=== PATIENT | male | born 1965 | race African-American/Black ===

== ENCOUNTER 2017-12-29 01:20 | Emergency (ER) | payer MEDICAID, SELFPAY ==
[2017-12-29 01:21] VITALS: BP 176/108; PULSE 72; RESP 20; TEMP 36.6; O2SAT 100; BMI 33.4
--- NOTE | 2017-12-29 01:39 | ED.DCSUM_ITS ---
- ER Visit Summary Date of Service: 12/29/17 Chief Complaint: [] Bilateral toes tingling History of Present Illness: The patient is a 52 M patient stated over the last 3 days he has had bilateral diffuse toe tingling. It is continuous. Current severity is mild. No history of neuropathy or diabetes. He has never had this before. He denies any significant pain. No home treatment. Current severity is mild. Physical Examination: [] Vital signs reviewed General: Well-nourished well-developed Head: Normocephalic atraumatic Eyes: Pupils equal round and reactive to light extraocular movements intact ENT: TMs clear no hemotympanum no trauma Neck: Nontender full range of motion Cardiovascular: Regular rate rhythm no murmurs normal S1-S2 Respiratory: No distress clear to auscultation bilaterally chest nontender Abdomen: Soft nontender nondistended normal bowel sounds no masses Back: Nontender no CVA tenderness Extremities: Nontender active range of motion ?4 extremities no trauma. Patient has normal sensation when I touch his toes. Normal range of motion. Dorsalis pedis and posterior tibialis pulses are normal. Normal capillary refill. Normal temperature and color of the toes. No evidence of ischemia. Skin: Normal color no trauma Neuro alert oriented cranial nerves II through XII intact normal strength sensation reflexes Test Results: [] Emergency Department Course and Treatment: [] Electrolytes show calcium of 8.0. Patient given dose of calcium carbonate. He will continue 1 dose of this daily for the next week and see if his symptoms resolve. This could be from his low calcium levels. He will follow-up as an outpatient with podiatry. This could be a neuropathy. This does not appear to be vascular at all. Treatment Plan: [] Disposition: [] Impression: [] Bilateral toe paresthesias Hypocalcemia mild This note was generated with [employer] dictation software. It may contain incorrect words, spelling, and punctuation that were not noted in review of the chart prior to signing ED Disposition - Plan for ED Patient: Chief Complaint: Lower Extremity Injury Referrals: Kady Aguiar MD [Primary Care Provider] -
[2017-12-29 02:05] LABS: Anion Gap 7 (5-15); BUN 14 mg/dL (7-18); BUN/Creat Ratio 14.7 RATIO (10-20); Chloride 112 mmol/L (98-107); Creatinine, Serum 0.95 mg/dL (0.70-1.30); EST Glomerular Filtration Rate 87 mL/min (>60); Est Glom Filt Rate - Afr Amer 106 mL/min (>60); Estimated Creatinine Clearance 106.24 ml/min; Glucose 93 mg/dL (70-110); Potassium 3.9 mmol/L (3.5-5.1); Sodium Level 144 mmol/L (136-145)
--- NOTE | 2017-12-29 02:11 | ED.DEP ---
ED Disposition - Plan for ED Patient: Disposition: Home or Assisted Living Chief Complaint: Lower Extremity Injury Instructions: ED Paraesthesias, ED Hypocalcemia Referrals: Kady Aguiar MD [Primary Care Provider] - Susanne Wilkins DPM [STAFF PHYSICIAN] -
[2017-12-29] MEDS: Calcium Carbonate 500 MG Tablet 1000 MG PO (02:22)
[2017-12-29 02:27] VITALS: BP 183/105; PULSE 72; RESP 16; O2SAT 99
== END 2017-12-29 02:27 | disposition home or self-care (01) ==
PROVIDERS: Emergency Provider Emergency Medicine; Family Provider Family Medicine; PCP Family Medicine
DX: R20.2 Paresthesia of skin (principal); E83.51 Hypocalcemia; E66.9 Obesity, unspecified
CPT/HCPCS: 80048; 99283

== ENCOUNTER 2018-02-27 20:45 | Emergency (ER) | payer MEDICAID, SELFPAY ==
[2018-02-27 20:46] VITALS: BP 188/108; PULSE 85; RESP 14; TEMP 38.3; O2SAT 97; BMI 34.1
--- NOTE | 2018-02-27 21:04 | RAD_ITS ---
STUDY: X-RAY CHEST REASON FOR EXAM: Male, 52 years old. PT STATED COLD SX X3DAYS TECHNIQUE: Frontal and lateral view of the chest. COMPARISON: None. FINDINGS: The lungs are clear and expanded. There is no demonstrated pleural abnormality. Normal size heart. Normal mediastinum and romero. Normal visualized pulmonary arteries. Normal visualized aortic arch and descending thoracic aorta. There are diffuse degenerative changes of the visualized thoracic spine. Normal visualized ribs, clavicles, and shoulders. There is no demonstrated abnormality of the visualized soft tissue structures of the upper abdomen. RAD/Chest PA and Lateral IMPRESSION: There are no acute findings in the chest. Electronically Signed: Cooper Restrepo MD at 21:40 EDT , Service support ,
--- NOTE | 2018-02-27 21:06 | ED.VISSUMM ---
- ER Visit Summary Date of Service: 02/27/18 Chief Complaint: Productive cough, headache and fever History of Present Illness: The patient is a 52 M who has no similar past medical history presents with headache, fever and productive cough with nasal congestion. Onset of illness 3 days ago. He states 1 week ago he was exposed to a person diagnosed with influenza. He is not a smoker. He has no other complaints. Physical Examination: Blood pressure is elevated 188/108 and temperature is 101.0?F. He is not tachypneic nor is he hypoxic. Head is atraumatic normocephalic. Pupils are equal round reactive. Extraocular muscles are intact. TMs were not visualized secondary to cerumen. Nares patent with minimal clear drainage. Posterior pharynx without erythema or exudate. Uvula is midline. There is no dysphonia or dysphasia. Trachea is midline. There is no stridor with auscultation of the neck. Heart is regular without murmur, gallop or rub. S1 and S2 are normal. Lungs are clear to auscultation with good movement of air bilaterally. There is no asymmetry, swelling, discoloration, leg vein distention, palpable cords or tenderness along the distribution of the deep venous system. Neuro exam is nonfocal Test Results: 2 view chest x-ray interpreted by me as negative Emergency Department Course and Treatment: Since patient has a productive cough of green colored sputum with a fever chest x-ray was obtained. Treatment Plan: Patient may have influenza. However since symptoms started 72 hours ago there is no treatment other than symptomatic Disposition: Discharge to home with appropriate home-going instructions Impression: Acute viral infection, influenza This note was generated with [employer] dictation software. It may contain incorrect words, spelling, and punctuation that were not noted in review of the chart prior to signing ED Disposition - Plan for ED Patient: Disposition: Home or Assisted Living Chief Complaint: Cold Sx Instructions: ED Flu Referrals: Kady Aguiar MD [Primary Care Provider] - 10-14 Days if not better
[2018-02-27 21:37] VITALS: BP 160/109; PULSE 77; RESP 22; O2SAT 100
[2018-02-27 21:47] VITALS: RESP 18
== END 2018-02-27 21:48 | disposition home or self-care (01) ==
PROVIDERS: Emergency Provider Emergency Medicine; Family Provider Family Medicine; PCP Family Medicine
DX: J11.1 Influenza due to unidentified influenza virus with other respiratory manifestations (principal); B34.9 Viral infection, unspecified
CPT/HCPCS: 71046; 99282

== ENCOUNTER 2018-05-13 08:21 | Emergency (ER) | payer MEDICAID, SELFPAY ==
[2018-05-13 08:21] VITALS: BP 175/101; PULSE 77; RESP 16; TEMP 36.4; O2SAT 99; BMI 34.2
--- NOTE | 2018-05-13 08:34 | ED.VISSUMM ---
- ER Visit Summary Date of Service: 05/13/18 Chief Complaint: Atraumatic right knee pain and left wrist pain History of Present Illness: The patient is a 52 M who presents with atraumatic right knee pain. He has history of gout. His knee is swollen painful with limited range of motion. He denies fever, chills night sweats. He denies paresthesia, anesthesia medics. He has difficulty ambulating. There is no history of prior injury. He also complains of left wrist pain. He states he was using a hack saw yesterday. He does not have limited range of motion. There is no redness or warmth. He denies paresthesia, anesthesia motors of his digits. Physical Examination: Vital signs are noted. His right knee is swollen. The patella is not ballotable. There is an effusion. He has limited range of motion with pain with passive range of motion. There is no joint line tenderness. Is no laxity with varus valgus stress testing. Unable to test forearm laxity i.e. Lockman or modified Christian's test because of pain. DP PT pulse palpable. There is no erythema induration, lymphangitis or inguinal lymphadenopathy. There is slight warmth. Examination left wrist reveals mild soft tissue swelling. He has full active range of motion. There is no effusion. There is no erythema, warmth, induration, lymphangitis nor is there any epitrochlear extra lymphadenopathy. Test Results: None Emergency Department Course and Treatment: Since patient does not have a ride home he was treated in the emergency part with prednisone and Naprosyn. He was given a prescription for prednisone, Naprosyn and [place]. Treatment Plan: Treat for acute gouty arthritis right knee and left wrist sprain Disposition: Discharged to home with appropriate home-going instructions Impression: 1. Acute gouty arthritis right knee 2. Left wrist strain initial encounter This note was generated with [employer] dictation software. It may contain incorrect words, spelling, and punctuation that were not noted in review of the chart prior to signing ED Disposition - Plan for ED Patient: Disposition: Home or Assisted Living Chief Complaint: Lower Extremity Injury Instructions: ED Sprain Wrist, ED Arthritis Gout, ED Diet Gout Prescriptions: Hydrocodone Bitart/Apap 5-325 [[place] 5MG-325MG] 1 tab PO Q4H PRN PRN 2 Days #10 tab PRN Reason: Pain Prednisone [Deltasone] 40 mg PO DAILY #10 tab Naproxen [Naprosyn] 500 mg PO BID #14 tab Referrals: Kady Aguiar MD [Primary Care Provider] - 3-5 Days if not improving
--- NOTE | 2018-05-13 08:39 | ED.DCSUM_ITS ---
- ER Visit Summary Date of Service: 05/13/18 Chief Complaint: Atraumatic right knee pain and left wrist pain History of Present Illness: The patient is a 52 M who presents with atraumatic right knee pain. He has history of gout. His knee is swollen painful with limited range of motion. He denies fever, chills night sweats. He denies paresthesia, anesthesia medics. He has difficulty ambulating. There is no history of prior injury. He also complains of left wrist pain. He states he was using a hack saw yesterday. He does not have limited range of motion. There is no redness or warmth. He denies paresthesia, anesthesia motors of his digits. Physical Examination: Vital signs are noted. His right knee is swollen. The patella is not ballotable. There is an effusion. He has limited range of motion with pain with passive range of motion. There is no joint line tenderness. Is no laxity with varus valgus stress testing. Unable to test forearm laxity i.e. Lock[place] or modified Christian's test because of pain. DP PT pulse palpable. There is no erythema induration, lymphangitis or inguinal lymphadenopathy. There is slight warmth. Examination left wrist reveals mild soft tissue swelling. He has full active range of motion. There is no effusion. There is no erythema, warmth, induration, lymphangitis nor is there any epitrochlear extra lymphadenopathy. Test Results: None Emergency Department Course and Treatment: Since patient does not have a ride home he was treated in the emergency part with prednisone and Naprosyn. He was given a prescription for prednisone, Naprosyn and [place]. Treatment Plan: Treat for acute gouty arthritis right knee and left wrist sprain Disposition: Discharged to home with appropriate home-going instructions Impression: 1. Acute gouty arthritis right knee 2. Left wrist strain initial encounter This note was generated with [employer] dictation software. It may contain incorrect words, spelling, and punctuation that were not noted in review of the chart prior to signing ED Disposition - Plan for ED Patient: Disposition: Home or Assisted Living Chief Complaint: Lower Extremity Injury Instructions: ED Sprain Wrist, ED Arthritis Gout, ED Diet Gout Prescriptions: Hydrocodone Bitart/Apap 5-325 [[place] 5MG-325MG] 1 tab PO Q4H PRN PRN 2 Days #10 tab PRN Reason: Pain Prednisone [Deltasone] 40 mg PO DAILY #10 tab Naproxen [Naprosyn] 500 mg PO BID #14 tab Referrals: Kady Aguiar MD [Primary Care Provider] - 3-5 Days if not improving
[2018-05-13] MEDS: Naproxen 250 MG Tablet 500 MG PO (08:54)
[2018-05-13] MEDS: predniSONE 20 MG Tablet 60 MG PO (08:55)
== END 2018-05-13 08:58 | disposition home or self-care (01) ==
PROVIDERS: Emergency Provider Emergency Medicine; Family Provider Family Medicine; PCP Family Medicine
DX: M10.9 Gout, unspecified (principal); S66.912A Strain of unspecified muscle, fascia and tendon at wrist and hand level, left hand, initial encounter; X58.XXXA Exposure to other specified factors, initial encounter; Y93.9 Activity, unspecified; Y92.89 Other specified places as the place of occurrence of the external cause; Y99.9 Unspecified external cause status
CPT/HCPCS: 99282

== ENCOUNTER 2018-07-14 01:33 | Emergency (ER) | payer MEDICAID, SELFPAY ==
[2018-07-14 01:36] VITALS: BP 145/96; PULSE 76; RESP 18; TEMP 36.8; O2SAT 97; BMI 34.2
--- NOTE | 2018-07-14 02:01 | ED.DCSUM_ITS ---
- ER Visit Summary Date of Service: 07/14/18 Chief Complaint: [] Left little finger pain and swelling History of Present Illness: The patient is a 53 M with left little finger pain and swelling since yesterday. Gradual onset continuous aching. Worse and moved. Patient stated that he has diffuse intermittent arthralgias and joint swelling. No history of gout. He saw a specialist with no definitive diagnosis. He is to see a new specialist soon. No injury. He is unsure what happened. Home treatment. Physical Examination: [] Vital signs reviewed General: Well-nourished well-developed Head: Normocephalic atraumatic Eyes: Pupils equal round and reactive to light extraocular movements intact ENT: TMs clear no hemotympanum no trauma Neck: Nontender full range of motion Cardiovascular: Regular rate rhythm no murmurs normal S1-S2 Respiratory: No distress clear to auscultation bilaterally chest nontender Abdomen: Soft nontender nondistended normal bowel sounds no masses Back: Nontender no CVA tenderness Extremities: Mild pain to the proximal first joint of the left little finger. Very mild swelling. No redness or warmth. No joint effusion. Skin: Normal color no trauma Neuro alert oriented cranial nerves II through XII intact normal strength sensation reflexes Test Results: [] Emergency Department Course and Treatment: [] Given oral norco. Better after treatment. X-rays do show some mild soft tissue swelling at the PIP joint. At this time patient is having migratory arthritis arthralgia. He denies any history of gout. This could be rheumatoid related. He has an appointment [place] with a specialist coming up. He will be given a short course of prednisone and [place] for pain. He does not want a splint. He will ice and follow-up Treatment Plan: [] Disposition: [] Impression: [] Left little finger arthralgia This note was generated with [employer] dictation software. It may contain incorrect words, spelling, and punctuation that were not noted in review of the chart prior to signing ED Disposition - Plan for ED Patient: Chief Complaint: Upper Extremity Injury Referrals: Kady Aguiar MD [Primary Care Provider] -
[2018-07-14] MEDS: HYDROcodone Bitartrate/Apap 5/325 Tablet PO (02:30)
--- NOTE | 2018-07-14 02:48 | DCINST.ED_ITS ---
ED Disposition - Plan for ED Patient: Disposition: Home or Assisted Living Chief Complaint: Upper Extremity Injury Instructions: ED Joint Pain Prescriptions: Hydrocodone/Acetaminophen [[place] 5-325 Tablet] 1 - 2 ea PO 4X/DAY PRN PRN 3 Days #12 tab PRN Reason: Pain Prednisone [Deltasone] 60 mg PO DAILY #15 tab Referrals: Kady Aguiar MD [Primary Care Provider] -
[2018-07-14] MEDS: predniSONE 20 MG Tablet 60 MG PO (02:59)
== END 2018-07-14 03:02 | disposition home or self-care (01) ==
PROVIDERS: Emergency Provider Emergency Medicine; Family Provider Family Medicine; PCP Family Medicine
DX: M79.645 Pain in left finger(s) (principal); M25.542 Pain in joints of left hand
CPT/HCPCS: 73140; 99283

== ENCOUNTER → 2018-08-19 08:56 | Outpatient (CLI) | payer MEDICAID, SELFPAY ==
--- NOTE | 2018-08-19 09:04 | RAD_ITS ---
STUDY: X-RAY - RIGHT HAND REASON FOR EXAM: Male, 53 years old. Inflammatory polyarthropathy TECHNIQUE: 3 view(s) of the hand. COMPARISON: None. FINDINGS: Normal radiocarpal articulation. Normal distal radioulnar joint. Normal visualized carpal bones. Normal carpal articulations Normal carpometacarpal articulation of the thumb. Normal second through fifth carpometacarpal joints. Normal metacarpi. Normal metacarpophalangeal joint of the thumb. Normal interphalangeal joint of the thumb. Normal proximal and distal phalanges of the thumb. Normal metacarpophalangeal joints of the second through fifth fingers. Mild osteoarthritic type change at the third PIP joint as well as the fifth DIP joint. Normal phalanges of the second through fifth fingers. The soft tissue structures are unremarkable. RAD/Hand Min 3 Views IMPRESSION: Mild osteoarthritic type changes Electronically Signed: Codey Morel DO at 10:14 EDT Tel , Service support ,
--- NOTE | 2018-08-19 09:04 | RAD_ITS ---
STUDY: X-RAY CHEST REASON FOR EXAM: Male, 53 years old. Shortness of breath. TECHNIQUE: Single AP portable view of the chest. COMPARISON: February 27, 2018. FINDINGS: The lungs are clear and expanded. There is no demonstrated pleural abnormality. Normal size heart. Normal mediastinum and romero. Normal visualized pulmonary arteries. Normal visualized aortic arch and descending thoracic aorta. There are diffuse degenerative changes of the visualized thoracic spine. Normal visualized ribs, clavicles, and shoulders. There is no demonstrated abnormality of the visualized soft tissue structures of the upper abdomen. RAD/Chest PA and Lateral IMPRESSION: No acute cardiopulmonary disease or major interval change. Electronically Signed: Michael Cee DO at 9:05 EDT Tel [phone], Service support ,
--- NOTE | 2018-08-19 09:04 | RAD_ITS ---
STUDY: X-RAY - LEFT HAND REASON FOR EXAM: Male, 53 years old. Inflammatory polyarthropathy TECHNIQUE: 3 view(s) of the hand. COMPARISON: None. FINDINGS: Normal radiocarpal articulation. Normal distal radioulnar joint. Normal visualized carpal bones. Normal carpal articulations Normal carpometacarpal articulation of the thumb. Normal second through fifth carpometacarpal joints. Normal metacarpi. There is degenerative arthrosis of the metacarpophalangeal (MCP) joints. Normal interphalangeal joint of the thumb. Normal proximal and distal phalanges of the thumb. Normal metacarpophalangeal joints of the second through fifth fingers. Osteoarthritic type change noted at the third PIP joint, the third DIP joint as well as the fourth DIP joint. Small amount of subchondral cyst formation noted in the third PIP joint. Normal phalanges of the second through fifth fingers. The soft tissue structures are unremarkable. RAD/Hand Min 3 Views IMPRESSION: Degenerative changes as above Electronically Signed: Codey Morel DO at 10:16 EDT Tel , Service support ,
--- NOTE | 2018-08-19 09:04 | RAD_ITS ---
STUDY: X-RAY - RIGHT FOOT CLINICAL: Male, 53 years old. Inflammatory polyarthropathy TECHNIQUE: 2 view(s) of the foot. COMPARISON: None. FINDINGS: Normal talus, calcaneus, and tarsal bones. Normal visualized subtalar, talonavicular, calcaneocuboid, tarsal and tarsometatarsal articulations. Normal metatarsi. Normal metatarsophalangeal joint of the great toe. Normal tibial and fibular sesamoid bones. Normal interphalangeal joint of the great toe. Normal phalanges of the great toe. Normal second through fifth metatarsophalangeal joints. Normal interphalangeal joints and phalanges of the lesser toes. The soft tissue structures are unremarkable. RAD/Foot 2 Views IMPRESSION: Normal x-ray examination of the foot. Electronically Signed: Codey Morel DO at 10:12 EDT Tel , Service support ,
--- NOTE | 2018-08-19 09:04 | RAD_ITS ---
STUDY: X-RAY - LEFT FOOT CLINICAL: Male, 53 years old. Inflammatory arthritis TECHNIQUE: 2 view(s) of the foot. COMPARISON: None. FINDINGS: Normal talus, calcaneus, and tarsal bones. Normal visualized subtalar, talonavicular, calcaneocuboid, tarsal and tarsometatarsal articulations. Normal metatarsi. There is degenerative arthrosis of the metatarsophalangeal joint of the hallux . Normal tibial and fibular sesamoid bones. There is degenerative arthrosis of the interphalangeal joint of the great toe. Normal phalanges of the great toe. Normal second through fifth metatarsophalangeal joints. Normal interphalangeal joints and phalanges of the lesser toes. The soft tissue structures are unremarkable. RAD/Foot 2 Views IMPRESSION: Mild degenerative change of the first metatarsophalangeal joint. Electronically Signed: Codey Morel DO at 10:13 EDT Tel , Service support ,
== END ==
PROVIDERS: Family Provider Family Medicine; PCP Family Medicine
DX: M19.90 Unspecified osteoarthritis, unspecified site (principal); R06.02 Shortness of breath
CPT/HCPCS: 71046; 73130; 73620

== ENCOUNTER 2018-09-20 09:23 | Emergency (ER) | payer MEDICAID, SELFPAY ==
[2018-09-20 09:24] VITALS: BP 167/110; PULSE 87; RESP 18; TEMP 36.6; O2SAT 99; BMI 37.5
--- NOTE | 2018-09-20 09:53 | ED.VISSUMM ---
- ER Visit Summary Date of Service: 09/20/18 Chief Complaint: Right ankle pain History of Present Illness: The patient is a 53 M presenting for evaluation secondary to right ankle pain. Patient reports over the course last 3 days he has had atraumatic right ankle pain. Patient reports that he has a history of gout with attacks in his elbows and knees bilaterally. Patient reports that he just recently saw a specialist who placed him on allopurinol. Patient denies that he has had any recent fevers injections surgeries or history of IV drug use. Denies any chills or weight loss. Review of systems otherwise negative. Physical Examination: Examination of the patient's lower extremity shows no warmth erythema or swelling of the right ankle but there is tenderness palpation of the medial malleolus with normal pulses normal distal sensation normal range of motion of the foot Test Results: None indicated Emergency Department Course and Treatment: Patient presented for evaluation secondary to ankle pain with a history of gout. I reviewed patient's prescription reporting record, it does not seem abnormal. Patient will be placed on a course of prednisone and [place]. Disposition: Discharge Impression: Gout in the right ankle This note was generated with [employer] dictation software. It may contain incorrect words, spelling, and punctuation that were not noted in review of the chart prior to signing ED Disposition - Plan for ED Patient: Disposition: Home or Assisted Living Chief Complaint: Lower Extremity Injury Diagnosis: Gout Instructions: ED Arthritis Gout Prescriptions: Hydrocodone Bitart/Apap 5-325 [[place] 5MG-325MG] 1 tab PO Q6H PRN PRN 3 Days #12 tab PRN Reason: Pain Prednisone [Deltasone] 60 mg PO DAILY #15 tab Referrals: Kady Aguiar MD [Primary Care Provider] - 1-2 Weeks
--- NOTE | 2018-09-20 09:58 | ED.DCSUM_ITS ---
- ER Visit Summary Date of Service: 09/20/18 Chief Complaint: Right ankle pain History of Present Illness: The patient is a 53 M presenting for evaluation secondary to right ankle pain. Patient reports over the course last 3 days he has had atraumatic right ankle pain. Patient reports that he has a history of gout with attacks in his elbows and knees bilaterally. Patient reports that he just recently saw a specialist who placed him on allopurinol. Patient denies that he has had any recent fevers injections surgeries or history of IV drug use. Denies any chills or weight loss. Review of systems otherwise negative. Physical Examination: Examination of the patient's lower extremity shows no warmth erythema or swelling of the right ankle but there is tenderness palpation of the medial malleolus with normal pulses normal distal sensation normal range of motion of the foot Test Results: None indicated Emergency Department Course and Treatment: Patient presented for evaluation secondary to ankle pain with a history of gout. I reviewed patient's prescription reporting record, it does not seem abnormal. Patient will be placed on a course of prednisone and [place]. Disposition: Discharge Impression: Gout in the right ankle This note was generated with [employer] dictation software. It may contain incorrect words, spelling, and punctuation that were not noted in review of the chart prior to signing ED Disposition - Plan for ED Patient: Disposition: Home or Assisted Living Chief Complaint: Lower Extremity Injury Diagnosis: Gout Instructions: ED Arthritis Gout Prescriptions: Hydrocodone Bitart/Apap 5-325 [[place] 5MG-325MG] 1 tab PO Q6H PRN PRN 3 Days #12 tab PRN Reason: Pain Prednisone [Deltasone] 60 mg PO DAILY #15 tab Referrals: Kady Aguiar MD [Primary Care Provider] - 1-2 Weeks
[2018-09-20] MEDS: HYDROcodone Bitartrate/Apap 5/325 Tablet PO (10:08)
== END 2018-09-20 10:14 | disposition home or self-care (01) ==
PROVIDERS: Emergency Provider Emergency Medicine; Family Provider Family Medicine; PCP Family Medicine
DX: M10.9 Gout, unspecified (principal)
CPT/HCPCS: 99283

== ENCOUNTER → 2018-10-19 10:36 | Outpatient (CLI) | payer MEDICAID, SELFPAY ==
[2018-09-20 09:24] VITALS: BMI 37.5
[2018-10-19 12:18] LABS: Color, Urine Yellow (Yellow); Glucose, Dipstick Normal (Normal); Ketone-Dipstick Negative (Negative); Leukocyte Esterase-Dipstick Negative /ul (Negative); Nitrite-Dipstick Negative (Negative); Occult Blood-Urine 10 /ul (Negative); Protein-Dipstick Negative (Negative); Urine Bilirubin Dipstick Negative (Negative); Urine Clarity Clear (Clear); Urine Urobilinogen Normal (Normal)
[2018-10-19 12:24] LABS: Hematocrit 44.7 % (40-54); Hemoglobin 14.7 g/dl (13.0-16.5); Lymphocyte % 36.5 % (19-41); Mean Corp Hgb Conc 32.9 g/gl (32-36); Mean Corpuscular Hgb 30.2 pg (27.0-32.0); Mean Platelet Vol. 10.8 fl (6.2-12.0); Monocyte% 7.7 % (0-10); Platelet Count 255 K/mm3 (150-450); RBC Distribution Width CV 14.1 % (11.6-14.6); RBC Distribution Width SD 46.6 fl (35.1-43.9); Red Blood Count 4.86 M/mm3 (4.6-6.2); White Blood Count 8.7 K/mm3 (4.4-11.0)
[2018-10-19 12:25] LABS: Absolute Lymphocyte Count 3.18 X10^3/ul (0.83-4.51); Absolute Neutrophil Count 4.6 X10^3/uL (2.0-7.7); Basophil# 0.03 X10^3/uL; Basophil% 0.3 % (0-1); Eosinophil# 0.17 X10^3/uL; Lymphocyte # 3.18 X10^3/ul (4.0); Monocyte# 0.67 X10^3/uL; Neutrophil # 4.62 X10^3/uL (2.7-7.7)
[2018-10-19 12:36] LABS: POSITIVE COUNT NO; POSITIVE DIFFERENTIAL NO; POSITIVE MORPHOLOGY NO
[2018-10-19 12:44] LABS: ALB/GLOB Ratio 0.9 RATIO (0.9-2.4); AST(SGOT) 18 U/L (15-37); Alanine Aminotransfer ALT/SGPT 28 U/L (16-61); Albumin, Serum 3.7 g/dL (3.2-5.0); Alkaline Phosphatase 76 U/L (45-117); Anion Gap 8 (5-15); BUN 21 mg/dL (7-18); BUN/Creat Ratio 16.9 RATIO (10-20); CPK Total, Creatine Kinase 257 U/L (39-308); Calcium,Total 8.5 mg/dL (8.5-10.1); Chloride 107 mmol/L (98-107); Creatinine, Serum 1.24 mg/dL (0.70-1.30); EST Glomerular Filtration Rate 64 mL/min (>60); Est Glom Filt Rate - Afr Amer 78 mL/min (>60); Glucose 76 mg/dL (74-106); Potassium 4.2 mmol/L (3.5-5.1); Protein, Total 7.7 g/dL (6.4-8.2); Sodium Level 140 mmol/L (136-145)
== END ==
PROVIDERS: Family Provider Family Medicine; PCP Family Medicine
DX: M10.9 Gout, unspecified (principal)
CPT/HCPCS: 36415; 80053; 81002; 82550; 85025

== ENCOUNTER 2018-11-20 13:11 | Emergency (ER) | payer MEDICAID, SELFPAY ==
[2018-11-20 13:11] VITALS: BP 193/114; PULSE 122; RESP 16; TEMP 36.4; O2SAT 97; BMI 37.5
--- NOTE | 2018-11-20 13:35 | RAD_ITS ---
STUDY: X-RAY - RIGHT KNEE REASON FOR EXAM: Male, 53 years old. Right knee pain TECHNIQUE: 2 view(s) of the knee. COMPARISON: 11/09/2017 FINDINGS: Normal visualized distal femur. Normal visualized proximal tibia and fibula. Normal proximal tibiofibular articulation. Normal medial femorotibial compartment. Normal lateral femorotibial compartment. Normal patellofemoral articulation. Trace joint effusion Prominent prepatellar soft tissue swelling. RAD/Knee 1 or 2 Views IMPRESSION: No evidence of acute fracture. Soft tissue swelling. Trace joint effusion. Electronically Signed: Codey Morel DO at 13:59 EST Tel , Service support ,
--- NOTE | 2018-11-20 13:50 | ED.VISSUMM ---
- ER Visit Summary Date of Service: 11/20/18 Chief Complaint: Right knee pain History of Present Illness: The patient is a 53 M presenting with right knee pain. He states this has been ongoing for the past 4 days. He is unsure if he may have hit his knee on something. He complains of right knee pain and swelling. He states this has happened in the past. He states that he may have a history of gout but he is unsure. He denies fever. Denies other complaints. Physical Examination: Vitals are stable. Patient is afebrile. Alert no acute distress. HEENT exam is unremarkable. Neck is supple. Lungs are clear and equal bilaterally. Heart is regular rate and rhythm. Abdomen is soft nontender nondistended. Extremities right knee swelling, warmth, painful range of motion. Normal distal pulses Skin is warm and dry. No focal neurologic deficit. Remainder of exam is unremarkable. Emergency Department Course and Treatment: Patient given morphine, Zofran IV. Right knee x-ray shows no evidence of acute fracture. Soft tissue swelling. Trace joint effusion. Arthrocentesis right knee was performed. Gram stain shows no organisms. Cell count shows 97,000 red blood cells, 3,952 white blood cells. Crystals negative. Patient feels improved following arthrocentesis. He is given a prescription for Percocet. He has crutches. Advised to follow-up with orthopedics. Advised return to ED for worsening complaints. Disposition: Discharge home Impression: Hemarthrosis This note was generated with [employer] dictation software. It may contain incorrect words, spelling, and punctuation that were not noted in review of the chart prior to signing ED Disposition - Plan for ED Patient: Chief Complaint: Lower Extremity Injury Instructions: ED Knee Pain [facility] Prescriptions: Oxycodone HCl/Acetaminophen [Percocet 5/325] 1 tablet PO Q6H PRN PRN 3 Days #12 tablet PRN Reason: Pain Referrals: Kady Aguiar MD [Primary Care Provider] - Hector Caldwell MD [STAFF PHYSICIAN] -
[2018-11-20] MEDS: morphine 8 MG/ML Syringe IV (14:04)
[2018-11-20] MEDS: Ondansetron 4 MG/2 ML Vial IV (14:04)
[2018-11-20] MEDS: Morphine 4 MG/ML Syringe IV (14:44)
[2018-11-20 15:23] LABS: Pathologist Comment May follow
[2018-11-20 16:51] LABS: AUTO B FLUID DILUENT BKGD CT WBC <0.1 RBC <0.01 (W<.1,R<.01); Appearance /Synovial Fluid Cloudy (CLEAR); Color / Synovial Fluid Red (Pale Yellow); Source / Synovial Fluid RIGHT KNEE; Source- Body Fluid SYNOVIAL
[2018-11-20 16:52] LABS: Body Fluid QC Type(s) BF1Q,BF2Q; Lymph 2 %; Monocyte /Synovial Fluid 8 %; Neutrophil 90 % (0-25); RBC /Synovial Fluid 0.097 10^6/uL (0); Synovial Fld Mononuclear WBC # 0.583 10^3/ul; Synovial Fld Mononuclear WBC % 14.8 %; Synovial Fld Polynuclear WBC # 3.369 10^3/ul; Synovial Fld Polynuclear WBC % 85.2 %
--- NOTE | 2018-11-20 17:12 | ED.DEP ---
ED Disposition - Plan for ED Patient: Chief Complaint: Lower Extremity Injury Instructions: ED Knee Pain [facility] Prescriptions: Oxycodone HCl/Acetaminophen [Percocet 5/325] 1 tablet PO Q6H PRN PRN 3 Days #12 tablet PRN Reason: Pain Referrals: Kady Aguiar MD [Primary Care Provider] - Hector Caldwell MD [STAFF PHYSICIAN] -
[2018-11-20] MEDS: HYDROcodone Bitartrate/Apap 5/325 Tablet PO (17:34)
[2018-11-20 17:40] VITALS: BP 178/91; PULSE 78; RESP 16; O2SAT 99
[2018-11-21 10:03] LABS: Pathologist Review Reviewed
== END 2018-11-20 17:41 | disposition home or self-care (01) ==
LOC: ED 13:46
PROVIDERS: Emergency Provider Emergency Medicine; Family Provider Family Medicine; PCP Family Medicine
DX: M25.061 Hemarthrosis, right knee (principal)
CPT/HCPCS: 20610; 73560; 73564; 87205; 89050; 89051; 89060; 96374; 96375; 96376; 99284; A4216; J2405

== ENCOUNTER 2018-11-23 11:18 | Emergency (ER) | payer MEDICAID, SELFPAY ==
[2018-11-23 11:18] VITALS: BP 159/95; PULSE 110; RESP 18; TEMP 36.6; O2SAT 100; BMI 37.5
--- NOTE | 2018-11-23 11:40 | VDLE_ITS ---
Reason For Study: LEG PAIN AND SWELLING RIGHT GSV is normal. CFV is compressible, spontaneous, phasic, competent and demonstrates normal augmentation. FV is compressible, spontaneous, phasic, competent and demonstrates normal augmentation. POP V is compressible, spontaneous, phasic, competent and demonstrates normal augmentation. T/P Trunk is compressible. PTV is compressible. RT PerV is compressible. Procedure Exam performed portable in ED. A preliminary report was called and/or faxed to Dr Reed. Interpretation Summary There is no evidence of right lower extremity deep vein thrombosis. Right greater saphenous vein appears patent and compressible segmentally. Ordering Physician: Mc Reed Referring Physician: Kady Aguiar M.D. Performed By: Iman Sterling RVT
--- NOTE | 2018-11-23 12:10 | ED.VISSUMM ---
- ER Visit Summary Date of Service: 11/23/18 Chief Complaint: Severe right knee pain and right calf pain and swelling History of Present Illness: The patient is a 53 M who has history of gout. He had an arthrocentesis performed by Dr. Conway on Wednesday. Arthrocentesis was remarkable for a hematoma. He presents because of severe pain and more importantly and concerning to patient is right calf pain with swelling. He has no history of PE or DVT. He denies shortness of breath, pleuritic chest pain, dyspnea on exertion. He denies fever, chills or night sweats. He denies weight gain or weight loss. He denies history of trauma. Please read written note for complete detail Physical Examination: Vital signs noted and remarkable for an elevated blood pressure of 159/95. HEENT exam is unremarkable. Heart is regular without murmur, gallop or rub. S1 and S2 are normal. Lungs are clear to auscultation with good movement of air bilaterally. Abdomen is soft nontender. There is no palpable cell mass or abdominal bruit. Right calf is swollen painful slightly erythematous. There is pain along the distribution deep venous system. The right knee is larger than the left knee. There is a small effusion. The patella is not ballotable. Passive range of motion causes him discomfort. Test Results: Venous duplex study right lower extremity was negative. Emergency Department Course and Treatment: Because of the leg pain swelling discoloration will obtain venous duplex study to evaluate for DVT. Treatment Plan: Patient was reassessed at 1250. He reports pain improved markedly. He was discharged home with appropriate home-going instructions Disposition: Discharged home in stable improved condition Impression: 1. Right knee pain secondary to hemarthrosis 2. Right calf pain and swelling uncertain etiology This note was generated with [employer] software. It may contain incorrect words, spelling, and punctuation that were not noted in review of the chart prior to signing ED Disposition - Plan for ED Patient: Disposition: Home or Assisted Living Chief Complaint: Lower Extremity Injury Instructions: ED Acute Pain [facility] Referrals: Kady Aguiar MD [Primary Care Provider] - 1-2 Days if not improving
--- NOTE | 2018-11-23 12:13 | ED.DCSUM_ITS ---
- ER Visit Summary Date of Service: 11/23/18 Chief Complaint: Severe right knee pain and right calf pain and swelling History of Present Illness: The patient is a 53 M who has history of gout. He had an arthrocentesis performed by Dr. Conway on Wednesday. Arthrocentesis was remarkable for a hematoma. He presents because of severe pain and more importantly and concerning to patient is right calf pain with swelling. He has no history of PE or DVT. He denies shortness of breath, pleuritic chest pain, d yspnea on exertion. He denies fever, chills or night sweats. He denies weight gain or weight loss. He denies history of trauma. Please read written note for complete detail Physical Examination: Vital signs noted and remarkable for an elevated blood pressure of 159/95. HEENT exam is unremarkable. Heart is regular without murmur, gallop or rub. S1 and S2 are normal. Lungs are clear to auscultation with good movement of air bilaterally. Abdomen is soft nontender. There is no palpable cell mass or abdominal bruit. Right calf is swollen painful slightly erythematous. There is pain along the distribution deep venous system. The right knee is larger than the left knee. There is a small effusion. The patella is not ballotable. Passive range of motion causes him discomfort. Test Results: Venous duplex study right lower extremity was negative. Emergency Department Course and Treatment: Because of the leg pain swelling discoloration will obtain venous duplex study to evaluate for DVT. Treatment Plan: Patient was reassessed at 1250. He reports pain improved markedly. He was discharged home with appropriate home-going instructions Disposition: Discharged home in stable improved condition Impression: 1. Right knee pain secondary to hemarthrosis 2. Right calf pain and swelling uncertain etiology This note was generated with Medium[employer] software. It may contain incorrect words, spelling, and punctuation that were not noted in review of the chart prior to signing ED Disposition - Plan for ED Patient: Disposition: Home or Assisted Living Chief Complaint: Lower Extremity Injury Instructions: ED Acute Pain [facility] Referrals: Kady Aguiar MD [Primary Care Provider] - 1-2 Days if not improving
[2018-11-23] MEDS: Ondansetron 4 MG/2 ML Vial IV (12:32)
[2018-11-23] MEDS: Morphine 4 MG/ML Syringe IV (12:32)
[2018-11-23] MEDS: Ketorolac 15 MG/ML Vial IV (12:32)
[2018-11-23 13:30] VITALS: BP 166/79; PULSE 83; RESP 16; O2SAT 98
== END 2018-11-23 13:30 | disposition home or self-care (01) ==
PROVIDERS: Emergency Provider Emergency Medicine; Family Provider Family Medicine; PCP Family Medicine
DX: M25.061 Hemarthrosis, right knee (principal); M79.661 Pain in right lower leg; M79.89 Other specified soft tissue disorders; R21 Rash and other nonspecific skin eruption; M10.9 Gout, unspecified
CPT/HCPCS: 93971; 96374; 96375; 99283; J2405

== ENCOUNTER 2019-06-08 05:14 | Emergency (ER) | payer SELFPAY ==
[2019-06-08 05:15] VITALS: BP 155/87; PULSE 82; RESP 16; TEMP 36.7; O2SAT 100; BMI 32.1
--- NOTE | 2019-06-08 05:18 | RAD_ITS ---
STUDY: X-RAY - LEFT SHOULDER REASON FOR EXAM: Male, 54 years old. Injured shoulder lifting weights. TECHNIQUE: 4 view(s) of the shoulder. COMPARISON: None. FINDINGS: Normal glenohumeral articulation. There is a calcification along the inferior aspect of the glenohumeral joint which may represent a synovial osteochondroma. There is degenerative arthrosis of the acromioclavicular joint with mild inferior osseous spur formation. Normal acromion. Normal humeral head and visualized proximal humerus. There is periarticular soft tissue calcification consistent with a calcific tendinitis. Normal visualized pulmonary apex. RAD/Shoulder min 2 Views IMPRESSION: Degenerative changes. No demonstrated fracture, dislocation, or destructive osseous lesion. Electronically Signed: Edwardo Hubbard MD at 5:39 EDT , Service support ,
[2019-06-08] MEDS: HYDROcodone Bitartrate/Apap 5/325 Tablet PO (05:28)
--- NOTE | 2019-06-08 05:48 | ED.DCSUM_ITS ---
- ER Visit Summary Date of Service: 06/08/19 Chief Complaint: Left shoulder pain History of Present Illness: The patient is a 54 M who has left shoulder pain. Started 3 days ago when he was lifting weights. He felt a tear in his left shoulder. He was helping a friend with weights tonight when he heard it even further. The pain is worse with movement and better with rest. He took aspirin but no other medications for it. Denies any history of fracture or surgeries to the shoulder. Physical Examination: Vital signs reviewed. Left shoulder exam reveals tenderness over the superior portion of the deltoid into the bicipital groove. He has limited range of motion secondary to pain and cannot lift it above 90 degrees. He has a 2+ radial pulse. There is no bony or clavicular tenderness. Test Results: X-rays of the left shoulder reveal no acute findings Emergency Department Course and Treatment: He was given [place] here for pain. My concern is that he may have a ligamentous injury. I will give him a sling for comfort. 8 [place] for pain at home. He will follow-up with Dr. Medrano Treatment Plan: [] Disposition: Discharge Impression: Left shoulder pain This note was generated with [employer] dictation software. It may contain incorrect words, spelling, and punctuation that were not noted in review of the chart prior to signing ED Disposition - Plan for ED Patient: Referrals: Kady Aguiar MD [Primary Care Provider] -
--- NOTE | 2019-06-08 05:49 | ED.DEP ---
ED Disposition - Plan for ED Patient: Disposition: Home or Assisted Living Instructions: Shoulder Sprain Prescriptions: Hydrocodone Bitart/Apap 5-325 [[place] 5MG-325MG] 1 tab PO Q6H PRN PRN 3 Days #8 tab PRN Reason: Pain Prescription Printed Referrals: Kady Aguiar MD [Primary Care Provider] - Maci Dorsey DO [STAFF PHYSICIAN] -
[2019-06-08 05:55] VITALS: BP 155/87; PULSE 82; RESP 16; O2SAT 100
== END 2019-06-08 05:56 | disposition home or self-care (01) ==
PROVIDERS: Emergency Provider Emergency Medicine; Family Provider Family Medicine; PCP Family Medicine
DX: M25.512 Pain in left shoulder (principal)
CPT/HCPCS: 73030; 99283

== ENCOUNTER 2019-06-10 07:58 | Emergency (ER) | payer SELFPAY ==
[2019-06-10 07:59] VITALS: BP 162/93; PULSE 105; RESP 18; TEMP 36.6; O2SAT 100; BMI 35.6
--- NOTE | 2019-06-10 08:17 | ED.VIS.GEN ---
History of Present Illness Chief Complaint: Upper Extremity Injury Informant: Patient Context: Onset with activity Timing: Continuous Current Severity: Moderate Maximum Severity: Moderate Narrative: Patient presents with left hand pain and left shoulder pain. He was recently seen after a shoulder injury lifting weights, now he also has left hand pain that started a few days ago. Most of the pain is dorsum of the left hand at the third MP joint. No fever chills no redness no lymphangitic streaking. Pain is moderate and achy. Past Medical History - Allergies and Home Meds Allergies/Adverse Reactions: Allergies No Known Allergies Allergy (Verified 06/10/19 08:02) Primary Care Physician: Kady Aguiar MD [Primary Care Provider] - Past Medical History: None Smoking Status: Never smoker Review of Systems General: Denies: Fever Cardiovascular: Denies: Chest pain Respiratory: Denies: Dyspnea Musculoskeletal: Reports: - - Hand and shoulder pain as in HPI Skin: Denies: Rash, Abrasions Neurological: Denies: Weakness, Parasthesia Hematologic: Denies: Easy bruising Physical Exam Vital Signs/Narrative: Vital Signs Temp Pulse Resp BP Pulse Ox 06/10/19 07:59 97.9 F 105 H 18 162/93 H 100 General: Well nourished, Well developed Neck: Supple, Nontender Cardiovascular: Regular rate Respiratory: No distress Back: Nontender Extremities: - - Left shoulder has decreased range of motion, there is no obvious deformity, it is quite painful to movement.Left hand has tenderness and swelling over the third MP joint region. Patient is able to flex and extend the hand. There is no erythema or calor. Skin: Normal color, No rash Neurological: Normal Sensation, Weakness Diagnostic/Tx/Re-eval - Medical Decision Making Patient has a normal x-ray. Apparently he has had multiple episodes of inflammation in his joints in the past apparently he is seeing a life science research assistant but does not have any diagnosis, either way this does not appear infectious in etiology I will treat with analgesia. Discharge stable condition ED Disposition - Plan for ED Patient: Disposition: Home or Assisted Living Diagnosis: Hand pain, left Instructions: CONTUSION, Hand, Sprain Hand Prescriptions: Oxycodone HCl/Acetaminophen [Percocet 5/325] 1 tab PO Q4H PRN PRN 3 Days #12 tab PRN Reason: Pain Prescription Printed Referrals: Kady Aguiar MD [Primary Care Provider] - 3-5 Days
[2019-06-10] MEDS: oxyCODONE 5 MG Tablet PO (08:30)
--- NOTE | 2019-06-10 08:32 | RAD_ITS ---
STUDY: X-RAY - LEFT HAND REASON FOR EXAM: Male, 54 years old. Pain. Swelling. Third finger and metatarsal region of interest. TECHNIQUE: 3 view(s) of the hand. COMPARISON: August 19, 2018. FINDINGS: No acute fracture. No dislocation. Cyst/erosion at the third proximal phalanx head. Third metacarpal head cyst/erosion best seen on the lateral projection. Minimal joint space narrowing at the distal interphalangeal joints. Soft tissue swelling at the dorsal aspect of the hand adjacent to the metacarpophalangeal regions. RAD/Hand Min 3 Views IMPRESSION: Small nonspecific cyst/erosions predominating at the third proximal phalanx head and third metacarpal head (most compatible with inflammatory arthropathy given patient's clinical history) Soft tissue swelling predominates at the MCP regions Electronically Signed: Jorge Collins DO at 9:04 EDT Tel , Service support ,
[2019-06-10 10:00] VITALS: BP 156/100; PULSE 78; RESP 16
== END 2019-06-10 10:01 | disposition home or self-care (01) ==
PROVIDERS: Emergency Provider Emergency Medicine; Family Provider Family Medicine; PCP Family Medicine
DX: M79.642 Pain in left hand (principal); M25.512 Pain in left shoulder
CPT/HCPCS: 73130; 99283

== ENCOUNTER → 2019-10-03 14:57 | Outpatient (CLI) | payer MEDICAID, SELFPAY ==
[2019-10-03 14:53] VITALS: BMI 35.6
--- NOTE | 2019-10-03 14:58 | RAD_ITS ---
STUDY: X-RAY - RIGHT WRIST REASON FOR EXAM: Pain, unsure of injury. TECHNIQUE: 3 view(s) of the wrist were obtained. COMPARISON: Radiographs of the right hand 08/19/2018 FINDINGS: Normal visualized distal radius and ulna. Normal radiocarpal articulation. Normal distal radioulnar articulation. Normal carpal bones. Normal carpal articulations. Normal carpometacarpal articulation of the thumb. Normal second through fifth carpometacarpal articulations. Normal visualized metacarpal bones. The soft tissue structures are unremarkable. RAD/Wrist min 3 Views IMPRESSION: Normal x-ray examination of the right wrist. Electronically Signed: Graham Mercer MD at 15:17 EST Tel , Service support ,
== END ==
PROVIDERS: Family Provider Family Medicine; PCP Family Medicine; Referring Provider Orthopaedic Surgery; Visit Provider Orthopaedic Surgery
DX: R20.0 Anesthesia of skin (principal)
CPT/HCPCS: 73110

== ENCOUNTER 2019-12-27 08:10 | Day surgery (SDC) | payer MEDICAID, SELFPAY ==
[2019-12-12 09:28] VITALS: BMI 33.7
--- NOTE | 2019-12-12 12:02 | HP_ITS ---
I have re-examined the patient. There are no clinical changes since date of exam. Intake Vital Signs 12/12/19 Height 6 ft 3 in 12/12/19 Weight: 270 lb Intake Visit Reasons: Right hand Allergies No Known Allergies Allergy (Verified 06/10/19 08:02) Medications gabapentin 100 mg capsule PO #90 cap 11/07/19 [History Confirmed 12/12/19] PFSH Surgical History (Updated 11/18/17 @ 14:45 by Muna Crook) H/O eye surgery (Inactive) Social History (Updated 12/12/19 @ 13:50 by Maci Dorsey DO) Smoking Status: Never smoker HPI Right hand: Surgical H&P: Yes Details: Parts of this documentation were recorded by a scribe, this documentation accurately reflects the service provided and the decisions made by me, Maci Dorsey DO 12/12/19 4824. AMELIA WEST is a 54 year old M here today for F/U after having right carpal tunnel injection on 11/07/19. He states that the injection was helpful in taking away some of the numbness and tingling but he is still having some pain/and tingling of his 4th and 3rd fingers. Dr. Pimentel has started him on Gabapentin which has been taking some of the pain and tingling away in the hand. ROS Musc Denies joint pain, Denies joint swelling, Reports numbness, Denies radiating pain into limb, Denies stiffness, Reports tingling Skin/Breast Denies redness, Denies lesions, Denies itching, Denies rash Neuro Yes as per HPI, Yes numbness, Yes tingling Ortho Exam Right Wrist/Hand Skin/Wound: Yes CDI Contralateral Normal: Yes Right Wrist: Yes ROM-Extension 0-60, ROM-Flexion 0-80, ROM-Pronation 0-80 and ROM-Supination 0-90; no Durken's Test Motor: EPL: 5, FDP-2: 5, 1st Dorsal Interosseous: 5, APB: 5 Sensation: Ulnar: D WRIST: numbness does not change with Durkens Right Elbow Skin/Wound: Yes CDI ROM: Yes Flexion 0-140, Extension 0, Supination 0-90 and Pronation 0-80 Test: No Ulnar Nerve Subluxation Sensation: Ulnar: D Motor: Elbow Extension: 5, Elbow Flexion: 5, EPL: 5, FDP-2: 5, 1st Dorsal Interosseous: 5 No rales rhonchi wheezing, no abdominal pain, no audible bruits Assessment & Plan Problems 1. 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 Right carpal tunnel syndrome G56.01 3. Cubital tunnel syndrome on right G56.21 Plan Reviewed the continued pain and numbness after steroid injection. His treatment options now are release of the carpal tunnel and cubital tunnel. Reviewed the post op restrictions and splint use. Reviewed the pre-operative plans with the patient. Risks and benefits of the procedure were fully explained, including but not limited to infection, neurovascular injury, continued pain, arthritis, stiffness, need for further surgery, re-injury, DVT, PE, general risks of anesthesia, and loss of limb or life. The patient understands all the risks and does wish to proceed with written consent. Follow up post op or sooner if pain, swelling, numbness or associated symptoms, or concerns develop. All questions answered. Patient in agreement of plan. 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
[2019-12-27] VITALS (7 sets, daily range): BP systolic 140–179; BP diastolic 74–101; PULSE 66–96; RESP 16–18; TEMP 36.2–37.1; O2SAT 96–100; BMI 35.2
[2019-12-27] MEDS: Lactated Ringers 1,000 ML 100 ML IV (08:48)
[2019-12-27] MEDS: Cefazolin 2 GM in 0.9% Normal Saline 100 ML IV (09:36)
[2019-12-27] MEDS: Mupirocin Ointment 22gm Tube 1 APPLIC (10:54)
--- NOTE | 2019-12-27 10:56 | DCINST_ITS ---
Discharge Diet: No Restrictions - LEAVE SPLINT AND DRESSING INTACT, FOLLOW UP IN 2 WEEKS APPT Kami SHAFER, CALL WITH CONCERNS Discharge Activity: May Not Drive May shower in (days): 1 Ice area for (Minutes): 20 - Every hour while awake. Weight Bearing Status: Weight bearing as tolerated Keep extremity elevated above heart level: Operative Extremity Call your doctor if your incision/area has: Continuous Slow Oozing, Sudden Increased Bleeding, Increased Pain/ Swelling, Increased Redness, Foul Smelling Discharge Call your doctor if you observe: Fever of 101 or Higher, Coldness, Increased Pain, Numbness or Tingling, Change in Color, Calf discomfort Allergies/Adverse Reactions: Allergies No Known Allergies Allergy (Verified 12/27/19 08:31) Medications to take at Discharge gabapentin 100 mg capsule 100 mg PO TID #90 cap 11/07/19 Primary Care Physician: Kady Aguiar MD [Primary Care Provider] - Test Results: Test results from this visit will be discussed in further detail at your follow- up appointment, if applicable. Please Follow Up With: Maci Dorsey, - [phone]
--- NOTE | 2019-12-27 10:56 | PCM.OPRPT ---
Report of Operation Date of Procedure: 12/27/19 Pre-Operative Diagnosis: RIGHT CARPAL TUNNEL AND CUBITAL TUNNEL SYNDROME Post-Operative Diagnosis: SAME Surgery/Procedure Performed:: RIGHT CARPAL AND CUBITAL TUNNEL RELEASE party plan sales unit advisor: Preito Rosado Type of Anesthesia:: General Anesthesiologist: Jorge Ayala Replaced: [id number] LR Description of Procedure: Preop preoperative note Patient is a 54 year old patient with nerve conduction study confirming carpal tunnel and cubital syndrome. Patient failed conservative treatment for carpal tunnel and cubital tunnel.. Risks benefits and alternatives surgery discussed with patient. Risks including but not limited to blood loss, blood clot, infection, neurovascular injury, failure procedure, loss of life and loss of limb. Patient is aware like proceed with right carpal tunnel release and cubital tunnel release. Operative note Patient seen and examined preoperative holding area. right hand was marked. History and physical and consent reviewed. Patient was brought to the operating room placed supine on the operating table. Sign in, anesthesia, antibiotics were administered. right upper extremity was prepped and draped after Janina block was initiated. All bony prominences well-padded SCDs placed on bilateral lower extremities. We marked out our incisions for our carpal tunnel release at the intersection of Jose's line in the fourth ray flexed. We extended about a centimeter and a half. Also marked our incision for our cubital tunnel release curvilinear centered between the medial epicondyle and the trochlea extending about 3 cm proximally distally. Timeout was performed. We then used a 15 blade to make a skin incision. We then dissected down tenotomy syllable of the transverse carpal ligament. We then used a new 15 blade cut through the transverse carpal ligament down to the level of the median nerve. We then further released the median nerve the combination of the 15 blade and tenotomies. The nerve was grayish in color and adherent to the transverse carpal ligament volarly. We released the transverse carpal ligament distally to the fat pad and then proximally under standard technique. We then palpated to ensure that we released all of the transverse carpal ligament which we did. We irrigated the incision with copious amounts of sterile saline. All bleeders were coagulated. We made to use a 15 blade cut the skin dissected down times the level of the medial upper tract took layer fascia the fascia was excised over the nerve the nerve was found and is released proximally distally all 7 sites of compression we found the ulnar nerve proximally and decompression proximally and then followed the nerve distally through the cubital tunnel under Alejandro's ligament into the aponeurosis of the 2 heads of the flex flexor carpi ulnaris. all sites were released in standard technique. We used vessel loops in order to ensure that we had complete excision of the scar tissue surrounding the nerve we did protect all branches of the nerve at all time. We then assessed by flexing and extending the elbow to ensure that the nerve did not sublux or dislocate. we then irrigated the incision with copious amounts of sterile saline the skin was closed with 2-0 Vicryl in a running 4 Monocryl The incision was closed with interrupted 4-0 nylon stitches. A posterior splint was applied to the elbow. Tourniquet was deflated. Patient tolerated procedure well there were no complications. Patient transferred to recovery room in stable condition. Postoperative note Hospital pharmacy has prescription Leave dressing clean dry and intact Follow-up in 2 weeks Call with concerns This note was generated with [employer] software. It may contain incorrect words, spelling, and punctuation that were not noted in checking the note before signing .
[2019-12-27] MEDS: HYDROcodone Bitartrate/Apap 5/325 Tablet PO (12:42)
== END 2019-12-27 14:04 | disposition home or self-care (01) ==
LOC: SDC 08:10 → AC 08:13
PROVIDERS: PCP Family Medicine; Referring Provider Orthopaedic Surgery; Visit Provider Orthopaedic Surgery
DX: G56.21 Lesion of ulnar nerve, right upper limb (principal); G56.01 Carpal tunnel syndrome, right upper limb
CPT/HCPCS: 64718; 64721; J7120; A4216; J2405

== ENCOUNTER 2020-01-05 19:58 | Emergency (ER) | payer MEDICAID, SELFPAY ==
[2019-12-27 08:33] VITALS: BMI 35.2
[2020-01-05 19:59] VITALS: BP 161/98; PULSE 77; RESP 15; TEMP 37.2; O2SAT 96; BMI 34.5
--- NOTE | 2020-01-05 20:19 | ED.DCSUM_ITS ---
- ER Visit Summary Date of Service: 01/05/20 Chief Complaint: Right hand and wrist pain History of Present Illness: The patient is a 54 M who presents with right hand and wrist pain that has been constant for the past 9 days. Patient states he had carpal tunnel surgery done by Dr. Dorsey at that time. Patient states he has been taking oxycodone at home with some improvement of his pain. Patient states he is out of this. Patient states that the pain is aching but sharp at times. Patient still admits to some tingling in his ring finger. Patient states the tingling in his middle and small fingers has improved since the surgery. Patient denies any weakness. Physical Examination: Vital signs are stable. Patient is afebrile. Patient is in no acute distress. Oral mucosa is pink and moist. Skin is warm and dry. The incision is healing well. There is no erythema or signs of infection. There is some mild tenderness. There is no discharge or drainage. There is no abscess formation. Capillary refill is less than 2 seconds in all digits. Sensation was diminished to light touch in the third fourth and fifth fingers which is not new. Radial pulses are equal bilaterally. Emergency Department Course and Treatment: Patient was given a dose of oxycodone here. The wrist was rewrapped. Patient was feeling better on reevaluation. Patient was instructed to follow-up with his orthopedic surgeon as scheduled. Patient was instructed to ice and elevate the right wrist. Patient was instructed to return if worse in any way. Patient understood and was agreeable with the plan. All questions were answered. Disposition: Discharge home Impression: Postoperative pain This note was generated with [employer] dictation software. It may contain incorrect words, spelling, and punctuation that were not noted in review of the chart prior to signing ED Disposition - Plan for ED Patient: Disposition: Home or Assisted Living Diagnosis: Postoperative pain of extremity Instructions: Managing Post-Op Pain at Home: Non-Medication Relief, Carpal Tunnel Release Surgery Referrals: Kady Aguiar MD [Primary Care Provider] - Maci Dorsey DO [STAFF PHYSICIAN] - Keep Bruna appointment
[2020-01-05] MEDS: oxyCODONE 5 MG Tablet PO (20:47)
== END 2020-01-05 20:49 | disposition home or self-care (01) ==
LOC: ED 20:28
PROVIDERS: Emergency Provider Emergency Medicine; PCP Family Medicine
DX: G89.18 Other acute postprocedural pain (principal); M79.641 Pain in right hand; R20.2 Paresthesia of skin; M25.531 Pain in right wrist
CPT/HCPCS: 99283

== ENCOUNTER 2020-05-12 07:07 | Emergency (ER) | payer MEDICAID, SELFPAY ==
[2020-01-09 13:07] VITALS: BMI 34.5
[2020-05-12 07:08] VITALS: BP 146/100; PULSE 117; RESP 16; TEMP 36.7; BMI 36.2
--- NOTE | 2020-05-12 07:27 | RAD_ITS ---
STUDY: X-RAY - LEFT KNEE REASON FOR EXAM: Male, 54 years old. left knee posterior pain, after walking for several hours TECHNIQUE: 4 view(s) of the knee. COMPARISON: None. FINDINGS: Normal visualized distal femur. Normal visualized proximal tibia and fibula. Normal proximal tibiofibular articulation. Normal medial femorotibial compartment. Normal lateral femorotibial compartment. Normal patellofemoral articulation. Possible mild effusion. The soft tissue structures are unremarkable. RAD/Knee 4 or More Views IMPRESSION: Possible small effusion of the knee. Electronically Signed: Scott Arevalo DO at 9:11 EDT Tel [phone], Service support ,
--- NOTE | 2020-05-12 07:27 | RAD_ITS ---
STUDY: X-RAY - LEFT ANKLE REASON FOR EXAM: Male, 54 years old. Pain, posterior after walking for several hours TECHNIQUE: 3 view(s) of the ankle. COMPARISON: None. FINDINGS: Normal visualized distal tibia and fibula. Normal medial and lateral malleoli. Normal tibiotalar articulation and ankle mortise. Normal visualized talus and calcaneus. The visualized subtalar, talonavicular, calcaneocuboid and tarsal articulations are normal. The soft tissue structures are unremarkable. RAD/Ankle min 3 Views IMPRESSION: Normal x-ray examination of the ankle. Electronically Signed: Scott Arevalo DO at 9:10 EDT Tel [phone], Service support ,
--- NOTE | 2020-05-12 07:28 | ED.VIS.GEN ---
History of Present Illness Chief Complaint: Lower Extremity Injury Informant: Patient Onset: Days Current Severity: Mild Maximum Severity: Mild Narrative: Patient complains of left knee and ankle pain and swelling for the last for 5 days, he reports this is a recurrent problem that occurs paroxysmally he has been evaluated for his his physicians for, he has no history of DVT arthritis gout vascular disorder infection the exact etiology of why he has joint discomfort is unclear he is scheduled to see his orthopedic surgeon Wednesday. He indicates he is using crutches now because of the pain, He indicates he has diffuse pain around the knee and some pain and swelling around the ankle, again he denies any trauma he does report that over the last few days prior to the above he was walking quite a bit flat services no inclines no stairs no direct trauma he has no other complaints of any kind no other joint issues or swelling just the left knee and ankle, no fever cough shortness of breath, no exposure to coronavirus In the past has been treated with nonspecific medications symptoms resolve and then they recur Past Medical History - Allergies and Home Meds Allergies/Adverse Reactions: Allergies No Known Allergies Allergy (Verified 05/12/20 07:10) Primary Care Physician: Kady Aguiar MD [Primary Care Provider] - Past Medical History: - - Nonspecific joint swelling intermittently Smoking Status: Never smoker Review of Systems General: Denies: Chills, Fever, Sweats Eyes: Denies: Visual changes - bilaterally, Diplopia ENT: Denies: Rhinorrhea, Sore throat Cardiovascular: Denies: Chest pain, Palpitations Respiratory: Denies: Dyspnea, Cough, Dyspnea on exertion Gastrointestinal: Denies: Abdominal pain, Nausea, Vomiting, Diarrhea, Melena, Hematochezia Genitourinary: Denies: Dysuria, Hematuria, Frequency Musculoskeletal: Reports: Extremity Pain. Denies: Back pain Skin: Denies: Rash, Wounds Neurological: Denies: Headache, Weakness, Numbness Physical Exam Vital Signs/Narrative: Vital Signs Temp Pulse Resp BP 05/12/20 07:08 98.0 F 117 H 16 146/100 H General: Well nourished, Well developed, No Acute Distress Head: Normocephalic, Atraumatic Eyes: Perrl, EOMI ENT: Moist mucous membranes, No rhinorrhea Neck: Supple, Nontender Cardiovascular: Regular rate, Regular rhythm, No murmurs Respiratory: No distress, CTA bilaterally, Chest nontender Abdomen: Soft, Nontender, Nondistended, Normal bowel sounds Back: Nontender, Normal Inspection Extremities: No edema, - - Left lower extremity exam shows full range of motion at the hip, flexion extension at the knee is intact but he has some discomfort, he has diffuse nonspecific pain to the knee the patella is in good position there may be a small knee effusion he is able to extend and flex, the calf is unremarkable, he has nonspecific discomfort to the left ankle, he is able dorsi and plantarflex the foot is unremarkable, pulses appear to be intact the foot is well-perfused good capillary refill and sensation the left left lower extremity right lower extremity are generally otherwise similar in exam no signs of obvious lower extremity swelling, no signs of obvious infection neurovascular compromise Skin: Normal color, No rash Neurological: Alert, Oriented x3, Cranial nerves II-XII grossly intact, Normal Strength, Normal Sensation Psychological: Normal affect, Normal Mood Diagnostic/Tx/Re-eval - Medical Decision Making The differential is extensive would certainly include trauma gout DVT Cormier's cyst etc. This has been a recurrent problem with nonspecific intermittent joint swelling he does not have a history of gout or arthritis Duplex scanning is not available at this time at this facility, x-rays were obtained Toradol for pain Patient's x-ray knee ankle generally unremarkable see those reports, I explained the above to him it was started on Naprosyn crutches Aircast he will follow-up with his orthopedic surgeon as scheduled as I explained the exact etiology of this intermittent joint swelling is unclear and he will require more definitive management by his outpatient providers he understands and return for change symptoms, please also note I did give him a prescription for a duplex scan of the left leg to obtain as an outpatient Home stable Final impression left knee and ankle pain etiology unclear ED Disposition - Plan for ED Patient: Diagnosis: Left knee and ankle pain Instructions: ED Knee Pain UKO, ED Sprain Ankle W X Ray Prescriptions: Naproxen [Naprosyn] 500 mg PO BID PRN #20 tab Prescription Printed Referrals: Kady Aguiar MD [Primary Care Provider] -
[2020-05-12] MEDS: Ketorolac 60 MG/2 ML Vial IM (07:35)
[2020-05-12 08:15] VITALS: RESP 18
== END 2020-05-12 10:38 | disposition home or self-care (01) ==
LOC: ED 07:57
PROVIDERS: Emergency Provider Emergency Medicine; PCP Family Medicine
DX: M25.562 Pain in left knee (principal); M25.572 Pain in left ankle and joints of left foot; M79.89 Other specified soft tissue disorders
CPT/HCPCS: 73564; 73610; 96372; 99282

== ENCOUNTER → 2020-05-14 11:10 | Outpatient (CLI) | payer MEDICAID, SELFPAY ==
[2020-05-14 10:17] VITALS: BMI 36.2
--- NOTE | 2020-05-14 11:11 | VDLE_ITS ---
Reason For Study: swelling Procedure LEFT Exam performed in department. GSV is normal. The exam was abbreviated due to the COVID 19 CFV is compressible, spontaneous, phasic, protocol. competent, and demonstrates normal The exam was diagnostic. augmentation. A preliminary report was called and/or faxed FV is compressible, spontaneous, phasic, to Dr. Dorsey's office. competent and demonstrates normal augmentation. POP V is compressible, spontaneous, phasic, competent and demonstrates normal augmentation. T/P Trunk is compressible. PTV is compressible. LT PerV is compressible. Interpretation Summary There is no evidence of left lower extremity deep vein thrombosis. Left great saphenous vein appears patent and compressible segmentally. Abbreviated Covid-19 protocol Ordering Physician: Maci Dorsey Performed By: Eliel Vallecillo RVT
[2020-05-14 13:46] LABS: Body Fluid Mononuclear WBC % 14.5 %; Body Fluid Polynuclear WBC % 85.5 %
[2020-05-14 14:30] LABS: Red Cell Count/Body Fluid 0.135 10^6/ul
[2020-05-14 14:31] LABS: Body Fluid Mononuclear WBC # 4.265 10^3/uL
[2020-05-14 14:44] LABS: Auto B Fluid Analyzer BKGD Ct COUNTS W/IN LIMITS (W/IN LIMITS)
[2020-05-14 14:45] LABS: Appearance/Body Fluid CLOUDY; Color/Body Fluid RED; Lymphocytes 5 %; Monocytes 10 %; Neutrophil (Segs) 85 %; Source- Body Fluid OTHER
[2020-05-14 14:48] LABS: Body Fluid QC Type(s) BF2Q,BF3Q
[2020-05-15 11:37] LABS: CRYSTALS, BODY FLUID MONOSODIUM URATE; Source- Body Fluid SYNOVIAL
[2020-05-15 12:34] LABS: Pathologist Review Reviewed
[2020-05-15 12:35] LABS: Pathologist Comment/Body Fluid Reviewed
== END ==
PROVIDERS: PCP Family Medicine; Referring Provider Orthopaedic Surgery; Visit Provider Orthopaedic Surgery
DX: M79.662 Pain in left lower leg (principal); M25.572 Pain in left ankle and joints of left foot; M25.472 Effusion, left ankle
CPT/HCPCS: 89050; 89060; 93971

== ENCOUNTER → 2020-05-17 | Outpatient (CLI) | payer MEDICAID, SELFPAY ==
[2020-05-14 10:17] VITALS: BMI 36.2
[2020-05-17 10:14] LABS: Lyme Ab Screen Interpretation REF LAB
[2020-05-17 12:24] LABS: Erythrocyte Sedimentation Rate 12 mm/hr (0-20)
[2020-05-17 12:26] LABS: Rheumatoid Factor < 10.0 IU/mL (<15)
[2020-05-17 12:27] LABS: Absolute Lymphocyte Count 3.47 X10^3/uL (0.83-4.51); Absolute Neutrophil Count 4.3 X10^3/uL (2.0-7.7); Basophil# 0.05 X10^3/uL; Basophil% 0.6 % (0-1); Eosinophils% 1.1 % (0-5); Hematocrit 45.1 % (40-54); Hemoglobin 14.7 g/dL (13.0-16.5); Lymphocyte # 3.47 X10^3/ul (4.0); Lymphocyte % 39.8 % (19-41); Mean Corp Hgb Conc 32.6 g/dL (32-36); Mean Corpuscular Hgb 30.2 pg (27.0-32.0); Mean Corpuscular Volume 92.6 fL (80-94); Mean Platelet Vol. 10.7 fl (6.2-12.0); Monocyte# 0.76 X10^3/uL; Monocyte% 8.7 % (0-10); NRBC Flagged by Analyzer 0 % (0-5); Neutrophil % 49.3 % (47-70); Platelet Count 334 K/mm3 (150-450); RBC Distribution Width CV 13.3 % (11.6-14.6); RBC Distribution Width SD 45.8 fl (35.1-43.9); Red Blood Count 4.87 M/mm3 (4.6-6.2); White Blood Count 8.7 K/mm3 (4.4-11.0)
[2020-05-20 14:40] LABS: ANTINUCLEAR ANTIBODIES DIRECT Negative (Negative)
[2020-05-24 00:37] LABS: CCP IgG Antibodies 7 units (0-19); HLA B27 Negative (.); Lyme Scn Total Ab w/Rflx <0.91 ISR (0.00-0.90)
== END | disposition home or self-care (01) ==
LOC: MTLAB 10:12
PROVIDERS: PCP Family Medicine; Referring Provider Orthopaedic Surgery; Visit Provider Orthopaedic Surgery
DX: M25.40 Effusion, unspecified joint (principal); M25.572 Pain in left ankle and joints of left foot
CPT/HCPCS: 36415; 81374; 85025; 85652; 86038; 86140; 86200; 86431; 86618

== ENCOUNTER → 2020-12-13 11:19 | Outpatient (CLI) | payer MEDICAID, SELFPAY ==
[2020-05-14 10:17] VITALS: BMI 36.2
[2020-12-13 13:03] LABS: Anion Gap 8 (5-15); BUN 16 mg/dL (7-18); BUN/Creat Ratio 12.8 RATIO (10-20); Chloride 105 mmol/L (98-107); Cholesterol 168 mg/dL (200); Creatinine, Serum 1.25 mg/dL (0.70-1.30); EST Glomerular Filtration Rate 63 mL/min (>60); Est Glom Filt Rate - Afr Amer 76 mL/min (>60); Glucose 76 mg/dL (74-106); High Density Lipoprotein 31 mg/dL; Potassium 3.4 mmol/L (3.5-5.1); Sodium Level 138 mmol/L (136-145); Triglycerides 124 mg/dL; Very Low Density Lipoprotein 25 mg/dL (5-40)
== END ==
PROVIDERS: PCP Family Medicine; Referring Provider Family Medicine; Visit Provider Family Medicine
DX: I10 Essential (primary) hypertension (principal)
CPT/HCPCS: 36415; 80048; 80061

== ENCOUNTER 2021-01-31 07:48 | Emergency (ER) | payer MEDICAID, SELFPAY ==
[2020-05-14 10:17] VITALS: BMI 36.2
[2021-01-31 07:48] VITALS: BP 153/10; PULSE 97; RESP 16; TEMP 36.1; O2SAT 99; BMI 37.5
--- NOTE | 2021-01-31 07:56 | ED.DCSUM_ITS ---
History of Present Illness Chief Complaint: Upper Extremity Injury Detail of Chief Complaint: Left third finger pain and swelling Informant: Patient Onset: Weeks Context: Gradual Onset Current Severity: Mild Maximum Severity: Moderate Narrative: Patient presents secondary to left third finger pain and swelling. He states symptoms been ongoing for the past 3 weeks. He denies any known injury. He is left-hand dominant. - Past Medical History (1) Gout Status: Chronic Past Medical History - Allergies and Home Meds Allergies/Adverse Reactions: Allergies No Known Allergies Allergy (Verified 01/31/21 07:48) Primary Care Physician: Kady Aguiar MD [Primary Care Provider] - Prior records reviewed: Yes Smoking Status: Never smoker Review of Systems General: Denies: Chills, Fever Eyes: Denies: Visual changes - bilaterally ENT: Denies: Bilateral ear pain Cardiovascular: Denies: Chest pain Respiratory: Denies: Dyspnea, Cough Gastrointestinal: Denies: Abdominal pain, Nausea, Vomiting, Diarrhea Musculoskeletal: Reports: Swelling, Extremity Pain Skin: Denies: Rash, Wounds Neurological: Denies: Headache, Weakness, Parasthesia Hematologic: Denies: Easy bruising, Easy bleeding Allergy: Denies: Uticaria Physical Exam Vital Signs/Narrative: Vital Signs Temp Pulse Resp BP Pulse Ox 01/31/21 07:48 97.0 F L 97 16 153/10 H 99 Inital Vital Signs reviewed: Yes General: Well nourished, Well developed Head: Normocephalic ENT: Moist mucous membranes Neck: Supple Cardiovascular: Regular rate, Regular rhythm Respiratory: No distress, CTA bilaterally Abdomen: Soft, Nontender Extremities: - - Mild tenderness diffusely throughout the left third finger. Very minimal edema. No erythema or warmth. No evidence of paronychia. No focal joint tenderness. Slight decreased range of motion with flexion secondary to pain and swelling. Skin: Normal color Neurological: Alert, Oriented x3 Psychological: Normal affect Diagnostic/Tx/Re-eval Impressions Hand X-Ray 01/31/21 07:56 IMPRESSION: Normal x-ray examination of the hand. Electronically Signed: Americo Lanier MD at 8:51 EST , Service support , 01/31/21 07:56 Hand Min 3 Views [RAD] Stat - Medical Decision Making Left hand x-rays obtained. Per my interpretation there is a lucency along the distal aspect of the proximal phalanx third finger. Radiology interpretation is normal. I spoke with the radiologist that he feels this is just a small bone cyst. This was reviewed with the patient. He will be placed in an AlumaFoam splint and started on anti-inflammatories. Patient has seen Dr. Dorsey in the past and will follow up with her if not improving. ED Disposition - Plan for ED Patient: Disposition: Home or Assisted Living Diagnosis: Finger sprain Instructions: ED Finger Sprain Prescriptions: Naproxen [Naprosyn] 500 mg PO BID PRN PRN #20 tab PRN Reason: Pain Score 4-10 Transmission Status: Pending to [facility] Referrals: Maci Dorsey DO [STAFF PHYSICIAN] - 10-14 Days if not better
--- NOTE | 2021-01-31 07:56 | RAD_ITS ---
STUDY: X-RAY - LEFT HAND REASON FOR EXAM: Male, 55 years old. Pain TECHNIQUE: 3 view(s) of the hand. COMPARISON: None. FINDINGS: Normal radiocarpal articulation. Normal distal radioulnar joint. Normal visualized carpal bones. Normal carpal articulations Normal carpometacarpal articulation of the thumb. Normal second through fifth carpometacarpal joints. Normal metacarpi. Normal metacarpophalangeal joint of the thumb. Normal interphalangeal joint of the thumb. Normal proximal and distal phalanges of the thumb. Normal metacarpophalangeal joints of the second through fifth fingers. Normal proximal and distal interphalangeal joints of the second through fifth fingers. Normal phalanges of the second through fifth fingers. The soft tissue structures are unremarkable. RAD/Hand Min 3 Views IMPRESSION: Normal x-ray examination of the hand. Electronically Signed: Americo Lanier MD at 8:51 EST , Service support ,
[2021-01-31] MEDS: Naproxen 500 MG Tablet PO (09:24)
[2021-01-31 09:25] VITALS: BP 144/92; PULSE 73; RESP 16; O2SAT 98
== END 2021-01-31 09:30 | disposition home or self-care (01) ==
PROVIDERS: Emergency Provider Emergency Medicine; PCP Family Medicine
DX: S63.613A Unspecified sprain of left middle finger, initial encounter (principal); X58.XXXA Exposure to other specified factors, initial encounter; Y93.9 Activity, unspecified; Y92.9 Unspecified place or not applicable; Y99.9 Unspecified external cause status
CPT/HCPCS: 73130; 99283

== ENCOUNTER → 2021-03-13 16:16 | Outpatient (CLI) | payer MEDICAID, SELFPAY ==
--- NOTE | 2021-03-13 16:17 | MRI_ITS ---
STUDY: MRI LEFT HAND WITH AND WITHOUT CONTRAST (ATTENTION THIRD FINGER) REASON FOR EXAM: Left third finger pain and swelling for months, no specific injury. TECHNIQUE: Standardized fat and water weighted pulse sequences were obtained in all 3 orthogonal planes before and after intravenous administration of 27 mL of Dotarem. COMPARISON: Radiographs 01/31/2021. FINDINGS: There is no bone edema of the phalanges of the second through fifth digits or visualized second through fifth metacarpal heads. There is mild flexor tenosynovitis of the third digit (inversion recovery axial images 15-17) with contrast enhancement of the flexor tenosynovitis (postcontrast T1 axial images 1-24). Normal extensor tendon of the third digit. Normal second through fifth metacarpophalangeal joints. There is a small subchondral cyst in the radial aspect of the third proximal phalangeal head (inversion recovery coronal image 12) measuring 0.3 cm in length. Otherwise, normal second through fifth proximal interphalangeal joints. There is arthrosis of the fourth distal interphalangeal joint with chondral thinning (T1 coronal image 11). Unremarkable second, third and fifth distal interphalangeal joints. There is no discrete soft tissue mass or cyst. MRI/Upper Ext No Joint W/WO Cont IMPRESSION: Mild flexor tenosynovitis of the third digit. Small subchondral cyst in the radial aspect of the third proximal phalangeal head. Electronically Signed: Graham Mercer MD at 8:39 EDT Tel , Service support ,
== END ==
PROVIDERS: PCP Family Medicine; Referring Provider Orthopaedic Surgery; Visit Provider Orthopaedic Surgery
DX: M25.449 Effusion, unspecified hand (principal); M85.60 Other cyst of bone, unspecified site
CPT/HCPCS: 73220; A9575

== ENCOUNTER 2021-04-08 19:16 | Emergency (ER) | payer MEDICAID, SELFPAY ==
[2021-04-08 19:26] VITALS: BP 151/93; PULSE 96; RESP 16; TEMP 35.9; O2SAT 98; BMI 33.9
[2021-04-08 19:30] VITALS: BP 151/93; PULSE 96; RESP 16; TEMP 35.9; O2SAT 98
--- NOTE | 2021-04-08 20:04 | EDS_ITS ---
HPI History of Present Illness Chief Complaint: Eye Problem Informant: patient Onset/Context/Timing Location: Right Eye Onset: Today Context: Sudden Onset Timing: Continuous Narrative Narrative: Patient is a 55-year-old male present with right eye pain. Patient was working underneath his old car when he felt something fall into his right eye. He was not sure if it was dust or rust. He immediately had pain. He tried to wash it out with no help so he came to the emergency room for further evaluation. Patient intermittently wears reading glasses but does not wear contacts. His eye doctor is through [facility]. No other complaints at this time. [facility] Medical History (Updated 04/08/21 @ 20:[address] Elvira Matias, DO) Cataract Home Medications naproxen 500 mg PO BID PRN PRN #20 tab 01/31/21 [Rx Last Taken Unknown] Allergy/AdvReac Type Severity Reaction Status Date / Time No Known Allergies Allergy Verified 01/31/21 07:48 Family History (Updated 11/18/17 @ 14:45 by Muna Crook) Mother Cancer Surgical History (Updated 11/18/17 @ 14:45 by Muna Crook) H/O eye surgery Social History (Updated 03/18/21 @ 15:46 by Prieto BECERRA, PA) Smoking Status: Never smoker ROS ROS ED Constitutional Constitutional ED: Denies chills, fever(s) or malaise Eyes Eyes: Reports other Details: Right eye pain ; Denies blurry vision or loss of vision ENT ENT ED: Denies rhinorrhea or sore throat Cardiovascular Cardiovascular: Denies chest pain or dizziness Respiratory/Chest Respiratory/Chest: Denies dyspnea Gastrointestinal Gastrointestinal: Denies nausea or vomiting Musculoskeletal Musculoskeletal: Denies arthralgias or myalgias Integumentary Denies rash or wounds Neurologic Neurologic: Denies focal weakness or headache(s) Psychiatric Psychiatric: Denies anxiety or behavioral changes EXAM Physical Exam Const Vital Signs: 04/08/21 19:26 04/08/21 19:30 Temperature 96.7 F L 96.7 F L Temperature Source Temporal Temporal Pulse Rate 96 96 Respiratory Rate 16 16 Blood Pressure 151/93 H 151/93 H Blood Pressure Mean 112 112 Pulse Ox 98 98 Oxygen Delivery Method Room Air Room Air Positive well nourished and well developed General Appearance ED: well developed HEENT atraumatic Nose: external nose normal Eyes Sclera: sclera normal Cornea: cornea normal Pupil: PERRL EOM: EOM abnormal Slit Lamp: slit lamp exam performed with fluorescein and conjunctiva/sclera foreign body (Spec of a foreign body with fluorescein uptake noted at the 6 o'clock position of the junction of the iris and sclera) Neck supple Resp normal respiratory effort Cardio regular rate and regular rhythm Extremity normal to inspection Neuro moves all extremities Sensorium / Orientation: alert Skin Lesions: no lesions Rashes: no rashes MDM MDM MDM Narrative Medical decision making narrative: Patient evaluated for foreign body sensation in his right eye. Patient does not fact have a foreign body in his right eye. It is removed with a cotton tipped applicator. Patient has complete resolution of symptoms with tetracaine and removal of foreign body. Erythromycin ointment is applied to the eye. Patient is instructed to use erythromycin ointment 3 times a day for the next 3 to 5 days. He is instructed to follow-up with his eye doctor. Negative Jerome sign on exam. Treatment and Re-Evaluation Comments:: Removal of foreign body to the right eye with cotton tipped applicator. Resolution of symptoms after tetracaine application. Discharged home. Discharge Plan Triage Chief Complaint: Eye Problem ED Provider: Elvira Matias Dx/Rx/DC Orders Clinical Impression: Foreign body in cornea, right eye, initial encounter Instructions: ED Corneal Foreign Body, Removed Prescriptions: No Action naproxen 500 MG tablet 500 mg PO BID PRN PRN (Reason: Pain Score 4-10) Qty: 20 RF: 0 Primary Care Provider: Kady Aguiar Referrals: Kady Aguiar MD [Primary Care Provider] - Mauricio Lyon MD [STAFF PHYSICIAN] - Activity Restrictions/Additional Instructions: Use erythromycin ointment that you received here today 3 times a day to your eye. Follow-up with your eye doctor. 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 Disposition Disposition: Home, self care Discharge Date/Time: 04/08/21 20:35
[2021-04-08] MEDS: Tetracaine 0.5% Ophthalmic Bottle OPHTHALMIC (20:27)
[2021-04-08] MEDS: Fluorescein 1 MG STRIP 1 STRIP OPHTHALMIC (20:27)
== END 2021-04-08 20:35 | disposition home or self-care (01) ==
LOC: ED 20:22
PROVIDERS: Emergency Provider Emergency Medicine; PCP Family Medicine
DX: T15.01XA Foreign body in cornea, right eye, initial encounter (principal); X58.XXXA Exposure to other specified factors, initial encounter
CPT/HCPCS: 99283

== ENCOUNTER 2021-05-20 23:27 | Emergency (ER) | payer MEDICAID, SELFPAY ==
[2021-05-20 23:28] VITALS: BP 158/94; PULSE 86; RESP 16; TEMP 36.5; O2SAT 96; BMI 37.5
--- NOTE | 2021-05-20 23:39 | EX.ED.DYSGE1 ---
HPI History of Present Illness Chief Complaint: Wound Check Informant: patient Narrative Narrative: 55-year-old male noticed a tender bump behind his left ear today. He is worried it may be a blood clot. He states he was trying to squeeze it but nothing was coming out. He denies any prior occurrences. No recent illnesses. [facility] Medical History Cataract Home Medications naproxen 500 mg PO BID PRN PRN #20 tab 01/31/21 [Rx Last Taken Unknown] sulfamethoxazole-trimethoprim 1 tab PO BID #14 tablet 05/20/21 [Rx Last Taken Unknown] Allergy/AdvReac Type Severity Reaction Status Date / Time No Known Allergies Allergy Verified 05/20/21 23:30 Family History (Updated 11/18/17 @ 14:45 by Muna Crook) Mother Cancer Surgical History H/O eye surgery Social History (Updated 05/20/21 @ 23:[address] Idris Capellan DO) Smoking Status: Never smoker substance use type: does not use ROS ROS ED Constitutional Constitutional ED: Denies chills or weight loss Eyes Eyes: Denies change in vision or diplopia ENT ENT ED: Reports other Details: See HPI ; Denies ear pain, rhinorrhea or sore throat Cardiovascular Cardiovascular: Denies chest pain, orthopnea, palpitations or racing heartbeat Respiratory/Chest Respiratory/Chest: Denies cough, dyspnea or orthopnea Gastrointestinal Gastrointestinal: Denies abdominal pain, diarrhea, nausea or vomiting Genitourinary Genitourinary ED: Denies dysuria, hematuria or urinary frequency Musculoskeletal Musculoskeletal: Denies arthralgias or myalgias Integumentary Denies abscess or rash Neurologic Neurologic: Denies headache(s) or weakness Psychiatric Psychiatric: Denies anxiety, depression, suicidal ideation or suicidal thoughts Endocrine Endocrinology: Denies polydipsia, polyphagia or polyuria Allergic/Immunologic Allergic/Immunologic ED: Denies mouth swelling, tongue swelling or urticaria EXAM Physical Exam Const Vital Signs: 05/20/21 23:28 Temperature 97.7 F L Temperature Source Temporal Pulse Rate 86 Respiratory Rate 16 Blood Pressure 158/94 H Blood Pressure Mean 115 Pulse Ox 96 Oxygen Delivery Method Room Air Positive well nourished and well developed General Appearance ED: well developed HEENT Reports normocephalic, head/scalp atraumatic and moist mucous membranes HEENT Narrative: Located just behind the left ear inferiorly is an early developing pustule. There is no significant erythema. It is approximately 4 mm round. The surface appears to have some mild excoriation. Is tender. Eyes PERRL and EOMs intact bilaterally Neck no lymphadenopathy, supple and no JVD Resp normal respiratory effort and clear to auscultation bilaterally Cardio regular rate, regular rhythm and no murmurs GI normal to inspection, nondistended, normoactive bowel sounds and non-tender Palpation: soft Back/Spine no CVA tenderness and normal ROM Extremity normal to inspection General Extremety ED: Negative for edema General Extremity: Negative for edema Neuro oriented x3 and CN's II-XII intact bilaterally Sensorium / Orientation: alert Motor Exam: strength 5/5 throughout Psych mental status grossly normal Mood & Affect: Negative for depressed or tearful Skin no rashes or lesions noted and no wounds MDM MDM MDM Narrative Medical decision making narrative: I do not believe there is anything I can drain out of this. I would advise him on warm compresses and place him on Bactrim. He was advised that this may progress where it does need to be drained at which point he should return to emergency. Patient notes understanding the plan. Discharge Plan Triage Chief Complaint: Wound Check ED Provider: Idris Capellan Dx/Rx/DC Orders Clinical Impression: Skin pustule Instructions: ED Abscess Antibiotic Treatment Only Prescriptions: New sulfamethoxazole-trimethoprim [sulfamethoxazole-trimethoprim] 1 TABLET tablet 1 tab PO BID Qty: 14 RF: 0 No Action naproxen 500 MG tablet 500 mg PO BID PRN PRN (Reason: Pain Score 4-10) Qty: 20 RF: 0 Primary Care Provider: Kady Aguiar Referrals: Kady Aguiar MD [Primary Care Provider] - 3-5 Days if not improving Activity Restrictions/Additional Instructions: As discussed use frequent warm compresses to the area. It may progress to where it needs to be drained. If this occurs please return to the emergency department Disposition Disposition: Home, Self Care
[2021-05-20] MEDS: Smz/Tmp Ds Tablet 1 TABLET PO (23:45)
== END 2021-05-21 00:01 | disposition home or self-care (01) ==
LOC: ED 23:56
PROVIDERS: Emergency Provider Emergency Medicine; PCP Family Medicine
DX: L08.9 Local infection of the skin and subcutaneous tissue, unspecified (principal)
CPT/HCPCS: 99283

== ENCOUNTER 2021-09-02 10:24 | Emergency (ER) | payer MEDICAID, SELFPAY ==
[2021-09-02 10:26] VITALS: BP 167/128; PULSE 78; RESP 14; TEMP 36.6; O2SAT 97; BMI 32.9
--- NOTE | 2021-09-02 10:30 | ED.RN ---
Pt. presents with lower lumbar pain x2 days. Worse with standing and attempting to get up and turning. Ambulated to room 02 with no difficulties. Denies any injury. Has not taken anything for pain today.
--- NOTE | 2021-09-02 11:08 | ED.VIS.BACK ---
HPI History of Present Illness Chief Complaint: Back Narrative Narrative: 56-year-old male presenting with lower back pain x2 days. He denies any traumatic injury. He is not sure why started hurting. It aches across the lower aspect of his back with the left being worse than the right. He denies any direct trauma. He denies lower extremity paresthesias. Patient has no loss of bladder or bowel control. No urinary retention. Denies fever or chills. He is ambulatory and was able to drive here. PFSH PFS Medical History Cataract Home Medications naproxen [Naprosyn] 500 mg PO BID #30 tab 09/02/21 [Rx Last Taken Unknown] tizanidine 4 mg PO TID PRN #15 tab 09/02/21 [Rx Last Taken Unknown] Allergy/AdvReac Type Severity Reaction Status Date / Time No Known Allergies Allergy Verified 09/02/21 10:25 Family History Mother Cancer Surgical History H/O eye surgery Social History Smoking Status: Never smoker substance use type: does not use ROS ROS ED Constitutional Constitutional ED: Denies chills or fever(s) Eyes Eyes: Denies blurry vision or diplopia ENT ENT ED: Denies rhinorrhea or sore throat Cardiovascular Cardiovascular: Denies chest pain or palpitations Respiratory/Chest Respiratory/Chest: Denies dyspnea or sputum Gastrointestinal Gastrointestinal: Denies abdominal pain, nausea or vomiting Genitourinary Genitourinary ED: Denies dysuria or hematuria Musculoskeletal Musculoskeletal: Reports back pain; Denies neck pain Integumentary Denies Abrasions or rash Neurologic Neurologic: Denies headache(s) or paresthesias EXAM Physical Exam Const Vital Signs: 09/02/21 10:26 Temperature 98 F Temperature Source Temporal Pulse Rate 78 Respiratory Rate 14 Blood Pressure 167/128 H Blood Pressure Mean 141 Pulse Ox 97 Oxygen Delivery Method Room Air Positive well nourished General Appearance ED: NAD HEENT Reports moist mucous membranes Negative for trauma Eyes PERRL and EOMs intact bilaterally Resp normal respiratory effort and no use of accessory muscles Back/Spine Back/Spine Narrative: Generalized tenderness across the lumbar paraspinal musculature bilaterally. With the right being greater than the left. No midline deformity or step-off. No bony tenderness. Neuro oriented x3 Sensorium / Orientation: alert Psych mental status grossly normal Skin no rashes or lesions noted MDM MDM MDM Narrative Medical decision making narrative: Patient is given Norflex, Toradol, prednisone. Patient will be given anti-inflammatories and muscle relaxers for home. He states on reevaluation he feels improved. He is counseled to ice, rest, stretch. Patient has no red flag signs or symptoms warrant any further lab work or imaging. Patient discharged home in stable condition. Impression: 1. Lumbar strain Discharge Plan Triage Chief Complaint: Back ED Provider: Rei German Dx/Rx/DC Orders Instructions: ED Back Spasm, No Trauma Prescriptions: New naproxen [Naprosyn] 500 mg tablet 500 mg PO BID Qty: 30 RF: 0 tizanidine 4 mg tablet 4 mg PO TID PRN (Reason: muscle spasticity) Qty: 15 RF: 0 Primary Care Provider: Kady Aguiar Referrals: Kady Aguiar MD [Primary Care Provider] - Disposition Disposition: Home, Self Care
[2021-09-02] MEDS: Orphenadrine 60 MG/2 ML Ampul IM (11:18)
[2021-09-02] MEDS: Ketorolac 15 MG/ML Vial IM (11:18)
[2021-09-02] MEDS: predniSONE 20 MG Tablet 60 MG PO (11:19)
[2021-09-02 11:54] VITALS: BP 158/90; PULSE 88; RESP 16; O2SAT 98
== END 2021-09-02 12:00 | disposition home or self-care (01) ==
LOC: ED 11:34
PROVIDERS: Emergency Provider Student in an Organized Health Care Education/Training Program; PCP Family Medicine
DX: S39.012A Strain of muscle, fascia and tendon of lower back, initial encounter (principal); X58.XXXA Exposure to other specified factors, initial encounter; Z79.1 Long term (current) use of non-steroidal anti-inflammatories (NSAID)
CPT/HCPCS: 96372; 99283

== ENCOUNTER 2021-09-08 11:06 | Emergency (ER) | payer MEDICAID, SELFPAY ==
[2021-09-08 11:08] VITALS: BP 157/114; PULSE 89; RESP 16; TEMP 36.6; O2SAT 98; BMI 33.7
--- NOTE | 2021-09-08 11:35 | EDS_ITS ---
HPI History of Present Illness Chief Complaint: Back Informant: patient Onset/Context/Timing Onset: Days Context: Gradual Onset Timing: Continuous Quality: Aching and Throbbing Location: Lumbar (Left lumbar) Current Severity: Moderate Maximum Severity: Moderate Narrative Narrative: Patient presents secondary to left lower back pain. Patient was seen on September 02 for low back pain across his lower back. He was given Norflex, Toradol, and prednisone here. He was discharged with Naprosyn and tizanidine. Patient states that the muscle relaxer was helping but he is now out of it. His left lower back is still very tight with the right side is improved. Pain does not radiate down his leg. There was no trauma or fall. [facility] Medical History Cataract Home Medications naproxen [Naprosyn] 500 mg PO BID #30 tab 09/02/21 [Rx Last Taken Unknown] tizanidine 4 mg PO TID PRN #15 tab 09/02/21 [Rx Last Taken Unknown] prednisone See Taper PO DAILY #63 tab 09/08/21 [Rx Last Taken Unknown] tizanidine 4 mg PO Q8H PRN #14 cap 09/08/21 [Rx Last Taken Unknown] Allergy/AdvReac Type Severity Reaction Status Date / Time No Known Allergies Allergy Verified 09/08/21 11:08 Family History Mother Cancer Surgical History H/O eye surgery Social History Smoking Status: Never smoker substance use type: does not use ROS ROS ED Constitutional Constitutional ED: Denies chills or fever(s) Eyes Eyes: Denies change in vision ENT ENT ED: Denies sore throat Cardiovascular Cardiovascular: Denies chest pain Respiratory/Chest Respiratory/Chest: Denies cough or dyspnea Gastrointestinal Gastrointestinal: Denies abdominal pain, diarrhea, nausea or vomiting Genitourinary Genitourinary ED: Denies dysuria Musculoskeletal Musculoskeletal: Reports back pain Integumentary Denies rash Neurologic Neurologic: Denies headache(s) or weakness Allergic/Immunologic Allergic/Immunologic ED: Denies urticaria EXAM Physical Exam Const Vital Signs: 09/08/21 11:08 Temperature 97.8 F Temperature Source Temporal Pulse Rate 89 Respiratory Rate 16 Blood Pressure 157/114 H Blood Pressure Mean 128 Pulse Ox 98 Oxygen Delivery Method Room Air Positive well nourished and well developed General Appearance ED: well developed HEENT Reports normocephalic and head/scalp atraumatic Eyes PERRL and EOMs intact bilaterally Neck supple Chest Wall inspection of chest normal and palpation of chest normal Resp normal respiratory effort and clear to auscultation bilaterally Cardio regular rate and regular rhythm GI normal to inspection, nondistended, normoactive bowel sounds Palpation: soft Back/Spine no CVA tenderness and normal to inspection Back/Spine Narrative: Reproducible tenderness in the mid left lumbar paraspinal muscles. No midline tenderness. No erythema. Extremity normal to inspection Neuro oriented x3 and no sensory deficits noted Sensorium / Orientation: alert Motor Exam: strength 5/5 throughout Psych mental status grossly normal Skin no rashes or lesions noted [facility] Treatment and Re-Evaluation Comments:: Patient will be treated with tizanidine and prednisone. He is encouraged to continue naproxen. He will follow-up with his orthopedic doctor and is also scheduled to see someone for his back pain at [facility]. Discharge Plan Triage Chief Complaint: Back ED Provider: Miriam Bonds Dx/Rx/DC Orders Clinical Impression: Back pain Instructions: ED Back Spasm, No Trauma Prescriptions: New prednisone 10 mg tablet See Taper mg PO DAILY Qty: 63 RF: 0 tizanidine 4 mg capsule 4 mg PO Q8H PRN (Reason: muscle spasticity) Qty: 14 RF: 0 No Action naproxen [Naprosyn] 500 mg tablet 500 mg PO BID Qty: 30 RF: 0 tizanidine 4 mg tablet 4 mg PO TID PRN (Reason: muscle spasticity) Qty: 15 RF: 0 Primary Care Provider: Kady Aguiar Referrals: Kady Aguiar MD [Primary Care Provider] - As Needed Disposition Disposition: Home, Self Care
[2021-09-08] MEDS: predniSONE 20 MG Tablet 60 MG PO (12:24)
[2021-09-08] MEDS: tiZANidine HCl 2 MG Tablet 4 MG PO (12:25)
== END 2021-09-08 12:29 | disposition home or self-care (01) ==
PROVIDERS: Emergency Provider Emergency Medicine; PCP Family Medicine
DX: M54.50 Low back pain, unspecified (principal); Z79.1 Long term (current) use of non-steroidal anti-inflammatories (NSAID); Z79.52 Long term (current) use of systemic steroids
CPT/HCPCS: 99283

== ENCOUNTER 2021-09-29 11:16 | Emergency (ER) | payer MEDICAID, SELFPAY ==
[2021-09-29 11:16] VITALS: BP 157/141; PULSE 122; RESP 18; TEMP 36.1; O2SAT 99; BMI 32.6
--- NOTE | 2021-09-29 11:20 | RAD_ITS ---
STUDY: X-RAY LEFT FOOT, FIRST TOE REASON FOR EXAM: Male, 56 years old. PAIN -- LEFT GREAT TOE TECHNIQUE: 3 view(s) of the toe were obtained. COMPARISON: None. FINDINGS: No acute fracture, dislocation or osseous destruction. Mild first interphalangeal joint space narrowing with small cyst/erosion. Moderate first metatarsophalangeal joint arthrosis. Nonspecific periarticular calcification at the lateral aspect of the first metatarsal phalangeal joint. Mild soft tissue swelling at the first digit predominating at the first metacarpophalangeal joint. RAD/Toe(s) Min 2 Views IMPRESSION: Left foot/first toe acutely intact Mild/moderate osteoarthritic features Mild soft tissue swelling with first MTP joint periarticular calcification Electronically Signed: Jorge Collins DO at 11:43 EDT Tel , Service support ,
--- NOTE | 2021-09-29 12:57 | EDS_ITS ---
HPI History of Present Illness Chief Complaint: Lower Extremity Injury Informant: patient Narrative Narrative: Patient stubbed his toe about 3 days ago. It still sore. Is really just at the base of the left great toe. No other injury. No swelling. No fevers chills. Walking on it or pressing makes it worse. Rest makes it better. [facility] Medical History Cataract Home Medications naproxen 500 mg PO BID #14 tab 09/29/21 [Rx Last Taken Unknown] Allergy/AdvReac Type Severity Reaction Status Date / Time No Known Allergies Allergy Verified 09/08/21 11:08 Family History Mother Cancer Surgical History H/O eye surgery Social History Smoking Status: Never smoker substance use type: does not use ROS ROS ED Constitutional Constitutional ED: Denies chills or fever(s) Musculoskeletal Musculoskeletal: Reports other Details: See history of present illness. ; Denies back pain, myalgias or neck pain Integumentary Denies abscess, Abrasions or rash Neurologic Neurologic: Denies paresthesias Allergic/Immunologic Allergic/Immunologic ED: Denies mouth swelling or urticaria EXAM Physical Exam Const Vital Signs: 09/29/21 11:16 Temperature 97 F L Temperature Source Temporal Pulse Rate 122 H Respiratory Rate 18 Blood Pressure 157/141 H Blood Pressure Mean 146 Pulse Ox 99 Oxygen Delivery Method Room Air Positive well nourished and well developed General Appearance ED: well developed and NAD HEENT normocephalic and atraumatic Resp normal respiratory effort Extremity Extremity Narrative: Patient has some mild tenderness at the base of the left great toe. There is no erythema or warmth. No lymphangitic streaking. There is no visible swelling. No tenderness more proximally up the foot heel ankle or leg. No deformity. Mild pain with motion but mostly with palpation. Neuro oriented x3 Sensorium / Orientation: alert Psych mental status grossly normal Skin no wounds Lesions: no lesions Rashes: no rashes Trauma: Negative for abrasion, laceration or puncture MDM MDM MDM Narrative Medical decision making narrative: Three-view x-ray of his left great toe looked at by me and read by radiology shows no sign of acute fracture. Patient will use ice rest elevation nonsteroidals for pain. No indication of gout or infection. Radiography Diagnostic Testing: Clinical Impression(s) from Imaging Studies Toe X-Ray 09/29/21 11:20 IMPRESSION: Left foot/first toe acutely intact Mild/moderate osteoarthritic features Mild soft tissue swelling with first MTP joint periarticular calcification Electronically Signed: Jorge Collins DO at 11:43 EDT Tel , Service support , Discharge Plan Triage Chief Complaint: Lower Extremity Injury ED Provider: Antonio Jarvis Dx/Rx/DC Orders Clinical Impression: Great toe pain Instructions: ED Toe Sprain Prescriptions: New naproxen 500 MG tablet 500 mg PO BID Qty: 14 RF: 0 Primary Care Provider: Kady Aguiar Referrals: Kady Aguiar MD [Primary Care Provider] - 1 Week Disposition Disposition: Home, Self Care
== END 2021-09-29 13:15 | disposition home or self-care (01) ==
PROVIDERS: Emergency Provider Emergency Medicine; PCP Family Medicine
DX: M79.675 Pain in left toe(s) (principal); M19.072 Primary osteoarthritis, left ankle and foot; Z79.1 Long term (current) use of non-steroidal anti-inflammatories (NSAID)
CPT/HCPCS: 73660; 99282

== ENCOUNTER 2021-11-18 10:02 | Emergency (ER) | payer MEDICAID, SELFPAY ==
[2021-11-18 10:03] VITALS: BP 174/85; PULSE 92; RESP 16; TEMP 36.4; O2SAT 100; BMI 34.9
--- NOTE | 2021-11-18 10:20 | RAD_ITS ---
STUDY: X-RAY - RIGHT ELBOW REASON FOR EXAM: Male, 56 years old. Injury/Pain TECHNIQUE: 3 view(s) of the elbow. COMPARISON: None. FINDINGS: Degenerative spur along the posterior aspect of the olecranon. Normal radiocapitellar and ulnotrochlear articulations. Soft tissue swelling overlying the dorsal aspect of the distal humerus. RAD/Elbow min 3 Views IMPRESSION: Degenerative spur formation along the posterior olecranon. Soft tissue swelling overlying the dorsal aspect of the distal humerus. Electronically Signed: Americo Lanier MD at 10:48 EST , Service support ,
--- NOTE | 2021-11-18 10:21 | EDS_ITS ---
HPI History of Present Illness HPI Narrative: Patient presents with right elbow pain that began today. Patient states he thinks he hit his elbow on something.. Patient states the pain is localized to the posterior aspect of his right elbow. Patient states it is worse with movement. Patient denies any paresthesias or weakness. Patient describes his pain is sharp. Patient states his pain is better with rest. Patient denies any other injuries. Chief Complaint: Upper Extremity Injury Informant: patient Occured/Mechanism Mechanism/Context: Yes direct blow Onset/Context/Timing Onset: Today Context: Sudden Onset Timing: Continuous Quality of Pain: Sharp Location: Right elbow Worsened by: Movement Relieved by: Nothing Associated Symptoms Associated Symptoms: Negative for Parasthesia, Weakness and Loss of Funtion PFSH PFSH Medical History Cataract Home Medications naproxen 500 mg PO BID PRN #20 tab 11/18/21 [Rx Last Taken Unknown] Allergy/AdvReac Type Severity Reaction Status Date / Time No Known Allergies Allergy Verified 11/18/21 10:05 Family History Mother Cancer Surgical History H/O eye surgery Social History Smoking Status: Never smoker substance use type: does not use ROS ROS ED Constitutional Constitutional ED: Denies chills or fever(s) Eyes Eyes: Denies blurry vision or change in vision ENT ENT ED: Denies rhinorrhea or sore throat Cardiovascular Cardiovascular: Denies chest pain or palpitations Respiratory/Chest Respiratory/Chest: Denies cough or dyspnea Gastrointestinal Gastrointestinal: Denies nausea or vomiting Genitourinary Genitourinary ED: Denies dysuria or hematuria Musculoskeletal Musculoskeletal: Denies back pain or neck pain Integumentary Denies abscess or rash Neurologic Neurologic: Denies headache(s) or weakness Allergic/Immunologic Allergic/Immunologic ED: Denies mouth swelling or urticaria EXAM Physical Exam Const Vital Signs: 11/18/21 10:03 Temperature 97.5 F L Temperature Source Temporal Pulse Rate 92 Respiratory Rate 16 Blood Pressure 174/85 H Blood Pressure Mean 114 Pulse Ox 100 Oxygen Delivery Method Room Air Positive well nourished and well developed General Appearance ED: well developed HEENT Reports moist mucous membranes Neck full ROM and supple Extremity Extremity Narrative: There is tenderness over the posterior aspect of the right elbow. There is no edema or ecchymosis. There is no bony crepitance or step- off. Range of motion was limited in all motions of the right elbow secondary to pain. There is a strong radial pulse noted. Sensation was intact to light touch in the radial, median, and ulnar areas. Strength is 5/5 in the radial, median, and ulnar areas. Neuro oriented x3, CN's II-XII intact bilaterally, moves all extremities, no focal motor deficits and no sensory deficits noted Sensorium / Orientation: alert Psych mental status grossly normal MDM MDM MDM Narrative Medical decision making narrative: X-rays of the right elbow were obtained. There are 3 views. On my interpretation, there is no acute fracture. There is no dislocation. There are some degenerative changes noted. There is some mild soft tissue swelling. Radiologist also interpreted the x-rays and agrees. Patient was advised of his findings. Patient was instructed use ice to the area. Patient was given a prescription for Naprosyn. Patient was instructed to follow-up with his primary care physician in 5 to 7 days. Patient understood and was agreeable with the plan. All questions were answered. Discharge Plan Triage Chief Complaint: Upper Extremity Injury ED Provider: Jorge Peters Dx/Rx/DC Orders Clinical Impression: Contusion of right elbow, initial encounter Instructions: ED Contusion, Elbow Prescriptions: Changed naproxen 500 MG tablet 500 mg PO BID PRN (Reason: pain) Qty: 20 RF: 0 Primary Care Provider: Kady Aguiar Referrals: Kady Aguiar MD [Primary Care Provider] - 5-7 Days Disposition Disposition: Home, Self Care
== END 2021-11-18 11:35 | disposition home or self-care (01) ==
PROVIDERS: Emergency Provider Emergency Medicine; PCP Family Medicine
DX: S50.01XA Contusion of right elbow, initial encounter (principal); W22.8XXA Striking against or struck by other objects, initial encounter; Y92.9 Unspecified place or not applicable; Y99.9 Unspecified external cause status
CPT/HCPCS: 73080; 99282

== ENCOUNTER 2021-12-22 09:00 | Outpatient (RCR) | payer MEDICAID, SELFPAY ==
--- NOTE | 2021-09-19 09:44 | HP.PTEVAL ---
Patient's Visit Information AMELIA WEST is a 56 year old M referred to Physical Therapy by Dr. Kady Aguiar MD with a diagnosis of Dr Aguiar. Date of Evaluation: 09/19/21 Physical Therapist: BENITO Mayer - Visit Plan Frequency: 2x /Week Duration: 6 Weeks Plan: Pt goes by Pablo. 2X/ week for 6 weeks for centralization of symptoms, Neutral spine core stability and postural exercises, LE strength to use his legs more with lifting as opposed to his back with HEP!!!! (pt wants HEP to continue beyond PT). HEP: prone press ups and ext over mat table - Subjective Pt reports that 3 weeks ago his back was really sore and he could not turn or move. He went to the ER and gave him some meds and was better but by the end of the week he could not walk and could not twist and went back to ER and got more meds and then saw his Dr and she said to come here. They gave muscle relaxor and naproxin. He has not taken the meds for awhile as his back has been feeling much better. Currently his symptoms since the meds.... it does not hurt but when he does not take the meds it is his LB (right and left side) and hard to twist and walk and move. He wants to strengthen his lowerback. He also complains of cramping in his hands... last week and half. He has no weakness or Numbness or Tingling in his legs. He is sleeping when his back does not hurt. He feels muscle spasms and other times if feels sharp. When it acts up it is hard to sit or stand. - Pain LBP Pain Intensity (Out of 10): 5 Pain Intensity Range: 10 - Objective Gait: walks with normal gait pattern. LE MMT: B hip flex 4/5, B knee ext 4+/5, B knee flex 4+/5, R hip abd 4-/5, L hip abd 4/5, pt is able to walk on heels and toes. Trunk AROM: flexion 90%, ext 25%, SB B 75%, Rot B 50%. Prone press up X 1... Pt had increase pain and tightness across his LOB. Prone Press up 2 X 15(due to weakness in his triceps).... The more the pt did, the better he felt and he felt looser and more ROM. Pt also did extension over the mat table X 10 which he thought also helped loosen him up because he could extend back father without bothering his triceps. - Balance/Special Test Scores Oswestry Low Back Score: 13 - Goals Goal 1:: I HEP Goal Time Frame: 4-6 Weeks Goal 2:: Increase B hip abd to 4+/5 B Goal Time Frame: 4-6 Weeks Goal 3:: Increase trunk AROM to 100% all planes pain free Goal Time Frame: 4-6 Weeks Goal 4:: Be able to decrease overall back pain to 1/10 with ADL's Goal Time Frame: 4-6 Weeks - Rehabilitation Potential Rehabilitation Potential: Good - Anticipated Interventions Patient/Client Instruction: Educate patient on: Condition, Plan of Care For the Purpose of:: To decrease pain, To increase ROM, To improve nutrient delivery to tissue, To improve muscle performance and motor function, To improve ability to perform ADL's, To increase tolerance to activity/condition/position, To improve performance and independence with ADL's, To improve ability of physical actions for home/community/work/leisure, To improve gait and locomotor functions, To improve health of tissue, To decrease soft tissue restriction, To increase flexibility/ROM Therapeutic Exercise to Include: Strength training, Postural training, Flexibilty training, Neuromotor development, Active ROM, Dynamic Lumbar Stabilization, Priyanka Exercises For the Purpose of:: To decrease pain, To increase ROM, To improve nutrient delivery to tissue, To improve muscle performance and motor function, To improve ability to perform ADL's, To increase tolerance to activity/condition/position, To improve performance and independence with ADL's, To decrease level of supervision to perform tasks, To improve ability of physical actions for home/community/work/leisure, To improve gait and locomotor functions, To improve health of tissue, To decrease soft tissue restriction, To increase flexibility/ROM For the Purpose of:: To decrease pain Thank you for the opportunity to evaluate your patient. For Medicare and Medicare HMO plans, please review the plan of care and approve it. It will need to be FAXED BACK to us at [phone] for Medicare purposes. For Medicare only, by signing this I certify the plan of care. Please let me know if there are questions or concerns regarding this plan of care. Physician Signature: Date:
--- NOTE | 2021-11-10 09:02 | HP.PTREVAL ---
Dr. Kady Aguiar MD, It has been my pleasure to treat AMELIA WEST over the last [address] Aguiar. Please see the progress note below for an update on the physical therapy plan of care! Subjective: Pt late for appt. Pt feels that in general he has been feeling better. Last week her almost went to the ER cause sometimes he feels it flares up for no real reason. On Average his pain is good but it does flare up at least once a week. He is always aware of his back. He is very shy with what he does with his back. Objective/Function: Trunk AROM: flexion 95%, Ext 75%, SB B 75%, Rot B 75%. LE MMT: B hip flex 4/5, B knee ext 4+/6, B knee flex 4/5, B hip abd Plan Plan: Pt goes by Pablo. 2X/ week for 6 weeks for centralization of symptoms, Neutral spine core stability and postural exercises, LE strength to use his legs more with lifting as opposed to his back with HEP!!!! (pt wants HEP to continue beyond PT) Balance/Gait/Functional tests - Balance/Special Test Scores Oswestry Low Back Score: 8 Goals Goal 1:: I HEP Goal Time Frame: 4-6 Weeks Goal Progress: Goal Met Goal 2:: Increase B hip abd to 4+/5 B Goal Time Frame: 4-6 Weeks Goal 3:: Increase trunk AROM to 100% all planes pain free Goal Time Frame: 4-6 Weeks Goal 4:: Be able to decrease overall back pain to 1/10 with ADL's Goal Time Frame: 4-6 Weeks Goal Progress: Progressing Anticipated Interventions Patient/Client Instruction: Educate patient on: Condition, Plan of Care For the Purpose of:: To decrease pain, To increase ROM, To improve nutrient delivery to tissue, To improve muscle performance and motor function, To improve ability to perform ADL's, To increase tolerance to activity/condition/position, To improve performance and independence with ADL's, To improve ability of physical actions for home/community/work/leisure, To improve gait and locomotor functions, To improve health of tissue, To decrease soft tissue restriction, To increase flexibility/ROM Therapeutic Exercise to Include: Strength training, Postural training, Flexibilty training, Neuromotor development, Active ROM, Dynamic Lumbar Stabilization, Priyanka Exercises For the Purpose of:: To decrease pain, To increase ROM, To improve nutrient delivery to tissue, To improve muscle performance and motor function, To improve ability to perform ADL's, To increase tolerance to activity/condition/position, To improve performance and independence with ADL's, To decrease level of supervision to perform tasks, To improve ability of physical actions for home/community/work/leisure, To improve gait and locomotor functions, To improve health of tissue, To decrease soft tissue restriction, To increase flexibility/ROM For the Purpose of:: To decrease pain Please do not hesitate to contact me at [phone] by phone or if you have questions or concerns regarding this new plan of care! Sincerely, Ana King MPT
--- NOTE | 2021-12-22 10:00 | HP.PTDCSUM ---
It has been my pleasure to treat AMELIA WEST referred by Dr. Kady Aguiar MD, with the diagnosis of Dr Aguiar for a total of 13 visit(s). Discharge Date: 12/22/21 Please see the following information for a summary of their discharge status. Subjective: He feels 100% better. The last time he had pain was 2-3 weeks ago. He does not work out anywhere. LBP Pain Intensity (Out of 10): 0 % Improvement: 100 Objective/Function: trunk AROM: flexion 90%, Ext 90%, SB B 100%, ROT B 100%. Pt is able to walk on heels and toes without issue. B hip flex MMT 4+/5 B. Pt moves without hesitation Goal 1:: I HEP Goal Progress: Goal Met Goal 2:: Increase B hip abd to 4+/5 B Goal Progress: Goal Met Goal 3:: Increase trunk AROM to 100% all planes pain free Goal Progress: Progressing Goal 4:: Be able to decrease overall back pain to 1/10 with ADL's Goal Progress: Goal Met Plan: DC PT to HEP Discharge Comments: DC PT to HEP If there are questions or concerns regarding this patient's physical therapy, please feel free to call me at [phone]. Thank you for the referral of this patient. Sincerely, Ana King, MPT Balance/Gait/Functional tests - Balance/Special Test Scores Oswestry Low Back Score: 0
== END 2021-12-22 19:00 | disposition home or self-care (01) ==
LOC: PT 09:00
PROVIDERS: PCP Family Medicine; Referring Provider Family Medicine; Visit Provider Family Medicine
DX: S39.012D Strain of muscle, fascia and tendon of lower back, subsequent encounter (principal); X58.XXXD Exposure to other specified factors, subsequent encounter
CPT/HCPCS: 97110; 97161; 97530

== ENCOUNTER 2022-02-09 13:41 | Emergency (ER) | payer MEDICAID, SELFPAY ==
[2022-02-09 13:42] VITALS: BP 141/99; PULSE 94; RESP 18; TEMP 36.6; O2SAT 97; BMI 37.5
--- NOTE | 2022-02-09 13:50 | NURSING ---
NO OLD EKGS
--- NOTE | 2022-02-09 14:00 | RAD_ITS ---
STUDY: X-RAY CHEST REASON FOR EXAM: Male, 56 years old. chest pain TECHNIQUE: AP COMPARISON: 08/19/2018 FINDINGS: Along the anterior right sixth rib margin projecting over the right lung base, there is a 1.1 x 1.3 cm nodule not evident on prior x-ray. There is no demonstrated pleural abnormality. Normal size heart. Normal mediastinum and romero. Normal visualized pulmonary arteries. Normal visualized aortic arch and descending thoracic aorta. Normal visualized thoracic spine. Normal visualized ribs, clavicles, and shoulders. There is no demonstrated abnormality of the visualized soft tissue structures of the upper abdomen. RAD/Chest 1 View (Portable) IMPRESSION: Possible new nodule in the right lung base versus overlying confluence of shadows/rib artifact (although not seen on prior study). Chest CT recommended. Electronically Signed: Vic Balderas MD ([place]) at 14:37 EDT ,
--- NOTE | 2022-02-09 14:00 | EKG12_ITS ---
Test Reason : CP Blood Pressure : / mmHG Vent. Rate : 086 BPM Atrial Rate : 086 BPM P-R Int : 138 ms QRS Dur : 092 ms QT Int : 338 ms P-R-T Axes : 070 059 052 degrees QTc Int : 404 ms Normal sinus rhythm Normal ECG Confirmed by KARLA CINTRON, JOSE JUAN ([id number]), news editor MELVIN WATERMAN ([id number]) on 02/12/2022 9:47:52 AM Referred By: WING/BAR Confirmed By:JOSE JUAN ACOSTA MD
[2022-02-09 14:11] LABS: Absolute Lymphocyte Count 2.88 X10^3/uL (0.83-4.51); Absolute Neutrophil Count 5.5 X10^3/uL (2.0-7.7); Basophil# 0.04 X10^3/uL; Basophil% 0.4 % (0-1); Eosinophils% 1.1 % (0-5); Hemoglobin 16.1 g/dL (13.0-16.5); Lymphocyte # 2.88 X10^3/ul (0.83-4.51); Lymphocyte % 31.4 % (19-41); Mean Corp Hgb Conc 33.5 g/dL (32-36); Mean Corpuscular Hgb 30.1 pg (27.0-32.0); Mean Corpuscular Volume 89.9 fL (80-94); Monocyte# 0.62 X10^3/uL; Monocyte% 6.8 % (0-10); NRBC Flagged by Analyzer 0 % (0-5); Platelet Count 296 K/mm3 (150-450); RBC Distribution Width CV 13.6 % (11.6-14.6); RBC Distribution Width SD 44.7 fl (35.1-43.9); Red Blood Count 5.34 M/mm3 (4.6-6.2); White Blood Count 9.2 K/mm3 (4.4-11.0)
[2022-02-09 14:20] LABS: International Normalized Ratio 0.9; Prothrombin Time (Protime)PT. 11.9 SECONDS (11.7-14.9)
[2022-02-09 14:32] LABS: Anion Gap 5 (5-15); BUN 17 mg/dL (7-18); BUN/Creat Ratio 15.5 RATIO (10-20); Chloride 111 mmol/L (98-107); EST Glomerular Filtration Rate 73 mL/min (>60); Est Glom Filt Rate - Afr Amer 88 mL/min (>60); Estimated Creatinine Clearance 87.49 ml/min; Glucose 107 mg/dL (74-106); Potassium 3.9 mmol/L (3.5-5.1); Sodium Level 140 mmol/L (136-145); Troponin-I HS 4 pg/mL (3.0-78.0)
--- NOTE | 2022-02-09 14:32 | EDS_ITS ---
HPI History of Present Illness Chief Complaint: Chest Pain Informant: patient Onset/Context/Timing Onset: Days (2 days) Context: Sudden Onset Timing: Waxes and wanes Current Severity: Mild Maximum Severity: Moderate Narrative Narrative: Patient presents with left lower chest pain has been ongoing for the last 2 days. It waxes and wanes but never resolves. It does seem to be worse with movement. He states he was lifting some metal a few days ago. He does report slight shortness of breath. No known history of cardiac disease. No history of DVT or PE. [facility] Medical History Cataract Home Medications NK 02/09/22 [History Last Taken Unknown] Allergy/AdvReac Type Severity Reaction Status Date / Time No Known Allergies Allergy Verified 02/09/22 13:45 Family History Mother Cancer Surgical History H/O eye surgery Social History Smoking Status: Never smoker substance use type: does not use ROS ROS ED Constitutional Constitutional ED: Denies chills or fever(s) Eyes Eyes: Denies change in vision ENT ENT ED: Denies sore throat Cardiovascular Cardiovascular: Reports chest pain Respiratory/Chest Respiratory/Chest: Reports dyspnea; Denies cough Gastrointestinal Gastrointestinal: Denies abdominal pain, nausea or vomiting Genitourinary Genitourinary ED: Denies dysuria Musculoskeletal Musculoskeletal: Denies back pain or neck pain Integumentary Denies rash Neurologic Neurologic: Denies headache(s), paresthesias or weakness Psychiatric Psychiatric: Denies anxiety or depression Allergic/Immunologic Allergic/Immunologic ED: Denies urticaria EXAM Physical Exam Const Vital Signs: 02/09/22 13:42 02/09/22 14:29 02/09/22 14:39 Temperature 97.9 F Temperature Source Temporal Pulse Rate 94 Respiratory Rate 18 Respiratory Effort Normal Non-Labored Blood Pressure 141/99 H Blood Pressure Mean 113 Pulse Ox 97 Oxygen Delivery Method Room Air Room Air 02/09/22 15:00 Temperature Temperature Source Pulse Rate 87 Respiratory Rate 12 Respiratory Effort Blood Pressure 174/103 H Blood Pressure Mean 126 Pulse Ox 99 Oxygen Delivery Method Room Air Positive well nourished and well developed General Appearance ED: well developed HEENT Reports moist mucous membranes Eyes PERRL and EOMs intact bilaterally Neck no lymphadenopathy and supple Chest Wall inspection of chest normal and palpation of chest normal Resp normal respiratory effort and clear to auscultation bilaterally Cardio regular rate and regular rhythm GI non-tender Palpation: soft Extremity normal to inspection General Extremety ED: Negative for edema or tenderness General Extremity: Negative for edema Neuro oriented x3 Sensorium / Orientation: alert Psych mental status grossly normal Skin no rashes or lesions noted MDM MDM MDM Narrative Medical decision making narrative: EKG, chest x-ray, lab work obtained. Lab Data Attestation: I reviewed the patient's lab results. Labs: Laboratory Results - last 24 hr 02/09/22 02/09/22 02/09/22 13:55 13:55 13:55 WBC 9.2 RBC 5.34 Hgb 16.1 Hct 48.0 MCV 89.9 MCH 30.1 MCHC 33.5 RDW Std Deviation 44.7 H RDW Coeff of May 13.6 Plt Count 296 MPV 10.0 Immature Gran % (Auto) 0.300 Neut % (Auto) 60.0 Lymph % (Auto) 31.4 [place] % (Auto) 6.8 Eos % (Auto) 1.1 Baso % (Auto) 0.4 Absolute Neuts (auto) 5.5 Absolute Lymphs (auto) 2.88 Nucleated RBC % 0 PT 11.9 INR 0.9 Sodium 140 Potassium 3.9 Chloride 111 H Carbon Dioxide 24.0 Anion Gap 5 BUN 17 Creatinine 1.10 Estim Creat Clear Calc 87.49 Est GFR (MDRD) Af Amer 88 Est GFR (MDRD) Non-Af 73 BUN/Creatinine Ratio 15.5 Glucose 107 H Calcium 9.0 Troponin I High Sens 4 Radiography Chest X-Ray - ED: 1 View, Read by ED Physician, Normal, Heart, Lungs and Mediast inum Diagnostic Testing: Clinical Impression(s) from Imaging Studies Chest X-Ray 02/09/22 14:00 IMPRESSION: Possible new nodule in the right lung base versus overlying confluence of shadows/rib artifact (although not seen on prior study). Chest CT recommended. Electronically Signed: Vic Balderas MD ([place]) at 14:37 EDT Reading Location ID and State: [address] [place] [address] , Service support , EKG Initial EKG: Attestation: I personally reviewed and interpreted this EKG as follows: Interpretation: Sinus Rhythm (Sinus 86 with no acute ischemia.) Treatment and Re-Evaluation Narrative: Patient's lab work reviewed. Lab work is unremarkable including a normal troponin at 4. This is with 2 days of ongoing symptoms. Chest x-ray reveals possible nodule in the right lung base versus overlying shadow. EKG unremarkable. On repeat evaluation patient resting comfortably. I do note that his blood pressure is elevated at this time to 174/103. Patient states he has been on blood pressure medication in the past but weaned himself off. I encouraged him to keep a record of this at home and follow-up with his PCP at next visit. Discharge Plan Triage Chief Complaint: Chest Pain ED Provider: Miriam Bonds Dx/Rx/DC Orders Clinical Impression: Atypical chest pain Instructions: ED Chest Pain, Noncardiac, ED Hypertension, To Be Confirmed Prescriptions: No Action NK RF: 0 Primary Care Provider: Kady Agiuar Referrals: Kady Aguiar MD [Primary Care Provider] - 1-2 Weeks Disposition Disposition: Home, Self Care
[2022-02-09 15:00] VITALS: BP 174/103; PULSE 87; RESP 12; O2SAT 99
[2022-02-09 16:15] VITALS: BP 176/105
== END 2022-02-09 16:16 | disposition home or self-care (01) ==
PROVIDERS: Emergency Provider Emergency Medicine; PCP Family Medicine; Visit Provider Emergency Medicine
DX: R07.89 Other chest pain (principal); R06.02 Shortness of breath
CPT/HCPCS: 71045; 80048; 84484; 85025; 85610; 93005; 99283; A4216

== ENCOUNTER 2022-02-23 13:24 | Emergency (ER) | payer MEDICAID, SELFPAY ==
[2022-02-23 13:25] VITALS: BP 164/103; PULSE 94; RESP 14; TEMP 36.2; O2SAT 95; BMI 36.2
--- NOTE | 2022-02-23 14:01 | EX.ED.VIS.UR ---
HPI HPI - URI History of Present Illness Chief Complaint: Sore Throat Detail of Chief Complaint: Anterior neck pain with voice change Informant: patient Onset/Context/Timing Onset: Yesterday Context: Sudden Onset Timing: Continuous Quality: Hoarse voice and anterior neck pain Location: Larynx Current Severity: Mild Maximum Severity: Moderate Worsened by: Swallowing, Eating Solids and Drinking Liquids Associated Symptoms Associated Symptoms: Positive for Nasal Congestion and Nonproductive cough; Negative for Headache, Sinus Pressure, Myalgias, Nausea, Vomiting, Diarrhea, Shortness of Breath, Chest Pain, Hemoptysis and Productive Cough Narrative Narrative: Patient is a 56-year-old male who presents with hoarse voice and throat pain. He localizes to the larynx. He denies fever. He does report rhinorrhea and congestion. He does endorse nonproductive cough. He denies fever or chills. He denies history rheumatic fever, heart murmur or mitral valve prolapse. He denies rash. He denies myalgias arthralgias. He denies any ill contacts. Prior similar symptoms: No Recent Illness/Hospitalization: No ROS ROS ED Constitutional Constitutional ED: Denies chills, fever(s), subjective, sweats or weight loss Eyes Eyes: Denies blurry vision, change in vision or diplopia ENT ENT ED: Reports rhinorrhea and sore throat; Denies ear pain Cardiovascular Cardiovascular: Denies chest pain, orthopnea, palpitations, paroxysmal nocturnal dyspnea or racing heartbeat Respiratory/Chest Respiratory/Chest: Reports cough; Denies dyspnea, dyspnea on exertion, orthopnea, paroxysmal nocturnal dyspnea or sputum Gastrointestinal Gastrointestinal: Denies abdominal pain, diarrhea, nausea or vomiting Musculoskeletal Musculoskeletal: Reports neck pain; Denies arthralgias, back pain or myalgias Integumentary Denies rash Neurologic Neurologic: Denies headache(s) PFSH PFSH Medical History Cataract Home Medications NK 02/09/22 [History Last Taken Unknown] Allergy/AdvReac Type Severity Reaction Status Date / Time No Known Allergies Allergy Verified 02/23/22 13:25 Family History Mother Cancer Surgical History H/O eye surgery Social History (Updated 02/23/22 @ 14:[address] Mc Reed MD) household members: other Smoking Status: Never smoker substance use type: does not use EXAM Physical Exam Const Vital Signs: 02/23/22 13:25 Temperature 97.2 F L Temperature Source Temporal Pulse Rate 94 Respiratory Rate 14 Blood Pressure 164/103 H Blood Pressure Mean 123 Pulse Ox 95 Oxygen Delivery Method Room Air Positive well nourished, well developed and obese General Appearance ED: well developed and NAD; Negative for cyanotic, diaphoretic or pallor Nutritional Appearance: obese HEENT Reports TM's clear and moist mucous membranes normocephalic and atraumatic; Negative for scalp tenderness Face and Sinus: Negative for sinus tenderness, maxillary instability or facial tenderness External Ear: external ears normal External Auditory Canal: EAC's normal Tympanic Membrane ED: Yes TM's clear Teeth and Gingiva: Negative for caries Throat: posterior oropharynx abnormal Positive for erythema; Negative for posterior oropharynx normal Eyes PERRL and EOMs intact bilaterally General Eye ED: Negative for pale conjunctiva or scleral icterus Neck no lymphadenopathy, supple, no meningeal signs and no JVD Neck Narrative: There is pain to palpation of the larynx and pain with movement. There is no inspiratory stridor. Is no carotid bruit. There is no anterior cervical lymphadenopathy. General: Negative for anterior neck swelling Resp normal respiratory effort and clear to auscultation bilaterally Cardio S1 normal heart sound, S2 normal heart sound and no murmurs Rate: regular rate Rhythm: regular rhythm Bruits: Negative for carotid bruit Neuro oriented x3 and CN's II-XII intact bilaterally Sensorium / Orientation: alert Psych mental status grossly normal Skin General Skin Exam: jaundice; Negative for pallor Lesions: no lesions Rashes: no rashes MDM MDM MDM Narrative Medical decision making narrative: Differential diagnosis is viral pharyngitis, laryngitis, epiglottitis, per pharyngeal abscess and retropharyngeal abscess. Soft tissue x-ray of the neck was obtained. Radiography Diagnostic Testin view x-ray of the neck, soft tissue, was independently interpreted by me as negative for epiglottitis, retropharyngeal abscess or parapharyngeal abscess. There is evidence of steeple sign consistent with laryngitis. Patient will receive a dose of Decadron. He will be discharged to home. The x-ray was independently interpreted by me at 1423 Discharge Plan Triage Chief Complaint: Sore Throat ED Provider: Mc Reed Dx/Rx/DC Orders Clinical Impression: Laryngitis, acute Instructions: ED Laryngitis Prescriptions: No Action NK RF: 0 Primary Care Provider: Kady Aguiar Referrals: Kady Aguiar MD [Primary Care Provider] - 3-5 Days if not improving Disposition Disposition: Home, Self Care
--- NOTE | 2022-02-23 14:15 | RAD_ITS ---
STUDY: X-RAY - SOFT TISSUE NECK REASON FOR EXAM: Male, 56 years old. Change in voice, pain with movement of larynx, kathleen TECHNIQUE: 2 view(s) of the neck were obtained. COMPARISON: Comparison is made with prior study of 08/10/2016. FINDINGS: There is soft tissue prominence of the posterior nasopharynx consistent with adenoidal hypertrophy. Normal epiglottis. Normal visualized subglottic tracheal air column. Normal prevertebral soft tissue structures. There are degenerative changes of the cervical spine with cervical spondylosis. Straightening of the normal cervical lordosis. The soft tissue structures are unremarkable. RAD/Neck for Soft Tissue IMPRESSION: Prominence of the adenoidal tissue. This is unchanged. Electronically Signed: Americo Lanier MD at 14:32 EDT ,
[2022-02-23 14:33] VITALS: O2SAT 98
[2022-02-23] MEDS: dexAMETHasone 2 MG TABLET 10 MG PO (14:53)
== END 2022-02-23 14:58 | disposition home or self-care (01) ==
LOC: ED 14:34
PROVIDERS: Emergency Provider Emergency Medicine; PCP Family Medicine; Visit Provider Emergency Medicine
DX: J04.0 Acute laryngitis (principal); R05.9 Cough, unspecified; E66.9 Obesity, unspecified
CPT/HCPCS: 70360; 99283

== ENCOUNTER 2022-03-14 03:54 | Emergency (ER) | payer MEDICAID, SELFPAY ==
[2022-03-14 03:55] VITALS: TEMP 36.9; BMI 37.5
--- NOTE | 2022-03-14 04:02 | ED.RN ---
PT STATES HE HASNT APPLIED ICE OR TAKEN IBUPROFEN. PATIENT EDUCATED ON APPLYING ICE TO INJURY WELL MEDICATION. PT STATES UNDERSTANDING
--- NOTE | 2022-03-14 04:08 | EDS_ITS ---
HPI History of Present Illness Chief Complaint: Lower Extremity Injury Detail of Chief Complaint: tender swollen area Informant: patient Onset/Context/Timing Onset: Days (2-3) Context: Gradual Onset Timing: Continuous Quality of Pain: - (sore) Location: right lower leg above lateral ankle Current Severity: Moderate Maximum Severity: Moderate Worsened by: palpation Relieved by: leaving alone Associated Symptoms Associated Symptoms: Negative for Parasthesia, Weakness and Loss of Funtion Narrative Narrative: Spontaneous and development of a tender swollen area right lower leg laterally just above the ankle. Does not remember injuring anything, no systemic symptoms or fevers. No discharge. No foreign bodies in this area. [facility] Medical History (Updated 03/14/22 @ 04:[address] Ranulfo Montoya MD) Cataract Gout Home Medications sulfamethoxazole-trimethoprim 1 tab PO BID #14 tablet 03/14/22 [Rx Last Taken Unknown] Allergy/AdvReac Type Severity Reaction Status Date / Time No Known Allergies Allergy Verified 02/23/22 13:25 Family History Mother Cancer Surgical History H/O eye surgery Social History household members: other Smoking Status: Never smoker substance use type: does not use ROS ROS ED Constitutional Constitutional ED: Denies chills or fever(s) Musculoskeletal Musculoskeletal: Reports extremity pain; Denies neck pain Integumentary Reports as per HPI and lesions; Denies Abrasions, rash or wounds Neurologic Neurologic: Denies paresthesias or weakness EXAM Physical Exam Const Vital Signs: 03/14/22 03:55 Temperature 98.5 F Temperature Source Temporal Positive well nourished and well developed General Appearance ED: well developed and NAD Neck full ROM and supple Back/Spine normal ROM and normal to inspection Extremity full ROM Extremity Narrative: Tender palpation subcutaneous nodule lateral right lower leg Neuro oriented x3, no focal motor deficits, no sensory deficits noted and gait normal Sensorium / Orientation: alert Psych mental status grossly normal and thought process normal Skin Skin Narrative: 1.5 cm in diameter tender subcutaneous swollen nodule lateral right lower leg, about 4 cm proximal to the lateral malleolus. Possibly slightly erythematous, limited evaluation due to dark skin color. No fluctuance. Possibly mild induration difficult to tell. No bullae petechiae or other lesions. Rashes: no rashes MDM MDM MDM Narrative Medical decision making narrative: Patient is spontaneous onset of a small tender subcutaneous nodule of the does not feel like it has anything to do with the nearby fibula. He wants to know what it is. I advised aspirating any possible contents with a needle as small localized infection makes the most sense. He was agreeable and we did this and nothing came out and as I attempted to discuss with him that there really are no diagnostics that I have here in the ER that I am able to obtain including blood work, radiography that will help us determine what this is. The differential may include a lipoma, sebaceous cyst, or other cancerous or noncancerous mass. I think the most likely etiology is an abscess, hence recommending the needle aspiration. He would not except the fact that I cannot give him an answer, and wondered why I would not do blood work, stating that he has insurance. I then discussed with him federal laws that prevent me from treating anyone differently than anyone else, including based on their insurance or whether they have it or not. He then started talking about the fact that he is black and that we are not treated right. I again discussed with the patient I am not treating him any different and I would anyone else who walked into my ER and asked for treatment. He then became very irritated and left prior to discharge, muttering something about race. Procedures Other Procedures Procedure(s): Aspiration abscess: After verbal consent from the patient, local prep with isopropanol, I locally anesthetized with 0.5 cc with plain 1% lidocaine over top of the apparent abscess, followed by aspirating with a 21- gauge needle in multiple directions, no discharge was able to be aspirated. There is minimal bleeding, tolerated well, no complications. Covered with bacitracin and a bandage. Discharge Plan Triage Chief Complaint: Lower Extremity Injury ED Provider: Ranulfo Montoya Dx/Rx/DC Orders Clinical Impression: Abscess of leg, right Instructions: ED Abscess Incision And Drainage Prescriptions: New sulfamethoxazole-trimethoprim [sulfamethoxazole-trimethoprim] 1 TABLET tablet 1 tab PO BID Qty: 14 RF: 0 Primary Care Provider: Kady Aguiar Referrals: Kady Aguiar MD [Primary Care Provider] - Disposition Disposition: Home, Self Care
--- NOTE | 2022-03-14 04:53 | ED.RN ---
PATIENT CALLED IN, AFTER HE LEFT, STATING HE WANTS TO FILE A COMPLIANT. LET PT KNOW I WOULD PLACE HIM ON HOLD AND GET THE NUMBER FOR HIM TO [facility] AT [phone],, BUT PATIENT ALREADY HUNG UP O THE PHONE
--- NOTE | 2022-03-14 05:00 | ED.RN ---
PATIENT THEN JUST CAME BACK INTO ER FOR THE NUMBER. GAVE IT TO THE PATIENT AND LET HIM KNOW HE CAN TALK TO ELIANA ABOUT THE COMPLAINT AND HE WILL KNOW WHICH DOCTOR IT WAS. ALSO, PATIENT RETURNED A FEW MINUTES LATER, ASKING FOR PAPERWORK GIVEN TO PATIENT.
== END 2022-03-14 04:44 | disposition home or self-care (01) ==
PROVIDERS: Emergency Provider Emergency Medicine; PCP Family Medicine; Visit Provider Emergency Medicine
DX: L02.415 Cutaneous abscess of right lower limb (principal)
CPT/HCPCS: 10060; 99282

== ENCOUNTER 2022-03-14 15:00 | Emergency (ER) | payer MEDICAID, SELFPAY ==
[2022-03-14 15:00] VITALS: BP 200/96; PULSE 76; RESP 20; TEMP 37; O2SAT 99; BMI 32.1
[2022-03-14 15:12] VITALS: BP 175/91; PULSE 73; RESP 18; TEMP 37.2; O2SAT 99
--- NOTE | 2022-03-14 15:38 | EX.ED.DYSGE1 ---
HPI History of Present Illness Chief Complaint: Abscess Informant: patient Onset/Context/Timing Onset: Days (3-4) Context: Gradual Onset Timing: Continuous Quality: Sharp Location: Right ankle area Worsened by: Palpation Relieved by: Nothing Narrative Narrative: Patient presents with pain and mild swelling to the lateral aspect of his right ankle that has been getting worse over the past 3 to 4 days. Patient describes the pain as sharp. Patient states pain is worse whenever he touches the area. Patient states nothing seems to help with the pain. Patient denies any paresthesias or weakness. Patient denies any trauma or injury. Patient denies any discharge or drainage. Patient denies any fevers or chills. [facility] Medical History Cataract Gout Home Medications sulfamethoxazole-trimethoprim 1 tab PO BID #14 tablet 03/14/22 [Rx Last Taken Unknown] Allergy/AdvReac Type Severity Reaction Status Date / Time No Known Allergies Allergy Verified 03/14/22 15:00 Family History Mother Cancer Surgical History H/O eye surgery Social History household members: other Smoking Status: Never smoker substance use type: does not use ROS ROS ED Constitutional Constitutional ED: Denies chills or fever(s) Eyes Eyes: Denies blurry vision or change in vision ENT ENT ED: Denies rhinorrhea or sore throat Cardiovascular Cardiovascular: Denies chest pain or palpitations Respiratory/Chest Respiratory/Chest: Denies cough or dyspnea Gastrointestinal Gastrointestinal: Denies nausea or vomiting Genitourinary Genitourinary ED: Denies dysuria or hematuria Musculoskeletal Musculoskeletal: Denies back pain or neck pain Integumentary Denies abscess or rash Neurologic Neurologic: Denies headache(s) or weakness Allergic/Immunologic Allergic/Immunologic ED: Denies mouth swelling or urticaria EXAM Physical Exam Const Vital Signs: 03/14/22 15:00 03/14/22 15:12 Temperature 98.6 F 98.9 F Temperature Source Temporal Oral Pulse Rate 76 73 Respiratory Rate 20 H 18 Blood Pressure 200/96 H 175/91 H Blood Pressure Mean 130 119 Pulse Ox 99 99 Oxygen Delivery Method Room Air Room Air Positive well nourished and well developed General Appearance ED: well developed and NAD Neck supple Neuro oriented x3, CN's II-XII intact bilaterally and no sensory deficits noted Sensorium / Orientation: alert Motor Exam: strength 5/5 throughout Psych mental status grossly normal Skin Skin Narrative: There is tenderness and edema over the lateral aspect of the right ankle approximately 4 cm above the lateral malleolus. There is no fluctuance. There is no discharge or drainage. It is mobile. It does not appear to be attached to the fibula bone. There is no real erythema. There is full range of motion of the right ankle and lower leg. MDM MDM MDM Narrative Medical decision making narrative: Since the swelling was soft and does not appear to be attached to the fibula bone, I advised the patient x-rays are not necessary at this time. It would not provide any diagnostic information. Patient then asked about lab work. Patient was advised that that would not help diagnose this either. Patient was advised that this could be a small developing abscess or a small lipoma. Patient was given a prescription for Bactrim. Patient was instructed to follow-up with his primary care physician in 5 to 7 days. Patient was advised that if it does not resolve with the course of Bactrim, it is unlikely to be an infectious etiology and is most likely a small lipoma that has developed. Patient understood and was agreeable with the plan. All questions were answered. Discharge Plan Triage Chief Complaint: Abscess ED Provider: Jorge Peters Dx/Rx/DC Orders Clinical Impression: Abscess of leg, right Instructions: ED Abscess Antibiotic Treatment Only Prescriptions: Continued sulfamethoxazole-trimethoprim 1 TABLET tablet 1 tab PO BID Qty: 14 RF: 0 Primary Care Provider: Kady Aguiar Referrals: Kady Aguiar MD [Primary Care Provider] - 5-7 Days Disposition Disposition: Home, Self Care
[2022-03-14 15:58] VITALS: BP 175/91; PULSE 73; RESP 18; TEMP 37.2; O2SAT 99
== END 2022-03-14 16:01 | disposition home or self-care (01) ==
PROVIDERS: Emergency Provider Emergency Medicine; PCP Family Medicine; Visit Provider Emergency Medicine
DX: L02.415 Cutaneous abscess of right lower limb (principal)
CPT/HCPCS: 99282

== ENCOUNTER → 2022-03-31 | Outpatient (CLI) | payer MEDICAID, SELFPAY ==
--- NOTE | 2022-03-31 14:04 | RAD_ITS ---
STUDY: X-RAY - RIGHT ANKLE REASON FOR EXAM: Male, 56 years old. PAIN RIGHT LOWER LEG TECHNIQUE: 3 view(s) of the ankle. COMPARISON: None. FINDINGS: Normal visualized distal tibia and fibula. Normal medial and lateral malleoli. Normal tibiotalar articulation and ankle mortise. Normal visualized talus and calcaneus. The visualized subtalar, talonavicular, calcaneocuboid and tarsal articulations are normal. The soft tissue structures are unremarkable. RAD/Ankle min 3 Views IMPRESSION: Normal x-ray examination of the ankle. Electronically Signed: Americo Lanier MD at 15:17 EDT ,
== END | disposition home or self-care (01) ==
PROVIDERS: PCP Family Medicine; Referring Provider Dermatology; Visit Provider Dermatology
DX: M79.661 Pain in right lower leg (principal)
CPT/HCPCS: 73610

== ENCOUNTER 2022-04-01 20:10 | Emergency (ER) | payer MEDICAID, SELFPAY ==
[2022-04-01 20:10] VITALS: BP 180/99; PULSE 69; RESP 17; TEMP 37.1; O2SAT 99; BMI 37.5
--- NOTE | 2022-04-01 20:21 | ED.VIS.BACK ---
HPI History of Present Illness Chief Complaint: Back Detail of Chief Complaint: Right lower back pain that started hours prior to presentation Informant: patient Onset/Context/Timing Onset: Hours Context: Sudden Onset Injury: - (Nothing specific) Timing: Continuous Quality: Aching Location: Lumbar Current Severity: Mild Maximum Severity: Moderate Worsened by: improves with Movement, Ambulation, Bending and Lifting Relieved by: Nothing Associated Symptoms Associated Symptoms: - (No saddle paresthesia or anesthesia. No foot drop. No buckling of the knee going up or down steps.); Negative for Numbness, Tingling, Radiation to Right Leg, Radiation to Left Leg, Fever, Abdominal Pain, Dysuria, Unable to Ambulate, Unable to Transfer, Urinary Retention, Urinary Incontinence, Constipation and Fecal Incontinence Narrative Narrative: Patient is a 56-year-old male who presents with right lower back pain. He has no other symptoms. He denies fever, chills night sweats. Denies any recent dental or surgical procedure. There is no history of trauma. He has not taken anything for the pain. Prior similar symptoms: Yes (Seen last week and several times prior for back pain) Recent Illness/Hospitalization: No PFSH PFSH Medical History Cataract Gout Home Medications naproxen 500 mg PO BID #14 tab 04/01/22 [Rx Last Taken Unknown] Allergy/AdvReac Type Severity Reaction Status Date / Time No Known Allergies Allergy Verified 04/01/22 20:12 Family History Mother Cancer Surgical History H/O eye surgery Social History household members: other Smoking Status: Never smoker substance use type: does not use ROS ROS ED Constitutional Constitutional ED: Denies chills, fever(s), subjective or sweats Eyes Eyes: Denies blurry vision, change in vision or diplopia Cardiovascular Cardiovascular: Denies chest pain or palpitations Respiratory/Chest Respiratory/Chest: Denies dyspnea, dyspnea on exertion or sputum Gastrointestinal Gastrointestinal: Denies abdominal pain, constipation, nausea or vomiting Genitourinary Genitourinary ED: Denies dysuria, hematuria or urinary frequency Musculoskeletal Musculoskeletal: Reports back pain; Denies arthralgias, myalgias or neck pain Integumentary Denies rash Neurologic Neurologic: Denies paresthesias or weakness Hematologic/Lymphatic Hematologic/Lymphatic: Denies easy bleeding or easy bruising EXAM Physical Exam Const Vital Signs: 04/01/22 20:10 Temperature 98.7 F Temperature Source Temporal Pulse Rate 69 Respiratory Rate 17 Blood Pressure 180/99 H Blood Pressure Mean 126 Pulse Ox 99 Oxygen Delivery Method Room Air Positive well nourished, well developed and obese General Appearance ED: well developed; Negative for NAD or pallor Nutritional Appearance: obese HEENT Reports moist mucous membranes HEENT Narrative: Ears normal. Nares patent. Negative for trauma or tenderness Eyes PERRL and EOMs intact bilaterally General Eye ED: Negative for pale conjunctiva or scleral icterus Neck no lymphadenopathy, supple and no JVD Resp normal respiratory effort Cardio regular rate, regular rhythm, S1 normal heart sound, S2 normal heart sound and no murmurs GI normal to inspection, nondistended, normoactive bowel sounds, soft to palpation, non-tender and non-distended Back/Spine normal to inspection; Negative for no thoracic nor lumbar tenderness Back/Spine Narrative: EHL is intact bilaterally. Gait was observed and normal. Able to walk on heels and toes. Able to perform a 1 legged squat. Normal sensation over L3, L4, L5 and S1 dermatome. General Back: Negative for CVA tenderness or scar(s) Cervical Spine: Negative for cervical spine tenderness and Negative for paracervical muscle tenderness Thoracic Spine / Upper Back: paraspinal muscle tenderness Lumbar Spine / Lower Back: straight leg raise negative bilaterally Extremity normal to inspection; Negative for no clubbing, cyanosis or edema General Extremety ED: Negative for edema or tenderness General Extremity: Negative for edema Neuro oriented x3 and no sensory deficits noted Sensorium / Orientation: alert Motor Exam: strength 5/5 throughout Deep Tendon Reflexes: Rt Patellar (L4): 2+, Lt Patellar (L4): 2+, Rt Ankle (S1): 2+ and Lt Ankle (S1): 2+ Deep Tendon Reflexes Back: Rt Patellar (L4): 2+, Lt Patellar (L4): 2+, Rt Ankle (S1): 2+ and Lt Ankle (S1): 2+ Plantar Reflex: Downgoing: bilateral (Negative clonus) Psych mental status grossly normal Skin no rashes or lesions noted and no wounds General Skin Exam: Negative for jaundice or pallor MDM MDM MDM Narrative Medical decision making narrative: Patient is informed he has muscular low back pain. He was treated with Lidoderm and Naprosyn since he has no contraindication. He was discharged home with prescription for Naprosyn. Discharge Plan Triage Chief Complaint: Back ED Provider: Mc Reed Dx/Rx/DC Orders Clinical Impression: Acute right-sided low back pain Prescriptions: New naproxen 500 MG tablet 500 mg PO BID Qty: 14 RF: 0 Primary Care Provider: Kady Aguiar Referrals: Kady Aguiar MD [Primary Care Provider] - 3-5 Days if not improving Disposition Disposition: Home, Self Care
[2022-04-01] MEDS: HYDROcodone Bitartrate/Apap 5/325 Tablet PO (20:29)
[2022-04-01] MEDS: Naproxen 250 MG Tablet 500 MG PO (20:29)
[2022-04-01] MEDS: Lidocaine 5% Patch 1 PATCH TOPICAL (20:30)
== END 2022-04-01 20:37 | disposition home or self-care (01) ==
PROVIDERS: Emergency Provider Emergency Medicine; PCP Family Medicine; Visit Provider Emergency Medicine
DX: M54.50 Low back pain, unspecified (principal); E66.9 Obesity, unspecified; M10.9 Gout, unspecified
CPT/HCPCS: 99283

== ENCOUNTER 2022-04-04 17:10 | Emergency (ER) | payer MEDICAID, SELFPAY ==
[2022-04-04 17:10] VITALS: BP 177/105; PULSE 88; RESP 16; TEMP 36.8; O2SAT 97; BMI 37.5
--- NOTE | 2022-04-04 17:49 | ED.VIS.BACK ---
HPI History of Present Illness Chief Complaint: Back Narrative Narrative: 56-year-old male presenting again for right-sided lower back pain. This is nontraumatic in nature. Patient reports that he was seen in the ER about a week ago for similar pain and this is actually improving. Is able to ambulate more. He states the pain is still just present and nagging. He states that he is taking the Naprosyn he was prescribed but is not doing any icing, heating, stretching. No loss of bladder or bowel control. No urinary retention or saddle anesthesia. PFSH PFSH Medical History Cataract Gout Home Medications naproxen 500 mg PO BID #14 tab 04/01/22 [Rx Last Taken Unknown] cyclobenzaprine 10 mg PO BID PRN #14 tab 04/04/22 [Rx Last Taken Unknown] Allergy/AdvReac Type Severity Reaction Status Date / Time No Known Allergies Allergy Verified 04/04/22 17:12 Family History Mother Cancer Surgical History H/O eye surgery Social History household members: other Smoking Status: Never smoker substance use type: does not use ROS ROS ED Constitutional Constitutional ED: Denies chills or fever(s) Eyes Eyes: Denies blurry vision or diplopia ENT ENT ED: Denies rhinorrhea Cardiovascular Cardiovascular: Denies chest pain or palpitations Respiratory/Chest Respiratory/Chest: Denies dyspnea or sputum Gastrointestinal Gastrointestinal: Denies abdominal pain, nausea or vomiting Genitourinary Genitourinary ED: Denies dysuria or hematuria Musculoskeletal Musculoskeletal: Reports back pain; Denies myalgias Integumentary Denies rash Neurologic Neurologic: Denies headache(s) or paresthesias Psychiatric Psychiatric: Denies anxiety or depression Endocrine Endocrinology: Denies polydipsia or polyuria EXAM Physical Exam Const Vital Signs: 04/04/22 17:10 Temperature 98.3 F Temperature Source Temporal Pulse Rate 88 Respiratory Rate 16 Blood Pressure 177/105 H Blood Pressure Mean 129 Pulse Ox 97 Oxygen Delivery Method Room Air Positive well nourished General Appearance ED: NAD; Negative for pallor HEENT Reports moist mucous membranes Negative for trauma Eyes PERRL and EOMs intact bilaterally Resp normal respiratory effort and clear to auscultation bilaterally Cardio regular rate and regular rhythm GI normal to inspection, nondistended, normoactive bowel sounds Back/Spine Back/Spine Narrative: Mild right-sided lumbar paraspinal muscular tenderness. No midline spinal deformity or step-off the lumbar spine. No gluteal tenderness. Lumbar Spine / Lower Back: Negative for straight leg raise positive right Extremity normal to inspection General Extremety ED: Negative for edema or tenderness General Extremity: Negative for edema Psych mental status grossly normal Skin no rashes or lesions noted General Skin Exam: Negative for jaundice or pallor MDM MDM MDM Narrative Medical decision making narrative: Patient with continuing back pain although this is improving. Is in the right lumbar paraspinal musculature. He reports that he is taking the Naprosyn but he is not icing the area, stretching the area, using any heat. Patient counseled he will need to do so in order to have some improvement. I do not believe he needs any imaging. He has no red flag signs or symptoms. He states he still has more Naprosyn at home. I offered him muscle relaxers which he states he will take. He is counseled at length on stretching exercises he can utilize. He is given return precautions. Impression: 1. Lumbar strain Discharge Plan Triage Chief Complaint: Back ED Provider: Rei German Dx/Rx/DC Orders Instructions: ED Back Sprain/Strain Prescriptions: New cyclobenzaprine 10 mg tablet 10 mg PO BID PRN (Reason: muscle spasm) Qty: 14 RF: 0 No Action naproxen 500 MG tablet 500 mg PO BID Qty: 14 RF: 0 Stand Alone Forms: ED Work / School Excuse Primary Care Provider: Kady Aguiar Referrals: Kady Aguiar MD [Primary Care Provider] - Disposition Disposition: Home, Self Care
== END 2022-04-04 18:04 | disposition home or self-care (01) ==
PROVIDERS: Emergency Provider Student in an Organized Health Care Education/Training Program; PCP Family Medicine; Visit Provider Student in an Organized Health Care Education/Training Program
DX: S39.012A Strain of muscle, fascia and tendon of lower back, initial encounter (principal); X58.XXXA Exposure to other specified factors, initial encounter; M10.9 Gout, unspecified
CPT/HCPCS: 99282

== ENCOUNTER → 2022-04-21 | Outpatient (CLI) | payer MEDICAID, SELFPAY ==
--- NOTE | 2022-04-21 15:15 | CT_ITS ---
STUDY: CT RIGHT ANKLE/FOOT REASON FOR EXAM: Male, 56 years old. Bone deformity of right lower leg RADIATION DOSAGE (If Supplied By Facility): CTDIvol = ( 15.35 ) mGy, DLP = ( 564.84 ) mGycm TECHNIQUE: Thin section transaxial imaging of the foot was obtained, with sagittal and coronal reconstructed images. The left lower extremity is included in [id number] on several sequences Individualized dose optimization techniques were used for this CT. 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 No additional benign lesions of either lower extremity seen. No aggressive process is present. No evidence of osteomyelitis. 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 Multiple corticated ossicles at the undersurface of the left medial malleolus and medial side of the talus are consistent with sequela of previous avulsive injuries. Mild dependent subcutaneous edema is present in both feet. The muscles of the lower extremities are normal. No fluid collections are present. Normal talus, calcaneus, and tarsal bones. Normal visualized tibiotalar, subtalar, talonavicular, calcaneocuboid, tarsal and tarsometatarsal articulations. Normal metatarsi. Normal metatarsophalangeal joint of the great toe. Normal tibial and fibular sesamoid bones. Normal interphalangeal joint of the great toe. Normal phalanges of the great toe. Normal second through fifth metatarsophalangeal joints. Normal interphalangeal joints and phalanges of the lesser toes. The soft tissue structures are unremarkable. CT/Extremity Lower WITH Contrast IMPRESSION: 1. 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 No additional benign lesions of either lower extremity seen. No aggressive process is present. Electronically Signed: Jorge Garcia MD at 15:55 EDT ,
== END | disposition home or self-care (01) ==
PROVIDERS: PCP Family Medicine; Referring Provider Family Medicine; Visit Provider Family Medicine
DX: M95.9 Acquired deformity of musculoskeletal system, unspecified (principal)
CPT/HCPCS: 73701; Q9967

== ENCOUNTER 2022-08-29 10:43 | Emergency (ER) | payer MEDICAID, SELFPAY ==
[2022-08-29 10:44] VITALS: BP 175/96; PULSE 70; RESP 18; TEMP 36.8; O2SAT 100; BMI 30.9
--- NOTE | 2022-08-29 11:25 | EDS_ITS ---
HPI History of Present Illness HPI Narrative: Patient presents with right elbow pain that began today. Patient states he woke up with it. Patient states it came on suddenly. Patient describes his pain as sharp and throbbing. Patient states it is worse with complete flexion and complete extension of the elbow. Patient states nothing seems to help with it. Patient denies any paresthesias or weakness. Patient denies any trauma or injury. Patient denies any fevers or chills. Chief Complaint: Upper Extremity Injury Informant: patient Onset/Context/Timing Onset: Today Context: Sudden Onset Timing: Continuous Quality of Pain: Sharp and Throbbing Location: Right elbow Worsened by: Extension and flexion Relieved by: Nothing Associated Symptoms Associated Symptoms: Negative for Parasthesia, Weakness or Loss of Funtion PFSH PFSH Medical History Cataract Gout Home Medications naproxen 500 mg tablet 500 mg PO BID #14 tabs 04/01/22 [Rx Last Taken Unknown] cyclobenzaprine 10 mg tablet 10 mg PO BID PRN muscle spasm #14 tabs 04/04/22 [Rx Last Taken Unknown] Allergy/AdvReac Type Severity Reaction Status Date / Time No Known Allergies Allergy Verified 08/29/22 10:44 Family History Mother Cancer Surgical History H/O eye surgery Social History household members: other Smoking Status: Never smoker substance use type: does not use ROS ROS ED Constitutional Constitutional ED: Denies chills or fever(s) Eyes Eyes: Denies blurry vision or change in vision ENT ENT ED: Denies rhinorrhea or sore throat Cardiovascular Cardiovascular: Denies chest pain or palpitations Respiratory/Chest Respiratory/Chest: Denies cough or dyspnea Gastrointestinal Gastrointestinal: Denies nausea or vomiting Genitourinary Genitourinary ED: Denies dysuria or hematuria Musculoskeletal Musculoskeletal: Denies back pain or neck pain Integumentary Denies abscess or rash Neurologic Neurologic: Denies headache(s) or weakness Allergic/Immunologic Allergic/Immunologic ED: Denies mouth swelling or urticaria EXAM Physical Exam Const Vital Signs: 08/29/22 10:44 Temperature 98.2 F Temperature Source Temporal Pulse Rate 70 Respiratory Rate 18 Blood Pressure 175/96 H Blood Pressure Mean 122 Pulse Ox 100 Oxygen Delivery Method Room Air Positive well nourished and well developed General Appearance ED: well developed and NAD HEENT Reports moist mucous membranes Neck full ROM and supple Extremity Extremity Narrative: There is tenderness over the posterior aspect of the right elbow. There is also mild tenderness over the lateral epicondyle. There is no edema or ecchymosis. There is no deformity noted. Range of motion was slightly limited in complete flexion and complete extension secondary to pain. Strength is 5/5 in the radial, median, and ulnar areas. Sensation was intact to light touch in the radial, median, and ulnar areas. Radial pulses are equal bilaterally. Neuro oriented x3, CN's II-XII intact bilaterally, moves all extremities, no focal motor deficits and no sensory deficits noted Sensorium / Orientation: alert Motor Exam: strength 5/5 throughout Psych mental status grossly normal MDM MDM MDM Narrative Medical decision making narrative: X-rays of the right elbow were obtained. There are 3 views. On my interpretation, there is no acute fracture. There is no dislocation. There is no soft tissue swelling. Radiologist also interpreted the x-rays and agrees. Patient was advised of his findings. Patient was advised that this is most likely a muscular strain or tendinitis. Patient was instructed to ice and gary vate the right elbow. Patient was instructed to take Tylenol or ibuprofen as needed for pain. Patient was instructed to follow-up with his primary care physician in 5 to 7 days. Patient understood and was agreeable with the plan. All questions were answered. Discharge Plan Triage Chief Complaint: Upper Extremity Injury ED Provider: Jorge Peters Dx/Rx/DC Orders Clinical Impression: Strain of right elbow, Right elbow tendinitis Instructions: ED Sprain, Elbow, ED Tendonitis Prescriptions: No Action naproxen 500 MG tablet 500 mg PO BID Qty: 14 0RF cyclobenzaprine 10 mg tablet 10 mg PO BID PRN (Reason: muscle spasm) Qty: 14 0RF Primary Care Provider: Kady Aguiar Referrals: Kady Aguiar MD [Primary Care Provider] - 5-7 Days Disposition Disposition: Home, Self Care
--- NOTE | 2022-08-29 11:28 | RAD_ITS ---
STUDY: X-RAY - RIGHT ELBOW REASON FOR EXAM: Male, 57 years old. NO INJURY. ELBOW PAIN THIS AM TECHNIQUE: 3 view(s) of the elbow. COMPARISON: Right elbow x-ray dated November 18, 2021 FINDINGS: Normal visualized humerus, radius and ulna. Normal radiocapitellar and ulnotrochlear articulations. The soft tissue structures are unremarkable. There is no demonstrated fracture. RAD/Elbow min 3 Views IMPRESSION: Normal x-ray examination of the elbow. Electronically Signed: Jorge Garcia MD at 11:59 EDT ,
[2022-08-29 12:52] VITALS: BP 129/88; PULSE 71; RESP 16; O2SAT 99
== END 2022-08-29 12:52 | disposition home or self-care (01) ==
PROVIDERS: Emergency Provider Emergency Medicine; PCP Family Medicine; Visit Provider Emergency Medicine
DX: M77.8 Other enthesopathies, not elsewhere classified (principal)
CPT/HCPCS: 73080; 99282

== ENCOUNTER 2022-09-15 09:12 | Emergency (ER) | payer MEDICAID, SELFPAY ==
[2022-09-15 09:14] VITALS: BP 210/115; PULSE 78; RESP 14; TEMP 36.1; O2SAT 98; BMI 31.7
--- NOTE | 2022-09-15 09:20 | RAD_ITS ---
STUDY: X-RAY - LEFT HAND REASON FOR EXAM: Male, 57 years old. Pain TECHNIQUE: 3 view(s) of the hand. COMPARISON: Comparison is made with prior study 01/31/2021. FINDINGS: Normal radiocarpal articulation. Normal distal radioulnar joint. Normal visualized carpal bones. Normal carpal articulations Normal carpometacarpal articulation of the thumb. Normal second through fifth carpometacarpal joints. Normal metacarpi. Normal metacarpophalangeal joint of the thumb. Normal interphalangeal joint of the thumb. Normal proximal and distal phalanges of the thumb. Normal metacarpophalangeal joints of the second through fifth fingers. Normal proximal and distal interphalangeal joints of the second through fifth fingers. Normal phalanges of the second through fifth fingers. The soft tissue structures are unremarkable. RAD/Hand Min 3 Views IMPRESSION: Normal x-ray examination of the hand. Electronically Signed: Americo Lanier MD at 9:44 EDT ,
--- NOTE | 2022-09-15 09:24 | EDS_ITS ---
HPI History of Present Illness Chief Complaint: Upper Extremity Injury Detail of Chief Complaint: Left hand pain Informant: patient Onset/Context/Timing Onset: Yesterday Narrative Narrative: Patient presents with left hand pain that started yesterday. He states it started in his middle finger yesterday and this morning his whole hand is painful. He denies any obvious injury. He is left-hand dominant. [facility] Medical History Cataract Gout Home Medications hydrocodone-acetaminophen 5-325mg 5mg-325mg 1 tab PO Q6H PRN pain 3 days #10 tabs 09/15/22 [Rx Last Taken Unknown] naproxen 500 mg tablet (Naprosyn) 500 mg PO BID PRN pain #20 tabs 09/15/22 [Rx Last Taken Unknown] prednisone 10 mg tablet See Taper PO DAILY #63 tabs 09/15/22 [Rx Last Taken Unknown] Allergy/AdvReac Type Severity Reaction Status Date / Time No Known Allergies Allergy Verified 09/15/22 09:14 Family History Mother Cancer Surgical History H/O eye surgery Social History household members: other Smoking Status: Never smoker substance use type: does not use ROS ROS ED Constitutional Constitutional ED: Denies chills or fever(s) Eyes Eyes: Denies change in vision or discharge from eye(s) ENT ENT ED: Denies discharge from eye(s), rhinorrhea or sore throat Cardiovascular Cardiovascular: Denies chest pain or palpitations Respiratory/Chest Respiratory/Chest: Denies cough or dyspnea Gastrointestinal Gastrointestinal: Denies abdominal pain, nausea or vomiting Genitourinary Genitourinary ED: Denies dysuria Musculoskeletal Musculoskeletal: Reports extremity pain; Denies back pain Integumentary Denies Abrasions or rash Neurologic Neurologic: Denies headache(s) or weakness Allergic/Immunologic Allergic/Immunologic ED: Denies lip swelling or urticaria EXAM Physical Exam Const Vital Signs: 09/15/22 09:14 Temperature 97 F L Temperature Source Temporal Pulse Rate 78 Respiratory Rate 14 Blood Pressure 210/115 H Blood Pressure Mean 146 Pulse Ox 98 Oxygen Delivery Method Room Air Positive well nourished and well developed General Appearance ED: well developed HEENT Reports normocephalic and head/scalp atraumatic Eyes PERRL and EOMs intact bilaterally Neck supple Chest Wall inspection of chest normal and palpation of chest normal Resp normal respiratory effort and clear to auscultation bilaterally Cardio regular rate and regular rhythm GI Palpation: soft Extremity Extremity Narrative: Diffuse tenderness palpation throughout the left hand, worse over the third MCP joint. Mild edema noted. Good cap refill and sensation distally. No tenderness at the wrist. Neuro oriented x3 and no sensory deficits noted Sensorium / Orientation: alert Psych mental status grossly normal Skin no rashes or lesions noted MDM MDM MDM Narrative Medical decision making narrative: Left hand x-rays obtained. Radiography Diagnostic Testing: Radiology Impression Hand X-Ray 09/15/22 09:20 IMPRESSION: Normal x-ray examination of the hand. Electronically Signed: Americo Lanier MD at 9:44 EDT , Treatment and Re-Evaluation Narrative: Left hand x-ray per my interpretation reveals no obvious bony abnormality. Radiology interpretation is reviewed. I am suspicious patient is having a gout flare as he has a history of gout and has focal tenderness at his single joint that is warm, swollen, tender. He will be treated with Naprosyn, prednisone, [place]. Return instructions provided. Of note we did discuss the patient's blood pressure. He states it is typically elevated here but is normal when he has it rechecked elsewhere. I encouraged him to closely follow this. Discharge Plan Triage Chief Complaint: Upper Extremity Injury ED Provider: Miriam Bonds Dx/Rx/DC Orders Clinical Impression: Gout, Hypertension Instructions: ED Gout, ED Hypertension, To Be Confirmed Prescriptions: New naproxen [Naprosyn] 500 mg tablet 500 mg PO BID PRN (Reason: pain) Qty: 20 0RF hydrocodone-acetaminophen 5-325 mg tablet 1 tab PO Q6H PRN (Reason: pain) 3 Days Qty: 10 0RF prednisone 10 mg tablet See Taper PO DAILY Qty: 63 0RF Taper: Prednisone Taper 60 mg WITH BREAKFAST for 3 Days and 0 Hour 50 mg WITH BREAKFAST for 3 Days and 0 Hour 40 mg WITH BREAKFAST for 3 Days and 0 Hour 30 mg WITH BREAKFAST for 3 Days and 0 Hour 20 mg WITH BREAKFAST for 3 Days and 0 Hour 10 mg WITH BREAKFAST for 3 Days and 0 Hour Primary Care Provider: Kady Aguiar Referrals: Kady Aguiar MD [Primary Care Provider] - 1 Week Disposition Disposition: Home, Self Care
[2022-09-15] MEDS: HYDROcodone Bitartrate/Apap 5/325 Tablet PO (10:24)
[2022-09-15] MEDS: Naproxen 500 MG Tablet PO (10:24)
[2022-09-15] MEDS: predniSONE 20 MG Tablet 60 MG PO (10:25)
[2022-09-15 10:26] VITALS: BP 174/132
== END 2022-09-15 10:27 | disposition home or self-care (01) ==
PROVIDERS: Emergency Provider Emergency Medicine; PCP Family Medicine; Visit Provider Emergency Medicine
DX: M10.9 Gout, unspecified (principal); I10 Essential (primary) hypertension
CPT/HCPCS: 73130; 99283

== ENCOUNTER 2022-10-13 11:19 | Emergency (ER) | payer MEDICAID, SELFPAY ==
[2022-10-13 11:20] VITALS: BP 179/110; PULSE 69; RESP 16; TEMP 36.6; O2SAT 100; BMI 33.7
--- NOTE | 2022-10-13 11:31 | EX.ED.GENINJ ---
HPI History of Present Illness Chief Complaint: Laceration Informant: patient Narrative Narrative: 57-year-old male presenting to the emergency room with left hand laceration. Patient was working on his expedition when the screwdriver broke and lacerated his left hand. He is left-hand dominant. Unknown last tetanus. No known allergies. [facility] Medical History Cataract Gout Home Medications hydrocodone-acetaminophen 5-325mg 5mg-325mg 1 tab PO Q6H PRN pain 3 days #10 tabs 09/15/22 [Rx Last Taken Unknown] naproxen 500 mg tablet (Naprosyn) 500 mg PO BID PRN pain #20 tabs 09/15/22 [Rx Last Taken Unknown] prednisone 10 mg tablet See Taper PO DAILY #63 tabs 09/15/22 [Rx Last Taken Unknown] Allergy/AdvReac Type Severity Reaction Status Date / Time No Known Allergies Allergy Verified 10/13/22 11:19 Family History Mother Cancer Surgical History H/O eye surgery Social History household members: other Smoking Status: Never smoker substance use type: does not use ROS ROS ED Constitutional Constitutional ED: Denies chills or weight loss Eyes Eyes: Denies change in vision or diplopia ENT ENT ED: Denies ear pain, rhinorrhea or sore throat Cardiovascular Cardiovascular: Denies chest pain, orthopnea, palpitations or racing heartbeat Respiratory/Chest Respiratory/Chest: Denies cough, dyspnea or orthopnea Gastrointestinal Gastrointestinal: Denies abdominal pain, diarrhea, nausea or vomiting Genitourinary Genitourinary ED: Denies dysuria, hematuria or urinary frequency Musculoskeletal Musculoskeletal: Denies arthralgias or myalgias Integumentary Reports other Details: See history of present illness ; Denies abscess or rash Neurologic Neurologic: Denies headache(s) or weakness Psychiatric Psychiatric: Denies anxiety, depression, suicidal ideation or suicidal thoughts Endocrine Endocrinology: Denies polydipsia, polyphagia or polyuria Allergic/Immunologic Allergic/Immunologic ED: Denies mouth swelling, tongue swelling or urticaria EXAM Physical Exam Const Vital Signs: 10/13/22 11:20 Temperature 97.8 F Temperature Source Temporal Pulse Rate 69 Respiratory Rate 16 Blood Pressure 179/110 H Blood Pressure Mean 133 Pulse Ox 100 Oxygen Delivery Method Room Air Positive well nourished and well developed General Appearance ED: well developed HEENT Reports normocephalic, head/scalp atraumatic and moist mucous membranes Eyes PERRL and EOMs intact bilaterally Neck no lymphadenopathy, supple and no JVD Resp normal respiratory effort and clear to auscultation bilaterally Cardio regular rate, regular rhythm and no murmurs GI normal to inspection, nondistended, normoactive bowel sounds and non-tender Palpation: soft Back/Spine no CVA tenderness and normal ROM Extremity Extremity Narrative: Laceration noted in the webspace between the left thumb and index finger. General Extremety ED: Negative for edema General Extremity: Negative for edema Neuro oriented x3 and CN's II-XII intact bilaterally Sensorium / Orientation: alert Motor Exam: strength 5/5 throughout Psych mental status grossly normal Mood & Affect: Negative for depressed or tearful Skin no rashes or lesions noted and no wounds MDM MDM MDM Narrative Medical decision making narrative: Wound was locally anesthetized using 1% lidocaine washed with Shur-Clens and explored. It was closed using 3-0 Ethilon simple interrupted sutures. Wound was dressed by this physician. Wound care discussed with patient who notes understanding. We will follow-up in 10 days for suture removal return if worsening or concerns Discharge Plan Triage Chief Complaint: Laceration ED Provider: Idris Capellan Dx/Rx/DC Orders Clinical Impression: Laceration of hand, left Instructions: ED Laceration Hand with ... Prescriptions: No Action naproxen [Naprosyn] 500 mg tablet 500 mg PO BID PRN (Reason: pain) Qty: 20 0RF hydrocodone-acetaminophen 5-325 mg tablet 1 tab PO Q6H PRN (Reason: pain) 3 Days Qty: 10 0RF prednisone 10 mg tablet See Taper PO DAILY Qty: 63 0RF Taper: Prednisone Taper 60 mg WITH BREAKFAST for 3 Days and 0 Hour 50 mg WITH BREAKFAST for 3 Days and 0 Hour 40 mg WITH BREAKFAST for 3 Days and 0 Hour 30 mg WITH BREAKFAST for 3 Days and 0 Hour 20 mg WITH BREAKFAST for 3 Days and 0 Hour 10 mg WITH BREAKFAST for 3 Days and 0 Hour Primary Care Provider: Kady Aguiar Referrals: Kady Aguiar MD [Primary Care Provider] - 10 Day for suture removal Disposition Disposition: Home, Self Care
[2022-10-13] MEDS: BACITRACIN 15 GM Tube 1 APPLIC TOPICAL (11:44)
[2022-10-13] MEDS: Diphth,Pertuss(Acell),Tet Vac 0.5 ML Vial IM (11:45)
[2022-10-13] MEDS: Lidocaine 1% (20 ml mdv) 20 ML Vial INFILT (11:45)
== END 2022-10-13 12:37 | disposition home or self-care (01) ==
PROVIDERS: Emergency Provider Emergency Medicine; PCP Family Medicine; Visit Provider Emergency Medicine
DX: S61.412A Laceration without foreign body of left hand, initial encounter (principal); Z23 Encounter for immunization; W27.0XXA Contact with workbench tool, initial encounter; M10.9 Gout, unspecified; Z79.52 Long term (current) use of systemic steroids
CPT/HCPCS: 12001; 90471; 90715; 99283

== ENCOUNTER 2022-10-14 01:18 | Emergency (ER) | payer MEDICAID, SELFPAY ==
[2022-10-14 01:19] VITALS: BP 172/97; PULSE 69; RESP 18; TEMP 36.5; O2SAT 100; BMI 32.0
--- NOTE | 2022-10-14 02:37 | EDS_ITS ---
HPI History of Present Illness Chief Complaint: Wound Check Narrative Narrative: Patient is a 57-year-old male who was seen earlier today secondary to a laceration to his left hand. He had sutures placed and states he was doing well but that later this evening he stretched his hand and thought the sutures gave loose. He states he noticed some bleeding from the site and with concern he may need to repeat sutures placed he comes in for evaluation. [facility] Medical History Cataract Gout Home Medications NK 10/14/22 [History Last Taken Unknown] Allergy/AdvReac Type Severity Reaction Status Date / Time No Known Allergies Allergy Verified 10/14/22 01:21 Family History Mother Cancer Surgical History H/O eye surgery Social History household members: other Smoking Status: Never smoker substance use type: does not use ROS ROS ED Constitutional Constitutional ED: Denies chills or fever(s) ENT ENT ED: Denies sore throat Cardiovascular Cardiovascular: Denies chest pain Respiratory/Chest Respiratory/Chest: Denies cough or dyspnea Gastrointestinal Gastrointestinal: Denies abdominal pain, diarrhea, nausea or vomiting Genitourinary Genitourinary ED: Denies dysuria Musculoskeletal Musculoskeletal: Reports other Details: Positive left hand pain Integumentary Reports other Details: Positive left hand laceration Neurologic Neurologic: Denies headache(s) or paresthesias Hematologic/Lymphatic Hematologic/Lymphatic: Denies easy bleeding or easy bruising EXAM Physical Exam Const Vital Signs: 10/14/22 01:19 Temperature 97.7 F L Temperature Source Temporal Pulse Rate 69 Respiratory Rate 18 Blood Pressure 172/97 H Blood Pressure Mean 122 Pulse Ox 100 Oxygen Delivery Method Room Air Positive well nourished and well developed General Appearance ED: well developed Eyes PERRL and EOMs intact bilaterally Neck supple Resp normal respiratory effort and clear to auscultation bilaterally Cardio regular rate and regular rhythm Extremity Extremity Narrative: Left upper extremity is neurovascularly intact; AIN/PIN are intact and normal. Patient has a linear laceration in the webspace between his first and second digit. The wound has been closed with 5 sutures but there is mild dehiscence of the wound with minimal ooze of blood. No secondary changes to suggest infection Neuro oriented x3 and CN's II-XII intact bilaterally Sensorium / Orientation: alert Motor Exam: strength 5/5 throughout Psych mental status grossly normal Skin no rashes or lesions noted Skin Narrative: Laceration to the left hand as documented above MDM MDM MDM Narrative Medical decision making narrative: Patient presented to the ER with mild dehiscence of his left hand laceration. As he is only approximately 24 hours out from the initial laceration closure I did feel it appropriate to add more sutures to the laceration. This was done as documented below. Following this as there is no signs of infection or neurovascular compromise he is otherwise safe for discharge Patient had the left hand laceration cleaned with chlorhexidine. It was anesthetized with 5 mL of 2% lidocaine with epinephrine local fashion. Then five 4 Ethilon sutures were placed into the wound in simple interrupted fashion. Following placement patient was able to extend and flex his hand without any dehiscence indicating the wound was held together good approximation. Patient tolerated procedure well without complication Discharge Plan Triage Chief Complaint: Wound Check ED Provider: Bry Baer Dx/Rx/DC Orders Clinical Impression: Laceration of hand, left Instructions: ED Laceration, Hand: All Closures Prescriptions: No Action NK Primary Care Provider: Kady Aguiar Referrals: Kady Aguiar MD [Primary Care Provider] - Activity Restrictions/Additional Instructions: Please follow-up with your family doctor or return to the ER in 7 to 10 days for suture removal Disposition Disposition: Home, Self Care Discharge Date/Time: 10/14/22 02:50
== END 2022-10-14 02:50 | disposition home or self-care (01) ==
PROVIDERS: Emergency Provider Emergency Medicine; PCP Family Medicine; Visit Provider Emergency Medicine
DX: S61.412D Laceration without foreign body of left hand, subsequent encounter (principal); X58.XXXD Exposure to other specified factors, subsequent encounter; T81.30XD Disruption of wound, unspecified, subsequent encounter
CPT/HCPCS: 12001; 99282

== ENCOUNTER 2022-10-23 13:30 | Emergency (ER) | payer MEDICAID, SELFPAY ==
[2022-10-23 13:32] VITALS: BP 133/76; PULSE 78; RESP 16; TEMP 36.6; O2SAT 100; BMI 33.7
== END 2022-10-23 13:50 | disposition left against medical advice (07) ==
LOC: ED 13:51
PROVIDERS: PCP Family Medicine
DX: Z48.02 Encounter for removal of sutures (principal); Z53.21 Procedure and treatment not carried out due to patient leaving prior to being seen by health care provider

== ENCOUNTER 2022-10-27 03:00 | Emergency (ER) | payer MEDICAID, SELFPAY ==
[2022-10-27 03:01] VITALS: BP 165/83; PULSE 77; RESP 18; TEMP 36.9; O2SAT 97; BMI 31.8
--- NOTE | 2022-10-27 03:16 | EDS_ITS ---
HPI History of Present Illness Chief Complaint: Suture Remv Informant: patient Onset/Context/Timing Onset: Weeks (2) Narrative Narrative: Gentleman presenting for wound reevaluation and suture removal, sutures were placed in his left hand 2 weeks ago. He returned the day after because he had minor dehiscence of the wound when the sutures loosened. He had more sutures placed. He states he has not had any issues. PFSH PFS Medical History Cataract Gout Home Medications NK 10/14/22 [History Last Taken Unknown] Allergy/AdvReac Type Severity Reaction Status Date / Time No Known Allergies Allergy Verified 10/27/22 03:04 Family History Mother Cancer Surgical History H/O eye surgery Social History household members: other Smoking Status: Never smoker substance use type: does not use ROS ROS ED Constitutional Constitutional ED: Denies chills or fever(s) Musculoskeletal Musculoskeletal: Denies extremity pain or neck pain Integumentary Reports wounds; Denies Abrasions or rash Neurologic Neurologic: Denies paresthesias or weakness EXAM Physical Exam Const Vital Signs: 10/27/22 03:01 Temperature 98.4 F Temperature Source Temporal Pulse Rate 77 Respiratory Rate 18 Blood Pressure 165/83 H Blood Pressure Mean 110 Pulse Ox 97 Positive well nourished and well developed General Appearance ED: well developed and NAD Neck full ROM and supple Back/Spine normal ROM and normal to inspection Neuro oriented x3, no focal motor deficits and no sensory deficits noted Sensorium / Orientation: alert Psych mental status grossly normal and thought process normal Skin Skin Narrative: Well-healing laceration left hand webspace between the thumb and the index finger, sutures intact, no discharge, no major tenderness, no significant erythema around the wound. Wound is still healing, there is opening in the superficial areas where there is scab and some early scar tissue formation. Rashes: no rashes MDM MDM MDM Narrative Medical decision making narrative: Patient had no complaints of infection, there appears to be possible minor superficial infection where one of the sutures was removed from. I do not think he needs systemic antibiotics, this can be managed topically. We did so here and give him advice on how to do this in the near future. He was advised to use caution and avoid putting lots of tension on this wound as it could open. Procedures Other Procedures Procedure(s): Suture removal by ED MD: Left hand laceration prepped with isopropanol, followed by removing #11 simple interrupted nylon sutures using scissors. No complications. Subsequently, there was a droplet or 2 of expressed purulent material from the center of the laceration. There is no dehiscence of the wound. Area was cleansed and dressed with bacitracin by nurs ing. Discharge Plan Triage Chief Complaint: Suture Remv ED Provider: Ranulfo Montoya Dx/Rx/DC Orders Clinical Impression: Encounter for removal of sutures Instructions: Sutr or Stap Removal Prescriptions: No Action NK Primary Care Provider: Kady Aguiar Referrals: Kady Aguiar MD [Primary Care Provider] - As Needed Activity Restrictions/Additional Instructions: Gauze dressing on the affected area with antibiotic ointment like Neosporin with each dressing change. Use caution, wound is still healing and could split open if enough stresses placed on it. Disposition Disposition: Home, Self Care
[2022-10-27 03:23] VITALS: BP 165/90; PULSE 74; RESP 16
== END 2022-10-27 03:24 | disposition home or self-care (01) ==
PROVIDERS: Emergency Provider Emergency Medicine; PCP Family Medicine; Visit Provider Emergency Medicine
DX: Z48.02 Encounter for removal of sutures (principal)
CPT/HCPCS: 99282

== ENCOUNTER 2022-11-22 16:02 | Emergency (ER) | payer MEDICAID, SELFPAY ==
[2022-11-22 16:04] VITALS: BP 175/106; PULSE 88; RESP 15; TEMP 37.1; O2SAT 99; BMI 34.3
--- NOTE | 2022-11-22 16:11 | ED.VIS.LOWEX ---
HPI History of Present Illness HPI Narrative: Atraumatic left great toe pain. History of gout. Chief Complaint: Lower Extremity Injury Informant: patient Occured/Mechanism Mechanism/Context: No injury and No blunt trauma Onset/Context/Timing Onset: Today Context: Gradual Onset Timing: Continuous Quality of Pain: Dull and Aching Current Severity: Moderate Maximum Severity: Moderate Associated Symptoms Associated Symptoms: Negative for Parasthesia, Weakness or Loss of Funtion Narrative Narrative: 57-year-old male history of gout. He has intermittent flareups to his knees ankles and great toes. Today started having pain in his left great toe. No fever or chills. No fall or trauma. He believes it is a gout flare. Prior similar symptoms: Yes Recent Illness/Hospitalization: No PFSH PFSH Medical History Cataract Gout Home Medications hydrocodone-acetaminophen 5-325mg 5mg-325mg 1 tab PO Q4H PRN pain 5 days #14 tabs 11/22/22 [Rx Last Taken Unknown] prednisone 20 mg tablet 40 mg PO DAILY 7 days #14 tabs 11/22/22 [Rx Last Taken Unknown] Allergy/AdvReac Type Severity Reaction Status Date / Time No Known Allergies Allergy Verified 11/22/22 16:04 Family History Mother Cancer Surgical History H/O eye surgery Social History household members: other Smoking Status: Never smoker substance use type: does not use ROS ROS ED ROS Narrative Denies recent illness. Review of Systems ROS Unobtainable: Denies due to encephalopathy Constitutional Constitutional ED: Denies chills or fever(s) Eyes Eyes: Denies blurry vision ENT ENT ED: Denies ear pain Cardiovascular Cardiovascular: Denies chest pain or palpitations Respiratory/Chest Respiratory/Chest: Denies cough Gastrointestinal Gastrointestinal: Denies abdominal pain Genitourinary Genitourinary ED: Denies dysuria or hematuria Musculoskeletal Musculoskeletal: Denies arthralgias or back pain Integumentary Denies abscess or Abrasions Neurologic Neurologic: Denies headache(s) Psychiatric Psychiatric: Denies anxiety Endocrine Endocrinology: Denies polydipsia Hematologic/Lymphatic Hematologic/Lymphatic: Denies easy bleeding Allergic/Immunologic Allergic/Immunologic ED: Denies mouth swelling or tongue swelling EXAM Physical Exam Narrative Exam Narrative: 7-year-old male no acute distress vital signs stable afebrile. H EENT exam unremarkable. Lungs are clear. Heart regular rhythm. No murmur. Abdomen soft nontender. Moving all 4 extremities. Left great toe tenderness at the MTP and interphalangeal joints. Minimal swelling. No warmth. Neurovascularly intact. Normal DP pulse. The rest of his foot is nontender. There is no streaks. Calf is nontender nonswollen. No inguinal lymphadenopathy. Left foot is neurovascular intact. Exam is consistent with gout. Const Vital Signs: 11/22/22 16:04 Temperature 98.8 F Temperature Source Temporal Pulse Rate 88 Respiratory Rate 15 Blood Pressure 175/106 H Blood Pressure Mean 129 Pulse Ox 99 Oxygen Delivery Method Room Air Positive well nourished and well developed; Negative for cachectic, contractures or unkempt General Appearance ED: well developed and NAD; Negative for unkempt, cachectic or contractures Nutritional Appearance: Negative for cachectic HEENT Reports moist mucous membranes normocephalic and atraumatic; Negative for trauma or tenderness Eyes PERRL General Eye ED: Negative for other Neck full ROM and supple Thyroid: Negative for tender Lymph Lymphatic: Negative for other Chest Wall inspection of chest normal and palpation of chest normal Chest: Negative for other Resp normal respiratory effort, no retractions and clear to auscultation bilaterally Effort and Inspection: Negative for pain with movement Auscultation: Negative for rales, rhonchi or wheezes Cardio regular rate, regular rhythm, S1 normal heart sound, S2 normal heart sound and no murmurs Rate: Negative for bradycardia or tachycardic Rhythm: Negative for abnormal rhythm Bruits: Negative for other GI non-tender, non-distended and no masses Inspection: Negative for abdominal distention Auscultation: normoactive bowel sounds Palpation: soft; Negative for tender or guarding Bladder / Kidney Exam: No other Back/Spine no CVA tenderness Extremity full ROM; Negative for normal to inspection Extremity Narrative: Tenderness left great toe at the MTP and interphalangeal joint. Minimal swelling. No lymphangitic streaking. General Extremety ED: Negative for cyanosis General Extremity: Negative for cyanosis Neuro oriented x3, CN's II-XII intact bilaterally and moves all extremities Sensorium / Orientation: alert, oriented to person, oriented to place and oriented to time; Negative for orientation impaired, confused, lethargic or stuporous Motor Exam: strength 5/5 throughout Psych mental status grossly normal Appearance: Negative for unkempt Speech: No other Mood & Affect: Negative for anxious Skin no wounds Lesions: no lesions Rashes: no rashes Trauma: Negative for abrasion or laceration MDM MDM MDM Narrative Medical decision making narrative: 57-year-old male history of gout with a gout flare of his left great toe. [place] x2 for pain and prednisone here. Based on prednisone 40 mg a day for 1 week. [place] for pain 14 no refill. Follow-up with his primary care physician Dr. Kady Aguiar. Discharge Plan Triage Chief Complaint: Lower Extremity Injury ED Provider: Dean Mendez Dx/Rx/DC Orders Clinical Impression: Gout attack Instructions: ED Gout Prescriptions: New hydrocodone-acetaminophen 5-325 mg tablet 1 tab PO Q4H PRN (Reason: pain) 5 Days Qty: 14 0RF prednisone 20 mg tablet 40 mg PO DAILY 7 Days Qty: 14 0RF Primary Care Provider: Kady Aguiar Referrals: Kady Aguiar MD [Primary Care Provider] - 1 Week if not improving Activity Restrictions/Additional Instructions: Motrin and [place] and for pain. Prednisone 40 mg a day for the next 7 days starting tomorrow. Follow-up with your doctor if not improving. Disposition Disposition: Home, Self Care
[2022-11-22] MEDS: HYDROcodone Bitartrate/Apap 5/325 Tablet PO (16:19)
[2022-11-22] MEDS: predniSONE 20 MG Tablet 60 MG PO (16:19)
== END 2022-11-22 16:31 | disposition home or self-care (01) ==
LOC: ED 16:29
PROVIDERS: Emergency Provider Emergency Medicine; PCP Family Medicine; Visit Provider Emergency Medicine
DX: M10.9 Gout, unspecified (principal)
CPT/HCPCS: 99283

== ENCOUNTER 2022-12-25 08:44 | Emergency (ER) | payer MEDICAID, SELFPAY ==
[2022-12-25 08:45] VITALS: BP 138/78; PULSE 78; RESP 16; TEMP 36.6; O2SAT 99; BMI 34.9
--- NOTE | 2022-12-25 09:01 | EDS_ITS ---
HPI History of Present Illness Chief Complaint: Lower Extremity Injury Detail of Chief Complaint: Left great toe pain Informant: patient Narrative Narrative: Patient presents to the emergency department complaint of left great toe pain and swelling that started yesterday. Patient denies any injury. He denies fever or recent illness. Patient has had this happen multiple times in the past and its very sporadic sometimes can go 6 months without an episode. He has been diagnosed with gout before. Patient does not take anything for gout currently. He denies alcohol use. Patient states sometimes he will have pain in different joints but more commonly in the left great toe. [facility] Medical History Cataract Gout Home Medications prednisone 20 mg tablet 40 mg PO DAILY 7 days #14 tabs 11/22/22 [Rx Last Taken Unknown] hydrocodone-acetaminophen 5-325mg 5mg-325mg 1 tab PO Q4H PRN PRN Pain 3 days #14 TABLETS 11/23/22 [Rx Last Taken Unknown] hydrocodone-acetaminophen 5-325mg 5mg-325mg 1 tab PO Q4H PRN PRN Pain 2 days #10 TABLETS 12/25/22 [Rx Last Taken Unknown] prednisone 20 mg tablet 20 mg PO BID #10 tabs 12/25/22 [Rx Last Taken Unknown] Allergy/AdvReac Type Severity Reaction Status Date / Time No Known Allergies Allergy Verified 12/25/22 08:45 Family History Mother Cancer Surgical History H/O eye surgery Social History household members: other Smoking Status: Never smoker substance use type: does not use ROS ROS ED Review of Systems ROS Unobtainable: other Constitutional Constitutional ED: Reports lethargy; Denies chills, fever(s), sweats or weight loss Eyes Eyes: Denies blurry vision, change in vision or diplopia ENT ENT ED: Denies rhinorrhea or sore throat Cardiovascular Cardiovascular: Denies chest pain, orthopnea or racing heartbeat Respiratory/Chest Respiratory/Chest: Denies cough, dyspnea, dyspnea on exertion, orthopnea or sputum Gastrointestinal Gastrointestinal: Denies abdominal pain, diarrhea, nausea or vomiting Genitourinary Genitourinary ED: Denies dysuria, hematuria or urinary frequency Musculoskeletal Musculoskeletal: Reports other Details: Left great toe pain and swelling ; Denies arthralgias, back pain, myalgias or neck pain Integumentary Denies abscess, Abrasions or rash Neurologic Neurologic: Denies headache(s) or weakness Psychiatric Psychiatric: Denies anxiety, depression or suicidal thoughts Endocrine Endocrinology: Denies polydipsia, polyphagia or polyuria Hematologic/Lymphatic Hematologic/Lymphatic: Denies easy bleeding, easy bruising or lymphadenopathy Allergic/Immunologic Allergic/Immunologic ED: Denies mouth swelling, tongue swelling or urticaria EXAM Physical Exam Const Vital Signs: 12/25/22 08:45 Temperature 97.8 F Temperature Source Temporal Pulse Rate 78 Respiratory Rate 16 Blood Pressure 138/78 H Blood Pressure Mean 98 Pulse Ox 99 Oxygen Delivery Method Room Air Positive well nourished and well developed General Appearance ED: well developed and NAD HEENT Reports TM's clear and moist mucous membranes normocephalic and atraumatic; Negative for trauma or tenderness Tympanic Membrane ED: Yes TM's clear Eyes PERRL and EOMs intact bilaterally General Eye ED: Negative for pale conjunctiva or scleral icterus Neck no lymphadenopathy, supple and no JVD General: Negative for tenderness Chest Wall inspection of chest normal and palpation of chest normal Chest: Negative for tenderness Resp normal respiratory effort and clear to auscultation bilaterally Effort and Inspection: Negative for respiratory distress or pain with movement Auscultation: Negative for rhonchi, wheezes or diminished lung sounds Cardio regular rate, regular rhythm, S1 normal heart sound, S2 normal heart sound and no murmurs Peripheral Pulses: pulses 2+ throughout GI normal to inspection, nondistended, normoactive bowel sounds, soft to palpation, non-tender, non-distended and no masses Back/Spine no CVA tenderness and no thoracic nor lumbar tenderness Extremity Extremity Narrative: Left foot-patient does have some mild soft tissue swelling and faint erythema over the first MTP joint of the great toe. Slightly tender to palpation. There is no ecchymosis or bruising or obvious deformity. Neurovascularly intact. General Extremety ED: Negative for edema General Extremity: Negative for edema Neuro oriented x3, CN's II-XII intact bilaterally, no sensory deficits noted and gait normal Sensorium / Orientation: awake, alert, oriented to person, oriented to place and oriented to time Motor Exam: strength 5/5 throughout and strength abnormal Psych mental status grossly normal Skin no rashes or lesions noted and no wounds MDM MDM MDM Narrative Medical decision making narrative: Patient with recurrent left great toe pain with prior diagnosis of gout. Patient has had no trauma therefore I do not feel any imaging is indicated. Patient will be started on prednisone and given [place] for pain. History and exam not consistent with cellulitis or infection. Patient advised to follow-up with his primary care physician within next 3 to 5 days. Patient to discuss with his PCP possible preventative medications for gout. Discharge Plan Triage Chief Complaint: Lower Extremity Injury ED Provider: Karel Crocker Dx/Rx/DC Orders Clinical Impression: Pain of left great toe, Acute gouty arthropathy Instructions: ED Gout Prescriptions: New prednisone 20 mg tablet 20 mg PO BID Qty: 10 0RF hydrocodone-acetaminophen [hydrocodone-acetaminophen] 5-325 mg tablet 1 tab PO Q4H PRN PRN (Reason: Pain) 2 Days Qty: 10 0RF No Action prednisone 20 mg tablet 40 mg PO DAILY 7 Days Qty: 14 0RF hydrocodone-acetaminophen [hydrocodone-acetaminophen] 1 TABLET tablet 1 tab PO Q4H PRN PRN (Reason: Pain) 3 Days Qty: 14 0RF Primary Care Provider: Kady Aguiar Referrals: Kady Aguiar MD [Primary Care Provider] - Disposition Disposition: Home, Self Care
[2022-12-25] MEDS: predniSONE 20 MG Tablet 40 MG PO (09:11)
== END 2022-12-25 09:30 | disposition home or self-care (01) ==
PROVIDERS: Emergency Provider Emergency Medicine; PCP Family Medicine; Visit Provider Emergency Medicine
DX: M79.675 Pain in left toe(s) (principal); M10.9 Gout, unspecified
CPT/HCPCS: 99283

== ENCOUNTER 2022-12-27 12:45 | Emergency (ER) | payer MEDICAID, SELFPAY ==
[2022-12-27 12:46] VITALS: BP 164/91; PULSE 90; RESP 16; TEMP 36.7; O2SAT 99; BMI 34.9
--- NOTE | 2022-12-27 14:13 | EX.ED.VIS.EY ---
HPI History of Present Illness Chief Complaint: Eye Problem Informant: patient Onset/Context/Timing Location: Left Eye Onset: Today Context: Sudden Onset Timing: Continuous Worsened by: Blinking Relieved by: Nothing Associated Symptoms Associated Symptoms - Eyes: Foreign body sensation and Redness; Negative for Burning, Crusting, Drainage, Eyelid swelling, Matting or Photophobia History of injury: Yes and Foreign body (Piece of metal fell into his eye while he was working on his car. Patient was not grinding at the time of the injury.) Narrative Narrative: Patient presents with foreign body sensation to his left eye that began approxi-1 to 2 hours prior to arrival. Patient states he was working on his car and a piece of metal fell into his eye. Patient was not grinding at the time of the injury. Patient states that it just fell into his eye. Patient states the pain has been getting progressively worse. Patient denies any visual changes. Patient does not wear glasses or contacts. PFS PFS Medical History Cataract Gout Home Medications prednisone 20 mg tablet 40 mg PO DAILY 7 days #14 tabs 11/22/22 [Rx Last Taken Unknown] hydrocodone-acetaminophen 5-325mg 5mg-325mg 1 tab PO Q4H PRN PRN Pain 3 days #14 TABLETS 11/23/22 [Rx Last Taken Unknown] hydrocodone-acetaminophen 5-325mg 5mg-325mg 1 tab PO Q4H PRN PRN Pain 2 days #10 TABLETS 12/25/22 [Rx Last Taken Unknown] prednisone 20 mg tablet 20 mg PO BID #10 tabs 12/25/22 [Rx Last Taken Unknown] Allergy/AdvReac Type Severity Reaction Status Date / Time No Known Allergies Allergy Verified 12/27/22 12:46 Family History Mother Cancer Surgical History H/O eye surgery Social History household members: other Smoking Status: Never smoker substance use type: does not use ROS ROS ED Constitutional Constitutional ED: Denies chills or fever(s) Eyes Eyes: Denies blurry vision or change in vision ENT ENT ED: Denies rhinorrhea or sore throat Cardiovascular Cardiovascular: Denies chest pain or palpitations Respiratory/Chest Respiratory/Chest: Denies cough or dyspnea Gastrointestinal Gastrointestinal: Denies nausea or vomiting Genitourinary Genitourinary ED: Denies dysuria or hematuria Musculoskeletal Musculoskeletal: Denies back pain or neck pain Integumentary Denies abscess or rash Neurologic Neurologic: Denies headache(s) or weakness Allergic/Immunologic Allergic/Immunologic ED: Denies mouth swelling or urticaria EXAM Physical Exam Const Vital Signs: 12/27/22 12:46 Temperature 98.0 F Temperature Source Temporal Pulse Rate 90 Respiratory Rate 16 Blood Pressure 164/91 H Blood Pressure Mean 115 Pulse Ox 99 Oxygen Delivery Method Room Air Positive well nourished and well developed General Appearance ED: well developed and NAD Eyes Eyes Narrative: Pupils are equal, round, and reactive to light bilaterally. Extraocular muscles are intact. Conjunctiva was injected on the left. There is no discharge or drainage. There is a small foreign body noted over the inferior lateral margin of the cornea on the left at about the 5 o'clock position. There are no corneal abrasions noted. There is no hyphema noted. Anterior chamber is clear. Patient was unable to tolerate funduscopic examination. Neck supple and no JVD Neuro oriented x3, CN's II-XII intact bilaterally, moves all extremities and no sensory deficits noted Sensorium / Orientation: alert Motor Exam: strength 5/5 throughout MDM MDM MDM Narrative Medical decision making narrative: Tetracaine and fluorescein dye was applied to the left eye. There are no corneal abrasions noted. The foreign body is noted. Under slit-lamp examination, the foreign body was removed with moistened Q-tip. Patient tolerated the procedure well. Patient was given erythromycin ophthalmic ointment. Patient was instructed to follow-up with his primary care physician this week as scheduled. Patient understood and was agreeable with the plan. All questions were answered. Discharge Plan Triage Chief Complaint: Eye Problem ED Provider: Jorge Peters Dx/Rx/DC Orders Clinical Impression: Foreign body of left eye Instructions: ED Corneal Foreign Body, Removed Prescriptions: No Action prednisone 20 mg tablet 40 mg PO DAILY 7 Days Qty: 14 0RF hydrocodone-acetaminophen [hydrocodone-acetaminophen] 1 TABLET tablet 1 tab PO Q4H PRN PRN (Reason: Pain) 3 Days Qty: 14 0RF prednisone 20 mg tablet 20 mg PO BID Qty: 10 0RF hydrocodone-acetaminophen [hydrocodone-acetaminophen] 5-325 mg tablet 1 tab PO Q4H PRN PRN (Reason: Pain) 2 Days Qty: 10 0RF Primary Care Provider: Kady Aguiar Referrals: Kady Aguiar MD [Primary Care Provider] - [facility] appointment Disposition Disposition: Home, Self Care Discharge Date/Time: 12/27/22 14:46
[2022-12-27] MEDS: Fluorescein 1 MG STRIP 1 STRIP OPHTHALMIC (14:14)
[2022-12-27] MEDS: Tetracaine 0.5% Ophthalmic Bottle 1 DRP OPHTHALMIC (14:14)
--- NOTE | 2022-12-27 14:46 | ED.RN ---
Pt. left without discharge paperwork or antibiotic ointment.
== END 2022-12-27 14:46 | disposition home or self-care (01) ==
PROVIDERS: Emergency Provider Emergency Medicine; PCP Family Medicine; Visit Provider Emergency Medicine
DX: T15.92XA Foreign body on external eye, part unspecified, left eye, initial encounter (principal); Y99.0 Civilian activity done for income or pay; M10.9 Gout, unspecified
CPT/HCPCS: 99282

== ENCOUNTER 2023-01-26 09:19 | Emergency (ER) | payer MEDICAID, SELFPAY ==
[2023-01-26 09:19] VITALS: BP 164/97; PULSE 70; RESP 18; TEMP 36.7; O2SAT 100; BMI 33.3
--- NOTE | 2023-01-26 11:04 | ED.VIS.LOWEX ---
HPI History of Present Illness Chief Complaint: Other, Pain/Inj Informant: patient Narrative Narrative: 1-2 days pain in the medial right ankle without injury. States this feels like gout and he wants to stay ahead of it before it gets worse like it has in the past. He has had gout in this joint before. No other joints affected. No fevers or chills. PFSH PFSH Medical History Cataract Gout Home Medications hydrocodone-acetaminophen 5-325mg 5mg-325mg 1 tab PO Q4H PRN PRN Pain 3 days #14 TABLETS 11/23/22 [Rx Last Taken Unknown] prednisone 20 mg tablet 20 mg PO BID #10 tabs 12/25/22 [Rx Last Taken Unknown] hydrocodone-acetaminophen 5-325mg 5mg-325mg 1 tab PO Q6H PRN pain 2 days #6 TABLETS 01/26/23 [Rx Last Taken Unknown] prednisone 20 mg tablet 40 mg PO DAILY 7 days #14 tabs 01/26/23 [Rx Last Taken Unknown] Allergy/AdvReac Type Severity Reaction Status Date / Time No Known Allergies Allergy Verified 12/27/22 12:46 Family History Mother Cancer Surgical History H/O eye surgery Social History household members: other Smoking Status: Never smoker substance use type: does not use ROS ROS ED Constitutional Constitutional ED: Denies chills or fever(s) Musculoskeletal Musculoskeletal: Reports extremity pain; Denies neck pain Integumentary Denies Abrasions, rash or wounds Neurologic Neurologic: Denies paresthesias or weakness EXAM Physical Exam Const Vital Signs: 01/26/23 09:19 Temperature 98.0 F Temperature Source Temporal Pulse Rate 70 Respiratory Rate 18 Blood Pressure 164/97 H Blood Pressure Mean 119 Pulse Ox 100 Oxygen Delivery Method Room Air Positive well nourished and well developed General Appearance ED: well developed and NAD Neck full ROM and supple Back/Spine normal ROM and normal to inspection Extremity full ROM Extremity Narrative: Mild tenderness around the right medial malleolus, warm compared with surrounding areas. No overt/gross erythema, patient is -Citizen Of [place] and difficult to tell major and/or subtle differences. Good range of motion, he does have pain at the extremes of plantarflexion and dorsiflexion of the foot. No signs of lymphangitis or abscess or other skin lesion. Neuro oriented x3, no focal motor deficits and no sensory deficits noted Sensorium / Orientation: alert Psych mental status grossly normal and thought process normal Skin no wounds Rashes: no rashes MDM MDM MDM Narrative Medical decision making narrative: I am happy to prescribe this patient a short course of prednisone and pain medication which she is requesting for this. We did discuss the possibility that this is some other type of monoarticular arthritis, and if the prednisone starts to make this worse she should discontinue and return to the ER immediately. He is comfortable with that plan. He is not on allopurinol right now, he has multiple episodes per year, I recommend close a patient follow-up for evaluation for prophylactic when this flareup is complete. Discharge Plan Triage Chief Complaint: Other, Pain/Inj ED Provider: Ranulfo Montoya Dx/Rx/DC Orders Clinical Impression: Acute right ankle pain Instructions: ED Gout Prescriptions: Continued prednisone 20 mg tablet 40 mg PO DAILY 7 Days Qty: 14 0RF Changed hydrocodone-acetaminophen 5-325 mg tablet 1 tab PO Q6H PRN (Reason: pain) 2 Days Qty: 6 0RF No Action hydrocodone-acetaminophen [hydrocodone-acetaminophen] 1 TABLET tablet 1 tab PO Q4H PRN PRN (Reason: Pain) 3 Days Qty: 14 0RF prednisone 20 mg tablet 20 mg PO BID Qty: 10 0RF Primary Care Provider: Kady Aguiar Referrals: Kady Aguiar MD [Primary Care Provider] - 3-5 Days if not improving Disposition Disposition: Home, Self Care
== END 2023-01-26 11:22 | disposition home or self-care (01) ==
PROVIDERS: Emergency Provider Emergency Medicine; PCP Family Medicine; Visit Provider Emergency Medicine
DX: M25.571 Pain in right ankle and joints of right foot (principal); M10.9 Gout, unspecified; Z79.52 Long term (current) use of systemic steroids
CPT/HCPCS: 99282

== ENCOUNTER 2023-03-01 13:54 | Emergency (ER) | payer MEDICAID, SELFPAY ==
[2023-03-01 13:55] VITALS: BP 162/105; PULSE 86; RESP 14; TEMP 36.1; O2SAT 96
--- NOTE | 2023-03-01 14:14 | RAD_ITS ---
STUDY: X-RAY - RIGHT KNEE REASON FOR EXAM: Male, 57 years old. Knee pain TECHNIQUE: 4 view(s) of the knee. COMPARISON: Comparison is made with prior examination dated November 20, 2018. FINDINGS: Normal visualized distal femur. Normal visualized proximal tibia and fibula. Normal proximal tibiofibular articulation. Normal medial femorotibial compartment. Normal lateral femorotibial compartment. Normal patellofemoral articulation. Moderate-sized joint effusion. RAD/Knee 4 or More Views IMPRESSION: Moderate size joint effusion. Electronically Signed: Americo Lanier MD at 14:57 EDT ,
--- NOTE | 2023-03-01 14:15 | EDS_ITS ---
HPI History of Present Illness Chief Complaint: Lower Extremity Injury Narrative Narrative: 57-year-old male presented with right knee pain and swelling. He states that he wore his [employer] M[employer] shoes yesterday and today he has swelling in the right knee. He specifically states that he does not wear the shoes anymore because it caused knee swelling in the past. Patient denies any direct trauma. He states he does have a history of gout but has never had gout in his knee so is unsure if this is a gout flareup. He can ambulate but he does have antalgic gait. [facility] Medical History (Updated 03/01/23 @ 15:[address] Rei German DO) Cataract Gout Home Medications hydrocodone-acetaminophen 5-325mg 5mg-325mg 1 tab PO Q4H PRN PRN Pain 3 days #14 TABLETS 11/23/22 [Rx Last Taken Unknown] prednisone 20 mg tablet 20 mg PO BID #10 tabs 12/25/22 [Rx Last Taken Unknown] hydrocodone-acetaminophen 5-325mg 5mg-325mg 1 tab PO Q6H PRN pain 2 days #6 TABL ETS 01/26/23 [Rx Last Taken Unknown] prednisone 20 mg tablet 40 mg PO DAILY 7 days #14 tabs 01/26/23 [Rx Last Taken Unknown] hydrocodone-acetaminophen 5-325mg 5mg-325mg 1 tab PO Q6H PRN PRN Pain 1 day #4 tabs 03/01/23 [Rx Last Taken Unknown] prednisone 20 mg tablet 40 mg PO DAILY #8 tabs 03/01/23 [Rx Last Taken Unknown] Allergy/AdvReac Type Severity Reaction Status Date / Time No Known Allergies Allergy Verified 03/01/23 13:55 Family History Mother Cancer Surgical History H/O eye surgery Social History household members: other Smoking Status: Never smoker substance use type: does not use ROS ROS ED Constitutional Constitutional ED: Denies chills, fever(s) or sweats Eyes Eyes: Denies blurry vision or change in vision ENT ENT ED: Denies ear pain or sore throat Cardiovascular Cardiovascular: Denies chest pain, palpitations or racing heartbeat Respiratory/Chest Respiratory/Chest: Denies cough, dyspnea or sputum Gastrointestinal Gastrointestinal: Denies abdominal pain, constipation, diarrhea, nausea or vomiting Genitourinary Genitourinary ED: Denies dysuria, hematuria or urinary frequency Musculoskeletal Musculoskeletal: Reports other Details: Right knee pain and ; Denies myalgias or neck pain Integumentary Denies abscess, Abrasions or rash Neurologic Neurologic: Denies headache(s), paresthesias or weakness Psychiatric Psychiatric: Denies anxiety, depression, suicidal ideation or suicidal thoughts Endocrine Endocrinology: Denies polydipsia or polyuria EXAM Physical Exam Const Vital Signs: 03/01/23 13:55 Temperature 97 F L Temperature Source Temporal Pulse Rate 86 Respiratory Rate 14 Blood Pressure 162/105 H Blood Pressure Mean 124 Pulse Ox 96 Oxygen Delivery Method Room Air Positive well nourished HEENT Reports moist mucous membranes Resp normal respiratory effort Extremity Extremity Narrative: Right knee tender to palpation of the patella. Some slight swelling. No ligamentous laxity. No short arc range of motion pain to suggest septic joint. No erythema or increased warmth. Psych mental status grossly normal MDM MDM MDM Narrative Medical decision making narrative: Obtained x-ray of the right knee which on my interpretation shows no acute fracture or subluxation. It does show a moderate-sized joint effusion. I do not believe he has a septic knee. He says he had gout before but he does not recall having gout in his knee. He prefers to treat this like gout however. He will be given prednisone for home. Patient request pain medicine. I told him I could give him a short supply but that he could use NSAIDs after his steroids were finished. He can still use Tylenol. He will follow-up with his PCP to ensure resolution. Impression: 1. Right knee effusion 2. History of gout Radiography Diagnostic Testing: Clinical Impression(s) from Imaging Studies Knee X-Ray 03/01/23 14:14 IMPRESSION: Moderate size joint effusion. Electronically Signed: Americo Lanier MD at 14:57 EDT , Discharge Plan Triage Chief Complaint: Lower Extremity Injury ED Provider: Rei German Dx/Rx/DC Orders Instructions: ED Knee Effusion Prescriptions: New prednisone 20 mg tablet 40 mg PO DAILY Qty: 8 0RF hydrocodone-acetaminophen 5-325 mg tablet 1 tab PO Q6H PRN PRN (Reason: Pain) 1 Days Qty: 4 0RF No Action hydrocodone-acetaminophen [hydrocodone-acetaminophen] 1 TABLET tablet 1 tab PO Q4H PRN PRN (Reason: Pain) 3 Days Qty: 14 0RF prednisone 20 mg tablet 20 mg PO BID Qty: 10 0RF hydrocodone-acetaminophen 5-325 mg tablet 1 tab PO Q6H PRN (Reason: pain) 2 Days Qty: 6 0RF prednisone 20 mg tablet 40 mg PO DAILY 7 Days Qty: 14 0RF Stand Alone Forms: ED Work / School Excuse Primary Care Provider: Kady Aguiar Referrals: Kady Aguiar MD [Primary Care Provider] - Disposition Disposition: Home, Self Care
[2023-03-01] MEDS: predniSONE 20 MG Tablet 60 MG PO (14:22)
== END 2023-03-01 15:34 | disposition home or self-care (01) ==
PROVIDERS: Emergency Provider Student in an Organized Health Care Education/Training Program; PCP Family Medicine; Visit Provider Student in an Organized Health Care Education/Training Program
DX: M25.461 Effusion, right knee (principal); M10.9 Gout, unspecified; X58.XXXA Exposure to other specified factors, initial encounter
CPT/HCPCS: 73564; 99282

== ENCOUNTER → 2023-03-03 | Outpatient (CLI) | payer MEDICAID, SELFPAY ==
[2023-03-03 15:58] LABS: Anion Gap 7 (5-15); BUN 22 mg/dL (7-18); BUN/Creat Ratio 18.8 RATIO (10-20); Calcium,Total 8.6 mg/dL (8.5-10.1); Chloride 110 mmol/L (98-107); Cholesterol 169 mg/dL (200); Creatinine, Serum 1.17 mg/dL (0.70-1.30); EST Glomerular Filtration Rate 68 mL/min (>60); Est Glom Filt Rate - Afr Amer 82 mL/min (>60); Glucose 91 mg/dL (74-106); High Density Lipoprotein 48 mg/dL; PSA,Total- Diagnostic 0.96 ng/mL (0.0-4.0); Potassium 3.7 mmol/L (3.5-5.1); Sodium Level 139 mmol/L (136-145); Triglycerides 333 mg/dL; Very Low Density Lipoprotein 67 mg/dL (5-40)
[2023-03-03 16:19] LABS: Microalbumin,Random Urine 30.7 mg/L (NO RANGE EST.); Microalbumin:Creatinine Ratio 15.4 mg/g CRE (<30 mg/g CRE)
== END | disposition home or self-care (01) ==
PROVIDERS: PCP Family Medicine; Visit Provider Family Medicine
DX: Z00.00 Encounter for general adult medical examination without abnormal findings (principal); I10 Essential (primary) hypertension
CPT/HCPCS: 36415; 80048; 80061; 82043; 82570; 84153

== ENCOUNTER 2023-03-18 09:32 | Emergency (ER) | payer MEDICAID, SELFPAY ==
[2023-03-18 09:33] VITALS: BP 152/87; PULSE 88; RESP 14; TEMP 36.4; O2SAT 100; BMI 35.2
--- NOTE | 2023-03-18 10:00 | ED.VIS.LOWEX ---
HPI History of Present Illness Chief Complaint: Lower Extremity Injury Narrative Narrative: 57-year-old male past medical history of gout, presents with right foot pain/pain in his toes for the last 2 weeks. He denies other injuries. He thinks he might be fractured however and is requesting an x-ray. He denies any fevers or chills or injury to his foot. States has been hurting him over the last few weeks and getting worse. It is mainly his fourth and fifth digits. PFSH PFSH Medical History Cataract Gout Home Medications NK 03/18/23 [History Last Taken Unknown] Allergy/AdvReac Type Severity Reaction Status Date / Time No Known Allergies Allergy Verified 03/18/23 09:35 Family History Mother Cancer Surgical History H/O eye surgery Social History household members: other Smoking Status: Never smoker substance use type: does not use ROS ROS ED ROS Narrative Constitutional: No fever, no chills. HEENT: No sore throat. No neck pain. No loss of vision. No rhinorrhea. Cardiovascular: No chest pain. No palpitations. No pedal edema. Respiratory: No cough, no shortness of breath. Abdominal: No abdominal pain. No nausea. No vomiting. Genitourinary: No dysuria. No hematuria. Musculoskeletal: No myalgias. Right foot pain, right toe pain, mainly is #4 and 5. Neurologic: No headaches. No dizziness. No lightheadedness. Skin: No rash. No change in color. Psychiatric: No depression. No anxiety. EXAM Physical Exam Narrative Exam Narrative: Afebrile. Vital signs noted. HEENT: Normocephalic. Atraumatic. PERRL, EOMI. Neck soft and supple. No point tenderness or step off. Cardiovascular: Regular rate and rhythm. No murmurs, rubs, or gallops appreciated. Respiratory: No tachypnea. Lungs clear to auscultation bilaterally. Gastrointestinal: Abdomen soft, nontender, with normoactive bowel sounds. No rebound or guarding. Neurological: Awake. Alert. Nonfocal, nonlateralizing. Skin: No rash. Normal color. No pallor. Musculoskeletal: No pedal edema. Full range of motion extremities. Mild tenderness at base of fourth and fifth digits. No overt swelling. Palpable dorsalis pedis pulse. Const Vital Signs: 03/18/23 09:33 Temperature 97.6 F L Temperature Source Temporal Pulse Rate 88 Respiratory Rate 14 Blood Pressure 152/87 H Blood Pressure Mean 108 Pulse Ox 100 Oxygen Delivery Method Room Air MDM MDM MDM Narrative Medical decision making narrative: I reviewed the patient's prior records, mainly his ED visits. He has been seen for knee pain and effusion previously at the beginning of the month. I do not feel that this is a gouty exacerbation as it is mainly in the toes. X-rays will be obtained of the foot and 3 views. Upon my independent interpretation, there is an oblique fracture of the fifth metatarsal bone. In review of the radiology report, this confirms that there is a nondisplaced fracture of the mid and distal portion of the fifth metatarsal. At this point in time, he was placed in a postoperative shoe, and will follow-up with podiatry. He will continue ice and elevation at home and [id number] analgesics. He has been walking on this for 2 weeks but once again denies any known injury. Initially, he stated that he just wanted to take home the postoperative shoe and not have it applied here in the emergency department. Disposition is discharged home in stable condition. Radiography Diagnostic Testing: Clinical Impression(s) from Imaging Studies Foot X-Ray 03/18/23 10:11 IMPRESSION: Nondisplaced oblique fracture of the mid and distal portion of the fifth metatarsal. Electronically Signed: Americo Lanier MD at 10:50 EDT , Discharge Plan Triage Chief Complaint: Lower Extremity Injury ED Provider: Sunday Rodriguez Dx/Rx/DC Orders Clinical Impression: Metatarsal fracture, Toe pain Instructions: ED Fracture, Foot Prescriptions: No Action NK Primary Care Provider: Kady Aguiar Referrals: Kady Aguiar MD [Primary Care Provider] - Mauricio Stevens DPM [Med Staff - Active Staff] - As soon as possible Disposition Disposition: Home, Self Care
--- NOTE | 2023-03-18 10:11 | RAD_ITS ---
STUDY: X-RAY - RIGHT FOOT CLINICAL: Male, 57 years old. Pain. No known injury. TECHNIQUE: 3 view(s) of the foot. COMPARISON: Comparison is made with prior study dated August 19, 2018. FINDINGS: Normal talus, calcaneus, and tarsal bones. Normal visualized subtalar, talonavicular, calcaneocuboid, tarsal and tarsometatarsal articulations. There is a nondisplaced oblique fracture of the distal and middle portion of the fifth metatarsal. Normal metatarsophalangeal joint of the great toe. Normal tibial and fibular sesamoid bones. Normal interphalangeal joint of the great toe. Normal phalanges of the great toe. Normal second through fifth metatarsophalangeal joints. Normal interphalangeal joints and phalanges of the lesser toes. Soft tissue swelling. RAD/Foot min 3 Views IMPRESSION: Nondisplaced oblique fracture of the mid and distal portion of the fifth metatarsal. Electronically Signed: Americo Lanier MD at 10:50 EDT ,
[2023-03-18 11:23] VITALS: RESP 18
== END 2023-03-18 11:28 | disposition home or self-care (01) ==
PROVIDERS: Emergency Provider Emergency Medicine; PCP Family Medicine; Referring Provider Emergency Medicine; Visit Provider Emergency Medicine
DX: S92.354A Nondisplaced fracture of fifth metatarsal bone, right foot, initial encounter for closed fracture (principal); M79.674 Pain in right toe(s)
CPT/HCPCS: 73630; 99283

== ENCOUNTER 2023-04-14 18:48 | Emergency (ER) | payer MEDICAID, SELFPAY ==
[2023-04-14 18:49] VITALS: BP 152/97; PULSE 78; RESP 16; TEMP 36.6; O2SAT 98; BMI 35.6
--- NOTE | 2023-04-14 20:12 | EX.ED.UPPERE ---
HPI History of Present Illness Chief Complaint: Upper Extremity Injury Narrative Narrative: 57-year-old male with history of gout with nontraumatic left hand swelling. He believes you have a gout flare. This started yesterday. No numbness or tingling. [facility] Medical History Cataract Gout Home Medications prednisone 10 mg tablet 10 mg PO UD #33 tabs 04/14/23 [Rx Last Taken Unknown] Allergy/AdvReac Type Severity Reaction Status Date / Time No Known Allergies Allergy Verified 04/14/23 18:48 Family History Mother Cancer Surgical History H/O eye surgery Social History household members: other Smoking Status: Never smoker substance use type: does not use ROS ROS ED Constitutional Constitutional ED: Denies chills, fever(s) or sweats Eyes Eyes: Denies blurry vision or change in vision ENT ENT ED: Denies ear pain or sore throat Cardiovascular Cardiovascular: Denies chest pain, palpitations or racing heartbeat Respiratory/Chest Respiratory/Chest: Denies cough, dyspnea or sputum Gastrointestinal Gastrointestinal: Denies abdominal pain, constipation, diarrhea, nausea or vomiting Genitourinary Genitourinary ED: Denies dysuria, hematuria or urinary frequency Musculoskeletal Musculoskeletal: Reports other Details: Left hand edema ; Denies arthralgias, myalgias or neck pain Integumentary Reports other; Denies abscess, Abrasions or rash Neurologic Neurologic: Denies headache(s), paresthesias or weakness Psychiatric Psychiatric: Denies anxiety, depression, suicidal ideation or suicidal thoughts Endocrine Endocrinology: Denies polydipsia or polyuria EXAM Physical Exam Const Vital Signs: 04/14/23 18:49 Temperature 97.8 F Temperature Source Temporal Pulse Rate 78 Respiratory Rate 16 Blood Pressure 152/97 H Blood Pressure Mean 115 Pulse Ox 98 Oxygen Delivery Method Room Air Positive well nourished HEENT normocephalic and atraumatic Eyes PERRL and EOMs intact bilaterally Resp normal respiratory effort Cardio regular rate and regular rhythm Extremity Extremity Narrative: Left hand edema diffusely. Left hand neurovascular intact brisk cap refill all 5 fingers. No bony tenderness. Neuro oriented x3 and CN's II-XII intact bilaterally Sensorium / Orientation: alert Motor Exam: strength 5/5 throughout Psych mental status grossly normal MDM MDM MDM Narrative Medical decision making narrative: 57-year-old male likely with gout flare to the left hand. He was put on prednisone taper. First dose given in the ER. He is counseled to follow-up with his PCP to ensure resolution. Discharged stable condition. Impression: 1. Gout flare Discharge Plan Triage Chief Complaint: Upper Extremity Injury ED Provider: Rei German Dx/Rx/DC Orders Instructions: ED Gout, ED Gout Diet Prescriptions: New prednisone 10 mg tablet 10 mg PO UD Qty: 33 0RF Rx Instructions: Take 4 tablets daily for 3 days, then 3 daily for 3 days, then 2 daily for 3 days, then 1 a day for 3 days then 1 QOD for 3 doses. Primary Care Provider: Kady Aguiar Referrals: Kady Aguiar MD [Primary Care Provider] - Disposition Disposition: Home, Self Care Discharge Date/Time: 04/14/23 20:24
[2023-04-14] MEDS: predniSONE 20 MG Tablet 60 MG PO (20:21)
== END 2023-04-14 20:24 | disposition home or self-care (01) ==
PROVIDERS: Emergency Provider Student in an Organized Health Care Education/Training Program; PCP Family Medicine; Visit Provider Student in an Organized Health Care Education/Training Program
DX: M10.9 Gout, unspecified (principal)
CPT/HCPCS: 99283

== ENCOUNTER 2023-04-21 03:02 | Emergency (ER) | payer MEDICAID, SELFPAY ==
[2023-04-21 03:03] VITALS: BP 159/86; PULSE 64; RESP 15; TEMP 36.7; O2SAT 100; BMI 32.8
--- NOTE | 2023-04-21 03:48 | EDS_ITS ---
HPI History of Present Illness HPI Narrative: 57-year-old male history of gout as atraumatic left hand swelling primarily of the small and ring finger. Denies any fall injury or trauma. Prior history. Was seen in the emergency department started on a prednisone taper which he says not significantly improved his symptoms. He has had this before and his prednisone normally help. He denies any fever or redness. He said his only some mild discomfort. He has never had surgery to his left hand. He is left- hand dominant. Chief Complaint: Edema Informant: patient Occured/Mechanism Mechanism/Context: No injury and No blunt trauma Onset/Context/Timing Onset: Weeks Context: Gradual Onset Timing: Continuous Quality of Pain: Dull and Aching Current Severity: Mild Maximum Severity: Mild Associated Symptoms Associated Symptoms: Negative for Parasthesia, Weakness or Loss of Funtion Narrative Narrative: The 57-year-old gentleman with history of gout and atraumatic swelling to his left ring and small finger. Was on a short course of prednisone taper that did not improve his symptoms. He has had this before. Denies any surgery to his left hand. He denies any fever or chills. Prior similar symptoms: Yes Recent Illness/Hospitalization: No PFSH PFSH Medical History Cataract Gout Home Medications prednisone 20 mg tablet 40 mg PO DAILY 10 days #20 tabs 04/21/23 [Rx Last Taken Unknown] Allergy/AdvReac Type Severity Reaction Status Date / Time No Known Allergies Allergy Verified 04/21/23 03:07 Family History Mother Cancer Surgical History H/O eye surgery Social History household members: other Smoking Status: Never smoker substance use type: does not use ROS ROS ED ROS Narrative Denies recent illness. Review of Systems ROS Unobtainable: Denies due to encephalopathy Constitutional Constitutional ED: Denies chills or fever(s) Eyes Eyes: Denies blurry vision ENT ENT ED: Denies ear pain Cardiovascular Cardiovascular: Denies chest pain Respiratory/Chest Respiratory/Chest: Denies cough Gastrointestinal Gastrointestinal: Denies abdominal pain Genitourinary Genitourinary ED: Denies dysuria Musculoskeletal Musculoskeletal: Denies back pain Integumentary Denies abscess Neurologic Neurologic: Denies headache(s) Psychiatric Psychiatric: Denies anxiety Endocrine Endocrinology: Denies cold intolerance Hematologic/Lymphatic Hematologic/Lymphatic: Denies easy bleeding Allergic/Immunologic Allergic/Immunologic ED: Denies mouth swelling or tongue swelling EXAM Physical Exam Narrative Exam Narrative: 57-year-old male vital signs stable afebrile. No acute distress. HEENT exam unremarkable. Lungs clear. Heart regular rhythm no murmur. Abdomen soft nontender. Moving all 4 extremities. Neurovascular intact. Specifically the left wrist is nontender nonswollen. The left hand he has mild swelling to his left small finger ring finger. There is no jewelry on the hand. There is no signs of cellulitis. No lymphangitic streaking. No axillary lymphadenopathy. The forearm, left elbow and left shoulder are unremarkable. He has full flexion to the left hand. There is no signs of trauma. No bony deformity. Normal touch sensation. Const Vital Signs: 04/21/23 03:03 Temperature 98.1 F Temperature Source Temporal Pulse Rate 64 Respiratory Rate 15 Blood Pressure 159/86 H Blood Pressure Mean 110 Pulse Ox 100 Oxygen Delivery Method Room Air Positive well nourished and well developed; Negative for cachectic, contractures or unkempt General Appearance ED: well developed and NAD; Negative for unkempt, cachectic, contractures, cyanotic or diaphoretic Nutritional Appearance: Negative for cachectic HEENT Reports moist mucous membranes normocephalic and atraumatic; Negative for trauma or tenderness Neck full ROM and supple General: Negative for tenderness Lymph Lymphatic: Negative for other Chest Wall inspection of chest normal and palpation of chest normal Resp Effort and Inspection: Negative for pain with movement Auscultation: Negative for rales, rhonchi or wheezes Cardio regular rate, regular rhythm, S1 normal heart sound, S2 normal heart sound and no murmurs Rate: Negative for bradycardia or tachycardic Rhythm: Negative for abnormal rhythm GI non-tender, non-distended and no masses Inspection: Negative for abdominal distention Auscultation: normoactive bowel sounds Palpation: soft; Negative for tender or guarding Back/Spine no CVA tenderness General Back: Negative for CVA tenderness Cervical Spine: Negative for cervical spine tenderness Thoracic Spine / Upper Back: Negative for thoracic spinal tenderness Lumbar Spine / Lower Back: Negative for lumbar spinal tenderness Extremity full ROM; Negative for normal to inspection Extremity Narrative: Mild swelling left ring and small finger. No cellulitis. No signs of infection. No bony deformity. Neurovascular intact. Only mildly tender. General Extremety ED: Yes edema General Extremity: edema Neuro oriented x3 and CN's II-XII intact bilaterally Sensorium / Orientation: alert, oriented to person, oriented to place and oriented to time; Negative for orientation impaired, lethargic or stuporous Motor Exam: strength 5/5 throughout Psych mental status grossly normal Appearance: Negative for unkempt Attitude: No agitated Mood & Affect: Negative for depressed, anxious or tearful Skin General Skin Exam: Negative for petechiae Lesions: no lesions Rashes: no rashes Trauma: no lacerations or abrasions; Negative for abrasion or laceration MDM MDM MDM Narrative Medical decision making narrative: 57-year-old male has atraumatic swelling of his left ring and small finger. No history of trauma no bony deformity at all think he needs x-rays. There is no signs of infection or foreign body. He does not need any labs. I believe he still needs prednisone he just has not been on long enough course. To be placed on a 40 mg a day for 10 days. Elevate the hand. Limited Motrin and Tylenol for pain. Follow-up with his doctor if not improving. Return if worse or any signs of infection. History & Record Review Discussion w/independent historian: Patient Discharge Plan Triage Chief Complaint: Edema ED Provider: Dean Mendez Dx/Rx/DC Orders Clinical Impression: Gout Instructions: ED Gout Prescriptions: New prednisone 20 mg tablet 40 mg PO DAILY 10 Days Qty: 20 0RF Primary Care Provider: Kady Aguiar Referrals: Kady Aguiar MD [Primary Care Provider] - 3-5 Days if not improving Activity Restrictions/Additional Instructions: Swelling in her hand there may not be secondary to gout. Prednisone 40 mg a day for the next 10 days. Follow-up with your doctor if not improving. Return if fever, red streaks or feeling worse. Disposition Disposition: Home, Self Care
[2023-04-21] MEDS: predniSONE 20 MG Tablet 40 MG PO (03:57)
== END 2023-04-21 04:11 | disposition home or self-care (01) ==
PROVIDERS: Emergency Provider Emergency Medicine; PCP Family Medicine; Visit Provider Emergency Medicine
DX: M10.9 Gout, unspecified (principal)
CPT/HCPCS: 99282

== ENCOUNTER 2023-04-28 14:13 | Emergency (ER) | payer MEDICAID, SELFPAY ==
[2023-04-28 14:13] VITALS: BP 159/114; PULSE 84; RESP 16; TEMP 36.6; O2SAT 99; BMI 32.6
--- NOTE | 2023-04-28 14:48 | EX.ED.UPPERE ---
HPI History of Present Illness Chief Complaint: Upper Extremity Injury Narrative Narrative: Patient is a left dominant 57-year-old male who is presenting to the ER today with chief complaint of left hand pain, left finger pain to the left pinky and ring finger. Patient has been here several times to the ER in the past several weeks. Patient states that he has been on prednisone, that has helped. But when the prednisone wears off, the pain and swelling will come back. The left fourth and fifth finger is having pain with flexion, extension, and do have mild swelling. Patient has been treated for gout several times. Patient has not followed up with orthopedic surgeon or cinnamon grinder. Patient does have a PCP. Patient is also aware of his blood pressure being elevated, patient states that he has a history of elevated blood pressure when he is in the ER, [place] hypertension. 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 Patient has no burn. Patient has no acute injury, fall, or trauma. This is acute on chronic pain for the past several months. Patient has no left elbow pain, left shoulder pain, neck pain, no headache, no other acute complaints. [facility] Medical History Cataract Gout Home Medications prednisone 20 mg tablet 40 mg PO DAILY 10 days #20 tabs 04/21/23 [Rx Last Taken Unknown] hydrocodone-acetaminophen 5-325mg 5mg-325mg 1 tab PO Q4H PRN PRN Pain 2 days #4 TABLETS 04/28/23 [Rx Last Taken Unknown] meloxicam 7.5 mg tablet 7.5 mg PO DAILY #20 tabs 04/28/23 [Rx Last Taken Unknown] Allergy/AdvReac Type Severity Reaction Status Date / Time No Known Allergies Allergy Verified 04/28/23 14:15 Family History Mother Cancer Surgical History H/O eye surgery Social History household members: other Smoking Status: Never smoker substance use type: does not use ROS ROS ED ROS Narrative REVIEW OF SYSTEMS: Unless otherwise stated in this report the patient's positive and negative responses for review of systems for constitutional, eyes, ENT, cardiovascular, respiratory, gastrointestinal, neurological, , musculoskeletal, and integument systems and related systems to the presenting problem are either stated in the history of present illness or were not pertinent or were negative for the symptoms and/or complaints related to the presenting medical problem. EXAM Physical Exam Narrative Exam Narrative: Vital signs reviewed and patient is not hypoxic. General: The patient appears well and in no apparent distress. Patient is resting comfortably on cart. Not toxic, lethargic, or listless. Skin: Warm, dry, no pallor noted. There is no rash noted. Head: Normocephalic, atraumatic Eye: Normal conjunctiva, no drainage, EOMI. PERRL. Ears, Nose, Mouth, and Throat: oral mucosa is moist. Nares patent. Mouth without vesicles. Cardiovascular: Regular Rate and Rhythm, no murmurs, gallops, or rubs Respiratory: Patient is in no distress, no accessory muscle use, lungs are clear to auscultation, no wheezing, rales or rhonchi Musculoskeletal: The patient has full range of motion of all extremities and joints with no difficulty except to his left ring and pinky finger. Patient has moderate pain with flexion and extension of left pinky finger. There is no redness. Patient has no [place] signs. Patient has no obvious injury, deformity. Patient has normal cap refill to all 5 fingers of the left hand. Patient has full range of motion of his left wrist, elbow and left shoulder no difficulty. Patient has no pain to ulnar groove the left elbow. No sensation deficits to all 5 fingers of the left hand. No signs of cellulitis, no signs of septic joint to his left ring or pinky finger. . Patient has no motor, no sensory deficits. Neurological: A&O x4, normal speech, no focal neurological deficits. Psychiatric: Cooperative Const Vital Signs: 04/28/23 14:13 Temperature 98 F Temperature Source Temporal Pulse Rate 84 Respiratory Rate 16 Blood Pressure 159/114 H Blood Pressure Mean 129 Pulse Ox 99 Oxygen Delivery Method Room Air MDM MDM MDM Narrative Medical decision making narrative: Patient was educated that we cannot treat chronic pain from the ER. Patient was given names and numbers of orthopedic surgeons and cinnamon grinder to follow-up with. Patient told me that no one else in the ER has told him this, I told the patient I find it hard to believe. Typically we have you follow-up with your PCP, or joint specialist especially when you have had multiple visits to the ER. Patient was educated that following up with a cinnamon grinder would probably be a priority along with orthopedic surgery if needed. Patient agrees and is thankful for information. Patient was told we cannot treat chronic pain from the ER, he was given 4 tablets of [place] to use for severe pain at home, otherwise was told to use ice, and was also prescribed Mobic. No indication for steroids again. Patient was educated steroids not something that use long-term typically. Patient agrees. Patient will use ice, Tylenol every 4 hours as needed. Mobic as well. Patient will make appointment with specialist and understands the importance of this. Patient understands that by coming to the ER over and over again for the same type of complaint in pain is not helping him at this point, he needs to see joint specialist. Patient agrees and understands, patient was very thankful for help with time in the ER today. Discharge Plan Triage Chief Complaint: Upper Extremity Injury ED Provider: Mauricio Ceja Dx/Rx/DC Orders Clinical Impression: Pain in left hand, Finger pain, left, Joint pain in fingers of left hand Instructions: Understanding the Pain Response, ED Pain, Acute, Uncertain Cause, ED RICE Prescriptions: New meloxicam 7.5 mg tablet 7.5 mg PO DAILY Qty: 20 0RF hydrocodone-acetaminophen [hydrocodone-acetaminophen] 5-325 mg tablet 1 tab PO Q4H PRN PRN (Reason: Pain) 2 Days Qty: 4 0RF No Action prednisone 20 mg tablet 40 mg PO DAILY 10 Days Qty: 20 0RF Primary Care Provider: Kady Aguiar Referrals: Kady Aguiar MD [Primary Care Provider] - Wayne Andrade DO [Med Staff - Active Staff] - Activity Restrictions/Additional Instructions: You need to call orthopedic surgeon or cinnamon grinder. Local cinnamon grinder is Dr. Tim Pearl MD. orthopedic surgeon on-call is Dr. Andrade. He may also use the [facility] which has orthopedic surgeons, cinnamon grinder, multiple specialist for joint and hand pain, based out of the [facility]. Repeat visits to the ER for orthopedics, joint pain, joint discomfort, and rheumatology complaints needs to be seeing a specialist, we cannot treat chronic pain from the ER. Start recording your blood pressure at home, record your blood pressure only once or twice a day. Record this for 1 to 2 weeks, follow-up with your PCP, to see if your blood pressure is consistently over 140/90 and you may need to start taking blood pressure medication as well. This is creating a blood pressure log Disposition Disposition: Home, Self Care Discharge Date/Time: 04/28/23 15:21
[2023-04-28 15:18] VITALS: BP 167/97
== END 2023-04-28 15:21 | disposition home or self-care (01) ==
PROVIDERS: Emergency Provider Emergency Medicine; PCP Family Medicine; Visit Provider Emergency Medicine
DX: M79.642 Pain in left hand (principal); M79.645 Pain in left finger(s); M25.542 Pain in joints of left hand
CPT/HCPCS: 99283

== ENCOUNTER → 2023-05-03 | Outpatient (CLI) | payer MEDICAID, SELFPAY ==
--- NOTE | 2023-05-03 09:50 | RAD_ITS ---
EXAM: XR LEFT HAND COMPLETE, 3 OR MORE VIEWS CLINICAL INDICATION: pain TECHNIQUE: Frontal, lateral and oblique views of the left hand. COMPARISON: No relevant prior studies available. FINDINGS: BONES/JOINTS: There are mild degenerative changes with narrowing of the distal interphalangeal joint predominantly in the fourth phalanx. No acute fracture. No subluxation. Normal alignment. No sclerotic or destructive changes observed. SOFT TISSUES: Unremarkable. No soft tissue swelling or gas. No radiopaque foreign body. RAD/Hand Min 3 Views IMPRESSION: Degenerative changes with narrowing of the distal interphalangeal joints. There are no acute osseous abnormalities. Electronically Signed: Jere Bae MD at 20:31 EDT ,
[2023-05-03 12:04] LABS: Absolute Lymphocyte Count 1.72 X10^3/uL (0.83-4.51); Absolute Neutrophil Count 8.5 X10^3/uL (2.0-7.7); Basophil# 0.03 X10^3/uL; Basophil% 0.3 % (0-1); Eosinophil# 0.01 X10^3/uL; Eosinophils% 0.1 % (0-5); Erythrocyte Sedimentation Rate 24 mm/hr (0-20); Hematocrit 43.5 % (40-54); Hemoglobin 14.3 g/dL (13.0-16.5); Lymphocyte # 1.72 X10^3/ul (0.83-4.51); Mean Corp Hgb Conc 32.9 g/dL (32-36); Mean Corpuscular Hgb 30.6 pg (27.0-32.0); Mean Corpuscular Volume 92.9 fL (80-94); Mean Platelet Vol. 10.4 fl (6.2-12.0); Monocyte# 0.35 X10^3/uL; Monocyte% 3.3 % (0-10); NRBC Flagged by Analyzer 0 % (0-5); Neutrophil # 8.46 X10^3/uL (2.7-7.7); Neutrophil % 78.9 % (47-70); Platelet Count 283 K/mm3 (150-450); RBC Distribution Width CV 14.5 % (11.6-14.6); RBC Distribution Width SD 49.1 fl (35.1-43.9); Red Blood Count 4.68 M/mm3 (4.6-6.2); White Blood Count 10.7 K/mm3 (4.4-11.0)
[2023-05-03 12:22] LABS: Rheumatoid Factor < 10.0 IU/mL (<15); Uric Acid 8.3 mg/dL (3.5-7.2)
[2023-05-04 16:10] LABS: ANTINUCLEAR ANTIBODIES DIRECT Negative (Negative)
== END | disposition home or self-care (01) ==
LOC: MTLAB 09:46
PROVIDERS: PCP Family Medicine; Referring Provider Family Medicine; Visit Provider Family Medicine
DX: M79.643 Pain in unspecified hand (principal); M10.9 Gout, unspecified
CPT/HCPCS: 36415; 73130; 84550; 85025; 85652; 86038; 86431

== ENCOUNTER 2023-05-06 20:30 | Emergency (ER) | payer MEDICAID, SELFPAY ==
[2023-05-06 20:31] VITALS: BP 144/96; PULSE 80; RESP 16; TEMP 37.1; O2SAT 96; BMI 32.8
--- NOTE | 2023-05-06 21:23 | EX.ED.UPPERE ---
HPI History of Present Illness HPI Narrative: [id number] male history of gout has atraumatic left hand swelling. He is on meloxicam without any relief. He has also been recently placed on allopurinol by an urgent care without relief. Presents today stating that normally prednisone makes this better. He just needs a prescription. He denies any fall or trauma. No fever. Chief Complaint: Edema Occured/Mechanism Mechanism/Context: No injury and No blunt trauma Onset/Context/Timing Onset: Days Context: Gradual Onset Timing: Continuous Quality of Pain: Dull and Aching Current Severity: Mild Maximum Severity: Mild Associated Symptoms Associated Symptoms: Negative for Parasthesia, Weakness or Loss of Funtion Narrative Narrative: 57-year-old male history of gout. Atraumatic left hand discomfort and swelling. Prior history of same with gout. Prior similar symptoms: Yes Recent Illness/Hospitalization: No PFSH PFSH Medical History Cataract Gout Home Medications prednisone 20 mg tablet 40 mg PO DAILY 10 days #20 tabs 04/21/23 [Rx Last Taken Unknown] hydrocodone-acetaminophen 5-325mg 5mg-325mg 1 tab PO Q4H PRN PRN Pain 2 days #4 TABLETS 04/28/23 [Rx Last Taken Unknown] meloxicam 7.5 mg tablet 7.5 mg PO DAILY #20 tabs 04/28/23 [Rx Last Taken Unknown] prednisone 20 mg tablet 40 mg PO DAILY 7 days #14 tabs 05/06/23 [Rx Last Taken Unknown] Allergy/AdvReac Type Severity Reaction Status Date / Time No Known Allergies Allergy Verified 05/06/23 20:31 Family History Mother Cancer Surgical History H/O eye surgery Social History household members: other Smoking Status: Never smoker substance use type: does not use ROS ROS ED ROS Narrative Denies recent illness. Review of Systems ROS Unobtainable: Denies due to encephalopathy Constitutional Constitutional ED: Denies fever(s) Eyes Eyes: Denies blurry vision ENT ENT ED: Denies ear pain Cardiovascular Cardiovascular: Denies chest pain Respiratory/Chest Respiratory/Chest: Denies cough or dyspnea Gastrointestinal Gastrointestinal: Denies abdominal pain Genitourinary Genitourinary ED: Denies dysuria or hematuria Musculoskeletal Musculoskeletal: Denies back pain Integumentary Denies abscess Neurologic Neurologic: Denies headache(s) Psychiatric Psychiatric: Denies anxiety Endocrine Endocrinology: Denies cold intolerance Hematologic/Lymphatic Hematologic/Lymphatic: Denies easy bleeding or easy bruising Allergic/Immunologic Allergic/Immunologic ED: Denies mouth swelling or tongue swelling EXAM Physical Exam Narrative Exam Narrative: 57-year-old male no acute distress. Vital signs stable afebrile. HEENT exam normal. Lungs clear. Heart regular rhythm. Abdomen soft nontender. Moving all 4 extremities. Left hand mildly swollen. Tender. No cellulitis. No lymphangitic streaking. No axillary lymphadenopathy. Left hand neurovascular intact. Decreased flexion extension due to discomfort and swelling. Exam consistent with gout. Const Vital Signs: 05/06/23 20:31 05/06/23 20:59 Temperature 98.8 F Temperature Source Temporal Pulse Rate 80 Respiratory Rate 16 Respiratory Effort Normal Respiratory Pattern Normal Blood Pressure 144/96 H Blood Pressure Mean 112 Pulse Ox 96 Positive well nourished and well developed; Negative for cachectic or unkempt General Appearance ED: well developed and NAD; Negative for unkempt, cachectic, cyanotic or diaphoretic Nutritional Appearance: Negative for cachectic HEENT Reports moist mucous membranes Negative for normocephalic, atraumatic, trauma or tenderness Eyes PERRL and EOMs intact bilaterally General Eye ED: Negative for other Neck full ROM and supple General: Negative for tenderness Lymph Lymphatic: Negative for other Chest Wall inspection of chest normal and palpation of chest normal Chest: Negative for other Resp normal respiratory effort and clear to auscultation bilaterally Effort and Inspection: Negative for pain with movement Auscultation: Negative for rales, rhonchi or wheezes Cardio regular rate, regular rhythm, S1 normal heart sound, S2 normal heart sound and no murmurs GI non-tender, non-distended and no masses Inspection: Negative for abdominal distention Auscultation: normoactive bowel sounds Palpation: soft; Negative for tender or guarding Bladder / Kidney Exam: No other Back/Spine no CVA tenderness General Back: Negative for CVA tenderness Cervical Spine: Negative for cervical spine tenderness Thoracic Spine / Upper Back: Negative for thoracic spinal tenderness Lumbar Spine / Lower Back: Negative for lumbar spinal tenderness Extremity normal to inspection and full ROM Extremity Narrative: Except mild swelling left hand. Decreased range of motion. No cellulitis. Neurovascular intact. General Extremety ED: Yes edema General Extremity: edema Neuro oriented x3, CN's II-XII intact bilaterally, moves all extremities and no focal motor deficits Sensorium / Orientation: alert, oriented to person, oriented to place and oriented to time; Negative for orientation impaired, lethargic or stuporous Motor Exam: strength 5/5 throughout Psych mental status grossly normal Appearance: Negative for unkempt Attitude: No agitated Mood & Affect: Negative for depressed, anxious or tearful Skin General Skin Exam: Negative for petechiae Lesions: no lesions Rashes: no rashes Trauma: no lacerations or abrasions MDM MDM MDM Narrative Medical decision making narrative: 57-year-old male history of gout atraumatic swelling left hand consistent with gout. Given dose of prednisone here 40 mg. Placed on a prescription 40 mg a day for 1 week. Follow-up with his doctor. Return if worse. History & Record Review Discussion w/independent historian: Patient Discharge Plan Triage Chief Complaint: Edema ED Provider: Dean Mendez Dx/Rx/DC Orders Clinical Impression: Gout Instructions: ED Gout Prescriptions: New prednisone 20 mg tablet 40 mg PO DAILY 7 Days Qty: 14 0RF No Action prednisone 20 mg tablet 40 mg PO DAILY 10 Days Qty: 20 0RF meloxicam 7.5 mg tablet 7.5 mg PO DAILY Qty: 20 0RF hydrocodone-acetaminophen [hydrocodone-acetaminophen] 5-325 mg tablet 1 tab PO Q4H PRN PRN (Reason: Pain) 2 Days Qty: 4 0RF Primary Care Provider: Kady Aguiar Referrals: Kady Aguiar MD [Primary Care Provider] - 1 Week if not improving Activity Restrictions/Additional Instructions: Elevate hand to decrease pain and swelling Follow-up with your doctor if not improving. Prednisone 40 mg once a day for the next 7 days starting tomorrow. Stop the meloxicam. Disposition Disposition: Home, Self Care
[2023-05-06] MEDS: predniSONE 20 MG Tablet 40 MG PO (21:28)
== END 2023-05-06 21:33 | disposition home or self-care (01) ==
PROVIDERS: Emergency Provider Emergency Medicine; PCP Family Medicine; Visit Provider Emergency Medicine
DX: M10.9 Gout, unspecified (principal)
CPT/HCPCS: 99283

== ENCOUNTER 2023-05-15 06:30 | Emergency (ER) | payer MEDICAID, SELFPAY ==
[2023-05-15 06:33] VITALS: BP 160/103; PULSE 109; RESP 16; TEMP 36.1; O2SAT 99; BMI 32.2
--- NOTE | 2023-05-15 07:10 | EDS_ITS ---
HPI History of Present Illness Chief Complaint: Upper Extremity Injury [facility] Medical History Cataract Gout Home Medications prednisone 20 mg tablet 40 mg PO DAILY 10 days #20 tabs 04/21/23 [Rx Last Taken Unknown] hydrocodone-acetaminophen 5-325mg 5mg-325mg 1 tab PO Q4H PRN PRN Pain 2 days #4 TABLETS 04/28/23 [Rx Last Taken Unknown] meloxicam 7.5 mg tablet 7.5 mg PO DAILY #20 tabs 04/28/23 [Rx Last Taken Unknown] prednisone 20 mg tablet 40 mg PO DAILY 7 days #14 tabs 05/06/23 [Rx Last Taken Unknown] prednisone 20 mg tablet 40 mg PO DAILY #10 tabs 05/15/23 [Rx Last Taken Unknown] Allergy/AdvReac Type Severity Reaction Status Date / Time No Known Allergies Allergy Verified 05/15/23 06:32 Family History Mother Cancer Surgical History H/O eye surgery Social History household members: other Smoking Status: Never smoker substance use type: does not use EXAM Physical Exam Const Vital Signs: 05/15/23 06:33 Temperature 97 F L Temperature Source Temporal Pulse Rate 109 H Respiratory Rate 16 Blood Pressure 160/103 H Blood Pressure Mean 122 Pulse Ox 99 MDM [facility] MDM Narrative Medical decision making narrative: HISTORY OF PRESENT ILLNESS: 57-year-old male here for left hand swelling. Patient states he has had 3 weeks of left fifth digit pain and swelling. States is responded to prednisone. States recently started allopurinol but has not had any effect. States he has a history of gouty arthritis diagnosed by arthrocentesis. Denies any trauma. Den ies any fever. Denies a history of diabetes. Denies any numbness tingling loss sensation REVIEW OF SYSTEMS: Pertinent positives: Hand pain Pertinent negatives: Numbness tingling loss sensation PHYSICAL EXAM: Nursing triage notes reviewed, Vital signs reviewed Constitutional: please see mdm Extremities: No edema, no obvious deformity, slight swelling over the middle IP joint of the fifth digit of the left hand, no obvious fusiform swelling, no pain over flexor tendons, the finger is held neutral and not in flexion Neuro: Intact 5/5 strength with ok sign (median), intact finger abduction (ulnar) intact wrist extension (radial n). Intact sensation in the radial, ulnar, and median nerve distributions. Skin: No rash or lesions noted, no crepitus, no bullae, pain is on reports exam. MEDICAL DECISION MAKING: Chief Complaint: Hand pain External records reviewed: Multiple recent ED visits for similar Factors affecting care: History of gout Social determinants of health: Denies drug use History obtained from others: None Consults: None ALL IMAGES (IF OBTAINED) HAVE BEEN PERSONALLY REVIEWED AND INTERPRETED BY MYSELF. MDM Narrative: I considered the following differential diagnosis: Septic arthritis, fracture- dislocation, gouty arthritis, tenosynovitis The patient's presentation is clinically most consistent with gouty arthritis. There is no trauma to suggest fracture dislocation. The patient's presentation is not consistent with septic arthritis or flexor tenosynovitis. In addition to this there is no obvious area to perform arthrocentesis. I discussed risk and benefits of arthrocentesis. The patient I agreed the risk were higher than benefit at this time given lack of swelling or lack of an appropriate target and risk of damaging surrounding structures, bleeding and introducing infection. I gave the patient prednisone here in for 5 days. I gave him rheumatology follow- up. The patient and/or family, caregivers express understanding. The patient and/or family, caregivers agrees with the plan. Total critical care time today provided was at least 0 minutes. This excludes separately billable procedures. Critical care time (if documented) is secondary to the patient having high probability of clinically significant/life threatening deterioration in the patient's condition which required my urgent intervention. Shared decision making: I will have a discussion with the patient and or visitors regarding risk/benefits of further testing or admission. They will be made aware of of the risk/benefits inherent in this decision they will be given the opportunity to voice understanding. Discharge Plan Triage Chief Complaint: Upper Extremity Injury ED Provider: Kota Isaac Dx/Rx/DC Orders Clinical Impression: Gout Instructions: ED Gout Prescriptions: New prednisone 20 mg tablet 40 mg PO DAILY Qty: 10 0RF No Action prednisone 20 mg tablet 40 mg PO DAILY 10 Days Qty: 20 0RF meloxicam 7.5 mg tablet 7.5 mg PO DAILY Qty: 20 0RF hydrocodone-acetaminophen [hydrocodone-acetaminophen] 5-325 mg tablet 1 tab PO Q4H PRN PRN (Reason: Pain) 2 Days Qty: 4 0RF prednisone 20 mg tablet 40 mg PO DAILY 7 Days Qty: 14 0RF Primary Care Provider: Kady Aguiar Referrals: Kady Aguiar MD [Primary Care Provider] - Ryanne Dumont MD [Med Staff - Force Dispatcher] - Activity Restrictions/Additional Instructions: Thank you for trusting us with your care today! Please take Tylenol (2 pills, 650 mg), ibuprofen (2 pills, 400 mg) every 6 hours as needed for pain and fever control. Please take prednisone as prescribed. Please return to the emergency department if your symptoms change or worsen. Please follow with your primary care physician for further outpatient evaluation and management. Disposition Disposition: Home, Self Care
[2023-05-15] MEDS: predniSONE 20 MG Tablet 40 MG PO (07:43)
== END 2023-05-15 07:45 | disposition home or self-care (01) ==
PROVIDERS: Emergency Provider Emergency Medicine; PCP Family Medicine; Visit Provider Emergency Medicine
DX: M10.9 Gout, unspecified (principal)
CPT/HCPCS: 99283

== ENCOUNTER 2023-06-08 09:10 | Emergency (ER) | payer MEDICAID, SELFPAY ==
[2023-06-08 09:12] VITALS: BP 173/93; PULSE 107; RESP 18; TEMP 36.1; O2SAT 97; BMI 32.8
--- NOTE | 2023-06-08 09:26 | EX.ED.DYSGE1 ---
HPI History of Present Illness Chief Complaint: Other, Pain/Inj Informant: patient Narrative Narrative: Increased swelling pain left digits 3 through 5 the last 2 days. History of similar states multiple times in the last 6 weeks last time 2 weeks ago seen in ED. Symptoms improved with prednisone. Denies fevers or chills. Previously had had pain in his lower extremities ankles and knees he states he seen rheumatology once however did not like the experience. Did not follow back up. He is trying to get in with [facility] rheumatology call last week and he will try again. No family history of rheumatoid arthritis. He does work both hands, denies any specific injuries. Prior similar symptoms: Yes PFSH [facility] Medical History Cataract Gout Home Medications prednisone 20 mg tablet 40 mg (2 x 20 mg) PO DAILY 10 days #20 tabs 04/21/23 [Rx Last Taken Unknown] hydrocodone-acetaminophen 5-325mg 5mg-325mg 1 tab PO Q4H PRN PRN Pain 2 days #4 TABLETS 04/28/23 [Rx Last Taken Unknown] meloxicam 7.5 mg tablet 7.5 mg PO DAILY #20 tabs 04/28/23 [Rx Last Taken Unknown] prednisone 20 mg tablet 40 mg (2 x 20 mg) PO DAILY 7 days #14 tabs 05/06/23 [Rx Last Taken Unknown] prednisone 20 mg tablet 40 mg (2 x 20 mg) PO DAILY #10 tabs 05/15/23 [Rx Last Taken Unknown] prednisone 20 mg tablet 60 mg (3 x 20 mg) PO DAILY #18 TABLETS 06/08/23 [Rx Last Taken Unknown] Allergy/AdvReac Type Severity Reaction Status Date / Time No Known Allergies Allergy Verified 06/08/23 09:11 Family History Mother Cancer Surgical History H/O eye surgery Social History household members: other Smoking Status: Never smoker substance use type: does not use ROS ROS ED Constitutional Constitutional ED: Denies chills, fever(s) or sweats Eyes Eyes: Denies change in vision ENT ENT ED: Denies dysphagia or sore throat Cardiovascular Cardiovascular: Denies chest pain, leg edema, palpitations or racing heartbeat Respiratory/Chest Respiratory/Chest: Denies cough, dyspnea or dyspnea on exertion Gastrointestinal Gastrointestinal: Denies abdominal pain, diarrhea, nausea or vomiting Genitourinary Genitourinary ED: Denies dysuria, hematuria or urinary frequency Musculoskeletal Musculoskeletal: Reports arthralgias and extremity pain; Denies back pain or neck pain Integumentary Denies rash or wounds Neurologic Neurologic: Denies headache(s), paresthesias or weakness EXAM Physical Exam Const Vital Signs: 06/08/23 09:12 Temperature 97 F L Temperature Source Temporal Pulse Rate 107 H Respiratory Rate 18 Blood Pressure 173/93 H Blood Pressure Mean 119 Pulse Ox 97 Oxygen Delivery Method Room Air Positive well nourished and well developed General Appearance ED: well developed and NAD HEENT Reports moist mucous membranes normocephalic and atraumatic Eyes PERRL, EOMs intact bilaterally and conjunctivae normal General Eye ED: Yes normal appearance of both eyes Neck no lymphadenopathy and supple General: Negative for tenderness Chest Wall Chest: Negative for tenderness Resp normal respiratory effort and normal air movement Effort and Inspection: symmetric chest movement; Negative for respiratory distress Cardio regular rate, regular rhythm and no murmurs Peripheral Pulses: pulses 2+ throughout GI normal to inspection, nondistended, normoactive bowel sounds and non-tender Palpation: Negative for guarding or rebound tenderness present Back/Spine no CVA tenderness and no thoracic nor lumbar tenderness Extremity Extremity Narrative: Left upper extremity no elbow or wrist tenderness. There is swelling to digits 3-5 no erythema pain with movement. Skin intact. No drainage. Cap refill less than 3 seconds. General Extremety ED: Negative for edema or tenderness General Extremity: Negative for edema Neuro oriented x3 and no sensory deficits noted Sensorium / Orientation: awake and alert Skin no rashes or lesions noted and no wounds MDM MDM MDM Narrative Medical decision making narrative: Interventions / MDM: Differential diagnosis: Arthralgia Diagnosis considered but do not suspect: Septic joint, no erythema or warmth. My EKG interpretation: N/A Imaging independently reviewed and interpreted by myself: N/A External documents reviewed: N/A Test considered but not ordered:N/A ED course: Patient nontoxic similar episodes in the past relieved with prednisone. Nontoxic. There is no warmth erythema concerns for septic joint. At previous lower extremity joint pains from history. Nonspecific arthralgia at this point. He is restarted on prednisone. He states the call [facility] again to try to get appointment for outpatient evaluation and further work-up. All questions were answered. Re-evaluation: stable Disposition discussed with patient/family/significant other: Patient Case discussed with consulting clinician: N/A This note was generated with [employer] dictation software. It may contain incorrect words, spelling, and punctuation that were not noted in checking the note before signing. Discharge Plan Triage Chief Complaint: Other, Pain/Inj ED Provider: Mayank Kent Dx/Rx/DC Orders Clinical Impression: Left hand pain, Arthralgia Instructions: ED Arthralgia Prescriptions: New prednisone 20 mg tablet 60 mg PO DAILY Qty: 18 0RF No Action prednisone 20 mg tablet 40 mg PO DAILY 10 Days Qty: 20 0RF meloxicam 7.5 mg tablet 7.5 mg PO DAILY Qty: 20 0RF hydrocodone-acetaminophen [hydrocodone-acetaminophen] 5-325 mg tablet 1 tab PO Q4H PRN PRN (Reason: Pain) 2 Days Qty: 4 0RF prednisone 20 mg tablet 40 mg PO DAILY 7 Days Qty: 14 0RF prednisone 20 mg tablet 40 mg PO DAILY Qty: 10 0RF Primary Care Provider: Kady Aguiar Referrals: Kady Aguiar MD [Primary Care Provider] - 3-5 Days Activity Restrictions/Additional Instructions: Follow-up with your doctor and work on your appointment with rheumatology at [facility]. Take the steroid as prescribed. Next dose tomorrow. Disposition Disposition: Home, Self Care
[2023-06-08] MEDS: predniSONE 20 MG Tablet 60 MG PO (09:36)
== END 2023-06-08 09:38 | disposition home or self-care (01) ==
LOC: ED 09:33
PROVIDERS: Emergency Provider Emergency Medicine; PCP Family Medicine; Visit Provider Emergency Medicine
DX: M79.604 Pain in right leg (principal); M79.642 Pain in left hand; M79.605 Pain in left leg; M10.9 Gout, unspecified
CPT/HCPCS: 99283

== ENCOUNTER 2023-07-29 13:17 | Emergency (ER) | payer SELFPAY ==
[2023-07-29 13:18] VITALS: BP 163/93; PULSE 107; RESP 18; TEMP 36.2; O2SAT 97; BMI 33.7
--- NOTE | 2023-07-29 13:28 | EDS_ITS ---
<Statement entered by Miriam Bonds MD - 07/29/23 15:16> I have personally performed a face to face assessment of the patient and have reviewed the PATRICIA Note. Patient seen and evaluated for left hand pain and swelling. This is a recurring problem for the patient. He notes increased swelling to the joints of his left hand, and specifically points out the PIP joint of his left fifth finger. No recent injury. Patient states that he is scheduled to see a geographic information system surveyor for possible autoimmune testing. Typically his symptoms improved with prednisone. Patient sitting upright in bed no acute distress. Left upper extremity examination feels mild tenderness to the left PIP joint. Mild edema is noted. Good cap refill and sensation. Slight decreased range of motion of the joint secondary to pain and swelling, but good range of motion is noted. Patient is had no injury I do not believe imaging studies are needed at this time. He will be given a burst of steroids and will follow-up with rheumatology as scheduled. HPI History of Present Illness Chief Complaint: Upper Extremity Injury Narrative Narrative: Patient is a 58-year-old male who presents to the ER often for gout, inflammation of his hands. Patient states of the last 2 days has been having some inflammation to his left fifth and fourth digit. Patient states that he has not been on prednisone for 2 months and has been doing better. Patient states that he thinks he needs prednisone, as well as a couple days off work. Patient denies any fever or chills. Patient states that overall he thinks this is moderate case of inflammation, he states its been worse in the past. He rates his pain at a 6 out of 10. [facility] Medical History Cataract Gout Home Medications prednisone 20 mg tablet 40 mg (2 x 20 mg) PO DAILY 10 days #20 tabs 04/21/23 [Rx Last Taken Unknown] hydrocodone-acetaminophen 5-325mg 5mg-325mg 1 tab PO Q4H PRN PRN Pain 2 days #4 TABLETS 04/28/23 [Rx Last Taken Unknown] meloxicam 7.5 mg tablet 7.5 mg PO DAILY #20 tabs 04/28/23 [Rx Last Taken Unknown] prednisone 20 mg tablet 40 mg (2 x 20 mg) PO DAILY 7 days #14 tabs 05/06/23 [Rx Last Taken Unknown] prednisone 20 mg tablet 40 mg (2 x 20 mg) PO DAILY #10 tabs 05/15/23 [Rx Last Taken Unknown] prednisone 20 mg tablet 60 mg (3 x 20 mg) PO DAILY #18 TABLETS 06/08/23 [Rx Last Taken Unknown] prednisone 50 mg tablet 50 mg PO DAILY #5 tabs 07/29/23 [Rx Last Taken Unknown] Allergy/AdvReac Type Severity Reaction Status Date / Time No Known Allergies Allergy Verified 07/29/23 13:29 Family History Mother Cancer Surgical History H/O eye surgery Social History household members: other Smoking Status: Never smoker substance use type: does not use ROS ROS ED ROS Narrative Constitutional: Negative for fever, chills, weight loss, weakness Eyes: Negative for vision loss, vision change, double vision ENT: Negative for any sore throat, ear pain, congestion Cardiovascular: Negative for any chest pain, tightness, palpitations Respiratory: Negative for any cough, sputum production, hemoptysis, dyspnea, dyspnea on exertion, orthopnea Gastrointestinal: Negative for any abdominal pain, nausea, vomiting, diarrhea, constipation, blood in stool, blood in vomit : Negative for any urinary frequency, dysuria, retention, blood in urine Muscle skeletal: Negative for any muscle joint pain, stiffness, myalgias, arthralgias, neck pain, back pain. Positive for left fifth and fourth finger edema, pain Neurological: Negative for any headache, syncope, numbness or tingling, dizziness Skin: Negative for any rashes, lumps, itching, abrasions, lacerations Psychiatric: Negative for any depression, anxiety, stress, suicidal ideation, homicidal ideation Hematologic: Negative for any easy bruising, excessive bruising, easy bleeding Allergies: Negative for any eczema, hives, rash EXAM Physical Exam Narrative Exam Narrative: Vital signs reviewed. Patient appears well patient looks nontoxic. Extremities: Patient's left hand does show some edema, slight erythema around the PIP joints of the fifth and fourth digit. Patient has minimal pain on palpation. Patient is difficult to move the fingers secondary to the swelling. He denies any fever or chills. Patient's remainder of his hand shows no cellulitis, no evidence of deep tissue infection. Patient has +2 radial pulse. Neuro: Cranial nerves II through XII intact, no focal neurological deficits. Skin: Clean dry and intact with no rash, purpura, petechiae, vesicles or pustules. Backs/flank: No CVA tenderness, no midline spinal tenderness, no deformity. Psych: Normal mood and affect. No SI, HI or acute psychosis. Const Vital Signs: 07/29/23 13:18 Temperature 97.1 F L Temperature Source Temporal Pulse Rate 107 H Respiratory Rate 18 Blood Pressure 163/93 H Blood Pressure Mean 116 Pulse Ox 97 Oxygen Delivery Method Room Air [facility] Treatment and Re-Evaluation Narrative: Patient appears generally well, patient appears nontoxic, vital signs are stable. Patient presents to the emergency department with swelling to the left hand. Patient states that this does happen often several times a year. Differential diagnosis include septic joint, tenosynovitis, arthritis, gout. Secondary to the patient's minimal pain, no fever or chills, there is no evidence of any infection. Patient is likely suffering from arthralgia, gout. Patient will be placed on prednisone. We will continue for total of 5 days. Patient will receive 3 days off of work to rest his hand. Patient will need to follow-up outpatient. Patient does have an appointment the [facility] however he has had an appointment before and continues to miss the appointments. Patient was educated regarding the importance of following up with a specialist. Patient was given return precautions. All questions answered. Discharge Plan Triage Chief Complaint: Upper Extremity Injury ED Midlevel Provider: Messi Garcia ED Provider: Miriam Bonds Dx/Rx/DC Orders Clinical Impression: Arthralgia, Gout Instructions: ED Arthralgia, ED Gout, ED Gout Diet Prescriptions: New prednisone 50 mg tablet 50 mg PO DAILY Qty: 5 0RF No Action prednisone 20 mg tablet 40 mg PO DAILY 10 Days Qty: 20 0RF meloxicam 7.5 mg tablet 7.5 mg PO DAILY Qty: 20 0RF hydrocodone-acetaminophen [hydrocodone-acetaminophen] 5-325 mg tablet 1 tab PO Q4H PRN PRN (Reason: Pain) 2 Days Qty: 4 0RF prednisone 20 mg tablet 40 mg PO DAILY 7 Days Qty: 14 0RF prednisone 20 mg tablet 40 mg PO DAILY Qty: 10 0RF prednisone 20 mg tablet 60 mg PO DAILY Qty: 18 0RF Stand Alone Forms: ED Work / School Excuse Primary Care Provider: Kady Aguiar Referrals: Kady Aguiar MD [Primary Care Provider] - Activity Restrictions/Additional Instructions: Take prednisone until finished. You need to follow-up with specialist. Disposition Disposition: Home, Self Care
[2023-07-29] MEDS: predniSONE 20 MG Tablet 60 MG PO (13:39)
== END 2023-07-29 13:56 | disposition home or self-care (01) ==
LOC: ED 13:54
PROVIDERS: Emergency Provider Emergency Medicine; PCP Family Medicine; Visit Provider Emergency Medicine
DX: M10.9 Gout, unspecified (principal)
CPT/HCPCS: 99283

== ENCOUNTER 2023-08-03 07:53 | Emergency (ER) | payer SELFPAY ==
[2023-08-03 07:54] VITALS: BP 142/96; PULSE 122; RESP 18; TEMP 36.3; O2SAT 100; BMI 35.2
[2023-08-03] MEDS: predniSONE 20 MG Tablet 60 MG PO (08:15)
--- NOTE | 2023-08-03 08:47 | EX.ED.UPPERE ---
HPI History of Present Illness Chief Complaint: Upper Extremity Injury Informant: patient Narrative Narrative: Presents with current nontraumatic swelling right middle finger. Last time few months ago. Has issues with left hand and knees in the past. He states he had a referral to [facility] however his car broke down and missed appointment. He is making another appointment. No fevers. No he has a ring on his right middle finger, he states has been there for 10 years. Denies paresthesias. Pain worse with movement improved with steroids in the past. Prior similar symptoms: Yes PFSH PFS Medical History Cataract Gout Home Medications prednisone 20 mg tablet 40 mg (2 x 20 mg) PO DAILY 10 days #20 tabs 04/21/23 [Rx Last Taken Unknown] hydrocodone-acetaminophen 5-325mg 5mg-325mg 1 tab PO Q4H PRN PRN Pain 2 days #4 TABLETS 04/28/23 [Rx Last Taken Unknown] meloxicam 7.5 mg tablet 7.5 mg PO DAILY #20 tabs 04/28/23 [Rx Last Taken Unknown] prednisone 20 mg tablet 40 mg (2 x 20 mg) PO DAILY 7 days #14 tabs 05/06/23 [Rx Last Taken Unknown] prednisone 20 mg tablet 40 mg (2 x 20 mg) PO DAILY #10 tabs 05/15/23 [Rx Last Taken Unknown] prednisone 20 mg tablet 60 mg (3 x 20 mg) PO DAILY #18 TABLETS 06/08/23 [Rx Last Taken Unknown] prednisone 50 mg tablet 50 mg PO DAILY #5 tabs 07/29/23 [Rx Last Taken Unknown] prednisone 20 mg tablet 60 mg (3 x 20 mg) PO DAILY #18 TABLETS 08/03/23 [Rx Last Taken Unknown] Allergy/AdvReac Type Severity Reaction Status Date / Time No Known Allergies Allergy Verified 08/03/23 07:57 Family History Mother Cancer Surgical History H/O eye surgery Social History household members: other Smoking Status: Never smoker substance use type: does not use ROS ROS ED Constitutional Constitutional ED: Denies chills, fever(s) or sweats Eyes Eyes: Denies change in vision ENT ENT ED: Denies dysphagia or sore throat Cardiovascular Cardiovascular: Denies chest pain, leg edema, palpitations or racing heartbeat Respiratory/Chest Respiratory/Chest: Denies cough, dyspnea or dyspnea on exertion Gastrointestinal Gastrointestinal: Denies abdominal pain, diarrhea, nausea or vomiting Genitourinary Genitourinary ED: Denies dysuria, hematuria or urinary frequency Musculoskeletal Musculoskeletal: Reports extremity pain; Denies back pain or neck pain Integumentary Denies rash or wounds Neurologic Neurologic: Denies headache(s), paresthesias or weakness EXAM Physical Exam Const Vital Signs: 08/03/23 07:54 Temperature 97.3 F L Temperature Source Temporal Pulse Rate 122 H Respiratory Rate 18 Blood Pressure 142/96 H Blood Pressure Mean 111 Pulse Ox 100 Oxygen Delivery Method Room Air Positive well nourished and well developed General Appearance ED: well developed and NAD HEENT Reports moist mucous membranes normocephalic and atraumatic Eyes PERRL, EOMs intact bilaterally and conjunctivae normal General Eye ED: Yes normal appearance of both eyes Neck no lymphadenopathy and supple General: Negative for tenderness Chest Wall Chest: Negative for tenderness Resp normal respiratory effort and normal air movement Effort and Inspection: symmetric chest movement; Negative for respiratory distress Cardio regular rhythm and no murmurs Rate: tachycardic Peripheral Pulses: pulses 2+ throughout GI normal to inspection, nondistended, normoactive bowel sounds and non-tender Palpation: Negative for guarding or rebound tenderness present Back/Spine no CVA tenderness and no thoracic nor lumbar tenderness Extremity Extremity Narrative: Right upper extremity: Hand with swelling on the middle finger there is a ring on the proximal phalanx. Cap refills intact. Pain with movement the PIP joint. No fluctuance no drainage. General Extremety ED: Negative for edema or tenderness General Extremity: Negative for edema Neuro oriented x3 and no sensory deficits noted Sensorium / Orientation: awake and alert Skin no rashes or lesions noted and no wounds MDM MDM MDM Narrative Medical decision making narrative: Interventions / MDM: Differential diagnosis: Arthralgia Diagnosis considered but do not suspect: Septic joint, however chronic recurring symptoms. My EKG interpretation: N/A Imaging independently reviewed and interpreted by myself: N/A External documents reviewed: N/A Test considered but not ordered:N/A ED course: Patient recurrent swelling improved with steroids in the past he started on prednisone. Discussed with patient with his ring proximal swollen joint he has good cap refills recommended removal of this ring to prevent tourniquet if swelling worsens. This was prepped, however upon presentation to remove he states he did not want this done as it got better in the past. He understands the risks for leaving on and finger worsening later. Prescription for additional 6 days of steroids sent to his pharmacy. He will call for follow-up as an outpatient as planned. Re-evaluation: stable Disposition discussed with patient/family/significant other: Patient Case discussed with consulting clinician: N/A This note was generated with [employer] dictation software. It may contain incorrect words, spelling, and punctuation that were not noted in checking the note before signing. Discharge Plan Triage Chief Complaint: Upper Extremity Injury Other Complaint: Lower Extremity Injury ED Provider: Mayank Kent Dx/Rx/DC Orders Clinical Impression: Arthralgia, Finger joint swelling Instructions: ED Arthralgia Prescriptions: New prednisone 20 mg tablet 60 mg PO DAILY Qty: 18 0RF No Action prednisone 20 mg tablet 40 mg PO DAILY 10 Days Qty: 20 0RF meloxicam 7.5 mg tablet 7.5 mg PO DAILY Qty: 20 0RF hydrocodone-acetaminophen [hydrocodone-acetaminophen] 5-325 mg tablet 1 tab PO Q4H PRN PRN (Reason: Pain) 2 Days Qty: 4 0RF prednisone 20 mg tablet 40 mg PO DAILY 7 Days Qty: 14 0RF prednisone 20 mg tablet 40 mg PO DAILY Qty: 10 0RF prednisone 20 mg tablet 60 mg PO DAILY Qty: 18 0RF prednisone 50 mg tablet 50 mg PO DAILY Qty: 5 0RF Stand Alone Forms: ED Work / School Excuse Primary Care Provider: Kady Aguiar Referrals: Kady Aguiar MD [Primary Care Provider] - Activity Restrictions/Additional Instructions: Recurrent swelling right middle finger. Take steroids as prescribed. You declined attempt to remove your ring from your finger. You understand the risks. Return if worsening symptoms. Disposition Disposition: Home, Self Care
[2023-08-03 08:49] VITALS: BP 124/69; PULSE 72; RESP 15; O2SAT 98
== END 2023-08-03 08:50 | disposition home or self-care (01) ==
PROVIDERS: Emergency Provider Emergency Medicine; PCP Family Medicine; Visit Provider Emergency Medicine
DX: M25.48 Effusion, other site (principal); M25.541 Pain in joints of right hand
CPT/HCPCS: 99283

== ENCOUNTER 2023-11-26 05:44 | Observation (INO) | payer MEDICAID, SELFPAY ==
[2023-11-26] VITALS (10 sets, daily range): BP systolic 134–194; BP diastolic 74–140; PULSE 74–123; RESP 16–18; TEMP 36.7–37.6; O2SAT 95–99; BMI 31.4; BMI 30.1
--- OUTSIDE RECORDS SUMMARY | 2023-11-26 06:29 | XMS RPT_ITS | CCD ---
Author Name Unknown Address [address] [place] [address] Organization [facility] Care Team Providers Care Teacher Aide Clerical Name Role Phone Keyana Abebe Unavailable Unavaila ble Abebe, Keyana Reddy Unavailable Unavaila ble Jolliff, Kady Ashok Unavailable Unavailable Abebe, Keyana Reddy Unavailable Unavaila ble Abebe, Keyana Reddy Unavailable Unavaila ble Jolliff, Kady Ashok Unavailable Unavailable Jolliff, Kady Ashok Unavailable Unavailable Abebe, Keyana Brown Unavailable Unavaila ble Abebe, Keyana Brown Unavailable Unavaila ble PCP, Pt states no Unavailable Unavailable Jolliff, Kady Ashok Unavailable Unavailable Tatiana Kady Ashok Primary Care Provider TATIANA KADY ASHOK Primary Care Unavailable JOLLJENNIFER KADY ASHOK Primary Care Unavailable Medications Completed/Discontinued Medications Medication Drug Class(es) Dates Sig (Normalized) Sig (Original) amLODIPine (1 source) Dihydropyridine Calcium [employer] [place] AMLODIPINE BESYLATE (AMLODIPINE ORAL) Take by mouth. 0 Active Problems Problem Classification Problem Date Documented Da te Episodic/Chronic Residual codes; unclassified (1 source) Pain; Translations: [Pain, unspecified] Episodic Unclassified (1 source) Gout, unspecified / M10.9(ICD-10) Onset: 08-10-2017 Unclassified (1 source) Pain in unspecified joint / M25.50(ICD-10) Onset: 07-20-2017 Results Test Name Value Interpretation Reference Range Facil ity Vital Signs Date Time Vital Sign Value Performing Clinician Faci litzahra 04-28-2023 14:04-0400 Body temperature 98.2 [degF] Niyah Bui APRN.[employer]OR [employer] Work Phone: [facility] 04-28-2023 14:04-0400 Body weight 118.03 kg Niyah Bui APRN.INSPECTOR [employer] Work Phone: [facility] 04-28-2023 14:04-0400 Diastolic blood pressure 88 mm[Hg] Niyah Bui APRN.INS[employer]OR [employer] Work Phone: [facility] 04-28-2023 14:04-0400 Heart rate 98 /min Niyah Bui APRN.INS[employer]OR [employer] Work Phone: [facility] 04-28-2023 14:04-0400 Respiratory rate 18 /min Niyah Bui APRN.[employer]OR [employer] Work Phone: [facility] 04-28-2023 14:04-0400 SaO2% (BldA) [Mass fraction] 97 % Niyah Bui APRN.[employer]OR [employer] Work Phone: [facility] 04-28-2023 14:04-0400 Systolic blood pressure 146 mm[Hg] Niyah Bui APRN.INSPECTOR [employer] Work Phone: [facility] Encounters Encounter Date Encounter Type Care Provider Facility Start: 04-28-2023 End: 04-28-2023 [facility] Facility:[facility] Start: 04-28-2023 End: 04-28-2023 Patient encounter procedure Niyah Bui APRN.[employer]OR [employer] Work Phone: [facility] Procedures Date Procedure Procedure Detail Performing Clinician Start: 02-04-2015 Colonoscopy Niyah Bui APRN.INS[employer]OR [employer] Work Phone: Plan of Treatment Date Care Activity Detail Author Start: 02-04-2025 Colonoscopy COLONOSCOPY [facility] Start: 02-04-2025 COLORECTAL CANCER SCREENING COLORECTAL CANCER SCREENING [facility] Start: 07-30-2023 Influenza vaccination INFLUENZA (Sea son Ended) [facility] Start: 11-29-2022 DEPRESSION ASSESSMENT DEPRESSION ASS ESSMENT [facility] Start: 2018 PROSTATE CANCER SCRE ENING DISCUSSION PROSTATE CANCER SCREENING DISCUSSION [facility] Start: 2013 SHINGRIX VACCINE (1 of 2) SHINGRIX V ACCINE (1 of 2) [facility] Start: 2008 COLOGUARD (FIT-DNA) COLOGUARD (FIT-D NA) [facility] Start: [address] COLONOGRAPHY [facility] Start: 2008 DIABETES SCREEN DIABETES SCREEN [facility] Start: 2008 FECAL OCCULT BLOOD FECAL OCCULT BLOO D [facility] Start: 2008 SIGMOIDOSCOPY SIGMOIDOSCOPY [facility] Start: 1998 LIPID SCREEN LIPID SCREEN [facility] Start: 1982 Urine microalbumin profile DTAP,TDAP ,TD (1 - Tdap) [facility] Start: 1981 HEPATITIS C SCREENING HEPATITIS C SC REENING [facility] Start: 1981 HIV SCREENING HIV SCREENING [facility] Start: 1963 COVID-19 VACCINE (#1) COVID-19 VACCI NE (#1) [facility] Payers Date Payer Category Payer Medicaid [employer] [facility] MEDICAID [id number] 2022-Present [phone] [address] [place] [address] Medicaid [id number] 2022 Medicaid [id number] Unknown [id number] Social History Date Type Detail Facility Start: [facility]-20[facility]23 [facility] Work Phone: History of tobacco use Current smoker [facility] Work Phone: Start: 04-20-2023 Tobacco use and exposure Smokeless tobacco non-user [facility] Work Phone: Start: 04-28-2023 Alcohol intake Current drinke r of alcohol (finding) [facility] Start: 02-04-2015 Alcohol Comment occasional use [facility] Start: 1965 Sex Assigned At Not on file C [facility] Progress note 04-28-2023 Note Date & Type Note Facility 04-28-2023 Note HNO ID: [id number] Author: Niyah Bui APRN.INS[employer]OR [employer] Service: ? Author Type: Nurse Practitioner Type: Progress Notes Filed: 04/28/2023 2:17 PM Note Text: Patient came in with complaints of severe left hand pain. Patient says has been going on for 2 weeks. Patient says is getting worse and worse. Patient cannot bend fingers or make a fist. Patient says he is a 10 out of 10. Upon barely touching patient's hand he screamed at the top of his lungs. Patient is being sent to the emergency room for full evaluation due to the amount of pain and lack of range of motion in his hand. Patient was okay with this care plan. [facility] History of Present illness Narrative 04-28-2023 Niyah Bui APRN.ANTHONY - 04/28/2023 2:03 PM EDT Note Date & Type Note Facility 04-28-2023 History of Presen t illness Narrative Patient came in with complaints of severe left hand pain. Patient says has been going on for 2 weeks. Patient says is getting worse and worse. Patient cannot bend fingers or make a fist. Patient says he is a 10 out of 10. Upon barely touching patient's hand he screamed at the top of his lungs. Patient is being sent to the emergency room for full evaluation due to the amount of pain and lack of range of motion in his hand. Patient was okay with this care plan. documented in this encounter [facility] Progress note 04-20-2023 Note Date & Type Note Facility 04-20-2023 Note HNO ID: [id number] Author: Coco Stanley APRN.ANTHONY Service: ? Author Type: Nurse Practitioner Type: Progress Notes Filed: 04/20/2023 6:46 PM Note Text: 57 year old male presents with complaints of left hand pain. States that it has been a week. He went to the ED. Was given Prednisone and told it was gout. States he took the Prednisone and it DID NOT help, citing similar in past has helped. He has generalized swelling of 3 and 4th finger. Unable to make a fist. Left hand dominant. Discussed with patient concerns for flexor tenosynovitis, hand cellulitis, gout. However, given limited resources referred to ED. [facility] Evaluation note Note Date & Type Note Facility documented in this encounter [facility] Summary Purpose Family History No Family History Records FoundNo Family History Records Found Advance Directives No Advanced Directives Records FoundNo Advanced Directives Records Found Additional Source Comments (unrecognized sect ion and content) No Status Records FoundNo Status Records Found INFORMATION SOURCE (unrecogn ized section and content) DATE CREATED AUTHOR AUTHOR'S ORGANIZ ATION 05/09/2023 [facility] Source Comments (unrecognize d section and content) In the event this informatio n is protected by the Federal Confidentiality of Alcohol and Drug Abuse Patient Records regulations: The Federal rules restrict any use of the information to criminally investigate or prosecute any alcohol or drug abuse patient.[facility] Reason for Visit (unrecogniz ed section and content) Care Teams (unrecognized sec tion and content) FOR RECORDS PERTAINING TO PATIENTS WHO ARE OR HAVE BEEN ENROLLED IN A CHEMICAL DEPENDENCY/SUBSTANCEABUSE PROGRAM, SOME INFORMATION MAY BE OMITTED. This clinical summary was aggregated from multiple sources. Caution should be exercised in using it in the provision of clinical care. This summary normalizes information from multiple sources, and as a consequence, information in this document may materially change the coding, format and clinical context of patient data. In addition, data may be omitted in some cases. CLINICAL DECISIONS SHOULD BE BASED ON THE PRIMARY CLINICAL RECORDS. [facility] [employer] [facility]. provides no warranty or guarantee of the accuracy or completeness of information in this document.
--- NOTE | 2023-11-26 06:47 | EX.ED.DYSGE1 ---
HPI History of Present Illness Chief Complaint: Weakness Narrative Narrative: 58-year-old male presenting with weakness. He states it is all secondary to bilateral knee pain. He denies any trauma. He states he has a history of gout but does not believe he is having a gout flare in his either of his legs. He states that his knees. He states is been ongoing for 4 days and his pain is so severe he is been unable to walk. He states that he is only urinated twice in 4 days and is only had 1 bowel movement. He states he has been surviving off of canned peaches at the bedside. He states that when he had to get up and use the restroom he crawled on his painful knees to the bathroom. Patient is annoyed at both nursing and myself asking him questions about how he ate and drank while he laid in bed for 4 days. I explained to them that I have to ask questions in order to get the right workup. He states he does not understand why everybody is asking him so many questions. I explained to him that he says he has been in bed for 4-day does not had not had a drink but has been living off canned peaches. It is also concerning if he only made and voided twice in the last couple of days so we are trying to get his input and output. He then asked for a glass of water. Patient states at that point that he was able to ambulate to the EMS cot and get over the pain for short time. Patient states he has no other medical problems other than gout. [facility] Medical History Cataract Gout Home Medications prednisone 20 mg tablet 40 mg (2 x 20 mg) PO DAILY 10 days #20 tabs 04/21/23 [Rx Last Taken Unknown] hydrocodone-acetaminophen 5-325mg 5mg-325mg 1 tab PO Q4H PRN PRN Pain 2 days #4 TABLETS 04/28/23 [Rx Last Taken Unknown] meloxicam 7.5 mg tablet 7.5 mg PO DAILY #20 tabs 04/28/23 [Rx Last Taken Unknown] prednisone 20 mg tablet 40 mg (2 x 20 mg) PO DAILY 7 days #14 tabs 05/06/23 [Rx Last Taken Unknown] prednisone 20 mg tablet 40 mg (2 x 20 mg) PO DAILY #10 tabs 05/15/23 [Rx Last Taken Unknown] prednisone 20 mg tablet 60 mg (3 x 20 mg) PO DAILY #18 TABLETS 06/08/23 [Rx Last Taken Unknown] prednisone 50 mg tablet 50 mg PO DAILY #5 tabs 07/29/23 [Rx Last Taken Unknown] prednisone 20 mg tablet 60 mg (3 x 20 mg) PO DAILY #18 TABLETS 08/03/23 [Rx Last Taken Unknown] Allergy/AdvReac Type Severity Reaction Status Date / Time No Known Allergies Allergy Verified 11/26/23 05:45 Family History Mother Cancer Surgical History H/O eye surgery Social History household members: other Smoking Status: Never smoker substance use type: does not use ROS ROS ED Constitutional Constitutional ED: Denies chills, fever(s) or sweats Eyes Eyes: Denies change in vision ENT ENT ED: Denies dysphagia or sore throat Cardiovascular Cardiovascular: Denies chest pain, leg edema, palpitations or racing heartbeat Respiratory/Chest Respiratory/Chest: Denies cough, dyspnea or dyspnea on exertion Gastrointestinal Gastrointestinal: Denies abdominal pain, diarrhea, nausea or vomiting Genitourinary Genitourinary ED: Denies dysuria, hematuria or urinary frequency Musculoskeletal Musculoskeletal: Reports other Details: Bilateral knee pain ; Denies back pain or neck pain Integumentary Reports other Details: Superficial abrasion to the proximal right calf ; Denies rash or wounds Neurologic Neurologic: Denies headache(s), paresthesias or weakness Psychiatric Psychiatric: Denies anxiety or depression EXAM Physical Exam Const Vital Signs: 11/26/23 05:45 11/26/23 05:48 11/26/23 05:48 Temperature 99.7 F H Temperature Source Temporal Pulse Rate 123 H Respiratory Rate 16 Respiratory Effort Normal Respiratory Pattern Normal Blood Pressure 187/140 H 179/113 H Blood Pressure Mean 155 135 Pulse Ox 98 Positive well nourished and well developed General Appearance ED: well developed and NAD HEENT Reports moist mucous membranes Negative for trauma Eyes PERRL and EOMs intact bilaterally Chest Wall inspection of chest normal Resp normal respiratory effort Cardio regular rate and regular rhythm Extremity Extremity Narrative: There is tenderness to palpation of the right knee. I found no evidence of ligamentous laxity, edema, erythema, warmth. Patient unable to extend the knee under his own strength. The left knee is not tender to palpation and I was able to palpate this while evaluating the right knee and with distraction there is no pain. Individually he states is painful all over when I evaluated. Again there is no evidence of ligamentous laxity, edema, erythema, warmth. On the right leg there appears to be a superficial abrasion on the proximal calf medially Neuro oriented x3 and CN's II-XII intact bilaterally Sensorium / Orientation: alert Motor Exam: general weakness Psych mental status grossly normal Skin Skin Narrative: As noted above MDM MDM MDM Narrative Medical decision making narrative: Patient presenting for evaluation of general weakness. He states his bilateral knees hurt so bad he has been unable to walk. He did however state that he was able to crawl on his painful knees to the bathroom and he is only urinated twice and defecated once in the last 4 days. Patient does however states he was able to get up and walk to the EMS cot when EMS arrived. It is unclear why he cannot even lift his leg on examination since he was able to ambulate just a few minutes ago. Externally there is no visible signs of infection, septic knee joint, edema, erythema, trauma. There is no pain with distraction. Patient is a little tachycardic and a little hypertensive. He denies any other symptoms other than painful knees and weakness. Patient also states that he has been living on canned peaches which she has been at the bedside. I did ask him when he had a occasion to go to the restroom that he drink some water while he was in there and the patient will not answer me about this question. Patient is very agitated that he has to answer questions about why he has not been out of bed. I did genetic counselor him again that we are just trying to get inputs and outputs to try to determine if he is dehydrated or if he is malnourished. Nursing also tells me that prior to my going into the room to try to ask similar basic questions and the patient told him to get out of the room he will wait for the doctor. Differential includes dehydration, electrolyte abnormalities, rhabdomyolysis, renal failure, gout. CBC was obtained to assess white blood cell count, hemoglobin, platelets. CMP to assess liver function, renal function, electrolytes. CPK to assess for rhabdomyolysis. Urinalysis to assess for UTI. Bilateral knee x-rays were obtained. Patient was given a liter of normal saline and I did give him a dose of Toradol for his knee pain. Patient states he currently cannot get up and walk. I reviewed bilateral knee x-rays and I do not see an evidence of acute findings. I am still waiting for radiology to interpret these. CBC is unremarkable. CPK is normal. Creatinine is elevated today at 2.00 and this does technically meet criteria for MARLEY. Patient was given another second liter of normal saline. Patient still stating that he cannot get up and walk and he wants to be admitted secondary to this. I discussed this with the hospitalist at 8:35 AM. He states he does not believe the patient needs to be admitted and recommended that I get the manager culture involved. There is no manager culture here as it is 8:35 in the morning and nobody will be around till 10 PM. I will sign this out to the incoming ED physician for monitoring until manager culture can be consulted. Impression: 1. Acute kidney injury 2. Debility 3. Bilateral knee pain Lab Data Attestation: I reviewed the patient's lab results. Labs: Laboratory Results - last 24 hr 11/26/23 06:40 WBC 10.1 RBC 5.13 Hgb 16.0 Hct 47.9 MCV 93.4 MCH 31.2 MCHC 33.4 RDW Std Deviation 44.3 H RDW Coeff of May 12.9 Plt Count 432 MPV 10.2 Immature Gran % (Auto) 1.200 H Neut % (Auto) 67.6 Lymph % (Auto) 19.9 [place] % (Auto) 10.4 H Eos % (Auto) 0.5 Baso % (Auto) 0.4 Absolute Neuts (auto) 6.8 Absolute Lymphs (auto) 2.00 Nucleated RBC % 0 Sodium 136 Potassium 3.8 Chloride 104 Carbon Dioxide 20.0 L Anion Gap 12 BUN 35 H Creatinine 2.00 H Estim Creat Clear Calc 46.94 Est GFR (MDRD) Af Amer 44 L Est GFR (MDRD) Non-Af 36 L BUN/Creatinine Ratio 17.5 Glucose 116 H Calcium 9.7 Total Bilirubin 0.70 AST 22 ALT 24 Alkaline Phosphatase 103 Total Creatine Kinase 126 Total Protein 9.2 H Albumin 3.1 L Globulin 6.1 H Albumin/Globulin Ratio 0.5 L Discharge Plan Triage Chief Complaint: Weakness ED Provider: Rei German Dx/Rx/DC Orders Prescriptions: No Action prednisone 20 mg tablet 40 mg PO DAILY 10 Days Qty: 20 0RF meloxicam 7.5 mg tablet 7.5 mg PO DAILY Qty: 20 0RF hydrocodone-acetaminophen [hydrocodone-acetaminophen] 5-325 mg tablet 1 tab PO Q4H PRN PRN (Reason: Pain) 2 Days Qty: 4 0RF prednisone 20 mg tablet 40 mg PO DAILY 7 Days Qty: 14 0RF prednisone 20 mg tablet 40 mg PO DAILY Qty: 10 0RF prednisone 20 mg tablet 60 mg PO DAILY Qty: 18 0RF prednisone 20 mg tablet 60 mg PO DAILY Qty: 18 0RF prednisone 50 mg tablet 50 mg PO DAILY Qty: 5 0RF Primary Care Provider: Kady Aguiar Referrals: Kady Aguiar MD [Primary Care Provider] -
[2023-11-26] MEDS: Ketorolac 15 MG/ML Vial IV (06:59)
[2023-11-26] MEDS: 0.9% Normal Saline (1000mL) 1,000 ML 999 ML IV ×2 (06:59→07:45)
[2023-11-26 07:09] LABS: ALB/GLOB Ratio 0.5 RATIO (0.9-2.4); AST(SGOT) 22 U/L (15-37); Alanine Aminotransfer ALT/SGPT 24 U/L (16-61); Albumin, Serum 3.1 g/dL (3.2-5.0); Alkaline Phosphatase 103 U/L (45-117); Anion Gap 12 (5-15); BUN 35 mg/dL (7-18); BUN/Creat Ratio 17.5 RATIO (10-20); CPK Total, Creatine Kinase 126 U/L (39-308); Calcium,Total 9.7 mg/dL (8.5-10.1); Chloride 104 mmol/L (98-107); EST Glomerular Filtration Rate 36 mL/min (>60); Est Glom Filt Rate - Afr Amer 44 mL/min (>60); Estimated Creatinine Clearance 46.94 ml/min; Globulin 6.1 g/dL (2.2-4.2); Glucose 116 mg/dL (74-106); Potassium 3.8 mmol/L (3.5-5.1); Protein, Total 9.2 g/dL (6.4-8.2); Sodium Level 136 mmol/L (136-145)
--- NOTE | 2023-11-26 07:25 | RAD_ITS ---
INDICATION: pain EXAMINATION/TECHNIQUE: X-RAY - RIGHT XR Knee 1 or 2 Views 2 VIEWS COMPARISON: Prior study dated: 11/20/2018. FINDINGS: SOFT TISSUES: No soft tissue swelling or gas. No radiopaque foreign body. BONES/JOINTS: No acute fracture or subluxation.. Normal alignment. Mild narrowing of the lateral joint compartment. Trace of joint effusion. No sclerotic or destructive changes observed. RAD/Knee 1 or 2 Views IMPRESSION: No evidence of acute fracture. Electronically Signed: Ezio Pickard MD at 8:38 EST ,
--- NOTE | 2023-11-26 07:25 | RAD_ITS ---
INDICATION: pain EXAMINATION/TECHNIQUE: X-RAY - LEFT XR Knee 1 or 2 Views 2 VIEWS COMPARISON: No relevant prior comparison study available FINDINGS: SOFT TISSUES: No soft tissue swelling or gas. No radiopaque foreign body. BONES/JOINTS: No acute fracture or subluxation.. Normal alignment. Mild narrowing of the lateral joint compartment. Small effusion in the suprapatellar joint space. No sclerotic or destructive changes observed. RAD/Knee 1 or 2 Views IMPRESSION: No evidence of acute osseous changes. Small joint effusion. Electronically Signed: Ezio Pickard MD at 8:51 EST ,
[2023-11-26 07:28] LABS: Absolute Neutrophil Count 6.8 X10^3/uL (2.0-7.7); Basophil# 0.04 X10^3/uL; Basophil% 0.4 % (0-1); Eosinophil# 0.05 X10^3/uL; Eosinophils% 0.5 % (0-5); Hematocrit 47.9 % (40-54); Lymphocyte % 19.9 % (19-41); Mean Corp Hgb Conc 33.4 g/dL (32-36); Mean Corpuscular Hgb 31.2 pg (27.0-32.0); Mean Corpuscular Volume 93.4 fL (80-94); Mean Platelet Vol. 10.2 fl (6.2-12.0); Monocyte# 1.05 X10^3/uL; Monocyte% 10.4 % (0-10); NRBC Flagged by Analyzer 0 % (0-5); Neutrophil # 6.81 X10^3/uL (2.7-7.7); Neutrophil % 67.6 % (47-70); Platelet Count 432 K/mm3 (150-450); RBC Distribution Width CV 12.9 % (11.6-14.6); RBC Distribution Width SD 44.3 fl (35.1-43.9); Red Blood Count 5.13 M/mm3 (4.6-6.2); White Blood Count 10.1 K/mm3 (4.4-11.0)
[2023-11-26 08:20] LABS: Bacteria 0 SEEN /hpf (None Seen); Mucous, Urine 0 SEEN /hpf (<or=2+)
[2023-11-26 08:37] LABS: Color, Urine Yellow (Yellow); Glucose, Dipstick Normal (Normal); Ketone-Dipstick 15 mg/dl (Negative); Leukocyte Esterase-Dipstick 25 /ul (Negative); Nitrite-Dipstick Negative (Negative); Occult Blood-Urine 10 /ul (Negative); Protein-Dipstick 30 mg/dl (Negative); Specific Gravity, Urine 1.025 (1.002-1.030); Urine Bilirubin Dipstick Negative (Negative); Urine Clarity Clear (Clear); Urine Urobilinogen 4 mg/dl (Normal)
[2023-11-26] MEDS: Ondansetron 4 MG/2 ML Vial IV (08:42)
[2023-11-26] MEDS: Morphine 4 MG/ML Syringe IV (08:42)
[2023-11-26 08:53] LABS: Red Blood Cells-Urine 0-5 SEEN /hpf (0-5); Squamous Epithelial Cells - UA 0-5 SEEN /hpf (0-5); White Blood Cells 0-5 SEEN /hpf (0-5)
--- NOTE | 2023-11-26 11:00 | CM.ED ---
Social Work Notified by ER staff that the hospitalist requested social work to see patient while in the emergency room. Spoke with Dr. German and ER nursing, as well as completed a brief chart review. Noted that patient has had complaints of not being able to walk for the last 5 days, has had little to drink, and has only been eating canned peaches. Met with patient in emergency department room, introducing to self and social work role. Patient pleasant and agreeable to speak with social media marketing specialist. Patient reports he came to the hospital because has been unable to walk, concerned about dehydration, and general ability to care for self due to inability to get around or properly take care of his fluid and nutrition. Patient reports last Wednesday was taking a walk to go get something to drink, and it was raining and cold outside, wearing jeans with holes in the knee. Patient reports after this outside excursion is when he became unable to walk due to the pain in his knees. Patient reports has never experienced anything like this before. Patient is adamant that does not feel he can return home in the current state and feels to need just a day or 2 in the hospital to recover, and get properly hydrated again. Through conversation, patient reported to live by himself. Reports housing is stable and denies any concerns with the environment itself or the ability to pay his bills. Patient reports that he does not currently drive and uses taxis, or walks for transportation. Reports awareness of transportation through [facility] to medical appointments. Reports to have a PCP. Patient reports to get about $300 a month and food stamps and denies any concerns with running out of food or being able to purchase food. Patient denies any personal safety concerns regarding physical safety, verbal or emotional safety. Patient reported, repeatedly, that would never happen regarding anybody abusing or threatening the patient. Patient reports to have friends but none to the point where they could come and stay at the house and assist. Patient does have a brother who lives in [place], and really no other family around that would be able to assist the patient. This inspector automatic typewriter explored whether patient feels would need to go to a longterm, and patient was adamant that would not want any type of placement and hopes to be able to go home in the next 1 to 2 days. Patient states that does not like the hospital, would prefer not to be here. Patient was agreeable to try to walk with nursing staff. Updated nursing. Checked back in with nursing after her attempt to walk, and this inspector automatic typewriter was informed that the patient did not do well. This inspector automatic typewriter updated Dr. Tafoya of patient's limited support system, as well as presentation in the emergency department with limited ability to walk or get around. Updated physician that patient is not interested in longterm, and expresses hope for this to be a very short stay. -JAYLA Fulton, [employer] *This note was generated with [employer] dictation software. It may contain incorrect words, spelling, and punctuation that were not noted in review of the chart prior to signing*
--- NOTE | 2023-11-26 11:13 | ED.RN ---
Tried to walk with assistance. Did not make it out of the room. I had to hold most of his weight. He said balance was his issue. Also mentioned pain in the right ankle.
--- NOTE | 2023-11-26 11:26 | HP.PCM_ITS ---
HPI - General General Date of Admission: 11/26/23 Date of Service: 11/26/23 Chief Complaint: weakness and debility HPI Narrative AMELIA WEST, is a 58 M with a past medical history as outlined who presents via the ED on 11/26/2023 with a complaint of weakness and debility as well as bilateral knee pain. Patient said he had been having pain in his knees for about 4 days now and could not ambulate. He had pretty much been lying in bed all 4 days. He said he thought it would get better but his symptoms did not improve so he called the EMS today. He denied any trauma to his knees, any frequent falls, any dizziness or lightheadedness, any fever or chills or any other symptoms. He does admit to a history of gout as far as he knows he does not have arthritis. Review of systems otherwise negative. At time of review, vitals were blood pressure 159/96, respiratory rate of 16 and pulse rate of 74. Temperature was initially 99.7 when he came into the ED but went down to 98.3 Fahrenheit. He was saturating at 99% on room air. CBC was unremarkable. BMP shows sodium of 136 with creatinine of 2. Urinalysis showed no evidence of UTI. X-ray of the left knee showed a small joint effusion but no evidence of acute osseous changes and x-ray of the right knee showed no acute pathology. He is evaluated to evaluate for debility due to bilateral knee pain. [facility] Medical History Cataract Gout Home Medications prednisone 20 mg tablet 40 mg (2 x 20 mg) PO DAILY 10 days #20 tabs 04/21/23 [Rx Last Taken Unknown] hydrocodone-acetaminophen 5-325mg 5mg-325mg 1 tab PO Q4H PRN PRN Pain 2 days #4 TABLETS 04/28/23 [Rx Last Taken Unknown] meloxicam 7.5 mg tablet 7.5 mg PO DAILY #20 tabs 04/28/23 [Rx Last Taken Unknown] prednisone 20 mg tablet 40 mg (2 x 20 mg) PO DAILY 7 days #14 tabs 05/06/23 [Rx Last Taken Unknown] prednisone 20 mg tablet 40 mg (2 x 20 mg) PO DAILY #10 tabs 05/15/23 [Rx Last Taken Unknown] prednisone 20 mg tablet 60 mg (3 x 20 mg) PO DAILY #18 TABLETS 06/08/23 [Rx Last Taken Unknown] prednisone 50 mg tablet 50 mg PO DAILY #5 tabs 07/29/23 [Rx Last Taken Unknown] prednisone 20 mg tablet 60 mg (3 x 20 mg) PO DAILY #18 TABLETS 08/03/23 [Rx Last Taken Unknown] allopurinol 100 mg tablet 100 mg PO DAILY gout 11/26/23 [History Last Taken Unknown] Allergy/AdvReac Type Severity Reaction Status Date / Time No Known Allergies Allergy Verified 11/26/23 05:45 Family History Mother Cancer Surgical History H/O eye surgery Social History household members: other Smoking Status: Never smoker substance use type: does not use ROS Constitutional Constitutional: Reports malaise and weakness; Denies anorexia, chills, fatigue or fever(s) Eyes Eyes: Denies change in vision ENT HEENT: Denies dysphagia, headache(s), hearing loss, loss taste/smell or sore throat Cardiovascular Cardiovascular: Denies chest pain, edema, orthopnea or paroxysmal nocturnal dyspnea Gastrointestinal Gastrointestinal: Denies abdominal pain, diarrhea or hematochezia Genitourinary Genitourinary: Denies urinary frequency Musculoskeletal Musculoskeletal: Reports joint pain and limited range of motion; Denies back pain, extremity pain, joint swelling, muscle weakness, neck pain or stiffness Integumentary Integumentary: Denies jaundice Neurologic Neurologic: Denies confusion, dizziness, focal weakness, headache(s) or numbness Vital Signs Vital Signs Vital Signs: 11/26/23 05:45 11/26/23 05:48 11/26/23 05:48 Temperature 99.7 F H Temperature Source Temporal Pulse Rate 123 H Respiratory Rate 16 Respiratory Effort Normal Respiratory Pattern Normal Blood Pressure 187/140 H 179/113 H Blood Pressure Mean 155 135 Pulse Ox 98 Oxygen Delivery Method 11/26/23 08:52 11/26/23 10:00 Temperature Temperature Source Pulse Rate 74 Respiratory Rate 16 16 Respiratory Effort Respiratory Pattern Blood Pressure 159/96 H Blood Pressure Mean 117 Pulse Ox 95 Oxygen Delivery Method Room Air Weight Weight: 251 lb 1.704 oz Body Mass Index (BMI) 31.4 Physical Exam Const alert, oriented x3 and no apparent distress General Appearance: cooperative and well developed HEENT normocephalic, head/scalp atraumatic and oropharynx normal Eyes PERRL and EOMs intact bilaterally Neck no lymphadenopathy and supple Lymph Lymphatic: no lymphadenopathy noted Resp normal respiratory effort, normal air movement and clear to auscultation bilaterally Cardio regular rate, regular rhythm, S1 normal heart sound, S2 normal heart sound, no murmurs, no rub and peripheral pulses 2+ throughout GI normal to inspection, nondistended, normoactive bowel sounds, soft to palpation, non-tender and non-distended Extremity normal capillary refill and no clubbing, cyanosis or edema Extremity Narrative: has tenderness with flexion of leg at knee. Has mild swelling and minimal d ifferential warmth of right knee, no evidence of injury or fracture General Extremity: no tenderness to palpation of joints or extremities Neuro CN's II-XII intact bilaterally, no focal motor deficits and no sensory deficits noted Motor Exam: general weakness Psych thought process normal and cooperative Appearance: appropriate Results Lab / Micro Data 11/26/23 06:40 11/26/23 06:40 Labs: Laboratory Results - last 24 hr 11/26/23 06:40: WBC 10.1, RBC 5.13, Hgb 16.0, Hct 47.9, MCV 93.4, MCH 31.2, MCHC 33.4, RDW Std Deviation 44.3 H, RDW Coeff of May 12.9, Plt Count 432, MPV 10.2, Immature Gran % (Auto) 1.200 H, Neut % (Auto) 67.6, Lymph % (Auto) 19.9, [place] % (Auto) 10.4 H, Eos % (Auto) 0.5, Baso % (Auto) 0.4, Absolute Neuts (auto) 6.8, Absolute Lymphs (auto) 2.00, Nucleated RBC % 0, Sodium 136, Potassium 3.8, Chloride 104, Carbon Dioxide 20.0 L, Anion Gap 12, BUN 35 H, Creatinine 2.00 H, Estim Creat Clear Calc 46.94, Est GFR (MDRD) Af Amer 44 L, Est GFR (MDRD) Non-Af 36 L, BUN/Creatinine Ratio 17.5, Glucose 116 H, Calcium 9.7, Total Bilirubin 0.70, AST 22, ALT 24, Alkaline Phosphatase 103, Total Creatine Kinase 126, Total Protein 9.2 H, Albumin 3.1 L, Globulin 6.1 H, Albumin/Globulin Ratio 0.5 L 11/26/23 08:15: Urine Color Yellow, Urine Clarity Clear, Urine pH 5.0, Ur Specific Finley 1.025, Urine Protein 30 H, Urine Glucose (UA) Normal, Urine Ketones 15 H, Urine Occult Blood 10 H, Urine Nitrite Negative, Urine Bilirubin Negative, Urine Urobilinogen 4 H, Ur Leukocyte Esterase 25 H, Urine RBC 0-5 SEEN, Urine WBC 0-5 SEEN, Ur Squamous Epith Cells 0-5 SEEN, Urine Bacteria 0 SEEN, Urine Mucus 0 SEEN Imagaing Radiology Impression Knee X-Ray 11/26/23 07:25 IMPRESSION: No evidence of acute osseous changes. Small joint effusion. Electronically Signed: Ezio Pickard MD at 8:51 EST Reading Location ID and State: [facility] / [place] Tel , Service support , Knee X-Ray 11/26/23 07:25 IMPRESSION: No evidence of acute fracture. Electronically Signed: Ezio Pickard MD at 8:38 EST , Assessment & Plan Assessment/Plan (1) Weakness: (2) Debility: PLAN: Plan #Debility and weakness due to bilateral knee pain * Etiology of knee pain is unclear. He does have a history of gout. Right knee is only minimally swollen and tender he has a mild effusion there. This may be contributing to the pain. * Admit to MedSurg. Consult PT OT. Fall precautions. * P.o. Tylenol and p.o. oxycodone as needed for pain. * If pain persists and worsens, will consult orthopedic surgery. * #MARLEY: CR is 2. Likely due to decreased intake as patient says he has iona lying in bed for the past 4 days. CPK was only 126. Hydrate with fluids and monitor. #History of gout: was on prednisone. Will hold this for now as I dont see any clear evidence of gout flare up. DVT prophylaxis: SCDs COde status: full code * Patient counseled extensively about different types of CODE STATUS including full code, DNR CCA and DNR CCA. Patient elects to be full code. Total fa ce-to-face time 16 minutes. * Total time spent on evaluation and management of patient, reviewing chart, discussing plan with patient, discussion with nursing and ancillary staff as well as documentation:55 mins Charges/Coding Visit Charges Inpatient E&M: 79054 Init Hosp L2 Procedures Hospitalists Procedures: 63564 Advncd Care Plan 30 Min
--- NOTE | 2023-11-26 11:44 | NURSING ---
MED SURG OBS [facility] GENERALIZED WEAKNESS, INABLILITY TO AMBULATE, ACUTE KIDNEY INJURY
--- OUTSIDE RECORDS SUMMARY | 2023-11-26 12:05 | XMS RPT_ITS | CCD ---
Author Name Unknown Address [address] [place] [address] Organization [facility] Care [facility] Insurance Representative Name Role Phone Keyana Abebe Unavailable Unavaila [...] Unavailable Tatiana Kady Ashok Primary Care Provider [phone] TATIANA KADY ASHOK Primary Care Unavailable JOLLJENNIFER [...] 14:04-0400 Body temperature 98.2 [degF] Niyah Bui APRN.ADMISSIONS NURSE Work Phone: [facility] 04-28-2023 14:04-0400 Body weight 118.03 kg Niyah Bui APRN.ADMISSIONS NURSE Work Phone: [facility] 04-28-2023 14:04-0400 Diastolic blood pressure 88 mm[Hg] Niyah Bui APRN.ADMISSIONS NURSE Work Phone: [facility] 04-28-2023 14:04-0400 Heart rate 98 /min Niyah Bui APRN.ADMISSIONS NURSE Work Phone: [facility] 04-28-2023 14:04-0400 Respiratory rate 18 /min Niyah Bui APRN.ADMISSIONS NURSE Work Phone: [facility] 04-28-2023 14:04-0400 SaO2% (BldA) [Mass fraction] 97 % Niyah Bui APRN.ADMISSIONS NURSE Work Phone: [facility] 04-28-2023 14:04-0400 Systolic blood pressure 146 mm[Hg] Niyah Bui APRN.ADMISSIONS NURSE Work Phone: [facility] Encounters Encounter Date Encounter Type Care Provider Facility Start: 04-28-2023 End: 04-28-2023 [facility] Facility:[facility] Start: 04-28-2023 End: 04-28-2023 Patient encounter procedure Niyah Bui APRN.ADMISSIONS NURSE Work Phone: [facility] Procedures Date Procedure Procedure Detail Performing Clinician Start: 02-04-2015 Colonoscopy Niyah Bui APRN.ADMISSIONS NURSE Work Phone: Plan of Treatment Date Care Activity Detail Author Start: 02-04-2025 Colonoscopy COLONOSCOPY [facility] Start: 02-04-2025 COLORECTAL CANCER SCREENING COLORECTAL CANCER SCREENING [facility] Start: 07-30-2023 Influenza vaccination INFLUENZA (Sea son Ended) [facility] Start: 11-29-2022 DEPRESSION ASSESSMENT DEPRESSION ASS ESSMENT [facility] Start: 2018 PROSTATE CANCER SCRE ENING DISCUSSION PROSTATE CANCER SCREENING DISCUSSION [facility] Start: 2013 SHINGRIX VACCINE (1 of 2) SHINGRIX V ACCINE (1 of 2) [facility] Start: 2008 COLOGUARD (FIT-DNA) COLOGUARD (FIT-D NA) [facility] Start: [address] COLONOGRAPHY [facility] Start: 2008 DIABETES SCREEN DIABETES SCREEN [facility] Start: 2008 FECAL OCCULT BLOOD FECAL OCCULT BLOO D [facility] Start: 2008 SIGMOIDOSCOPY SIGMOIDOSCOPY [facility] Start: 1998 LIPID SCREEN LIPID SCREEN [facility] Start: 1982 Urine microalbumin profile DTAP,TDAP ,TD (1 - Tdap) [facility] Start: 1981 HEPATITIS C SCREENING HEPATITIS C SC REENING [facility] Start: 1981 HIV SCREENING HIV SCREENING [facility] Start: 1963 COVID-19 VACCINE (#1) COVID-19 VACCI NE (#1) [facility] Payers Date Payer Category Payer Medicaid [employer] [facility] MEDICAID [id number] 2022-Present [phone] [address] [place] [address] Medicaid [id number] 2022 Medicaid [id number] Unknown [id number] Social History Date Type Detail Facility Start: [facility]23 [facility] Work Phone: History of tobacco use Current smoker [facility] Work Phone: Start: 04-20-2023 Tobacco use and exposure Smokeless tobacco non-user [facility] Work Phone: Start: 04-28-2023 Alcohol intake Current drinke r of alcohol (finding) [facility] Start: 02-04-2015 Alcohol Comment occasional use [facility] Start: 1965 Sex Assigned At Not on file C [facility] Progress note 04-28-2023 Note Date & Type Note Facility 04-28-2023 Note HNO ID: [id number] Author: Niyah Bui APRN.ADMISSIONS NURSE Service: ? Author Type: Nurse Practitioner Type: [...] Patient was okay with this care plan. [facility] History of Present illness Narrative 04-28-2023 Niyah [...] this care plan. documented in this encounter [facility] Progress note 04-20-2023 Note Date & Type Note Facility 04-20-2023 Note HNO ID: [id number] Author: Coco Stanley APRN.ANTHONY Service: ? Author [...] However, given limited resources referred to ED. [facility] Evaluation note Note Date & Type Note Facility documented in this encounter [facility] Summary Purpose Family History No Family History Records FoundNo Family History Records Found Advance Directives No Advanced Directives Records FoundNo Advanced Directives Records Found Additional Source Comments (unrecognized sect ion and content) No Status Records FoundNo Status Records Found INFORMATION SOURCE (unrecogn ized section and content) DATE CREATED AUTHOR AUTHOR'S ORGANIZ ATION 05/09/2023 [facility] Source Comments (unrecognize d section and content) In the event this informatio n is protected by the Federal Confidentiality of Alcohol and Drug Abuse Patient Records regulations: The Federal rules restrict any use of the information to criminally investigate or prosecute any alcohol or drug abuse patient.[facility] Reason for Visit (unrecogniz ed section and [...] BE BASED ON THE PRIMARY CLINICAL RECORDS. [facility]. provides no warranty or guarantee of the accuracy or completeness of information in this document.
--- NOTE | 2023-11-26 13:03 | ED.RN ---
PT REFUSES TO PUT GOWN ON
[2023-11-26] MEDS: 0.9% Normal Saline (1000mL) 1,000 ML 125 ML IV ×2 (13:49→21:11)
[2023-11-26] MEDS: Acetaminophen 325 MG Tablet 650 MG PO ×2 (15:49→23:26)
[2023-11-26] MEDS: oxyCODONE 5 MG Tablet PO ×2 (15:49→21:10)
[2023-11-27 05:36] VITALS: BP 170/97; PULSE 82; RESP 18; TEMP 36.7; O2SAT 100
[2023-11-27] MEDS: Acetaminophen 325 MG Tablet 650 MG PO ×3 (05:44→18:13)
[2023-11-27 06:56] LABS: Absolute Lymphocyte Count 1.67 X10^3/uL (0.83-4.51); Absolute Neutrophil Count 5.4 X10^3/uL (2.0-7.7); Basophil# 0.04 X10^3/uL; Basophil% 0.5 % (0-1); Eosinophil# 0.16 X10^3/uL; Hematocrit 38.6 % (40-54); Hemoglobin 12.1 g/dL (13.0-16.5); Lymphocyte # 1.67 X10^3/ul (0.83-4.51); Lymphocyte % 20.5 % (19-41); Mean Corp Hgb Conc 31.3 g/dL (32-36); Mean Corpuscular Hgb 29.9 pg (27.0-32.0); Mean Corpuscular Volume 95.3 fL (80-94); Mean Platelet Vol. 9.8 fl (6.2-12.0); Monocyte# 0.86 X10^3/uL; Monocyte% 10.6 % (0-10); NRBC Flagged by Analyzer 0 % (0-5); Neutrophil # 5.37 X10^3/uL (2.7-7.7); Neutrophil % 65.9 % (47-70); Platelet Count 339 K/mm3 (150-450); RBC Distribution Width CV 12.9 % (11.6-14.6); RBC Distribution Width SD 45.3 fl (35.1-43.9); Red Blood Count 4.05 M/mm3 (4.6-6.2); White Blood Count 8.1 K/mm3 (4.4-11.0)
[2023-11-27 07:08] LABS: Anion Gap 0 (5-15); BUN 26 mg/dL (7-18); BUN/Creat Ratio 23.2 RATIO (10-20); Calcium,Total 8.4 mg/dL (8.5-10.1); Chloride 108 mmol/L (98-107); Creatinine, Serum 1.12 mg/dL (0.70-1.30); EST Glomerular Filtration Rate 71 mL/min (>60); Est Glom Filt Rate - Afr Amer 86 mL/min (>60); Estimated Creatinine Clearance 83.83 ml/min; Glucose 87 mg/dL (74-106); Potassium 4.5 mmol/L (3.5-5.1); Sodium Level 137 mmol/L (136-145)
[2023-11-27] MEDS: Allopurinol 100 MG Tablet PO (08:13)
[2023-11-27] MEDS: oxyCODONE 5 MG Tablet PO ×4 (08:13→20:47)
[2023-11-27] MEDS: amLODIPine 10 MG Tablet PO (08:13)
[2023-11-27 08:55] VITALS: BP 177/99; PULSE 81; RESP 16; TEMP 36.8; O2SAT 100
--- NOTE | 2023-11-27 10:41 | PN_ITS ---
Subjective Subjective Patient seen and examined. He states his knee pain was better but he now feels like he has some pain in his ankles. Overall pain has improved but he would want 1 more day before he is discharged. Blood pressure is elevated. Patient states his blood pressure usually runs in the 120s and 130s when he goes to his doctor. Review of systems otherwise negative. Objective Data Objective Data Vital Signs: Vital Signs Temp Pulse Resp BP Pulse Ox O2 Del Method 98.3 F 81 16 177/99 H 100 Room Air 11/27/23 08:55 11/27/23 08:55 11/27/23 08:55 11/27/23 08:55 11/27/23 08:55 11/27/23 08:55 Oxygen Delivery Method Room Air Weight: 241 lb Body Mass Index (BMI) 30.1 Intake & Output: Intake and Output for Last 24 Hours 11/25/23 11/26/23 11/27/23 23:59 23:59 23:59 Intake Total 3870.83 / 3870.83 985.42 / 985.42 Output Total 500 / 500 Balance 3870.83 / 3870.83 485.42 / 485.42 Medical Nutrition Assessment Dietitian: Malnutrition Criteria Met Start: 11/26/23 15:18 Freq: Status: Active Protocol: Document 11/26/23 15:18 SLA (Rec: 11/26/23 15:18 SLA Desktop) Nutrition Malnutrition Evidence of Malnutrition Exists Yes Malnutrition (severe): Acute Illness/Injury Evidenced By Suboptimal Energy Intake ( Severe),Weight Loss (Severe) Clinical Problem Acute Disease or Injury Related Malnutrition Etiology related to inability to access food/water d/t unable to get out of bed x 4 days d/t alicia knee pain Signs/Symptoms as evidenced by 11% unintended wt loss and <75% of est nutritional needs x 4 days bell captain Status Active Problem Recommendation Dietitian Recommendations/Changes Continue Regular diet Allow snacks tid between meals as desired by pt Lab / Micro Data 11/27/23 06:16 11/27/23 06:16 Labs: Laboratory Results - last 24 hr 11/27/23 06:16: WBC 8.1, RBC 4.05 L, Hgb 12.1 L, Hct 38.6 L, MCV 95.3 H, MCH 29.9, MCHC 31.3 L D, RDW Std Deviation 45.3 H, RDW Coeff of May 12.9, Plt Count 339, MPV 9.8, Immature Gran % (Auto) 0.500, Neut % (Auto) 65.9, Lymph % (Auto) 20.5, [place] % (Auto) 10.6 H, Eos % (Auto) 2.0, Baso % (Auto) 0.5, Absolute Neuts (auto) 5.4, Absolute Lymphs (auto) 1.67, Nucleated RBC % 0, Sodium 137, Potassium 4.5, Chloride 108 H, Carbon Dioxide 29.0, Anion Gap 0 L, BUN 26 H, Creatinine 1.12, Estim Creat Clear Calc 83.83, Est GFR (MDRD) Af Amer 86, Est GFR (MDRD) Non-Af 71, BUN/Creatinine Ratio 23.2 H, Glucose 87, Calcium 8.4 L Physical Exam Const alert, oriented x3 and no apparent distress General Appearance: cooperative and well developed HEENT normocephalic, head/scalp atraumatic and oropharynx normal Eyes PERRL and EOMs intact bilaterally Neck no lymphadenopathy and supple Lymph Lymphatic: no lymphadenopathy noted Resp normal respiratory effort, normal air movement and clear to auscultation bilaterally Cardio regular rate, regular rhythm, S1 normal heart sound, S2 normal heart sound, no murmurs, no rub and peripheral pulses 2+ throughout GI normal to inspection, nondistended, normoactive bowel sounds, soft to palpation, non-tender and non-distended Extremity normal capillary refill and no clubbing, cyanosis or edema Extremity Narrative: has tenderness with flexion of leg at knee. Has mild swelling and minimal differential warmth of right knee, no evidence of injury or fracture General Extremity: no tenderness to palpation of joints or extremities Neuro CN's II-XII intact bilaterally, no focal motor deficits and no sensory deficits noted Motor Exam: general weakness Psych thought process normal and cooperative Appearance: appropriate Assessment & Plan Assessment/Plan (1) Weakness: (2) Debility: PLAN: Plan #Debility and weakness due to bilateral knee pain * Etiology of knee pain is unclear. He does have a history of gout. Right knee is only minimally swollen and tender he has a mild effusion there. This may be contributing to the pain. * Admit to MedSurg. Consult PT OT. Fall precautions. * P.o. Tylenol and p.o. oxycodone as needed for pain. * If pain persists and worsens, will consult orthopedic surgery. * #MARLEY: CR is 2. Likely due to decreased intake as patient says he has iona lying in bed for the past 4 days. CPK was only 126. Hydrate with fluids and monitor. #History of gout: was on prednisone. Will hold this for now as I dont see any clear evidence of gout flare up. DVT prophylaxis: SCDs COde status: full code * Patient counseled extensively about different types of CODE STATUS including full code, DNR CCA and DNR CCA. Patient elects to be full code. Total [id number] time 16 minutes. * Total time spent on evaluation and management of patient, reviewing chart, discussing plan with patient, discussion with nursing and ancillary staff as well as documentation:55 mins
[2023-11-27 11:29] VITALS: BP 175/95; PULSE 91; RESP 16; TEMP 36.9; O2SAT 100
[2023-11-27 14:47] VITALS: BP 168/96; PULSE 102; RESP 16; TEMP 37.4; O2SAT 100
[2023-11-27 20:45] VITALS: BP 146/92; PULSE 92; RESP 16; TEMP 36.8; O2SAT 99
[2023-11-28] MEDS: oxyCODONE 5 MG Tablet PO ×5 (04:37→20:31)
[2023-11-28 06:24] LABS: Absolute Lymphocyte Count 1.98 X10^3/uL (0.83-4.51); Absolute Neutrophil Count 6.2 X10^3/uL (2.0-7.7); Basophil# 0.06 X10^3/uL; Basophil% 0.6 % (0-1); Eosinophil# 0.16 X10^3/uL; Eosinophils% 1.7 % (0-5); Hematocrit 39.7 % (40-54); Hemoglobin 12.7 g/dL (13.0-16.5); Lymphocyte # 1.98 X10^3/ul (0.83-4.51); Lymphocyte % 21.3 % (19-41); Mean Corpuscular Hgb 30.3 pg (27.0-32.0); Mean Corpuscular Volume 94.7 fL (80-94); Mean Platelet Vol. 9.4 fl (6.2-12.0); Monocyte# 0.87 X10^3/uL; Monocyte% 9.4 % (0-10); NRBC Flagged by Analyzer 0 % (0-5); Neutrophil # 6.18 X10^3/uL (2.7-7.7); Neutrophil % 66.5 % (47-70); Platelet Count 382 K/mm3 (150-450); RBC Distribution Width CV 12.7 % (11.6-14.6); RBC Distribution Width SD 44.1 fl (35.1-43.9); Red Blood Count 4.19 M/mm3 (4.6-6.2); White Blood Count 9.3 K/mm3 (4.4-11.0)
[2023-11-28 06:53] LABS: Anion Gap 4 (5-15); BUN 20 mg/dL (7-18); BUN/Creat Ratio 19.4 RATIO (10-20); Calcium,Total 8.8 mg/dL (8.5-10.1); Chloride 109 mmol/L (98-107); Creatinine, Serum 1.03 mg/dL (0.70-1.30); EST Glomerular Filtration Rate 78 mL/min (>60); Est Glom Filt Rate - Afr Amer 95 mL/min (>60); Estimated Creatinine Clearance 91.15 ml/min; Glucose 83 mg/dL (74-106); Potassium 4.2 mmol/L (3.5-5.1); Sodium Level 137 mmol/L (136-145)
[2023-11-28] MEDS: Acetaminophen 325 MG Tablet 650 MG PO ×2 (08:09→15:28)
[2023-11-28] MEDS: Allopurinol 100 MG Tablet PO (08:09)
[2023-11-28] MEDS: amLODIPine 10 MG Tablet PO (08:11)
[2023-11-28 08:35] VITALS: BP 155/98; PULSE 89; RESP 16; TEMP 36.6; O2SAT 100
--- NOTE | 2023-11-28 10:07 | PN_ITS ---
Subjective Subjective Patient seen and examined. He tells me today he does not feel well enough to go home because the pain is now migrated to his ankles. It was initially in his right ankle and now on his left ankle after initially being in his knees. He denies any rash and he states he is unable to fully weight-bear. Review of sys tems otherwise negative. Objective Data Objective Data Vital Signs: Vital Signs Temp Pulse Resp BP Pulse Ox O2 Del Method 97.9 F 89 16 155/98 H 100 Room Air 11/28/23 08:35 11/28/23 08:35 11/28/23 08:35 11/28/23 08:35 11/28/23 08:35 11/28/23 08:35 Oxygen Delivery Method Room Air Weight: 241 lb Body Mass Index (BMI) 30.1 Intake & Output: Intake and Output for Last 24 Hours 11/26/23 11/27/23 11/28/23 23:59 23:59 23:59 Intake Total 3870.83 / 3870.83 2635.42 / 2635.42 Output Total 500 / 500 Balance 3870.83 / 3870.83 2135.42 / 2135.42 Medical Nutrition Assessment Dietitian: Malnutrition Criteria Met Start: 11/26/23 15:18 Freq: Status: Active Protocol: Document 11/26/23 15:18 SLA (Rec: 11/26/23 15:18 ESTUARDO Desktop) Nutrition Malnutrition Evidence of Malnutrition Exists Yes Malnutrition (severe): Acute Illness/Injury Evidenced By Suboptimal Energy Intake ( Severe),Weight Loss (Severe) Clinical Problem Acute Disease or Injury Related Malnutrition Etiology related to inability to access food/water d/t unable to get out of bed x 4 days d/t alicia knee pain Signs/Symptoms as evidenced by 11% unintended wt loss and <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 Recommendation Dietitian Recommendations/Changes Continue Regular diet Allow snacks tid between meals as desired by pt Lab / Micro Data 11/28/23 06:04 11/28/23 06:04 Labs: Laboratory Results - last 24 hr 11/28/23 06:04: WBC 9.3, RBC 4.19 L, Hgb 12.7 L, Hct 39.7 L, MCV 94.7 H, MCH 30.3, MCHC 32.0, RDW Std Deviation 44.1 H, RDW Coeff of May 12.7, Plt Count 382, MPV 9.4, Immature Gran % (Auto) 0.500, Neut % (Auto) 66.5, Lymph % (Auto) 21.3, [place] % (Auto) 9.4, Eos % (Auto) 1.7, Baso % (Auto) 0.6, Absolute Neuts (auto) 6.2, Absolute Lymphs (auto) 1.98, Nucleated RBC % 0, Sodium 137, Potassium 4.2, Chloride 109 H, Carbon Dioxide 24.0, Anion Gap 4 L, BUN 20 H, Creatinine 1.03, Estim Creat Clear Calc 91.15, Est GFR (MDRD) Af Amer 95, Est GFR (MDRD) Non-Af 78, BUN/Creatinine Ratio 19.4, Glucose 83, Calcium 8.8 Physical Exam Const alert, oriented x3 and no apparent distress General Appearance: cooperative and well developed HEENT normocephalic, head/scalp atraumatic and oropharynx normal Eyes PERRL and EOMs intact bilaterally Neck no lymphadenopathy and supple Lymph Lymphatic: no lymphadenopathy noted Resp normal respiratory effort, normal air movement and clear to auscultation bilaterally Cardio regular rate, regular rhythm, S1 normal heart sound, S2 normal heart sound, no murmurs, no rub and peripheral pulses 2+ throughout GI normal to inspection, nondistended, normoactive bowel sounds, soft to palpation, non-tender and non-distended Extremity normal capillary refill and no clubbing, cyanosis or edema Extremity Narrative: Has mild tenderness with palpation of the left ankle. Mild differential warmth of both knees. 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 * He denies any rash and has no obvious evidence of a rash. * Concerned that he may have an underlying rheumatologic condition. * Will do ESR and CRP. Ordered VIRY with rheumatology reflexive is positive. * Started on p.o. prednisone and continue p.o. oxycodone negative Tylenol * PT OT on board. For precautions. * * #MARLEY:resolved #History of gout: was on prednisone. I am not convinced that gout. Because of his migratory polyarthritis. Will however resume prednisone in light of the migratory joint pain DVT prophylaxis: SCDs COde status: full code * * Total time spent on evaluation and management of patient, reviewing chart, discussing plan with patient, discussion with nursing and ancillary staff as well as documentation:30 mins Charges/Coding Visit Charges Inpatient E&M: 75708 Subs Hosp L2
[2023-11-28 11:10] VITALS: BP 149/92; PULSE 99; RESP 16; TEMP 37; O2SAT 98
[2023-11-28 11:15] LABS: Erythrocyte Sedimentation Rate 113 mm/hr (0-20)
[2023-11-28] MEDS: predniSONE 20 MG Tablet 60 MG PO (12:23)
[2023-11-28 15:31] VITALS: BP 140/99; PULSE 91; RESP 16; TEMP 37; O2SAT 95
[2023-11-28 20:30] VITALS: BP 152/98; PULSE 87; RESP 16; TEMP 36.4; O2SAT 98
[2023-11-29 00:30] VITALS: BMI 30.1
[2023-11-29 02:30] VITALS: BP 155/96; PULSE 82; RESP 16; TEMP 37; O2SAT 95
[2023-11-29 06:23] LABS: Absolute Lymphocyte Count 1.83 X10^3/uL (0.83-4.51); Absolute Neutrophil Count 11.3 X10^3/uL (2.0-7.7); Basophil# 0.04 X10^3/uL; Basophil% 0.3 % (0-1); Eosinophil# 0.05 X10^3/uL; Eosinophils% 0.3 % (0-5); Hematocrit 38.5 % (40-54); Hemoglobin 12.9 g/dL (13.0-16.5); Lymphocyte # 1.83 X10^3/ul (0.83-4.51); Lymphocyte % 12.7 % (19-41); Mean Corp Hgb Conc 33.5 g/dL (32-36); Mean Corpuscular Hgb 30.9 pg (27.0-32.0); Mean Corpuscular Volume 92.1 fL (80-94); Mean Platelet Vol. 9.3 fl (6.2-12.0); Monocyte# 1.11 X10^3/uL; Monocyte% 7.7 % (0-10); NRBC Flagged by Analyzer 0 % (0-5); Neutrophil # 11.31 X10^3/uL (2.7-7.7); Neutrophil % 78.4 % (47-70); Platelet Count 428 K/mm3 (150-450); RBC Distribution Width CV 12.8 % (11.6-14.6); RBC Distribution Width SD 43.6 fl (35.1-43.9); Red Blood Count 4.18 M/mm3 (4.6-6.2); White Blood Count 14.4 K/mm3 (4.4-11.0)
[2023-11-29 06:47] LABS: Anion Gap 3 (5-15); BUN 23 mg/dL (7-18); BUN/Creat Ratio 23.8 RATIO (10-20); Calcium,Total 9.1 mg/dL (8.5-10.1); Chloride 110 mmol/L (98-107); Creatinine, Serum 0.97 mg/dL (0.70-1.30); EST Glomerular Filtration Rate 84 mL/min (>60); Est Glom Filt Rate - Afr Amer 102 mL/min (>60); Estimated Creatinine Clearance 96.79 ml/min; Glucose 98 mg/dL (74-106); Potassium 4.3 mmol/L (3.5-5.1); Sodium Level 137 mmol/L (136-145)
[2023-11-29] MEDS: oxyCODONE 5 MG Tablet PO (07:30)
[2023-11-29] MEDS: predniSONE 20 MG Tablet 60 MG PO (07:30)
[2023-11-29] MEDS: Allopurinol 100 MG Tablet PO (07:31)
[2023-11-29] MEDS: amLODIPine 10 MG Tablet PO (07:32)
[2023-11-29 08:58] VITALS: BP 154/104; PULSE 87; RESP 16; TEMP 36.8; O2SAT 100
--- NOTE | 2023-11-29 10:05 | DCINST_ITS ---
Discharge Instructions Diet Discharge Diet: Low fat / Low cholesterol Activity Discharge Activity: Return to Normal Activity Dressing / Incision Call your doctor if you observe: Fever of 101 or Higher, Shortness of breath, Dizziness, Fainting spells, Swelling in the ankles, Chest pain and Increased palpitations (irregular heartbeat) Follow Up Care Test Results: Test results from this visit will be discussed in further detail at your follow- up appointment, if applicable. Discharge Plan Admission Admit Date/Time: 11/26/23 11:31 Attending Provider: Wayne Friend Primary Care Provider: Kady Aguiar Consulting Providers: Christiane Martin Instructions Additional Instructions / Restrictions: Follow-up with your primary care doctor as an outpatient to obtain a referral to rheumatology on the off chance that this is not gout. In the meantime try to stick with the diet we talked about at length today for gout, your uric acid which can be elevated in gout was elevated back in April when you presented to the ER and you are on allopurinol which should help treat the gout if that is what the joint pain is. You also have high blood pressure so you were started on a medication called [facility] the main side effect of this can be lower extremity swelling but you do need to follow-up with your primary care doctor as you may need further blood pressure medication adjustments. This can resolve with exercise like we talked about this morning. Discharge Orders/Prescriptions Prescriptions: New amlodipine 10 mg Tablet 10 mg PO DAILY 30 Days Qty: 30 0RF prednisone 10 mg tablet 40 mg PO BREAKFAST Qty: 53 0RF Rx Instructions: Take 4 tablets daily for 5 days then 3 tablets daily for 5 days then 2 tablets daily for 5 days then 1 tablet daily for 5 days then half tablet daily for 6 days Continued allopurinol 100 mg tablet 100 mg PO DAILY 30 Days Qty: 30 2RF Discontinued prednisone 20 mg tablet 40 mg PO DAILY 10 Days Qty: 20 0RF meloxicam 7.5 mg tablet 7.5 mg PO DAILY Qty: 20 0RF hydrocodone-acetaminophen [hydrocodone-acetaminophen] 5-325 mg tablet 1 tab PO Q4H PRN PRN (Reason: Pain) 2 Days Qty: 4 0RF prednisone 20 mg tablet 40 mg PO DAILY 7 Days Qty: 14 0RF prednisone 20 mg tablet 40 mg PO DAILY Qty: 10 0RF prednisone 20 mg tablet 60 mg PO DAILY Qty: 18 0RF prednisone 20 mg tablet 60 mg PO DAILY Qty: 18 0RF prednisone 50 mg tablet 50 mg PO DAILY Qty: 5 0RF Referrals / Follow Up: Kady Aguiar MD [Primary Care Provider] - Within 1 Week Disposition Disposition (needs filled in before D/C Order can be placed): Home, Self Care
--- NOTE | 2023-11-29 12:37 | PCM.DC.SUM ---
Providers Date of Admission: 11/26/23 Primary Care Physician: Dr. Kady Aguiar MD Reason For Visit: WEAKNESS AND DEBILITY Diagnosis Discharge Diagnosis (1) Weakness: Status: Acute Code(s): R53.1 - Weakness (2) Debility: Status: Acute Code(s): R53.81 - Other malaise Medications at Discharge Home Medications allopurinol 100 mg tablet 100 mg PO DAILY gout 30 days #30 tabs 11/29/23 amlodipine 10 mg tablet 10 mg PO DAILY 30 days #30 tabs 11/29/23 prednisone 10 mg tablet 40 mg (4 x 10 mg) PO BREAKFAST #53 tabs 11/29/23 Hospital Course Operations None Procedures None Summary of Care Provided Minutes Spent on Discharge: 42 Hospital Course: Per HPI:AMELIA WEST, is a 58 M with a past medical history as outlined who presents via the ED on 11/26/2023 with a complaint of weakness and debility as well as bilateral knee pain. Patient said he had been having pain in his knees for about 4 days now and could not ambulate. He had pretty much been lying in bed all 4 days. He said he thought it would get better but his symptoms did not improve so he called the EMS today. He denied any trauma to his knees, any frequent falls, any dizziness or lightheadedness, any fever or chills or any other symptoms. He does admit to a history of gout as far as he knows he does not have arthritis. Review of systems otherwise negative. At time of review, vitals were blood pressure 159/96, respiratory rate of 16 and pulse rate of 74. Temperature was initially 99.7 when he came into the ED but went down to 98.3 Fahrenheit. He was saturating at 99% on room air. CBC was unremarkable. BMP shows sodium of 136 with creatinine of 2. Urinalysis showed no evidence of UTI. X-ray of the left knee showed a small joint effusion but no evidence of acute osseous changes and x-ray of the right knee showed no acute pathology. He is evaluated to evaluate for debility due to bilateral knee pain. 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 He states that he saw a volunteer assistant 1 time in the past with no significant diagnosis. He did have an elevated uric acid in April so it is possible that this is just a gout flare, his inflammatory markers were elevated so an rheumatological panel was obtained but these take about a week to come back. Today he says that he feels much better and so I discussed with him the plan for discharge on a steroid taper. We did discuss at length the diet for gout which is essentially everything that he eats, today for breakfast he had [place] toast as well as an Egg McMuffin sandwich scrambled eggs, ward, and hashbrowns. So encouraged him to have significant dietary modifications and to continue his home allopurinol and see if this made any changes in his symptoms. In the meantime I recommend that he follow-up with his PCP in 3 to 5 days to obtain outpatient rheumatology referral. 2. Hypertension?it does not appear that he has a history of this however in the hospital his systolics were in the 150 to 170s with a diastolic in the 90s to 100s, he was started on Norvasc and I recommended he follow-up with his PCP for outpatient monitoring, and treatment adjustment. Physical Exam Narrative General: Alert, Oriented x3, Cooperative, No apparent distress HEENT: Atraumatic, PERRLA, EOMI, Normocephalic Oral: Moist Mucosa Neck: Supple, No JVD Lungs: Clear to auscultation, Normal air movement, No rhonchi, No wheeze, No rales Cardiovascular: Regular rate, Regular Rhythm, Normal S1, Normal S2, No murmurs Abdomen: Soft, Non Tender, Non-Distended, No Hepato-splenomegaly Extremities: No edema, Capillary Refill Less than 3 Seconds Skin: No rashes, No breakdown Musculoskeletal: No Tenderness to Palpation of Joints or Extremities Neurological: Cranial nerves II-XII grossly intact, Motor Exam 5/5 strength throughout, Sensory exam intact to light touch and pain Psych/Mental Status: Normal Affect, Appropriate Medical Records Data Medical Nutrition Assessment Dietitian: Malnutrition Criteria Met Start: 11/26/23 15:18 Freq: Status: Active Protocol: Document 11/26/23 15:18 SLA (Rec: 11/26/23 15:18 ESTUARDO Desktop) Nutrition Malnutrition Evidence of Malnutrition Exists Yes Malnutrition (severe): Acute Illness/Injury Evidenced By Suboptimal Energy Intake ( Severe),Weight Loss (Severe) Clinical Problem Acute Disease or Injury Related Malnutrition Etiology related to inability to access food/water d/t unable to get out of bed x 4 days d/t alicia knee pain Signs/Symptoms as evidenced by 11% unintended wt loss and <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 Dietitian Recommendations/Changes Continue Regular diet Allow snacks tid between meals as desired by pt Weight / BMI Weight Weight: 241 lb Body Mass Index (BMI) 30.1 ABG / Lab / Microbiology Data 11/29/23 06:09 11/29/23 06:09 Laboratory: Laboratory Results - last 24 hr 11/29/23 06:09: WBC 14.4 H, RBC 4.18 L, Hgb 12.9 L, Hct 38.5 L, MCV 92.1, MCH 30.9, MCHC 33.5, RDW Std Deviation 43.6, RDW Coeff of May 12.8, Plt Count 428, MPV 9.3, Immature Gran % (Auto) 0.600, Neut % (Auto) 78.4 H, Lymph % (Auto) 12.7 L, Wolfe % (Auto) 7.7, Eos % (Auto) 0.3, Baso % (Auto) 0.3, Absolute Neuts (auto) 11.3 H, Absolute Lymphs (auto) 1.83, Nucleated RBC % 0, Sodium 137, Potassium 4.3, Chloride 110 H, Carbon Dioxide 24.0, Anion Gap 3 L, BUN 23 H, Creatinine 0.97, Estim Creat Clear Calc 96.79, Est GFR (MDRD) Af Amer 102, Est GFR (MDRD) Non-Af 84, BUN/Creatinine Ratio 23.8 H, Glucose 98, Calcium 9.1 D/C Instructions Discharge Diet: Low fat / Low cholesterol Call your doctor if you observe: Fever of 101 or Higher, Shortness of breath, Dizziness, Fainting spells, Swelling in the ankles, Chest pain and Increased palpitations (irregular heartbeat) Meaningful Use Info Meaningful Use Diagnoses (Choose all that apply): None applicable Discharge Plan Admission Admit Date/Time: 11/26/23 11:31 Attending Provider: Wayne Friend Primary Care Provider: Kady Aguiar Consulting Providers: Christiane Martin Instructions Additional Instructions / Restrictions: Follow-up with your primary care doctor as an outpatient to obtain a referral to rheumatology on the off chance that this is not gout. In the meantime try to stick with the diet we talked about at length today for gout, your uric acid which can be elevated in gout was elevated back in April when you presented to the ER and you are on allopurinol which should help treat the gout if that is what the joint pain is. You also have high blood pressure so you were started on a medication called [facility] the main side effect of this can be lower extremity swelling but you do need to follow-up with your primary care doctor as you may need further blood pressure medication adjustments. This can resolve with exercise like we talked about this morning. Discharge Orders/Prescriptions Prescriptions: New amlodipine 10 mg Tablet 10 mg PO DAILY 30 Days Qty: 30 0RF prednisone 10 mg tablet 40 mg PO BREAKFAST Qty: 53 0RF Rx Instructions: Take 4 tablets daily for 5 days then 3 tablets daily for 5 days then 2 tablets daily for 5 days then 1 tablet daily for 5 days then half tablet daily for 6 days Continued allopurinol 100 mg tablet 100 mg PO DAILY 30 Days Qty: 30 2RF Discontinued prednisone 20 mg tablet 40 mg PO DAILY 10 Days Qty: 20 0RF meloxicam 7.5 mg tablet 7.5 mg PO DAILY Qty: 20 0RF hydrocodone-acetaminophen [hydrocodone-acetaminophen] 5-325 mg tablet 1 tab PO Q4H PRN PRN (Reason: Pain) 2 Days Qty: 4 0RF prednisone 20 mg tablet 40 mg PO DAILY 7 Days Qty: 14 0RF prednisone 20 mg tablet 40 mg PO DAILY Qty: 10 0RF prednisone 20 mg tablet 60 mg PO DAILY Qty: 18 0RF prednisone 20 mg tablet 60 mg PO DAILY Qty: 18 0RF prednisone 50 mg tablet 50 mg PO DAILY Qty: 5 0RF Referrals / Follow Up: Kady Aguiar MD [Primary Care Provider] - Within 1 Week Disposition Disposition (needs filled in before D/C Order can be placed): Home, Self Care Charges/Coding Visit Charges Inpatient E&M: 62826 Disch Hosp >30min
[2023-12-01 11:08] LABS: ANTINUCLEAR ANTIBODIES DIRECT Negative (Negative)
== END 2023-11-29 13:53 | disposition home or self-care (01) ==
LOC: ED 06:17 → MS3 11:51
PROVIDERS: Admitting Provider Student in an Organized Health Care Education/Training Program; Emergency Provider Student in an Organized Health Care Education/Training Program; PCP Family Medicine; Visit Provider Family Medicine
DX: R53.81 Other malaise (principal); N17.9 Acute kidney failure, unspecified; M25.571 Pain in right ankle and joints of right foot; M25.562 Pain in left knee; M25.512 Pain in left shoulder; M25.561 Pain in right knee; M25.572 Pain in left ankle and joints of left foot; M25.462 Effusion, left knee; Z79.52 Long term (current) use of systemic steroids; M25.511 Pain in right shoulder; R53.1 Weakness; R10.9 Unspecified abdominal pain; Z79.899 Other long term (current) drug therapy; M13.80 Other specified arthritis, unspecified site
CPT/HCPCS: 36415; 73560; 80048; 80053; 81001; 82550; 85025; 85652; 86038; 86140; 86225; 86235; 96361; 96374; 96375; 97110; 97162; 97166; 97530; 97535; 97802; 99221; 99284; J7030; G0378; J2405

== ENCOUNTER 2023-12-20 02:00 | Emergency (ER) | payer MEDICAID, SELFPAY ==
[2023-12-20 02:02] VITALS: BP 158/105; PULSE 112; RESP 16; TEMP 36.8; O2SAT 96; BMI 32.3
[2023-12-20 02:05] VITALS: BP 158/105; PULSE 112; RESP 18; TEMP 36.8; O2SAT 96
--- OUTSIDE RECORDS SUMMARY | 2023-12-20 02:32 | XMS RPT_ITS | CCD ---
Author Name Unknown Address [address] [place] [address] Organization [facility] Care Team Providers Care Inside Sales Consultant Name Role Phone Keyana Abebe Unavailable Unavaila [...] 14:04-0400 Body temperature 98.2 [degF] Niyah Bui APRN.SECURITY SYSTEMS INSTALLER Work Phone: [facility] 04-28-2023 14:04-0400 Body weight 118.03 kg Niyah Bui APRN.SECURITY SYSTEMS INSTALLER Work Phone: [facility] 04-28-2023 14:04-0400 Diastolic blood pressure 88 mm[Hg] Niyah Bui APRN.SECURITY SYSTEMS INSTALLER Work Phone: [facility] 04-28-2023 14:04-0400 Heart rate 98 /min Niyah Bui APRN.SECURITY SYSTEMS INSTALLER Work Phone: [facility] 04-28-2023 14:04-0400 Respiratory rate 18 /min Niyah Bui APRN.SECURITY SYSTEMS INSTALLER Work Phone: [facility] 04-28-2023 14:04-0400 SaO2% (BldA) [Mass fraction] 97 % Niyah Bui APRN.SECURITY SYSTEMS INSTALLER Work Phone: [facility] 04-28-2023 14:04-0400 Systolic blood pressure 146 mm[Hg] Niyah Bui APRN.SECURITY SYSTEMS INSTALLER Work Phone: [facility] Encounters Encounter Date Encounter Type Care Provider Facility Start: 04-28-2023 End: 04-28-2023 [facility] Facility:[facility] Start: 04-28-2023 End: 04-28-2023 Patient encounter procedure Niyah Bui APRN.SECURITY SYSTEMS INSTALLER Work Phone: [facility] Procedures Date Procedure Procedure Detail Performing Clinician Start: 02-04-2015 Colonoscopy Niyah Bui APRN.SECURITY SYSTEMS INSTALLER Work Phone: Plan of Treatment Date Care Activity Detail Author Start: 02-04-2025 Colonoscopy COLONOSCOPY [facility] Start: 02-04-2025 COLORECTAL CANCER SCREENING COLORECTAL CANCER SCREENING [facility] Start: 07-30-2023 Influenza vaccination INFLUENZA (Sea son Ended) [facility] Start: 11-29-2022 DEPRESSION ASSESSMENT DEPRESSION ASS ESSMENT [facility] Start: 2018 PROSTATE CANCER SCRE ENING DISCUSSION PROSTATE CANCER SCREENING DISCUSSION [facility] Start: 2013 SHINGRIX VACCINE (1 of 2) SHINGRIX V ACCINE (1 of 2) [facility] Start: 2008 COLOGUARD (FIT-DNA) COLOGUARD (FIT-D NA) [facility] Start: [address] COLONOGRAPHY [facility] Start: 2008 DIABETES SCREEN DIABETES SCREEN [facility] Start: 2008 FECAL OCCULT BLOOD FECAL OCCULT BLOO D [facility] Start: 2008 SIGMOIDOSCOPY SIGMOIDOSCOPY [facility] Start: 1998 LIPID SCREEN LIPID SCREEN [facility] Start: 1982 Urine microalbumin profile DTAP,TDAP ,TD (1 - Tdap) [facility] Start: 1981 HEPATITIS C SCREENING HEPATITIS C SC REENING [facility] Start: 1981 HIV SCREENING HIV SCREENING [facility] Start: 1963 COVID-19 VACCINE (#1) COVID-19 VACCI NE (#1) [facility] Payers Date Payer Category Payer Medicaid [employer] [facility] MEDICAID [id number] 2022-Present [phone] [address] [place] [address] Medicaid [id number] 2022 Medicaid [id number] Unknown [id number] Social History Date Type Detail Facility Start: [facility]-20-[facility]23 [facility] Work Phone: History of tobacco use Current smoker [facility] Work Phone: Start: 04-20-2023 Tobacco use and exposure Smokeless tobacco non-user [facility] Work Phone: Start: 04-28-2023 Alcohol intake Current drinke r of alcohol (finding) [facility] Start: 02-04-2015 Alcohol Comment occasional use [facility] Start: 1965 Sex Assigned At Not on file [facility] Progress note 04-28-2023 Note Date & Type Note Facility 04-28-2023 Note HNO ID: [id number] Author: Niyah Bui APRN.SECURITY SYSTEMS INSTALLER Service: ? Author Type: Nurse Practitioner Type: [...] Patient was okay with this care plan. [facility] History of Present illness Narrative 04-28-2023 [...] this care plan. documented in this encounter [facility] Progress note 04-20-2023 Note Date & Type Note Facility 04-20-2023 Note HNO ID: [id number] Author: Coco Stanley APRN.ANTHONY Service: ? Author [...] However, given limited resources referred to ED. [facility] Evaluation note Note Date & Type Note Facility documented in this encounter [facility] Summary Purpose Family History No Family History Records FoundNo Family History Records Found Advance Directives No Advanced Directives Records FoundNo Advanced Directives Records Found Additional Source Comments (unrecognized sect ion and content) No Status Records FoundNo Status Records Found INFORMATION SOURCE (unrecogn ized section and content) DATE CREATED AUTHOR AUTHOR'S ORGANIZ ATION 05/09/2023 [facility] Source Comments (unrecognize d section and content) In the event this informatio n is protected by the Federal Confidentiality of Alcohol and Drug Abuse Patient Records regulations: The Federal rules restrict any use of the information to criminally investigate or prosecute any alcohol or drug abuse patient.[facility] Reason for Visit (unrecogniz ed section [...] BE BASED ON THE PRIMARY CLINICAL RECORDS. [facility] [employer] [facility]. provides no warranty or guarantee of the accuracy or completeness of information in this document.
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
[2023-12-20] MEDS: Triamcinolone Acetonide 40 MG/ML Vial IM (02:52)
[2023-12-20] MEDS: morphine 10 MG/ML Syringe IM (02:52)
[2023-12-20 03:08] VITALS: BP 141/84; PULSE 91; RESP 16; O2SAT 99
== END 2023-12-20 03:09 | disposition home or self-care (01) ==
PROVIDERS: Emergency Provider Emergency Medicine; PCP Family Medicine; Visit Provider Emergency Medicine
DX: M25.561 Pain in right knee (principal); M10.9 Gout, unspecified; M25.562 Pain in left knee; Z79.899 Other long term (current) drug therapy
CPT/HCPCS: 96372; 99283

== ENCOUNTER 2024-03-21 12:04 | Emergency (ER) | payer MEDICAID, SELFPAY ==
[2024-03-21 12:05] VITALS: BP 174/104; PULSE 66; RESP 16; TEMP 36.8; O2SAT 100; BMI 33.2
--- NOTE | 2024-03-21 12:50 | RAD_ITS ---
STUDY: X-RAY - RIGHT HAND REASON FOR EXAM: Male, 58 years old. Pain, swelling, middle finger TECHNIQUE: 3 view(s) of the hand. COMPARISON: None. FINDINGS: Normal radiocarpal articulation. Normal distal radioulnar joint. Normal visualized carpal bones. Normal carpal articulations Normal carpometacarpal articulation of the thumb. Normal second through fifth carpometacarpal joints. Normal metacarpi. Normal metacarpophalangeal joint of the thumb. Normal interphalangeal joint of the thumb. Normal proximal and distal phalanges of the thumb. Normal metacarpophalangeal joints of the second through fifth fingers. Normal proximal and distal interphalangeal joints of the second through fifth fingers. Normal phalanges of the second through fifth fingers. The soft tissue structures are unremarkable. RAD/Hand Min 3 Views IMPRESSION: Normal x-ray examination of the hand. Electronically Signed: Americo Lanier MD at 13:02 EDT ,
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
[2024-03-21 13:32] VITALS: BP 171/92; PULSE 79; RESP 17; TEMP 36.8; O2SAT 100
== END 2024-03-21 13:34 | disposition home or self-care (01) ==
PROVIDERS: Emergency Provider Emergency Medicine; PCP Family Medicine; Visit Provider Emergency Medicine
DX: S67.192A Crushing injury of right middle finger, initial encounter (principal); W23.2XXA Caught, crushed, jammed or pinched between a moving and stationary object, initial encounter; Y92.810 Car as the place of occurrence of the external cause
CPT/HCPCS: 73130; 99282

== ENCOUNTER 2025-09-25 02:26 | Emergency (ER) | payer MEDICAID, SELFPAY ==
[2025-09-25 02:26] VITALS: BP 170/91; PULSE 60; RESP 18; TEMP 36.4; O2SAT 98; BMI 34.0
[2025-09-25] MEDS: Ketorolac 30 MG/ML Syringe IM (02:46)
[2025-09-25] MEDS: Orphenadrine 60 MG/2 ML Ampul IM (02:46)
--- OUTSIDE RECORDS SUMMARY | 2025-09-25 02:57 | XMS RPT_ITS | CCD ---
Author Organization [facility] Care Team Providers Care Doctor Of Dental Surgery Name Role Phone Keyana Abebe Unavailable Unavaila ble Abebe, Keyana Brown Unavailable Unavaila ble Jolliff, Rere Ashok Unavailable Unavailable Abebe, Keyana Brown Unavailable Unavaila ble Abebe, Keyana Brown Unavailable Unavaila ble Jolliff, Rere Ashok Unavailable Unavailable Jolliff, Rere Ashok Unavailable Unavailable Abebe, Keyana Brown Unavailable Unavaila ble Abebe, Keyana Brown Unavailable Unavaila ble PCP, Pt states no Unavailable Unavailable Jolliff, Rere Ashok Unavailable Unavailable Cosme Rere Ashok Primary Care Provider Dr. Rere Aguiar Primary Care Provider Dr. Rei German Emergency Provider Mario, Dr. Christiane Wade Admit Provider Dr. Christiane Martin Attending Provider [phone] Mario, Dr. Christiane Wade Other Provider Dr. Wayne Friend Attending Provider Dr. Wayne Friend Other Provider RERE AGUIAR Primary Care Unavailable RERE VALENTINO Referring Unavailable Dr. Rere Aguiar Primary Care Provider Dr. Rei German Emergency Provider Mario, Dr. Christiane Wade Admit Provider Dr. Christiane Martin Attending Provider Dr. Christiane Martin Other Provider Dr. Wayne Friend Attending Provider Dr. Wayne Friend Other Provider [phone] Jolliff, Rere Ashok Primary Care Provider [phone] Rafy Butler Referring Unavailable Rafy Butler Attending Unavailable Jolliff, Rere S Primary Care Unavailable Koram, Christiane Sheri Admitting Unavailable Koram, Christiane Sheri Attending Unavailable Koram, Christiane Sheri Consulting Unavailable Jolliff, Rere S Primary Care Unavailable Wayne Friend Attending Unavailable Wayne Friend Consulting Unavailable Jolliff, Rere S Primary Care Unavailable Mayank Kent Attending Unavailable Mauricio Ceja Attending Unavailable Jolliff, Rere S Primary Care Unavailable Antonio Jarvis Attending Unavailable Jolliff, Rere S Primary Care Unavailable Jolliff, Rere S Primary Care Unavailable Rei German Attending Unavailable Wayne Friend Attending Unavailable Koram, Christiane Sheri Admitting Unavailable Koram, Christiane Sheri Consulting Unavailable Jolliff, Rere S Primary Care Unavailable Jolliff, Rere S Primary Care Unavailable Dean Mendez Attending Unavailable Assessment, Health Risk Attending Unavaila ble Jolliff, Rere S Primary Care Unavailable Assessment, Health Risk Referring Unavaila Idris Elmore Attending Unavailable Jolliff, Rere S Primary Care Unavailable Jolliff, Rere S Primary Care Unavailable Dean Mendez Attending Unavailable Kota Isaac Attending Unavailable Jolliff, Rere S Primary Care Unavailable Miriam Bonds Attending Unavailable Jolliff, Rere S Primary Care Unavailable Mayank Kent Attending Unavailable Jolliff, Rere S Primary Care Unavailable JOLLIFF, RERE ASHOK Primary Care Unavailable PEGGY HUNTER Referring Unavailable JOLLIFF, RERE ASHOK Primary Care Unavailable CHICHO, RERE M Referring Unavailable JOLLIFF, RERE ASHOK Primary Care Unavailable CHICHO, RERE M Referring Unavailable JOLLIFF, RERE ASHOK Primary Care Unavailable CHICHO, RERE M Referring Unavailable JOLLIFF, RERE ASHOK Primary Care Unavailable PEGGY HUNTER Attending Unavailable JOLLIFF, RERE ASHOK Primary Care Unavailable CHICHO, RERE M Attending Unavailable MACI DORSEY Referring Unavailab le JOLLIFF, RERE ASHOK Primary Care Unavailable MACI DORSEY Attending Unavailab le JOLLIFF, RERE ASHOK Primary Care Unavailable LUIS MIGUEL RHODES Attending Unavailable COSME, RERE ASHOK Primary Care Unavailable PEGGY HUNTER Referring Unavailable MALIK MERA Attending Unavailable COSME, RERE ASHOK Primary Care Unavailable JOLLIFF, RERE ASHOK Primary Care Unavailable RERE VALENTINO Attending Unavailable CHAIFF, RERE ASHOK Primary Care Unavailable RERE VALENTINO Referring Unavailable MALIK MERA Referring Unavailable CHAIFF, RERE ASHOK Primary Care Unavailable JOTATUMIFF, RERE ASHOK Primary Care Unavailable RERE VALENTINO Attending Unavailable JOLLIFF, RERE ASHOK Primary Care Unavailable RERE VALENTINO Referring Unavailable JOTATUMIFF, RERE ASHOK Primary Care Unavailable RERE VALENTINO Attending Unavailable COSME, RERE ASHOK Primary Care Unavailable RERE VALENTINO Referring Unavailable Medications Current Medications Medication Drug Class(es) Dates Sig (Normalized) Sig (Original) allopurinol 100 mg oral tablet (20 sources) Xanthine Oxidase Inhibitor Start: 04-24-2025 take 2 tablets by mouth once daily allopurinol (ZYLOPRIM) 100 mg tablet TAKE 2 TABLETS BY MOUTH EVERY DAY 180 tablet 2 04/24/2025 Active Start: 03-23-2024 End: 05-03-2024 take 2 tablets by mouth once allopurinol (ZYLOPRIM) 10 0 mg tablet Take 2 tablets by mouth every afternoon. 0 03/23/2024 05/03/2024 Discontinued Start: 02-08-2024 End: 05-03-2024 take 1 tablet by mouth once daily allopurinol (ZYLOPRIM) 200 mg tablet Take 1 tablet (200 mg) by mouth once daily. 30 tablet 11 05/03/2024 Active Start: 11-26-2023 End: 02-08-2024 take 100 mg by mouth once daily Allopurinol Active 100 MG PO DAILY 30 November 29, 2023 11:09am Comment on above: Take one(1) tablet d aily. Take 1 tablet (200 m g) by mouth once daily. amLODIPine 10 mg oral tablet (20 sources) Dihydropyridine Calcium Channel Bella Start: 11-29-2023 amLODIPine (NORVASC) 10 mg tablet Take one(1) tablet daily. 11/29/2023 Active AMLODIPINE BESYL ATE (AMLODIPINE ORAL) Take by mouth. 0 Active Comment on above: Take by mouth. Take one(1) tablet d aily. benzoyl peroxide 25 mg/ml medicated liquid soap (18 sources) Start: 02-24-2024 BP WASH 2.5 % 02/24/2024 Active benzoyl peroxide 0.05 mg/mg / clindamycin 0.01 mg/mg topical gel (13 sources) Lincosamide Antibacterial Start: 03-30-2024 Clindamycin-Benzoyl Peroxide 1-5 % gel as directed 03/30/2024 Active CERAVE (18 sources) Start: 02-21-2024 CERAVE 02/21/2024 Active Start: 02-21-2024 CERAVE cholecalciferol 0.025 mg oral capsule (17 sources) Vitamin D Start: 03-15-2024 take 2 capsules by mouth once daily Cholecalciferol, Vitamin D3, (VITAMIN D) 25 mcg (1,000 unit) cap Indications: Vitamin D deficiency Take 2 capsules by mouth once daily. 60 capsule 3 03/15/2024 Active Comment on above: Take 2 capsules by out once daily. clindamycin 10 mg/ml topical lotion (18 sources) Lincosamide Antibacterial Start: 02-24-2024 Clindamycin Phosphate (CLEOCIN T) 1 % lotion 02/24/2024 Active clobetasol propionate 0.5 mg/ml topical cream (18 sources) Corticosteroid Start: 02-08-2024 clobetasol (TEMOVATE) 0.05 % cream 02/08/2024 Active colchicine 0.6 mg oral tablet (17 sources) Start: 03-15-2024 colchicine 0.6 mg tablet Indications: Chronic pain of both knees , Gout with manifestations May take twice daily for first day then once daily there after 30 tablet 3 03/15/2024 Active Comment on above: May take twice daily for first day then once daily there after cyclobenzaprine hydrochloride 10 mg oral tablet (3 sources) Muscle Relaxant Start: 04-04-2022 take 10 mg by mouth twice daily Cyclobenzaprine Active 10 MG PO TWICE A DAY April 04, 2022 5:47pm diclofenac sodium 0.01 mg/mg topical gel (20 sources) Nonsteroidal Anti-inflammatory Drug Start: 12-27-2023 apply 2 g topically four times daily as needed diclofenac (VOLTAREN) 1 % topical gel Indications: Chronic pain of both ankles , Chronic pain of both knees Apply 2 g to affected area four times a day as needed. TO PAINFUL JOINTS , AVOID CONTACT WITH EYES, DO NOT EXCEED 32GM/DAY 50 g 12/27/2023 Active Comment on above: Apply 2 g to affecte d area four times a day as needed. TO PAINFUL JOINTS , AVOID CONTACT WITH EYES, DO NOT EXCEED 32GM/DAY doxycycline monohydrate 100 mg oral tablet (18 sources) Tetracycline-class Drug Start: 02-24-2024 take 1 tablet by mouth once daily doxycycline monohydrate 100 mg tablet Take 100 mg by mouth once daily. 02/24/2024 Active dupilumab (DUPIXENT SYRINGE) 100 mg/0.67 mL injection (20 sources) dupilumab (DUPIX ENT SYRINGE) 100 mg/0.67 mL injection Inject 100 mg subcutaneously every 2 weeks. Active dupilumab (DUPIX ENT SYRINGE) 100 mg/0.67 mL injection Inject 100 mg subcutaneously every 2 weeks. 0 Active Comment on above: Inject 100 mg subcut aneously every 2 weeks. lidocaine 0.05 mg/mg medicated patch (20 sources) Antiarrhythmic, Amide Local Anesthetic Start: End: apply 1 dose transdermal route once daily lidocaine (LIDODERM) 5 % Indications: Chronic pain of both ankles , Chronic pain of both knees , Gout with manifestations Apply 1 Patch as directed once daily. TO AFFECTED AREA. REMOVE AFTER 12 HOURS. 30 Patch 03/15/2024 Active Comment on above: Apply 1 Patch as dir ected once daily. TO AFFECTED AREA. REMOVE AFTER 12 HOURS. losartan potassium 50 mg oral tablet (14 sources) Angiotensin 2 Receptor Bella Start: 024 take 1 tablet by mouth once losartan (COZAAR) 50 mg tablet Take 1 tablet by mouth every afternoon. 03/20/2024 Active meloxicam 15 mg oral tablet (20 sources) Nonsteroidal Anti-inflammatory Drug Start: take 1 tablet by mouth once daily meloxicam (MOBIC) 15 mg tablet TAKE 1 TABLET BY MOUTH EVERY DAY 30 tablet 1 02/07/2025 Active Start: 03-04-2024 take 1 tablet by mouth once me loxicam (MOBIC) 7.5 mg tablet Take 1 tablet by mouth every afternoon. 0 03/04/2024 Active Start: 04-28-2023 End: 02-02-2024 take 7.5 mg by mouth once daily Meloxicam Discontinued 7.5 MG PO DAILY April 28, 2023 12:00am November 29, 2023 11:08am Comment on above: Take 1 tablet by krystal th every afternoon. methylPREDNISolone 4 mg oral tablet (3 sources) Corticosteroid Start: 2023 methylPREDNISolone (MEDROL, BARTOLO,) 4 mg Dose-Pack Take 1 tablet by mouth as directed. As directed on package 21 tablet 05/29/2024 Active naproxen 500 mg oral tablet (20 sources) Nonsteroidal Anti-inflammatory Drug Start: 2021 take 1 tablet by mouth twice daily Naproxen (Naprosyn) 500 mg tablet Active 500 MG PO TWICE A DAY September 15, 2022 12:00am Start: 04-01-2022 take 500 mg by mouth twice daily Naproxen Active 500 MG PO TWICE A DAY April 01, 2022 8:25pm Start: 09-29-2021 End: 11-18-2021 take 500 mg by mouth twice daily Naproxen Discontinued 500 MG PO TWICE A DAY September 29, 2021 12:00am November 18, 2021 12:30pm Start: 05-12-2020 End: 12-03-2020 take 500 mg by mouth twice daily as needed Naproxen Discontinued 500 MG PO TWICE DAILY NEEDED May 12, 2020 12:00am December 03, 2020 12:46pm Start: 11-18-2017 End: 02-24-2018 take 500 mg by mouth at mealtime, then take 250 mg by mouth every eight hours Naproxen Discontinued 250 MG PO every 6 to 12 hours 60 November 18, 2017 1:00am February 24, 2018 3:30pm administer with food or milk. 500mg first dose and then 250mg q8h until pain resolves [place] (Nk) (3 sources) Start: 03-18-2023 [place] (Nk) A ctive March 18, 2023 12:00am Start: 10-14-2022 [place] (Nk) A ctive October 14, 2022 12:00am predniSONE 20 mg oral tablet (20 sources) Start: 03-21-2024 take 1 tablet by mouth once predniSONE (DELTASONE) 20 mg tablet Take 1 tablet by mouth every afternoon. 0 03/21/2024 Active Start: 02-02-2024 End: 03-22-2024 predniSONE (DELTASONE) 5 mg tablet Take 1 tablet by mouth once daily. Then stop. No other nsaids . With food. 30 tablet 0 02/02/2024 03/22/2024 Discontinued Start: 01-20-2024 End: 02-17-2024 take 2 tablets by mouth once daily, then take 1 tablet by mouth once daily at mealtime predniSONE (DELTASONE) 5 mg tablet Take 2 tablets by mouth once daily for 14 days, THEN 1 tablet once daily for 14 days. With food . No other nsaids. 42 tablet 0 01/20/2024 02/02/2024 Discontinued Start: 12-20-2023 End: 01-20-2024 predniSONE (DELTASONE) 20 mg tablet as directed 0 12/20/2023 01/20/2024 Discontinued Start: 12-20-2023 take 60 mg by mouth once daily Prednisone Active 60 MG PO DAILY December 20, 2023 1:00am Start: 11-29-2023 End: 01-20-2024 predniSONE (DELTASONE) 10 mg tablet as directed 0 11/29/2023 01/20/2024 Discontinued Start: 11-29-2023 End: 12-20-2023 take 4 tablets by mouth once daily at breakfast, then take 3 tablets by mouth once daily, then take 2 tablets by mouth once daily, then take 1 tablet by mouth once daily, then take 0.5 tablet by mouth once daily Prednisone Discontinued 40 MG PO WITH BREAKFAST November 29, 2023 1:00am December 20, 2023 3:10am Take 4 tablets daily for 5 days then 3 tablets daily for 5 days then 2 tablets daily for 5 days then 1 tablet daily for 5 days then half tablet daily for 6 days Start: 07-29-2023 End: 11-29-2023 take 50 mg by mouth once daily Prednisone Discontinued 50 MG PO DAILY July 29, 2023 12:00am November 29, 2023 11:07am Start: 06-08-2023 End: 11-29-2023 take 60 mg by mouth once daily Prednisone Discontinued 60 MG PO DAILY August 03, 2023 12:00am November 29, 2023 11:07am Start: 04-21-2023 End: 11-29-2023 take 40 mg by mouth once daily Prednisone Discontinued 40 MG PO DAILY May 15, 2023 12:00am November 29, 2023 11:07am Start: 03-01-2023 take 40 mg by mouth once daily Prednisone Active 40 MG PO DAILY March 01, 2023 12:00am Start: 12-25-2022 take 20 mg by mouth twice [place] Prednisone Active 20 MG PO TWICE A DAY December 25, 2022 1:00am Start: 11-22-2022 End: 01-26-2023 take 40 mg by mouth once daily Prednisone Discontinued 40 MG PO DAILY 14 November 22, 2022 1:00am January 26, 2023 12:08pm Start: 09-15-2022 Prednisone Act sada 0 MG PO DAILY September 15, 2022 12:00am End: 01-20-2024 PREDNISONE ORAL Take by mout h as needed. 0 01/20/2024 Discontinued PREDNISONE ORAL Take by mouth as needed. 0 Active Comment on above: Take by mouth as nee ded. as directed Take 2 tablets by mo uth once daily for 14 days, THEN 1 tablet once daily for 14 days. With food . No other nsaids. Take 1 tablet by krystal th once daily. Then stop. No other nsaids . With food. Completed/Discontinued Medications Medication Drug Class(es) Dates Sig (Normalized) Sig (Original) acetaminophen 325 mg / HYDROcodone bitartrate 5 mg oral tablet (20 sources) Opioid Agonist Start: 04-28-2023 End: 11-29-2023 take 1 tablet by mouth every four hours as needed Hydrocodone-Acetami nophen Discontinued 1 TABLET PO EVERY 4 HOURS NEEDED 4 April 28, 2023 November 29, 2023 11:07am Start: 01-26-2023 take 1 tablet by krystal th every six hours as needed Hydrocodone-Acetaminophen Active 1 TABLE T PO EVERY 6 HOURS NEEDED 4 March 01, 2023 Start: 11-22-2022 End: 01-26-2023 take 1 tablet by mouth every four hours as needed Hydrocodone-Acetaminophen Discontinued 1 TABLET PO EVERY 4 HOURS NEEDED 10 December 25, 2022 January 26, 2023 12:08pm Start: 09-15-2022 take 1 tablet by krystal th every six hours Hydrocodone-Acetaminophen Active 1 TABLE T PO EVERY 6 HOURS 10 September 15, 2022 Start: 09-20-2018 End: 09-23-2018 take 1 tablet by mouth every six hours as needed Hydrocodone-Acetaminophen Discontinued 1 TABLET PO EVERY 6 HOURS NEEDED 10 31September 20, 2018 12:00am September 23, 2018 12:20am Start: 11-14-2017 End: 11-18-2017 take 1 tablet by mouth every six hours as needed Hydrocodone-Acetaminophen Discontinued 1 TABLET PO EVERY 6 HOURS NEEDED November 14, 2017 1:00am November 18, 2017 3:44pm Start: 11-09-2017 End: 11-18-2017 take 1 tablet by mouth every four hours as needed Hydrocodone-Acetaminophen Discontinued 1 - 2 TABLET PO EVERY 4 HOURS NEEDED November 09, 2017 1:00am November 18, 2017 3:43pm acetaminophen 325 mg / oxyCODONE hydrochloride 5 mg oral tablet (20 sources) Opioid Agonist Start: 12-20-2023 End: 05-16-2024 oxyCODONE-acetaminophen (PERCOCET) 5-325 mg tablet Take one(1) tablet every six(6) hours as needed. 0 12/20/2023 05/16/2024 Discontinued (Other) Start: 12-20-2023 take 1 tablet by krystal th every six hours as needed Oxycodone-Acetaminophen Active 1 TABLET PO EVERY 6 HOURS NEEDED 10 31December 20, 2023 Start: 12-27-2019 End: 01-01-2020 take 1 tablet by mouth every six hours as needed Oxycodone-Acetaminophen Discontinued 1 - 2 TABLET PO EVERY 6 HOURS NEEDED 25 04December 27, 2019 January 01, 2020 1:08am Start: 06-10-2019 End: 06-17-2019 take 1 tablet by mouth every four hours as needed Oxycodone-Acetaminophen Discontinued 1 TABLET PO EVERY 4 HOURS NEEDED 10 31June 10, 2019 June 17, 2019 12:08am Start: 11-20-2018 End: 11-23-2018 take 1 tablet by mouth every six hours as needed Oxycodone-Acetaminophen Discontinued 1 TABLET PO EVERY 6 HOURS NEEDED 10 31November 20, 2018 1:00am November 23, 2018 1:07am Comment on above: Take one(1) tablet e very six(6) hours as needed. ergocalciferol 1.25 mg oral capsule (14 sources) Provitamin D2 Compound Start : 01-04 End: 03-15 ergocalciferol 50,000 unit capsule (VITAMIN D2, DRISDOL) Indications: Vitamin D deficiency Take 1 capsule by mouth two times a week. (FOR EXAMPLE ONE CAPSULE ON WEDNESDAY AND ONE ON WEDNESDAY) FOR A TOTAL OF 8 WEEKS, WITH A MEAL 8 capsule 1 01/07/2024 03/15/2024 Discontinued (Other) Comment on above: Take 1 capsule by mo [facility] two times a week. (FOR EXAMPLE ONE CAPSULE ON WEDNESDAY AND ONE ON WEDNESDAY) FOR A TOTAL OF 8 WEEKS, WITH A MEAL hydroCHLOROthiazide (1 source) Thiazide Diuretic HYDROCHLOROTHI AZIDE ORAL Take by mouth. 0 Active Comment on above: Take by mouth. iv contrast (will be provided with radiology test) (2 sources) Start : 03-14 End: 03-15 iv contrast (will be provided with radiology test) MRI Neck Inject, intravenously, once for 1 dose. No IV access, insert saline lock prior to the beginning of sedation, infusion, injection of imaging exam. Discontinue saline lock post exam. If Pt. has a central line or IVAD, may access for administration according to line specific nursing protocol. Once exam is complete flush line and de-access according to line specific nursing protocol in the MR contrast administration guidelines link. 1 Each 0 03/14/2024 03/15/2024 Comment on above: MRI Neck Inject, int ravenously, once for 1 dose. No IV access, insert saline lock prior to the beginning of sedation, infusion, injection of imaging exam. Discontinue saline lock post exam. If Pt. has a central line or IVAD, may access for administration according to line specific nursing protocol. Once exam is complete flush line and de-access according to line specific nursing protocol in the MR contrast administration guidelines link. Clio-3 Fatty Acids-Vitamin E (FISH OIL) 1,000 mg cap (1 source) Clio-3 Fatty Acids-Vitamin E (FISH OIL) 1,000 mg cap Take 1 capsule by mouth. 0 Active Comment on above: Take 1 capsule by mo ut. sulfamethoxazole 800 mg / trimethoprim 160 mg oral tablet (20 sources) Dihydrofolate Reductase Inhibitor Antibacterial, Sulfonamide Antimicrobial Start : 03-14 End: 03-14 take 1 tablet by mouth twice daily Sulfamethoxazole-Trimeth oprim Discontinued 1 TABLET PO TWICE A DAY March 14, 2022 12:00am March 14, 2022 3:47pm traMADol hydrochloride 50 mg oral tablet (20 sources) Opioid Agonist Start : 01-26 End: 02-01 take 50 mg by mouth twice daily Tramadol Discontinued 50 MG PO TWICE A DAY 11 06January 26, 2020 1:00am February 02, 2020 1:09am triamcinolone acetonide 40 mg/ml injectable suspension (18 sources) Corticosteroid Start : 03-18 End: 03-18 Kenalog (triamcinolone acetonide) 40 mg/mL suspension for injection Discontinued 20 MG INTRAARTIC ONCE 0.5 March 18, 2021 1:51pm March 18, 2021 2:53pm Start: 05-14-2020 End: 05-14-2020 Kenalog (triamcinolone aceto nide) 40 mg/mL suspension for injection Discontinued 40 MG INTRAARTIC ONCE 1 May 14, 2020 10:04am May 14, 2020 11:26am Start: 11-18-2017 End: 11-18-2017 Kenalog (triamcinolone aceto nide) 10 mg/mL suspension for injection Discontinued 10 MG INTRAARTIC ONCE 1 November 18, 2017 4:49pm November 18, 2017 4:53pm Problems Active Problems Problem Classification Problem Date Documented Date Episodic/Chronic Crushing injury or internal injury (2 sources) Crushing injury of finger; Translations: [Crushing injury of unspecified finger(s), initial encounter] Onset: 03-27-2024 03-21-2024 Episodic Essential hypertension (19 sources) Hypertensive disorder; Translations: [Essential (primary) hypertension] 09-23-2022 Chronic Fracture of lower limb (10 sources) Metatarsal bone fracture; Translations: [Fracture of unspecified metatarsal bone(s), unspecified foot, initial encounter for closed fracture] 03-18-2023 Episodic 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) Gout; Translations: [Gout, unspecified] Onset: 08-25-2023 09-21-2018 Chronic Nonspecific chest pain (20 sources) Atypical chest pain; Translations: [Other chest pain] 02-17-2022 Episodic Nutritional deficiencies (5 sources) Vitamin D deficiency; Translations: [Vitamin D deficiency, unspecified] Onset: 04-03-2024 01-04-2024 Chronic Open wounds of extremities (18 sources) Laceration of hand; Translations: [Laceration without foreign body of left hand, initial encounter] 10-21-2022 Episodic Other aftercare (17 sources) Surgical follow-up; Translations: [Encounter for removal of sutures] 11-04-2022 Episodic Other and unspecified benign neoplasm (2 sources) Lipoma of right upper limb; Translations: [Benign lipomatous neoplasm of skin and subcutaneous tissue of right arm] 04-25-2024 Episodic Other and unspecified benign neoplasm (2 sources) Lipoma (clinical); Translations: [Benign lipomatous neoplasm, unspecified] 05-11-2024 Episodic Other connective tissue disease (20 sources) Hand pain; Translations: [Pain in left hand] 06-11-2019 Episodic Other connective tissue disease (20 sources) Pain in hallux; Translations: [Pain in unspecified toe(s)] 10-07-2021 Episodic Other connective tissue disease (20 sources) Tendinitis of right elbow; Translations: [Other enthesopathies, not elsewhere classified] 09-06-2022 Episodic Other connective tissue disease (10 sources) Pain in toe; Translations: [Pain in unspecified toe(s)] 03-18-2023 Episodic Other connective tissue disease (9 sources) Pain in finger; Translations: [Pain in left finger(s)] 05-06-2023 Episodic Other connective tissue disease (1 source) Pain of bilateral hands; Translations: [Pain in right hand] 01-31-2024 Episodic Other connective tissue disease (1 source) H/O: gout; Translations: [Personal history of other diseases of the musculoskeletal system and connective tissue] 12-28-2023 Episodic Other injuries and conditions due to external causes (20 sources) Foreign body in right cornea; Translations: [Foreign body in cornea, right eye, initial encounter] 04-08-2021 Episodic Other injuries and conditions due to external causes (14 sources) Foreign body of eye region; Translations: [Foreign body on external eye, part unspecified, left eye, initial encounter] 12-27-2022 Episodic Other nervous system disorders (3 sources) Other chronic pain; Translations: [Chronic pain of both knees] Onset: 12-27-2023 Chronic Other nervous system disorders (20 sources) Pain in limb; Translations: [Other acute postprocedural pain] 01-06-2020 Episodic Other non-traumatic joint disorders (13 sources) Acute ankle pain; Translations: [Pain in right ankle and joints of right foot] 01-26-2023 Episodic Other non-traumatic joint disorders (9 sources) Joint pain in left hand; Translations: [Pain in joints of left hand] 05-06-2023 Episodic Other non-traumatic joint disorders (11 sources) Joint pain; Translations: [Pain in unspecified joint] 06-08-2023 Episodic Other non-traumatic joint disorders (4 sources) Swelling of finger joint; Translations: [Effusion, unspecified hand] 08-03-2023 Episodic Other non-traumatic joint disorders (3 sources) Joint swelling; Translations: [Effusion, unspecified joint] 01-04-2024 Episodic Other non-traumatic joint disorders (2 sources) Multiple joint pain; Translations: [Pain in unspecified joint] 01-31-2024 Episodic Other non-traumatic joint disorders (2 sources) Ankle pain; Translations: [Pain in right ankle and joints of right foot] 01-31-2024 Episodic Other non-traumatic joint disorders (2 sources) Pain in right shoulder; Translations: [Pain in joint, shoulder region] 05-02-2024 Episodic Other nutritional; endocrine; and metabolic disorders (6 sources) Hyperuricemia; Translations: [Hyperuricemia without signs of inflammatory arthritis and tophaceous disease] 01-18-2024 Episodic Other skin disorders (2 sources) Mass of neck; Translations: [Localized swelling, mass and lump, neck] 03-14-2024 Episodic Other skin disorders (1 source) Localized swelling, mass and lump, neck; Translations: [Neck mass] Onset: 04-21-2024 Episodic Other skin disorders (1 source) Finding of trunk structure; Translations: [Localized swelling, mass and lump, trunk] 05-16-2024 Episodic Other upper respiratory infections (20 sources) Acute laryngitis; Translations: [Acute laryngitis] 03-03-2022 Episodic Residual codes; unclassified (1 source) Pain; Translations: [Pain, unspecified] Episodic Skin and subcutaneous tissue infections (20 sources) Paronychia; Translations: [Paronychia] 01-17-2016 Episodic Spondylosis; intervertebral disc disorders; other back problems (20 sources) Backache; Translations: [Dorsalgia, unspecified] 09-16-2021 Episodic Sprains and strains (20 sources) Sprain of ligament of finger; Translations: [Unspecified sprain of unspecified finger, initial encounter] 02-01-2021 Episodic Superficial injury; contusion (20 sources) Contusion of elbow; Translations: [Contusion of right elbow, initial encounter] 11-26-2021 Episodic Unclassified (1 source) Gout, unspecified / M10.9(ICD-10) Onset: 08-10-2017 Unclassified (1 source) Pain in unspecified joint / M25.50(ICD-10) Onset: 07-20-2017 Past or Other Problems Problem Classification Problem Date Documented Date Episodic/Chronic Malaise and fatigue (11 sources) Asthenia; Translations: [Weakness] Onset: 11-30-2023 11-26-2023 Episodic Other and unspecified benign neoplasm (1 source) Benign lipomatous neoplasm, unspecified; Translations: [Intramuscular lipoma] Onset: 05-16-2024 Episodic Other and unspecified benign neoplasm (1 source) Benign lipomatous neoplasm of skin and subcutaneous tissue of right arm; Translations: [Lipoma of right upper extremity] Onset: 05-16-2024 Episodic Other connective tissue disease (1 source) Pain in right leg; Translations: [Pain in right leg] Onset: 06-11-2023 Episodic Other connective tissue disease (1 source) Pain in unspecified hand; Translations: [Pain in unspecified hand] Onset: 05-07-2023 Episodic Other connective tissue disease (2 sources) Pain in left hand; Translations: [Pain in left hand] Onset: 05-03-2023 Episodic Other connective tissue disease (1 source) Pain in right hand; Translations: [Bilateral hand pain] Onset: 12-27-2023 Episodic Other non-traumatic joint disorders (8 sources) Pain in right knee; Translations: [Pain in joint, lower leg] Onset: 12-23-2023 01-18-2024 Episodic Other non-traumatic joint disorders (2 sources) Pain in left knee; Translations: [Chronic pain of both knees] Onset: 12-27-2023 Episodic Other non-traumatic joint disorders (1 source) Effusion, other site; Translations: [Effusion, other site] Onset: 08-11-2023 Episodic Other non-traumatic joint disorders (1 source) Pain in unspecified joint; Translations: [Pain in joint, multiple sites] Onset: 12-27-2023 Episodic Other non-traumatic joint disorders (1 source) Effusion, unspecified joint; Translations: [Joint swelling] Onset: 12-27-2023 Episodic Other non-traumatic joint disorders (1 source) Pain in right ankle and joints of right foot; Translations: [Chronic pain of both ankles] Onset: 12-27-2023 Episodic Other non-traumatic joint disorders (1 source) Pain in left ankle and joints of left foot; Translations: [Chronic pain of both ankles] Onset: 12-27-2023 Episodic Other nutritional; endocrine; and metabolic disorders (2 sources) Hyperuricemia without signs of inflammatory arthritis and tophaceous disease; Translations: [Hyperuricemia] Onset: 02-09-2024 Episodic Results Test Name Value Interpretation Reference Range Facility [facility] 09-20-2024 [facility] Telephone (DURGA) XIANG WEST ([id number]) 1965 M Date Time Provider Department 09/20/24 MACI DORSEY During your visit today, we recorded the following information about you: Rere De La Torre MA 09/20/2024 10:44 AM Signed Patient called in stating he was seen by Dr. Rhodes for a lipoma. Patient prefers not to travel to [facility]. Do you have someone else that you can recommend he see? He is willing to travel to [place]. María Aguilar 09/20/2024 11:[address] Mendoza office, [facility] is the only place that performs this type of surgery. Spoke with Pablo AND he agreed with a follow up appointment with Dr. Rhodes on 10/03. Allergies As of Date: 09/20/2024 (No Known Allergies) Date Reviewed: 05/29/2024 Reviewed by: Palak Benavidez MA - Fully Assessed Reason for Visit: Patient Update [1234] Prescriptions as of 09/20/2024 - methylPREDNISolone (MEDROL, BARTOLO,) 4 mg Dose-Pack Take 1 tablet by mouth as directed. As directed on package - allopurinol (ZYLOPRIM) 200 mg tablet Take 1 tablet (200 mg) by mouth once daily. - Clindamycin-Benzoyl Peroxide 1-5 % gel as directed - losartan (COZAAR) 50 mg tablet Take 1 tablet by mouth every afternoon. - Cholecalciferol, Vitamin D3, (VITAMIN D) 25 mcg (1,000 unit) cap Take 2 capsules by mouth once daily. - colchicine 0.6 mg tablet May take twice daily for first day then once daily there after - lidocaine (LIDODERM) 5 % Apply 1 Patch as directed once daily. TO AFFECTED AREA. REMOVE AFTER 12 HOURS. - doxycycline monohydrate 100 mg tablet Take 100 mg by mouth once daily. - clobetasol (TEMOVATE) 0.05 % cream - Clindamycin Phosphate (CLEOCIN T) 1 % lotion - CERAVE - BP WASH 2.5 % - amLODIPine (NORVASC) 10 mg tablet Take one(1) tablet daily. - dupilumab (DUPIXENT SYRINGE) 100 mg/0.67 mL injection Inject 100 mg subcutaneously every 2 weeks. - diclofenac (VOLTAREN) 1 % topical gel Apply 2 g to affected area four times a day as needed. TO PAINFUL JOINTS , AVOID CONTACT WITH EYES, DO NOT EXCEED 32GM/DAY Problem List As Of Date: 09/20/2024 (None) Encounter Status:Closed by RERE DE LA TORRE on 09/20/24 Normal [facility] CBC panel Auto (Bld)on 05-29 Erythrocyte distribution width (RBC) [Ratio] 14.0 % Normal 11.5-15.0 [facility] Comment on above: Order Comment: Speci men Type: BLOOD SPECIMENOrdering Facility: [facility] Address: [address] [place] [address] Performed By: #### 5 8410-2 ####[facility] LABIA [id number] [place] [address] [place] Hematocrit (Bld) [Volume fraction] 45.9 % Normal 39.0-51.0 [facility] Comment on above: Order Comment: Speci men Type: BLOOD SPECIMENOrdering Facility: [facility] Address: [address] [place] [address] Performed By: #### 5 8410-2 ####[facility] LABIA [id number] [place] [id number] [place] Hemoglobin (Bld) [Mass/Vol] 15.4 g/dL Normal 13.0-17.0 [facility] Comment on above: Order Comment: Speci men Type: BLOOD SPECIMENOrdering Facility: [facility] Address: [address] [place] [address] Performed By: #### 5 8410-2 ####[facility] LABIA [id number] [place] [address] [place] MCH (RBC) [Entitic mass] 30.7 pg Normal 26.0-34.0 [facility] Comment on above: Order Comment: Speci men Type: BLOOD SPECIMENOrdering Facility: [facility] Address: [address] [place] [address] Performed By: #### 5 8410-2 ####[facility] LABIA [id number] [place] [id number] [place] MCHC (RBC) [Mass/Vol] 33.6 g/dL Normal 30.5-36.0 [facility] Comment on above: Order Comment: Speci men Type: BLOOD SPECIMENOrdering Facility: [facility] Address: [address] [place] [address] Performed By: #### 5 8410-2 ####[facility] LABIA [id number] [place] [id number] [place] MCV (RBC) [Entitic vol] 91.4 fL Normal 80.0-100.[address] [facility] Comment on above: Order Comment: Speci men Type: BLOOD SPECIMENOrdering Facility: [facility] Address: [address] [place] [address] Performed By: #### 5 8410-2 ####[facility] LABIA [id number] [place] [address] [place] Nucleated RBC (Bld) [#/Vol] 10*3/uL Normal <0.01 [facility] Comment on above: Order Comment: Speci men Type: BLOOD SPECIMENOrdering Facility: [facility] Address: [address] [place] [address] Performed By: #### 5 8410-2 ####[facility] DORALIA [id number] [place] [address] [place] Platelet mean volume (Bld) [Entitic vol] 10.6 fL Normal 9.0-12.7 [facility] Comment on above: Order Comment: Speci men Type: BLOOD SPECIMENOrdering Facility: [facility] Address: [address] [place] [address] Performed By: #### 5 8410-2 ####[facility] LABIA [id number] [place] [address] [place] Platelets (Bld) [#/Vol] 283 10*3/uL Normal 150-400 [facility] Comment on above: Order Comment: Speci men Type: BLOOD SPECIMENOrdering Facility: [facility] Address: [address] [place] [address] Performed By: #### 5 8410-2 ####[facility] LABIA [id number] [place] [address] [place] RBC (Bld) [#/Vol] 5.02 10*6/uL Normal 4.20-6.00 [facility] Comment on above: Order Comment: Speci men Type: BLOOD SPECIMENOrdering Facility: [facility] Address: [address] [place] [address] Performed By: #### 5 8410-2 ####[facility] LABCLIA [id number] [place] [address] [facility] [place] WBC (Bld) [#/Vol] 8.08 10*3/uL Normal 3.70-11.00 [facility] Comment on above: Order Comment: Speci men Type: BLOOD SPECIMENOrdering Facility: [facility] Address: [address] [place] [address] Performed By: #### 5 8410-2 ####[facility] LABCLIA [id number] [place] [address] [facility] CNOVon 05-29-2024 CNOV Office Visit (NALDO ) XIANG WEST ([id number]) 1965 M Date Time Provider Department 05/29/24 3:00 PM MALIK MERA During your visit today, we recorded the following information about you: Pulse Blood pressure Weight 77/minute 137/88 117.3 kg Malik Mera, ASSISTANT EDITOR.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 06/20/2024 8:44 AM Signed Rheumatology FOLLOW UP VISIT Referring Provider: Self Date of Service: 05/29/2024 Gender: male Ethnicity: Black Age: [age] year old Chief Complaint: New Last Rheumatology visit: 05/29/2024 (with Malik Mera) Xiang West is a 59 year old Black male who presents on 05/29/2024 for in person visit for follow-up of New. He is currently taking diclofenac sodium, meloxicam, methylprednisolone. INTERVAL HISTORY Under care Rheum PATRICIA Rere Valentino. Working diagnosis is gout Reviewed detailed notes from March 2024. Currently on allopurinol 200 mg per day and uric acid is at target. Having more knee pain and swelling, gets stiff can't bend knee well with that happens. Intermittent medrol used. PAIN EVALUATION No data found in the last 1 encounters. Impression Diagnoses: (M10.9) Gout with manifestations (primary encounter diagnosis) Stable gout Plan (M10.9) Gout with manifestations (primary encounter diagnosis) Comment: Gout, stable Will continue on current allopurinol if labs are ok Intermittent knee pain, will give short medrol dose pack now Ok for mobic to resume after that. 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 I spent a total of 20 minutes on the date of the service which included preparing to see the patient, [id number] patient care, completing clinical documentation, obtaining and/or reviewing separately obtained history, performing a medically appropriate examination, and counseling and educating the patient/family/caregiv er. Malik Mera APRN.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 cc: PCP: Rere Aguiar MD ([facility]) [address] [place] [address] Subjective HISTORY OF PRESENT ILLNESS Gout- Treatment: Allopurinol 200mg daily Uric acid 8.3 in early 2023. Age at start of MSK symptoms: 48 years Joint pain: right knee, left knee, right ankle, left ankle, right MCP, right PIP, left MCP, left PIP, right toes, left toes, right MTP, left MTP No gelling xr knees-> Mild bilateral knee osteoarthritis xr hands-> Mild osteoarthritis + family hx of gout. INTERVAL HISTORY Under care Rheum PATRICIA Rere Valentino. Working diagnosis is gout Reviewed detailed notes from March 2024. Currently on allopurinol 200 mg per day and uric acid is at target. Having more knee pain and swelling, gets stiff can't bend knee well with that happens. Intermittent medrol used. Disease History Gout History Frequency of attacks at initial presentation: patient is unsure sometimes called gout attacks and other times not . he is not sure. more frequently RISK FACTORS No diuretic use No use of low dose aspirin No use of cyclosporine Family history: uncle Diet: cutting back recently on red meat, trying to increase water intake No chronic kidney disease Hypertension No congestive heart failure No coronary artery disease No obstructive sleep apnea No history of kidney stones No metabolic disease No solid organ transplant Alcohol Use: Yes (occasional use) Autoimmune Disease History No dry eyes no dry mouth Musculoskeletal History Age at start of MSK symptoms: 48 years Joint pain: right knee, left knee, right ankle, left ankle, right MCP, right PIP, left MCP, left PIP, right toes, left toes, right MTP, left MTP No gelling Joint swelling (Comment: Kees, ankles, hands - pips) Anything make it better?: Yes (Comment: prednisone, pains meds,) Knee popping, locking, or clicking?: Yes (Comment: feels straight locked because swelling) Knee gives way or falls?: No No joint replacements Other Arthritis-related Surgery Location Date Comment right elbow sx Patient-Entered Data PROMIS Assessments No data to display No data to display No data to display No data to display PHQ-9 0 - 4: Minimal Depression 5 - 9: Mild Depression 10 - 14: Moderate Depression 15 - 19: Moderately Severe Depression 20 - 27: Severe Depression Objective Treatment History Musculoskeletal Pain - Treatments Tried Ice: Yes more painful Heat: No Brace: No NSAIDs/Tylenol: Yes Treatment Start Date Stop Date Stop Reason Comment asa does not help motrin, ibuprofen does not help mobic helps Gout Treatments Treatment Start Date Stop Date Stop Reason Comment allopuri (more content not included)... Normal [facility] CRP SerPl-ncon 05-29-2024 CRP [Mass/Vol] mg/L Normal <0.9 [facility] Comment on above: Order Comment: Speci men Type: BLOOD SPECIMENOrdering Facility: [facility] Address: [address] [place] [address] Performed By: #### 2 4323-8, 1987-, 308- ####[facility] LABCLIA [id number] [place] [address] [place] Comprehensive metabolic 2000 panelon 05-29-2024 Albumin [Mass/Vol] 4.4 g/dL Normal 3.9-4.9 [facility] Comment on above: Order Comment: Speci men Type: BLOOD SPECIMENOrdering Facility: [facility] Address: [address] [place], [place] [address] Performed By: #### 2 4323-8, 1988-03, 3083-11 ####[facility] LABCLIA [id number] [place] [address] [place] ALP [Catalytic activity/Vol] 92 U/L Normal 38-113 [facility] Comment on above: Order Comment: Speci men Type: BLOOD SPECIMENOrdering Facility: [facility] Address: [address] [place] [address] Performed By: #### 2 4328, 1988-03, 3083-11 ####[facility] LABCLIA [id number] [place] [address] [place] ALT [Catalytic activity/Vol] 19 U/L Normal 10-54 [facility] Comment on above: Order Comment: Speci men Type: BLOOD SPECIMENOrdering Facility: [facility] Address: [address] [place] [address] Performed By: #### 2 4323-8, 1988-03, 3083-11 ####[facility] LABCLIA [id number] [place] [address] [place] Anion gap [Moles/Vol] 9 mmol/L Normal 8-15 [facility] Comment on above: Order Comment: Speci men Type: BLOOD SPECIMENOrdering Facility: [facility] Address: [address] [place] [address] Performed By: #### 2 4323-8, 1988-03, 3083-11 ####[facility] LABCLIA [id number] [place] [address] [place] AST [Catalytic activity/Vol] 22 U/L Normal 14-40 [facility] Comment on above: Order Comment: Speci men Type: BLOOD SPECIMENOrdering Facility: [facility] Address: [address] [place] [address] Performed By: #### 2 432-8, 1988-03, 3083-11 ####[facility] LABCLIA [id number] [place] [address] [place] Bilirubin [Mass/Vol] 0.3 mg/dL Normal 0.2-1.3 [facility] Comment on above: Order Comment: Speci men Type: BLOOD SPECIMENOrdering Facility: [facility] Address: [address] [place] [address] Performed By: #### 2 4323-8, 1988-03, 3083-11 ####[facility] LABCLIA [id number] [place] [address] [place] Calcium [Mass/Vol] 9.3 mg/dL Normal 8.5-10.2 [facility] Comment on above: Order Comment: Speci men Type: BLOOD SPECIMENOrdering Facility: [facility] Address: [address] [place] [address] Performed By: #### 2 4323-8, 1988-03, 3083-11 ####[facility] LABCLIA [id number] [place] [address] [place] Chloride [Moles/Vol] 104 mmol/L Normal 98-107 [facility] Comment on above: Order Comment: Speci men Type: BLOOD SPECIMENOrdering Facility: [facility] Address: [address] [place] [address] Performed By: #### 2 4323-8, 1988-03, 3083-11 ####[facility] LABCLIA [id number] [place] [address] [place] CO2 [Moles/Vol] 25 mmol/L Normal 22-30 [facility] Comment on above: Order Comment: Speci men Type: BLOOD SPECIMENOrdering Facility: [facility] Address: [address] [place] [address] Performed By: #### 2 4323-8, 1988-03, 3083-11 ####[facility] LABIA [id number] [place] [address] [place] Creatinine [Mass/Vol] 1.10 mg/dL Normal 0.73-1.22 [facility] Comment on above: Order Comment: Trang crystal Type: BLOOD SPECIMENOrdering Facility: [facility] Address: [address] [place], [place] [address] Performed By: #### 2 4323-8, 1988-03, 3083-11 ####[facility] DORALIA [id number] [place] [address] [facility] Creatinine and Glomerular filtration rate.predicted panel (S/P/Bld) 76 mL/min/1.73m??? Normal >=60 [facility] Comment on above: Order Comment: Trang crystal Type: BLOOD SPECIMENOrdering Facility: [facility] Address: [address] [place] [address] Result Comment: Laxmi mated Glomerular Filtration Rate (eGFR) is calculated using the 2020 CKD-EPI creatinine equation. This equation utilizes serum creatinine, sex, and age as parameters. The creatinine assay has traceable calibration to isotope dilution-mass spectrometry. Refer to KDIGO guidelines for clinical interpretation. In patients with unstable renal function, e.g. those with acute kidney injury, the eGFR may not accurately reflect actual GFR. Performed By: #### 2 4323-8, 1988-03, 3083-11 ####[facility] LABIA [id number] [place] [address] [place] Glucose [Mass/Vol] 85 mg/dL Normal 74-99 [facility] Comment on above: Order Comment: Trang crystal Type: BLOOD SPECIMENOrdering Facility: [facility] Address: [address] [place] [address] Result Comment: The [place] Diabetes Association (ADA) provides guidance for cutoff values for fasting glucose and random glucose. The ADA defines fasting as no caloric intake for at least 8 hours. Fasting plasma glucose results between 100 to 125 mg/dL indicate increased risk for diabetes (prediabetes). Fasting plasma glucose results greater than or equal to 126 mg/dL meet the criteria for diagnosis of diabetes. In the absence of unequivocal hyperglycemia, results should be confirmed by repeat testing. In a patient with classic symptoms of hyperglycemia or hyperglycemic crisis, random plasma glucose results greater than or equal to 200 mg/dL meet the criteria for diagnosis of diabetes. Reference: Standards of Medical Care in Diabetes 2016, [place] Diabetes Association. Diabetes Care. 2016.39(Suppl 1). Performed By: #### 2 4323-06, 3083-11 ####[facility] LABCLIA [id number] [place] [address] [place] Potassium [Moles/Vol] 4.3 mmol/L Normal 3.7-5.1 [facility] Comment on above: Order Comment: Speci men Type: BLOOD SPECIMENOrdering Facility: [facility] Address: [address] [place], [place] [address] Performed By: #### 2 4323-06, 3083-11 ####[facility] LABIA [id number] [place] [address] [place] Protein [Mass/Vol] 7.6 g/dL Normal 6.3-8.0 [facility] Comment on above: Order Comment: Speci men Type: BLOOD SPECIMENOrdering Facility: [facility] Address: [address] [place] [address] Performed By: #### 2 4323-06, 3083-11 ####[facility] LABIA [id number] [place] [address] [place] Sodium [Moles/Vol] 138 mmol/L Normal 136-144 [facility] Comment on above: Order Comment: Speci men Type: BLOOD SPECIMENOrdering Facility: [facility] Address: [address] [place] [address] Performed By: #### 2 43202-03, 3083-11 ####[facility] LABCLIA [id number] [place] [address] [place] Urea nitrogen [Mass/Vol] 17 mg/dL Normal 9-24 [facility] Comment on above: Order Comment: Speci men Type: BLOOD SPECIMENOrdering Facility: [facility] Address: [address] [place] [address] Performed By: #### 2 4323-8, 1988-03, 3083-11 ####[facility] LABIA [id number] [place] [id number] [place] ESR Westergren method (Bld) [Velocity]on 05-29-2024 ESR (Bld) [Velocity] 5 mm/h Normal 0-15 [facility] Comment on above: Order Comment: Speci men Type: BLOOD SPECIMENOrdering Facility: [facility] Address: [address] [place] [address] Performed By: #### 4 537-7 ####[facility] LABCLIA [id number] [address] [place] Urate SerPl-mCncon 4 Urate [Mass/Vol] 3.3 mg/dL Low 4.0-8.1 [facility] Comment on above: Order Comment: Speci men Type: BLOOD SPECIMENOrdering Facility: [facility] Address: [address] [place] [address] Performed By: #### 2 4323-8, 1988-03, 3083-11 ####[facility] LABCLIA [id number] [place] [id number] [place] CNOVon 05-16-2024 CNOV Office Visit (ORTHMN ) XIANG WEST ([id number]) 1965 M Date Time Provider Department 05/16/24 1:00 PM LUIS MIGUEL RHODES ORTHMN During your visit today, we recorded the following information about you: Luis Miguel Rhodes MD 05/16/2024 2:30 PM Signed Orthopaedic Oncology New Patient Evaluation Chief Complaint: Lipomatous mass, right side back/shoulder area Referring Physician: Peggy Hunter History of Present Illness: Xiang West is a LHD 58 year old year old male who presents for evaluation of the above chief complaint. States that he has had a mass on his upper back for the last 10 years. Notes that he thinks been growing over the last 6. He has no pain at rest. He does have some minor pain when reaching overhead and out in front of himself. He denies notes tingling to his right upper extremity. He denies personal cancer history. He denies other masses. Review of Systems: Review of systems is positive for chest wall mass. Other complete ROS is questioned and negative. PAST MEDICAL HISTORY Diagnosis Date Hypertension PAST SURGICAL HISTORY Procedure Laterality Date COLONOSCOPY FLX DX W/COLLJ SPEC WHEN PFRMD 02/04/2015 Colonoscopy PAST SURGICAL HISTORY OF Right Right elbow surgery ALLERGIES No Known Allergies Current Outpatient Medications on File Prior to Visit Medication Sig allopurinol (ZYLOPRIM) 200 mg tablet Take 1 tablet (200 mg) by mouth once daily. Clindamycin-Benzoyl Peroxide 1-5 % gel as directed losartan (COZAAR) 50 mg tablet Take 1 tablet by mouth every afternoon. predniSONE (DELTASONE) 20 mg tablet Take 1 tablet by mouth every afternoon. Cholecalciferol, Vitamin D3, (VITAMIN D) 25 mcg (1,000 unit) cap Take 2 capsules by mouth once daily. colchicine 0.6 mg tablet May take twice daily for first day then once daily there after lidocaine (LIDODERM) 5 % Apply 1 Patch as directed once daily. TO AFFECTED AREA. REMOVE AFTER 12 HOURS. doxycycline monohydrate 100 mg tablet Take 100 mg by mouth once daily. meloxicam (MOBIC) 7.5 mg tablet Take 1 tablet by mouth every afternoon. clobetasol (TEMOVATE) 0.05 % cream Clindamycin Phosphate (CLEOCIN T) 1 % lotion CERAVE BP WASH 2.5 % oxyCODONE-acetaminophe n (PERCOCET) 5-325 mg tablet Take one(1) tablet every six(6) hours as needed. (Patient not taking: Reported on 04/03/2024) amLODIPine (NORVASC) 10 mg tablet Take one(1) tablet daily. dupilumab (DUPIXENT SYRINGE) 100 mg/0.67 mL injection Inject 100 mg subcutaneously every 2 weeks. diclofenac (VOLTAREN) 1 % topical gel Apply 2 g to affected area four times a day as needed. TO PAINFUL JOINTS , AVOID CONTACT WITH EYES, DO NOT EXCEED 32GM/DAY No current facility-administered medications on file prior to visit. FAMILY HISTORY Problem Relation Age of Onset Cancer Mother thyroid Asthma Father Social History Tobacco Use Smoking status: Never Passive exposure: Never Smokeless tobacco: Never Vaping Use Vaping Use: Never used Substance Use Topics Alcohol use: Yes Comment: occasional use Drug use: No Physical Examination: There were no vitals taken for this visit. General: alert, oriented, no acute distress Skin: No visible skin lesions HEENT: normocephalic, extraocular movements intact, mucous membranes moist/intact Cardiovascular: pulse regular, no lower extremity edema Pulmonary: normal respiratory effort and chest wall excursion Right shoulder: Normal overlying skin. No erythema or induration. No axillary or cervical lymphadenopathy. There is a large approximately 15 cm lipomatous mass on his right upper back in the rhomboid/trapezius area. Symmetric muscle bulk and tone. Shoulder range of motion is 100% of total active elevation. 170 forward flexion, 170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 FACTORS No diuretic use No use of low dose aspirin No use of cyclosporine Family history: uncle Diet: cutting back recently on red meat, trying to increase water intake No chronic kidney disease Hypertension No congestive heart failure No coronary artery disease No obstructive sleep apnea No history of kidney stones No metabolic disease No solid organ transplant Pain Evaluation 04/20/2023 04/28/2023 12/27/2023 03/15/2024 04/03/2024 Pain Evaluation Pain Score 8 7 4 8 Location Hand-Left Hand-Left Knee-Right Knee-Right Knee-Right Description Aching;Throbbing;Sore; Shooting Sharp;Stabbing;Throbbi ng;Aching;Sore;Numbnes s;Tingling Aching Aching Aching;Sore Duration (#) 1 2 2 5 Duration (Timeframe) Weeks Weeks Days Unknown Days Frequency Continuous Intermittent Continuous Intermittent Continuous Intervention Medication Medication Patient-Entered Data PROMIS Assessments No data to display No data to display No data to display No data to display RAPID 3 Maher Activities of Daily Living No Data Dress self? - Get in and out of bed? - Walk outdoors? - Wash and dry body? - Get in and out of car? - RAPID 3 Disease Activity Weighed Score Levels: 0 - 1: Near Remission 1.3 - 2.0: Low Severity 2.3 - 4.0: Moderate Severity 4.3 - 10.0: High Severity No data to display Review of Systems Review of Systems CONSTITUTION: Negative for: Weight loss or gain, Fever. Chills, Night sweats HEENT: Negative for: Nosebleeds, Mouth sores, Trouble swallowing, Dry mouth RESPIRATORY: Negative for: Cough, Shortness of breath, Pain with breathing, Coughing up blood G (more content not included)... Normal [facility] 04-03-2024 ANTHONYN Telephone (AGUSTÍN) XIANG WEST ([id number]) 1965 M Date Time Provider Department 04/03/24 RERE VALENTINO During your visit today, we recorded the following information about you: Rere Valentino APRN.[facility] 04/06/2024 11:49 PM Signed Please call patient Normal labs Please continue plan Latest Ref Rng 04/03/2024 Creatinine 0.73 - 1.22 mg/dL 1.07 eGFR >=60 mL/min/1.73m? 79 Vitamin D 25 Hydroxy 31.0 - 80.0 ng/mL 40.4 PTH, Intact 15 - 65 pg/mL 42 Uric Acid 4.0 - 8.1 mg/dL 4.3 Tc Ruiz MA 04/07/2024 11:15 AM Signed Lm regarding results and recommendations. Blanche Garcia 04/07/2024 11:53 AM Signed Patient returning call in regards to missed call. Please contact patient. Senia Thurston MA 04/07/2024 12:02 PM Signed Left message for patient to call office regarding below. Tc Ruiz MA 04/20/2024 11:09 AM Signed Lm regarding results and recommendations. Allergies As of Date: 04/03/2024 (No Known Allergies) Date Reviewed: 04/03/2024 Reviewed by: Senia Thurston MA - Fully Assessed Prescriptions as of 04/20/2024 - allopurinol (ZYLOPRIM) 100 mg tablet Take 2 tablets by mouth every afternoon. - Clindamycin-Benzoyl Peroxide 1-5 % gel as directed - allopurinol (ZYLOPRIM) 200 mg tablet Take 1 tablet (200 mg) by mouth once daily. - losartan (COZAAR) 50 mg tablet Take 1 tablet by mouth every afternoon. - predniSONE (DELTASONE) 20 mg tablet Take 1 tablet by mouth every afternoon. - Cholecalciferol, Vitamin D3, (VITAMIN D) 25 mcg (1,000 unit) cap Take 2 capsules by mouth once daily. - colchicine 0.6 mg tablet May take twice daily for first day then once daily there after - lidocaine (LIDODERM) 5 % Apply 1 Patch as directed once daily. TO AFFECTED AREA. REMOVE AFTER 12 HOURS. - doxycycline monohydrate 100 mg tablet Take 100 mg by mouth once daily. - meloxicam (MOBIC) 7.5 mg tablet Take 1 tablet by mouth every afternoon. - clobetasol (TEMOVATE) 0.05 % cream - Clindamycin Phosphate (CLEOCIN T) 1 % lotion - CERAVE - BP WASH 2.5 % - oxyCODONE-acetaminophe n (PERCOCET) 5-325 mg tablet Take one(1) tablet every six(6) hours as needed. - amLODIPine (NORVASC) 10 mg tablet Take one(1) tablet daily. - dupilumab (DUPIXENT SYRINGE) 100 mg/0.67 mL injection Inject 100 mg subcutaneously every 2 weeks. - diclofenac (VOLTAREN) 1 % topical gel Apply 2 g to affected area four times a day as needed. TO PAINFUL JOINTS , AVOID CONTACT WITH EYES, DO NOT EXCEED 32GM/DAY Problem List As Of Date: 04/03/2024 (None) Encounter Status:Closed by TC RUIZ on 04/07/24 Normal [facility] CREATININE BLDon 04-03-2024 Creatinine [Mass/Vol] 1.07 mg/dL Normal 0.73-1.22 [facility] Comment on above: Order Comment: Speci men Type: BLOOD SPECIMENOrdering Facility: [facility] Address: [address] [place] [address] Performed By: #### 3 084-1, CRET1 ####[facility] [id number] [place] [address] [place] Creatinine and Glomerular filtration rate.predicted panel (S/P/Bld) 79 mL/min/1.73m??? Normal >=60 [facility] Comment on above: Order Comment: Speci men Type: BLOOD SPECIMENOrdering Facility: [facility] Address: [address] [place] [address] Result Comment: Laxmi mated Glomerular Filtration Rate (eGFR) is calculated using the 2020 CKD-EPI creatinine equation. This equation utilizes serum creatinine, sex, and age as parameters. The creatinine assay has traceable calibration to isotope dilution-mass spectrometry. Refer to KDIGO guidelines for clinical interpretation. In patients with unstable renal function, e.g. those with acute kidney injury, the eGFR may not accurately reflect actual GFR. Performed By: #### 3 084-1, CRET1 ####[facility] [id number] [place] [address] [place] PTH-Intact SerPl-mCncon 05-0 Parathyrin.intact [Mass/Vol] 42 pg/mL Normal 15-65 [facility] Comment on above: Order Comment: Speci men Type: BLOOD SPECIMENOrdering Facility: [facility] Address: [address] [place] [address] Performed By: #### 2 731-8 ####[facility] [id number] [place] [address] [place] Urate SerPl-mCncon 4 Urate [Mass/Vol] 4.3 mg/dL Normal 4.0-8.1 [facility] Comment on above: Order Comment: Speci men Type: BLOOD SPECIMENOrdering Facility: [facility] Address: [address] [place] [id number] Performed By: #### 3 084-1, CREPriscila ####[facility] KEILY GARY [id number] [place] [id number] [place] [address] OF [facility] CNPNon 03-22-2024 CNPN Telephone (JOSEULAnita) XIANG WEST ([id number]) 1965 M Date Time Provider Department 03/22/24 RERE VALENTINO During your visit today, we recorded the following information about you: Kristyn Cornejo 03/22/2024 8:56 AM Signed Pt called with concerns regarding meds. May be some confusion. Pt ran out of allopurinol as he started taking this twice daily. Pt is asking if losartan is replacing the allopurinol as he just picked this up from the pharmacy but I do not see this on the current med list. Please call pt to discuss and clarify. Patient has been identified by name and birthdate. Duration of symptoms: N/A Person calling: self Call patient at: on cell [phone] (home) [phone] (cell) Was an appointment scheduled: No Closing statement: Results or non-symptom based questions: Thank you for calling [facility], your call will be returned within the next business day. Senia Lindquist MA 03/22/2024 10:15 AM Signed Left message for patient to call office regarding below. Please inform pt : Pt was prescribed Losartan for his BP ordered by outside provider At last ov with Rere (03/15/24) -- pt reported that he as taking Allopurinol more than prescribed -- pt was instructed to take 200mg - 1 tablet once daily - pt reported that he was take 2 tabs daily for the past 3 wks . -Pt was instructed at that time to go back to taking 1 tab daily.(200mg tablet) Colchicine was sent in at his last OV (03/15/24) for Gout which is a new medication COLCHICINE 0.6 MG TABLET Sig: take 1 tablet by mouth twice a day for 1 day then 1 once daily THEREAFTER Dispensed: 03/15/2024 12:00 AM Unit strength: 0.6 mg Unit form: tablet Days supply: 30 Quantity: 30 Each Refills remainin Pharmacy: [id number] [place] [address] [address] [facility] - [phone] [address] [facility] [id number] Authorizing provider: Rere Valentino APRN.[facility] [address] [facility] [address] Pt should only be taking Allopurinol 200mg - 1 tab daily pt should continue on Losartan for his blood pressure prescribed by outside physician LOSARTAN POTASSIUM 50 MG TAB Sig: take 1 tablet by mouth once daily Dispensed: 03/20/2024 12:00 AM Unit strength: 50 mg Unit form: tablet Days supply: 90 Quantity: 90 Each Refills remainin Pharmacy: [id number] [place] [address] [address] [facility] [phone] [address] [facility] [address] Authorizing provider: Rere Aguiar E [address] [address] It also looks like pt was prescribed Prednisone for outside physician on 03/21/24 PREDNISONE 20 MG TABLET Sig: take 1 tablet by mouth once daily if needed Dispensed: 03/21/2024 12:00 AM Unit strength: 20 mg Unit form: tablet Days supply: 15 Quantity: 15 Each Refills remainin Pharmacy: [id number] [place] [address] [address] [facility] [phone] [id number] [address] [facility] [address] Authorizing provider: Rere Aguiar [address] [facility] [address] After review : It doesn't look like pt picked up the 200mg tablet - only 100mg tablet -- Please verify pt's bottle with you to see what he actually has on hand . If he does not have the 200mg tablet on hand - we can send him a new prescription Rere Valentino, NAVEEN.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 03/22/2024 11:19 PM Signed I sent more allopurinol Please clarify meds as below mentions Also why is he taking more pred and what was this prescribed for Senia Thurston MA 03/23/2024 11:12 AM Signed Spoke with patient -- requesting that I call him back after 2pm --I route to Derm appt and did not have his med bottles to review Bethany Tee RN 03/23/2024 2:56 PM Signed -Pt returning call to office. Pt identified by name and date. Pt given message as detailed below and verbalized understanding. -Pt updated medications as detailed below. Prednisone--Pt takes this PRN for knee pain/states has not taken this recently Meloxicam--Pt knows he should not take this with the steroid/is not taking this medication at this time Losartan--Pt is taking one 50 mg tablet daily Allopurinol--Pt had 100 mg tablets on hand which is why he was taking 2 tablets daily/will only take one 200 mg tablet daily once he receives his new supply -Pt states there is an issue with his hospital pharmacy in [place], so all prescriptions do need to go to his [facility] pharmacy. States the hospital pharmacy team was supposed to switch pharmacies for him for his allopurinol prescript (more content not included)... Normal [facility] Emergency Department Summary on 03-21-2024 Emergency Department Summary [facility] Medical Records Department [address] [place] [address] Emergency Department Summary 03/21/24 MR#: [id number] Acct: [id number] Name: XIANG WEST Rep #: [id number] : 1965 58 From: Idris Capellan DO PCP: Dr. Rere Aguiar MD Status:DEP ER Location: ED HPI History of Present Illness Chief Complaint: Upper Extremity Injury Informant: patient Narrative Narrative: 58-year-old male states he was getting out of a car today with his hand car door in between the frame and the window and the armor reconnaissance vehicle driver put the window up. This trapped his right middle finger. He notes the pain is significantly gotten better. He was able to complete his dentist appointment that he was going to. He states that he still has some paresthesias to the middle finger. He points to the area from the PIP to the DIP as the injured area. He denies any nailbed injury [facility] Medical History Cataract Gout Home Medications allopurinol 100 mg tablet 100 mg PO DAILY gout 30 days #30 tabs 11/29/23 [Rx Last Taken Unknown] amlodipine 10 mg tablet 10 mg PO DAILY 30 days #30 tabs 11/29/23 [Rx Last Taken Unknown] oxycodone-acetaminophe n 5 mg-325 mg tablet 1 tab PO Q6H PRN PRN Pain 3 days #12 TABLETS 12/20/23 [Rx Last Taken Unknown] prednisone 20 mg tablet 60 mg (3 x 20 mg) PO DAILY #15 TABLETS 12/20/23 [Rx Last Taken Unknown] Allergy/AdvReac Type Severity Reaction Status Date / Time No Known Allergies Allergy Verified 03/21/24 12:04 Family History Mother Cancer Surgical History H/O eye surgery Social History household members: other Smoking Status: Never smoker substance use type: does not use ROS ROS ED Constitutional Constitutional ED: Denies chills or weight loss Eyes Eyes: Denies change in vision or diplopia ENT ENT ED: Denies ear pain, rhinorrhea or sore throat Cardiovascular Cardiovascular: Denies chest pain, orthopnea, palpitations or racing heartbeat Respiratory/Chest Respiratory/Chest: Denies cough, dyspnea or orthopnea Gastrointestinal Gastrointestinal: Denies abdominal pain, diarrhea, nausea or vomiting Genitourinary Genitourinary ED: Denies dysuria, hematuria or urinary frequency Musculoskeletal Musculoskeletal: Reports other Details: see HPI ; Denies arthralgias or myalgias Integumentary Denies abscess or rash Neurologic Neurologic: Reports paresthesias; Denies headache(s) or weakness Psychiatric Psychiatric: Denies anxiety, depression, suicidal ideation or suicidal thoughts Endocrine Endocrinology: Denies polydipsia, polyphagia or polyuria Allergic/Immunologic Allergic/Immunologic ED: Denies mouth swelling, tongue swelling or urticaria EXAM Physical Exam Const Vital Signs: 03/21/24 12:05 Temperature 98.3 F Temperature Source Temporal Pulse Rate 66 Respiratory Rate 16 Blood Pressure 174/104 H Blood Pressure Mean 127 Pulse Ox 100 Oxygen Delivery Method Room Air Positive well nourished and well developed General Appearance ED: well developed HEENT Reports normocephalic, head/scalp atraumatic and moist mucous membranes Eyes PERRL and EOMs intact bilaterally Neck full ROM, no lymphadenopathy, supple and no JVD Resp normal respiratory effort and clear to auscultation bilaterally Cardio regular rate, regular rhythm and no murmurs GI normal to inspection, nondistended, normoactive bowel sounds and non-tender Palpation: soft Back/Spine no CVA tenderness and normal ROM Extremity Extremity Narrative: Right middle finger shows no overt signs of trauma. No significant swelling. No breaks in the skin. The nail and nailbed appear normal. Neurovascularly appears intact there are reports of decreased sensation of the volar middle phalanx region. Direct testing of the extensor as well as flexor tendons appears intact. General Extremety ED: Negative for edema General Extremity: Negative for edema Neuro oriented x3 and CN's II-XII intact bilaterally Sensorium / Orientation: alert Motor Exam: strength 5/5 throughout Psych mental status grossly normal Mood Affect: Negative for depressed or tearful Skin no rashes or lesions noted and no wounds MDM MDM MDM Narrative Medical decision making narrative: My independent interpretation of the plain films of the right hand is no acute fracture. Patient be discharged home with supportive care Tylenol and/or Motrin for pain. Ice as needed follow-up 10 to 14 days if not improved History Record Review Discussion w/independent historian: Patient Radiography Diagnostic Testing: Clinical Impression(s) from Imaging Studie (more content not included)... Normal [facility] Hand Min 3 Viewson 4 Hand Min 3 Views [facility] Imaging Services [address] [place] [address] Hand Min 3 Views MR#: [id number] Acct: [id number] Name: XIANG WETS Rep #: [id number] : 1965 M 58 From: Americo hale MD PCP: Dr. Rere Aguiar MD Status: PRE ER Study: Hand Min 3 Views Date of Exam: 03/21/24 Exam# [id number] Ordering Dr: Idris Capellan DO [id number] STUDY: X-RAY - RIGHT HAND REASON FOR EXAM: Male, 58 years old. Pain, swelling, middle finger TECHNIQUE: 3 view(s) of the hand. COMPARISON: None. FINDINGS: Normal radiocarpal articulation. Normal distal radioulnar joint. Normal visualized carpal bones. Normal carpal articulations Normal carpometacarpal articulation of the thumb. Normal second through fifth carpometacarpal joints. Normal metacarpi. Normal metacarpophalangeal joint of the thumb. Normal interphalangeal joint of the thumb. Normal proximal and distal phalanges of the thumb. Normal metacarpophalangeal joints of the second through fifth fingers. Normal proximal and distal interphalangeal joints of the second through fifth fingers. Normal phalanges of the second through fifth fingers. The soft tissue structures are unremarkable. RAD/Hand Min 3 Views IMPRESSION: Normal x-ray examination of the hand. Electronically Signed: Americo Lanier MD at 13:02 EDT , CC: Dr. Rere Aguiar MD; Dr. Idris Capellan DO Weekend Anchor: Signed Normal [facility] CNOVon 03-15-2024 CNOV Office Visit (AGUSTÍN ) XIANG WEST ([id number]) 1965 Alfredo Date Time Provider Department 03/15/24 8:00 AM RERE VALENTINO During your visit today, we recorded the following information about you: Temperature Pulse Blood pressure Weight 98.3 degrees 67/minute 156/90 116.3 kg Rere Valentino, NAVEEN.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 03/15/2024 10:52 PM Signed Rheumatology FOLLOW UP VISIT Date of Service: 03/15/2024 Patient: Xiang West Medical Record: [id number] Primary Care Physician: Rere Aguiar MD Last Rheumatology visit: 02/02/2024 (with Rere Valentino) History of Present Illness Xiang West is a 58 year old Black male who presents on 03/15/2024 for an in-person visit for evaluation of Right Knee Pain (continues to have R knee pain, stiffness and swelling -- last dose of Prednisone 4 days ago -- requesting refill of Prednisone, Vit D and lidocaine patch ). He is currently taking diclofenac sodium, prednisone. Xiang reports a current pain level of 4 (Knee-Right). He describes the pain as Aching. The pain is Intermittent . Onset of symptoms began at age 48. Xiang is both RF - 10 (12/27/2023) and CCP - 13.5 (12/27/2023) negative. His most recent VIRY was negative (12/27/2023). There are no rheumatoid nodules present. Xiang has joint swelling (Kees, ankles, hands - pips). Xiang reports he does not have any morning stiffness. HISTORY OF PRESENT ILLNESS Only see rheumatology 1 visit in the past Multiple ER visits for joint pain History gout? Allopurinol 100mg daily Went to ER twice in last few weeks Several years joint Intermittent can go months without anything or multiple times month Pains - Knees, ankles, pips, mcps, toes Swelling - ankles , toes, knees, pips, mcps Am stiffness - no If joints stiff and swollen only gets worse not better Feels locked in position Unless having flare no am stiffness Last time could not get out of bed for 4 days Could not bend either knees Painful stiff swelling Used to be able to work it out but not does not stop pain gets worse Pain stiffness swelling relieved with prednisone No redness Does have tenderness when happens No known history RA or lupus Family history gout Not increased stress No infection proceeding INTERVAL HISTORY Walking more Right knee started with pain Feels tight Started 3-4 days ago He thinks it was alittle swollen ? Swelling now Took pred 10mg for 2 days Was taking mobic Did not have any recent sudden Attacks of knee locking / and severe swelling Feeling much better than he as prior [facility] is where he goes Prescribed allopurinol 200mg daily Was confused and taking 400mg daily maybe for 3 weeks Drinking plenty water Musculoskeletal History Age at start of MSK symptoms: 48 years Joint pain: right knee, left knee, right ankle, left ankle, right MCP, right PIP, left MCP, left PIP, right toes, left toes, right MTP, left MTP No gelling Joint swelling (Comment: Kees, ankles, hands - pips) Anything make it better?: Yes (Comment: prednisone, pains meds,) Knee popping, locking, or clicking?: Yes (Comment: feels straight locked because swelling) Knee gives way or falls?: No No joint replacements Other Arthritis-related Surgery Location Date Comment right elbow sx Gout History Frequency of attacks at initial presentation: patient is unsure sometimes called gout attacks and other times not . he is not sure. more frequently RISK FACTORS No diuretic use No use of low dose aspirin No use of cyclosporine Family history: uncle Diet: cutting back recently on red meat, trying to increase water intake No chronic kidney disease Hypertension No congestive heart failure No coronary artery disease No obstructive sleep apnea No history of kidney stones No metabolic disease No solid organ transplant Pain Evaluation 09/03/2017 04/20/2023 04/28/2023 12/27/2023 03/15/2024 Pain Evaluation Pain Score 9 8 7 4 Location Hand-Right Hand-Left Hand-Left Knee-Right Knee-Right Location Comment Right middle finger Description Pressure;Tingling Aching;Throbbing;Sore; Shooting Sharp;Stabbing;Throbbi ng;Aching;Sore;Numbnes s;Tingling Aching Aching Duration (#) 2 1 2 2 Duration (Timeframe) Months Weeks Weeks Days Unknown Frequency Continuous Continuous Intermittent Continuous Intermittent Intervention Medication Medication Medication Patient-Entered Data PROMIS Assessments No data to display No data to display No data to display No data to display RAPID 3 Maher Activities of Daily Living No Data Dress self? - Get in and out of bed? - Walk outdoors? - Wash and dry body? - Get in and out of car? - RAPID 3 Disease Activity Weighed Score Levels: 0 - 1: Near Remission 1.3 - 2.0: Low Severity 2.3 - 4.0: Moderate Severity 4.3 - 10.0: High Severity No data to display Review of Systems (more content not included)... [facility] G[facility]AN Telephone (AGUSTÍN) XIANG WEST ([id number]) 1965 Alfredo Date Time Provider Department 03/15/24 RERE VALENTINO During your visit today, we recorded the following information about you: Rere Valentino, NAVEEN.[facility] 03/15/2024 10:32 PM Signed Please call [facility] and try to obtain knee aspiration records Maybe around 2017 Senia Thurston MA 03/17/2024 8:49 AM Signed called [facility] they are in process of faxing records to our office [phone] Senia Thurston MA 03/17/2024 9:01 AM Signed records received placed on Rere's desk for review Allergies As of Date: 03/15/2024 (No Known Allergies) Date Reviewed: 03/15/2024 Reviewed by: Rere Valentino, ASSISTANT EDITOR.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 - Fully Assessed Reason for Visit: Patient Update [1234] Prescriptions as of 03/23/2024 - losartan (COZAAR) 50 mg tablet Take 1 tablet by mouth every afternoon. - predniSONE (DELTASONE) 20 mg tablet Take 1 tablet by mouth every afternoon. - allopurinol (ZYLOPRIM) 200 mg tablet Take 1 tablet (200 mg) by mouth once daily. - Cholecalciferol, Vitamin D3, (VITAMIN D) 25 mcg (1,000 unit) cap Take 2 capsules by mouth once daily. - colchicine 0.6 mg tablet May take twice daily for first day then once daily there after - lidocaine (LIDODERM) 5 % Apply 1 Patch as directed once daily. TO AFFECTED AREA. REMOVE AFTER 12 HOURS. - doxycycline monohydrate 100 mg tablet - meloxicam (MOBIC) 7.5 mg tablet Take 1 tablet by mouth every afternoon. - clobetasol (TEMOVATE) 0.05 % cream - Clindamycin Phosphate (CLEOCIN T) 1 % lotion - CERAVE - BP WASH 2.5 % - oxyCODONE-acetaminophe n (PERCOCET) 5-325 mg tablet Take one(1) tablet every six(6) hours as needed. - amLODIPine (NORVASC) 10 mg tablet Take one(1) tablet daily. - dupilumab (DUPIXENT SYRINGE) 100 mg/0.67 mL injection Inject 100 mg subcutaneously every 2 weeks. - diclofenac (VOLTAREN) 1 % topical gel Apply 2 g to affected area four times a day as needed. TO PAINFUL JOINTS , AVOID CONTACT WITH EYES, DO NOT EXCEED 32GM/DAY Problem List As Of Date: 03/15/2024 (None) Encounter Status:Closed by RERE VALENTINO on 03/23/24 [facility] ([id number]) 1965 M Date Time Provider Department 03/15/24 RERE VALENTINO During your visit today, we recorded the following information about you: Miriam Robles 03/15/2024 2:39 PM Signed Pablo is calling Rere Valentino APRN.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 today to let her know that his pharmacy told him a prior authorization would be needed for colchicine 0.6 mg tablet. Please advise. Patient has been identified by name and birthdate. Duration of symptoms: N/A Person calling: self Call patient at: on cell [phone] (home) [phone] (cell) Was an appointment scheduled: No Closing statement: Results or non-symptom based questions: Thank you for calling [facility], your call will be returned within the next business day. Senia Lockett MA 03/15/2024 3:43 PM Signed PA was completed through Covermymeds awaiting determination Xiang West (Maher: [id number]) PA Rx #: [id number] Senia Thurston MA 03/16/2024 11:53 AM Signed Xiang West (Maher: [id number]) PA Rx #: [id number] Need Help? Call us at Outcome Approved on March 15 Your PA request for [id number] was approved for 365 days. The PA#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 hours. Fasting plasma glucose results between 100 to 125 mg/dL indicate increased risk for diabetes (prediabetes). Fasting plasma glucose results greater than or equal to 126 mg/dL meet the criteria for diagnosis of diabetes. In the absence of unequivocal hyperglycemia, results should be confirmed by repeat testing. In a patient with classic symptoms of hyperglycemia or hyperglycemic crisis, random plasma glucose results greater than or equal to 200 mg/dL meet the criteria for diagnosis of diabetes. Reference: Standards of Medical Care in Diabetes 2016, [place] [employer]. Diabetes Care. 2016.39(Suppl 1). Performed By: #### 3 084-1, 10765-3 ####[facility] [id number] [place] [address] [place] Potassium [Moles/Vol] 4.1 mmol/L Normal 3.7-5.1 [facility] Comment on above: Order Comment: Trang crystal Type: BLOOD SPECIMENOrdering Facility: [facility] Address: [address] [place] [address] Performed By: #### 3 084-1, 89555-9 ####[facility] LABCLIA [id number] [address] [address] [place] Protein [Mass/Vol] 7.2 g/dL Normal 6.3-8.0 [facility] Comment on above: Order Comment: Speci men Type: BLOOD SPECIMENOrdering Facility: [facility] Address: [address] [place] [address] Performed By: #### 3 084-1, ####[facility] LABIA [id number] [place] [address] [place] Sodium [Moles/Vol] 142 mmol/L Normal 136-144 [facility] Comment on above: Order Comment: Speci men Type: BLOOD SPECIMENOrdering Facility: [facility] Address: [address] [place] [address] Performed By: #### 3 084-, 08130-0 ####[facility] LABIA [id number] [place] [address] [place] Urea nitrogen [Mass/Vol] 17 mg/dL Normal 9-24 [facility] Comment on above: Order Comment: Speci men Type: BLOOD SPECIMENOrdering Facility: [facility] Address: [address] [place] [address] Performed By: #### 3 084-1, 16122-2 ####[facility] LABIA [id number] [place] [id number] [place] Urate SerPl-mCncon 4 Urate [Mass/Vol] 2.7 mg/dL Low 4.0-8.1 [facility] Comment on above: Order Comment: Speci men Type: BLOOD SPECIMENOrdering Facility: [facility] Address: [address] [place] [address] Performed By: #### 3 084-1, 47790-7 ####[facility] ROSELIA [id number] [place] [id number] [facility] Sarmad 02-26-2024 GORAN Telephone (AGUSTÍN) BRETTXIANG ([id number]) 1965 Alfredo Date Time Provider Department 02/26/24 RERE VALENTINO During your visit today, we recorded the following information about you: Rere Valentino APRN.ANTHONY 02/26/2024 12:[address] knee normal Baylee Soler RN 02/26/2024 12:28 PM Signed -Called and left message on pt's VM for pt to call back to the office to receive the message below. Miriam Robles 02/28/2024 8:10 AM Signed Patient returned call and was given message below. Patient had no further questions at this time. Allergies As of Date: 02/26/2024 (No Known Allergies) Date Reviewed: 02/02/2024 Reviewed by: Rere Valentino, NAVEEN.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 - Fully Assessed Reason for Visit: Results [95] Prescriptions as of 02/28/2024 - allopurinol (ZYLOPRIM) 200 mg tablet Take 1 tablet (200 mg) by mouth once daily. - predniSONE (DELTASONE) 5 mg tablet Take 1 tablet by mouth once daily. Then stop. No other nsaids . With food. - ergocalciferol 50,000 unit capsule (VITAMIN D2, DRISDOL) Take 1 capsule by mouth two times a week. (FOR EXAMPLE ONE CAPSULE ON WEDNESDAY AND ONE ON WEDNESDAY) FOR A TOTAL OF 8 WEEKS, WITH A MEAL - oxyCODONE-acetaminophe n (PERCOCET) 5-325 mg tablet Take one(1) tablet every six(6) hours as needed. - amLODIPine (NORVASC) 10 mg tablet Take one(1) tablet daily. - dupilumab (DUPIXENT SYRINGE) 100 mg/0.67 mL injection Inject 100 mg subcutaneously every 2 weeks. - lidocaine (LIDODERM) 5 % Apply 1 Patch as directed once daily. TO AFFECTED AREA. REMOVE AFTER 12 HOURS. - diclofenac (VOLTAREN) 1 % topical gel Apply 2 g to affected area four times a day as needed. TO PAINFUL JOINTS , AVOID CONTACT WITH EYES, DO NOT EXCEED 32GM/DAY Problem List As Of Date: 02/26/2024 (None) Encounter Status:Closed by MIRIAM ROBLES on 02/28/24 [facility] GORAN Telephone (AGUSTÍN) XIANG WEST ([id number]) 1965 Alfredo Date Time Provider Department 02/25/24 RERE VALENTINO During your visit today, we recorded the following information about you: Liat Serrano, MARIANA 02/25/2024 8:49 AM Signed Pt calls Pt calling asking if can decrease or stop below med? predniSONE (DELTASONE) 5 mg tablet 30 tablet 0 02/02/2024 -- Sig: Take 1 tablet by mouth once daily. Then stop. No other nsaids . With food. Pt saw derm provider and pt is breaking out on face / scalp and derm provider feels is d/t Above med Rere Valentino APRN.[facility] 02/25/2024 10:56 AM Signed Yes he can stop due for recheck labs 03/04 Tc Ruiz MA 02/25/2024 11:14 AM Signed Spoke to pt aware of recommendations. Allergies As of Date: 02/25/2024 (No Known Allergies) Date Reviewed: 02/02/2024 Reviewed by: Rere Valentino APRN.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 - Fully Assessed Reason for Visit: Medication Problem [65] Prescriptions as of 02/25/2024 - allopurinol (ZYLOPRIM) 200 mg tablet Take 1 tablet (200 mg) by mouth once daily. - predniSONE (DELTASONE) 5 mg tablet Take 1 tablet by mouth once daily. Then stop. No other nsaids . With food. - ergocalciferol 50,000 unit capsule (VITAMIN D2, DRISDOL) Take 1 capsule by mouth two times a week. (FOR EXAMPLE ONE CAPSULE ON WEDNESDAY AND ONE ON WEDNESDAY) FOR A TOTAL OF 8 WEEKS, WITH A MEAL - oxyCODONE-acetaminophe n (PERCOCET) 5-325 mg tablet Take one(1) tablet every six(6) hours as needed. - amLODIPine (NORVASC) 10 mg tablet Take one(1) tablet daily. - dupilumab (DUPIXENT SYRINGE) 100 mg/0.67 mL injection Inject 100 mg subcutaneously every 2 weeks. - lidocaine (LIDODERM) 5 % Apply 1 Patch as directed once daily. TO AFFECTED AREA. REMOVE AFTER 12 HOURS. - diclofenac (VOLTAREN) 1 % topical gel Apply 2 g to affected area four times a day as needed. TO PAINFUL JOINTS , AVOID CONTACT WITH EYES, DO NOT EXCEED 32GM/DAY Problem List As Of Date: 02/25/2024 (None) Encounter Status:Closed by TC RUIZ on 02/25/24 [facility] CT KNEE WO IVCON RTon 2023 CT KNEE WO IVCON RT * * *Final Report* * * DATE OF EXAM: Feb 09 2024 12:39PM [facility]VC 0084 - CT KNEE WO IVCON RT / PROCEDURE REASON: multiple diagnoses * * * * Physician Interpretation * * * * CT KNEE WO IVCON RT 02/09/2024 12:39 PM HISTORY: Chronic pain of both knees Chronic pain of both knees Chronic pain of both knees Hyperuricemia TECHNIQUE: Non-contrast axial CT imaging of the right knee is performed utilizing dual energy CT for detection of gout. Coronal and sagittal reconstructions were performed. Color maps were generated and reviewed. Contrast: None. CT Radiation dose: Integrated Dose-length product (DLP) for this visit = 207 mGy*cm. CT Dose Reduction Employed: Automated exposure control (AEC) COMPARISON: Knee radiographs dated 12/27/2023. RESULT: No fracture or malalignment. Joint spaces are maintained. No significant joint effusion or Cormier's cyst. No muscle fatty atrophy. No osseous erosion or suspicious soft tissue calcifications. Color maps demonstrate no evidence of urate deposition. IMPRESSION: No findings to suggest gout. Weekend Anchor: BETTY Transcribe Date/Time: Feb 09 2024 12:46P Dictated by : JENN BOGGS MD This examination was interpreted and the report reviewed and electronically signed by: JENN BOGGS MD on Feb 09 2024 12:50PM EST [id number] Normal [facility] CT Knee - right WO contrasto n 02-09-2024 [facility] CNPNon 02-04-2024 ANTHONYN Telephone (AGUSTÍN) XIANG WEST ([id number]) 1965 M Date Time Provider Department 02/04/24 RERE VALENTINO During your visit today, we recorded the following information about you: Senia Thurston MA 02/04/2024 10:23 AM Signed Called pt - left to return call Pt is on Rere's schedule for today @ 230pm , however we had just seen him in the office on 02/01 pt is to follow up in [facility] for repeat labs - Unsure reason for visit -- please cancel if this is in error CT scheduled for 02/08 Senia Thurston MA 02/04/2024 11:49 AM Signed Spoke with patient states appt was scheduled due to insufficient chart notes to support the need for Ct scan Please advise chart note still open -- please review Appt today will be canceled - pt aware Rere Valentino APRN.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 02/08/2024 3:[address] right knee Auth # [id number] Dates approved 01/27/2024 -03/27/2024 Please schedule within these date Marilynn Adkins 02/08/2024 4:06 PM Signed Reviewed patients chart. Patient is scheduled CT knee for 02/09/24 at 12:45pm Allergies As of Date: 02/04/2024 (No Known Allergies) Date Reviewed: 02/02/2024 Reviewed by: Rere Valentino, NAVEEN.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 - Fully Assessed Reason for Visit: Appointment [186] Cmt: ? error with scheduling -- pt seen on 02/01 - return 1 mth for repeat labs -- CT is scheduled for 02/08 Prescriptions as of 02/08/2024 - allopurinol (ZYLOPRIM) 200 mg tablet Take 1 tablet (200 mg) by mouth once daily. - predniSONE (DELTASONE) 5 mg tablet Take 1 tablet by mouth once daily. Then stop. No other nsaids . With food. - ergocalciferol 50,000 unit capsule (VITAMIN D2, DRISDOL) Take 1 capsule by mouth two times a week. (FOR EXAMPLE ONE CAPSULE ON WEDNESDAY AND ONE ON WEDNESDAY) FOR A TOTAL OF 8 WEEKS, WITH A MEAL - oxyCODONE-acetaminophe n (PERCOCET) 5-325 mg tablet Take one(1) tablet every six(6) hours as needed. - amLODIPine (NORVASC) 10 mg tablet Take one(1) tablet daily. - dupilumab (DUPIXENT SYRINGE) 100 mg/0.67 mL injection Inject 100 mg subcutaneously every 2 weeks. - lidocaine (LIDODERM) 5 % Apply 1 Patch as directed once daily. TO AFFECTED AREA. REMOVE AFTER 12 HOURS. - diclofenac (VOLTAREN) 1 % topical gel Apply 2 g to affected area four times a day as needed. TO PAINFUL JOINTS , AVOID CONTACT WITH EYES, DO NOT EXCEED 32GM/DAY Problem List As Of Date: 02/04/2024 (None) Encounter Status:Closed by RERE VALENTINO on 02/08/24 Normal [facility] C-REACTIVE PROTEIN (CRP)on 0 02-02-2024 CRP [Mass/Vol] 1.0 mg/dL High <0.9 mg/dL [facility] CNOVon 02-02-2024 CNOV Office Visit (AGUSTÍN ) XIANG WEST ([id number]) 1965 M Date Time Provider Department 02/02/24 10:30 AM RERE VALENTINO During your visit today, we recorded the following information about you: Temperature Pulse Blood pressure Weight 97.4 degrees 79/minute 146/89 109.5 kg Rere Valentino APRN.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 02/02/2024 11:19 AM Addendum Continue prednisone mg for 1 month then stop No other nsaids With food If labs are normal We will increase allopurinol 200mg daily Recheck labs today and in 1 month Rere Valentino APRN.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 02/28/2024 5:08 PM Signed Rheumatology FOLLOW UP VISIT Referring Provider: Date of Service: 02/02/2024 Gender: male Ethnicity: Black Age: [age] year old Chief Complaint: F/U 1 month (Joint pain -- US yesterday -- Rt foot pain x 3 days ago --) Last Rheumatology visit: 02/02/2024 (with Rere Valentino) Xiang West is a 58 year old Black male who presents on 02/02/2024 for in person visit for follow-up of F/U 1 month (Joint pain -- US yesterday -- Rt foot pain x 3 days ago --). He is currently taking diclofenac sodium, prednisone. INTERVAL HISTORY Lidocaine patches help Had pain in right ankle lidocaine Stopped mobic On prd 5mg daily taper Allopurinol 100mg daily No pain 'no swelling No swelling toes FROM PAIN EVALUATION No data found in the last 1 encounters. Impression Diagnoses: (E79.0) Hyperuricemia (primary encounter diagnosis) (M25.40) Joint swelling (E55.9) Vitamin D deficiency (M25.50) Pain in joint, multiple sites Reports history gout on allopurinol ? Inflammatory arthritis Family hisotry gout No family history inflammatory arthritis. In past -Rf-ccp He has went to the ER about once a month starting in 2021 for joint pain. Pain in hands pips,mcps, knees, and ankles. Prior joint effusions on xrays Intermittent swelling in ankles, knees and hands pips and mcps. Today only the right knee has trace synovitis. Recently on prednisone for flare. Will order labs, Us hands / ankles, xrays knees, ankles, hands History vit d def - not taking will recheck Recent bx of skin on legs black discoloration- patient will continue to follow for results -RF-CCP-VIRY Hyperuricemia 8.3 Vit d def - started on vit d rx Hands-Mild osteoarthritis Ankle- Bilateral talocalcaneal tarsal coalition.- referred to podiatry Knees-Mild bilateral knee osteoarthritis US- Nonspecific active synovitis in the left second MTP joint. No active synovitis or tenosynovitis in the hands or wrists. Will check CT low dose to check for gout Patient scheduled Started on pred Increased allopurinol 200mg daily Plan May use heat/ otc , lidocaine patches, volatren gel for pain Pred taper Derm for any skin changes allopurinol from 200mg daily Recheck labs in [address] Return labs today and in 1 month, for 2 months . I spent a total of 35 minutes on the date of the service which included preparing to see the patient, miot-ze-vita patient care, completing clinical documentation, obtaining and/or reviewing separately obtained history, performing a medically appropriate examination, counseling and educating the patient/family/caregiv er, and ordering medications, tests, or proceduresPortions of this note have been copied from my previous note and have been updated to reflect today's visit note February 02, 2024 all reflect current medical decision making from date of this visit. Rere Valentino APRN.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 cc: PCP: Rere Aguiar MD ([facility]) [address] [place] [address] Subjective HISTORY OF PRESENT ILLNESS Only see rheumatology 1 visit in the past Multiple ER visits for joint pain History gout? Allopurinol 100mg daily Went to ER twice in last few weeks Several years joint Intermittent can go months without anything or multiple times month Pains - Knees, ankles, pips, mcps, toes Swelling - ankles , toes, knees, pips, mcps Am stiffness - no If joints stiff and swollen only gets worse not better Feels locked in position Unless having flare no am stiffness Last time could not get out of bed for 4 days Could not bend either knees Painful stiff swelling Used to be able to work it out but not does not stop pain gets worse Pain stiffness swelling relieved with prednisone No redness Does have tenderness when happens No known history RA or lupus Family history gout Not increased stress No infection proceeding INTERVAL HISTORY Lidocaine patches help Had pain in right ankle lidocaine Stopped mobic On prd 5mg daily taper Allopurinol 100mg daily No pain 'no swelling No swelling toes FROM Disease History Gout History Frequency of attacks at initial presentation: patient is unsure sometimes called gout attacks and other (more content not included)... Normal [facility] ANTHONYNon 02-02-2024 ANTHONYN Telephone (AGUSTÍN) XIANG WEST ([id number]) 1965 M Date Time Provider Department 02/02/24 RERE VALENTINO During your visit today, we recorded the following information about you: Rere Valentino, NAVEEN.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 02/02/2024 11:26 PM Signed Please call patient Some inflammation on labs 'normal kidney function Please increase allopurinol 200mg once daily Same time every day Recheck labs in 1 month Component Latest Ref Rng AND Units 02/02/2024 Creatinine 0.73 - 1.22 mg/dL 1.03 eGFR >=60 mL/min/1.73mA? 83 CRP <0.9 mg/dL 1.0 (H) WSR 0 - 15 mm/hr 34 (H) Senia Thurston MA 02/03/2024 8:29 AM Signed Left message for patient to call office regarding below. Sapphire Ocampo, MARIANA 02/03/2024 12:09 PM Signed Patient returning call, given message noted below. Verbalized understanding, no further questions at this time. Patient is asking for a new Rx for the 200 mg tabs be sent to pharmacy on file. Rere Valentino APRN.CNP 02/08/2024 3:03 PM Signed Rx sent Allergies As of Date: 02/02/2024 (No Known Allergies) Date Reviewed: 02/02/2024 Reviewed by: Rere Valentino APRN.ANTHONY - Fully Assessed Reason for Visit: Results [95] Primary Visit Diagnosis:Hyperuricemi a [E79.0] Order(s):allopurinol (ZYLOPRIM) 200 mg tabletTake 1 tablet (200 mg) by mouth once daily.Disp: 30 tabletRfl: 2 Prescriptions as of 02/08/2024 - allopurinol (ZYLOPRIM) 200 mg tablet Take 1 tablet (200 mg) by mouth once daily. - predniSONE (DELTASONE) 5 mg tablet Take 1 tablet by mouth once daily. Then stop. No other nsaids . With food. - ergocalciferol 50,000 unit capsule (VITAMIN D2, DRISDOL) Take 1 capsule by mouth two times a week. (FOR EXAMPLE ONE CAPSULE ON WEDNESDAY AND ONE ON WEDNESDAY) FOR A TOTAL OF 8 WEEKS, WITH A MEAL - oxyCODONE-acetaminophe n (PERCOCET) 5-325 mg tablet Take one(1) tablet every six(6) hours as needed. - amLODIPine (NORVASC) 10 mg tablet Take one(1) tablet daily. - dupilumab (DUPIXENT SYRINGE) 100 mg/0.67 mL injection Inject 100 mg subcutaneously every 2 weeks. - lidocaine (LIDODERM) 5 % Apply 1 Patch as directed once daily. TO AFFECTED AREA. REMOVE AFTER 12 HOURS. - diclofenac (VOLTAREN) 1 % topical gel Apply 2 g to affected area four times a day as needed. TO PAINFUL JOINTS , AVOID CONTACT WITH EYES, DO NOT EXCEED 32GM/DAY Problem List As Of Date: 02/02/2024 (None) Prescriptions ordered this encounter Disp Refills Start End ALLOPURINOL 200 MG TABLET 30 t* 2 02/08/2024 Route: ORAL Sig: Take 1 tablet (200 mg) by mouth once daily. Medications Discontinued During This Encounter Prescriptions - allopurinol (ZYLOPRIM) 100 mg tablet (Discontinued) Take one(1) tablet daily. Encounter Status:Closed by RERE VALENTINO on 02/08/24 Normal [facility] CREATININE BLDon 02-02-2024 Creatinine [Mass/Vol] 1.03 mg/dL 0.73 - 1.22 mg/dL [facility] Estimated Glomerular Filtration Rate 83 mL/min/1.73m >=60 mL/min/1.73m [facility] Creatinine [Mass/Vol] 1.03 mg/dL Normal 0.73-1.22 [facility] Comment on above: Order Comment: Trang crystal Type: BLOOD SPECIMENOrdering Facility: [facility] Address: [address] [place] [address] Performed By: #### 1 988-5, CRET1 ####[facility] LABCLIA [id number] [place] [address] [place] [facility] Creatinine and Glomerular filtration rate.predicted panel (S/P/Bld) 83 mL/min/1.73m??? Normal >=60 [facility] Comment on above: Order Comment: Trang crystal Type: BLOOD SPECIMENOrdering Facility: [facility] Address: [address] [place] [address] Result Comment: Laxmi mated Glomerular Filtration Rate (eGFR) is calculated using the 2020 CKD-EPI creatinine equation. This equation utilizes serum creatinine, sex, and age as parameters. The creatinine assay has traceable calibration to isotope dilution-mass spectrometry. Refer to KDIGO guidelines for clinical interpretation. In patients with unstable renal function, e.g. those with acute kidney injury, the eGFR may not accurately reflect actual GFR. Performed By: #### 1 988-5, CRET1 ####[facility] LABIA [id number] [place] [address] [place] CRP SerPl-mCncon 02-02-2024 CRP [Mass/Vol] 1.0 mg/dL High <0.9 [facility] Comment on above: Order Comment: Trang crystal Type: BLOOD SPECIMENOrdering Facility: [facility] Address: [address] [place] [address] Performed By: #### 1 988-5, CRET1 ####[facility] LABIA [id number] [place] [address] [place] ESR Westergren method (Bld) [Velocity]on 02-02-2024 ESR (Bld) [Velocity] 34 mm/h High 0 - 15 mm/hr [facility] ESR (Bld) [Velocity] 34 mm/h [facility]-[address] [facility] Comment on above: Order Comment: Speci men Type: BLOOD SPECIMENOrdering Facility: [facility] Address: [address] [place], [place] [address] [address] Performed By: #### 4 537-7 ####[facility] LABIA [id number] [place] [address] [place] No Panel Informationon 01-30 [facility] US FOOT/ANKLE SYNOVIAL SCREE N LTon 01-31-2024 US FOOT/ANKLE SYNOVIAL SCREEN LT * * *Final Report* * * DATE OF EXAM: Jan 31 2024 1:45PM AFU 1200 - US FOOT/ANKLE SYNOVIAL SCREEN LT / PROCEDURE REASON: multiple diagnoses * * * * Physician Interpretation * * * * MSK_US SYNOVITIS SCREENING ULTRASOUND OF THE FEET AND ANKLES: CLINICAL INFORMATION: Pain in joint, multiple sites Joint swelling Chronic pain of both ankles Chronic pain of both ankles TECHNIQUE: Umaña-scale, real-time ultrasound of both the right and left foot and ankle synovium and tenosynovium was performed with power Doppler examination. Images were saved to the permanent image archive. v1-2019 COMPARISON: None. FINDINGS: RIGHT SIDE: RIGHT MTP AND PIP JOINT SYNOVIUM: 2ND MTP: Hypertrophy: Minimal. Power Doppler: None. 2ND PIP: Hypertrophy: None. Power Doppler: None. 3RD MTP: Hypertrophy: Minimal. Power Doppler: None. 3RD PIP: Hypertrophy: None. Power Doppler: None. 4TH MTP: Hypertrophy: Minimal. Power Doppler: None. 4TH PIP: Hypertrophy: None. Power Doppler: None. 5TH MTP: Hypertrophy: None. Power Doppler: None. 5TH PIP: Hypertrophy: None. Power Doppler: None. RIGHT EXTENSOR AND FLEXOR TENOSYNOVIUM: 2ND Digit Flexor: Hypertrophy: None. Power Doppler: None. 2ND Digit Extensor: Hypertrophy: None. Power Doppler: None. 3RD Digit Flexor: Hypertrophy: None. Power Doppler: None. 3RD Digit Extensor: Hypertrophy: None. Power Doppler: None. 4TH Digit Flexor: Hypertrophy: None. Power Doppler: None. 4TH Digit Extensor: Hypertrophy: None. Power Doppler: None. 5TH Digit Flexor: Hypertrophy: None. Power Doppler: None. 5TH Digit Extensor: Hypertrophy: None. Power Doppler: None. TARSUS Synovitis: Hypertrophy: None. Power Doppler: None. OTHER: None. LEFT SIDE: LEFT MTP AND PIP JOINT SYNOVIUM: 2ND MTP: Hypertrophy: Minimal. Power Doppler: Moderate. 2ND PIP: Hypertrophy: None. Power Doppler: None. 3RD MTP: Hypertrophy: Minimal. Power Doppler: None. 3RD PIP: Hypertrophy: None. Power Doppler: None. 4TH MTP: Hypertrophy: Minimal. Power Doppler: None. 4TH PIP: Hypertrophy: None. Power Doppler: None. 5TH MTP: Hypertrophy: None. Power Doppler: None. 5TH PIP: Hypertrophy: None. Power Doppler: None. LEFT EXTENSOR AND FLEXOR TENOSYNOVIUM: 2ND Digit Flexor: Hypertrophy: None. Power Doppler: None. 2ND Digit Extensor: Hypertrophy: None. Power Doppler: None. 3RD Digit Flexor: Hypertrophy: None. Power Doppler: None. 3RD Digit Extensor: Hypertrophy: None. Power Doppler: None. 4TH Digit Flexor: Hypertrophy: None. Power Doppler: None. 4TH Digit Extensor: Hypertrophy: None. Power Doppler: None. 5TH Digit Flexor: Hypertrophy: None. Power Doppler: None. 5TH Digit Extensor: Hypertrophy: None. Power Doppler: None. TARSUS Synovitis: Hypertrophy: None. Power Doppler: None. OTHER: None. IMPRESSION: Nonspecific active synovitis in the left second MTP joint. No other active synovitis tenosynovitis in the feet or ankles. Weekend Anchor: PSCB Transcribe Date/Time: Jan 31 2024 2:06P Dictated by : GRISEL BRANTLEY MD This examination was interpreted and the report reviewed and electronically signed by: GRISEL BRANTLEY MD on Jan 31 2024 4:16PM EST [id number] Normal [facility] FOOT/ANKLE SYNOVIAL SCREE N RTon 01-31-2024 US FOOT/ANKLE SYNOVIAL SCREEN RT * * *Final Report* * * DATE OF EXAM: Jan 31 2024 1:29PM AFU 1178 - US FOOT/ANKLE SYNOVIAL SCREEN RT / PROCEDURE REASON: multiple diagnoses * * * * Physician Interpretation * * * * MSK_US SYNOVITIS SCREENING ULTRASOUND OF THE FEET AND ANKLES: CLINICAL INFORMATION: Pain in joint, multiple sites Joint swelling Chronic pain of both ankles Chronic pain of both ankles TECHNIQUE: Umaña-scale, real-time ultrasound of both the right and left foot and ankle synovium and tenosynovium was performed with power Doppler examination. Images were saved to the permanent image archive. v1-2020 COMPARISON: None. FINDINGS: RIGHT SIDE: RIGHT MTP AND PIP JOINT SYNOVIUM: 2ND MTP: Hypertrophy: Minimal. Power Doppler: None. 2ND PIP: Hypertrophy: None. Power Doppler: None. 3RD MTP: Hypertrophy: Minimal. Power Doppler: None. 3RD PIP: Hypertrophy: None. Power Doppler: None. 4TH MTP: Hypertrophy: Minimal. Power Doppler: None. 4TH PIP: Hypertrophy: None. Power Doppler: None. 5TH MTP: Hypertrophy: None. Power Doppler: None. 5TH PIP: Hypertrophy: None. Power Doppler: None. RIGHT EXTENSOR AND FLEXOR TENOSYNOVIUM: 2ND Digit Flexor: Hypertrophy: None. Power Doppler: None. 2ND Digit Extensor: Hypertrophy: None. Power Doppler: None. 3RD Digit Flexor: Hypertrophy: None. Power Doppler: None. 3RD Digit Extensor: Hypertrophy: None. Power Doppler: None. 4TH Digit Flexor: Hypertrophy: None. Power Doppler: None. 4TH Digit Extensor: Hypertrophy: None. Power Doppler: None. 5TH Digit Flexor: Hypertrophy: None. Power Doppler: None. 5TH Digit Extensor: Hypertrophy: None. Power Doppler: None. TARSUS Synovitis: Hypertrophy: None. Power Doppler: None. OTHER: None. LEFT SIDE: LEFT MTP AND PIP JOINT SYNOVIUM: 2ND MTP: Hypertrophy: Minimal. Power Doppler: Moderate. 2ND PIP: Hypertrophy: None. Power Doppler: None. 3RD MTP: Hypertrophy: Minimal. Power Doppler: None. 3RD PIP: Hypertrophy: None. Power Doppler: None. 4TH MTP: Hypertrophy: Minimal. Power Doppler: None. 4TH PIP: Hypertrophy: None. Power Doppler: None. 5TH MTP: Hypertrophy: None. Power Doppler: None. 5TH PIP: Hypertrophy: None. Power Doppler: None. LEFT EXTENSOR AND FLEXOR TENOSYNOVIUM: 2ND Digit Flexor: Hypertrophy: None. Power Doppler: None. 2ND Digit Extensor: Hypertrophy: None. Power Doppler: None. 3RD Digit Flexor: Hypertrophy: None. Power Doppler: None. 3RD Digit Extensor: Hypertrophy: None. Power Doppler: None. 4TH Digit Flexor: Hypertrophy: None. Power Doppler: None. 4TH Digit Extensor: Hypertrophy: None. Power Doppler: None. 5TH Digit Flexor: Hypertrophy: None. Power Doppler: None. 5TH Digit Extensor: Hypertrophy: None. Power Doppler: None. TARSUS Synovitis: Hypertrophy: None. Power Doppler: None. OTHER: None. IMPRESSION: Nonspecific active synovitis in the left second MTP joint. No other active synovitis tenosynovitis in the feet or ankles. Weekend Anchor: [employer] Transcribe Date/Time: Jan 31 2024 2:06P Dictated by : GRISEL BRANTLEY MD This examination was interpreted and the report reviewed and electronically signed by: GRISEL BRANTLEY MD on Jan 31 2024 4:16PM EST [id number] Normal [facility] US HAND/WRIST SYNOVIAL SCREE N LTon 01-31-2024 US HAND/WRIST SYNOVIAL SCREEN LT * * *Final Report* * * DATE OF EXAM: Jan 31 2024 1:15PM AFU 1198 - US HAND/WRIST SYNOVIAL SCREEN LT / PROCEDURE REASON: multiple diagnoses * * * * Physician Interpretation * * * * MSK_US SYNOVITIS SCREENING ULTRASOUND OF THE HANDS AND WRISTS: CLINICAL INFORMATION: Pain in joint, multiple sites Joint swelling Bilateral hand pain Bilateral hand pain TECHNIQUE: Umaña-scale, real-time ultrasound of both the right and left hand and wrist synovium and tenosynovium was performed with power Doppler examination. Images were saved to the permanent image archive. COMPARISON: X-ray: 12/27/2023 FINDINGS: RIGHT SIDE: RIGHT MCP AND PIP JOINT SYNOVIUM: 2ND MCP: Hypertrophy: Minimal. Power Doppler: None. 2ND PIP: Hypertrophy: None. Power Doppler: None. 3RD MCP: Hypertrophy: Minimal. Power Doppler: None. 3RD PIP: Hypertrophy: None. Power Doppler: None. 4TH MCP: Hypertrophy: None. Power Doppler: None. 4TH PIP: Hypertrophy: None. Power Doppler: None. 5TH MCP: Hypertrophy: None. Power Doppler: None. 5TH PIP: Hypertrophy: None. Power Doppler: None. RIGHT EXTENSOR AND FLEXOR TENOSYNOVIUM: 2ND Digit Flexor: Hypertrophy: None. Power Doppler: None. 2ND Digit Extensor: Hypertrophy: None. Power Doppler: None. 3RD Digit Flexor: Hypertrophy: None. Power Doppler: None. 3RD Digit Extensor: Hypertrophy: None. Power Doppler: None. 4TH Digit Flexor: Hypertrophy: None. Power Doppler: None. 4TH Digit Extensor: Hypertrophy: None. Power Doppler: None. 5TH Digit Flexor: Hypertrophy: None. Power Doppler: None. 5TH Digit Extensor: Hypertrophy: None. Power Doppler: None. CARPUS Synovitis: Hypertrophy: Minimal. Power Doppler: None. OTHER: None. LEFT SIDE: LEFT MCP AND PIP JOINT SYNOVIUM: 2ND MCP: Hypertrophy: Minimal. Power Doppler: None. 2ND PIP: Hypertrophy: None. Power Doppler: None. 3RD MCP: Hypertrophy: Minimal. Power Doppler: None. 3RD PIP: Hypertrophy: None. Power Doppler: None. 4TH MCP: Hypertrophy: None. Power Doppler: None. 4TH PIP: Hypertrophy: None. Power Doppler: None. 5TH MCP: Hypertrophy: None. Power Doppler: None. 5TH PIP: Hypertrophy: None. Power Doppler: None. LEFT EXTENSOR AND FLEXOR TENOSYNOVIUM: 2ND Digit Flexor: Hypertrophy: None. Power Doppler: None. 2ND Digit Extensor: Hypertrophy: None. Power Doppler: None. 3RD Digit Flexor: Hypertrophy: None. Power Doppler: None. 3RD Digit Extensor: Hypertrophy: None. Power Doppler: None. 4TH Digit Flexor: Hypertrophy: None. Power Doppler: None. 4TH Digit Extensor: Hypertrophy: None. Power Doppler: None. 5TH Digit Flexor: Hypertrophy: None. Power Doppler: None. 5TH Digit Extensor: Hypertrophy: None. Power Doppler: None. CARPUS Synovitis: Hypertrophy: Minimal. Power Doppler: None. OTHER: None. IMPRESSION: No active synovitis or tenosynovitis in the hands or wrists. Weekend Anchor: PSCB Transcribe Date/Time: Jan 31 2024 1:58P Dictated by : GRISEL BRANTLEY MD This examination was interpreted and the report reviewed and electronically signed by: GRISEL BRANTLEY MD on Jan 31 2024 4:13PM EST [id number] Normal [facility] HAND/WRIST SYNOVIAL SCREE N RTon 01-31-2024 US HAND/WRIST SYNOVIAL SCREEN RT * * *Final Report* * * DATE OF EXAM: Jan 31 2024 1:00PM AFU 1197 - US HAND/WRIST SYNOVIAL SCREEN RT / PROCEDURE REASON: multiple diagnoses * * * * Physician Interpretation * * * * MSK_US SYNOVITIS SCREENING ULTRASOUND OF THE HANDS AND WRISTS: CLINICAL INFORMATION: Pain in joint, multiple sites Joint swelling Bilateral hand pain Bilateral hand pain TECHNIQUE: Umaña-scale, real-time ultrasound of both the right and left hand and wrist synovium and tenosynovium was performed with power Doppler examination. Images were saved to the permanent image archive. v1-2019 COMPARISON: X-ray: 12/27/2023 FINDINGS: RIGHT SIDE: RIGHT MCP AND PIP JOINT SYNOVIUM: 2ND MCP: Hypertrophy: Minimal. Power Doppler: None. 2ND PIP: Hypertrophy: None. Power Doppler: None. 3RD MCP: Hypertrophy: Minimal. Power Doppler: None. 3RD PIP: Hypertrophy: None. Power Doppler: None. 4TH MCP: Hypertrophy: None. Power Doppler: None. 4TH PIP: Hypertrophy: None. Power Doppler: None. 5TH MCP: Hypertrophy: None. Power Doppler: None. 5TH PIP: Hypertrophy: None. Power Doppler: None. RIGHT EXTENSOR AND FLEXOR TENOSYNOVIUM: 2ND Digit Flexor: Hypertrophy: None. Power Doppler: None. 2ND Digit Extensor: Hypertrophy: None. Power Doppler: None. 3RD Digit Flexor: Hypertrophy: None. Power Doppler: None. 3RD Digit Extensor: Hypertrophy: None. Power Doppler: None. 4TH Digit Flexor: Hypertrophy: None. Power Doppler: None. 4TH Digit Extensor: Hypertrophy: None. Power Doppler: None. 5TH Digit Flexor: Hypertrophy: None. Power Doppler: None. 5TH Digit Extensor: Hypertrophy: None. Power Doppler: None. CARPUS Synovitis: Hypertrophy: Minimal. Power Doppler: None. OTHER: None. LEFT SIDE: LEFT MCP AND PIP JOINT SYNOVIUM: 2ND MCP: Hypertrophy: Minimal. Power Doppler: None. 2ND PIP: Hypertrophy: None. Power Doppler: None. 3RD MCP: Hypertrophy: Minimal. Power Doppler: None. 3RD PIP: Hypertrophy: None. Power Doppler: None. 4TH MCP: Hypertrophy: None. Power Doppler: None. 4TH PIP: Hypertrophy: None. Power Doppler: None. 5TH MCP: Hypertrophy: None. Power Doppler: None. 5TH PIP: Hypertrophy: None. Power Doppler: None. LEFT EXTENSOR AND FLEXOR TENOSYNOVIUM: 2ND Digit Flexor: Hypertrophy: None. Power Doppler: None. 2ND Digit Extensor: Hypertrophy: None. Power Doppler: None. 3RD Digit Flexor: Hypertrophy: None. Power Doppler: None. 3RD Digit Extensor: Hypertrophy: None. Power Doppler: None. 4TH Digit Flexor: Hypertrophy: None. Power Doppler: None. 4TH Digit Extensor: Hypertrophy: None. Power Doppler: None. 5TH Digit Flexor: Hypertrophy: None. Power Doppler: None. 5TH Digit Extensor: Hypertrophy: None. Power Doppler: None. CARPUS Synovitis: Hypertrophy: Minimal. Power Doppler: None. OTHER: None. IMPRESSION: No active synovitis or tenosynovitis in the hands or wrists. Weekend Anchor: PSCB Transcribe Date/Time: Jan 31 2024 1:58P Dictated by : GRISEL BRANTLEY MD This examination was interpreted and the report reviewed and electronically signed by: GRISEL BRANTLEY MD on Jan 31 2024 4:13PM EST [id number] Normal [facility] 01-20-2024 GORAN Telephone (AGUSTÍN) XIANG WEST ([id number]) 1965 M Date Time Provider Department 01/20/24 RERE VALENTINO During your visit today, we recorded the following information about you: Rere Valentino APRN.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 01/20/2024 9:13 PM Signed I tried to call patient Phone would not accept my call Please try again Please verify no current infection Pred taper sent ---- I saw patient in office today confirmed swelling pip right hand Image will attached No redness tender Estelita Caldwell, RN 01/21/2024 9:39 AM Signed Pt identified by name and Pt notified of below message and verbalizes understanding. Patient recalls in OV Discussion that he was NOT supposed to take Prednisone until AFTER Labs/CT Labs 01/30 CT 02/08 Please advise Rere Valentino APRN.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 01/21/2024 10:29 AM Signed No march start prednisone now Labs in March CT as schedule d Senia Thurston MA 01/21/2024 1:23 PM Signed Notified patient of below, verbal understanding. Allergies As of Date: 01/20/2024 (No Known Allergies) Date Reviewed: 12/27/2023 Reviewed by: Rere Valentino APRN.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 - Fully Assessed Order(s):predniSONE (DELTASONE) 5 mg tabletTake 2 tablets by mouth once daily for 14 days, THEN 1 tablet once daily for 14 days. With food . No other nsaids.Disp: 42 tabletRfl: 0 Prescriptions as of 01/21/2024 - predniSONE (DELTASONE) 5 mg tablet Take 2 tablets by mouth once daily for 14 days, THEN 1 tablet once daily for 14 days. With food . No other nsaids. - ergocalciferol 50,000 unit capsule (VITAMIN D2, DRISDOL) Take 1 capsule by mouth two times a week. (FOR EXAMPLE ONE CAPSULE ON WEDNESDAY AND ONE ON WEDNESDAY) FOR A TOTAL OF 8 WEEKS, WITH A MEAL - allopurinol (ZYLOPRIM) 100 mg tablet Take one(1) tablet daily. - meloxicam (MOBIC) 7.5 mg tablet Take 1 tablet by mouth every afternoon. - oxyCODONE-acetaminophe n (PERCOCET) 5-325 mg tablet Take one(1) tablet every six(6) hours as needed. - amLODIPine (NORVASC) 10 mg tablet Take one(1) tablet daily. - dupilumab (DUPIXENT SYRINGE) 100 mg/0.67 mL injection Inject 100 mg subcutaneously every 2 weeks. - lidocaine (LIDODERM) 5 % Apply 1 Patch as directed once daily. TO AFFECTED AREA. REMOVE AFTER 12 HOURS. - diclofenac (VOLTAREN) 1 % topical gel Apply 2 g to affected area four times a day as needed. TO PAINFUL JOINTS , AVOID CONTACT WITH EYES, DO NOT EXCEED 32GM/DAY Problem List As Of Date: 01/20/2024 (None) Prescriptions ordered this encounter Disp Refills Start End PREDNISONE 5 MG TABLET 42 t* 0 01/20/2024 02/17/2024 Route: ORAL Sig: Take 2 tablets by mouth once daily for 14 days, THEN 1 tablet once daily for 14 days. With food . No other nsaids. Medications Discontinued During This Encounter Prescriptions - predniSONE (DELTASONE) 10 mg tablet (Discontinued) Reported on 12/27/2023 - predniSONE (DELTASONE) 20 mg tablet (Discontinued) Reported on 12/27/2023 - PREDNISONE ORAL (Discontinued) Reported on 04/20/2023 Encounter Status:Closed by SENIA THURSTON [facility]/24 [facility] ANTHONYN [facility]) XIANG WEST ([id number]) 1965 M Date Time Provider Department 01/17/24 RERE VALENTINO During your visit today, we recorded the following information about you: Miriam Robles 01/17/2024 8:09 AM Signed Pablo is calling Rere Valentino APRN.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 today saying he is having joint pain and swelling in his middle right finger for the past 3 days. He has used a lidocaine patch which has helped a little, but is still sore and swollen. Please advise patient after 10:00 an today. Patient has been identified by name and birthdate. Duration of symptoms: 3 days Person calling: self Call patient at: on cell [phone] (home) [phone] (cell) Was an appointment scheduled: No Closing statement: Symptom Call: Thank you for calling [facility], your call is very important. A nurse will call in approximately 2-4 hours during business hours. If this is an emergency, please contact 911. Bethany Longoria, RN 01/17/2024 4:01 PM Signed -Pt calling in to see if there has been any input regarding below. Pt identified by name and date. -States is using a lidocaine patch on his finger which is helping relieve pain (up to 04/07 now), but states his finger is swollen almost double in size. -States talked to [facility] provider about this before and discussed how steroids typically help decrease his joint swelling quickly. Would like a prescription sent if at all possible. -States in the past when he had this he ended up going to the ER and sitting for hours before being prescribed a steroid. Would like to avoid this if he can. -Please call Pt to advise. Rere Valentino APRN.ANTHONY 01/17/2024 4:29 PM Addendum Patient returned call, reviewed below message. Please advise any further recommendations after review of triage questions/answers Tried to call patient on cell phone To get more information We were trying to avoid steroids if possible prior to the US as this can alter results Please triage joint symptoms Any redness , tenderness , swelling which joints ,onset symptoms - no discoloration of skin - swelling of the middle finger on right hand for approx 3 days - twice the size of other finger - joint is painful, but has been using a Lidocaine 5 % patch which is helping. - no other symptoms to report He does have history gout and last uric acid is above the goal He states his symptoms do feel like when he had gout flare in the past So far negative for rheumatoid arthritis on labs and neg VIRY The US will be a good indicator for disease activity. When was his last prednisone use ? Last Prednisone use was about 3 weeks ago after last OV. Rere Valentino, NAVEEN.ANTHONY 01/18/2024 5:04 PM Addendum Pss - please schedule [facility] [facility] Nursing - patient will stop in office 2:30pm to confirm joint swelling finger Does not have appointment We will take pictures of finger swelling Patient is unable to do this at home and send through [employer] [facility] Once swelling confirmed will start pred taper Sometimes significant swelling Swelling improving some since yesterday Cut down red meat Drinking regina teas Has not drank 2 weeks Couple beers twice week Discussed gout diet Uric acid not at goal Patient will stop in office to verify swelling finger No fever, no redness Swelling finger Discussed dual energy CT to confirm In past 2018 rheum visit Record review shows knee arthrocentesis inflammatory fluid and rare monosodium urate crystals. XR showing soft tissue swelling. Consistent with gout. Rheum workup Marilynn Adkins 01/19/2024 8:58 AM Signed Called and spoke with patient; patient stated working out and will call back to schedule [employer] CT Rere Valentino APRN.ANTHONY 01/20/2024 8:[address] Allergies As of Date: 01/17/2024 (No Known Allergies) Date Reviewed: 12/27/2023 Reviewed by: Rere Valentino APRN.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 - Fully Assessed Reason for Visit: Patient Question [9847] Primary Visit Diagnosis:Chronic pain of both knees [M25.561, M25.562, G89.29] Other Visit Diagnosis:Hyperuricemi a [E79.0] Order(s):CT KNEE WO GINO RIGHT [[id number]] Order #: [id number] FUTURE Prescriptions as of 01/20/2024 - ergocalciferol 50,000 unit capsule (VITAMIN D2, DRISDOL) Take 1 capsule by mouth two times a week. (FOR EXAMPLE ONE CAPSULE ON WEDNESDAY AND ONE ON WEDNESDAY) FOR A TOTAL OF 8 WEEKS, WITH A MEAL - allopurinol (ZYLOPRIM) 100 mg tablet Take one(1) tablet daily. - meloxicam (MOBIC) 7.5 mg tablet Take 1 tablet by mouth every afternoon. - oxyCODONE-acetaminophe n (PERCOCET) 5-325 mg tablet Take one(1) tablet every six(6) hours as needed. - amLODIPine (NORVASC) 10 mg tablet Take one(1) tablet daily. - predniSONE (DELTASONE) 10 mg tablet as directed - predniSONE (DELTASONE) 20 mg (more content not included)... Normal [facility] 01-07-2024 ANTHONYN Telephone (RULTTB) XIANG WE[facility] ([id number]) 1965 M Date Time Provider Department 01/07/24 MITCH REDDY (ABAD) RULTTB During your visit today, we recorded the following information about you: Mitch Reddy PCNA 01/07/2024 2:07 PM Signed Visit Type: MSK SYNx2 Visit Length: 90, 100 OR 120 MINUTES Order Name/Protocol:US HAND/WRIST SYNOVIAL SCREEN RT+LT AND US FOOT/ANKLE SYNOVIAL SCREEN RT+LT Preferred Provider: N/A Comment: N/A Location: ANY FACILITY Slot held: N/A Torri Landin 01/07/2024 2:18 PM Signed Called patient on January 07, 2024 at 2:17 PM to schedule their MSK US exam. No answer, left VM, 1st attempt. Torri Landin 01/10/2024 11:38 AM Signed Patient has been scheduled for their MSK US exam on 01/31/24 : 12:45 PM at [place]. Allergies As of Date: 01/07/2024 (No Known Allergies) Date Reviewed: 12/27/2023 Reviewed by: Rere Valentino APRN.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 - Fully Assessed Reason for Visit: Appointment [186] Prescriptions as of 01/10/2024 - ergocalciferol 50,000 unit capsule (VITAMIN D2, DRISDOL) Take 1 capsule by mouth two times a week. (FOR EXAMPLE ONE CAPSULE ON WEDNESDAY AND ONE ON WEDNESDAY) FOR A TOTAL OF 8 WEEKS, WITH A MEAL - allopurinol (ZYLOPRIM) 100 mg tablet Take one(1) tablet daily. - meloxicam (MOBIC) 7.5 mg tablet Take 1 tablet by mouth every afternoon. - oxyCODONE-acetaminophe n (PERCOCET) 5-325 mg tablet Take one(1) tablet every six(6) hours as needed. - amLODIPine (NORVASC) 10 mg tablet Take one(1) tablet daily. - predniSONE (DELTASONE) 10 mg tablet as directed - predniSONE (DELTASONE) 20 mg tablet as directed - dupilumab (DUPIXENT SYRINGE) 100 mg/0.67 mL injection Inject 100 mg subcutaneously every 2 weeks. - lidocaine (LIDODERM) 5 % Apply 1 Patch as directed once daily. TO AFFECTED AREA. REMOVE AFTER 12 HOURS. - diclofenac (VOLTAREN) 1 % topical gel Apply 2 g to affected area four times a day as needed. TO PAINFUL JOINTS , AVOID CONTACT WITH EYES, DO NOT EXCEED 32GM/DAY - PREDNISONE ORAL Take by mouth as needed. Problem List As Of Date: 01/07/2024 (None) Encounter Status:Closed by TORRI LANDIN on 01/10/24 Normal [facility] 01-04-2024 CNPN Telephone (JOSEULN) XIANG WEST ([id number]) 1965 M Date Time Provider Department 01/04/24 RERE VALENTINO During your visit today, we recorded the following information about you: Rere Valentino, ASSISTANT EDITOR.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 01/04/2024 11:22 PM Signed Please call patient Low vitamin D maybe associated with fatigue/joint/muscle pain. Start vitamin D script with food, then take over the counter vitamin D 4000 International Units daily with food after script completed. New script sent to pharmacy. Notify office if medication change is not tolerated. Recheck nonfasting labs in 3months, orders have been placed. High pth may correct with correction vit d High crp and sed rate Negative hep and tb High creatinine Please hydrate well and please avoid nsaids High uric acid Have you ever had a gout attack? Xr knee Mild bilateral knee osteoarthritis May see ortho for persistent/ worsening pains Xr ankles Bilateral talocalcaneal tarsal coalition. May see podiatry for persistent/ worsening pains Xr hands Mild osteoarthritis May see hand ortho for persistent/ worsening pains Vascular calcification seen on the xrays Please send xrays to pcp for follow up We will discuss all results further at upcoming visit Component Latest Ref Rng AND Units 12/27/2023 WBC 3.70 - 11.00 k/uL 10.95 RBC 4.20 - 6.00 m/uL 4.97 Hemoglobin 13.0 - 17.0 g/dL 14.9 Hematocrit 39.0 - 51.0 % 45.7 MCV 80.0 - 100.0 fL 92.0 MCH 26.0 - 34.0 pg 30.0 MCHC 30.5 - 36.0 g/dL 32.6 RDW-CV 11.5 - 15.0 % 13.2 Platelet Count 150 - 400 k/uL 262 MPV 9.0 - 12.7 fL 10.0 NRBC /100 WBC 0.0 Absolute nRBC <0.01 k/uL <0.01 Neut% % 57.0 Abs Neut (ANC) 1.45 - 7.50 k/uL 6.24 Lymph% % 35.1 Abs Lymph 1.00 - 4.00 k/uL 3.84 [place]% % 7.0 Abs [place] <0.87 k/uL 0.77 Eosin% % 0.0 Abs Eosin <0.46 k/uL 0.00 Baso% % 0.0 Abs Baso <0.11 k/uL 0.00 Myelo% % 0.9 Left Shift Present Platelet Estimate Adequate Red Cell Morph Reviewed: see results of individual morphologies Polychromasia Slight Ovalocytes Few DTYPE Manual Color Yellow Yellow Clarity Clear Clear Glucose, Urine Negative Negative Bilirubin, Urine Negative Negative Ketones, Urine Negative Trace (A) Specific [place], Ur 1.005 - 1.030 1.025 Hemoglobin/Blood,Ur Negative Negative pH, Urine <8.5 5.0 Protein, Urine Negative Negative Urobilinogen 0.2-1.0 EU/dL 0.2 EU/dL Nitrites Negative Negative Leukest Negative Negative WBC, Urine 0-5 /HPF 0-5 /HPF RBC, Urine 0-2 /HPF 0-2 /HPF Bacteria Negative /HPF Negative Epithelial Cells /HPF None Seen Hyaline Cast 0 /LPF 0 /LPF Protein, Total 6.3 - 8.0 g/dL 6.8 Albumin 3.9 - 4.9 g/dL 4.2 Calcium 8.5 - 10.2 mg/dL 8.9 Bilirubin, Total 0.2 - 1.3 mg/dL 0.2 Alkaline Phosphatase 38 - 113 U/L 99 AST 14 - 40 U/L 15 ALT 10 - 54 U/L 17 Glucose 74 - 99 mg/dL 91 BUN 9 - 24 mg/dL 15 Creatinine 0.73 - 1.22 mg/dL 1.32 (H) Sodium 136 - 144 mmol/L 140 Potassium 3.7 - 5.1 mmol/L 4.3 Chloride 97 - 105 mmol/L 101 CO2 22 - 30 mmol/L 27 Anion Gap 9 - 18 mmol/L 12 eGFR >=60 mL/min/1.73mA? 62 TB Nil <=8.00 IU/mL 0.03 TB1 Ag minus Nil <0.35 IU/mL 0.00 TB2 Ag minus Nil <0.35 IU/mL 0.00 TB Result Negative Mitogen minus Nil >=0.50 IU/mL >9.97 TB Interpretation Infection with M. tuberculosis complex is unlikely. If latent tuberculosis infection is highly suspected, a negative result does not rule out the infection. Specimens from immunocompromised patients and those <5 years of age may show false negative results. In case of a contact investigation, please repeat 8-12 weeks after a known exposure. CCP Antibody IgG Qualitative Negative Negative CCP Antibody, IgG <20 Units <15 Hep B Surface Ab, Qual Negative Hep B Surf Ab Quant mIU/mL <8.00 Rheumatoid Factor <16 IU/mL 10 VIRY Negative Negative C3 86 - 166 mg/dL 145 C4 13 - 46 mg/dL 42 Vitamin D 25 Hydroxy 31.0 - 80.0 ng/mL 7.1 (L) Uric Acid 4.0 - 8.1 mg/dL 8.3 (H) CRP <0.9 mg/dL 1.5 (H) WSR 0 - 15 mm/hr 34 (H) G-6-PD Quantitative 9.8 - 15.5 U/g Hb 11.9 PTH, Intact 15 - 65 pg/mL 81 (H) Hep C Antibody IA Negative Negative Hep B Surface Ag Negative Negative Hep B Core Ab, Total Negative Negative Senia Thurston MA 01/05/2024 8:08 AM Signed Left message for patient to call office regarding below. Baylee Soler RN 01/05/2024 9:40 AM Signed -Pt verified by Name and . -Pt Called back and message given as stated below. -pt states may have been told had gout before - pt recalls having sore great toes, knees. -Pt asking for explanation of below results: Xr ankles Bilateral talocalcaneal tarsal coalition Vascular calcification seen on the xrays ----- Please send xrays to pcp for follow up Karina Ramires 01/07/2024 9:44 AM Signed Patient calling. Vitamin D Rx was sent to the wrong pharmacy. Please re-send to W (more content not included)... Normal [facility] ANTHONYNon 12-29-2023 CNPN Telephone (ORQ) XIANG WEST ([id number]) 1965 M Date Time Provider Department 12/29/23 RERE VALENTINO ORQ During your visit today, we recorded the following information about you: Cookie Mcclure 12/29/2023 2:06 PM Signed Pablo is calling Rere Valentino APRN.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 today to let provider know the patches that she prescribed for pt have been helping. Pt states that since using them his knee pain has improved significantly. Pt just wanting to update provider and say thank you. Nothing further is needed at this time. Patient has been identified by name and birthdate. Duration of symptoms: N/A Person calling: self Call patient at: at home [phone] (home) [phone] (cell) Was an appointment scheduled: No Closing statement: Results or non-symptom based questions: Thank you for calling [facility], your call will be returned within the next business day. Cookie Mcclure Allergies As of Date: 12/29/2023 (No Known Allergies) Date Reviewed: 12/27/2023 Reviewed by: Rere Valentino APRN.CNP - Fully Assessed Reason for Visit: Patient Update [1234] Prescriptions as of 01/02/2024 - allopurinol (ZYLOPRIM) 100 mg tablet Take one(1) tablet daily. - meloxicam (MOBIC) 7.5 mg tablet Take 1 tablet by mouth every afternoon. - oxyCODONE-acetaminophe n (PERCOCET) 5-325 mg tablet Take one(1) tablet every six(6) hours as needed. - amLODIPine (NORVASC) 10 mg tablet Take one(1) tablet daily. - predniSONE (DELTASONE) 10 mg tablet as directed - predniSONE (DELTASONE) 20 mg tablet as directed - dupilumab (DUPIXENT SYRINGE) 100 mg/0.67 mL injection Inject 100 mg subcutaneously every 2 weeks. - lidocaine (LIDODERM) 5 % Apply 1 Patch as directed once daily. TO AFFECTED AREA. REMOVE AFTER 12 HOURS. - diclofenac (VOLTAREN) 1 % topical gel Apply 2 g to affected area four times a day as needed. TO PAINFUL JOINTS , AVOID CONTACT WITH EYES, DO NOT EXCEED 32GM/DAY - PREDNISONE ORAL Take by mouth as needed. Problem List As Of Date: 12/29/2023 (None) Encounter Status:Closed by RERE VALENTINO on 01/02/24 Normal [facility] 25(OH)D3 SerPl-ncon 2023 25-hydroxyvitamin D3 [Mass/Vol] 7.1 ng/mL Low 31.0-80.0 [facility] Comment on above: Order Comment: Trang crystal Type: BLOOD SPECIMENOrdering Facility: [facility] Address: [address] [place] [address] Result Comment: Clas sification of 25 OH Vitamin D status: Deficiency/Insufficiency: < or = 30 ng/ml. Sufficiency/Optimal Levels: 31-80 ng/mL Toxicity: > 100 ng/mL. Test performed by chemiluminescent immunoassay. Performed By: #### 1 989-3 ####[facility]CL[facility] [id number] [place] [address] [place] VIRY BY IFA WITH REFLEXon Nuclear Ab Ql (S) Negative Normal Negative [facility] Comment on above: Order Comment: Trang crystal Type: BLOOD SPECIMENOrdering Facility: [facility] Address: [address] [place] [address] Result Comment: Anti -nuclear antibody test is used as an aid in diagnosis of systemic autoimmune diseases. Where positive and clinically warranted, follow-up using disease-specific testing is recommended. Low positive titers are not uncommon with advanced age, certain chronic infections, and malignancies among others. Test methodology: Indirect fluorescence immunoassay (IFA) using HEp-2 cells. Performed By: #### A NAIFR ####[facility] [id number] [address] BLOOD TB SCREENon 12-27-2023 M. tuberculosis tuberculin stim IFN-g Ql (Bld) Negative Normal [facility] Comment on above: Order Comment: Speci men Type: BLOOD SPECIMENOrdering Facility: [facility] Address: [address] [place] [address] Performed By: #### I NFTBP ####[facility] [id number] [address] [place] MITOGEN MINUS NIL >9.97 Normal >=0.50 [facility] Comment on above: Order Comment: Speci men Type: BLOOD SPECIMENOrdering Facility: [facility] Address: [address] [place] [address] Performed By: #### I NFTBP ####[facility] [id number] [address] TB GAMMA INTERPRETATION Infection with M . tuberculosis complex is unlikely. If latent tuberculosis infection is highly suspected, a negative result does not rule out the infection. Specimens from immunocompromised patients and those <5 years of age may show false negative results. In case of a contact investigation, please repeat 8-12 weeks after a known exposure. Normal [facility] Comment on above: Order Comment: Speci men Type: BLOOD SPECIMENOrdering Facility: [facility] Address: [address] [place] [address] Performed By: #### I NFTBP ####[facility] [id number] [address] TB NIL 0.03 IU/mL Normal <=8.00 [facility] Comment on above: Order Comment: Speci men Type: BLOOD SPECIMENOrdering Facility: [facility] Address: [address] [place] [address] Performed By: #### I NFTBP ####[facility] [id number] [place] [address] [place] TB1 AG MINUS NIL 0.00 IU/mL Normal <0.35 [facility] Comment on above: Order Comment: Speci men Type: BLOOD SPECIMENOrdering Facility: [facility] Address: [address] [place] [address] Performed By: #### I NFTBP ####[facility] [id number] [place] [address] [place] TB2 AG MINUS NIL 0.00 IU/mL Normal <0.35 [facility] Comment on above: Order Comment: Speci men Type: BLOOD SPECIMENOrdering Facility: [facility] Address: [address] [place] [address] Performed By: #### I NFTBP ####[facility] [id number] [place] [address] [place] C3 SerPl-mCncon 12-27-2023 Complement C3 [Mass/Vol] 145 mg/dL Normal 86-166 [facility] Comment on above: Order Comment: Speci men Type: BLOOD SPECIMENOrdering Facility: [facility] Address: [address] [place] [address] Performed By: #### 4 485-9, 04033-7, 1987-5, 2731-8 ####[facility] [id number] [place] [id number] [place] C4 SerPl-mCncon 12-27-2023 Complement C4 [Mass/Vol] 42 mg/dL Normal 13-46 [facility] Comment on above: Order Comment: Speci men Type: BLOOD SPECIMENOrdering Facility: [facility] Address: [address] [place] [address] Performed By: #### 1 1572-5, 3084-1, 4498-2 ####[facility] [id number] [place] [address] [place] CBC W Auto Differential pane l (Bld)on 12-27-2023 Basophils (Bld) [#/Vol] 0.00 10*3/uL Normal <0.11 [facility] Comment on above: Order Comment: Speci men Type: BLOOD SPECIMENOrdering Facility: [facility] Address: [address] [place] [address] Performed By: #### 4 537-7, 02739-8 ####[facility] [id number] [place] [address] [place] Basophils/100 WBC (Bld) 0.0 % Normal [facility] Comment on above: Order Comment: Speci men Type: BLOOD SPECIMENOrdering Facility: [facility] Address: [address] [place] [address] Performed By: #### 4 537-7, 06855-9 ####[facility] [id number] [place] [address] [place] Differential cell count method Nom (Bld) Manual Normal [facility] Comment on above: Order Comment: Speci men Type: BLOOD SPECIMENOrdering Facility: [facility] Address: [address] [place] [address] Performed By: #### 4 537-7, 03852-9 ####[facility] [id number] [place] [address] [place] Eosinophils (Bld) [#/Vol] 0.00 10*3/uL Normal <0.46 [facility] Comment on above: Order Comment: Speci men Type: BLOOD SPECIMENOrdering Facility: [facility] Address: [address] [place] [address] Performed By: #### 4 537-7, 63461-3 ####[facility] [id number] [place] [address] [place] Eosinophils/100 WBC (Bld) 0.0 % Normal [facility] Comment on above: Order Comment: Speci men Type: BLOOD SPECIMENOrdering Facility: [facility] Address: [address] [place] [address] Performed By: #### 4 537-7, 36519-8 ####[facility] [id number] [place] [address] [place] Erythrocyte distribution width (RBC) [Ratio] 13.2 % Normal 11.5-15.0 [facility] Comment on above: Order Comment: Speci men Type: BLOOD SPECIMENOrdering Facility: [facility] Address: [address] [place] [address] Performed By: #### 4 537-7, 28854-4 ####[facility] [id number] [place] [address] [place] Hematocrit (Bld) [Volume fraction] 45.7 % Normal 39.0-51.0 [facility] Comment on above: Order Comment: Speci men Type: BLOOD SPECIMENOrdering Facility: [facility] Address: [address] [place] [address] Performed By: #### 4 537-7, 30913-5 ####[facility] [id number] [place] [address] [place] Hemoglobin (Bld) [Mass/Vol] 14.9 g/dL Normal 13.0-17.0 [facility] Comment on above: Order Comment: Speci men Type: BLOOD SPECIMENOrdering Facility: [facility] Address: [address] [place] [address] Performed By: #### 4 537-7, 26451-6 ####[facility] [id number] [place] [address] [place] Lymphocytes (Bld) [#/Vol] 3.84 10*3/uL Normal 1.00-4.00 [facility] Comment on above: Order Comment: Speci men Type: BLOOD SPECIMENOrdering Facility: [facility] Address: [address] [place] [address] Performed By: #### 4 537-7, 46713-4 ####[facility] [id number] [place] [address] [place] Lymphocytes/100 WBC (Bld) 35.1 % Normal [facility] Comment on above: Order Comment: Speci men Type: BLOOD SPECIMENOrdering Facility: [facility] Address: [address] [place] [address] Performed By: #### 4 537-7, 98904-4 ####[facility] [id number] [place] [address] [place] MCH (RBC) [Entitic mass] 30.0 pg Normal 26.0-34.0 [facility] Comment on above: Order Comment: Speci men Type: BLOOD SPECIMENOrdering Facility: [facility] Address: [address] [place] [address] Performed By: #### 4 537-7, 32030-6 ####[facility] [id number] [place] [address] [place] MCHC (RBC) [Mass/Vol] 32.6 g/dL Normal 30.5-36.0 [facility] Comment on above: Order Comment: Speci men Type: BLOOD SPECIMENOrdering Facility: [facility] Address: [address] [place] [address] Performed By: #### 4 537-7, 38146-2 ####[facility] [id number] [address] [place] MCV (RBC) [Entitic vol] 92.0 fL Normal 80.0-100.0 [facility] Comment on above: Order Comment: Speci men Type: BLOOD SPECIMENOrdering Facility: [facility] Address: [address] [place] [address] Performed By: #### 4 537-7, 42759-0 ####[facility] [id number] [place] [address] [place] Monocytes (Bld) [#/Vol] 0.77 10*3/uL Normal <0.87 [facility] Comment on above: Order Comment: Speci men Type: BLOOD SPECIMENOrdering Facility: [facility] Address: [address] [place] [address] Performed By: #### 4 537-7, 21934-9 ####[facility] [id number] [place] [address] [place] Monocytes/100 WBC (Bld) 7.0 % Normal [facility] Comment on above: Order Comment: Speci men Type: BLOOD SPECIMENOrdering Facility: [facility] Address: [address] [place] [address] Performed By: #### 4 537-7, 67099-6 ####[facility] [id number] [place] [address] [place] MYELO% 0.9 % Normal [facility] Comment on above: Order Comment: Speci men Type: BLOOD SPECIMENOrdering Facility: [facility] Address: [address] [place] [address] Performed By: #### 4 537-7, 44325-0 ####[facility] [id number] [place] [address] [place] Neutrophils (Bld) [#/Vol] 6.24 10*3/uL Normal 1.45-7.50 [facility] Comment on above: Order Comment: Speci men Type: BLOOD SPECIMENOrdering Facility: [facility] Address: [address] [place] [address] Performed By: #### 4 537-7, 26134-4 ####[facility] [id number] [place] [address] [place] Neutrophils/100 WBC (Bld) 57.0 % Normal [facility] Comment on above: Order Comment: Speci men Type: BLOOD SPECIMENOrdering Facility: [facility] Address: [address] [place] [address] Performed By: #### 4 537-7, 94138-1 ####[facility] [id number] [place] [address] [place] Nucleated RBC (Bld) [#/Vol] 10*3/uL Normal <0.01 [facility] Comment on above: Order Comment: Speci men Type: BLOOD SPECIMENOrdering Facility: [facility] Address: [address] [place] [address] Performed By: #### 4 537-7, 60152-7 ####[facility] [id number] [place] [address] [place] Nucleated RBC/100 WBC (Bld) [Ratio] 0.0 /100 WBC Normal [facility] Comment on above: Order Comment: Speci men Type: BLOOD SPECIMENOrdering Facility: [facility] Address: [address] [place] [address] Performed By: #### 4 537-7, 62938-5 ####[facility] [id number] [place] [address] [place] Ovalocytes LM Ql (Bld) Few Normal [facility] Comment on above: Order Comment: Speci men Type: BLOOD SPECIMENOrdering Facility: [facility] Address: [address] [place] [address] Performed By: #### 4 537-7, 10345-1 ####[facility] [id number] [place] [address] [place] Platelet mean volume (Bld) [Entitic vol] 10.0 fL Normal 9.0-12.7 [facility] Comment on above: Order Comment: Speci men Type: BLOOD SPECIMENOrdering Facility: [facility] Address: [address] [place] [address] Performed By: #### 4 537-7, 80716-5 ####[facility] [id number] [place] [address] [place] Platelets (Bld) [#/Vol] 262 10*3/uL Normal 150-400 [facility] Comment on above: Order Comment: Speci men Type: BLOOD SPECIMENOrdering Facility: [facility] Address: [address] [place] [address] Performed By: #### 4 537-7, 35727-5 ####[facility] [id number] [place] [address] [place] Platelets Estimate (Bld) [#/Vol] Adequate Normal [facility] Comment on above: Order Comment: Speci men Type: BLOOD SPECIMENOrdering Facility: [facility] Address: [address] [place] [address] Performed By: #### 4 537-7, 95846-8 ####[facility] [id number] [place] [address] [place] Polychromasia LM Ql (Bld) Slight Normal [facility] Comment on above: Order Comment: Speci men Type: BLOOD SPECIMENOrdering Facility: [facility] Address: [address] [place] [address] Performed By: #### 4 537-7, 64822-7 ####[facility] [id number] [place] [address] [place] RBC (Bld) [#/Vol] 4.97 10*6/uL Normal 4.20-6.00 [facility] Comment on above: Order Comment: Speci men Type: BLOOD SPECIMENOrdering Facility: [facility] Address: [address] [place] [address] Performed By: #### 4 537-7, 77224-3 ####[facility] [id number] [place] [address] [place] RED CELL MORPH Reviewed: see result s of individual morphologies Normal [facility] Comment on above: Order Comment: Speci men Type: BLOOD SPECIMENOrdering Facility: [facility] Address: [address] [place] [address] Performed By: #### 4 537-7, 01741-5 ####[facility] [id number] [place] [address] [place] WBC (Bld) [#/Vol] 10.95 10*3/uL Normal 3.70-11.00 [facility] Comment on above: Order Comment: Speci men Type: BLOOD SPECIMENOrdering Facility: [facility] Address: [address] [place] [address] Performed By: #### 4 537-7, 88413-8 ####[facility] [id number] [place] [address] [place] WBC Left Shift Ql (Bld) Present Normal C [facility] Comment on above: Order Comment: Speci men Type: BLOOD SPECIMENOrdering Facility: [facility] Address: [address] [place] [address] Performed By: #### 4 537-7, 27314-5 ####[facility] [id number] [place] [id number] [place] CNOVon 12-27-2023 CNOV Office Visit (AGUSTÍN ) XIANG WEST ([id number]) 1965 M Date Time Provider Department 12/27/23 11:00 AM RERE VALENTINO During your visit today, we recorded the following information about you: Temperature Pulse Blood pressure Weight 99.4 degrees 89/minute 140/86 111.6 kg Rere Valentino, 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 Xiang West is here today at request of Dr. Aguiar specifically for consultation of my opinion in regards to the chief complaint listed below. Correspondence will be shared today via the [employer] electronic health record or through regular mail, where applicable. History of Present Illness Xiang West is a 58 year old Black male who presents on 12/27/2023 for an in-person visit for evaluation of New Patient Evaluation (alicia knee pain -- c/o Rt knee pain -- finished course of steroid for last flare 2 wks ago -- > 5 days since last dose of Prednisone . can feel the pain coming back in Rt knee - - seen in hospital -- ? gout vs arthritis ). Xiang reports a current pain level of 7 (Knee-Right). He describes the pain as Aching. The pain is Continuous, and has lasted for 2 Days. He is currently taking diclofenac sodium. Onset of symptoms began at age 48. Xiang is both RF and CCP negative. There are no rheumatoid nodules present. Xiang has joint swelling (Kees, ankles, hands - pips). Xiang reports he does not have any morning stiffness. HISTORY OF PRESENT ILLNESS Only see rheumatology 1 visit in the past Multiple ER visits for joint pain History gout? Allopurinol 100mg daily Went to ER twice in last few weeks Several years joint Intermittent can go months without anything or multiple times month Pains - Knees, ankles, pips, mcps, toes Swelling - ankles , toes, knees, pips, mcps Am stiffness - no If joints stiff and swollen only gets worse not better Feels locked in position Unless having flare no am stiffness Last time could not get out of bed for 4 days Could not bend either knees Painful stiff swelling Used to be able to work it out but not does not stop pain gets worse Pain stiffness swelling relieved with prednisone No redness Does have tenderness when happens No known history RA or lupus Family history gout Not increased stress No infection proceeding INTERVAL HISTORY Right knee pain Worse with weather changes Not drinking much water Was dehydrated when went to er in dec Eating better Cutting back on red med meats Eating more veggies Rarely 3 alcohol drinks week Musculoskeletal History Age at start of MSK symptoms: 48 years Joint pain: right knee, left knee, right ankle, left ankle, right MCP, right PIP, left MCP, left PIP, right toes, left toes, right MTP, left MTP No gelling Joint swelling (Comment: Kees, ankles, hands - pips) Anything make it better?: Yes (Comment: prednisone, pains meds,) Knee popping, locking, or clicking?: Yes (Comment: feels straight locked because swelling) Knee gives way or falls?: No No joint replacements Other Arthritis-related Surgery Location Date Comment right elbow sx Rheumatoid Arthritis History Age at start of arthritis symptoms: 48 years Rheumatoid Factor negative Anti CCP negative No rheumatoid nodules No morning stiffness Joint Swelling Joint Swelling: Kees, ankles, hands - pips No joint replacement Other RA-related surgery Location Date Comment right elbow sx Extra-Articular Features / Comorbidities No Sjogren's No history of malignancy No vasculitis No episcleritis No scleritis No dry eyes No dry mouth No pleural effusions No lung nodules No congestive heart failure No pericarditis No myocardial infarction No peripheral neuropathy No anemia No neutropenia No thrombocytopenia Systemic Lupus Erythematosus (SLE) History Relevant to SLICC Classification Criteria - no thrombocytopenia (<100,000/mm3) Relevant to New ACR and EULAR Classification Criteria - no thrombocytopenia Autoimmune Disease History No dry eyes no dry mouth Gout History Frequency of attacks at initial presentation: patient is unsure sometimes called gout attacks and other times not . he is not sure. more frequently RISK FACTORS No diuretic use No use of low dose aspirin No use of cyclosporine Family history: uncle Diet: cutting back recently on red meat, trying to increase water intake No chronic kidney disease Hypertension No congestive heart failure No coronary artery disease No obstructive sleep apnea No history of kidney stones No metabolic disease No solid (more content not included)... Normal [facility] CRP SerPl-mCncon 12-27-2023 CRP [Mass/Vol] 1.5 mg/dL High <0.9 [facility] Comment on above: Order Comment: Speci men Type: BLOOD SPECIMENOrdering Facility: [facility] Address: [address] [place] [address] Performed By: #### 4 485-9, 99557-5, 1988-03, 2731-06 ####[facility] [id number] [place] [address] [place] Comprehensive metabolic 2000 panelon 12-27-2023 Albumin [Mass/Vol] 4.2 g/dL Normal 3.9-4.9 [facility] Comment on above: Order Comment: Speci men Type: BLOOD SPECIMENOrdering Facility: [facility] Address: [address] [place] [address] Performed By: #### 4 485-9, 29904-9, 2731-06 ####[facility] [id number] [place] [address] [place] ALP [Catalytic activity/Vol] 99 U/L Normal 38-113 [facility] Comment on above: Order Comment: Speci men Type: BLOOD SPECIMENOrdering Facility: [facility] Address: [address] [place] [address] Performed By: #### 4 485-9, 09940-9, 2731-06 ####[facility] [id number] [place] [id number] [place] ALT [Catalytic activity/Vol] 17 U/L Normal 10-54 [facility] Comment on above: Order Comment: Speci men Type: BLOOD SPECIMENOrdering Facility: [facility] Address: [address] [place] [address] Performed By: #### 4 485-9, 06412-7, 2731-06 ####[facility] [id number] [place] [address] [place] Anion gap [Moles/Vol] 12 mmol/L Normal 9-18 [facility] Comment on above: Order Comment: Speci men Type: BLOOD SPECIMENOrdering Facility: [facility] Address: [address] [place] [address] Performed By: #### 4 485-9, 32039-3, 2731-06 ####[facility] [id number] [place] [address] [place] AST [Catalytic activity/Vol] 15 U/L Normal 14-40 [facility] Comment on above: Order Comment: Speci men Type: BLOOD SPECIMENOrdering Facility: [facility] Address: [address] [place] [address] Performed By: #### 4 485-9, 65982-9, 2731-06 ####[facility] [id number] [place] [address] [place] Bilirubin [Mass/Vol] 0.2 mg/dL Normal 0.2-1.3 [facility] Comment on above: Order Comment: Speci men Type: BLOOD SPECIMENOrdering Facility: [facility] Address: [address] [place] [address] Performed By: #### 4 485-9, 69329-6, 2731-06 ####[facility] [id number] [place] [address] [place] Calcium [Mass/Vol] 8.9 mg/dL Normal 8.5-10.2 [facility] Comment on above: Order Comment: Speci men Type: BLOOD SPECIMENOrdering Facility: [facility] Address: [address] [place] [address] Performed By: #### 4 485-9, 12778-4, 2731-06 ####[facility] [id number] [place] [id number] [place] Chloride [Moles/Vol] 101 mmol/L Normal 97-105 [facility] Comment on above: Order Comment: Speci men Type: BLOOD SPECIMENOrdering Facility: [facility] Address: [address] [place] [address] Performed By: #### 4 485-9, 70345-9, 1988-03, 2731-06 ####[facility] [id number] [place] [address] [place] CO2 [Moles/Vol] 27 mmol/L Normal 22-30 [facility] Comment on above: Order Comment: Speci men Type: BLOOD SPECIMENOrdering Facility: [facility] Address: [address] [place] [address] Performed By: #### 4 485-9, 03503-5, 1988-03, 2731-06 ####[facility] [id number] [place] [address] [place] Creatinine [Mass/Vol] 1.32 mg/dL High 0.73-1.22 [facility] Comment on above: Order Comment: Speci men Type: BLOOD SPECIMENOrdering Facility: [facility] Address: [address] [place] [address] Performed By: #### 4 485-9, 78505-3, 1988-03, 2731-06 ####[facility] [id number] [place] [address] [place] Creatinine and Glomerular filtration rate.predicted panel (S/P/Bld) 62 mL/min/1.73m??? Normal >=60 [facility] Comment on above: Order Comment: Speci men Type: BLOOD SPECIMENOrdering Facility: [facility] Address: [address] [place] [address] Result Comment: Laxmi mated Glomerular Filtration Rate (eGFR) is calculated using the 2020 CKD-EPI creatinine equation. This equation utilizes serum creatinine, sex, and age as parameters. The creatinine assay has traceable calibration to isotope dilution-mass spectrometry. Refer to KDIGO guidelines for clinical interpretation. In patients with unstable renal function, e.g. those with acute kidney injury, the eGFR may not accurately reflect actual GFR. Performed By: #### 4 485-9, , 2731-06 ####[facility] [id number] [address] [address] [place] Glucose [Mass/Vol] 91 mg/dL Normal 74-99 [facility] Comment on above: Order Comment: Trang crystal Type: BLOOD SPECIMENOrdering Facility: [facility] Address: [address] [place] [address] Result Comment: The [place] Diabetes Association (ADA) provides guidance for cutoff values for fasting glucose and random glucose. The ADA defines fasting as no caloric intake for at least 8 hours. Fasting plasma glucose results between 100 to 125 mg/dL indicate increased risk for diabetes (prediabetes). Fasting plasma glucose results greater than or equal to 126 mg/dL meet the criteria for diagnosis of diabetes. In the absence of unequivocal hyperglycemia, results should be confirmed by repeat testing. In a patient with classic symptoms of hyperglycemia or hyperglycemic crisis, random plasma glucose results greater than or equal to 200 mg/dL meet the criteria for diagnosis of diabetes. Reference: Standards of Medical Care in Diabetes 2016, [place] [employer]. Diabetes Care. 2016.39(Suppl 1). Performed By: #### 4 485-9, , 2731-06 ####[facility] [id number] [address] [address] [place] Potassium [Moles/Vol] 4.3 mmol/L Normal 3.7-5.1 [facility] Comment on above: Order Comment: Trang crystal Type: BLOOD SPECIMENOrdering Facility: [facility] Address: [address] [place] [address] Performed By: #### 4 485-9, 21259-3, 2731-06 ####[facility] [id number] [address] [address] [place] Protein [Mass/Vol] 6.8 g/dL Normal 6.3-8.0 [facility] Comment on above: Order Comment: Speci men Type: BLOOD SPECIMENOrdering Facility: [facility] Address: [address] [place] [address] Performed By: #### 4 485-9, 88707-0, 1988-03, 2731-06 ####[facility] [id number] [place] [address] [place] Sodium [Moles/Vol] 140 mmol/L Normal 136-144 [facility] Comment on above: Order Comment: Speci men Type: BLOOD SPECIMENOrdering Facility: [facility] Address: [address] [place] [address] Performed By: #### 4 485-9, 08055-4, 1988-03, 2731-06 ####[facility] [id number] [place] [address] [place] Urea nitrogen [Mass/Vol] 15 mg/dL Normal 9-24 [facility] Comment on above: Order Comment: Speci men Type: BLOOD SPECIMENOrdering Facility: [facility] Address: [address] [place] [address] Performed By: #### 4 485-9, 73531-8, 1988-03, 2731-06 ####[facility] [id number] [place] [address] [place] Cyclic citrullinated peptide IgG Qnon 12-27-2023 CCP ANTIBODY IGG QUALITATIVE Negative Normal Negative [facility] Comment on above: Order Comment: Speci men Type: BLOOD SPECIMENOrdering Facility: [facility] Address: [address] [place] [address] Performed By: #### 3 3935-8 ####[facility] [id number] [place] [id number] [place] ESR Westergren method (Bld) [Velocity]on 01-29-2024 ESR (Bld) [Velocity] 34 mm/h High 0-[address] [facility] Comment on above: Order Comment: Trang crystal Type: BLOOD SPECIMENOrdering Facility: [facility] Address: [address] [place] [address] Performed By: #### 4 537-7, 12880-0 ####[facility] [id number] [place] [address]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 [place], [address] Urea nitrogen [Mass/Vol] 23 mg/dL High 7-18 [facility] Comment on above: Performed By: #### L 500.2500, L100.0100 #### [facility] [address] [place], [address] Basophil percentageOrdered B y: Christiane Koram on 11-29-2023 Basophil percentage Not Reportable [facility] Basophils/100 WBC (Bld) 0.3 % 0-1 [facility] Chloride [Moles/Vol] 110 mmol/L 98-107 [facility] Eosin[facility]/100 WBC (Bld) 0.3 % 0-5 [facility] Glucose [Mass/Vol] 98 mg/dL 74-106 [facility] Neutrophils (Bld) [#/Vol] 11.3 10*3/uL 2.0-7.7 [facility] Neutrophils/100 WBC (Bld) 78.4 % 47-70 [facility] Potassium [Moles/Vol] 4.3 mmol/L 3.5-5.1 [facility] Sodium [Moles/Vol] 137 mmol/L 136-145 [facility] WBC (Bld) [#/Vol] 14.4 10*3/uL 4.4-11.[address] [facility] Blood erythrocytes count (nu mber/volume)Ordered By: Christiane Martin on 11-29-2023 RBC (Bld) [#/Vol] 4.18 10*6/uL 4.6-6.[address] [facility] Blood hemoglobin measurement (mass/volume)Ordered By: Christiane Martin on 11-29-2023 Hemoglobin (Bld) [Mass/Vol] 12.9 g/dL 13.0-16.5 [facility] Blood lymphocytes/100 leukoc ytesOrdered By: Christiane Martin on 11-29-2023 Lymphocytes/100 WBC (Bld) 12.7 % 19-41 [facility] Blood monocytes/100 leukocyt esOrdered By: Christiane Martin on 11-29-2023 Monocytes/100 WBC (Bld) 7.7 % 0-10 [facility] Blood platelet mean volumeOr dered By: Christiane Martin on 11-29-2023 Platelet mean volume (Bld) [Entitic vol] 9.3 fL 6.2-12.0 [facility] CBC W/Diff, Automatedon Absolute Lymph 1.83 X10 3/uL Normal 0.83-4.51 [facility] Comment on above: Performed By: #### L 500.2500, L100.0100 #### [facility] [address] [place], [address] Absolute Neut 11.3 X10 3/uL High 2.0-7.7 [facility] Comment on above: Performed By: #### L 500.2500, L100.0100 #### [facility] [address] [place], [address] Basophils/100 WBC (Bld) 0.3 % Normal 0-1 [facility] Comment on above: Performed By: #### L 500.2500, L100.0100 #### [facility] [address] [place], [address] Eosinophils/100 WBC (Bld) 0.3 % Normal 0-5 [facility] Comment on above: Performed By: #### L 500.2500, L100.0100 #### [facility] [address] [place], [address] Erythrocyte distribution width (RBC) [Ratio] 12.8 % Normal 11.6-14.6 [facility] Comment on above: Performed By: #### L 500.2500, L100.0100 #### [facility] [address] [place], [address] Hematocrit (Bld) [Volume fraction] 38.5 % Low 40-54 [facility] Comment on above: Performed By: #### L 500.2500, L100.0100 #### [facility] [address] [place], [address] Hemoglobin (Bld) [Mass/Vol] 12.9 g/dL Low 13.0-16.5 [facility] Comment on above: Performed By: #### L 500.2500, L100.0100 #### [facility] [address] [place], [address] IG% 0.600 Normal 0.0-0.9 [facility] Comment on above: Result Comment: IG% - Immature Granulocytes (promyelocytes, myelocytes and metamyelocytes) > 1% indicates that a LEFT SHIFT is Present. Performed By: #### L 500.2500, L100.0100 #### [facility] [address] [place], [address] Lymphocytes/100 WBC (Bld) 12.7 % Low 19-41 [facility] Comment on above: Performed By: #### L 500.2500, L100.0100 #### [facility] [address] [place], [address] MCH (RBC) [Entitic mass] 30.9 pg Normal 27.0-32.0 [facility] Comment on above: Performed By: #### L 500.2500, L100.0100 #### [facility] [address] [place], [address] MCHC (RBC) [Mass/Vol] 33.5 g/dL Normal 32-36 [facility] Comment on above: Performed By: #### L 500.2500, L100.0100 #### [facility] [address] [place], [address] MCV (RBC) [Entitic vol] 92.1 fL Normal 80-94 [facility] Comment on above: Performed By: #### L 500.2500, L100.0100 #### [facility] [address] [place], [address] Monocytes/100 WBC (Bld) 7.7 % Normal 0-10 [facility] Comment on above: Performed By: #### L 500.2500, L100.0100 #### [facility] [address] [place], [address] Neutrophils/100 WBC (Bld) 78.4 % High 47-70 [facility] Comment on above: Performed By: #### L 500.2500, L100.0100 #### [facility] [address] [place], [address] Nucleated RBC (Bld) [#/Vol] 0 10*3/uL Normal 0-5 [facility] Comment on above: Performed By: #### L 500.2500, L100.0100 #### [facility] [address] [place], [address] Platelet mean volume (Bld) [Entitic vol] 9.3 fL Normal 6.2-12.0 [facility] Comment on above: Performed By: #### L 500.2500, L100.0100 #### [facility] [address] [place], [address] Platelets (Bld) [#/Vol] 428 10*3/uL Normal 150-450 [facility] Comment on above: Performed By: #### L 500.2500, L100.0100 #### [facility] [address] [place], [address] RBC (Bld) [#/Vol] 4.18 10*6/uL Low 4.6-6.[address] [facility] Comment on above: Performed By: #### L 500.2500, L100.0100 #### [facility] [address] [place], [address] RDW SD 43.6 fl Normal 35.1-43.9 [facility] Comment on above: Performed By: #### L 500.2500, L100.0100 #### [facility] [address] [place], [address] WBC (Bld) [#/Vol] 14.4 10*3/uL High 4.4-11.[address] [facility] Comment on above: Performed By: #### L 500.2500, L100.0100 #### [facility] [address] [place], [address] Determination of erythrocyte mean corpuscular volume (MCV)Ordered By: Christiane Martin on 11-29-2023 MCV (RBC) [Entitic vol] 92.1 fL 80-94 [facility] Discharge Instructionon Discharge Instruction [facility] Medical Records Department [address] [place] [address] Instructions for Home/Discharge Instructions 11/29/23 1005 MR#: [id number] Acct: [id number] Name: XIANG WEST Rep #: [id number] : 1965 58 From: Wayne Friend MD PCP: Dr. Rere Aguiar MD Status:ADM ANITA Discharge Instructions Diet Discharge Diet: Low fat / Low cholesterol Activity Discharge Activity: Return to Normal Activity Dressing / Incision Call your doctor if you observe: Fever of 101 or Higher, Shortness of breath, Dizziness, Fainting spells, Swelling in the ankles, Chest pain and Increased palpitations (irregular heartbeat) Follow Up Care Test Results: Test results from this visit will be discussed in further detail at your follow-up appointment, if applicable. Discharge Plan Admission Admit Date/Time: 11/26/23 11:31 Attending Provider: Wayne Friend Primary Care Provider: Rere Aguiar Consulting Providers: Christiane Martin Instructions Additional Instructions / Restrictions: Follow-up with your primary care doctor as an outpatient to obtain a referral to rheumatology on the off chance that this is not gout. In the meantime try to stick with the diet we talked about at length today for gout, your uric acid which can be elevated in gout was elevated back in April when you presented to the ER and you are on allopurinol which should help treat the gout if that is what the joint pain is. You also have high blood pressure so you were started on a medication called [facility] the main side effect of this can be lower extremity swelling but you do need to follow-up with your primary care doctor as you may need further blood pressure medication adjustments. This can resolve with exercise like we talked about this morning. Discharge Orders/Prescriptions Prescriptions: New amlodipine 10 mg Tablet 10 mg PO DAILY 30 Days Qty: 30 0RF prednisone 10 mg tablet 40 mg PO BREAKFAST Qty: 53 0RF Rx Instructions: Take 4 tablets daily for 5 days then 3 tablets daily for 5 days then 2 tablets daily for 5 days then 1 tablet daily for 5 days then half tablet daily for 6 days Continued allopurinol 100 mg tablet 100 mg PO DAILY 30 Days Qty: 30 2RF Discontinued prednisone 20 mg tablet 40 mg PO DAILY 10 Days Qty: 20 0RF meloxicam 7.5 mg tablet 7.5 mg PO DAILY Qty: 20 0RF hydrocodone-acetaminop hen [hydrocodone-acetamino phen] 5-325 mg tablet 1 tab PO Q4H PRN PRN (Reason: Pain) 2 Days Qty: 4 0RF prednisone 20 mg tablet 40 mg PO DAILY 7 Days Qty: 14 0RF prednisone 20 mg tablet 40 mg PO DAILY Qty: 10 0RF prednisone 20 mg tablet 60 mg PO DAILY Qty: 18 0RF prednisone 20 mg tablet 60 mg PO DAILY Qty: 18 0RF prednisone 50 mg tablet 50 mg PO DAILY Qty: 5 0RF Referrals / Follow Up: Rere Aguiar MD [Primary Care Provider] - Within 1 Week Disposition Disposition (needs filled in before D/C Order can be placed): Home, Self Care 11/29/23 1014 Wayne Friend MD CC: Dr. Rere Aguiar MD; Dr. Christiane Martin MD Signed Normal [facility] Hematocrit Auto (Bld) [Volum e fraction]Ordered By: Christiane Martin on 11-29-2023 Hematocrit (Bld) [Volume fraction] 38.5 % 40-54 [facility] Laboratory - Chemistry and C hemistry - challengeOrdered By: Christiane Martin on 11-29-2023 CO2 [Moles/Vol] 24.0 mmol/L 21.0-32.0 [facility] Urea nitrogen/Creatinine [Mass ratio] 23.8 mg/mg 10-20 [facility] Laboratory - Hematology and Cell countsOrdered By: Christiane Martin on 11-29-2023 Erythrocyte distribution width (RBC) [Entitic vol] 43.6 fL 35.1-43.9 [facility] Erythrocyte distribution width (RBC) [Ratio] 12.8 % 11.6-14.6 [facility] Immature granulocytes/100 WBC (Bld) 0.600 % 0.0-0.9 [facility] Comment on above: IG% - Immature Granu locytes (promyelocytes, myelocytes and metamyelocytes) > 1% indicates that a LEFT SHIFT is Present. MCH (RBC) [Entitic mass] 30.9 pg 27.0-32.0 [facility] Nucleated RBC/100 WBC (Bld) [Ratio] 0 % 0-5 [facility] MCHC Auto (RBC) [Mass/Vol]Or dered By: Christiane Martin on 11-29-2023 MCHC (RBC) [Mass/Vol] 33.5 g/dL 32-36 [facility] No Panel InformationOrdered By: Christiane Martin on 11-29-2023 Anti-Nuclear Antibody Screen Negative Negative [facility] Comment on above: Performed at: [facility] [address] [id number] Director: Brian Du PhD, Phone: [phone] [employer] B Antibody Not Reportable [facility] Estimated Creatinine Clearance Calc 96.79 ml/min [facility] Estimated GFR (MDRD) Amer 102 mL/min >60 [facility] Comment on above: GFR Calc Estimated GFR (MDRD) Non-Af Amer 84 mL/min >60 [facility] Comment on above: Non- GFR Calc POST ACUTE CARE REGISTERED NURSE Antibody Not Reportable [facility] Platelets bldOrdered By: Yamilex Martin on 11-29-2023 Platelets (Bld) [#/Vol] 428 10*3/uL 150-450 [facility] Serum DNA double strand anti body assay (units/volume)Ordered By: Christiane Martin on 11-29-2023 DNA double strand Ab Qn (S) Not Reportable [facility] Serum Denia-1 antibody assay (u nits/volume)Ordered By: Christiane Martin on 11-29-2023 Denia-1 extractable nuclear Ab Qn (S) Not Reportable [facility] Serum Scl-70 antibody assay (units/volume)Ordered By: Christiane Martin on 11-29-2023 SCL-70 extractable nuclear Ab Qn (S) Not Reportable [facility] Serum Baum antibody detecti onOrdered By: Christiane Martin on 11-29-2023 Baum extractable nuclear Ab Ql (S) Not Reportable [facility] Serum or plasma calcium neno urement (mass/volume)Ordered By: Christiane Martin on 11-29-2023 Calcium [Mass/Vol] 9.1 mg/dL 8.5-10.1 [facility] Serum or plasma creatinine m easurement (mass/volume)Ordered By: Christiane Martin on 11-29-2023 Creatinine [Mass/Vol] 0.97 mg/dL 0.70-1.30 [facility] Comment on above: The validity of the calculated GFR & GFRAA in patients over 70 years has not been determined. Clinical correlation is essential. Serum or plasma urea nitroge n measurement (mass/volume)Ordered By: Christiane Martin on 11-29-2023 Urea nitrogen [Mass/Vol] 23 mg/dL 7-18 [facility] Thin prep Papanicolaou smear with manual screeningOrdered By: Christiane Martin on 11-29-2023 Thin prep Papanicolaou smear with manual screening 3 5-15 [facility] Basic Metabolic Profile (BMP )on 11-28-2023 BUN/CRE 19.4 RATIO Normal 10-20 [facility] Comment on above: Performed By: #### L 500.2500, L100.0100 ####[facility] [address] [place], [address] CA,Total 8.8 mg/dL Normal 8.5-10.1 [facility] Comment on above: Performed By: #### L 500.2500, L100.0100 ####[facility] [address] [place], [address] Chloride [Moles/Vol] 109 mmol/L High 98-107 [facility] Comment on above: Performed By: #### L 500.2500, L100.0100 ####[facility] [address] [place], [address] CO2 [Moles/Vol] 24.0 mmol/L Normal 21.0-32.0 [facility] Comment on above: Performed By: #### L 500.2500, L100.0100 ####[facility] [address] [place], [address] Creatinine [Mass/Vol] 1.03 mg/dL Normal 0.70-1.30 [facility] Comment on above: Result Comment: The validity of the calculated GFR GFRAA in patients over 70 years has not been determined. Clinical correlation is essential. Performed By: #### L 500.2500, L100.0100 ####[facility] [address] [place], [address] ECRCL 91.15 ml/min Normal [facility] Comment on above: Performed By: #### L 500.2500, L100.0100 ####[facility] [address] [place], [address] EST GFR - AA 95 mL/min Normal >60 [facility] Comment on above: Result Comment: Afri can Surinamese GFR Calc Performed By: #### L 500.2500, L100.0100 ####[facility] [address] [place], [address] GAP 4 Low 5-15 [facility] Comment on above: Performed By: #### L 500.2500, L100.0100 ####[facility] [address] [place], [address] GFR/1.73 sq M.predicted among non-blacks MDRD (S/P/Bld) [Vol rate/Area] 78 mL/min/{1.73_m2} Normal >60 [facility] Comment on above: Result Comment: Non- GFR Calc Performed By: #### L 500.2500, L100.0100 ####[facility] [address] [place], [address] Glucose [Mass/Vol] 83 mg/dL Normal 74-106 [facility] Comment on above: Performed By: #### L 500.2500, L100.0100 ####[facility] [address] [place], [address] Potassium [Moles/Vol] 4.2 mmol/L Normal 3.5-5.1 [facility] Comment on above: Performed By: #### L 500.2500, L100.0100 ####[facility] [address] [place], [address] Sodium [Moles/Vol] 137 mmol/L Normal 136-145 [facility] Comment on above: Performed By: #### L 500.2500, L100.0100 ####[facility] [address] [place], [address] Urea nitrogen [Mass/Vol] 20 mg/dL High 7-18 [facility] Comment on above: Performed By: #### L 500.2500, L100.0100 ####[facility] [address] [place], [address] CBC W/Diff, Automatedon 12-3 -2022 Absolute Lymph 1.98 X10 3/uL Normal 0.83-4.51 [facility] Comment on above: Performed By: #### L 500.2500, L100.0100 ####[facility] [address] [place], [address] Absolute Neut 6.2 X10 3/uL Normal 2.0-7.7 [facility] Comment on above: Performed By: #### L 500.2500, L100.0100 ####[facility] [address] [place], [address] Basophils/100 WBC (Bld) 0.6 % Normal 0-1 [facility] Comment on above: Performed By: #### L 500.2500, L100.0100 ####[facility] [address] [place], [address] Eosinophils/100 WBC (Bld) 1.7 % Normal 0-5 [facility] Comment on above: Performed By: #### L 500.2500, L100.0100 ####[facility] [address] [place], [address] Erythrocyte distribution width (RBC) [Ratio] 12.7 % Normal 11.6-14.6 [facility] Comment on above: Performed By: #### L 500.2500, L100.0100 ####[facility] [address] [place], [address] Hematocrit (Bld) [Volume fraction] 39.7 % Low 40-54 [facility] Comment on above: Performed By: #### L 500.2500, L100.0100 ####[facility] [address] [place], [address] Hemoglobin (Bld) [Mass/Vol] 12.7 g/dL Low 13.0-16.5 [facility] Comment on above: Performed By: #### L 500.2500, L100.0100 ####[facility] [address] [place], [address] IG% 0.500 Normal 0.0-0.9 [facility] Comment on above: Result Comment: IG% - Immature Granulocytes (promyelocytes, myelocytes and metamyelocytes) > 1% indicates that a LEFT SHIFT is Present. Performed By: #### L 500.2500, L100.0100 ####[facility] [address] [place], [address] Lymphocytes/100 WBC (Bld) 21.3 % Normal 19-41 [facility] Comment on above: Performed By: #### L 500.2500, L100.0100 ####[facility] [address] [place], [address] MCH (RBC) [Entitic mass] 30.3 pg Normal 27.0-32.0 [facility] Comment on above: Performed By: #### L 500.2500, L100.0100 ####[facility] [address] [place], [address] MCHC (RBC) [Mass/Vol] 32.0 g/dL Normal 32-36 [facility] Comment on above: Performed By: #### L 500.2500, L100.0100 ####[facility] [address] [place], [address] MCV (RBC) [Entitic vol] 94.7 fL High 80-94 [facility] Comment on above: Performed By: #### L 500.2500, L100.0100 ####[facility] [address] [place], [address] Monocytes/100 WBC (Bld) 9.4 % Normal 0-10 [facility] Comment on above: Performed By: #### L 500.2500, L100.0100 ####[facility] [address] [place], [address] Neutrophils/100 WBC (Bld) 66.5 % Normal 47-70 [facility] Comment on above: Performed By: #### L 500.2500, L100.0100 ####[facility] [address] [place], [address] Nucleated RBC (Bld) [#/Vol] 0 10*3/uL Normal 0-5 [facility] Comment on above: Performed By: #### L 500.2500, L100.0100 ####[facility] [address] [place], [address] Platelet mean volume (Bld) [Entitic vol] 9.4 fL Normal 6.2-12.0 [facility] Comment on above: Performed By: #### L 500.2500, L100.0100 ####[facility] [address] [place], [address] Platelets (Bld) [#/Vol] 382 10*3/uL Normal 150-450 [facility] Comment on above: Performed By: #### L 500.2500, L100.0100 ####[facility] [address] [place], [address] RBC (Bld) [#/Vol] 4.19 10*6/uL Low 4.6-6.[address] [facility] Comment on above: Performed By: #### L 500.2500, L100.0100 ####[facility] [address] [place], [address] RDW SD 44.1 fl High 35.1-43.9 [facility] Comment on above: Performed By: #### L 500.2500, L100.0100 ####[facility] [address] [place], [address] WBC (Bld) [#/Vol] 9.3 10*3/uL Normal 4.4-11.0 [facility] Comment on above: Performed By: #### L 500.2500, L100.0100 ####[facility] [address] [place], [address] CRPon 11-28-2023 C-REACTIVE PROT 76.90 mg/L High 0.0-3.0 [facility] Comment on above: Result Comment: C-Re active Protein (CRP) provides useful information for the diagnosis, therapy and monitoring of inflammatory processes and associated diseases. For the evaluation of Relative Risk for Cardiovascular Disease, a High Sensitivity CRP (HSCRP) should be ordered. Performed By: #### L 101.9900, L3100.5450, L501.6710 ####[facility] [address] [place], [address] Erythrocyte Sed Rateon 11-28 SED RATE 113 mm/hr High 0-20 [facility] Comment on above: Performed By: #### L 101.9900, L3100.5450, L501.6710 ####[facility] [address] [place], [address] Erythrocyte sedimentation ra teOrdered By: Christiane Martin on 11-28-2023 ESR (Bld) [Velocity] 113 mm/h 0-20 [facility] Serum or plasma C reactive p rotein measurement (mass/volume)Ordered By: Christiane Martin on 11-28-2023 CRP [Mass/Vol] 76.90 mg/L 0.0-3.0 [facility] Comment on above: C-Reactive Protein ( CRP) provides useful information for thediagnosis, therapy and monitoring of inflammatory processesand associated diseases. For the evaluation of Relative Riskfor Cardiovascular Disease, a High Sensitivity CRP (HSCRP)should be ordered. Basic Metabolic Profile (BMP )on 11-27-2023 BUN/CRE 23.2 RATIO High 10- [facility] Comment on above: Performed By: #### L 100.0100, L500.2500 ####[facility] [address] [place], [address] CA,Total 8.4 mg/dL Low 8.5-10.1 [facility] Comment on above: Performed By: #### L 100.0100, L500.2500 ####[facility] [address] [place], [address] Chloride [Moles/Vol] 108 mmol/L High 98-107 [facility] Comment on above: Performed By: #### L 100.0100, L500.2500 ####[facility] [address] [place], [address] CO2 [Moles/Vol] 29.0 mmol/L Normal 21.0-32.0 [facility] Comment on above: Performed By: #### L 100.0100, L500.2500 ####[facility] [address] [place], [address] Creatinine [Mass/Vol] 1.12 mg/dL Normal 0.70-1.30 [facility] Comment on above: Result Comment: The validity of the calculated GFR GFRAA in patients over 70 years has not been determined. Clinical correlation is essential. Performed By: #### L 100.0100, L500.2500 ####[facility] [address] [place], [address] ECRCL 83.83 ml/min Normal [facility] Comment on above: Performed By: #### L 100.0100, L500.2500 ####[facility] [address] [place], [address] EST GFR - AA 86 mL/min Normal >60 [facility] Comment on above: Result Comment: Afri can [place] GFR Calc Performed By: #### L 100.0100, L500.2500 ####[facility] [address] [place], [address] GAP 0 Low 5-15 [facility] Comment on above: Performed By: #### L 100.0100, L500.2500 ####[facility] [address] [place], [address] GFR/1.73 sq M.predicted among non-blacks MDRD (S/P/Bld) [Vol rate/Area] 71 mL/min/{1.73_m2} Normal >60 [facility] Comment on above: Result Comment: Non- GFR Calc Performed By: #### L 100.0100, L500.2500 ####[facility] [address] [place], [address] Glucose [Mass/Vol] 87 mg/dL Normal 74-106 [facility] Comment on above: Performed By: #### L 100.0100, L500.2500 ####[facility] [address] [place], [address] Potassium [Moles/Vol] 4.5 mmol/L Normal 3.5-5.1 [facility] Comment on above: Performed By: #### L 100.0100, L500.2500 ####[facility] [address] [place], [address] Sodium [Moles/Vol] 137 mmol/L Normal 136-145 [facility] Comment on above: Performed By: #### L 100.0100, L500.2500 ####[facility] [address] [place], [address] Urea nitrogen [Mass/Vol] 26 mg/dL High 7-18 [facility] Comment on above: Performed By: #### L 100.0100, L500.2500 ####[facility] [address] [place], [address] CBC W/Diff, Automatedon 12-3 0-2022 Absolute Lymph 1.67 X10 3/uL Normal 0.83-4.51 [facility] Comment on above: Performed By: #### L 100.0100, L500.2500 ####[facility] [address] [place], [address] Absolute Neut 5.4 X10 3/uL Normal 2.0-7.7 [facility] Comment on above: Performed By: #### L 100.0100, L500.2500 ####[facility] [address] [place], [address] Basophils/100 WBC (Bld) 0.5 % Normal 0-1 [facility] Comment on above: Performed By: #### L 100.0100, L500.2500 ####[facility] [address] [place], [address] Eosinophils/100 WBC (Bld) 2.0 % Normal 0-5 [facility] Comment on above: Performed By: #### L 100.0100, L500.2500 ####[facility] [address] [place], [address] Erythrocyte distribution width (RBC) [Ratio] 12.9 % Normal 11.6-14.6 [facility] Comment on above: Performed By: #### L 100.0100, L500.2500 ####[facility] [address] [place], [address] Hematocrit (Bld) [Volume fraction] 38.6 % Low 40-54 [facility] Comment on above: Performed By: #### L 100.0100, L500.2500 ####[facility] [address] [place], [address] Hemoglobin (Bld) [Mass/Vol] 12.1 g/dL Low 13.0-16.5 [facility] Comment on above: Performed By: #### L 100.0100, L500.2500 ####[facility] [address] [place], [address] IG% 0.500 Normal 0.0-0.9 [facility] Comment on above: Result Comment: IG% - Immature Granulocytes (promyelocytes, myelocytes and metamyelocytes) > 1% indicates that a LEFT SHIFT is Present. Performed By: #### L 100.0100, L500.2500 ####[facility] [address] [place], [address] Lymphocytes/100 WBC (Bld) 20.5 % Normal 19-41 [facility] Comment on above: Performed By: #### L 100.0100, L500.2500 ####[facility] [address] [place], [address] MCH (RBC) [Entitic mass] 29.9 pg Normal 27.0-32.0 [facility] Comment on above: Performed By: #### L 100.0100, L500.2500 ####[facility] [address] [place], [address] MCHC (RBC) [Mass/Vol] 31.3 g/dL Low 32-36 [facility] Comment on above: Performed By: #### L 100.0100, L500.2500 ####[facility] [address] [place], [address] MCV (RBC) [Entitic vol] 95.3 fL High 80-94 [facility] Comment on above: Performed By: #### L 100.0100, L500.2500 ####[facility] [address] [place], [address] Monocytes/100 WBC (Bld) 10.6 % High 0-10 [facility] Comment on above: Performed By: #### L 100.0100, L500.2500 ####[facility] [address] [place], [address] Neutrophils/100 WBC (Bld) 65.9 % Normal 47-70 [facility] Comment on above: Performed By: #### L 100.0100, L500.2500 ####[facility] [address] [place], [address] Nucleated RBC (Bld) [#/Vol] 0 10*3/uL Normal 0-5 [facility] Comment on above: Performed By: #### L 100.0100, L500.2500 ####[facility] [address] [place], [address] Platelet mean volume (Bld) [Entitic vol] 9.8 fL Normal 6.2-12.0 [facility] Comment on above: Performed By: #### L 100.0100, L500.2500 ####[facility] [address] [place], [address] Platelets (Bld) [#/Vol] 339 10*3/uL Normal 150-450 [facility] Comment on above: Performed By: #### L 100.0100, L500.2500 ####[facility] [address] [place], [address] RBC (Bld) [#/Vol] 4.05 10*6/uL Low 4.6-6.[address] [facility] Comment on above: Performed By: #### L 100.0100, L500.2500 ####[facility] [address] [place], [address] RDW SD 45.3 fl High 35.1-43.9 [facility] Comment on above: Performed By: #### L 100.0100, L500.2500 ####[facility] [address] [place], [address] WBC (Bld) [#/Vol] 8.1 10*3/uL Normal 4.4-11.0 [facility] Comment on above: Performed By: #### L 100.0100, L500.2500 ####[facility] [address] [place], [address] Absolute lymphocyte countOrd ered By: Rei German on 11-26-2023 Lymphocytes Auto (Unsp spec) [#/Vol] 2.00 10*3/uL 0.83-4.51 [facility] Basophil percentageOrdered B y: Rei German on 11-26-2023 Basophil percentage 0-5 SEEN /hpf 0-5 [facility] Basophils/100 WBC (Bld) 0.4 % 0-1 [facility] Bilirubin [Mass/Vol] 0.70 mg/dL 0.20-1.00 [facility] Comment on above: For patients on eltr ombopag therapy, use of Dimension [place] TBIL is not recommended. Chloride [Moles/Vol] 104 mmol/L 98-107 [facility] Eosinophils/100 WBC (Bld) 0.5 % 0-5 [facility] Glucose [Mass/Vol] 116 mg/dL 74-106 [facility] Comment on above: Fasting Glucose resu lt from 100 to 125 mg/dL suggests IMPAIRED HOMEOSTASIS per A.D.A. criteria. Neutrophils (Bld) [#/Vol] 6.8 10*3/uL 2.0-7.7 [facility] Neutrophils/100 WBC (Bld) 67.6 % 47-70 [facility] Potassium [Moles/Vol] 3.8 mmol/L 3.5-5.1 [facility] Protein [Mass/Vol] 9.2 g/dL 6.4-8.2 [facility] Sodium [Moles/Vol] 136 mmol/L 136-145 [facility] WBC (Bld) [#/Vol] 10.1 10*3/uL 4.4-11.[address] [facility] Bilirubin Test strip Ql (U)O rdered By: Rei German on 11-26-2023 Bilirubin Ql (U) Negative Negative [facility] Blood erythrocytes count (nu mber/volume)Ordered By: Rei German on 11-26-2023 RBC (Bld) [#/Vol] 5.13 10*6/uL 4.6-6.[address] [facility] Blood hemoglobin measurement (mass/volume)Ordered By: Rei German on 11-26-2023 Hemoglobin (Bld) [Mass/Vol] 16.0 g/dL 13.0-16.5 [facility] Blood lymphocytes/100 leukoc ytesOrdered By: Rei German on 11-26-2023 Lymphocytes/100 WBC (Bld) 19.9 % 19-41 [facility] Blood monocytes/100 leukocyt esOrdered By: Rei German on 11-26-2023 Monocytes/100 WBC (Bld) 10.4 % 0-10 [facility] Blood platelet mean volumeOr dered By: Rei German on 11-26-2023 Platelet mean volume (Bld) [Entitic vol] 10.2 fL 6.2-12.0 [facility] CBC W/Diff, Automatedon 10-30 Absolute Lymph 2.00 X10 3/uL Normal 0.83-4.51 [facility] Comment on above: Performed By: #### L 100.0100 ####[facility] [address] [place], [place], [id number] Absolute Neut 6.8 X10 3/uL Normal 2.0-7.7 [facility] Comment on above: Performed By: #### L 100.0100 ####[facility] [address] [place], [address] Basophils/100 WBC (Bld) 0.4 % Normal 0-1 [facility] Comment on above: Performed By: #### L 100.0100 ####[facility] [address] [place], [address] Eosinophils/100 WBC (Bld) 0.5 % Normal 0-5 [facility] Comment on above: Performed By: #### L 100.0100 ####[facility] [address] [place], [address] Erythrocyte distribution width (RBC) [Ratio] 12.9 % Normal 11.6-14.6 [facility] Comment on above: Performed By: #### L 100.0100 ####[facility] [address] [place], [address] Hematocrit (Bld) [Volume fraction] 47.9 % Normal 40-54 [facility] Comment on above: Performed By: #### L 100.0100 ####[facility] [address] [place], [address] Hemoglobin (Bld) [Mass/Vol] 16.0 g/dL Normal 13.0-16.5 [facility] Comment on above: Performed By: #### L 100.0100 ####[facility] [address] [place], [address] IG% 1.200 High 0.0-0.9 [facility] Comment on above: Result Comment: IG% - Immature Granulocytes (promyelocytes, myelocytes and metamyelocytes) > 1% indicates that a LEFT SHIFT is Present. Performed By: #### L 100.0100 ####[facility] [address] [place], [address] Lymphocytes/100 WBC (Bld) 19.9 % Normal 19-41 [facility] Comment on above: Performed By: #### L 100.0100 ####[facility] [address] [place], [address] MCH (RBC) [Entitic mass] 31.2 pg Normal 27.0-32.0 [facility] Comment on above: Performed By: #### L 100.0100 ####[facility] [address] [place], [address] MCHC (RBC) [Mass/Vol] 33.4 g/dL Normal 32-36 [facility] Comment on above: Performed By: #### L 100.0100 ####[facility] [address] [place], [address] MCV (RBC) [Entitic vol] 93.4 fL Normal 80-94 [facility] Comment on above: Performed By: #### L 100.0100 ####[facility] [address] [place], [address] Monocytes/100 WBC (Bld) 10.4 % High 0-10 [facility] Comment on above: Performed By: #### L 100.0100 ####[facility] [address] [place], [address] Neutrophils/100 WBC (Bld) 67.6 % Normal 47-70 [facility] Comment on above: Performed By: #### L 100.0100 ####[facility] [address] [place], [address] Nucleated RBC (Bld) [#/Vol] 0 10*3/uL Normal 0-5 [facility] Comment on above: Performed By: #### L 100.0100 ####[facility] [address] [place], [address] Platelet mean volume (Bld) [Entitic vol] 10.2 fL Normal 6.2-12.0 [facility] Comment on above: Performed By: #### L 100.0100 ####[facility] [address] [place], [address] Platelets (Bld) [#/Vol] 432 10*3/uL Normal 150-450 [facility] Comment on above: Performed By: #### L 100.0100 ####[facility] [address] [place], [address] RBC (Bld) [#/Vol] 5.13 10*6/uL Normal 4.6-6.[address] [facility] Comment on above: Performed By: #### L 100.0100 ####[facility] [address] [place], [address] RDW SD 44.3 fl High 35.1-43.9 [facility] Comment on above: Performed By: #### L 100.0100 ####[facility] [address] [place], [address] WBC (Bld) [#/Vol] 10.1 10*3/uL Normal 4.4-11.[address] [facility] Comment on above: Performed By: #### L 100.0100 ####[facility] [address] [place], [address] CPK Total, Creatine Kinaseon 11-26-2023 CPK TOTAL 126 U/L Normal 39-308 [facility] Comment on above: Performed By: #### L 500.4050, L501.3620 #### [facility] [address] [place], [address] Comprehensive Metabolic Prof ilon 11-26-2023 Albumin [Mass/Vol] 3.1 g/dL Low 3.2-5.0 [facility] Comment on above: Performed By: #### L 500.4050, L501.3620 #### [facility] [address] [place], [address] Albumin/Globulin [Mass ratio] 0.5 {ratio} Low 0.9-2.4 [facility] Comment on above: Performed By: #### L 500.4050, L501.3620 #### [facility] [address] [place], [address] ALK P 103 U/L Normal 45-117 [facility] Comment on above: Performed By: #### L 500.4050, L501.3620 #### [facility] [address] [place], [address] ALT [Catalytic activity/Vol] 24 U/L Normal 16-61 [facility] Comment on above: Performed By: #### L 500.4050, L501.3620 #### [facility] [address] [place], [address] AST [Catalytic activity/Vol] 22 U/L Normal 15-37 [facility] Comment on above: Performed By: #### L 500.4050, L501.3620 #### [facility] [address] [place], [address] Bilirubin [Mass/Vol] 0.70 mg/dL Normal 0.20-1.00 [facility] Comment on above: Result Comment: For patients on eltrombopag therapy, use of Dimension [place] TBIL is not recommended. Performed By: #### L 500.4050, L501.3620 #### [facility] [address] [place], [address] BUN/CRE 17.5 RATIO Normal 10-20 [facility] Comment on above: Performed By: #### L 500.4050, L501.3620 #### [facility] [address] [place], [address] CA,Total 9.7 mg/dL Normal 8.5-10.1 [facility] Comment on above: Performed By: #### L 500.4050, L501.3620 #### [facility] [address] [place], [address] Chloride [Moles/Vol] 104 mmol/L Normal 98-107 [facility] Comment on above: Performed By: #### L 500.4050, L501.3620 #### [facility] [address] [place], [address] CO2 [Moles/Vol] 20.0 mmol/L Low 21.0-32.0 [facility] Comment on above: Performed By: #### L 500.4050, L501.3620 #### [facility] [address] [place], [address] Creatinine [Mass/Vol] 2.00 mg/dL High 0.70-1.30 [facility] Comment on above: Result Comment: The validity of the calculated GFR GFRAA in patients over 70 years has not been determined. Clinical correlation is essential. Performed By: #### L 500.4050, L501.3620 #### [facility] [address] [place], [address] ECRCL 46.94 ml/min Normal [facility] Comment on above: Performed By: #### L 500.4050, L501.3620 #### [facility] [address] [place], [address] EST GFR - AA 44 mL/min Low >60 [facility] Comment on above: Result Comment: Afri can [place]e GFR Calc Performed By: #### L 500.4050, L501.3620 #### [facility] [address] [place], [address] GAP 12 Normal 5-15 [facility] Comment on above: Performed By: #### L 500.4050, L501.3620 #### [facility] [address] [place], [address] GFR/1.73 sq M.predicted among non-blacks MDRD (S/P/Bld) [Vol rate/Area] 36 mL/min/{1.73_m2} Low >60 [facility] Comment on above: Result Comment: Non- GFR Calc Performed By: #### L 500.4050, L501.3620 #### [facility] [address] [place], [address] Globulin (S) [Mass/Vol] 6.1 g/dL High 2.2-4.2 [facility] Comment on above: Performed By: #### L 500.4050, L501.3620 #### [facility] [address] [place], [address] Glucose [Mass/Vol] 116 mg/dL High 74-106 [facility] Comment on above: Result Comment: Fast ing Glucose result from 100 to 125 mg/dL suggests IMPAIRED HOMEOSTASIS per A.D.A. criteria. Performed By: #### L 500.4050, L501.3620 #### [facility] [address] [place], [address] Potassium [Moles/Vol] 3.8 mmol/L Normal 3.5-5.1 [facility] Comment on above: Performed By: #### L 500.4050, L501.3620 #### [facility] [address] [place], [address] Sodium [Moles/Vol] 136 mmol/L Normal 136-145 [facility] Comment on above: Performed By: #### L 500.4050, L501.3620 #### [facility] [address] [place], [address] T PROT 9.2 g/dL High 6.4-8.2 [facility] Comment on above: Performed By: #### L 500.4050, L501.3620 #### [facility] [address] [place], [address] Urea nitrogen [Mass/Vol] 35 mg/dL High 7-18 [facility] Comment on above: Performed By: #### L 500.4050, L501.3620 #### [facility] [address] [place], [address] Determination of erythrocyte mean corpuscular volume (MCV)Ordered By: Rei German on 11-26-2023 MCV (RBC) [Entitic vol] 93.4 fL 80-94 [facility] Emergency Department Summary on 11-26-2023 Emergency Department Summary [facility] Medical Records Department [address] [place] [address] Emergency Department Summary 11/26/23 MR#: [id number] Acct: [id number] Name: XIANG WEST Rep #: [id number] : 1965 58 From: Rei German DO PCP: Dr. Rere Aguiar MD Status:REG ER Location: ED ADDENDUM by Dr. Antonio Jarvis MD on 11/26/23 at 1143 Patient was seen by shelter case manager. They contacted hospitalist. I then discussed case with the hospitalist. Patient will be brought in due to his generalized weakness, acute kidney injury, and inability to ambulate. 11/26/23 1143 Cosigner Signature (if applicable): cc: Dr. Rere Aguiar MD * Signed HPI History of Present Illness Chief Complaint: Weakness Narrative Narrative: 58-year-old male presenting with weakness. He states it is all secondary to bilateral knee pain. He denies any trauma. He states he has a history of gout but does not believe he is having a gout flare in his either of his legs. He states that his knees. He states is been ongoing for 4 days and his pain is so severe he is been unable to walk. He states that he is only urinated twice in 4 days and is only had 1 bowel movement. He states he has been surviving off of canned peaches at the bedside. He states that when he had to get up and use the restroom he crawled on his painful knees to the bathroom. Patient is annoyed at both nursing and myself asking him questions about how he ate and drank while he laid in bed for 4 days. I explained to them that I have to ask questions in order to get the right workup. He states he does not understand why everybody is asking him so many questions. I explained to him that he says he has been in bed for 4-day does not had not had a drink but has been living off canned peaches. It is also concerning if he only made and voided twice in the last couple of days so we are trying to get his input and output. He then asked for a glass of water. Patient states at that point that he was able to ambulate to the EMS cot and get over the pain for short time. Patient states he has no other medical problems other than gout. [facility] Medical History Cataract Gout Home Medications prednisone 20 mg tablet 40 mg (2 x 20 mg) PO DAILY 10 days #20 tabs 04/21/23 [Rx Last Taken Unknown] hydrocodone-acetaminop hen 5-325mg 5mg-325mg 1 tab PO Q4H PRN PRN Pain 2 days #4 TABLETS 04/28/23 [Rx Last Taken Unknown] meloxicam 7.5 mg tablet 7.5 mg PO DAILY #20 tabs 04/28/23 [Rx Last Taken Unknown] prednisone 20 mg tablet 40 mg (2 x 20 mg) PO DAILY 7 days #14 tabs 05/06/23 [Rx Last Taken Unknown] prednisone 20 mg tablet 40 mg (2 x 20 mg) PO DAILY #10 tabs 05/15/23 [Rx Last Taken Unknown] prednisone 20 mg tablet 60 mg (3 x 20 mg) PO DAILY #18 TABLETS 06/08/23 [Rx Last Taken Unknown] prednisone 50 mg tablet 50 mg PO DAILY #5 tabs 07/29/23 [Rx Last Taken Unknown] prednisone 20 mg tablet 60 mg (3 x 20 mg) PO DAILY #18 TABLETS 08/03/23 [Rx Last Taken Unknown] Allergy/AdvReac Type Severity Reaction Status Date / Time No Known Allergies Allergy Verified 11/26/23 05:45 Family History Mother Cancer Surgical History H/O eye surgery Social History household members: other Smoking Status: Never smoker substance use type: does not use ROS ROS ED Constitutional Constitutional ED: Denies chills, fever(s) or sweats Eyes Eyes: Denies change in vision ENT ENT ED: Denies dysphagia or sore throat Cardiovascular Cardiovascular: Denies chest pain, leg edema, palpitations or racing heartbeat Respiratory/Chest Respiratory/Chest: Denies cough, dyspnea or dyspnea on exertion Gastrointestinal Gastrointestinal: Denies abdominal pain, diarrhea, nausea or vomiting Genitourinary Genitourinary ED: Denies dysuria, hematuria or urinary frequency Musculoskeletal Musculoskeletal: Reports other Details: Bilateral knee pain ; Denies back pain or neck pain Integumentary Reports other Details: Superficial abrasion to the proximal right calf ; Denies rash or wounds Neurologic Neurologic: Denies headache(s), paresthesias or weakness Psychiatric Psychiatric: Denies anxiety or depression EXAM Physical Exam Const Vital Signs: 11/26/23 05:45 11/26/23 05:48 11/26/23 05:48 Temperature 99.7 F H Temperature Source Temporal Pulse Rate 123 H Respiratory Rate 16 Respiratory Effort Normal Respiratory Pattern Normal Blood Pressure 187/140 H 179/113 H Blood Pressure Mean 155 135 Pulse Ox 98 Positive well nourished and well developed General Appearance ED: well developed and NAD HEENT Reports (more content not included)... Normal [facility] Hematocrit Auto (Bld) [Volum e fraction]Ordered By: Rei German on 11-26-2023 Hematocrit (Bld) [Volume fraction] 47.9 % 40-54 [facility] Ketones Test strip Ql (U)Ord ered By: Rei German on 11-26-2023 Ketones Ql (U) 15 mg/dl Negative [facility] Knee 1 or 2 Viewson 11-26-20 23 Knee 1 or 2 Views [facility] Imaging Services [address] [place] [address] Knee 1 or 2 Views MR#: [id number] Acct: [id number] Name: XIANG WEST Rep #: [id number] : 1965 M 58 From: Ezio High PCP: Dr. Rere Aguiar MD Status: REG ER Study: Knee 1 or 2 Views Date of Exam: 11/26/23 Exam# [id number] Ordering Dr: Rei German DO [id number] INDICATION: pain EXAMINATION/TECHNIQUE: X-RAY - LEFT XR Knee 1 or 2 Views 2 VIEWS COMPARISON: No relevant prior comparison study available FINDINGS: SOFT TISSUES: No soft tissue swelling or gas. No radiopaque foreign body. BONES/JOINTS: No acute fracture or subluxation.. Normal alignment. Mild narrowing of the lateral joint compartment. Small effusion in the suprapatellar joint space. No sclerotic or destructive changes observed. RAD/Knee 1 or 2 Views IMPRESSION: No evidence of acute osseous changes. Small joint effusion. Electronically Signed: Ezio Pickard MD at 8:51 EST , CC: Dr. Rere Aguiar MD; Dr. Rei German DO Weekend Anchor: Signed Normal [facility] Knee 1 or 2 Views [facility] Imaging Services [address] [place] [address] Knee 1 or 2 Views MR#: [id number] Acct: [id number] Name: XIANG WEST Rep #: [id number] : 1965 M 58 From: Ezio High PCP: Dr. Rere Aguiar MD Status: [facility] ER Study: Knee 1 or 2 Views Date of Exam: 11/26/23 Exam# [id number] Ordering Dr: Rei German DO [id number] INDICATION: pain EXAMINATION/TECHNIQUE: X-RAY - RIGHT XR Knee 1 or 2 Views 2 VIEWS COMPARISON: Prior study dated: 11/20/2018. FINDINGS: SOFT TISSUES: No soft tissue swelling or gas. No radiopaque foreign body. BONES/JOINTS: No acute fracture or subluxation.. Normal alignment. Mild narrowing of the lateral joint compartment. Trace of joint effusion. No sclerotic or destructive changes observed. RAD/Knee 1 or 2 Views IMPRESSION: No evidence of acute fracture. Electronically Signed: Ezio Pickard MD at 8:38 EST , CC: Dr. Rere Aguiar MD; Dr. Rei German DO Weekend Anchor: Signed Normal [facility] Laboratory - Chemistry and C hemistry - challengeOrdered By: Rei German on 11-26-2023 ALP [Catalytic activity/Vol] 103 U/L 45-117 [facility] ALT [Catalytic activity/Vol] 24 U/L 16-61 [facility] CK [Catalytic activity/Vol] 126 U/L 39-308 [facility] CO2 [Moles/Vol] 20.0 mmol/L 21.0-32.0 [facility] Globulin (S) [Mass/Vol] 6.1 g/dL 2.2-4.2 [facility] Urea nitrogen/Creatinine [Mass ratio] 17.5 mg/mg 10-20 [facility] - Hematology and Cell countsOrdered By: Rei German on 11-26-2023 Erythrocyte distribution width (RBC) [Entitic vol] 44.3 fL 35.1-43.9 [facility] Erythrocyte distribution width (RBC) [Ratio] 12.9 % 11.6-14.6 [facility] Immature granulocytes/100 WBC (Bld) 1.200 % 0.0-0.9 [facility] Comment on above: IG% - Immature Granu locytes (promyelocytes, myelocytes and metamyelocytes) > 1% indicates that a LEFT SHIFT is Present. MCH (RBC) [Entitic mass] 31.2 pg 27.0-32.0 [facility] Nucleated RBC/100 WBC (Bld) [Ratio] 0 % 0-5 [facility] MCHC Auto (RBC) [Mass/Vol]Or dered By: Rei German on 11-26-2023 MCHC (RBC) [Mass/Vol] 33.4 g/dL 32-36 [facility] Mucus LM Ql (Urine sed)Order ed By: Rei German on 11-26-2023 Mucus Ql (Urine sed) 0 SEEN /hpf [facility] Nitrite Test strip Ql (U)Ord ered By: Rei German on 11-26-2023 Nitrite Ql (U) Negative Negative [facility] No Panel InformationOrdered By: Rei German on 11-26-2023 Estimated Creatinine Clearance Calc 46.94 ml/min [facility] Estimated GFR (MDRD) Amer 44 mL/min >60 [facility] Comment on above: GFR Calc Estimated GFR (MDRD) Non-Af Amer 36 mL/min >60 [facility] Comment on above: Non- GFR Calc Platelets bldOrdered By: Miek German on 11-26-2023 Platelets (Bld) [#/Vol] 432 10*3/uL 150-450 [facility] Protein Test strip Ql (U)Ord ered By: Rei German on 11-26-2023 Protein Ql (U) 30 mg/dl Negative [facility] Serum or plasma albumin neno urement (mass/volume)Ordered By: Rei German on 11-26-2023 Albumin [Mass/Vol] 3.1 g/dL 3.2-5.0 [facility] Serum or plasma albumin/glob ulin mass ratioOrdered By: Rei German on 11-26-2023 Albumin/Globulin [Mass ratio] 0.5 {ratio} 0.9-2.4 [facility] Serum or plasma calcium neno urement (mass/volume)Ordered By: Rei German on 11-26-2023 Calcium [Mass/Vol] 9.7 mg/dL 8.5-10.1 [facility] Serum or plasma creatinine m easurement (mass/volume)Ordered By: Rei German on 11-26-2023 Creatinine [Mass/Vol] 2.00 mg/dL 0.70-1.30 [facility] Comment on above: The validity of the calculated GFR & GFRAA in patients over 70 years has not been determined. Clinical correlation is essential. Serum or plasma urea nitroge n measurement (mass/volume)Ordered By: Rei German on 11-26-2023 Urea nitrogen [Mass/Vol] 35 mg/dL 7-18 [facility] Squamous epithelial cells de tection in urine sediment by light microscopyOrdered By: Rei German on 11-26-2023 Epithelial cells.squamous LM Ql (Urine sed) 0-5 SEEN /hpf 0-5 [facility] Thin prep Papanicolaou smear with manual screeningOrdered By: Rei German on 11-26-2023 Thin prep Papanicolaou smear with manual screening 22 U/L 15- [facility] Thin prep Papanicolaou smear with manual screening 12 - [facility] Urinalysis, Completeon 11-26 EPI,SQUAMOUS 0-5 SEEN Normal 0-5 [facility] Comment on above: Order Comment: JIMY CTOR TO SPECIFY Performed By: #### L 500.4050, L501.3620 #### [facility] [address] [place], [address] RBC 0-5 SEEN Normal 0-5 [facility] Comment on above: Order Comment: JIMY CTOR TO SPECIFY Performed By: #### L 500.4050, L501.3620 #### [facility] [address] [place], [address] WBC 0-5 SEEN Normal 0-5 [facility] Comment on above: Order Comment: JIMY CTOR TO SPECIFY Performed By: #### L 500.4050, L501.3620 #### [facility] [address] [place], [address] BACTERIA 0 SEEN Normal None Seen [facility] Comment on above: Order Comment: JIMY CTOR TO SPECIFY Performed By: #### L 500.4050, L501.3620 #### [facility] [address] [place], [address] Mucus Ql (Urine sed) 0 SEEN Normal [facility] Comment on above: Order Comment: COLLE CTOR TO SPECIFY Performed By: #### L 500.4050, L501.3620 #### [facility] [address] [place], [address] Urine blood detectionOrdered By: Rei German on 11-26-2023 RBC Ql (U) 10 /ul Negative [facility] RBC Ql (U) 0-5 SEEN /hpf 0-5 [facility] Urine clarityOrdered By: Mike German on 11-26-2023 Clarity (U) Clear Clear [facility] Urine color determinationOrd ered By: Rei German on 11-26-2023 Color (U) Yellow Yellow [facility] Urine glucose detectionOrder ed By: Rei German on 11-26-2023 Glucose Ql (U) Normal mg/dl Normal [facility] Urine leukocyte esterase det ection by dipstickOrdered By: Rei German on 11-26-2023 Leukocyte esterase Test strip Ql (U) 25 /ul Negative [facility] Urine pHOrdered By: Rei boone on 11-26-2023 pH (U) 5.0 [pH] 5.0 - 8.0 [facility] Urine sediment bacteria coun t by microscopy (number/high power field)Ordered By: Rei German on 11-26-2023 Bacteria LM.HPF (Urine sed) [#/Area] 0 /[HPF] None Seen [facility] Urine specific gravity measu rementOrdered By: Rei German on 11-26-2023 Specific gravity (U) [Rel density] 1.025 1.002-1.030 [facility] Urobilinogen Auto test strip Ql (U)Ordered By: Rei German on 11-26-2023 Urobilinogen Ql (U) 4 mg/dl Normal [facility] Emergency Department Summary on 08-03-2023 Emergency Department Summary [facility] Medical Records Department [address] [place] [address] Emergency Department Summary 08/03/23 MR#: [id number] Acct: [id number] Name: BRETTXIANG Rep #: [id number] : 1965 58 From: Mayank Almaguer PCP: Dr. Rere Aguiar MD Status:DEP ER Location: ED HPI History of Present Illness Chief Complaint: Upper Extremity Injury Informant: patient Narrative Narrative: Presents with current nontraumatic swelling right middle finger. Last time few months ago. Has issues with left hand and knees in the past. He states he had a referral to [facility] however his car broke down and missed appointment. He is making another appointment. No fevers. No he has a ring on his right middle finger, he states has been there for 10 years. Denies paresthesias. Pain worse with movement improved with steroids in the past. Prior similar symptoms: Yes PFSH PFS Medical History Cataract Gout Home Medications prednisone 20 mg tablet 40 mg (2 x 20 mg) PO DAILY 10 days #20 tabs 04/21/23 [Rx Last Taken Unknown] hydrocodone-acetaminop hen 5-325mg 5mg-325mg 1 tab PO Q4H PRN PRN Pain 2 days #4 TABLETS 04/28/23 [Rx Last Taken Unknown] meloxicam 7.5 mg tablet 7.5 mg PO DAILY #20 tabs 04/28/23 [Rx Last Taken Unknown] prednisone 20 mg tablet 40 mg (2 x 20 mg) PO DAILY 7 days #14 tabs 05/06/23 [Rx Last Taken Unknown] prednisone 20 mg tablet 40 mg (2 x 20 mg) PO DAILY #10 tabs 05/15/23 [Rx Last Taken Unknown] prednisone 20 mg tablet 60 mg (3 x 20 mg) PO DAILY #18 TABLETS 06/08/23 [Rx Last Taken Unknown] prednisone 50 mg tablet 50 mg PO DAILY #5 tabs 07/29/23 [Rx Last Taken Unknown] prednisone 20 mg tablet 60 mg (3 x 20 mg) PO DAILY #18 TABLETS 08/03/23 [Rx Last Taken Unknown] Allergy/AdvReac Type Severity Reaction Status Date / Time No Known Allergies Allergy Verified 08/03/23 07:57 Family History Mother Cancer Surgical History H/O eye surgery Social History household members: other Smoking Status: Never smoker substance use type: does not use ROS ROS ED Constitutional Constitutional ED: Denies chills, fever(s) or sweats Eyes Eyes: Denies change in vision ENT ENT ED: Denies dysphagia or sore throat Cardiovascular Cardiovascular: Denies chest pain, leg edema, palpitations or racing heartbeat Respiratory/Chest Respiratory/Chest: Denies cough, dyspnea or dyspnea on exertion Gastrointestinal Gastrointestinal: Denies abdominal pain, diarrhea, nausea or vomiting Genitourinary Genitourinary ED: Denies dysuria, hematuria or urinary frequency Musculoskeletal Musculoskeletal: Reports extremity pain; Denies back pain or neck pain Integumentary Denies rash or wounds Neurologic Neurologic: Denies headache(s), paresthesias or weakness EXAM Physical Exam Const Vital Signs: 08/03/23 07:54 Temperature 97.3 F L Temperature Source Temporal Pulse Rate 122 H Respiratory Rate 18 Blood Pressure 142/96 H Blood Pressure Mean 111 Pulse Ox 100 Oxygen Delivery Method Room Air Positive well nourished and well developed General Appearance ED: well developed and NAD HEENT Reports moist mucous membranes normocephalic and atraumatic Eyes PERRL, EOMs intact bilaterally and conjunctivae normal General Eye ED: Yes normal appearance of both eyes Neck no lymphadenopathy and supple General: Negative for tenderness Chest Wall Chest: Negative for tenderness Resp normal respiratory effort and normal air movement Effort and Inspection: symmetric chest movement; Negative for respiratory distress Cardio regular rhythm and no murmurs Rate: tachycardic Peripheral Pulses: pulses 2+ throughout GI normal to inspection, nondistended, normoactive bowel sounds and non-tender Palpation: Negative for guarding or rebound tenderness present Back/Spine no CVA tenderness and no thoracic nor lumbar tenderness Extremity Extremity Narrative: Right upper extremity: Hand with swelling on the middle finger there is a ring on the proximal phalanx. Cap refills intact. Pain with movement the PIP joint. No fluctuance no drainage. General Extremety ED: Negative for edema or tenderness General Extremity: Negative for edema Neuro oriented x3 and no sensory deficits noted Sensorium / Orientation: awake and alert Skin no rashes or lesions noted and no wounds MDM MDM MDM Narrative Medical decision making narrative: Interventions / MDM: Differential diagnosis: Arthralgia Diagnosis considered but do not suspect: Septic joint, however chronic recurring symptoms. My EKG interpretation: N/A Imaging independently reviewed and interpreted by m (more content not included)... Normal [facility] Emergency Department Summary on 07-29-2023 Emergency Department Summary [facility] Medical Records Department [address] [place] [address] Emergency Department Summary 07/29/23 MR#: [id number] Acct: [id number] Name: XIANG WEST Rep #: [id number] : 1965 58 From: Miriam Bonds MD PCP: Dr. Rere Aguiar MD Status:DEP ER Location: ED I have personally performed a face to face assessment of the patient and have reviewed the PATRICIA Note. Patient seen and evaluated for left hand pain and swelling. This is a recurring problem for the patient. He notes increased swelling to the joints of his left hand, and specifically points out the PIP joint of his left fifth finger. No recent injury. Patient states that he is scheduled to see a lubricating specialist for possible autoimmune testing. Typically his symptoms improved with prednisone. Patient sitting upright in bed no acute distress. Left upper extremity examination feels mild tenderness to the left PIP joint. Mild edema is noted. Good cap refill and sensation. Slight decreased range of motion of the joint secondary to pain and swelling, but good range of motion is noted. Patient is had no injury I do not believe imaging studies are needed at this time. He will be given a burst of steroids and will follow-up with rheumatology as scheduled. HPI History of Present Illness Chief Complaint: Upper Extremity Injury Narrative Narrative: Patient is a 58-year-old male who presents to the ER often for gout, inflammation of his hands. Patient states of the last 2 days has been having some inflammation to his left fifth and fourth digit. Patient states that he has not been on prednisone for 2 months and has been doing better. Patient states that he thinks he needs prednisone, as well as a couple days off work. Patient denies any fever or chills. Patient states that overall he thinks this is moderate case of inflammation, he states its been worse in the past. He rates his pain at a 6 out of 10. [facility] Medical History Cataract Gout Home Medications prednisone 20 mg tablet 40 mg (2 x 20 mg) PO DAILY 10 days #20 tabs 04/21/23 [Rx Last Taken Unknown] hydrocodone-acetaminop hen 5-325mg 5mg-325mg 1 tab PO Q4H PRN PRN Pain 2 days #4 TABLETS 04/28/23 [Rx Last Taken Unknown] meloxicam 7.5 mg tablet 7.5 mg PO DAILY #20 tabs 04/28/23 [Rx Last Taken Unknown] prednisone 20 mg tablet 40 mg (2 x 20 mg) PO DAILY 7 days #14 tabs 05/06/23 [Rx Last Taken Unknown] prednisone 20 mg tablet 40 mg (2 x 20 mg) PO DAILY #10 tabs 05/15/23 [Rx Last Taken Unknown] prednisone 20 mg tablet 60 mg (3 x 20 mg) PO DAILY #18 TABLETS 06/08/23 [Rx Last Taken Unknown] prednisone 50 mg tablet 50 mg PO DAILY #5 tabs 07/29/23 [Rx Last Taken Unknown] Allergy/AdvReac Type Severity Reaction Status Date / Time No Known Allergies Allergy Verified 07/29/23 13:29 Family History Mother Cancer Surgical History H/O eye surgery Social History household members: other Smoking Status: Never smoker substance use type: does not use ROS ROS ED ROS Narrative Constitutional: Negative for fever, chills, weight loss, weakness Eyes: Negative for vision loss, vision change, double vision ENT: Negative for any sore throat, ear pain, congestion Cardiovascular: Negative for any chest pain, tightness, palpitations Respiratory: Negative for any cough, sputum production, hemoptysis, dyspnea, dyspnea on exertion, orthopnea Gastrointestinal: Negative for any abdominal pain, nausea, vomiting, diarrhea, constipation, blood in stool, blood in vomit : Negative for any urinary frequency, dysuria, retention, blood in urine Muscle skeletal: Negative for any muscle joint pain, stiffness, myalgias, arthralgias, neck pain, back pain. Positive for left fifth and fourth finger edema, pain Neurological: Negative for any headache, syncope, numbness or tingling, dizziness Skin: Negative for any rashes, lumps, itching, abrasions, lacerations Psychiatric: Negative for any depression, anxiety, stress, suicidal ideation, homicidal ideation Hematologic: Negative for any easy bruising, excessive bruising, easy bleeding Allergies: Negative for any eczema, hives, rash EXAM Physical Exam Narrative Exam Narrative: Vital signs reviewed. Patient appears well patient looks nontoxic. Extremities: Patient's left hand does show some edema, slight erythema around the PIP joints of the fifth and fourth digit. Patient has minimal pain on palpation. Patient is difficult to move the fingers secondary to the swelling. He denies any fever or chills. Patient's remainder of his hand shows no cellulitis, no evidence of deep tissue infection. Patient has +2 radial pulse. Neuro: Cranial nerves II th (more content not included)... Normal [facility] Emergency Department Summary on 06-08-2023 Emergency Department Summary [facility] Medical Records Department [address] [place] [address] Emergency Department Summary 06/08/23 MR#: [id number] Acct: [id number] Name: XIANG WEST Rep #: [id number] : 1965 58 From: Mayank Almaguer PCP: Dr. Rere Aguiar MD Status:PRE ER Location: ED HPI History of Present Illness Chief Complaint: Other, Pain/Inj Informant: patient Narrative Narrative: Increased swelling pain left digits 3 through 5 the last 2 days. History of similar states multiple times in the last 6 weeks last time 2 weeks ago seen in ED. Symptoms improved with prednisone. Denies fevers or chills. Previously had had pain in his lower extremities ankles and knees he states he seen rheumatology once however did not like the experience. Did not follow back up. He is trying to get in with [facility] rheumatology call last week and he will try again. No family history of rheumatoid arthritis. He does work both hands, denies any specific injuries. Prior similar symptoms: Yes [facility] Medical History Cataract Gout Home Medications prednisone 20 mg tablet 40 mg (2 x 20 mg) PO DAILY 10 days #20 tabs 04/21/23 [Rx Last Taken Unknown] hydrocodone-acetaminop hen 5-325mg 5mg-325mg 1 tab PO Q4H PRN PRN Pain 2 days #4 TABLETS 04/28/23 [Rx Last Taken Unknown] meloxicam 7.5 mg tablet 7.5 mg PO DAILY #20 tabs 04/28/23 [Rx Last Taken Unknown] prednisone 20 mg tablet 40 mg (2 x 20 mg) PO DAILY 7 days #14 tabs 05/06/23 [Rx Last Taken Unknown] prednisone 20 mg tablet 40 mg (2 x 20 mg) PO DAILY #10 tabs 05/15/23 [Rx Last Taken Unknown] prednisone 20 mg tablet 60 mg (3 x 20 mg) PO DAILY #18 TABLETS 06/08/23 [Rx Last Taken Unknown] Allergy/AdvReac Type Severity Reaction Status Date / Time No Known Allergies Allergy Verified 06/08/23 09:11 Family History Mother Cancer Surgical History H/O eye surgery Social History household members: other Smoking Status: Never smoker substance use type: does not use ROS ROS ED Constitutional Constitutional ED: Denies chills, fever(s) or sweats Eyes Eyes: Denies change in vision ENT ENT ED: Denies dysphagia or sore throat Cardiovascular Cardiovascular: Denies chest pain, leg edema, palpitations or racing heartbeat Respiratory/Chest Respiratory/Chest: Denies cough, dyspnea or dyspnea on exertion Gastrointestinal Gastrointestinal: Denies abdominal pain, diarrhea, nausea or vomiting Genitourinary Genitourinary ED: Denies dysuria, hematuria or urinary frequency Musculoskeletal Musculoskeletal: Reports arthralgias and extremity pain; Denies back pain or neck pain Integumentary Denies rash or wounds Neurologic Neurologic: Denies headache(s), paresthesias or weakness EXAM Physical Exam Const Vital Signs: 06/08/23 09:12 Temperature 97 F L Temperature Source Temporal Pulse Rate 107 H Respiratory Rate 18 Blood Pressure 173/93 H Blood Pressure Mean 119 Pulse Ox 97 Oxygen Delivery Method Room Air Positive well nourished and well developed General Appearance ED: well developed and NAD HEENT Reports moist mucous membranes normocephalic and atraumatic Eyes PERRL, EOMs intact bilaterally and conjunctivae normal General Eye ED: Yes normal appearance of both eyes Neck no lymphadenopathy and supple General: Negative for tenderness Chest Wall Chest: Negative for tenderness Resp normal respiratory effort and normal air movement Effort and Inspection: symmetric chest movement; Negative for respiratory distress Cardio regular rate, regular rhythm and no murmurs Peripheral Pulses: pulses 2+ throughout GI normal to inspection, nondistended, normoactive bowel sounds and non-tender Palpation: Negative for guarding or rebound tenderness present Back/Spine no CVA tenderness and no thoracic nor lumbar tenderness Extremity Extremity Narrative: Left upper extremity no elbow or wrist tenderness. There is swelling to digits 3-5 no erythema pain with movement. Skin intact. No drainage. Cap refill less than 3 seconds. General Extremety ED: Negative for edema or tenderness General Extremity: Negative for edema Neuro oriented x3 and no sensory deficits noted Sensorium / Orientation: awake and alert Skin no rashes or lesions noted and no wounds MDM MDM MDM Narrative Medical decision making narrative: Interventions / MDM: Differential diagnosis: Arthralgia Diagnosis considered but do not suspect: Septic joint, no erythema or warmth. My EKG interpretation: N/A Imaging independently reviewed and interpreted by myself: N/A External documents reviewed: N/A Test considered but (more content not included)... Normal [facility] Emergency Department Summary on 05-15-2023 Emergency Department Summary [facility] Medical Records Department [address] [facility] [place] [address] Emergency Department Summary 05/15/23 MR#: [id number] Acct: [id number] Name: XIANG WEST Rep #: [id number] : 1965 57 From: Kota Isaac DO PCP: Dr. Rere Aguiar MD Status:REG ER Location: ED HPI History of Present Illness Chief Complaint: Upper Extremity Injury [facility] Medical History Cataract Gout Home Medications prednisone 20 mg tablet 40 mg PO DAILY 10 days #20 tabs 04/21/23 [Rx Last Taken Unknown] hydrocodone-acetaminop hen 5-325mg 5mg-325mg 1 tab PO Q4H PRN PRN Pain 2 days #4 TABLETS 04/28/23 [Rx Last Taken Unknown] meloxicam 7.5 mg tablet 7.5 mg PO DAILY #20 tabs 04/28/23 [Rx Last Taken Unknown] prednisone 20 mg tablet 40 mg PO DAILY 7 days #14 tabs 05/06/23 [Rx Last Taken Unknown] prednisone 20 mg tablet 40 mg PO DAILY #10 tabs 05/15/23 [Rx Last Taken Unknown] Allergy/AdvReac Type Severity Reaction Status Date / Time No Known Allergies Allergy Verified 05/15/23 06:32 Family History Mother Cancer Surgical History H/O eye surgery Social History household members: other Smoking Status: Never smoker substance use type: does not use EXAM Physical Exam Const Vital Signs: 05/15/23 06:33 Temperature 97 F L Temperature Source Temporal Pulse Rate 109 H Respiratory Rate 16 Blood Pressure 160/103 H Blood Pressure Mean 122 Pulse Ox 99 MDM [facility] Narrative Medical decision making narrative: HISTORY OF PRESENT ILLNESS: 57-year-old male here for left hand swelling. Patient states he has had 3 weeks of left fifth digit pain and swelling. States is responded to prednisone. States recently started allopurinol but has not had any effect. States he has a history of gouty arthritis diagnosed by arthrocentesis. Denies any trauma. Denies any fever. Denies a history of diabetes. Denies any numbness tingling loss sensation REVIEW OF SYSTEMS: Pertinent positives: Hand pain Pertinent negatives: Numbness tingling loss sensation PHYSICAL EXAM: Nursing triage notes reviewed, Vital signs reviewed Constitutional: please see mdm Extremities: No edema, no obvious deformity, slight swelling over the middle IP joint of the fifth digit of the left hand, no obvious fusiform swelling, no pain over flexor tendons, the finger is held neutral and not in flexion Neuro: Intact 5/5 strength with ok sign (median), intact finger abduction (ulnar) intact wrist extension (radial n). Intact sensation in the radial, ulnar, and median nerve distributions. Skin: No rash or lesions noted, no crepitus, no bullae, pain is on reports exam. MEDICAL DECISION MAKING: Chief Complaint: Hand pain External records reviewed: Multiple recent ED visits for similar Factors affecting care: History of gout Social determinants of health: Denies drug use History obtained from others: None Consults: None ALL IMAGES (IF OBTAINED) HAVE BEEN PERSONALLY REVIEWED AND INTERPRETED BY MYSELF. MDM Narrative: I considered the following differential diagnosis: Septic arthritis, fracture-dislocation, gouty arthritis, tenosynovitis The patient's presentation is clinically most consistent with gouty arthritis. There is no trauma to suggest fracture dislocation. The patient's presentation is not consistent with septic arthritis or flexor tenosynovitis. In addition to this there is no obvious area to perform arthrocentesis. I discussed risk and benefits of arthrocentesis. The patient I agreed the risk were higher than benefit at this time given lack of swelling or lack of an appropriate target and risk of damaging surrounding structures, bleeding and introducing infection. I gave the patient prednisone here in for 5 days. I gave him rheumatology follow-up. The patient and/or family, caregivers express understanding. The patient and/or family, caregivers agrees with the plan. Total critical care time today provided was at least 0 minutes. This excludes separately billable procedures. Critical care time (if documented) is secondary to the patient having high probability of clinically significant/life threatening deterioration in the patient's condition which required my urgent intervention. Shared decision making: I will have a discussion with the patient and or visitors regarding risk/benefits of further testing or admission. They will be made aware of of the risk/benefits inherent in this decision they will be given the opportunity to voice understanding. Discharge Plan Triage Chief Complaint: Upper Extremity Injury ED Provi (more content not included)... Normal [facility] Emergency Department Summary on 05-06-2023 Emergency Department Summary [facility] Medical Records Department [address] [place] [address] Emergency Department Summary 05/06/23 MR#: [id number] Acct: [id number] Name: XIANG WEST Rep #: [id number] : 1965 57 From: Dean Mendez MD PCP: Dr. Rere Aguiar MD Status:REG ER Location: ED HPI History of Present Illness HPI Narrative: [id number] male history of gout has atraumatic left hand swelling. He is on meloxicam without any relief. He has also been recently placed on allopurinol by an urgent care without relief. Presents today stating that normally prednisone makes this better. He just needs a prescription. He denies any fall or trauma. No fever. Chief Complaint: Edema Occured/Mechanism Mechanism/Context: No injury and No blunt trauma Onset/Context/Timing Onset: Days Context: Gradual Onset Timing: Continuous Quality of Pain: Dull and Aching Current Severity: Mild Maximum Severity: Mild Associated Symptoms Associated Symptoms: Negative for Parasthesia, Weakness or Loss of Funtion Narrative Narrative: 57-year-old male history of gout. Atraumatic left hand discomfort and swelling. Prior history of same with gout. Prior similar symptoms: Yes Recent Illness/Hospitalizatio n: No PFSH PFSH Medical History Cataract Gout Home Medications prednisone 20 mg tablet 40 mg PO DAILY 10 days #20 tabs 04/21/23 [Rx Last Taken Unknown] hydrocodone-acetaminop hen 5-325mg 5mg-325mg 1 tab PO Q4H PRN PRN Pain 2 days #4 TABLETS 04/28/23 [Rx Last Taken Unknown] meloxicam 7.5 mg tablet 7.5 mg PO DAILY #20 tabs 04/28/23 [Rx Last Taken Unknown] prednisone 20 mg tablet 40 mg PO DAILY 7 days #14 tabs 05/06/23 [Rx Last Taken Unknown] Allergy/AdvReac Type Severity Reaction Status Date / Time No Known Allergies Allergy Verified 05/06/23 20:31 Family History Mother Cancer Surgical History H/O eye surgery Social History household members: other Smoking Status: Never smoker substance use type: does not use ROS ROS ED ROS Narrative Denies recent illness. Review of Systems ROS Unobtainable: Denies due to encephalopathy Constitutional Constitutional ED: Denies fever(s) Eyes Eyes: Denies blurry vision ENT ENT ED: Denies ear pain Cardiovascular Cardiovascular: Denies chest pain Respiratory/Chest Respiratory/Chest: Denies cough or dyspnea Gastrointestinal Gastrointestinal: Denies abdominal pain Genitourinary Genitourinary ED: Denies dysuria or hematuria Musculoskeletal Musculoskeletal: Denies back pain Integumentary Denies abscess Neurologic Neurologic: Denies headache(s) Psychiatric Psychiatric: Denies anxiety Endocrine Endocrinology: Denies cold intolerance Hematologic/Lymphatic Hematologic/Lymphatic: Denies easy bleeding or easy bruising Allergic/Immunologic Allergic/Immunologic ED: Denies mouth swelling or tongue swelling EXAM Physical Exam Narrative Exam Narrative: 57-year-old male no acute distress. Vital signs stable afebrile. HEENT exam normal. Lungs clear. Heart regular rhythm. Abdomen soft nontender. Moving all 4 extremities. Left hand mildly swollen. Tender. No cellulitis. No lymphangitic streaking. No axillary lymphadenopathy. Left hand neurovascular intact. Decreased flexion extension due to discomfort and swelling. Exam consistent with gout. Const Vital Signs: 05/06/23 20:31 05/06/23 20:59 Temperature 98.8 F Temperature Source Temporal Pulse Rate 80 Respiratory Rate 16 Respiratory Effort Normal Respiratory Pattern Normal Blood Pressure 144/96 H Blood Pressure Mean 112 Pulse Ox 96 Positive well nourished and well developed; Negative for cachectic or unkempt General Appearance ED: well developed and NAD; Negative for unkempt, cachectic, cyanotic or diaphoretic Nutritional Appearance: Negative for cachectic HEENT Reports moist mucous membranes Negative for normocephalic, atraumatic, trauma or tenderness Eyes PERRL and EOMs intact bilaterally General Eye ED: Negative for other Neck full ROM and supple General: Negative for tenderness Lymph Lymphatic: Negative for other Chest Wall inspection of chest normal and palpation of chest normal Chest: Negative for other Resp normal respiratory effort and clear to auscultation bilaterally Effort and Inspection: Negative for pain with movement Auscultation: Negative for rales, rhonchi or wheezes Cardio regular rate, regular rhythm, S1 normal heart sound, S2 normal heart sound and no murmurs GI non-tender, non-distended and no masses Inspection: Negative for abdominal distention Auscultation: normoactive (more content not included)... Normal [facility] ANTINUCLEAR ANTIBODIES [facility] 05-04-2023 VIRY,DIRECT Negative Normal Negative [facility] Comment on above: Order Comment: Order Date: 05/03/23Order Info: [id number] - VIRY Result Comment: Perf ormed at: - [facility] [address] [id number] [place] Sorter: Brian Du PhD, Phone: [phone] Performed By: #### L 505.3981, L100.8324, R631.9937, J3306.4559, L102.1307 ####[facility] [id number] [place], [address] Absolute lymphocyte countOrd ered By: Dr. Butler on 05-03-2023 Lymphocytes Auto (Unsp spec) [#/Vol] 1.72 10*3/uL 0.83-4.51 [facility] Basophil percentageOrdered B y: Dr. Butler on 05-03-2023 Basophils/100 WBC (Bld) 0.3 % 0-1 [facility] Eosinophils/100 WBC (Bld) 0.1 % 0-5 [facility] Neutrophils (Bld) [#/Vol] 8.5 10*3/uL 2.0-7.7 [facility] Neutrophils/100 WBC (Bld) 78.9 % 47-70 [facility] WBC (Bld) [#/Vol] 10.7 10*3/uL 4.4-11.[address] [facility] Blood erythrocytes count (nu mber/volume)Ordered By: Dr. Butler on 05-03-2023 RBC (Bld) [#/Vol] 4.68 10*6/uL 4.6-6.[address] [facility] Blood hemoglobin measurement (mass/volume)Ordered By: Dr. Butler on 05-03-2023 Hemoglobin (Bld) [Mass/Vol] 14.3 g/dL 13.0-16.5 [facility] Blood lymphocytes/100 leukoc ytesOrdered By: Dr. Butler on 05-03-2023 Lymphocytes/100 WBC (Bld) 16.0 % 19-41 [facility] Blood monocytes/100 leukocyt esOrdered By: Dr. Butler on 05-03-2023 Monocytes/100 WBC (Bld) 3.3 % 0-10 [facility] Blood platelet mean volumeOr dered By: Dr. Butler on 05-03-2023 Platelet mean volume (Bld) [Entitic vol] 10.4 fL 6.2-12.0 [facility] CBC W/Diff, Automatedon 06-0 5-2023 Absolute Lymph 1.72 X10 3/uL Normal 0.83-4.51 [facility] Comment on above: Order Comment: Order Date: 05/03/23 Order Info: [id number] - CBCD Order Info: [id number] - SED Performed By: #### L 505.7010, L100.0100, L501.1400, L3100.5475, L101.9900 #### [facility] [address] [place], [address] Absolute Neut 8.5 X10 3/uL High 2.0-7.7 [facility] Comment on above: Order Comment: Order Date: 05/03/23 Order Info: [id number] - CBCD Order Info: [id number] - SED Performed By: #### L 505.7010, L100.0100, L501.1400, L3100.5475, L101.9900 #### [facility] [address] [place], [address] Basophils/100 WBC (Bld) 0.3 % Normal 0-1 [facility] Comment on above: Order Comment: Order Date: 05/03/23 Order Info: [id number] - CBCD Order Info: [id number] - SED Performed By: #### L 505.7010, L100.0100, L501.1400, L3100.5475, L101.9900 #### [facility] [address] [place], [address] Eosinophils/100 WBC (Bld) 0.1 % Normal 0-5 [facility] Comment on above: Order Comment: Order Date: 05/03/23 Order Info: [id number] - CBCD Order Info: [id number] - SED Performed By: #### L 505.7010, L100.0100, L501.1400, L3100.5475, L101.9900 #### [facility] [address] [place], [address] Erythrocyte distribution width (RBC) [Ratio] 14.5 % Normal 11.6-14.6 [facility] Comment on above: Order Comment: Order Date: 05/03/23 Order Info: [id number] - CBCD Order Info: [id number] - SED Performed By: #### L 505.7010, L100.0100, L501.1400, L3100.5475, L101.9900 #### [facility] [address] [place], [address] Hematocrit (Bld) [Volume fraction] 43.5 % Normal 40-54 [facility] Comment on above: Order Comment: Order Date: 05/03/23 Order Info: [id number] - CBCD Order Info: [id number] - SED Performed By: #### L 505.7010, L100.0100, L501.1400, L3100.5475, L101.9900 #### [facility] [address] [place], [address] Hemoglobin (Bld) [Mass/Vol] 14.3 g/dL Normal 13.0-16.5 [facility] Comment on above: Order Comment: Order Date: 05/03/23 Order Info: 183-11 - CBCD Order Info: [id number] - SED Performed By: #### L 505.7010, L100.0100, L501.1400, L3100.5475, L101.9900 #### [facility] [address] [place], [address] IG% 1.400 High 0.0-0.9 [facility] Comment on above: Order Comment: Order Date: 05/03/23 Order Info: 183-11 - CBCD Order Info: [id number] - SED Result Comment: IG% - Immature Granulocytes (promyelocytes, myelocytes and metamyelocytes) > 1% indicates that a LEFT SHIFT is Present. Performed By: #### L 505.7010, L100.0100, L501.1400, L3100.5475, L101.9900 #### [facility] [address] [place], [address] Lymphocytes/100 WBC (Bld) 16.0 % Low 19-41 [facility] Comment on above: Order Comment: Order Date: 05/03/23 Order Info: 183-11 - CBCD Order Info: [id number] - SED Performed By: #### L 505.7010, L100.0100, L501.1400, L3100.5475, L101.9900 #### [facility] [address] [place], [address] MCH (RBC) [Entitic mass] 30.6 pg Normal 27.0-32.0 [facility] Comment on above: Order Comment: Order Date: 05/03/23 Order Info: 183-11 - CBCD Order Info: - SED Performed By: #### L 505.7010, L100.0100, L501.1400, L3100.5475, L101.9900 #### [facility] [address] [place], [address] MCHC (RBC) [Mass/Vol] 32.9 g/dL Normal 32-36 [facility] Comment on above: Order Comment: Order Date: 05/03/23 Order Info: 183-11 - CBCD Order Info: - SED Performed By: #### L 505.7010, L100.0100, L501.1400, L3100.5475, L101.9900 #### [facility] [address] [place], [address] MCV (RBC) [Entitic vol] 92.9 fL Normal 80-94 [facility] Comment on above: Order Comment: Order Date: 05/03/23 Order Info: 183-11 - CBCD Order Info: - SED Performed By: #### L 505.7010, L100.0100, L501.1400, L3100.5475, L101.9900 #### [facility] [address] [place], [address] Monocytes/100 WBC (Bld) 3.3 % Normal 0-10 [facility] Comment on above: Order Comment: Order Date: 05/03/23 Order Info: 018- - CBCD Order Info: [id number] - SED Performed By: #### L 505.7010, L100.0100, L501.1400, L3100.5475, L101.9900 #### [facility] [address] [place], [address] Neutrophils/100 WBC (Bld) 78.9 % High 47-70 [facility] Comment on above: Order Comment: Order Date: 05/03/23 Order Info: [id number] - CBCD Order Info: [id number] - SED Performed By: #### L 505.7010, L100.0100, L501.1400, L3100.5475, L101.9900 #### [facility] [address] [place], [place], [id number] (760) Nucleated RBC (Bld) [#/Vol] 0 10*3/uL Normal 0-5 [facility] Comment on above: Order Comment: Order Date: 05/03/23 Order Info: 018- - CBCD Order Info: [id number] - SED Performed By: #### L 505.7010, L100.0100, L501.1400, L3100.5475, L101.9900 #### [facility] [address] [place], [address] Platelet mean volume (Bld) [Entitic vol] 10.4 fL Normal 6.2-12.0 [facility] Comment on above: Order Comment: Order Date: 05/03/23 Order Info: 0184- - CBCD Order Info: [id number] - SED Performed By: #### L 505.7010, L100.0100, L501.1400, L3100.5475, L101.9900 #### [facility] [address] [place], [address] Platelets (Bld) [#/Vol] 283 10*3/uL Normal 150-450 [facility] Comment on above: Order Comment: Order Date: 05/03/23 Order Info: 018- - CBCD Order Info: [id number] - SED Performed By: #### L 505.7010, L100.0100, L501.1400, L3100.5475, L101.9900 #### [facility] [address] [place], [address] RBC (Bld) [#/Vol] 4.68 10*6/uL Normal 4.6-6.[address] [facility] Comment on above: Order Comment: Order Date: 05/03/23 Order Info: [id number] - CBCD Order Info: [id number] - SED Performed By: #### L 505.7010, L100.0100, L501.1400, L3100.5475, L101.9900 #### [facility] [address] [place], [address] RDW SD 49.1 fl High 35.1-43.9 [facility] Comment on above: Order Comment: Order Date: 05/03/23 Order Info: 0184- - CBCD Order Info: [id number] - SED Performed By: #### L 505.7010, L100.0100, L501.1400, L3100.5475, L101.9900 #### [facility] [address] [place], [address] WBC (Bld) [#/Vol] 10.7 10*3/uL Normal 4.4-11.[address] [facility] Comment on above: Order Comment: Order Date: 05/03/23 Order Info: 0184- - CBCD Order Info: [id number] - SED Performed By: #### L 505.7010, L100.0100, L501.1400, L3100.5475, L101.9900 #### [facility] [address] [place], [place], [address] Determination of erythrocyte mean corpuscular volume (MCV)Ordered By: Dr. Butler on 05-03-2023 MCV (RBC) [Entitic vol] 92.9 fL 80-94 [facility] Erythrocyte Sed Rateon 05-03 SED RATE 24 mm/hr High 0-20 [facility] Comment on above: Order Comment: Order Date: 05/03/23 Order Info: 0184-1 - CBCD Order Info: [id number] - SED Performed By: #### L 505.7010, L100.0100, L501.1400, L3100.5475, L101.9900 #### [facility] [address] [place], [place], [address] Erythrocyte sedimentation ra teOrdered By: Dr. Butler on 05-03-2023 ESR (Bld) [Velocity] 24 mm/h 0-20 [facility] Hand Min 3 Viewson 3 Hand Min 3 Views [facility] Imaging Services [address] [place] [address] Hand Min 3 Views MR#: [id number] Acct: [id number] Name: XIANG WEST Rep #: [id number] : 1965 M 57 From: Jere Bae MD PCP: Dr. Rere Aguiar MD Status: REG CLI Study: Hand Min 3 Views Date of Exam: 05/03/23 Exam# [id number] Ordering Dr: Tim Butler MD EXAM: XR LEFT HAND COMPLETE, 3 OR MORE VIEWS CLINICAL INDICATION: pain TECHNIQUE: Frontal, lateral and oblique views of the left hand. COMPARISON: No relevant prior studies available. FINDINGS: BONES/JOINTS: There are mild degenerative changes with narrowing of the distal interphalangeal joint predominantly in the fourth phalanx. No acute fracture. No subluxation. Normal alignment. No sclerotic or destructive changes observed. SOFT TISSUES: Unremarkable. No soft tissue swelling or gas. No radiopaque foreign body. RAD/Hand Min 3 Views IMPRESSION: Degenerative changes with narrowing of the distal interphalangeal joints. There are no acute osseous abnormalities. Electronically Signed: Jere Bae MD at 20:31 EDT , CC: Dr. Rere Aguiar MD; Dr. Tim Butler MD Weekend Anchor: Signed Normal [facility] Hematocrit Auto (Bld) [Volum e fraction]Ordered By: Dr. Butler on 05-03-2023 Hematocrit (Bld) [Volume fraction] 43.5 % 40-54 [facility] - Hematology and Cell countsOrdered By: Dr. Butler on 05-03-2023 Erythrocyte distribution width (RBC) [Entitic vol] 49.1 fL 35.1-43.9 [facility] Erythrocyte distribution width (RBC) [Ratio] 14.5 % 11.6-14.6 [facility] Immature granulocytes/100 WBC (Bld) 1.400 % 0.0-0.9 [facility] Comment on above: IG% - Immature Granu locytes (promyelocytes, myelocytes and metamyelocytes) > 1% indicates that a LEFT SHIFT is Present. MCH (RBC) [Entitic mass] 30.6 pg 27.0-32.0 [facility] Nucleated RBC/100 WBC (Bld) [Ratio] 0 % 0-5 [facility] MCHC Auto (RBC) [Mass/Vol]Or dered By: Dr. Butler on 05-03-2023 MCHC (RBC) [Mass/Vol] 32.9 g/dL 32-36 [facility] No Panel InformationOrdered By: Dr. Butler on 05-03-2023 Anti-Nuclear Antibody Screen Negative Negative [facility] Comment on above: Performed at: [place] [id number] Director: Brian Du PhD, Phone: [phone] Platelets bldOrdered By: Dr. Butler on 05-03-2023 Platelets (Bld) [#/Vol] 283 10*3/uL 150-450 [facility] Rheumatoid Factoron 05-03-20 23 RHEUMATOID FAC < 10.0 Normal <15 [facility] Comment on above: Order Comment: Order Date: 05/03/23 Order Info: [id number] - URIC Order Info: [id number] - RA Performed By: #### L 505.7010, L100.0100, L501.1400, L3100.5475, L101.9900 #### [facility] [address] [place], [place], [address] Serum or plasma uric acid me asurement (mass/volume)Ordered By: Dr. Butler on 05-03-2023 Urate [Mass/Vol] 8.3 mg/dL 3.5-7.2 [facility] Comment on above: The drugs N-Acetylcy steine and Metamizole may falsely depress this assay. Serum rheumatoid factor dete ctionOrdered By: Dr. Butler on 05-03-2023 Rheumatoid factor Ql (S) < 10.0 IU/mL <15 [facility] Uric Acidon 05-03-2023 URIC 8.3 mg/dL High 3.5-7.2 [facility] Comment on above: Order Comment: Order Date: 05/03/23 Order Info: [id number] - URIC Order Info: [id number] - RA Result Comment: The drugs N-Acetylcysteine and Metamizole may falsely depress this assay. Performed By: #### L 505.7010, L100.0100, L501.1400, L3100.5475, L101.9900 #### [facility] [address] [place], [place], [address] Emergency Department Summary on 04-28-2023 Emergency Department Summary [facility] Medical Records Department [address] [place] [address] Emergency Department Summary 04/28/23 MR#: [id number] Acct: [id number] Name: XIANG WEST Rep #: [id number] : 1965 57 From: Mauricio Ceja DO PCP: Dr. Rere Aguiar MD Status:DEP ER Location: ED HPI History of Present Illness Chief Complaint: Upper Extremity Injury Narrative Narrative: Patient is a left dominant 57-year-old male who is presenting to the ER today with chief complaint of left hand pain, left finger pain to the left pinky and ring finger. Patient has been here sev eral times to the ER in the past several weeks. Patient states that he has been on prednisone, that has helped. But when the prednisone wears off, the pain and swelling will come back. The left fourth and fifth finger is having pain with flexion, extension, and do have mild swelling. Patient has been treated for gout several times. Patient has not followed up with orthopedic surgeon or lubricating specialist. Patient does have a PCP. Patient is also aware of his blood pressure being elevated, patient states that he has a history of elevated blood pressure when he is in the ER, whitecoat hypertension. 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 Patient has no burn. Patient has no acute injury, fall, or trauma. This is acute on chronic pain for the past several months. Patient has no left elbow pain, left shoulder pain, neck pain, no headache, no other acute complaints. PFSH PFS Medical History Cataract Gout Home Medications prednisone 20 mg tablet 40 mg PO DAILY 10 days #20 tabs 04/21/23 [Rx Last Taken Unknown] hydrocodone-acetaminop hen 5-325mg 5mg-325mg 1 tab PO Q4H PRN PRN Pain 2 days #4 TABLETS 04/28/23 [Rx Last Taken Unknown] meloxicam 7.5 mg tablet 7.5 mg PO DAILY #20 tabs 04/28/23 [Rx Last Taken Unknown] Allergy/AdvReac Type Severity Reaction Status Date / Time No Known Allergies Allergy Verified 04/28/23 14:15 Family History Mother Cancer Surgical History H/O eye surgery Social History household members: other Smoking Status: Never smoker substance use type: does not use ROS ROS ED ROS Narrative REVIEW OF SYSTEMS: Unless otherwise stated in this report the patient's positive and negative responses for review of systems for constitutional, eyes, ENT, cardiovascular, respiratory, gastrointestinal, neurological, , musculoskeletal, and integument systems and related systems to the presenting problem are either stated in the history of present illness or were not pertinent or were negative for the symptoms and/or complaints related to the presenting medical problem. EXAM Physical Exam Narrative Exam Narrative: Vital signs reviewed and patient is not hypoxic. General: The patient appears well and in no apparent distress. Patient is resting comfortably on cart. Not toxic, lethargic, or listless. Skin: Warm, dry, no pallor noted. There is no rash noted. Head: Normocephalic, atraumatic Eye: Normal conjunctiva, no drainage, EOMI. PERRL. Ears, Nose, Mouth, and Throat: oral mucosa is moist. Nares patent. Mouth without vesicles. Cardiovascular: Regular Rate and Rhythm, no murmurs, gallops, or rubs Respiratory: Patient is in no distress, no accessory muscle use, lungs are clear to auscultation, no wheezing, rales or rhonchi Musculoskeletal: The patient has full range of motion of all extremities and joints with no difficulty except to his left ring and pinky finger. Patient has moderate pain with flexion and extension of left pinky finger. There is no redness. Patient has no [place] signs. Patient has no obvious injury, deformity. Patient has normal cap refill to all 5 fingers of the left hand. Patient has full range of motion of his left wrist, elbow and left shoulder no difficulty. Patient has no pain to ulnar groove the left elbow. No sensation deficits to all 5 fingers of the left hand. No signs of cellulitis, no signs of septic joint to his left ring or pinky finger. . Patient has no motor, no sensory deficits. Neurological: A O x4, normal speech, no focal neurological deficits. Psychiatric: Cooperative Const Vital Signs: 04/28/23 14:13 Temperature 98 F Temperature Source Temporal Pulse Rate 84 Respiratory Rate 16 Blood Pressure 159/114 H Blood Pressure Mean 129 Pulse Ox 99 Oxygen Delivery Method Room Air MDM MDM MDM Narrative Medical decision making narrative: Patient was educated that we cannot treat chronic pain from the ER. Patient was given names and numbers of orthopedic surgeons and lubricating specialist to follow-up with. Patient told me (more content not included)... Normal [facility] Emergency Department Summary on 04-21-2023 Emergency Department Summary [facility] Medical Records Department [address] [place] [address] Emergency Department Summary 04/21/23 MR#: [id number] Acct: [id number] Name: XIANG WEST Rep #: [id number] : 1965 57 From: Dean Mendez MD PCP: Dr. Rere Aguiar MD Status:REG ER Location: ED HPI History of Present Illness HPI Narrative: 57-year-old male history of gout as atraumatic left hand swelling primarily of the small and ring finger. Denies any fall injury or trauma. Prior history. Was seen in the emergency department started on a prednisone taper which he says not significantly improved his symptoms. He has had this before and his prednisone normally help. He denies any fever or redness. He said his only some mild discomfort. He has never had surgery to his left hand. He is left-hand dominant. Chief Complaint: Edema Informant: patient Occured/Mechanism Mechanism/Context: No injury and No blunt trauma Onset/Context/Timing Onset: Weeks Context: Gradual Onset Timing: Continuous Quality of Pain: Dull and Aching Current Severity: Mild Maximum Severity: Mild Associated Symptoms Associated Symptoms: Negative for Parasthesia, Weakness or Loss of Funtion Narrative Narrative: The 57-year-old gentleman with history of gout and atraumatic swelling to his left ring and small finger. Was on a short course of prednisone taper that did not improve his symptoms. He has had this before. Denies any surgery to his left hand. He denies any fever or chills. Prior similar symptoms: Yes Recent Illness/Hospitalizatio n: No PFSH PFSH Medical History Cataract Gout Home Medications prednisone 20 mg tablet 40 mg PO DAILY 10 days #20 tabs 04/21/23 [Rx Last Taken Unknown] Allergy/AdvReac Type Severity Reaction Status Date / Time No Known Allergies Allergy Verified 04/21/23 03:07 Family History Mother Cancer Surgical History H/O eye surgery Social History household members: other Smoking Status: Never smoker substance use type: does not use ROS ROS ED ROS Narrative Denies recent illness. Review of Systems ROS Unobtainable: Denies due to encephalopathy Constitutional Constitutional ED: Denies chills or fever(s) Eyes Eyes: Denies blurry vision ENT ENT ED: Denies ear pain Cardiovascular Cardiovascular: Denies chest pain Respiratory/Chest Respiratory/Chest: Denies cough Gastrointestinal Gastrointestinal: Denies abdominal pain Genitourinary Genitourinary ED: Denies dysuria Musculoskeletal Musculoskeletal: Denies back pain Integumentary Denies abscess Neurologic Neurologic: Denies headache(s) Psychiatric Psychiatric: Denies anxiety Endocrine Endocrinology: Denies cold intolerance Hematologic/Lymphatic Hematologic/Lymphatic: Denies easy bleeding Allergic/Immunologic Allergic/Immunologic ED: Denies mouth swelling or tongue swelling EXAM Physical Exam Narrative Exam Narrative: 57-year-old male vital signs stable afebrile. No acute distress. HEENT exam unremarkable. Lungs clear. Heart regular rhythm no murmur. Abdomen soft nontender. Moving all 4 extremities. Neurovascular intact. Specifically the left wrist is nontender nonswollen. The left hand he has mild swelling to his left small finger ring finger. There is no jewelry on the hand. There is no signs of cellulitis. No lymphangitic streaking. No axillary lymphadenopathy. The forearm, left elbow and left shoulder are unremarkable. He has full flexion to the left hand. There is no signs of trauma. No bony deformity. Normal touch sensation. Const Vital Signs: 04/21/23 03:03 Temperature 98.1 F Temperature Source Temporal Pulse Rate 64 Respiratory Rate 15 Blood Pressure 159/86 H Blood Pressure Mean 110 Pulse Ox 100 Oxygen Delivery Method Room Air Positive well nourished and well developed; Negative for cachectic, contractures or unkempt General Appearance ED: well developed and NAD; Negative for unkempt, cachectic, contractures, cyanotic or diaphoretic Nutritional Appearance: Negative for cachectic HEENT Reports moist mucous membranes normocephalic and atraumatic; Negative for trauma or tenderness Neck full ROM and supple General: Negative for tenderness Lymph Lymphatic: Negative for other Chest Wall inspection of chest normal and palpation of chest normal Resp Effort and Inspection: Negative for pain with movement Auscultation: Negative for rales, rhonchi or wheezes Cardio regular rate, regular rhythm, S1 normal heart sound, S2 normal heart sound and no murmurs Rate: Negative for bradycardia or tachycardic Rhythm: Negative for ab (more content not included)... Normal [facility] Emergency Department Summary on 04-14-2023 Emergency Department Summary [facility] Medical Records Department [address] [place] [address] Emergency Department Summary 04/14/23 MR#: [id number] Acct: [id number] Name: XIANG WEST Rep #: [id number] : 1965 57 From: Rei German DO PCP: Dr. Rere Aguiar MD Status:DEP ER Location: ED HPI History of Present Illness Chief Complaint: Upper Extremity Injury Narrative Narrative: 57-year-old male with history of gout with nontraumatic left hand swelling. He believes you have a gout flare. This started yesterday. No numbness or tingling. PFSH PFSH Medical History Cataract Gout Home Medications prednisone 10 mg tablet 10 mg PO UD #33 tabs 04/14/23 [Rx Last Taken Unknown] Allergy/AdvReac Type Severity Reaction Status Date / Time No Known Allergies Allergy Verified 04/14/23 18:48 Family History Mother Cancer Surgical History H/O eye surgery Social History household members: other Smoking Status: Never smoker substance use type: does not use ROS ROS ED Constitutional Constitutional ED: Denies chills, fever(s) or sweats Eyes Eyes: Denies blurry vision or change in vision ENT ENT ED: Denies ear pain or sore throat Cardiovascular Cardiovascular: Denies chest pain, palpitations or racing heartbeat Respiratory/Chest Respiratory/Chest: Denies cough, dyspnea or sputum Gastrointestinal Gastrointestinal: Denies abdominal pain, constipation, diarrhea, nausea or vomiting Genitourinary Genitourinary ED: Denies dysuria, hematuria or urinary frequency Musculoskeletal Musculoskeletal: Reports other Details: Left hand edema ; Denies arthralgias, myalgias or neck pain Integumentary Reports other; Denies abscess, Abrasions or rash Neurologic Neurologic: Denies headache(s), paresthesias or weakness Psychiatric Psychiatric: Denies anxiety, depression, suicidal ideation or suicidal thoughts Endocrine Endocrinology: Denies polydipsia or polyuria EXAM Physical Exam Const Vital Signs: 04/14/23 18:49 Temperature 97.8 F Temperature Source Temporal Pulse Rate 78 Respiratory Rate 16 Blood Pressure 152/97 H Blood Pressure Mean 115 Pulse Ox 98 Oxygen Delivery Method Room Air Positive well nourished HEENT normocephalic and atraumatic Eyes PERRL and EOMs intact bilaterally Resp normal respiratory effort Cardio regular rate and regular rhythm Extremity Extremity Narrative: Left hand edema diffusely. Left hand neurovascular intact brisk cap refill all 5 fingers. No bony tenderness. Neuro oriented x3 and CN's II-XII intact bilaterally Sensorium / Orientation: alert Motor Exam: strength 5/5 throughout Psych mental status grossly normal MDM MDM MDM Narrative Medical decision making narrative: 57-year-old male likely with gout flare to the left hand. He was put on prednisone taper. First dose given in the ER. He is counseled to follow-up with his PCP to ensure resolution. Discharged stable condition. Impression: 1. Gout flare Discharge Plan Triage Chief Complaint: Upper Extremity Injury ED Provider: Rei German Dx/Rx/DC Orders Instructions: ED Gout, ED Gout Diet Prescriptions: New prednisone 10 mg tablet 10 mg PO UD Qty: 33 0RF Rx Instructions: Take 4 tablets daily for 3 days, then 3 daily for 3 days, then 2 daily for 3 days, then 1 a day for 3 days then 1 QOD for 3 doses. Primary Care Provider: Rere Aguiar Referrals: Rere Aguiar MD [Primary Care Provider] - Disposition Disposition: Home, Self Care Discharge Date/Time: 04/14/23 20:24 What to do if you have Problems For any increased pain, shortness of breath, bleeding, nausea or vomiting, chest pain, or any unexpected problems, contact your Primary Care Provider. Call [facility] ([phone]) or report to the closest Emergency Room. Call 911 if necessary. 04/15/23 1422 Cosigner Signature (if applicable): CC: Dr. Rere Aguiar MD Signed Normal [facility] Basophil percentageOrdered B y: Dr. Aguiar on 03-03-2023 Chloride [Moles/Vol] 110 mmol/L 98-107 [facility] Cholesterol [Mass/Vol] 169 mg/dL <200 [facility] Comment on above: <200 mg/dL Desirable 200-240 mg/dL Borderline >240 mg/dL High Risk Glucose [Mass/Vol] 91 mg/dL 74-106 [facility] Potassium [Moles/Vol] 3.7 mmol/L 3.5-5.1 [facility] Sodium [Moles/Vol] 139 mmol/L 136-145 [facility] Triglyceride [Mass/Vol] 333 mg/dL <199 [facility] Comment on above: The drugs N-Acetylcy steine and Metamizole may falsely depress this assay.Serum Triglycerides Reference Interval Normal <150 mg/dL Borderline high 150 - 199 mg/dL High 200 - 499 mg/dL Very High > or = 500 mg/dL Laboratory - Chemistry and C hemistry - challengeOrdered By: Dr. Aguiar on 03-03-2023 CO2 [Moles/Vol] 22.0 mmol/L 21.0-32.0 [facility] Urea nitrogen/Creatinine [Mass ratio] 18.8 mg/mg 10-20 [facility] No Panel InformationOrdered By: Dr. Aguiar on 03-03-2023 Estimated GFR (MDRD) Amer 82 mL/min >60 [facility] Comment on above: GFR Calc Estimated GFR (MDRD) Non-Af Amer 68 mL/min >60 [facility] Comment on above: Non- GFR Calc Prostate Specific Antigen Total 0.96 ng/mL 0.0-4.0 [facility] Comment on above: This test was perfor med using the TPSA assay method for the[employer]emoteq chemistry system. Values obtained with differentassay methods cannot be used interchangably.When changing PSA assays in the course of monitoring apatient, additional sequential testing should be carriedout to confirm baseline values. Urine Microalbumin/Creatinine Ratio 15.4 mg/g CRE <30 [facility] Serum or plasma calcium neno urement (mass/volume)Ordered By: Dr. Aguiar on 03-03-2023 Calcium [Mass/Vol] 8.6 mg/dL 8.5-10.1 [facility] Serum or plasma cholesterol in HDL measurement (mass/volume)Ordered By: Dr. Aguiar on 03-03-2023 Cholesterol in HDL [Mass/Vol] 48 mg/dL >40 [facility] Comment on above: The drugs N-Acetylcy steine and Metamizole may falsely depress this assay. Reference Range HDL <40 mg/dL Low HDL Cholesterol HDL >or= 60 mg/dL High HDL Cholesterol Serum or plasma cholesterol in VLDL measurement (mass/volume)Ordered By: Dr. Aguiar on 03-03-2023 Cholesterol in VLDL [Mass/Vol] 67 mg/dL 5-40 [facility] Serum or plasma creatinine m easurement (mass/volume)Ordered By: Dr. Aguiar on 03-03-2023 Creatinine [Mass/Vol] 1.17 mg/dL 0.70-1.30 [facility] Comment on above: The validity of the calculated GFR & GFRAA in patients over 70 years has not been determined. Clinical correlation is essential. Serum or plasma low density lipoprotein (LDL) cholesterol measurement (mass/volume)Ordered By: Dr. Aguiar on 03-03-2023 Cholesterol in LDL [Mass/Vol] 54 mg/dL 0-130 [facility] Serum or plasma urea nitroge n measurement (mass/volume)Ordered By: Dr. Aguiar on 03-03-2023 Urea nitrogen [Mass/Vol] 22 mg/dL 7-18 [facility] Thin prep Papanicolaou smear with manual screeningOrdered By: Dr. Aguiar on 03-03-2023 Thin prep Papanicolaou smear with manual screening 7 5-15 [facility] Thin prep Papanicolaou smear with manual screening 30.7 mg/L NO RANGE EST. [facility] Urine creatinine measurement (mass/volume)Ordered By: Dr. Aguiar on 03-03-2023 Creatinine (U) [Mass/Vol] 199.00 mg/dL NO RANGE EST. [facility] Absolute lymphocyte counton 02-09-2022 Lymphocytes Auto (Unsp spec) [#/Vol] 2.88 10*3/uL 0.83-4.51 [facility] Work Phone: Basophil percentageon 2021 Basophils/100 WBC (Bld) 0.4 % 0-1 [facility] Work Phone: Chloride [Moles/Vol] 111 mmol/L 98-107 [facility] Work Phone: [phone] Eosinophils/100 WBC (Bld) 1.1 % 0-5 [facility] Work Phone: [phone] Glucose [Mass/Vol] 107 mg/dL 74-106 [facility] Work Phone: Comment on above: Fasting Glucose resu lt from 100 to 125 mg/dL suggests IMPAIRED HOMEOSTASIS per A.D.A. criteria. Neutrophils (Bld) [#/Vol] 5.5 10*3/uL 2.0-7.7 [facility] Work Phone: Neutrophils/100 WBC (Bld) 60.0 % 47-70 [facility] Work Phone: Potassium [Moles/Vol] 3.9 mmol/L 3.5-5.1 [facility] Work Phone: [phone] Sodium [Moles/Vol] 140 mmol/L 136-145 [facility] Work Phone: WBC (Bld) [#/Vol] 9.2 10*3/uL 4.4-11.0 [facility] Work Phone: [phone] Blood erythrocytes count (nu mber/volume)on 02-09-2022 RBC (Bld) [#/Vol] 5.34 10*6/uL 4.6-6.[address] [facility] Work Phone: Blood hemoglobin measurement (mass/volume)on 02-09-2022 Hemoglobin (Bld) [Mass/Vol] 16.1 g/dL 13.0-16.5 [facility] Work Phone: [phone] Blood lymphocytes/100 leukoc yteson 02-09-2022 Lymphocytes/100 WBC (Bld) 31.4 % 19-41 [facility] Work Phone: Blood monocytes/100 leukocyt eson 02-09-2022 Monocytes/100 WBC (Bld) 6.8 % 0-10 [facility] Work Phone: Blood platelet mean volumeon 02-09-2022 Platelet mean volume (Bld) [Entitic vol] 10.0 fL 6.2-12.0 [facility] Work Phone: Determination of erythrocyte mean corpuscular volume (MCV)on 02-09-2022 MCV (RBC) [Entitic vol] 89.9 fL 80-94 [facility] Work Phone: Hematocrit Auto (Bld) [Volum e fraction]on 02-09-2022 Hematocrit (Bld) [Volume fraction] 48.0 % 40-54 [facility] Work Phone: INR in Blood by Coagulation assayon 02-09-2022 INR Coag (Bld) [Relative time] 0.9 {INR} [facility] Work Phone: Laboratory - Chemistry and C hemistry - challengeon 02-09-2022 CO2 [Moles/Vol] 24.0 mmol/L 21.0-32.0 [facility] Work Phone: Urea nitrogen/Creatinine [Mass ratio] 15.5 mg/mg 10-20 [facility] Work Phone: Laboratory - Coagulationon 0 02-09-2022 PT Coag (PPP) [Time] 11.9 s 11.7-14.9 [facility] Work Phone: Laboratory - Hematology and Cell countson 02-09-2022 Erythrocyte distribution width (RBC) [Entitic vol] 44.7 fL 35.1-43.9 [facility] Work Phone: Erythrocyte distribution width (RBC) [Ratio] 13.6 % 11.6-14.6 [facility] Work Phone: Immature granulocytes/100 WBC (Bld) 0.300 % 0.0-0.9 [facility] Work Phone: Comment on above: IG% - Immature Granu locytes (promyelocytes, myelocytes and metamyelocytes) > 1% indicates that a LEFT SHIFT is Present. MCH (RBC) [Entitic mass] 30.1 pg 27.0-32.0 [facility] Work Phone: Nucleated RBC/100 WBC (Bld) [Ratio] 0 % 0-5 [facility] Work Phone: MCHC Auto (RBC) [Mass/Vol]on 02-09-2022 MCHC (RBC) [Mass/Vol] 33.5 g/dL 32-36 [facility] Work Phone: No Panel Informationon 02-09 Estimated Creatinine Clearance Calc 87.49 ml/min [facility] Work Phone: Estimated GFR (MDRD) Amer 88 mL/min >60 [facility] Work Phone: Comment on above: GFR Calc Estimated GFR (MDRD) Non-Af Amer 73 mL/min >60 [facility] Work Phone: Comment on above: Non- GFR Calc Troponin I High Sensitivity 4 pg/mL 3.0-78.0 [facility] Work Phone: Comment on above: Please Note: New Sofia t Units and Gender Specific Reference Ranges. For more information see Policy Stat Procedure [place] High Sensitivity Troponin (TNIH) and attachments. Platelets bldon 02-09-2022 Platelets (Bld) [#/Vol] 296 10*3/uL 150-450 [facility] Work Phone: Serum or plasma calcium neno urement (mass/volume)on 02-09-2022 Calcium [Mass/Vol] 9.0 mg/dL 8.5-10.1 [facility] Work Phone: Serum or plasma creatinine m easurement (mass/volume)on 02-09-2022 Creatinine [Mass/Vol] 1.10 mg/dL 0.70-1.30 [facility] Work Phone: Comment on above: The validity of the calculated GFR & GFRAA in patients over 70 years has not been determined. Clinical correlation is essential. Serum or plasma urea nitroge n measurement (mass/volume)on 02-09-2022 Urea nitrogen [Mass/Vol] 17 mg/dL 7-18 [facility] Work Phone: Thin prep Papanicolaou smear with manual screeningon 02-09-2022 Thin prep Papanicolaou smear with manual screening 04 02- [facility] Work Phone: BASIC METABOLIC PANELon 09- Anion gap 12 mmol/L Normal 10 - 20 [facility] Comment on above: Performed By: #### B MP ####[facility] [place] [address] Bicarbonate (HCO3) 26 mmol/L Normal 21 - 32 [facility] Comment on above: Performed By: #### B MP ####[facility] [place] [address] Calcium 9.0 mg/dL Normal 8.6 - 10.6 [facility] Comment on above: Performed By: #### B MP ####[facility] [place] [address] Chloride 110 mmol/L High 98 - 107 [facility] Comment on above: Performed By: #### B MP ####[facility] [place] [address] Creatinine 1.14 mg/dL Normal 0.50 - 1.30 [facility] Comment on above: Performed By: #### B MP ####[facility] [place] [address] eGFR (non-black) mL/min/{1.73_m2} Normal >60 [facility] Comment on above: Result Comment: CALC ULATIONS OF ESTIMATED GFR ARE PERFORMED USING THE MDRD STUDY EQUATION FOR THE IDMS-TRACEABLE CREATININE METHODS. CLIN CHEM 2007;53:766-72 Performed By: #### B MP ####[facility] [place] [address] Glucose mass conc 66 mg/dL Low 74 - 99 [facility] Comment on above: Performed By: #### B MP ####[facility] [place] [address] Potassium molar conc 4.4 mmol/L Normal 3.5 - 5.3 [facility] Comment on above: Performed By: #### B MP ####[facility] [place] [address] Sodium 144 mmol/L Normal 136 - 145 [facility] Comment on above: Performed By: #### B MP ####[facility] [place] [address] Urea nitrogen 16 mg/dL Normal 6 - 23 [facility] Comment on above: Performed By: #### B MP ####[facility] [place] [address] C-REACTIVE PROTEINon 017 C reactive protein (CRP) 0.54 mg/dL Normal [facility] Comment on above: Result Comment: REF VALUE< 1.00 Performed By: #### C RP ####[facility] [place] [address] CBC AND DIFFERENTIALon 08-11 % AUTOMATED IMMATURE GRAN 0.6 % Normal 0.0 - 0.9 [facility] Comment on above: Result Comment: Perc ent differential counts (%) should be interpreted in the context of the absolute cell counts (cells/L). Performed By: #### C BCDF ####[facility] [place] [address] % NEUTROPHIL 56.6 % Normal 40.0 - 80.0 [facility] Comment on above: Performed By: #### C BCDF ####[facility] [place] [address] Basophils/100 WBC Auto (Bld) 0.04 x10E9/L Normal 0.00 - 0.10 [facility] Comment on above: Performed By: #### C BCDF ####[facility] [place] [address] Basophils/100 WBC Auto (Bld) 0.4 % Normal 0.0 - 2.0 [facility] Comment on above: Performed By: #### C BCDF ####[facility] [place] [address] Eosinophils 0.11 10*3/uL Normal 0.00 - 0.70 [facility] Comment on above: Performed By: #### C BCDF ####[facility] [place] [address] Eosinophils/100 leukocytes 1.2 % Normal 0.0 - 6.0 [facility] Comment on above: Performed By: #### C BCDF ####[facility] [place] [address] Erythrocyte distribution width Auto Ratio (RBC) 14.4 % Normal 11.5 - 14.5 [facility] Comment on above: Performed By: #### C BCDF ####[facility] [place] [address] Erythrocytes (RBC) 4.76 x10E12/L Normal 4.50 - 5.90 [facility] Comment on above: Performed By: #### C BCDF ####[facility] [place] [address] Hematocrit (HCT) 43.9 % Normal 41.0 - 52.0 [facility] Comment on above: Performed By: #### C BCDF ####[facility] [place] [address] Hemoglobin mass conc (Bld) 14.4 g/dL Normal 13.5 - 17.5 [facility] Comment on above: Performed By: #### C BCDF ####[facility] [place] [address] Lymphocytes 2.87 10*3/uL Normal 1.20 - 4.80 [facility] Comment on above: Performed By: #### C BCDF ####[facility] [place] [address] Lymphocytes/100 leukocytes 30.9 % Normal 13.0 - 44.0 [facility] Comment on above: Performed By: #### C BCDF ####[facility] [place] [address] MCHC mass conc (RBC) 32.8 g/dL Normal 32.0 - 36.0 [facility] Comment on above: Performed By: #### C BCDF ####[facility] [place] [address] MCV 92 fL Normal 80 - 100 [facility] Comment on above: Performed By: #### C BCDF ####[facility] [place] [address] Monocytes 0.96 10*3/uL Normal 0.10 - 1.00 [facility] Comment on above: Performed By: #### C BCDF ####[facility] [place] [address] Monocytes/100 leukocytes 10.3 % High 2.0 - 10.0 [facility] Comment on above: Performed By: #### C BCDF ####[facility] [place] [address] Neutrophils 5.24 10*3/uL Normal 1.20 - 7.70 [facility] Comment on above: Performed By: #### C BCDF ####[facility] [place] [address] Nucleated erythrocytes 0.0 /100 WBC Normal 0.0-0.0 [facility] Comment on above: Performed By: #### C BCDF ####[facility] [place] [address] Platelets 213 10*3/uL Normal 150 - 450 [facility] Comment on above: Performed By: #### C BCDF ####[facility] [place] [address] WBC (Leukocytes) 9.3 10*3/uL Normal 4.4 - 11.3 [facility] Comment on above: Performed By: #### C BCDF ####[facility] [place] [address] ESR-WESTERGRENon 08-11-2017 ESR-WESTERGREN 10 mm/h Normal 0 - 20 [facility] Comment on above: Performed By: #### E SRWS ####[facility] [place] [address] HEPATIC FUNCTION PANELon Alanine aminotransferase (ALT) 27 U/L Normal 10 - 52 [facility] Comment on above: Result Comment: Vanda ents treated with Sulfasalazine may generate falsely decreased results for ALT. Performed By: #### H EPFP ####[facility] [place] [address] Albumin 3.9 g/dL Normal 3.4 - 5.0 [facility] Comment on above: Performed By: #### H EPFP ####[facility] [place] [address] Alkaline phosphatase (ALP) 67 U/L Normal 33 - 120 [facility] Comment on above: Performed By: #### H EPFP ####[facility] [place] [address] Aspartate aminotransferase (AST) 19 U/L Normal 9 - 39 [facility] Comment on above: Performed By: #### H EPFP ####[facility] [place] [address] Bilirubin (direct) 0.1 mg/dL Normal 0.0 - 0.3 [facility] Comment on above: Performed By: #### H EPFP ####[facility] [place] [address] Bilirubin (total) 0.3 mg/dL Normal 0.0 - 1.2 [facility] Comment on above: Performed By: #### H EPFP ####[facility] [place] [address] Protein 6.8 g/dL Normal 6.4 - 8.2 [facility] Comment on above: Performed By: #### H EPFP ####[facility] [place] [address] URIC ACIDon 08-11-2017 Urate 8.9 mg/dL High 4.0 - 7.5 [facility] Comment on above: Result Comment: Sondra puncture immediately after or during the administration of Metamizole may lead to falsely low results. Testing should be performed immediately prior to Metamizole dosing. Performed By: #### U GERMÁN ####[facility] [place] [address] Vital Signs Date Time Vital Sign Value Performing Clinician Facility 04-03-2024 15:45-0400 Body mass index (BMI) [Ratio] 31.83 kg/m2 Rere Valentino APRN.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 Work Phone: [facility] 04-03-2024 15:45-0400 Body temperature 97.39 [degF] Rere Valentino APRN.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 Work Phone: [facility] 04-03-2024 15:45-0400 Body weight 115.5 kg Rere Valentino APRN.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 Work Phone: [facility] 04-03-2024 15:45-0400 Diastolic blood pressure 84 mm[Hg] Rere Valentino APRN.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 Work Phone: [facility] 04-03-2024 15:45-0400 Heart rate 74 /min Rere Valentino APRN.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 Work Phone: [facility] 04-03-2024 15:45-0400 SaO2% (BldA) [Mass fraction] 99 % Rere Valentino APRN.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 Work Phone: [facility] 04-03-2024 15:45-0400 Systolic blood pressure 148 mm[Hg] Rere Valentino APRN.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 Work Phone: [facility] 03-21-2024 13:32-0400 Body temperature 98.3 [degF] Dr. Rere Aguiar Work Phone: [facility] 03-21-2024 13:32-0400 Diastolic blood pressure 92 mm[Hg] Dr. Rere Aguiar Work Phone: [facility] 03-21-2024 13:32-0400 Heart rate 79 /min Dr. Rere Aguiar Work Phone: [facility] 03-21-2024 13:32-0400 Respiratory rate 17 /min Dr. Rere Aguiar Work Phone: [facility] 03-21-2024 13:32-0400 SaO2% (BldA) [Mass fraction] 100 % Dr. Rere Aguiar Work Phone: [facility] 03-21-2024 13:32-0400 Systolic blood pressure 171 mm[Hg] Dr. eRre Aguiar Work Phone: [facility] 03-21-2024 12:05-0400 Body height 187.[address] Rere Aguiar Work Phone: [facility] 03-21-2024 12:05-0400 Body mass index (BMI) [Ratio] 33.2 kg/m2 Dr. Rere Aguiar Work Phone: [facility] 03-21-2024 12:05-0400 Body weight 117.[address] Rere Aguiar Work Phone: [facility] 03-15-2024 09:19-0400 Diastolic blood pressure 90 mm[Hg] Rere Valentino APRN.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 Work Phone: [facility] 03-15-2024 09:19-0400 Heart rate 67 /min Rere Valentino APRN.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 Work Phone: [facility] 03-15-2024 09:19-0400 Systolic blood pressure 156 mm[Hg] Rere Valentino APRN.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 Work Phone: [facility] 03-15-2024 08:11-0400 Body temperature 98.29 [degF] Rere Valentino APRN.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 Work Phone: [facility] 03-15-2024 08:11-0400 Body weight 116.35 kg Rere Valentino APRN.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 Work Phone: [facility] 03-15-2024 08:11-0400 SaO2% (BldA) [Mass fraction] 100 % Rere Valentino APRN.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 Work Phone: [facility] 03-14-2024 12:50-0400 Body height 190.5 cm Peggy Hunter MD Work Phone: [facility] 03-14-2024 12:50-0400 Body weight 115.98 kg Peggy Hunter MD Work Phone: [facility] 03-14-2024 12:50-0400 Diastolic blood pressure 92 mm[Hg] Peggy Hunter MD Work Phone: [facility] 03-14-2024 12:50-0400 Heart rate 64 /min Peggy Hunter MD Work Phone: [facility] 03-14-2024 12:50-0400 SaO2% (BldA) [Mass fraction] 100 % Peggy Hunter MD Work Phone: [facility] 03-14-2024 12:50-0400 Systolic blood pressure 145 mm[Hg] Peggy Hunter MD Work Phone: [facility] 02-02-2024 10:25-0500 Body temperature 97.39 [degF] Rere Valentino APRN.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 Work Phone: [facility] 02-02-2024 10:25-0500 Body weight 109.55 kg Rere Valentino APRN.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 Work Phone: [facility] 02-02-2024 10:25-0500 Diastolic blood pressure 89 mm[Hg] Rere Valentino APRN.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 Work Phone: [facility] 02-02-2024 10:25-0500 Heart rate 79 /min Rere Valentino APRN.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 Work Phone: [facility] 02-02-2024 10:25-0500 SaO2% (BldA) [Mass fraction] 100 % Rere Valentino APRN.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 Work Phone: [facility] 02-02-2024 10:25-0500 Systolic blood pressure 146 mm[Hg] Rere Valentino APRN.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 Work Phone: [facility] 12-20-2023 03:08-0500 Diastolic blood pressure 84 mm[Hg] Dr. Rere Aguiar Work Phone: [facility] 12-20-2023 03:08-0500 Heart rate 91 /min Dr. Rere Aguiar Work Phone: [facility] 12-20-2023 03:08-0500 Respiratory rate 16 /min Dr. Rere Aguiar Work Phone: [facility] 12-20-2023 03:08-0500 SaO2% (BldA) [Mass fraction] 99 % Dr. Rere Aguiar Work Phone: [facility] 12-20-2023 03:08-0500 Systolic blood pressure 141 mm[Hg] Dr. Rere Aguiar Work Phone: [facility] 12-20-2023 02:05-0500 Body temperature 98.3 [degF] Dr. Rere Aguiar Work Phone: [facility] 12-20-2023 02:02-0500 Body mass index (BMI) [Ratio] 32.3 kg/m2 Dr. Rere Aguair Work Phone: [facility] 12-20-2023 02:02-0500 Body weight 114.[address] Rere Aguiar Work Phone: [facility] 11-29-2023 08:58-0500 Body temperature 98.2 [degF] Dr. Rere Aguiar Work Phone: [facility] 11-29-2023 08:58-0500 Diastolic blood pressure 104 mm[Hg] Dr. Rere Aguiar Work Phone: [facility] 11-29-2023 08:58-0500 Heart rate 87 /min Dr. Rere Aguiar Work Phone: [facility] 11-29-2023 08:58-0500 Respiratory rate 16 /min Dr. Rere Aguiar Work Phone: [facility] 11-29-2023 08:58-0500 SaO2% (BldA) [Mass fraction] 100 % Dr. Rere Aguiar Work Phone: [facility] 11-29-2023 08:58-0500 Systolic blood pressure 154 mm[Hg] Dr. Rere Aguiar Work Phone: [facility] 11-29-2023 00:30-0500 Body mass index (BMI) [Ratio] 30.1 kg/m2 Dr. Rere Aguiar Work Phone: [facility] 11-29-2023 00:30-0500 Body weight 109.[address] Rere Aguiar Work Phone: [facility] 11-26-2023 14:54-0500 Body height 190.[address] Rere Aguiar Work Phone: [facility] 11-26-2023 13:01-0500 Diastolic blood pressure 74 mm[Hg] [facility] 11-26-2023 13:01-0500 Heart rate 78 /min [facility] 11-26-2023 13:01-0500 Respiratory rate 18 /min [facility] 11-26-2023 13:01-0500 SaO2% (BldA) [Mass fraction] 98 % [facility] 11-26-2023 13:01-0500 Systolic blood pressure 160 mm[Hg] [facility] 11-26-2023 05:45-0500 Body height 190.5 cm [facility] 11-26-2023 05:45-0500 Body mass index (BMI) [Ratio] 31.4 kg/m2 [facility] 11-26-2023 05:45-0500 Body temperature 99.7 [degF] [facility] 11-26-2023 05:45-0500 Body weight 113.9 kg [facility] 08-03-2023 08:49-0400 Diastolic blood pressure 69 mm[Hg] [facility] 08-03-2023 08:49-0400 Heart rate 72 /min [facility] 08-03-2023 08:49-0400 Respiratory rate 15 /min [facility] 08-03-2023 08:49-0400 SaO2% (BldA) [Mass fraction] 98 % [facility] 08-03-2023 08:49-0400 Systolic blood pressure 124 mm[Hg] [facility] 08-03-2023 07:54-0400 Body height 190.5 cm [facility] 08-03-2023 07:54-0400 Body mass index (BMI) [Ratio] 35.2 kg/m2 [facility] 08-03-2023 07:54-0400 Body temperature 97.3 [degF] [facility] 08-03-2023 07:54-0400 Body weight 127.91 kg [facility] 07-29-2023 13:18-0400 Body height 190.5 cm [facility] 07-29-2023 13:18-0400 Body mass index (BMI) [Ratio] 33.7 kg/m2 [facility] 07-29-2023 13:18-0400 Body temperature 97.1 [degF] [facility] 07-29-2023 13:18-0400 Body weight 122.46 kg [facility] 07-29-2023 13:18-0400 Diastolic blood pressure 93 mm[Hg] [facility] 07-29-2023 13:18-0400 Heart rate 107 /min [facility] 07-29-2023 13:18-0400 Respiratory rate 18 /min [facility] 07-29-2023 13:18-0400 SaO2% (BldA) [Mass fraction] 97 % [facility] 07-29-2023 13:18-0400 Systolic blood pressure 163 mm[Hg] [facility] 06-08-2023 09:12-0400 Body height 190.5 cm [facility] 06-08-2023 09:12-0400 Body mass index (BMI) [Ratio] 32.8 kg/m2 [facility] 06-08-2023 09:12-0400 Body temperature 97 [degF] [facility] 06-08-2023 09:12-0400 Body weight 118.93 kg [facility] 06-08-2023 09:12-0400 Diastolic blood pressure 93 mm[Hg] [facility] 06-08-2023 09:12-0400 Heart rate 107 /min [facility] 06-08-2023 09:12-0400 Respiratory rate 18 /min [facility] 06-08-2023 09:12-0400 SaO2% (BldA) [Mass fraction] 97 % [facility] 06-08-2023 09:12-0400 Systolic blood pressure 173 mm[Hg] [facility] 05-15-2023 06:33-0400 Body height 190.5 cm [facility] 05-15-2023 06:33-0400 Body mass index (BMI) [Ratio] 32.2 kg/m2 [facility] 05-15-2023 06:33-0400 Body temperature 97 [degF] [facility] 05-15-2023 06:33-0400 Body weight 117 kg [facility] 05-15-2023 06:33-0400 Diastolic blood pressure 103 mm[Hg] [facility] 05-15-2023 06:33-0400 Heart rate 109 /min [facility] 05-15-2023 06:33-0400 Respiratory rate 16 /min [facility] 05-15-2023 06:33-0400 SaO2% (BldA) [Mass fraction] 99 % [facility] 05-15-2023 06:33-0400 Systolic blood pressure 160 mm[Hg] [facility] 05-06-2023 20:31-0400 Body height 190.5 cm [facility] 05-06-2023 20:31-0400 Body mass index (BMI) [Ratio] 32.8 kg/m2 [facility] 05-06-2023 20:31-0400 Body temperature 98.8 [degF] [facility] 05-06-2023 20:31-0400 Body weight 118.97 kg [facility] 05-06-2023 20:31-0400 Diastolic blood pressure 96 mm[Hg] [facility] 05-06-2023 20:31-0400 Heart rate 80 /min [facility] 05-06-2023 20:31-0400 Respiratory rate 16 /min [facility] 05-06-2023 20:31-0400 SaO2% (BldA) [Mass fraction] 96 % [facility] 05-06-2023 20:31-0400 Systolic blood pressure 144 mm[Hg] [facility] 04-28-2023 15:18-0400 Diastolic blood pressure 97 mm[Hg] [facility] 04-28-2023 15:18-0400 Systolic blood pressure 167 mm[Hg] [facility] 04-28-2023 14:13-0400 Body height 190.5 cm [facility] 04-28-2023 14:13-0400 Body mass index (BMI) [Ratio] 32.6 kg/m2 [facility] 04-28-2023 14:13-0400 Body temperature 98 [degF] [facility] 04-28-2023 14:13-0400 Body weight 118.5 kg [facility] 04-28-2023 14:13-0400 Heart rate 84 /min [facility] 04-28-2023 14:13-0400 Respiratory rate 16 /min [facility] 04-28-2023 14:13-0400 SaO2% (BldA) [Mass fraction] 99 % [facility] 04-28-2023 14:04-0400 Body temperature 98.2 [degF] Niyah Bui APRN.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 Work Phone: [facility] 04-28-2023 14:04-0400 Body weight 118.03 kg Niyah Bui APRN.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 Work Phone: [facility] 04-28-2023 14:04-0400 Diastolic blood pressure 88 mm[Hg] Niyah Bui APRN.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 Work Phone: [facility] 04-28-2023 14:04-0400 Heart rate 98 /min Niyah Bui APRN.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 Work Phone: [facility] 04-28-2023 14:04-0400 Respiratory rate 18 /min Niyah Bui APRN.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 Work Phone: [facility] 04-28-2023 14:04-0400 SaO2% (BldA) [Mass fraction] 97 % Niyah Bui APRN.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 Work Phone: [facility] 04-28-2023 14:04-0400 Systolic blood pressure 146 mm[Hg] Niyah Bui APRN.ANTHONY Work Phone: [facility] 04-21-2023 03:03-0400 Body mass index (BMI) [Ratio] 32.8 kg/m2 [facility] 04-21-2023 03:03-0400 Body temperature 98.1 [degF] [facility] 04-21-2023 03:03-0400 Body weight 119.3 kg [facility] 04-21-2023 03:03-0400 Diastolic blood pressure 86 mm[Hg] [facility] 04-21-2023 03:03-0400 Heart rate 64 /min [facility] 04-21-2023 03:03-0400 Respiratory rate 15 /min [facility] 04-21-2023 03:03-0400 SaO2% (BldA) [Mass fraction] 100 % [facility] 04-21-2023 03:03-0400 Systolic blood pressure 159 mm[Hg] [facility] 04-14-2023 18:49-0400 Body mass index (BMI) [Ratio] 35.6 kg/m2 [facility] 04-14-2023 18:49-0400 Body temperature 97.8 [degF] [facility] 04-14-2023 18:49-0400 Body weight 129.27 kg [facility] 04-14-2023 18:49-0400 Diastolic blood pressure 97 mm[Hg] [facility] 04-14-2023 18:49-0400 Heart rate 78 /min [facility] 04-14-2023 18:49-0400 Respiratory rate 16 /min [facility] 04-14-2023 18:49-0400 SaO2% (BldA) [Mass fraction] 98 % [facility] 04-14-2023 18:49-0400 Systolic blood pressure 152 mm[Hg] [facility] 03-18-2023 11:23-0400 Respiratory rate 18 /min [facility] 03-18-2023 09:33-0400 Body height 190.5 cm [facility] 03-18-2023 09:33-0400 Body mass index (BMI) [Ratio] 35.2 kg/m2 [facility] 03-18-2023 09:33-0400 Body temperature 97.6 [degF] [facility] 03-18-2023 09:33-0400 Body weight 127.91 kg [facility] 03-18-2023 09:33-0400 Diastolic blood pressure 87 mm[Hg] [facility] 03-18-2023 09:33-0400 Heart rate 88 /min [facility] 03-18-2023 09:33-0400 SaO2% (BldA) [Mass fraction] 100 % [facility] 03-18-2023 09:33-0400 Systolic blood pressure 152 mm[Hg] [facility] 03-01-2023 13:55-0400 Body height 187.96 cm [facility] 03-01-2023 13:55-0400 Body temperature 97 [degF] [facility] 03-01-2023 13:55-0400 Diastolic blood pressure 105 mm[Hg] [facility] 03-01-2023 13:55-0400 Heart rate 86 /min [facility] 03-01-2023 13:55-0400 Respiratory rate 14 /min [facility] 03-01-2023 13:55-0400 SaO2% (BldA) [Mass fraction] 96 % [facility] 03-01-2023 13:55-0400 Systolic blood pressure 162 mm[Hg] [facility] 01-26-2023 09:19-0500 Body height 190.5 cm [facility] 01-26-2023 09:19-0500 Body mass index (BMI) [Ratio] 33.3 kg/m2 [facility] 01-26-2023 09:19-0500 Body temperature 98 [degF] [facility] 01-26-2023 09:19-0500 Body weight 121.15 kg [facility] 01-26-2023 09:19-0500 Diastolic blood pressure 97 mm[Hg] [facility] 01-26-2023 09:19-0500 Heart rate 70 /min [facility] 01-26-2023 09:19-0500 Respiratory rate 18 /min [facility] 01-26-2023 09:19-0500 SaO2% (BldA) [Mass fraction] 100 % [facility] 01-26-2023 09:19-0500 Systolic blood pressure 164 mm[Hg] [facility] 12-27-2022 12:46-0500 Body height 190.5 cm [facility] 12-27-2022 12:46-0500 Body mass index (BMI) [Ratio] 34.9 kg/m2 [facility] 12-27-2022 12:46-0500 Body temperature 98 [degF] [facility] 12-27-2022 12:46-0500 Body weight 127 kg [facility] 12-27-2022 12:46-0500 Diastolic blood pressure 91 mm[Hg] [facility] 12-27-2022 12:46-0500 Heart rate 90 /min [facility] 12-27-2022 12:46-0500 Respiratory rate 16 /min [facility] 12-27-2022 12:46-0500 SaO2% (BldA) [Mass fraction] 99 % [facility] 12-27-2022 12:46-0500 Systolic blood pressure 164 mm[Hg] [facility] 12-25-2022 08:45-0500 Body height 190.5 cm [facility] 12-25-2022 08:45-0500 Body mass index (BMI) [Ratio] 34.9 kg/m2 [facility] 12-25-2022 08:45-0500 Body temperature 97.8 [degF] [facility] 12-25-2022 08:45-0500 Body weight 127 kg [facility] 12-25-2022 08:45-0500 Diastolic blood pressure 78 mm[Hg] [facility] 12-25-2022 08:45-0500 Heart rate 78 /min [facility] 12-25-2022 08:45-0500 Respiratory rate 16 /min [facility] 12-25-2022 08:45-0500 SaO2% (BldA) [Mass fraction] 99 % [facility] 12-25-2022 08:45-0500 Systolic blood pressure 138 mm[Hg] [facility] 11-22-2022 16:04-0500 Body height 190.5 cm [facility] Work Phone: 11-22-2022 16:04-0500 Body mass index (BMI) [Ratio] 34.3 kg/m2 [facility] 11-22-2022 16:04-0500 Body temperature 98.8 [degF] [facility] 11-22-2022 16:04-0500 Body weight 124.73 kg [facility] 11-22-2022 16:04-0500 Diastolic blood pressure 106 mm[Hg] [facility] 11-22-2022 16:04-0500 Heart rate 88 /min [facility] 11-22-2022 16:04-0500 Respiratory rate 15 /min [facility] 11-22-2022 16:04-0500 SaO2% (BldA) [Mass fraction] 99 % [facility] 11-22-2022 16:04-0500 Systolic blood pressure 175 mm[Hg] [facility] 10-27-2022 03:23-0500 Diastolic blood pressure 90 mm[Hg] [facility] 10-27-2022 03:23-0500 Heart rate 74 /min [facility] 10-27-2022 03:23-0500 Respiratory rate 16 /min [facility] 10-27-2022 03:23-0500 Systolic blood pressure 165 mm[Hg] [facility] 10-27-2022 03:01-0500 Body height 190.5 cm [facility] Work Phone: 10-27-2022 03:01-0500 Body mass index (BMI) [Ratio] 31.8 kg/m2 [facility] 10-27-2022 03:01-0500 Body temperature 98.4 [degF] [facility] 10-27-2022 03:01-0500 Body weight 115.5 kg [facility] 10-27-2022 03:01-0500 SaO2% (BldA) [Mass fraction] 97 % [facility] 10-23-2022 13:32-0500 Body mass index (BMI) [Ratio] 33.7 kg/m2 [facility] 10-23-2022 13:32-0500 Body temperature 97.8 [degF] [facility] 10-23-2022 13:32-0500 Body weight 122.46 kg [facility] 10-23-2022 13:32-0500 Diastolic blood pressure 76 mm[Hg] [facility] 10-23-2022 13:32-0500 Heart rate 78 /min [facility] 10-23-2022 13:32-0500 Respiratory rate 16 /min [facility] 10-23-2022 13:32-0500 SaO2% (BldA) [Mass fraction] 100 % [facility] 10-23-2022 13:32-0500 Systolic blood pressure 133 mm[Hg] [facility] 10-14-2022 01:19-0500 Body height 190.5 cm [facility] Work Phone: 10-14-2022 01:19-0500 Body mass index (BMI) [Ratio] 32 kg/m2 [facility] 10-14-2022 01:19-0500 Body temperature 97.7 [degF] [facility] 10-14-2022 01:19-0500 Body weight 116.3 kg [facility] 10-14-2022 01:19-0500 Diastolic blood pressure 97 mm[Hg] [facility] 10-14-2022 01:19-0500 Heart rate 69 /min [facility] 10-14-2022 01:19-0500 Respiratory rate 18 /min [facility] 10-14-2022 01:19-0500 SaO2% (BldA) [Mass fraction] 100 % [facility] 10-14-2022 01:19-0500 Systolic blood pressure 172 mm[Hg] [facility] 10-13-2022 11:20-0500 Body mass index (BMI) [Ratio] 33.7 kg/m2 [facility] 10-13-2022 11:20-0500 Body temperature 97.8 [degF] [facility] 10-13-2022 11:20-0500 Body weight 122.46 kg [facility] 10-13-2022 11:20-0500 Diastolic blood pressure 110 mm[Hg] [facility] 10-13-2022 11:20-0500 Heart rate 69 /min [facility] 10-13-2022 11:20-0500 Respiratory rate 16 /min [facility] 10-13-2022 11:20-0500 SaO2% (BldA) [Mass fraction] 100 % [facility] 10-13-2022 11:20-0500 Systolic blood pressure 179 mm[Hg] [facility] 09-15-2022 10:26-0400 Diastolic blood pressure 132 mm[Hg] [facility] 09-15-2022 10:26-0400 Systolic blood pressure 174 mm[Hg] [facility] 09-15-2022 09:14-0400 Body height 190.5 cm [facility] Work Phone: 09-15-2022 09:14-0400 Body mass index (BMI) [Ratio] 31.7 kg/m2 [facility] 09-15-2022 09:14-0400 Body temperature 97 [degF] [facility] 09-15-2022 09:14-0400 Body weight 115.2 kg [facility] 09-15-2022 09:14-0400 Heart rate 78 /min [facility] 09-15-2022 09:14-0400 Respiratory rate 14 /min [facility] 09-15-2022 09:14-0400 SaO2% (BldA) [Mass fraction] 98 % [facility] 08-29-2022 12:52-0400 Diastolic blood pressure 88 mm[Hg] [facility] 08-29-2022 12:52-0400 Heart rate 71 /min [facility] 08-29-2022 12:52-0400 Respiratory rate 16 /min [facility] 08-29-2022 12:52-0400 SaO2% (BldA) [Mass fraction] 99 % [facility] 08-29-2022 12:52-0400 Systolic blood pressure 129 mm[Hg] [facility] 08-29-2022 10:44-0400 Body height 190.5 cm [facility] Work Phone: 08-29-2022 10:44-0400 Body mass index (BMI) [Ratio] 30.9 kg/m2 [facility] 08-29-2022 10:44-0400 Body temperature 98.2 [degF] [facility] 08-29-2022 10:44-0400 Body weight 112.12 kg [facility] 04-04-2022 17:10-0400 Body height 190.5 cm [facility] Work Phone: 04-04-2022 17:10-0400 Body mass index (BMI) [Ratio] 37.5 kg/m2 [facility] Work Phone: 04-04-2022 17:10-0400 Body temperature 98.3 [degF] [facility] Work Phone: 04-04-2022 17:10-0400 Body weight 136.07 kg [facility] Work Phone: 04-04-2022 17:10-0400 Diastolic blood pressure 105 mm[Hg] [facility] Work Phone: 04-04-2022 17:10-0400 Heart rate 88 /min [facility] Work Phone: 04-04-2022 17:10-0400 Respiratory rate 16 /min [facility] Work Phone: 04-04-2022 17:10-0400 SaO2% (BldA) [Mass fraction] 97 % [facility] Work Phone: 04-04-2022 17:10-0400 Systolic blood pressure 177 mm[Hg] [facility] Work Phone: 04-01-2022 20:10-0400 Body height 190.5 cm [facility] Work Phone: 04-01-2022 20:10-0400 Body mass index (BMI) [Ratio] 37.5 kg/m2 [facility] Work Phone: 04-01-2022 20:10-0400 Body temperature 98.7 [degF] [facility] Work Phone: 04-01-2022 20:10-0400 Body weight 136.07 kg [facility] Work Phone: 04-01-2022 20:10-0400 Diastolic blood pressure 99 mm[Hg] [facility] Work Phone: 04-01-2022 20:10-0400 Heart rate 69 /min [facility] Work Phone: 04-01-2022 20:10-0400 Respiratory rate 17 /min [facility] Work Phone: 04-01-2022 20:10-0400 SaO2% (BldA) [Mass fraction] 99 % [facility] Work Phone: 04-01-2022 20:10-0400 Systolic blood pressure 180 mm[Hg] [facility] Work Phone: 03-14-2022 15:58-0400 Body temperature 98.9 [degF] [facility] Work Phone: 03-14-2022 15:58-0400 Diastolic blood pressure 91 mm[Hg] [facility] Work Phone: 03-14-2022 15:58-0400 Heart rate 73 /min [facility] Work Phone: 03-14-2022 15:58-0400 Respiratory rate 18 /min [facility] Work Phone: 03-14-2022 15:58-0400 SaO2% (BldA) [Mass fraction] 99 % [facility] Work Phone: 03-14-2022 15:58-0400 Systolic blood pressure 175 mm[Hg] [facility] Work Phone: 03-14-2022 15:00-0400 Body mass index (BMI) [Ratio] 32.1 kg/m2 [facility] Work Phone: 03-14-2022 15:00-0400 Body weight 116.7 kg [facility] Work Phone: 03-14-2022 03:55-0400 Body height 190.5 cm [facility] Work Phone: 03-14-2022 03:55-0400 Body mass index (BMI) [Ratio] 37.5 kg/m2 [facility] Work Phone: 03-14-2022 03:55-0400 Body temperature 98.5 [degF] [facility] Work Phone: 03-14-2022 03:55-0400 Body weight 136.07 kg [facility] Work Phone: 02-23-2022 14:33-0400 SaO2% (BldA) [Mass fraction] 98 % [facility] Work Phone: 02-23-2022 13:25-0400 Body height 190.5 cm [facility] Work Phone: 02-23-2022 13:25-0400 Body mass index (BMI) [Ratio] 36.2 kg/m2 [facility] Work Phone: 02-23-2022 13:25-0400 Body temperature 97.2 [degF] [facility] Work Phone: 02-23-2022 13:25-0400 Body weight 131.54 kg [facility] Work Phone: 02-23-2022 13:25-0400 Diastolic blood pressure 103 mm[Hg] [facility] Work Phone: 02-23-2022 13:25-0400 Heart rate 94 /min [facility] Work Phone: 02-23-2022 13:25-0400 Respiratory rate 14 /min [facility] Work Phone: 02-23-2022 13:25-0400 Systolic blood pressure 164 mm[Hg] [facility] Work Phone: 02-09-2022 16:15-0400 Diastolic blood pressure 105 mm[Hg] [facility] Work Phone: 02-09-2022 16:15-0400 Systolic blood pressure 176 mm[Hg] [facility] Work Phone: 02-09-2022 15:00-0400 Heart rate 87 /min [facility] Work Phone: 02-09-2022 15:00-0400 Respiratory rate 12 /min [facility] Work Phone: 02-09-2022 15:00-0400 SaO2% (BldA) [Mass fraction] 99 % [facility] Work Phone: 02-09-2022 13:42-0400 Body mass index (BMI) [Ratio] 37.5 kg/m2 [facility] Work Phone: 02-09-2022 13:42-0400 Body temperature 97.9 [degF] [facility] Work Phone: 02-09-2022 13:42-0400 Body weight 136.07 kg [facility] Work Phone: 11-18-2021 09:03-0500 Body mass index (BMI) [Ratio] 34.9 kg/m2 [facility] Work Phone: 11-18-2021 09:03-0500 Body temperature 97.5 [degF] [facility] Work Phone: 11-18-2021 09:03-0500 Body weight 127 kg [facility] Work Phone: 11-18-2021 09:03-0500 Diastolic blood pressure 85 mm[Hg] [facility] Work Phone: 11-18-2021 09:03-0500 Heart rate 92 /min [facility] Work Phone: 11-18-2021 09:03-0500 Respiratory rate 16 /min [facility] Work Phone: 11-18-2021 09:03-0500 SaO2% (BldA) [Mass fraction] 100 % [facility] Work Phone: 11-18-2021 09:03-0500 Systolic blood pressure 174 mm[Hg] [facility] Work Phone: Encounters Encounter Date Encounter Type Care Provider Facility Start: 04-24-2025 End: 04-24-2025 Refill Rere Valentino ASSISTANT EDITOR.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 Work Phone: Rheumatology Comment on above: Refill Request Start: 02-07-2025 End: 02-07-2025 Refill Malik Mera ASSISTANT EDITOR.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 Work Phone: Rheumatology Comment on above: Refill Request Start: 09-20-2024 End: 09-20-2024 Telephone encounter Maci Dorsey DO Work Phone: Orthopaedics Comment on above: Patient Update Start: 05-29-2024 End: 05-29-2024 ambulatory MALIK MERA Facility:[facility] Start: 05-16-2024 End: 05-16-2024 ambulatory LUIS MIGUEL RHODES Facility:[facility] Start: 05-16-2024 End: 05-16-2024 Office outpatient new 45 minutes Luis Miguel Rhodes MD Work Phone: Orthopaedics Comment on above: Intramuscular lipoma (Primary Dx); Lipoma of right upper extremity; Localized swelling, mass and lump, trunk Start: 05-11-2024 End: 05-11-2024 Patient encounter procedure Maci Dorsey DO Work Phone: Orthopaedics Comment on above: Lipoma, unspecified site (Primary Dx) Start: 05-11-2024 End: 05-11-2024 ambulatory MYNORALICIA DORSEY Facility:[facility] Start: 05-11-2024 End: 05-11-2024 Subsequent hospital visit by physician [facility] Work Phone: Radiology Comment on above: Right shoulder pain, unspecified chronicity [M25.511] Start: 05-02-2024 Orders Only Maci poole DO Work Phone: Orthopaedics Comment on above: Right shoulder pain, unspecified chronicity (Primary Dx) Medication Problem Start: 04-25-2024 Telephone encounter Peggy Hunter MD Work Phone: General Surgery Comment on above: Appointment (Ortho) Start: 04-22-2024 Telephone encounter Peggy Hunter MD Work Phone: [place] Provider Adult Comment on above: Results Start: 04-21-2024 ambulatory [facility]ERE [facility]ULIDO [facility] Start: 04-21-2024 End: 04-21-2024 Subsequent hospital visit by physician Mri [facility] (1.5t) Radiology Comment on above: Neck mass [R22.1] Start: 04-03-2024 End: 04-03-2024 ambulatory RERE AGUIAR Facility:[facility] Start: 04-03-2024 End: 04-03-2024 Patient encounter procedure Rere Valentino ASSISTANT EDITOR.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 Work Phone: Rheumatology Comment on above: Gout with manifestat ions (Primary Dx); Chronic pain of both knees; Vitamin D deficiency; Hyperuricemia Start: 04-03-2024 Telephone encounter Rere reeder ASSISTANT EDITOR.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 Work Phone: Rheumatology Start: 04-03-2024 End: 04-03-2024 ambulatory RERE AGUIAR Facility:[facility] Start: 03-22-2024 Telephone encounter Rere reeder ASSISTANT EDITOR.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 Work Phone: Rheumatology Comment on above: Medication Problem Start: 03-21-2024 End: 03-21-2024 Emergency department patient visit Idris Capellan Facility:[facility] Start: 03-21-2024 End: 03-21-2024 Emergency department patient visit Dr. Rere Aguiar Work Phone: [facility]Emergency [facility] Work Phone: Start: 03-15-2024 Telephone encounter Rere reeder ASSISTANT EDITOR.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 Work Phone: Rheumatology Comment on above: prior authorization Patient Update Start: 03-15-2024 End: 03-15-2024 ambulatory RERE AGUIAR Facility:[facility] Start: 03-15-2024 End: 03-15-2024 Patient encounter procedure Rere Valentino ASSISTANT EDITOR.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 Work Phone: Rheumatology Comment on above: Gout with manifestat ions (Primary Dx); Vitamin D deficiency; Chronic pain of both ankles; Chronic pain of both knees Start: 03-14-2024 End: 03-14-2024 ambulatory RERE AGUIAR Facility:[facility] Start: 03-14-2024 End: 03-14-2024 Patient encounter procedure Peggy Hunter MD Work Phone: General Surgery Comment on above: Neck mass (Primary D x) Start: 03-13-2024 Telephone encounter Rere reeder ASSISTANT EDITOR.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 Work Phone: Rheumatology Comment on above: Patient Update (FYI Only, Knee Pain) Start: 03-13-2024 ambulatory Health Risk Assessment Facility:[facility] Start: 03-13-[address] Rere mckeon Work Phone: [facility] Start: 03-13-[address] Rere hernandez Work Phone: [facility] Start: 03-06-2024 End: 03-06-2024 ambulatory RERE AGUIAR Facility:[facility] Start: 02-26-2024 Telephone encounter Rere reeder ASSISTANT EDITOR.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 Work Phone: Rheumatology Comment on above: Results Start: 02-09-2024 ambulatory RERE AGUIAR Fac ility:[facility] Start: 02-09-2024 End: 02-09-2024 Subsequent hospital visit by physician [facility] Radiology Comment on above: Chronic pain of both knees [M25.561, M25.562, G89.29] Start: 02-04-2024 Telephone encounter Rere reeder APRN.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 Work Phone: Rheumatology Comment on above: Appointment (? error with scheduling -- pt seen on 02/01 - return 1 mth for repeat labs -- CT is scheduled for 02/08) Start: 02-02-2024 Telephone encounter Rere reeder APRN.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 Work Phone: Rheumatology Comment on above: Results Start: 02-02-2024 End: 02-02-[facility] Start: 02-02-2024 End: 02-02-2024 [facility] Start: 02-02-2024 End: 02-02-2024 Patient encounter procedure Rere Valentino APRN.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 Work Phone: Rheumatology Comment on above: Hyperuricemia (Prima ry Dx); Joint swelling; Vitamin D deficiency; Pain in joint, multiple sites Start: 01-31-2024 End: 01-31-2024 [facility] Start: 01-31-2024 End: 01-31-2024 Subsequent hospital visit by physician [facility] Rej Work Phone: Radiology Comment on above: Pain in joint, multi ple sites [M25.50] Start: 01-20-2024 Telephone encounter Rere reeder APRN.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 Work Phone: Rheumatology Start: 01-17-2024 Telephone encounter Rere reeder ASSISTANT EDITOR.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 Work Phone: Rheumatology Comment on above: Patient Question Start: 01-07-2024 Telephone encounter Mitch Reddy ( Coord) Radiology Comment on above: Appointment Start: 01-04-2024 Telephone encounter Rere reeder APRN.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 Work Phone: Rheumatology Comment on above: Results; Medication Problem (Rx Sent to Wrong Pharmacy) Start: 12-27-2023 End: 12-27-2023 ambulatory RERE AGUIAR Facility:[facility] Start: 12-20-2023 End: 12-20-2023 Emergency department patient visit Dr. Rere Aguiar Work Phone: [facility]Emergency Department Work Phone: Start: 11-29-2023 Non-patient / Non-visit Dr. Madeline Aguiar Work Phone: [facility] Work Phone: Start: 11-28-2023 Non-patient / Non-visit Dr. Madeline Aguiar Work Phone: [facility] Work Phone: Start: 11-27-2023 Non-patient / Non-visit Dr. Madeline Aguiar Work Phone: [facility] Work Phone: Start: 11-26-2023 End: 11-29-2023 ambulatory Wayne Friend Facility:[facility] Start: 11-26-2023 End: 11-29-2023 Evaluation and management of inpatient [facility] 3 Work Phone: Start: 11-26-2023 End: 11-29-[address] Rere Aguiar Work Phone: [facility] [facility] Work Phone: Start: 08-03-2023 End: 08-03-2023 Emergency department patient visit Mayank Kent Facility:[facility] Start: 08-03-2023 End: 08-03-2023 Emergency department patient visit [facility] Work Phone: Start: 07-29-2023 End: 07-29-2023 Emergency department patient visit Miriam Bonds Facility:[facility] Start: 07-29-2023 End: 07-29-2023 Emergency department patient visit [facility] Work Phone: Start: 06-08-2023 End: 06-08-2023 Emergency department patient visit Rere Aguiar Facility:[facility] Start: 06-08-2023 End: 06-08-2023 Emergency department patient visit [facility] Work Phone: Start: 05-15-2023 End: 05-15-2023 Emergency department patient visit Kota Isaac Facility:[facility] Start: 05-15-2023 End: 05-15-2023 Emergency department patient visit [facility] Start: 05-06-2023 End: 05-06-2023 Emergency department patient visit Rere Aguiar Facility:[facility] Start: 05-06-2023 End: 05-06-2023 Emergency department patient visit [facility] Start: 05-03-2023 End: 05-03-2023 ambulatory Rafy Butler [facility] Work Phone: Start: 05-03-2023 End: 05-03-2023 Patient encounter procedure [facility] Start: 04-28-2023 End: 04-28-2023 Emergency department patient visit Mauricio Marcial Facility:[facility] Start: 04-28-2023 End: 04-28-2023 Emergency department patient visit [facility] Start: 04-28-2023 End: 04-28-2023 Patient encounter procedure Niyah Bui APRN.[facility] Work Phone: [facility] Comment on above: Pain (Primary Dx) Start: 04-21-2023 End: 04-21-2023 Emergency department patient visit Rere Aguiar Facility:[facility] Start: 04-21-2023 End: 04-21-2023 Emergency department patient visit [facility] Start: 04-14-2023 End: 04-14-2023 Emergency department patient visit Rere Aguiar Facility:[facility] Start: 04-14-2023 End: 04-14-2023 Emergency department patient visit [facility] Start: 03-18-2023 End: 03-18-2023 Emergency department patient visit [facility] Start: 03-03-2023 End: 03-03-2023 ambulatory [facility] Work Phone: Start: 03-03-2023 End: 03-03-2023 [facility] Start: 03-01-2023 End: 03-01-2023 Emergency department patient visit [facility] Start: 01-26-2023 End: 01-26-2023 Emergency department patient visit [facility] Start: 12-27-2022 End: 12-27-2022 Emergency department patient visit [facility] Start: 12-25-2022 End: 12-25-2022 Emergency department patient visit [facility] Start: 11-22-2022 End: 11-22-2022 Emergency department patient visit [facility] Start: 10-27-2022 End: 10-27-2022 Emergency department patient visit [facility] Start: 10-23-2022 End: 10-23-2022 Emergency department patient visit [facility] Start: 10-14-2022 End: 10-14-2022 Emergency department patient visit [facility] Start: 10-13-2022 End: 10-13-2022 Emergency department patient visit [facility] Start: 09-15-2022 End: 09-15-2022 Emergency department patient visit [facility] Start: 08-29-2022 End: 08-29-2022 Emergency department patient visit [facility] Start: 04-21-2022 End: 04-21-2022 Patient encounter [facility] Start: 04-04-2022 End: 04-04-2022 Emergency department patient visit [facility] Start: 04-01-2022 End: 04-01-2022 Emergency department patient visit [facility] Start: 03-31-2022 End: 03-31-2022 Patient encounter procedure [facility] Start: 03-14-2022 End: 03-14-2022 Emergency department patient visit [facility] Start: 03-14-2022 End: 03-14-2022 Emergency department patient visit [facility] Start: 02-23-2022 End: 02-23-2022 Emergency department patient visit [facility] Start: 02-09-2022 End: 02-09-2022 Emergency department patient visit [facility] Start: 12-22-2021 End: 12-22-2021 Discharged Recurring [facility] Start: 11-18-2021 End: 11-18-2021 Emergency department patient visit [facility] Start: 10-12-2017 Ambulatory Keyana Abebe Facility:[facility] Start: 08-10-2017 Ambulatory Keyanabrianda Alexiss Facility:[facility] Start: 07-20-2017 Ambulatory Keyanabrianda Alexiss [facility] Procedures Date Procedure Procedure Detail Performing Clinician Start: 04-21-2024 Mri orbit face & nec k w/o & w/contrast dana Hunter MD Work Phone: Start: 03-21-2024 Plain x-ray of hand Dr. Rere Aguiar Work Phone: Start: 02-09-2024 Ct lower extremity w /o contrast material Rere Valentino APRN.CNP Work Phone: Start: 01-31-2024 End: 01-31-2024 Us compl joint r-t w/image documentation Rere Valentino APRN.CNP Work Phone: Start: 11-26-2023 Radiologic examinati on of knee Start: 05-03-2023 Plain x-ray of hand Start: 03-18-2023 X-ray of both feet Start: 03-01-2023 Radiologic examinati on of knee Start: 09-15-2022 Plain x-ray of hand Start: 08-29-2022 Plain x-ray of elbow Start: 04-21-2022 CT of lower limb wit h contrast Start: 03-31-2022 Radiography of ankle Start: 02-23-2022 X-ray of soft tissue of neck Start: 02-09-2022 Plain chest X-ray Start: 12-21-2021 Plain x-ray of elbow Start: 02-04-2015 Colonoscopy Niyah Bui APRN.CNP Work Phone: Plan of Treatment Date Care Activity Detail Author Start: 2038 RSV Vaccine (1 - 1-d ose 75+ series) RSV Vaccine (1 - 1-dose 75+ series) [facility] Start: 10-13-2032 Urine microalbumin profile DTaP,Tdap,Td Vaccine (4 - Td or Tdap) [facility] Start: 05-29-2027 Diabetes Screening Diabetes Screenin g [facility] Start: 03-06-2027 Diabetes Screening Diabetes Screenin g [facility] Start: 12-27-2026 Diabetes Screening Diabetes Screenin g [facility] Start: 07-30-2025 Influenza vaccination Influenz a Vaccine (Season Ended) [facility] Start: 02-04-2025 Colonoscopy COLONOSCOPY [facility] Start: 02-04-2025 COLORECTAL CANCER SCREENING COLORECTAL CANCER SCREENING [facility] Start: 02-04-2025 Screening for malign ant neoplasm of colon [facility] Start: 10-03-2024 End: 10-03-2024 Patient encounter procedure 10/03/2024 9:15 AM EST Office Visit Orthopaedics [address] [address] Luis Miguel Rhodes MD [address] [place], [place] [id number] Lipoma of right upper extremity [D17.21] follow up Orthopaedics Comment on above: Lipoma of right uppe r extremity [D17.21] follow up Start: 07-30-2024 Covid-19 Vaccine ( season) Covid-19 Vaccine ( season) [facility] Start: 07-30-2024 Influenza vaccination [facility] Start: 07-25-2024 End: 07-25-2024 Patient encounter procedure 07/25/2024 11:00 AM EDT Office Visit Rheumatology [address] [place] [address] Tito Vega MD [address] [facility] [address] [place] [id number] Joint Pain Rheumatology Comment on above: Joint Pain Start: 05-16-2024 End: 05-16-2024 Patient encounter procedure 05/16/2024 1:00 PM EDT Office Visit Orthopaedics [address] [address] Luis Miguel Rhodes MD [address] [place] [address] Lipoma of right upper extremity [D17.21] Orthopaedics Comment on above: Lipoma of right uppe r extremity [D17.21] Start: 05-11-2024 End: 05-11-2024 Patient encounter procedure 05/11/2024 10:15 AM EDT Office Visit Orthopaedics [address] [place] [address] Maci Dorsey DO [address] [facility] [place], [place] [id number] Shoulder pain/ Soft Tissue / Neck Mass referral per Dr Hunter Orthopaedics Comment on above: Shoulder pain/ Soft Tissue / Neck Mass referral per Dr Hunter Start: 04-21-2024 End: 04-21-2024 Patient encounter procedure 04/21/2024 8:00 AM EDT Appointment Radiology [address] [place] [address] Neck WO/W, Dx Neck mass [R22.1], pt made the appt Radiology Comment on above: MRI ST Neck WO/W, Dx Neck mass [R22.1], pt made the appt Start: 04-03-2024 End: 04-03-2024 Patient encounter procedure 04/03/2024 3:30 PM EDT Office Visit Rheumatology [address] [place] [address] Rere Valentino APRN.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 [address] [place] [address] follow up in 2 months Rheumatology Comment on above: follow up in 2 month s Start: 04-03-2024 End: 08-05-2024 25-hydroxyvitamin D3 [Mass/volume] in Serum or Plasma VITAMIN D 25 HYDROXY Lab Routine Vitamin D deficiency Expected: 04/03/2024 (Approximate), Expires: 07/03/2024 [facility] Work Phone: Comment on above: Expected: 04/03/2024 (Approximate), Expires: 07/03/2024 Start: 04-03-2024 End: 07-03-2024 CREATININE BLD CREATININE BLD Lab Routine Joint swelling Expected: 04/03/2024 (Approximate), Expires: 07/03/2024 [facility] Work Phone: Comment on above: Expected: 04/03/2024 (Approximate), Expires: 07/03/2024 Start: 04-03-2024 End: 07-03-2024 Parathyrin.intact [Mass/volume] in Serum or Plasma PTH INTACT BLD Lab Routine Joint swelling Expected: 04/03/2024 (Approximate), Expires: 07/03/2024 [facility] Work Phone: Comment on above: Expected: 04/03/2024 (Approximate), Expires: 07/03/2024 Start: 04-03-2024 End: 07-03-2024 Urate [Mass/volume] in Serum or Plasma URIC ACID BLOOD Lab Routine Joint swelling Expected: 04/03/2024 (Approximate), Expires: 07/03/2024 [facility] Work Phone: Comment on above: Expected: 04/03/2024 (Approximate), Expires: 07/03/2024 Start: 04-03-2024 End: 04-03-2024 ambulatory 04/03/2024 10:00 AM EDT Results Only [facility] [address] [place] [address] Vitamin D deficiency [E55.9] [facility] Comment on above: Vitamin D deficiency [E55.9] Start: 03-21-2024 [facility] Start: 03-04-2024 End: 06-03-2024 CBC W Auto Differential panel - Blood CBC + DIFF Lab Routine Hyperuricemia Expected: 03/04/2024 (Approximate), Expires: 06/03/2024 [facility] Work Phone: Comment on above: Expected: 03/04/2024 (Approximate), Expires: 06/03/2024 Start: 03-04-2024 End: 06-03-2024 Comprehensive metabolic 2000 panel - Serum or Plasma COMP METABOLIC PANEL Lab Routine Hyperuricemia Expected: 03/04/2024 (Approximate), Expires: 06/03/2024 [facility] Work Phone: Comment on above: Expected: 03/04/2024 (Approximate), Expires: 06/03/2024 Start: 03-04-2024 End: 06-03-2024 Urate [Mass/volume] in Serum or Plasma URIC ACID BLOOD Lab Routine Hyperuricemia Expected: 03/04/2024 (Approximate), Expires: 06/03/2024 [facility] Work Phone: Comment on above: Expected: 03/04/2024 (Approximate), Expires: 06/03/2024 Start: 12-20-2023 [facility] Start: 11-30-2023 Blood chemistry [facility] Start: 11-29-2023 Behavioral Health Screening Behavioral Health Screening [facility] Start: 11-29-2023 Depression Assessment Depression Ass essment [facility] Start: 11-29-[address] Patient [address] [facility] Start: 11-26-2023 Following clinical pathway protocol [facility] Start: 11-26-2023 Assessment of risk o f venous thromboembolism [facility] Start: 11-26-2023 Fall prevention [facility] Start: 11-26-2023 Insertion of cathete r into peripheral vein [facility] Start: 11-26-2023 Providing care accor ding to standard [facility] Start: 11-26-2023 Provision of activit y privileges [facility] Start: 11-26-2023 Referral to occupati onal therapist [facility] Start: 11-26-2023 Referral to service [facility] Start: 11-26-2023 [facility] Start: 11-26-2023 Hospital admission, emergency, from emergency room, medical nature [facility] Start: 11-26-2023 Admission procedure [facility] Start: 11-26-[address] [facility] Start: 11-26-2023 Patient referral to dietitian [facility] Start: 11-26-2023 [facility] Start: 07-30-2023 Covid-19 Vaccine () Covid-19 Vaccine () [facility] Start: 07-30-2023 Influenza vaccination [facility] Start: 2023 RSV Vaccine (1 - 1-d ose 60+ series) RSV Vaccine (1 - 1-dose 60+ series) [facility] Start: 11-29-2022 DEPRESSION ASSESSMENT DEPRESSION ASS ESSMENT [facility] Start: 10-14-2022 Simple repair scalp/neck/ax/genit/trunk 2.5cm/< RPR S/N/AX/GEN/TRNK 2.5CM/< [facility] Start: 03-14-2022 Emergency department visit low/moder severity EMERGENCY DEPT VISIT [facility] Work Phone: Start: 2018 PROSTATE CANCER SCRE ENING DISCUSSION PROSTATE CANCER SCREENING DISCUSSION [facility] Start: 2018 Prostate specific an tigen measurement Prostate Cancer Screening Discussion [facility] Start: 2013 Pneumococcal Vaccine : 50+ (1 of 1 - PCV) Pneumococcal Vaccine: 50+ (1 of 1 - PCV) [facility] Start: 2013 SHINGRIX VACCINE (1 of 2) LOZANO GRIX VACCINE (1 of 2) [facility] Start: 2008 COLOGUARD (FIT-DNA) COLOGUARD (FIT-D NA) [facility] Start: [address] COLONOGRAPHY [facility] Start: 2008 DIABETES SCREEN DIABETES SCREEN [facility] Start: 2008 FECAL OCCULT BLOOD FECAL OCCULT BLOO D [facility] Start: 2008 Prostate specific an tigen measurement Prostate Cancer Screening Discussion [facility] Start: 2008 Screening for malign ant neoplasm of colon [facility] Start: 2008 [facility]COPY [facility] Start: 1998 Lipid panel Lipid Screening [facility] Start: 1998 LIPID SCREEN LIPID SCREEN [facility] Start: 1982 Urine microalbumin profile DTAP,TDAP,TD (1 - Tdap) [facility] Start: 1981 Anxiety Screening Anxiety Screening [facility] Start: 1981 Depression Screening Depression Scre ening [facility] Start: 1981 HEPATITIS C SCREENING HEPATITIS C SC REENING [facility] Start: 1981 HIV SCREENING HIV SCREENING [facility] Start: 1981 HIV screening HIV Screening [facility] Start: 1963 COVID-19 VACCINE (#1) COVID-19 VACCI NE (#1) [facility] Antibody to lupus La protein measurement [facility] Antibody to SS-A measurement [facility] Centromere protein B Ab [Units/volume] in Serum [facility] Chromatin Ab [Units/volume] in Serum or Plasma [facility] End: 02-16-2025 CT Knee - right WO contrast CT KNEE WO IVCON RIGHT Radiology Routine Chronic pain of both knees Hyperuricemia 1 Occurrences starting 01/18/2024 until 02/16/2025 [facility] Work Phone: Comment on above: 1 Occurrences starti ng 01/18/2024 until 02/16/2025 DNA double strand Ab [Units/volume] in Serum [facility] Denia-1 extractable nuc lear Ab [Units/volume] in Serum [facility] End: 06-15-2025 MR Chest WO contrast MRI CHEST WALL/RIB WO IVCON RIGHT Radiology Routine Localized swelling, mass and lump, trunk 1 Occurrences starting 05/16/2024 until 06/15/2025 [facility] Work Phone: Comment on above: 1 Occurrences starti ng 05/16/2024 until 06/15/2025 End: 04-13-2025 MR Neck WO and W contrast IV MRI SOFT TISSUE NECK WO/W IVCON Radiology Routine Neck mass 1 Occurrences starting 03/14/2024 until 04/13/2025 [facility] Work Phone: Comment on above: 1 Occurrences starti ng 03/14/2024 until 04/13/2025 Nuclear Ab [Presence ] in Serum [facility] Patient Education [facility] Work Phone: Patient referral [facility] Work Phone: SCL-[id number] extractable nuclear Ab [Units/volume] in Serum by Immunoassay [facility] Baum extractable nu clear Ab [Presence] in Serum [facility] End: 06-01-2025 XR Shoulder - right 3 Views XR SHOULDER GENERAL 3V OR MORE AP/TRUE AP/OTHER RIGHT Radiology Routine Right shoulder pain, unspecified chronicity 1 Occurrences starting 05/02/2024 until 06/01/2025 [facility] Work Phone: Comment on above: 1 Occurrences starti ng 05/02/2024 until 06/01/2025 XR Shoulder - right 3 Views XR SHOULDER GENERAL 3V OR MORE AP/TRUE AP/OTHER RIGHT Radiology Routine Right shoulder pain, unspecified chronicity 05/11/2024 9:46 AM EDT [facility] Work Phone: [facility] Immunizations Immunization Date Immunization Notes Care Provider Magdy mackey 10-13-2022 tetanus toxoid, redu veronica diphtheria toxoid, and acellular pertussis vaccine, adsorbed [facility] 08-10-2016 tetanus toxoid, redu veronica diphtheria toxoid, and acellular pertussis vaccine, adsorbed [facility] 12-14-2014 tetanus toxoid, redu veronica diphtheria toxoid, and acellular pertussis vaccine, adsorbed Dr. Rere Aguiar Work Phone: [facility] Payers Date Payer Category Payer Unknown [id number] 2023 Self-pay [id number] 2022 Medicaid [id number] 2014 Unknown [id number] 2014 Unknown [id number] Unknown [id number] 2.16.8 [id number] Unknown [id number] 2.16.8 [id number] Unknown [id number] 2.16.8 [id number] Unknown [id number] 2.16.8 [id number] Unknown [id number] 2.16.8 [id number] Unknown [id number] 2.16.8 [id number] Unknown [id number] 2.16.8 [id number] Unknown [id number] 2.16.8 [id number] Unknown [id number] 2.16.8 [id number] Unknown [id number] 2.16.8 [id number] Unknown [id number] 2.16.8 [id number] Unknown [id number] 2.16.8 [id number] Unknown [id number] 2.16.8 [id number] Unknown [id number] 2.16.8 [id number] Unknown [id number] 2.16.8 [id number] Unknown [id number] 2.16.8 [id number] Unknown [id number] 2.16.8 [id number] Social History Date Type Detail Facility Start: 02-23-2022 End: 03-21-2024 Tobacco smoking status NHIS Unknown if ever smoked [facility] Start: 04-08-2021 Non-smoker [facility] Start: 1965 Sex Assigned At Male [facility] Start: 04-20-2023 Tobacco smoking status NHIS Ex-smoker [facility] Work Phone: History of tobacco use Current smoker [facility] Work Phone: Start: 04-20-2023 End: 12-27-2023 Tobacco use and exposure Smokeless tobacco non-user [facility] Work Phone: Start: 04-28-2023 End: 05-29-2024 Alcohol intake Current drinker of alcohol (finding) [facility] Start: 02-04-2015 Alcohol Comment occasional use [facility] Start: 1965 Sex Assigned At Not on file [facility] Start: 12-27-2023 Tobacco smoking status NHIS Never smoked tobacco [facility] Start: 12-27-2023 End: 05-29-2024 History of Social function [facility] Start: 12-27-2023 End: 05-29-2024 Tobacco use panel [facility] National Score (1-100), lower number is lower risk 90 [facility] NEGATED: Highlighted rowStart: NINF History of tobacco use Passive smoker [facility] Goals Date Patient Goal Desired Activity /State Functional Status Date Assessment Result Facility 11-29-2023 Functional status Ambulates;Bath room Privilege [facility] Work Phone: 06-29-2014 Are you deaf, or do you have serious difficulty hearing No 06/29/2014 3:01 PM Rosita Quzeada LPN No [facility] 06-29-2014 Are you blind, or do you have serious difficulty seeing, even when wearing glasses Yes 06/29/2014 3:01 PM Rosita Quezada LPN Yes [facility] 06-29-2014 Do you have serious difficulty walking or climbing stairs No 06/29/2014 3:01 PM Rosita Quezada LPN No [facility] 06-29-2014 Do you have difficul ty dressing or bathing No 06/29/2014 3:01 PM EDT Rosita Foley LPN No [facility] 06-29-2014 Because of a physica l, mental, or emotional condition, do you have difficulty doing errands alone such as visiting a physician's office or shopping No 06/29/2014 3:01 PM EDT Rosita Foley LPN No [facility] Mental Status Date Assessment Result Facility 11-29-2023 Cognitive function Voice/Name [facility] Work Phone: 11-26-2023 Cognitive function Level Of Cons ciousness Awake;Alert;Appropriate [facility] Work Phone: 06-08-2023 Cognitive function Level Of Cons ciousness Awake;Alert;Appropriate [facility] Work Phone: 05-06-2023 Cognitive function Level Of Cons ciousness Awake;Alert;Appropriate;Fol lows Commands [facility] Work Phone: 01-26-2023 Cognitive function Level Of Cons ciousness Awake;Alert;Appropriate [facility] Work Phone: 02-09-2022 Cognitive function Voice/Name [facility] Work Phone: 06-29-2014 Because of a physica l, mental, or emotional condition, do you have serious difficulty concentrating, remembering, or making decisions No 06/29/2014 3:01 PM EDT Rosita Foley LPN No [facility] Clinical Notes 03-01-2023 to 04-24-2025 Telephone Encounter - Kirstin Metcalf MA - 04/24/2025 9:32 AM EDTTelephone Encounter - Kirstin Metcalf MA - 04/24/2025 9:32 AM Luis Miguel Townsend MD - 05/16/2024 1:00 PM EDT Note Date & Type Note Facility 04-24-2025 Telephone encounter Note Last office visit: Next office visit: Requested Prescriptions Pending Prescriptions Disp Refills allopurinol (ZYLOPRIM) 100 mg tablet [Pharmacy Med Name: ALLOPURINOL 100 MG TABLET] 180 tablet 2 Sig: TAKE 2 TABLETS BY MOUTH EVERY DAY Please review and advise. Kirstin Metcalf MA [facility] 04-24-2025 Miscellaneous Notes Last office visit: Next office visit: Requested Prescriptions Pending Prescriptions Disp Refills allopurinol (ZYLOPRIM) 100 mg tablet [Pharmacy Med Name: ALLOPURINOL 100 MG TABLET] 180 tablet 2 Sig: TAKE 2 TABLETS BY MOUTH EVERY DAY Please review and advise. Kirstin Metcalf MA documented in this encounter [facility] 02-07-2025 Telephone encounter Note Most recent Rheumatology visit: 05/29/2024 (with Malik Mera) Last Bone Density on file: None on file Rheumatology Care Team: None on file Recent Office Visits - This Specialty 05/29/2024 Gout with manifestations Rheumatology Malik Mera, ASSISTANT EDITOR.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 04/03/2024 Gout with manifestations Rheumatology Rere Valentino, ASSISTANT EDITOR.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 03/15/2024 Gout with manifestations Rheumatology Rere Valentino, ASSISTANT EDITOR.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 Upcoming Rheumatology Appointments - Next 365 Days No appointments to display CBC: None on file in the last 6 months Vitamin D: None on file in the last 6 months LFT: None on file in the last 6 months Hepatic Function: Creatinine: None on file in the last 6 months ESR/CRP: None on file in the last 6 months Uric Acid: None on file in the last 6 months Open Standing (Multiple Instance) Lab Orders None Open Future (Single Instance) Lab Orders None [facility] 02-07-2025 Miscellaneous Notes Most recent Rheumatology visit: 05/29/2024 (with Malik Mera) Last Bone Density on file: None on file Rheumatology Care Team: None on file Recent Office Visits - This Specialty 05/29/2024 Gout with manifestations Rheumatology Malik Mera, ASSISTANT EDITOR.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 04/03/2024 Gout with manifestations Rheumatology Rere Valentino, ASSISTANT EDITOR.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 03/15/2024 Gout with manifestations Rheumatology Rere Valentino, ASSISTANT EDITOR.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 Upcoming Rheumatology Appointments - Next 365 Days No appointments to display CBC: None on file in the last 6 months Vitamin D: None on file in the last 6 months LFT: None on file in the last 6 months Hepatic Function: Creatinine: None on file in the last 6 months ESR/CRP: None on file in the last 6 months Uric Acid: None on file in the last 6 months Open Standing (Multiple Instance) Lab Orders None Open Future (Single Instance) Lab Orders None documented in this encounter [facility] 09-20-2024 Telephone encounter Note Called Dr Mendoza office, [facility] is the only place that performs this type of surgery. Spoke with Pablo & he agreed with a follow up appointment with Dr. Rhodes on 10/03. [facility] 09-20-[address] Mendoza office, [facility] is the only place that performs this type of surgery. Spoke with Pablo & natali agreed with a follow up appointment with Dr. Rhodes on 10/03. Patient called in stating he was seen by Dr. Rhodes for a lipoma. Patient prefers not to travel to [facility]. Do you have someone else that you can recommend he see? He is willing to travel to [place]. documented in this encounter [facility] 09-20-2024 Telephone encounter Note Patient called in stating he was seen by Dr. Rhodes for a lipoma. Patient prefers not to travel to [facility]. Do you have someone else that you can recommend he see? He is willing to travel to [place]. [facility] 05-29-2024 Note HNO ID: [id number] Author: MALIK MERA APRN.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 Service: ? Author Type: Nurse Practitioner Type: Progress Notes Filed: 06/20/2024 08:44 Note Text: Rheumatology FOLLOW UP VISIT Referring Provider: Self Date of Service: 05/29/2024 Gender: male Ethnicity: Black Age: [age] year old Chief Complaint: New Last Rheumatology visit: 05/29/2024 (with Malik Mera) Xiang West is a 59 year old Black male who presents on 05/29/2024 for in person visit for follow-up of New. He is currently taking diclofenac sodium, meloxicam, methylprednisolone. INTERVAL HISTORY Under care Rheum PATRICIA Rere Valentino. Working diagnosis is gout Reviewed detailed notes from March 2024. Currently on allopurinol 200 mg per day and uric acid is at target. Having more knee pain and swelling, gets stiff can't bend knee well with that happens. Intermittent medrol used. PAIN EVALUATION No data found in the last 1 encounters. Impression Diagnoses: (M10.9) Gout with manifestations (primary encounter diagnosis) Stable gout Plan (M10.9) Gout with manifestations (primary encounter diagnosis) Comment: Gout, stable Will continue on current allopurinol if labs are ok Intermittent knee pain, will give short medrol dose pack now Ok for mobic to resume after that. 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 I spent a total of 20 minutes on the date of the service which included preparing to see the patient, [id number] patient care, completing clinical documentation, obtaining and/or reviewing separately obtained history, performing a medically appropriate examination, and counseling and educating the patient/family/caregiver. Malik Mera APRN.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 cc: PCP: Rere Aguiar MD ([facility]) [address] [place] [id number] Subjective HISTORY OF PRESENT ILLNESS Gout- Treatment: Allopurinol 200mg daily Uric acid 8.3 in early 2023. Age at start of MSK symptoms: 48 years Joint pain: right knee, left knee, right ankle, left ankle, right MCP, right PIP, left MCP, left PIP, right toes, left toes, right MTP, left MTP No gelling xr knees-> Mild bilateral knee osteoarthritis xr hands-> Mild osteoarthritis + family hx of gout. INTERVAL HISTORY Under care Rheum PATRICIA Rere Valentino. Working diagnosis is gout Reviewed detailed notes from March 2024. Currently on allopurinol 200 mg per day and uric acid is at target. Having more knee pain and swelling, gets stiff can't bend knee well with that happens. Intermittent medrol used. Disease History Gout History Frequency of attacks at initial presentation: patient is unsure sometimes called gout attacks and other times not . he is not sure. more frequently RISK FACTORS No diuretic use No use of low dose aspirin No use of cyclosporine Family history: uncle Diet: cutting back recently on red meat, trying to increase water intake No chronic kidney disease Hypertension No congestive heart failure No coronary artery disease No obstructive sleep apnea No history of kidney stones No metabolic disease No solid organ transplant Alcohol Use: Yes (occasional use) Autoimmune Disease History No dry eyes no dry mouth Musculoskeletal History Age at start of MSK symptoms: 48 years Joint pain: right knee, left knee, right ankle, left ankle, right MCP, right PIP, left MCP, left PIP, right toes, left toes, right MTP, left MTP No gelling Joint swelling (Comment: Kees, ankles, hands - pips) Anything make it better?: Yes (Comment: prednisone, pains meds,) Knee popping, locking, or clicking?: Yes (Comment: feels straight locked because swelling) Knee gives way or falls?: No No joint replacements Other Arthritis-related Surgery Location Date Comment right elbow sx Patient-Entered Data PROMIS Assessments No data to display No data to display No data to display No data to display PHQ-9 0 - 4: Minimal Depression 5 - 9: Mild Depression 10 - 14: Moderate Depression 15 - 19: Moderately Severe Depression 20 - 27: Severe Depression Objective Treatment History Musculoskeletal Pain - Treatments Tried Ice: Yes more painful Heat: No Brace: No NSAIDs/Tylenol: Yes Treatment Start Date Stop Date Stop Reason Comment asa does not help motrin, ibuprofen does not help mobic helps Gout Treatments Treatment Start Date Stop Date Stop Reason Comment allopurinol current Prednisone Treatments Treatment Start Date Stop Date Stop Reason Comment frequently with ER visits helps resolve flares Relevant Previous Investigations Uric Acid Uric Acid Latest Ref Rng AND Units 4.0 - 8.1 mg/dL (more content not included)... [facility] 05-16-2024 History of Present illness Narrative Orthopaedic Oncology New Patient Evaluation Chief Complaint: Lipomatous mass, right side back/shoulder area Referring Physician: Peggy Hunter History of Present Illness: Xiang West is a LHD 58 year old year old male who presents for evaluation of the above chief complaint. States that he has had a mass on his upper back for the last 10 years. Notes that he thinks been growing over the last 6. He has no pain at rest. He does have some minor pain when reaching overhead and out in front of himself. He denies notes tingling to his right upper extremity. He denies personal cancer history. He denies other masses. Review of Systems: Review of systems is positive for chest wall mass. Other complete ROS is questioned and negative. PAST MEDICAL HISTORY Diagnosis Date Hypertension PAST SURGICAL HISTORY Procedure Laterality Date COLONOSCOPY FLX DX W/COLLJ SPEC WHEN PFRMD 02/04/2015 Colonoscopy PAST SURGICAL HISTORY OF Right Right elbow surgery ALLERGIES No Known Allergies Current Outpatient Medications on File Prior to Visit Medication Sig allopurinol (ZYLOPRIM) 200 mg tablet Take 1 tablet (200 mg) by mouth once daily. Clindamycin-Benzoyl Peroxide 1-5 % gel as directed losartan (COZAAR) 50 mg tablet Take 1 tablet by mouth every afternoon. predniSONE (DELTASONE) 20 mg tablet Take 1 tablet by mouth every afternoon. Cholecalciferol, Vitamin D3, (VITAMIN D) 25 mcg (1,000 unit) cap Take 2 capsules by mouth once daily. colchicine 0.6 mg tablet May take twice daily for first day then once daily there after lidocaine (LIDODERM) 5 % Apply 1 Patch as directed once daily. TO AFFECTED AREA. REMOVE AFTER 12 HOURS. doxycycline monohydrate 100 mg tablet Take 100 mg by mouth once daily. meloxicam (MOBIC) 7.5 mg tablet Take 1 tablet by mouth every afternoon. clobetasol (TEMOVATE) 0.05 % cream Clindamycin Phosphate (CLEOCIN T) 1 % lotion CERAVE BP WASH 2.5 % oxyCODONE-acetaminophen (PERCOCET) 5-325 mg tablet Take one(1) tablet every six(6) hours as needed. (Patient not taking: Reported on 04/03/2024) amLODIPine (NORVASC) 10 mg tablet Take one(1) tablet daily. dupilumab (DUPIXENT SYRINGE) 100 mg/0.67 mL injection Inject 100 mg subcutaneously every 2 weeks. diclofenac (VOLTAREN) 1 % topical gel Apply 2 g to affected area four times a day as needed. TO PAINFUL JOINTS , AVOID CONTACT WITH EYES, DO NOT EXCEED 32GM/DAY No current facility-administered medications on file prior to visit. FAMILY HISTORY Problem Relation Age of Onset Cancer Mother thyroid Asthma Father Social History Tobacco Use Smoking status: Never Passive exposure: Never Smokeless tobacco: Never Vaping Use Vaping Use: Never used Substance Use Topics Alcohol use: Yes Comment: occasional use Drug use: No Physical Examination: There were no vitals taken for this visit. General: alert, oriented, no acute distress Skin: No visible skin lesions HEENT: normocephalic, extraocular movements intact, mucous membranes moist/intact Cardiovascular: pulse regular, no lower extremity edema Pulmonary: normal respiratory effort and chest wall excursion Right shoulder: Normal overlying skin. No erythema or induration. No axillary or cervical lymphadenopathy. There is a large approximately 15 cm lipomatous mass on his right upper back in the rhomboid/trapezius area. Symmetric muscle bulk and tone. Shoulder range of motion is 100% of total active elevation. 170 forward flexion, 170 abduction, 80 external rotation with the arm at the side. Scapular motion is symmetric without winging. 5/5 deltoid, subscapularis, supraspinatus, external rotators, biceps, triceps, wrist extension, wrist flexion, web services developer, dorsal interossei, EPL and APB. Sensation intact to light touch to the axillary, median, radial and ulnar distributions. 2+ radial pulse. Results Reviewed: Laboratory evaluation: CBC benign Radiographic evaluation: I personally reviewed the MRI of the neck dated 04/21/2024. This demonstrates a homogeneous fat signal intensity mass deep to the trapezius in the right side of the upper back. This appears to be within the rhomboid musculature. The mass measures 14 cm in maximal dimension. 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 I described these as benign conditions with the ALT being considered as slightly more aggressive with higher risk of local recurrence and a very small risk of dedifferentiation. I described the conditions as being treated essentially the same way with the goal being complete resection of the mass. As such a biopsy is generally not helpful at guiding treatment or surveillance strategies. The options are to perform a surgical resection of the mass or observe it with serial cross sectional imaging. If surgical resection is performed and ALT is confirmed I generally recommend an MRI at 3 months post-operatively to serve as a baseline for monitoring recurrence. I then will typically recommend either clinical surveillance only. An intramuscular lipoma does not require imaging follow-up unless a new concern arises. If observation is chosen I would recommend repeat cross sectional imaging in 1 year in the form of a repeat MRI of the without gadolinium. All questions were answered regarding this approach and these options. The patient has chosen education. These recommendations are being sent back to Peggy Hunter via [employer] Specialist or Chart [employer] for [facility] Providers. Luis Miguel Rhodes MD Test Rack Operator, Orthopaedic Surgery Division of Musculoskeletal Oncology documented in this encounter [facility] 05-16-2024 Note HNO ID: [id number] Author: LUIS MIGUEL RHODES MD Service: ? Author Type: Physician Type: Progress Notes Filed: 05/16/2024 14:30 Note Text: Orthopaedic Oncology New Patient Evaluation Chief Complaint: Lipomatous mass, right side back/shoulder area Referring Physician: Peggy Hunter History of Present Illness: Xiang West is a LHD 58 year old year old male who presents for evaluation of the above chief complaint. States that he has had a mass on his upper back for the last 10 years. Notes that he thinks been growing over the last 6. He has no pain at rest. He does have some minor pain when reaching overhead and out in front of himself. He denies notes tingling to his right upper extremity. He denies personal cancer history. He denies other masses. Review of Systems: Review of systems is positive for chest wall mass. Other complete ROS is questioned and negative. PAST MEDICAL HISTORY Diagnosis Date Hypertension PAST SURGICAL HISTORY Procedure Laterality Date COLONOSCOPY FLX DX W/COLLJ SPEC WHEN PFRMD 02/04/2015 Colonoscopy PAST SURGICAL HISTORY OF Right Right elbow surgery ALLERGIES No Known Allergies Current Outpatient Medications on File Prior to Visit Medication Sig allopurinol (ZYLOPRIM) 200 mg tablet Take 1 tablet (200 mg) by mouth once daily. Clindamycin-Benzoyl Peroxide 1-5 % gel as directed losartan (COZAAR) 50 mg tablet Take 1 tablet by mouth every afternoon. predniSONE (DELTASONE) 20 mg tablet Take 1 tablet by mouth every afternoon. Cholecalciferol, Vitamin D3, (VITAMIN D) 25 mcg (1,000 unit) cap Take 2 capsules by mouth once daily. colchicine 0.6 mg tablet May take twice daily for first day then once daily there after lidocaine (LIDODERM) 5 % Apply 1 Patch as directed once daily. TO AFFECTED AREA. REMOVE AFTER 12 HOURS. doxycycline monohydrate 100 mg tablet Take 100 mg by mouth once daily. meloxicam (MOBIC) 7.5 mg tablet Take 1 tablet by mouth every afternoon. clobetasol (TEMOVATE) 0.05 % cream Clindamycin Phosphate (CLEOCIN T) 1 % lotion CERAVE BP WASH 2.5 % oxyCODONE-acetaminophen (PERCOCET) 5-325 mg tablet Take one(1) tablet every six(6) hours as needed. (Patient not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 Record: [id number] Primary Care Physician: Rere Aguiar MD Last Rheumatology visit: 04/03/2024 (with Rere Valentino) History of Present Illness Xiang West is a 58 year old Black male who presents on 04/03/2024 for an in-person visit for evaluation of Follow Up (Rt knee swelling and soreness -- Prednisone has only taken 2 tabs over the past 4 days-- has only been taking 100mg of Allopurinol daily ). He is currently taking diclofenac sodium. Xiang reports a current pain level of 8 (Knee-Right). He describes the pain as Aching, Sore. The pain is Continuous, and has lasted for 5 Days. Onset of symptoms began at age 48. Xiang is both RF - 10 (12/27/2023) and CCP - 13.5 (12/27/2023) negative. His most recent VIRY was negative (12/27/2023). There are no rheumatoid nodules present. Xiang has joint swelling (Kees, ankles, hands - pips). Xiang reports he does not have any morning stiffness. HISTORY OF PRESENT ILLNESS Only see rheumatology 1 visit in the past Multiple ER visits for joint pain History gout? Allopurinol 100mg daily Went to ER twice in last few weeks Several years joint Intermittent can go months without anything or multiple times month Pains - Knees, ankles, pips, mcps, toes Swelling - ankles , toes, knees, pips, mcps Am stiffness - no If joints stiff and swollen only gets worse not better Feels locked in position Unless having flare no am stiffness Last time could not get out of bed for 4 days Could not bend either knees Painful stiff swelling Used to be able to work it out but not does not stop pain gets worse Pain stiffness swelling relieved with prednisone No redness Does have tenderness when happens No known history RA or lupus Family history gout Not increased stress No infection proceeding INTERVAL HISTORY Right knee pain 5 days Has not needed er for knee since Nov Not as bad Allopurinol 100mg daily Instead of 2 daily he has only been taking one Took pred 2 days in row Mobic daily and colchicine once daily Vit d 2 capsules daily Musculoskeletal History Age at start of MSK symptoms: 48 years Joint pain: right knee, left knee, right ankle, left ankle, right MCP, right PIP, left MCP, left PIP, right toes, left toes, right MTP, left MTP No gelling Joint swelling (Comment: Kees, ankles, hands - pips) Anything make it better?: Yes (Comment: prednisone, pains meds,) Knee popping, locking, or clicking?: Yes (Comment: feels straight locked because swelling) Knee gives way or falls?: No No joint replacements Other Arthritis-related Surgery Location Date Comment right elbow sx Gout History Frequency of attacks at initial presentation: patient is unsure sometimes called gout attacks and other times not . he is not sure. more frequently RISK FACTORS No diuretic use No use of low dose aspirin No use of cyclosporine Family history: uncle Diet: cutting back recently on red meat, trying to increase water intake No chronic kidney disease Hypertension No congestive heart failure No coronary artery disease No obstructive sleep apnea No history of kidney stones No metabolic disease No solid organ transplant Pain Evaluation 04/20/2023 04/28/2023 12/27/2023 03/15/2024 04/03/2024 Pain Evaluation Pain Score 8 7 4 8 Location Hand-Left Hand-Left Knee-Right Knee-Right Knee-Right Description Aching;Throbbing;Sore;Shooting Sharp;Stabbing;Throbbing;Aching;S ore;Numbness;Tingling Aching Aching Aching;Sore Duration (#) 1 2 2 5 Duration (Timeframe) Weeks Weeks Days Unknown Days Frequency Continuous Intermittent Continuous Intermittent Continuous Intervention Medication Medication Patient-Entered Data PROMIS Assessments No data to display No data to display No data to display No data to display RAPID 3 Maher Activities of Daily Living No Data Dress self? - Get in and out of bed? - Walk outdoors? - Wash and dry body? - Get in and out of car? - RAPID 3 Disease Activity Weighed Score Levels: 0 - 1: Near Remission 1.3 - 2.0: Low Severity 2.3 - 4.0: Moderate Severity 4.3 - 10.0: High Severity No data to display Review of Systems Review of Systems CONSTITUTION: Negative for: Weight loss or gain, Fever. Chills, Night sweats HEENT: Negative for: Nosebleeds, Mouth sores, Trouble swallowing, Dry mouth RESPIRATORY: Negative for: Cough, Shortness of breath, Pain with breathing, Coughing up blood GASTROINTESTINAL: Negative for: Melena, Diarrhea, Abdominal pain, Heartburn, MUSCULOSKELETAL: Positive for: Arthralgias (right knee) Negative for: Myalgias, Muscle weakness, Joint swelling and Morning Joint Stiffness NEUROLOGICAL: Negative for: Headaches, Numbness, Memory loss, SKIN: Negative for: Rashes, Sun sensitive rashes, Skin color changes, Hair loss, Nail changes EYES: Negative for: Eye pain, Eye redness, Visual disturbance, Eye dryness CARDIOVASCULAR: Negative for: Chest pain, Leg swelling, Arrhythmia, Presyncope GENITOURINARY: Negative for: Dysuria, Hematuria, Ulceration HEMATOLOGIC/LYMPHATIC: Negative for: Swollen glands All other reviewed and negative other than HPI. Past Medical History PAST MEDICAL HISTORY Diagnosis Date Hypertension Past Surgical History PAST SURGICAL HISTORY Procedure Laterality Date COLONOSCOPY FLX DX W/COLLJ SPEC WHEN PFRMD 02/04/2015 Colonoscopy Family History FAMILY HISTORY Problem Relation Age of Onset Asthma Father Cancer Mother thyroid Social History Social History Tobacco Use Smoking status: Never Passive exposure: Never Smokeless tobacco: Never Vaping Use Vaping Use: Never used Substance Use Topics Alcohol use: Yes Comment: occasional use Drug use: No Current Medications Musculoskeletal Pain - Treatments Tried Ice: Yes more painful Heat: No Brace: No NSAIDs/Tylenol: Yes Treatment Start Date Stop Date Stop Reason Comment asa does not help motrin, ibuprofen does not help mobic helps Gout Treatments Treatment Start Date Stop Date Stop Reason Comment allopurinol current Prednisone Treatments Treatment Start Date Stop Date Stop Reason Comment frequently with ER visits helps resolve flares Current Outpatient Medications Medication Sig allopurinol (ZYLOPRIM) 100 mg tablet Take 2 tablets by mouth every afternoon. Clindamycin-Benzoyl Peroxide 1-5 % gel as directed losartan (COZAAR) 50 mg tablet Take 1 tablet by mouth every afternoon. predniSONE (DELTASONE) 20 mg tablet Take 1 tablet by mouth every afternoon. Cholecalciferol, Vitamin D3, (VITAMIN D) 25 mcg (1,000 unit) cap Take 2 capsules by mouth once daily. colchicine 0.6 mg tablet May take twice daily for first day then once daily there after lidocaine (LIDODERM) 5 % Apply 1 Patch as directed once daily. TO AFFECTED AREA. REMOVE AFTER 12 HOURS. doxycycline monohydrate 100 mg tablet Take 100 mg by mouth once daily. meloxicam (MOBIC) 7.5 mg tablet Take 1 tablet by mouth every afternoon. clobetasol (TEMOVATE) 0.05 % cream Clindamycin Phosphate (CLEOCIN T) 1 % lotion CERAVE amLODIPine (NORVASC) 10 mg tablet Take one(1) tablet daily. dupilumab (DUPIXENT SYRINGE) 100 mg/0.67 mL injection Inject 100 mg subcutaneously every 2 weeks. diclofenac (VOLTAREN) 1 % topical gel Apply 2 g to affected area four times a day as needed. TO PAINFUL JOINTS , AVOID CONTACT WITH EYES, DO NOT EXCEED 32GM/DAY allopurinol (ZYLOPRIM) 200 mg tablet Take 1 tablet (200 mg) by mouth once daily. (Patient not taking: Reported on 04/03/2024) BP WASH 2.5 % oxyCODONE-acetaminophen (PERCOCET) 5-325 mg tablet Take one(1) tablet every six(6) hours as needed. (Patient not taking: Reported on 04/03/2024) Labs Latest Ref Rng & Units 12/27/2023 03/06/2024 CBC WBC 3.70 - 11.00 k/uL 10.95 9.50 Hemoglobin 13.0 - 17.0 g/dL 14.9 14.1 Hematocrit 39.0 - 51.0 % 45.7 43.5 Platelet Count 150 - 400 k/uL 262 311 Abs Neut (ANC) 1.45 - 7.50 k/uL 6.24 5.77 Abs Lymph 1.00 - 4.00 k/uL 3.84 2.91 Latest Ref Rng & Units 12/27/2023 02/02/2024 03/06/2024 04/03/2024 CMP Sodium 136 - 144 mmol/L 140 142 Potassium 3.7 - 5.1 mmol/L 4.3 4.1 Chloride 97 - 105 mmol/L 101 106 CO2 22 - 30 mmol/L 27 25 Glucose 74 - 99 mg/dL 91 74 BUN 9 - 24 mg/dL 15 17 Creatinine 0.73 - 1.22 mg/dL 1.32 1.03 1.03 1.07 Calcium 8.5 - 10.2 mg/dL 8.9 9.1 AST 14 - 40 U/L 15 23 ALT 10 - 54 U/L 17 18 Alkaline Phosphatase 38 - 113 U/L 99 93 Latest Ref Rng & Units 12/27/2023 03/06/2024 04/03/2024 Uric Acid Uric Acid 4.0 - 8.1 mg/dL 8.3 2.7 4.3 Latest Ref Rng & Units 12/27/2023 02/02/2024 ESR, WSR WSR 0 - 15 mm/hr 34 34 Latest Ref Rng & Units 12/27/2023 02/02/2024 CRP CRP <0.9 mg/dL 1.5 1.0 Latest Ref Rng & Units 12/27/2023 C3, C4 C3 86 - 166 mg/dL 145 C4 13 - 46 mg/dL 42 Latest Ref Rng & Units 12/27/2023 RF and CCP Rheumatoid Factor <16 IU/mL 10 CCP Antibody IgG Qualitative Negative Negative CCP Antibody, IgG <20 Units <15 Latest Ref Rng & Units 12/27/2023 Hepatitis Screen Hep B Core Ab, Total Negative Negative Hep B Surf Ab Qual Negative Hep C Antibody IA Negative Negative Hep B Surface Ag Negative Negative 12/27/2023 TB Screen TB Interpretation Infection with M. tuberculosis complex is unlikely. If latent tuberculosis infection is highly suspected, a negative result does not rule out the infection. Specimens from immunocompromised patients and those <5 years of age may show false negative results. In case of a contact investigation, please repeat 8-12 weeks after a known exposure. TB Result Negative Latest Ref Rng & Units 12/27/2023 Antibodies VIRY Negative Negative Latest Ref Rng & Units 12/27/2023 Urinalysis Protein, Urine Negative Negative RBC, Urine 0-2 /HPF 0-2 /HPF Latest Ref Rng & Units 12/27/2023 TPMT amd G6PD G-6-PD Quantitative 9.8 - 15.5 U/g Hb 11.9 Imaging Last XR Hand/Finger - Impression Only XR HAND GENERAL 3V PA/LAT/OBL BILATERAL Exam End: 12/27/2023 1:31 PM (Final result) Impression: IMPRESSION: 1. Mild osteoarthritis Weekend Anchor: BETTY Transcribe Date/Time: Dec 27 2023 3:20P Dictated by : TAHIR YORK MD... Last US Hand/Finger - Impression Only US HAND/WRIST SYNOVIAL SCREEN LEFT Exam End: 01/31/2024 1:29 PM (Final result) Impression: IMPRESSION: No active synovitis or tenosynovitis in the hands or wrists. ... Last XR Knee - Impression Only XR KNEE GENERAL 4V AP BOTH/PA BOTH/LAT/MERC BILATERAL Exam End: 12/27/2023 1:33 PM (Final result) Impression: IMPRESSION: 1. Mild bilateral knee osteoarthritis Weekend Anchor: [facility] Transcribe Date/Time: Dec 27 2023 3:18P Dictated by : TAHIR YORK MD... Last CT Knee - Impression Only CT KNEE WO IVCON RIGHT Exam End: 02/09/2024 12:39 PM (Final result) Impression: IMPRESSION: No findings to suggest gout. Weekend Anchor: BETTY Transcribe Date/Time: Feb 09 2024 12:46P ... Last XR Ankle - Impression Only XR ANKLE GENERAL 3V AP/LAT/OBL BILATERAL Exam End: 12/27/2023 1:32 PM (Final result) Impression: IMPRESSION: 1. Bilateral talocalcaneal tarsal coalition. Weekend Anchor: BETTY Transcribe Date/Time: Dec 27 2023 3:15P Dictated by : TAHIR YORK MD... Last US Ankle - Impression Only US FOOT/ANKLE SYNOVIAL SCREEN LEFT Exam End: 01/31/2024 1:57 PM (Final result) Impression: IMPRESSION: Nonspecific active synovitis in the left second MTP joint. No other active synovitis tenosynovitis in the feet or ankles. ... Last XR Chest - Impression Only No resulted procedures found. Health Maintenance Current Immunizations Reviewed on 03/14/2024 Name Date tetanus diphtheria pertussis (Tdap) vaccine 10/13/2022 , 08/10/2016 , 12/14/2014 Physical Exam GENERAL APPEARANCE: Well groomed. Alert and oriented x 3. In no distress. VITAL SIGNS: BP 148/84 Pulse 74 Temp 97.4 Wt 254 lb 10.1 oz (115.5kg) SpO2 99% Physical Exam Vitals reviewed. Constitutional: Appearance: Normal appearance. HENT: Head: Normocephalic. Right Ear: Tympanic membrane normal. Left Ear: Tympanic membrane normal. Nose: Nose normal. Mouth/Throat: Mouth: Mucous membranes are moist. Eyes: Extraocular Movements: Extraocular movements intact. Conjunctiva/sclera: Conjunctivae normal. Pupils: Pupils are equal, round, and reactive to light. Cardiovascular: Rate and Rhythm: Normal rate and regular rhythm. Pulses: Normal pulses. Heart sounds: Normal heart sounds. Pulmonary: Effort: Pulmonary effort is normal. Breath sounds: Normal breath sounds. Musculoskeletal: General: Swelling (trace right knee) and tenderness (slight right knee) present. Normal range of motion. Cervical back: Normal range of motion and neck supple. Comments: No other joint swelling No joint deformities No other joint tenderness Scar on right elbow prior sx Skin: General: Skin is warm and dry. Capillary Refill: Capillary refill takes less than 2 seconds. Comments: Skin bx sites bilateral lower legs Skin hyperpigmentation upper thighs Neurological: General: No focal deficit present. Mental Status: He is alert and oriented to person, place, and time. Psychiatric: Mood and Affect: Mood normal. Behavior: Behavior normal. Thought Content: Thought content normal. Judgment: Judgment normal. SKIN: No rash, thickening, nodules, discoloration. EYES: PERRL, EOMI HENT: Normal external examination of the ears and nose, lips, oropharynx and tongue. No oropharyngeal lesions, exudate, or sores. NECK: No mass or asymmetry. RESPIRATORY: Normal respiratory effort. Clear to auscultation and percussion. CARDIOVASCULAR: Heart RRR without gallop, murmur, or rub ABDOMEN: BS normal. No bruits, No tenderness, mass, or hepatosplenomegaly. NEUROLOGIC: Sensory exam normal. MUSCULOSKELETAL EXAMINATION: Soft tissue tender points: None Motor exam: Normal 5+/5+ muscle strength. Normal bulk and tone. Spine: Cervical spine: No visible abnormalities. Full ROM. No tenderness to palpation. Thoracic spine: No visible abnormalities. No tenderness to palpation. Lumbar spine: No visible abnormalities. Full ROM. No tenderness to palpation SI Joints: No tenderness to palpation. Negative Eusebia s Test Upper extremities: Shoulders: Full ROM in all viera, no tenderness to palpation. No swelling or effusion. Negative impingement signs via Neer s Test and Hawkin s Test. Negative Job s Test. Negative Speed s Test and Yergason s Test for biceps tendon. Elbows: Full ROM in flexion and extension. No swelling or effusion. No tenderness to palpation to the joint line, olecranon, medial or lateral epicondyles. Wrists: Full ROM in all viera. No swelling or synovitis. No pain with pronation/supination. No tenderness to palpation Hands: Full ROM in flexion and extension. Full web services developer strength. No swelling or synovitis along the MCPs, PIPs, and DIPs. No tenderness along the MCPs, PIPs, and DIPs. Negative Arlen s test. Lower extremities: Hips: Full ROM without pain. No tenderness to palpation along greater trochanter, gluteal fossa, or piriformis. Negative log roll. Negative ELIZABETH and FADIR tests. Knees: Full ROM in flexion and extension. No swelling or effusion. No tenderness to palpation. Negative patellar apprehension and glide. Negative patellar crepitus and grind. Negative provocative exams including Zahra s, valgus stress at 0 and 30 degrees, varus stress at 0 and 30 degrees, McMurrays Test, and Posterior Drawer. Ankles: Full ROM in all viera. No swelling or effusion. No tenderness to palpation along the joint line, medial/lateral malleolus, ATFL, PTFL, CFL, or Achilles Tendon. Feet: Full ROM in toe flexion/extension. No effusion. No tenderness to palpation. No evidence of MTP swelling. There is currently no information documented on the homunculus. Go to the Rheumatology activity and complete the [facility] joint exam. Joint Exam 04/03/2024 No joint exam has been documented for this visit Joint Exam Data (across time) Impression Diagnoses: (M10.9) Gout with manifestations (primary encounter diagnosis) (M25.561, M25.562, G89.29) Chronic pain of both knees (E55.9) Vitamin D deficiency (E79.0) Hyperuricemia Reports history gout on allopurinol ? Inflammatory arthritis Family hisotry gout No family history inflammatory arthritis. In past -Rf-ccp He has went to the ER about once a month starting in 2021 for joint pain. Pain in hands pips,mcps, knees, and ankles. Prior joint effusions on xrays Intermittent swelling in ankles, knees and hands pips and mcps. Today only the right knee has trace synovitis. Recently on prednisone for flare. Will order labs, Us hands / ankles, xrays knees, ankles, hands History vit d def - not taking will recheck Recent bx of skin on legs black discoloration- patient will continue to follow for results -RF-CCP-VIRY Hyperuricemia 8.3 Vit d def - started on vit d rx Hands-Mild osteoarthritis Ankle- Bilateral talocalcaneal tarsal coalition.- referred to podiatry Knees-Mild bilateral knee osteoarthritis US- Nonspecific active synovitis in the left second MTP joint. No active synovitis or tenosynovitis in the hands or wrists. CT low dose to check for gout was negative - gout may have been in remission when this was checked As his symptoms of sudden swelling / redness/ pain Will try to obtain old records of knee asp to confirm pred patient stopped on his own this was to continue low dose for months - he thinks was causing acne allopurinol 200mg daily - he was accidental taking 100mg daily - we have discussed multiple times dosages. Will resume the 200mg daily Uric acid normal Will start colchicine once daily will increase to twice daily for flare. Stop prednisone Discussed not getting prednisone from other sources Plan Orders this visit: Office Visit on 04/03/24 allopurinol (ZYLOPRIM) 100 mg tablet Clindamycin-Benzoyl Peroxide 1-5 % gel Allopurinol 200mg daily Same time daily Colchicine once daily May take twice daily for flare until it resolves about 3-5 days Meloxicam daily as needed with food Stop prednisone Recheck labs prior to visit GOUT is caused by high uric acid levels which become crystals that collect in joints. Solid deposits called tophi can develop after years and deposit in joints, cartilage, kidney and bones. Attacks create severe pain and swelling, and may have chills, fevers and appetite loss. Attack risks include: increase or fluctuation in uric acid levels, certain medications, dehydration, trauma or injury, illness or physical stress, alcohol (especially beer and liquor) and certain foods. Management of Gout includes: Rest, applying cold, and protecting the affected joint with splints can promote recovery. To prevent attacks it is crucial to keep the uric acid levels closer or lower to 6 mg/dL with a uric acid lowering medication, in addition to: 1. Reduce alcohol intake, especially beer and liquor. 2. Avoid organ meats, shellfish and high quantities of anchovies, sardines, cornelius, organ meats (eg, liver). 3. Increased intake of dark berries (blueberries, blackberries and cherries). Soybeans and tofu may help. 4. Maintain a healthy weight and drink plenty of fluids to avoid dehydration. 5. Avoid trauma or injury to joints. 6. Take your Gout medications as we have discussed and per our prescription. 7. Continue regular follow up with your primary care physician and regular monitoring for blood pressure, avoiding obesity, follow up for heart disease and stroke prevention. The current recommendations include reducing intake of red meat and seafood, and increasing intake of low fat dairy products and complex carbohydrates. Reducing intake of beer and hard alcohol (eg, gin, vodka) is recommended because these beverages have been shown to increase the risk of a gout attack. High-fructose corn syrup products, (such as some types of non-diet soda) increase blood urate levels and are not recommended. Return for as scheduled . I spent a total of 34 minutes on the date of the service which included preparing to see the patient, [id number] patient care, completing clinical documentation, obtaining and/or reviewing separately obtained history, performing a medically appropriate examination, counseling and educating the patient/family/caregiver, and ordering medications, tests, or proceduresPortions of this note have been copied from my previous note and have been updated to reflect today's visit note April 03, 2024 all reflect current medical decision making from date of this visit. Rere Valentino APRN.CNP Rheumatology Date: April 03, 2024 Time: 03:30pm documented in this encounter [facility] 04-03-2024 Note HNO ID: [id number] Author: RERE VALENTINO APRN.CNP Service: ? Author Type: Nurse Practitioner Type: Progress Notes Filed: 04/24/2024 22:26 Note Text: Rheumatology FOLLOW UP VISIT Date of Service: 04/03/2024 Patient: Xiang West Medical Record: [id number] Primary Care Physician: Rere Aguiar MD Last Rheumatology visit: 04/03/2024 (with Rere Valentino) History of Present Illness Xiang West is a 58 year old Black male who presents on 04/03/2024 for an in-person visit for evaluation of Follow Up (Rt knee swelling and soreness -- Prednisone has only taken 2 tabs over the past 4 days-- has only been taking 100mg of Allopurinol daily ). He is currently taking diclofenac sodium. Xiang reports a current pain level of 8 (Knee-Right). He describes the pain as Aching, Sore. The pain is Continuous, and has lasted for 5 Days. Onset of symptoms began at age 48. Xiang is both RF - 10 (12/27/2023) and CCP - 13.5 (12/27/2023) negative. His most recent VIRY was negative (12/27/2023). There are no rheumatoid nodules present. Xiang has joint swelling (Kees, ankles, hands - pips). Xiang reports he does not have any morning stiffness. HISTORY OF PRESENT ILLNESS Only see rheumatology 1 visit in the past Multiple ER visits for joint pain History gout? Allopurinol 100mg daily Went to ER twice in last few weeks Several years joint Intermittent can go months without anything or multiple times month Pains - Knees, ankles, pips, mcps, toes Swelling - ankles , toes, knees, pips, mcps Am stiffness - no If joints stiff and swollen only gets worse not better Feels locked in position Unless having flare no am stiffness Last time could not get out of bed for 4 days Could not bend either knees Painful stiff swelling Used to be able to work it out but not does not stop pain gets worse Pain stiffness swelling relieved with prednisone No redness Does have tenderness when happens No known history RA or lupus Family history gout Not increased stress No infection proceeding INTERVAL HISTORY Right knee pain 5 days Has not needed er for knee since Nov Not as bad Allopurinol 100mg daily Instead of 2 daily he has only been taking one Took pred 2 days in row Mobic daily and colchicine once daily Vit d 2 capsules daily Musculoskeletal History Age at start of MSK symptoms: 48 years Joint pain: right knee, left knee, right ankle, left ankle, right MCP, right PIP, left MCP, left PIP, right toes, left toes, right MTP, left MTP No gelling Joint swelling (Comment: Kees, ankles, hands - pips) Anything make it better?: Yes (Comment: prednisone, pains meds,) Knee popping, locking, or clicking?: Yes (Comment: feels straight locked because swelling) Knee gives way or falls?: No No joint replacements Other Arthritis-related Surgery Location Date Comment right elbow sx Gout History Frequency of attacks at initial presentation: patient is unsure sometimes called gout attacks and other times not . he is not sure. more frequently RISK FACTORS No diuretic use No use of low dose aspirin No use of cyclosporine Family history: uncle Diet: cutting back recently on red meat, trying to increase water intake No chronic kidney disease Hypertension No congestive heart failure No coronary artery disease No obstructive sleep apnea No history of kidney stones No metabolic disease No solid organ transplant Pain Evaluation 04/20/2023 04/28/2023 12/27/2023 03/15/2024 04/03/2024 Pain Evaluation Pain Score 8 7 4 8 Location Hand-Left Hand-Left Knee-Right Knee-Right Knee-Right Description Aching;Throbbing;Sore;Shooting Sharp;Stabbing;Throbbing;Aching;S ore;Numbness;Tingling Aching Aching Aching;Sore Duration (#) 1 2 2 5 Duration (Timeframe) Weeks Weeks Days Unknown Days Frequency Continuous Intermittent Continuous Intermittent Continuous Intervention Medication Medication Patient-Entered Data PROMIS Assessments No data to display No data to display No data to display No data to display RAPID 3 Maher Activities of Daily Living No Data Dress self? - Get in and out of bed? - Walk outdoors? - Wash and dry body? - Get in and out of car? - RAPID 3 Disease Activity Weighed Score Levels: 0 - 1: Near Remission 1.3 - 2.0: Low Severity 2.3 -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 stiffness swelling relieved with prednisone No redness Does have tenderness when happens No known history RA or lupus Family history gout Not increased stress No infection proceeding INTERVAL HISTORY Walking more Right knee started with pain Feels tight Started 3-4 days ago He thinks it was alittle swollen ? Swelling now Took pred 10mg for 2 days Was taking mobic Did not have any recent sudden Attacks of knee locking / and severe swelling Feeling much better than he as prior [facility] is where he goes Prescribed allopurinol 200mg daily Was confused and taking 400mg daily maybe for 3 weeks Drinking plenty water Musculoskeletal History Age at start of MSK symptoms: 48 years Joint pain: right knee, left knee, right ankle, left ankle, right MCP, right PIP, left MCP, left PIP, right toes, left toes, right MTP, left MTP No gelling Joint swelling (Comment: Kees, ankles, hands - pips) Anything make it better?: Yes (Comment: prednisone, pains meds,) Knee popping, locking, or clicking?: Yes (Comment: feels straight locked because swelling) Knee gives way or falls?: No No joint replacements Other Arthritis-related Surgery Location Date Comment right elbow sx Gout History Frequency of attacks at initial presentation: patient is unsure sometimes called gout attacks and other times not . he is not sure. more frequently RISK FACTORS No diuretic use No use of low dose aspirin No use of cyclosporine Family history: uncle Diet: cutting back recently on red meat, trying to increase water intake No chronic kidney disease Hypertension No congestive heart failure No coronary artery disease No obstructive sleep apnea No history of kidney stones No metabolic disease No solid organ transplant Pain Evaluation 09/03/2017 04/20/2023 04/28/2023 12/27/2023 03/15/2024 Pain Evaluation Pain Score 9 8 7 4 Location Hand-Right Hand-Left Hand-Left Knee-Right Knee-Right Location Comment Right middle finger Description Pressure;Tingling Aching;Throbbing;Sore;Shooting Sharp;Stabbing;Throbbing;Aching;S ore;Numbness;Tingling Aching Aching Duration (#) 2 1 2 2 Duration (Timeframe) Months Weeks Weeks Days Unknown Frequency Continuous Continuous Intermittent Continuous Intermittent Intervention Medication Medication Medication Patient-Entered Data PROMIS Assessments No data to display No data to display No data to display No data to display RAPID 3 Maher Activities of Daily Living No Data Dress self? - Get in and out of bed? - Walk outdoors? - Wash and dry body? - Get in and out of car? - RAPID 3 Disease Activity Weighed Score Levels: 0 - 1: Near Remission 1.3 - 2.0: Low Severity 2.3 - 4.0: Moderate Severity 4.3 - 10.0: High Severity No data to display Review of Systems Review of Systems CONSTITUTION: Negative for: Weight loss or gain, Fever. Chills, Night sweats HEENT: Negative for: Nosebleeds, Mouth sores, Trouble swallowing, Dry mouth RESPIRATORY: Negative for: Cough, Shortness of breath, Pain with breathing, Coughing up blood GASTROINTESTINAL: Negative for: Melena, Diarrhea, Abdominal pain, Heartburn, MUSCULOSKELETAL: Positive for: Arthralgias (right knee) Negative for: Myalgias, Muscle weakness, Joint swelling and Morning Joint Stiffness NEUROLOGICAL: Negative for: Headaches, Numbness, Memory loss, SKIN: Negative for: Rashes, Sun sensitive rashes, Skin color changes, Hair loss, Nail changes EYES: Negative for: Eye pain, Eye redness, Visual disturbance, Eye dryness CARDIOVASCULAR: Negative for: Chest pain, Leg swelling, Arrhythmia, Presyncope GENITOURINARY: Negative for: Dysuria, Hematuria, Ulceration HEMATOLOGIC/LYMPHATIC: Negative for: Swollen glands All other reviewed and negative other than HPI. Past Medical History PAST MEDICAL HISTORY Diagnosis Date Hypertension Past Surgical History PAST SURGICAL HISTORY Procedure Laterality Date COLONOSCOPY FLX DX W/COLLJ SPEC WHEN PFRMD 02/04/2015 Colonoscopy Family History FAMILY HISTORY Problem Relation Age of Onset Asthma Father Cancer Mother thyroid Social History Social History Tobacco Use Smoking status: Never Passive exposure: Never Smokeless tobacco: Never Vaping Use Vaping Use: Never used Substance Use Topics Alcohol use: Yes Comment: occasional use Drug use: No Current Medications Musculoskeletal Pain - Treatments Tried Ice: Yes more painful Heat: No Brace: No NSAIDs/Tylenol: Yes Treatment Start Date Stop Date Stop Reason Comment asa does not help motrin, ibuprofen does not help mobic helps Gout Treatments Treatment Start Date Stop Date Stop Reason Comment allopurinol current Prednisone Treatments Treatment Start Date Stop Date Stop Reason Comment frequently with ER visits helps resolve flares Current Outpatient Medications Medication Sig meloxicam (MOBIC) 7.5 mg tablet Take 1 tablet by mouth every afternoon. clobetasol (TEMOVATE) 0.05 % cream Clindamycin Phosphate (CLEOCIN T) 1 % lotion BP WASH 2.5 % allopurinol (ZYLOPRIM) 200 mg tablet Take 1 tablet (200 mg) by mouth once daily. amLODIPine (NORVASC) 10 mg tablet Take one(1) tablet daily. dupilumab (DUPIXENT SYRINGE) 100 mg/0.67 mL injection Inject 100 mg subcutaneously every 2 weeks. diclofenac (VOLTAREN) 1 % topical gel Apply 2 g to affected area four times a day as needed. TO PAINFUL JOINTS , AVOID CONTACT WITH EYES, DO NOT EXCEED 32GM/DAY Cholecalciferol, Vitamin D3, (VITAMIN D) 25 mcg (1,000 unit) cap Take 2 capsules by mouth once daily. colchicine 0.6 mg tablet May take twice daily for first day then once daily there after lidocaine (LIDODERM) 5 % Apply 1 Patch as directed once daily. TO AFFECTED AREA. REMOVE AFTER 12 HOURS. doxycycline monohydrate 100 mg tablet CERAVE iv contrast (will be provided with radiology test) MRI Neck Inject, intravenously, once for 1 dose. No IV access, insert saline lock prior to the beginning of sedation, infusion, injection of imaging exam. Discontinue saline lock post exam. If Pt. has a central line or IVAD, may access for administration according to line specific nursing protocol. Once exam is complete flush line and de-access according to line specific nursing protocol in the MR contrast administration guidelines link. predniSONE (DELTASONE) 5 mg tablet Take 1 tablet by mouth once daily. Then stop. No other nsaids . With food. (Patient taking differently: Take 5 mg by mouth once daily. Then stop. No other nsaids . With food. As needed) oxyCODONE-acetaminophen (PERCOCET) 5-325 mg tablet Take one(1) tablet every six(6) hours as needed. (Patient not taking: Reported on 02/02/2024) Labs Latest Ref Rng & Units 12/27/2023 03/06/2024 CBC WBC 3.70 - 11.00 k/uL 10.95 9.50 Hemoglobin 13.0 - 17.0 g/dL 14.9 14.1 Hematocrit 39.0 - 51.0 % 45.7 43.5 Platelet Count 150 - 400 k/uL 262 311 Abs Neut (ANC) 1.45 - 7.50 k/uL 6.24 5.77 Abs Lymph 1.00 - 4.00 k/uL 3.84 2.91 Latest Ref Rng & Units 12/27/2023 02/02/2024 03/06/2024 CMP Sodium 136 - 144 mmol/L 140 142 Potassium 3.7 - 5.1 mmol/L 4.3 4.1 Chloride 97 - 105 mmol/L 101 106 CO2 22 - 30 mmol/L 27 25 Glucose 74 - 99 mg/dL 91 74 BUN 9 - 24 mg/dL 15 17 Creatinine 0.73 - 1.22 mg/dL 1.32 1.03 1.03 Calcium 8.5 - 10.2 mg/dL 8.9 9.1 AST 14 - 40 U/L 15 23 ALT 10 - 54 U/L 17 18 Alkaline Phosphatase 38 - 113 U/L 99 93 Latest Ref Rng & Units 12/27/2023 03/06/2024 Uric Acid Uric Acid 4.0 - 8.1 mg/dL 8.3 2.7 Latest Ref Rng & Units 12/27/2023 02/02/2024 ESR, WSR WSR 0 - 15 mm/hr 34 34 Latest Ref Rng & Units 12/27/2023 02/02/2024 CRP CRP <0.9 mg/dL 1.5 1.0 Latest Ref Rng & Units 12/27/2023 C3, C4 C3 86 - 166 mg/dL 145 C4 13 - 46 mg/dL 42 Latest Ref Rng & Units 12/27/2023 RF and CCP Rheumatoid Factor <16 IU/mL 10 CCP Antibody IgG Qualitative Negative Negative CCP Antibody, IgG <20 Units <15 Latest Ref Rng & Units 12/27/2023 Hepatitis Screen Hep B Core Ab, Total Negative Negative Hep B Surf Ab Qual Negative Hep C Antibody IA Negative Negative Hep B Surface Ag Negative Negative 12/27/2023 TB Screen TB Interpretation Infection with M. tuberculosis complex is unlikely. If latent tuberculosis infection is highly suspected, a negative result does not rule out the infection. Specimens from immunocompromised patients and those <5 years of age may show false negative results. In case of a contact investigation, please repeat 8-12 weeks after a known exposure. TB Result Negative Latest Ref Rng & Units 12/27/2023 Antibodies VIRY Negative Negative Latest Ref Rng & Units 12/27/2023 Urinalysis Protein, Urine Negative Negative RBC, Urine 0-2 /HPF 0-2 /HPF Latest Ref Rng & Units 12/27/2023 TPMT amd G6PD G-6-PD Quantitative 9.8 - 15.5 U/g Hb 11.9 Imaging Last XR Knee - Impression Only XR KNEE GENERAL 4V AP BOTH/PA BOTH/LAT/MERC BILATERAL Exam End: 12/27/2023 1:33 PM (Final result) Impression: IMPRESSION: 1. Mild bilateral knee osteoarthritis Weekend Anchor: BETTY Transcribe Date/Time: Dec 27 2023 3:18P Dictated by : TAHIR YORK MD... Last CT Knee - Impression Only CT KNEE WO IVCON RIGHT Exam End: 02/09/2024 12:39 PM (Final result) Impression: IMPRESSION: No findings to suggest gout. Weekend Anchor: BETTY Transcribe Date/Time: Feb 09 2024 12:46P ... Last XR Knee - Impression Only XR KNEE GENERAL 4V AP BOTH/PA BOTH/LAT/MERC BILATERAL Exam End: 12/27/2023 1:33 PM (Final result) Impression: IMPRESSION: 1. Mild bilateral knee osteoarthritis Weekend Anchor: BETTY Transcribe Date/Time: Dec 27 2023 3:18P Dictated by : TAHIR YORK MD... Last CT Knee - Impression Only CT KNEE WO IVCON RIGHT Exam End: 02/09/2024 12:39 PM (Final result) Impression: IMPRESSION: No findings to suggest gout. Weekend Anchor: [facility] Transcribe Date/Time: Feb 09 2024 12:46P ... Last XR Femur - Impression Only No resulted procedures found. Last XR Tibia & Fibula - Impression Only No resulted procedures found. Last XR Chest - Impression Only No resulted procedures found. Health Maintenance Current Immunizations Reviewed on 03/14/2024 Name Date tetanus diphtheria pertussis (Tdap) vaccine 10/13/2022 , 08/10/2016 , 12/14/2014 Physical Exam GENERAL APPEARANCE: Well groomed. Alert and oriented x 3. In no distress. VITAL SIGNS: BP 156/90 Pulse 67 Temp 98.3 Wt 256 lb 8.1 oz (116.4kg) SpO2 100% Physical Exam SKIN: No rash, thickening, nodules, discoloration. EYES: PERRL, EOMI HENT: Normal external examination of the ears and nose, lips, oropharynx and tongue. No oropharyngeal lesions, exudate, or sores. NECK: No mass or asymmetry. RESPIRATORY: Normal respiratory effort. Clear to auscultation and percussion. CARDIOVASCULAR: Heart RRR without gallop, murmur, or rub ABDOMEN: BS normal. No bruits, No tenderness, mass, or hepatosplenomegaly. NEUROLOGIC: Sensory exam normal. MUSCULOSKELETAL EXAMINATION: Soft tissue tender points: None Motor exam: Normal 5+/5+ muscle strength. Normal bulk and tone. Spine: Cervical spine: No visible abnormalities. Full ROM. No tenderness to palpation. Thoracic spine: No visible abnormalities. No tenderness to palpation. Lumbar spine: No visible abnormalities. Full ROM. No tenderness to palpation SI Joints: No tenderness to palpation. Negative Eusebia s Test Upper extremities: Shoulders: Full ROM in all viera, no tenderness to palpation. No swelling or effusion. Negative impingement signs via Neer s Test and Hawkin s Test. Negative Job s Test. Negative Speed s Test and Yergason s Test for biceps tendon. Elbows: Full ROM in flexion and extension. No swelling or effusion. No tenderness to palpation to the joint line, olecranon, medial or lateral epicondyles. Wrists: Full ROM in all ivera. No swelling or synovitis. No pain with pronation/supination. No tenderness to palpation Hands: Full ROM in flexion and extension. Full web services developer strength. No swelling or synovitis along the MCPs, PIPs, and DIPs. No tenderness along the MCPs, PIPs, and DIPs. Negative Arlen s test. Lower extremities: Hips: Full ROM without pain. No tenderness to palpation along greater trochanter, gluteal fossa, or piriformis. Negative log roll. Negative ELIZABETH and FADIR tests. Knees: Full ROM in flexion and extension. No swelling or effusion. No tenderness to palpation. Negative patellar apprehension and glide. Negative patellar crepitus and grind. Negative provocative exams including Zahra s, valgus stress at 0 and 30 degrees, varus stress at 0 and 30 degrees, McMurrays Test, and Posterior Drawer. Ankles: Full ROM in all viera. No swelling or effusion. No tenderness to palpation along the joint line, medial/lateral malleolus, ATFL, PTFL, CFL, or Achilles Tendon. Feet: Full ROM in toe flexion/extension. No effusion. No tenderness to palpation. No evidence of MTP swelling. There is currently no information documented on the homunculus. Go to the Rheumatology activity and complete the homunculus joint exam. Joint Exam 03/15/2024 No joint exam has been documented for this visit Joint Exam Data (across time) Impression Diagnoses: (M10.9) Gout with manifestations (primary encounter diagnosis) (E55.9) Vitamin D deficiency (M25.571, G89.29, M25.572) Chronic pain of both ankles (M25.561, M25.562, G89.29) Chronic pain of both knees Reports history gout on allopurinol ? Inflammatory arthritis Family hisotry gout No family history inflammatory arthritis. In past -Rf-ccp He has went to the ER about once a month starting in 2021 for joint pain. Pain in hands pips,mcps, knees, and ankles. Prior joint effusions on xrays Intermittent swelling in ankles, knees and hands pips and mcps. Today only the right knee has trace synovitis. Recently on prednisone for flare. Will order labs, Us hands / ankles, xrays knees, ankles, hands History vit d def - not taking will recheck Recent bx of skin on legs black discoloration- patient will continue to follow for results -RF-CCP-VIRY Hyperuricemia 8.3 Vit d def - started on vit d rx Hands-Mild osteoarthritis Ankle- Bilateral talocalcaneal tarsal coalition.- referred to podiatry Knees-Mild bilateral knee osteoarthritis US- Nonspecific active synovitis in the left second MTP joint. No active synovitis or tenosynovitis in the hands or wrists. Will check CT low dose to check for gout Patient scheduled Started on pred Increased allopurinol 200mg daily Plan Orders this visit: Office Visit on 03/15/24 Cholecalciferol, Vitamin D3, (VITAMIN D) 25 mcg (1,000 unit) cap colchicine 0.6 mg tablet lidocaine (LIDODERM) 5 % May use heat/ otc , lidocaine patches, volatren gel for pain Pred Derm for any skin changes allopurinol from 200mg daily Recheck labs in 1 month Return labs next month, for labs prior to appt . I spent a total of 33 minutes on the date of the service which included preparing to see the patient, [id number] patient care, completing clinical documentation, obtaining and/or reviewing separately obtained history, performing a medically appropriate examination, counseling and educating the patient/family/caregiver, and ordering medications, tests, or procedures. Portions of this note have been copied from my previous note and have been updated to reflect today's visit note March 15, 2024 all reflect current medical decision making from date of this visit. Rere Valentino APRN.CNP Rheumatology Date: March 15, 2024 Time: 8:00am documented in this encounter [facility] 03-15-2024 Note HNO ID: [id number] Author: RERE VALENTINO APRN.CNP Service: ? Author Type: Nurse Practitioner Type: Progress Notes Filed: 03/15/2024 22:52 Note Text: Rheumatology FOLLOW UP VISIT Date of Service: 03/15/2024 Patient: Xiang West Medical Record: [id number] Primary Care Physician: Rere Aguiar MD Last Rheumatology visit: 02/02/2024 (with Rere Valentino) History of Present Illness Xiang West is a 58 year old Black male who presents on 03/15/2024 for an in-person visit for evaluation of Right Knee Pain (continues to have R knee pain, stiffness and swelling -- last dose of Prednisone 4 days ago -- requesting refill of Prednisone, Vit D and lidocaine patch ). He is currently taking diclofenac sodium, prednisone. Xiang reports a current pain level of 4 (Knee-Right). He describes the pain as Aching. The pain is Intermittent . Onset of symptoms began at age 48. Xiang is both RF - 10 (12/27/2023) and CCP - 13.5 (12/27/2023) negative. His most recent VIRY was negative (12/27/2023). There are no rheumatoid nodules present. Xiang has joint swelling (Kees, ankles, hands - pips). Xiang reports he does not have any morning stiffness. HISTORY OF PRESENT ILLNESS Only see rheumatology 1 visit in the past Multiple ER visits for joint pain History gout? Allopurinol 100mg daily Went to ER twice in last few weeks Several years joint Intermittent can go months without anything or multiple times month Pains - Knees, ankles, pips, mcps, toes Swelling - ankles , toes, knees, pips, mcps Am stiffness - no If joints stiff and swollen only gets worse not better Feels locked in position Unless having flare no am stiffness Last time could not get out of bed for 4 days Could not bend either knees Painful stiff swelling Used to be able to work it out but not does not stop pain gets worse Pain stiffness swelling relieved with prednisone No redness Does have tenderness when happens No known history RA or lupus Family history gout Not increased stress No infection proceeding INTERVAL HISTORY Walking more Right knee started with pain Feels tight Started 3-4 days ago He thinks it was alittle swollen ? Swelling now Took pred 10mg for 2 days Was taking mobic Did not have any recent sudden Attacks of knee locking / and severe swelling Feeling much better than he as prior [facility] is where he goes Prescribed allopurinol 200mg daily Was confused and taking 400mg daily maybe for 3 weeks Drinking plenty water Musculoskeletal History Age at start of MSK symptoms: 48 years Joint pain: right knee, left knee, right ankle, left ankle, right MCP, right PIP, left MCP, left PIP, right toes, left toes, right MTP, left MTP No gelling Joint swelling (Comment: Kees, ankles, hands - pips) Anything make it better?: Yes (Comment: prednisone, pains meds,) Knee popping, locking, or clicking?: Yes (Comment: feels straight locked because swelling) Knee gives way or falls?: No No joint replacements Other Arthritis-related Surgery Location Date Comment right elbow sx Gout History Frequency of attacks at initial presentation: patient is unsure sometimes called gout attacks and other times not . he is not sure. more frequently RISK FACTORS No diuretic use No use of low dose aspirin No use of cyclosporine Family history: uncle Diet: cutting back recently on red meat, trying to increase water intake No chronic kidney disease Hypertension No congestive heart failure No coronary artery disease No obstructive sleep apnea No history of kidney stones No metabolic disease No solid organ transplant Pain Evaluation 09/03/2017 04/20/2023 04/28/2023 12/27/2023 03/15/2024 Pain Evaluation Pain Score 9 8 7 4 Location Hand-Right Hand-Left Hand-Left Knee-Right Knee-Right Location Comment Right middle finger Description Pressure;Tingling Aching;Throbbing;Sore;Shooting Sharp;Stabbing;Throbbing;Aching;S ore;Numbness;Tingling Aching Aching Duration (#) 2 1 2 2 Duration (Timeframe) Months Weeks Weeks Days Unknown Frequency Continuous Continuous Intermittent Continuous Intermittent Intervention Medication Medication Medication Patient-Entered Data PROMIS Assessments No data to display No data to display No data to display No data to display RAPID 3 Maher Activities of Daily Living No Data Dress self? - Get in and out of bed? - Walk outdoors? - Wash and dry body? - Get in and out of car? - RAPID 3 Disease Activity Weighed Score Levels: 0 - 1: Near Remission 1.3 - 2.0: Low Severity 2.3 - 4.0: Moderate Severity 4.3 - 10.0: High Severity No data to display Review of Systems Review of Systems CONSTITUTION: Negative for: Weight loss or gain, Fever. Chills, Night sweats HEENT: Negative for: Nosebleeds, Mouth sores, Trouble swallowing, Dry mouth RESPIRATORY: Negative for: Cough, Shortness of breath, Pain with breathing, Coughing up bl (more content not included)... [facility] 03-14-2024 Instructions Peggy Hunter MD - 03/14/2024 12:59 PM EDT Call to schedule the MRI documented in this encounter [facility] 03-13-2024 Miscellaneous Notes Pablo is calling Rere Valentino APRN.CNP today with concern regarding his R knee pain. He states it started to hurt again, so he has started taking the prednisone again and has had improvement. Pablo made an appointment for 03/15 to discuss possibly only taking the medication when his knee is hurting. No action needed at this time. Patient has been identified by name and birthdate. Duration of symptoms: N/A Person calling: self Return call phone: on cell [phone] (home) [phone] (cell) Was an appointment scheduled: Yes: Date/Time: 03/15/2024 0800 Closing statement: Results or non-symptom based questions: Thank you for calling [facility], your call will be returned within the next business day. LORENZO [place] POST (Patient Operations Support Team) Please note: Please do not re-route encounters back to this agent, please send to appropriate office pool. Agent works in operations center and cannot complete patient specific tasks. documented in this encounter [facility] 02-28-2024 Miscellaneous Notes Patient returned call and was given message below. Patient had no further questions at this time. -Called and left message on pt's VM for pt to call back to the office to receive the message below. CT knee normal documented in this encounter [facility] 02-09-2024 Note HNO ID: [id number] Author: TOI WOODSON CT Service: ? Author Type: Nursing Resident Type: Progress Notes Filed: 02/09/2024 12:37 Note Text: Radiology Service Progress Note PATIENT NAME: Xiang West DATE OF SERVICE: February 09, 2024 TIME: 12:36 PM PATIENT IDENTITY VERIFICATION COMPLETED USING TWO (2) IDENTIFIERS: Name and Date of confirmed by patient verbally and Name and Date of confirmed by identification band. FALL SCREENING: Has the patient had 2 falls in the last year or 1 fall with injury or currently using an Ambulatory Assistive Device (Walker, Cane, Wheelchair, Crutches, etc.)? 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 FALL SCREENING: Has the patient had 2 falls in the last year or 1 fall with injury or currently using an Ambulatory Assistive Device (Walker, Cane, Wheelchair, Crutches, etc.)? No PATIENT GENDER DATA: Male PATIENT RELEVANT IMPLANT DATA REVIEWED: Not Applicable PATIENT PRESENTS WITH AN IMPLANTABLE OR ATTACHED WATERWORKS PUMP STATION OPERATOR: No RADIOLOGY DEPARTMENT: CT; Exam(s) Completed: KNEE - DUAL ENERGY PERIPHERAL IV DATA: Not applicable SIGNED BY: KERRY Carlin February 09, 2024 12:36 PM documented in this encounter [facility] 02-08-2024 Miscellaneous Notes Reviewed patients chart. Patient is scheduled CT knee for 02/09/24 at 12:45pm Approved CT right knee Auth # [id number] Dates approved 01/27/2024 -03/27/2024 Please schedule within these date Spoke with patient states appt was scheduled due to insufficient chart notes to support the need for Ct scan Please advise chart note still open -- please review Appt today will be canceled - pt aware Called pt - left vm to return call Pt is on Rere's schedule for today @ 230pm , however we had just seen him in the office on 02/01 pt is to follow up in [facility] for repeat labs - Unsure reason for visit -- please cancel if this is in error CT scheduled for 02/08 documented in this encounter [facility] 02-08-2024 Miscellaneous Notes Rx sent Patient returning call, given message noted below. Verbalized understanding, no further questions at this time. Patient is asking for a new Rx for the 200 mg tabs be sent to pharmacy on file. Left message for patient to call office regarding below. Please call patient Some inflammation on labs 'normal kidney function Please increase allopurinol 200mg once daily Same time every day Recheck labs in 1 month Component Latest Ref Rng & Units 02/02/2024 Creatinine 0.73 - 1.22 mg/dL 1.03 eGFR >=60 mL/min/1.73m 83 CRP <0.9 mg/dL 1.0 (H) WSR 0 - 15 mm/hr 34 (H) documented in this encounter [facility] 02-02-2024 Note HNO ID: [id number] Author: RERE VALENTINO APRN.CNP Service: ? Author Type: Nurse Practitioner Type: Progress Notes Filed: 02/28/2024 17:08 Note Text: Rheumatology FOLLOW UP VISIT Referring Provider: Date of Service: 02/02/2024 Gender: male Ethnicity: Black Age: [age] year old Chief Complaint: F/U 1 month (Joint pain -- US yesterday -- Rt foot pain x 3 days ago --) Last Rheumatology visit: 02/02/2024 (with Rere Valentino) Xiang West is a 58 year old Black male who presents on 02/02/2024 for in person visit for follow-up of F/U 1 month (Joint pain -- US yesterday -- Rt foot pain x 3 days ago --). He is currently taking diclofenac sodium, prednisone. INTERVAL HISTORY Lidocaine patches help Had pain in right ankle lidocaine Stopped mobic On prd 5mg daily taper Allopurinol 100mg daily No pain 'no swelling No swelling toes FROM PAIN EVALUATION No data found in the last 1 encounters. Impression Diagnoses: (E79.0) Hyperuricemia (primary encounter diagnosis) (M25.40) Joint swelling (E55.9) Vitamin D deficiency (M25.50) Pain in joint, multiple sites Reports history gout on allopurinol ? Inflammatory arthritis Family hisotry gout No family history inflammatory arthritis. In past -Rf-ccp He has went to the ER about once a month starting in 2021 for joint pain. Pain in hands pips,mcps, knees, and ankles. Prior joint effusions on xrays Intermittent swelling in ankles, knees and hands pips and mcps. Today only the right knee has trace synovitis. Recently on prednisone for flare. Will order labs, Us hands / ankles, xrays knees, ankles, hands History vit d def - not taking will recheck Recent bx of skin on legs black discoloration- patient will continue to follow for results -RF-CCP-VIRY Hyperuricemia 8.3 Vit d def - started on vit d rx Hands-Mild osteoarthritis Ankle- Bilateral talocalcaneal tarsal coalition.- referred to podiatry Knees-Mild bilateral knee osteoarthritis US- Nonspecific active synovitis in the left second MTP joint. No active synovitis or tenosynovitis in the hands or wrists. Will check CT low dose to check for gout Patient scheduled Started on pred Increased allopurinol 200mg daily Plan May use heat/ otc , lidocaine patches, volatren gel for pain Pred taper Derm for any skin changes allopurinol from 200mg daily Recheck labs in [address] Return labs today and in 1 month, for 2 months . I spent a total of 35 minutes on the date of the service which included preparing to see the patient, [id number] patient care, completing clinical documentation, obtaining and/or reviewing separately obtained history, performing a medically appropriate examination, counseling and educating the patient/family/caregiver, and ordering medications, tests, or proceduresPortions of this note have been copied from my previous note and have been updated to reflect today's visit note February 02, 2024 all reflect current medical decision making from date of this visit. Rere Valentino APRN.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 cc: PCP: Rere Aguiar MD ([facility]) [address] [place] [id number] Subjective HISTORY OF PRESENT ILLNESS Only see rheumatology 1 visit in the past Multiple ER visits for joint pain History gout? Allopurinol 100mg daily Went to ER twice in last few weeks Several years joint Intermittent can go months without anything or multiple times month Pains - Knees, ankles, pips, mcps, toes Swelling - ankles , toes, knees, pips, mcps Am stiffness - no If joints stiff and swollen only gets worse not better Feels locked in position Unless having flare no am stiffness Last time could not get out of bed for 4 days Could not bend either knees Painful stiff swelling Used to be able to work it out but not does not stop pain gets worse Pain stiffness swelling relieved with prednisone No redness Does have tenderness when happens No known history RA or lupus Family history gout Not increased stress No infection proceeding INTERVAL HISTORY Lidocaine patches help Had pain in right ankle lidocaine Stopped mobic On prd 5mg daily taper Allopurinol 100mg daily No pain 'no swelling No swelling toes FROM Disease History Gout History Frequency of attacks at initial presentation: patient is unsure sometimes called gout attacks and other times not . he is not sure. more frequently RISK FACTORS No diuretic use No use of low dose aspirin No use of cyclosporine Family history: uncle Diet: cutting back recently on red meat, trying to increase water intake No chronic kidney disease Hypertension No congestive heart failure No coronary artery disease No obstructive sleep apnea No history of kidney stones No metabolic disease No solid organ transplant Alcohol Use: Yes (occasional use) Autoimmune Disease (more content not included)... [facility] 02-02-2024 History of Present illness Narrative Images from the original note were not included. Rheumatology FOLLOW UP VISIT Referring Provider: Date of Service: 02/02/2024 Gender: male Ethnicity: Black Age: [age] year old Chief Complaint: F/U 1 month (Joint pain -- US yesterday -- Rt foot pain x 3 days ago --) Last Rheumatology visit: 02/02/2024 (with Rere Valentino) Xiang West is a 58 year old Black male who presents on 02/02/2024 for in person visit for follow-up of F/U 1 month (Joint pain -- US yesterday -- Rt foot pain x 3 days ago --). He is currently taking diclofenac sodium, prednisone. INTERVAL HISTORY Lidocaine patches help Had pain in right ankle lidocaine Stopped mobic On prd 5mg daily taper Allopurinol 100mg daily No pain 'no swelling No swelling toes FROM PAIN EVALUATION No data found in the last 1 encounters. Impression Diagnoses: (E79.0) Hyperuricemia (primary encounter diagnosis) (M25.40) Joint swelling (E55.9) Vitamin D deficiency (M25.50) Pain in joint, multiple sites Reports history gout on allopurinol ? Inflammatory arthritis Family hisotry gout No family history inflammatory arthritis. In past -Rf-ccp He has went to the ER about once a month starting in 2021 for joint pain. Pain in hands pips,mcps, knees, and ankles. Prior joint effusions on xrays Intermittent swelling in ankles, knees and hands pips and mcps. Today only the right knee has trace synovitis. Recently on prednisone for flare. Will order labs, Us hands / ankles, xrays knees, ankles, hands History vit d def - not taking will recheck Recent bx of skin on legs black discoloration- patient will continue to follow for results -RF-CCP-VIRY Hyperuricemia 8.3 Vit d def - started on vit d rx Hands-Mild osteoarthritis Ankle- Bilateral talocalcaneal tarsal coalition.- referred to podiatry Knees-Mild bilateral knee osteoarthritis US- Nonspecific active synovitis in the left second MTP joint. No active synovitis or tenosynovitis in the hands or wrists. Will check CT low dose to check for gout Patient scheduled Started on pred Increased allopurinol 200mg daily Plan May use heat/ otc , lidocaine patches, volatren gel for pain Pred taper Derm for any skin changes allopurinol from 200mg daily Recheck labs in [address] Return labs today and in 1 month, for 2 months . I spent a total of 35 minutes on the date of the service which included preparing to see the patient, [id number] patient care, completing clinical documentation, obtaining and/or reviewing separately obtained history, performing a medically appropriate examination, counseling and educating the patient/family/caregiver, and ordering medications, tests, or proceduresPortions of this note have been copied from my previous note and have been updated to reflect today's visit note February 02, 2024 all reflect current medical decision making from date of this visit. Rere Valentino APRN.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 cc: PCP: Rere Aguiar MD ([facility]) [address] [place] [address] Subjective HISTORY OF PRESENT ILLNESS Only see rheumatology 1 visit in the past Multiple ER visits for joint pain History gout? Allopurinol 100mg daily Went to ER twice in last few weeks Several years joint Intermittent can go months without anything or multiple times month Pains - Knees, ankles, pips, mcps, toes Swelling - ankles , toes, knees, pips, mcps Am stiffness - no If joints stiff and swollen only gets worse not better Feels locked in position Unless having flare no am stiffness Last time could not get out of bed for 4 days Could not bend either knees Painful stiff swelling Used to be able to work it out but not does not stop pain gets worse Pain stiffness swelling relieved with prednisone No redness Does have tenderness when happens No known history RA or lupus Family history gout Not increased stress No infection proceeding INTERVAL HISTORY Lidocaine patches help Had pain in right ankle lidocaine Stopped mobic On prd 5mg daily taper Allopurinol 100mg daily No pain 'no swelling No swelling toes FROM Disease History Gout History Frequency of attacks at initial presentation: patient is unsure sometimes called gout attacks and other times not . he is not sure. more frequently RISK FACTORS No diuretic use No use of low dose aspirin No use of cyclosporine Family history: uncle Diet: cutting back recently on red meat, trying to increase water intake No chronic kidney disease Hypertension No congestive heart failure No coronary artery disease No obstructive sleep apnea No history of kidney stones No metabolic disease No solid organ transplant Alcohol Use: Yes (occasional use) Autoimmune Disease History No dry eyes no dry mouth Musculoskeletal History Age at start of MSK symptoms: 48 years Joint pain: right knee, left knee, right ankle, left ankle, right MCP, right PIP, left MCP, left PIP, right toes, left toes, right MTP, left MTP No gelling Joint swelling (Comment: Kees, ankles, hands - pips) Anything make it better?: Yes (Comment: prednisone, pains meds,) Knee popping, locking, or clicking?: Yes (Comment: feels straight locked because swelling) Knee gives way or falls?: No No joint replacements Other Arthritis-related Surgery Location Date Comment right elbow sx Musculoskeletal History Age at start of MSK symptoms: 48 years Joint pain: right knee, left knee, right ankle, left ankle, right MCP, right PIP, left MCP, left PIP, right toes, left toes, right MTP, left MTP No gelling Joint swelling (Comment: Kees, ankles, hands - pips) Anything make it better?: Yes (Comment: prednisone, pains meds,) Knee popping, locking, or clicking?: Yes (Comment: feels straight locked because swelling) Knee gives way or falls?: No No joint replacements Other Arthritis-related Surgery Location Date Comment right elbow sx Patient-Entered Data PROMIS Assessments No data to display No data to display No data to display No data to display PHQ-9 0 - 4: Minimal Depression 5 - 9: Mild Depression 10 - 14: Moderate Depression 15 - 19: Moderately Severe Depression 20 - 27: Severe Depression No data to display Objective Treatment History Musculoskeletal Pain - Treatments Tried Ice: Yes more painful Heat: No Brace: No NSAIDs/Tylenol: Yes Treatment Start Date Stop Date Stop Reason Comment asa does not help motrin, ibuprofen does not help mobic helps Gout Treatments Treatment Start Date Stop Date Stop Reason Comment allopurinol current Prednisone Treatments Treatment Start Date Stop Date Stop Reason Comment frequently with ER visits helps resolve flares Relevant Previous Investigations Uric Acid Uric Acid Latest Ref Rng & Units 4.0 - 8.1 mg/dL 12/27/2023 8.3 Latest Ref Rng & Units 12/27/2023 CBC WBC 3.70 - 11.00 k/uL 10.95 Hemoglobin 13.0 - 17.0 g/dL 14.9 Hematocrit 39.0 - 51.0 % 45.7 Platelet Count 150 - 400 k/uL 262 Abs Neut (ANC) 1.45 - 7.50 k/uL 6.24 Abs Lymph 1.00 - 4.00 k/uL 3.84 Latest Ref Rng & Units 12/27/2023 02/02/2024 CMP Sodium 136 - 144 mmol/L 140 Potassium 3.7 - 5.1 mmol/L 4.3 Chloride 97 - 105 mmol/L 101 CO2 22 - 30 mmol/L 27 Glucose 74 - 99 mg/dL 91 BUN 9 - 24 mg/dL 15 Creatinine 0.73 - 1.22 mg/dL 1.32 1.03 Calcium 8.5 - 10.2 mg/dL 8.9 AST 14 - 40 U/L 15 ALT 10 - 54 U/L 17 Alkaline Phosphatase 38 - 113 U/L 99 Latest Ref Rng & Units 12/27/2023 02/02/2024 ESR, WSR WSR 0 - 15 mm/hr 34 34 Latest Ref Rng & Units 12/27/2023 02/02/2024 CRP CRP <0.9 mg/dL 1.5 1.0 Latest Ref Rng & Units 12/27/2023 C3, C4 C3 86 - 166 mg/dL 145 C4 13 - 46 mg/dL 42 Latest Ref Rng & Units 12/27/2023 RF and CCP Rheumatoid Factor <16 IU/mL 10 CCP Antibody IgG Qualitative Negative Negative CCP Antibody, IgG <20 Units <15 Latest Ref Rng & Units 12/27/2023 Hepatitis Screen Hep B Core Ab, Total Negative Negative Hep B Surf Ab Qual Negative Hep C Antibody IA Negative Negative Hep B Surface Ag Negative Negative 12/27/2023 TB Screen TB Interpretation Infection with M. tuberculosis complex is unlikely. If latent tuberculosis infection is highly suspected, a negative result does not rule out the infection. Specimens from immunocompromised patients and those <5 years of age may show false negative results. In case of a contact investigation, please repeat 8-12 weeks after a known exposure. TB Result Negative Latest Ref Rng & Units 12/27/2023 Antibodies VIRY Negative Negative Latest Ref Rng & Units 12/27/2023 Urinalysis Protein, Urine Negative Negative RBC, Urine 0-2 /HPF 0-2 /HPF Latest Ref Rng & Units 12/27/2023 TPMT amd G6PD G-6-PD Quantitative 9.8 - 15.5 U/g Hb 11.9 Imaging / Studies Last CT Foot - Impression Only No resulted procedures found. Last CT Hand - Impression Only No resulted procedures found. Review of Systems Review of Systems CONSTITUTION: Negative for: Weight loss or gain, Fever. Chills, Night sweats HEENT: Negative for: Nosebleeds, Mouth sores, Trouble swallowing, Dry mouth RESPIRATORY: Negative for: Cough, Shortness of breath, Pain with breathing, Coughing up blood GASTROINTESTINAL: Negative for: Melena, Diarrhea, Abdominal pain, Heartburn, MUSCULOSKELETAL: Negative for: Arthralgias, Myalgias, Muscle weakness, Joint swelling, Morning stiffness in joints NEUROLOGICAL: Negative for: Headaches, Numbness, Memory loss, SKIN: Negative for: Rashes, Sun sensitive rashes, Skin color changes, Hair loss, Nail changes EYES: Negative for: Eye pain, Eye redness, Visual disturbance, Eye dryness CARDIOVASCULAR: Negative for: Chest pain, Leg swelling, Arrhythmia, Presyncope GENITOURINARY: Negative for: Dysuria, Hematuria, Ulceration HEMATOLOGIC/LYMPHATIC: Negative for: Swollen glands All other reviewed and negative other than HPI. Problem List There is no problem list on file for this patient. Past Medical History PAST MEDICAL HISTORY Diagnosis Date Hypertension Past Surgical History PAST SURGICAL HISTORY Procedure Laterality Date COLONOSCOPY FLX DX W/COLLJ SPEC WHEN PFRMD 02/04/2015 Colonoscopy Family History FAMILY HISTORY Problem Relation Age of Onset Asthma Father Cancer Mother thyroid Social History Social History Tobacco Use Smoking status: Never Passive exposure: Never Smokeless tobacco: Never Substance Use Topics Alcohol use: Yes Comment: occasional use Drug use: No Medications Current Outpatient Medications Medication Sig ergocalciferol 50,000 unit capsule (VITAMIN D2, DRISDOL) Take 1 capsule by mouth two times a week. (FOR EXAMPLE ONE CAPSULE ON WEDNESDAY AND ONE ON WEDNESDAY) FOR A TOTAL OF 8 WEEKS, WITH A MEAL amLODIPine (NORVASC) 10 mg tablet Take one(1) tablet daily. dupilumab (DUPIXENT SYRINGE) 100 mg/0.67 mL injection Inject 100 mg subcutaneously every 2 weeks. lidocaine (LIDODERM) 5 % Apply 1 Patch as directed once daily. TO AFFECTED AREA. REMOVE AFTER 12 HOURS. diclofenac (VOLTAREN) 1 % topical gel Apply 2 g to affected area four times a day as needed. TO PAINFUL JOINTS , AVOID CONTACT WITH EYES, DO NOT EXCEED 32GM/DAY allopurinol (ZYLOPRIM) 200 mg tablet Take 1 tablet (200 mg) by mouth once daily. predniSONE (DELTASONE) 5 mg tablet Take 1 tablet by mouth once daily. Then stop. No other nsaids . With food. oxyCODONE-acetaminophen (PERCOCET) 5-325 mg tablet Take one(1) tablet every six(6) hours as needed. (Patient not taking: Reported on 02/02/2024) No current facility-administered medications for this visit. Physical Exam BP 146/89 Pulse 79 Temp 97.4 Wt 241 lb 8.2 oz (109.6kg) SpO2 100% Physical Exam Vitals reviewed. Constitutional: Appearance: Normal appearance. HENT: Head: Normocephalic. Nose: Nose normal. Mouth/Throat: Mouth: Mucous membranes are moist. Cardiovascular: Rate and Rhythm: Normal rate and regular rhythm. Pulmonary: Effort: Pulmonary effort is normal. Breath sounds: Normal breath sounds. Musculoskeletal: Comments: Enlarged pip right hand- improved No other swelling , redness or tenderness Nail dystrophy toe nails Skin: Capillary Refill: Capillary refill takes less than 2 seconds. Neurological: General: No focal deficit present. Mental Status: He is alert and oriented to person, place, and time. Mental status is at baseline. There is currently no information documented on the homunculus. Go to the Rheumatology activity and complete the homunculus joint exam. Joint Exam 02/02/2024 No joint exam has been documented for this visit Joint Exam Data (across time) documented in this encounter [facility] 02-02-2024 Instructions Rere Valentino APRN.CNP - 02/02/2024 11:11 AM EST Continue prednisone mg for 1 month then stop No other nsaids With food If labs are normal We will increase allopurinol 200mg daily Recheck labs today and in 1 month documented in this encounter [facility] 01-21-2024 Miscellaneous Notes Notified patient of below, verbal understanding. No may start prednisone now Labs in March CT as schedule d Pt identified by name and Pt notified of below message and verbalizes understanding. Patient recalls in OV Discussion that he was NOT supposed to take Prednisone until AFTER Labs/CT Labs 01/30 CT 02/08 Please advise I tried to call patient Phone would not accept my call Please try again Please verify no current infection Pred taper sent ---- I saw patient in office today confirmed swelling pip right hand Image will attached No redness tender documented in this encounter [facility] 01-19-2024 Miscellaneous Notes Called and spoke with patient; patient stated working out and will call back to schedule DUAL energy CT Pss - please schedule DUAL energy CT Nursing - patient will stop in office th 2:30pm to confirm joint swelling finger Does not have appointment We will take pictures of finger swelling Patient is unable to do this at home and send through [facility] [facility] Once swelling confirmed will start pred taper Sometimes significant swelling Swelling improving some since yesterday Cut down red meat Drinking regina teas Has not drank 2 weeks Couple beers twice week Discussed gout diet Uric acid not at goal Patient will stop in office to verify swelling finger No fever, no redness Swelling finger Discussed dual energy CT to confirm In past 2017 rheum visit Record review shows knee arthrocentesis inflammatory fluid and rare monosodium urate crystals. XR showing soft tissue swelling. Consistent with gout. Rheum workup Patient returned call, reviewed below message. Please advise any further recommendations after review of triage questions/answers Tried to call patient on cell phone To get more information We were trying to avoid steroids if possible prior to the US as this can alter results Please triage joint symptoms Any redness , tenderness , swelling which joints ,onset symptoms - no discoloration of skin - swelling of the middle finger on right hand for approx 3 days - twice the size of other finger - joint is painful, but has been using a Lidocaine 5 % patch which is helping. - no other symptoms to report He does have history gout and last uric acid is above the goal He states his symptoms do feel like when he had gout flare in the past So far negative for rheumatoid arthritis on labs and neg VIRY The US will be a good indicator for disease activity. When was his last prednisone use ? Last Prednisone use was about 3 weeks ago after last OV. -Pt calling in to see if there has been any input regarding below. Pt identified by name and date. - is using a lidocaine patch on his finger which is helping relieve pain (up to 5/10 now), but states his finger is swollen almost double in size. - [facility] about this before and discussed how steroids typically help decrease his joint swelling quickly. Would like a prescription sent if at all possible. -States in the past when he had this he ended up going to the ER and sitting for hours before being prescribed a steroid. Would like to avoid this if he can. -Please call Pt to advise. Pablo is calling Rere Valentino APRN.ANTHONY today saying he is having joint pain and swelling in his middle right finger for the past 3 days. He has used a lidocaine patch which has helped a little, but is still sore and swollen. Please advise patient after 10:00 an today. Patient has been identified by name and birthdate. Duration of symptoms: 3 days Person calling: self Call patient at: on cell [phone] (home) [phone] (cell) Was an appointment scheduled: No Closing statement: Symptom Call: Thank you for calling [facility], your call is very important. A nurse will call in approximately 2-4 hours during business hours. If this is an emergency, please contact 911. Miriam Carrion documented in this encounter [facility] 01-10-2024 Miscellaneous Notes Patient has been scheduled for their MSK US exam on 01/31/24 : 12:45 PM at [facility]. Called patient on January 07, 2024 at 2:17 PM to schedule their MSK US exam. No answer, left VM, 1st attempt. Visit Type: MSK SYNx2 Visit Length: 90, 100 OR 120 MINUTES Order Name/Protocol:US HAND/WRIST SYNOVIAL SCREEN RT+LT AND US FOOT/ANKLE SYNOVIAL SCREEN RT+LT Preferred Provider: N/A Comment: N/A Location: ANY FACILITY Slot held: N/A documented in this encounter [facility] 01-07-2024 Miscellaneous Notes Encounter sent to schedule the Synovial US of the hands and feet. Lena Garza January 07, 2024 1:40 PM Please call to scheduled us hands/ feet Taking allopurinol 100mg daily Started few months ago Discussed gout diet Started having some knee pain and resolved quickly with patch Answered all below questions. Pt would like med to be sent to correct pharmacy attached. Thanks. Patient calling. Vitamin D Rx was sent to the wrong pharmacy. Please re-send to [facility] pharmacy, order pended. Thank you. Patient has been identified by name and date of : Yes Requested Prescriptions Pending Prescriptions Disp Refills ergocalciferol 50,000 unit capsule (VITAMIN D2, DRISDOL) 8 capsule 1 Sig: Take 1 capsule by mouth two times a week. (FOR EXAMPLE ONE CAPSULE ON WEDNESDAY AND ONE ON WEDNESDAY) FOR A TOTAL OF 8 WEEKS, WITH A MEAL RX INSTRUCTIONS: Patient aware RX will be sent to pharmacy. No need to notify patient. Karina Ramires [facility] POST (Patient Operations Support Team) Please note: Please do not re-route phone encounters back to this agent, please send to appropriate office pool. Agent works in operations center and cannot complete patient specific tasks. -Pt verified by Name and . -Pt Called back and message given as stated below. -pt states may have been told had gout before - pt recalls having sore great toes, knees. -Pt asking for explanation of below results: Xr ankles Bilateral talocalcaneal tarsal coalition Vascular calcification seen on the xrays Please send xrays to pcp for follow up Left message for patient to call office regarding below. Please call patient Low vitamin D maybe associated with fatigue/joint/muscle pain. Start vitamin D script with food, then take over the counter vitamin D 4000 International Units daily with food after script completed. New script sent to pharmacy. Notify office if medication change is not tolerated. Recheck nonfasting labs in 3months, orders have been placed. High pth may correct with correction vit d High crp and sed rate Negative hep and tb High creatinine Please hydrate well and please avoid nsaids High uric acid Have you ever had a gout attack? Xr knee Mild bilateral knee osteoarthritis May see ortho for persistent/ worsening pains Xr ankles Bilateral talocalcaneal tarsal coalition. May see podiatry for persistent/ worsening pains Xr hands Mild osteoarthritis May see hand ortho for persistent/ worsening pains Vascular calcification seen on the xrays Please send xrays to pcp for follow up We will discuss all results further at upcoming visit Component Latest Ref Rng & Units 12/27/2023 WBC 3.70 - 11.00 k/uL 10.95 RBC 4.20 - 6.00 m/uL 4.97 Hemoglobin 13.0 - 17.0 g/dL 14.9 Hematocrit 39.0 - 51.0 % 45.7 MCV 80.0 - 100.0 fL 92.0 MCH 26.0 - 34.0 pg 30.0 MCHC 30.5 - 36.0 g/dL 32.6 RDW-CV 11.5 - 15.0 % 13.2 Platelet Count 150 - 400 k/uL 262 MPV 9.0 - 12.7 fL 10.0 NRBC /100 WBC 0.0 Absolute nRBC <0.01 k/uL <0.01 Neut% % 57.0 Abs Neut (ANC) 1.45 - 7.50 k/uL 6.24 Lymph% % 35.1 Abs Lymph 1.00 - 4.00 k/uL 3.84 [place]% % 7.0 Abs [place] <0.87 k/uL 0.77 Eosin% % 0.0 Abs Eosin <0.46 k/uL 0.00 Baso% % 0.0 Abs Baso <0.11 k/uL 0.00 Myelo% % 0.9 Left Shift Present Platelet Estimate Adequate Red Cell Morph Reviewed: see results of individual morphologies Polychromasia Slight Ovalocytes Few DTYPE Manual Color Yellow Yellow Clarity Clear Clear Glucose, Urine Negative Negative Bilirubin, Urine Negative Negative Ketones, Urine Negative Trace (A) Specific [place], Ur 1.005 - 1.030 1.025 Hemoglobin/Blood,Ur Negative Negative pH, Urine <8.5 5.0 Protein, Urine Negative Negative Urobilinogen 0.2-1.0 EU/dL 0.2 EU/dL Nitrites Negative Negative Leukest Negative Negative WBC, Urine 0-5 /HPF 0-5 /HPF RBC, Urine 0-2 /HPF 0-2 /HPF Bacteria Negative /HPF Negative Epithelial Cells /HPF None Seen Hyaline Cast 0 /LPF 0 /LPF Protein, Total 6.3 - 8.0 g/dL 6.8 Albumin 3.9 - 4.9 g/dL 4.2 Calcium 8.5 - 10.2 mg/dL 8.9 Bilirubin, Total 0.2 - 1.3 mg/dL 0.2 Alkaline Phosphatase 38 - 113 U/L 99 AST 14 - 40 U/L 15 ALT 10 - 54 U/L 17 Glucose 74 - 99 mg/dL 91 BUN 9 - 24 mg/dL 15 Creatinine 0.73 - 1.22 mg/dL 1.32 (H) Sodium 136 - 144 mmol/L 140 Potassium 3.7 - 5.1 mmol/L 4.3 Chloride 97 - 105 mmol/L 101 CO2 22 - 30 mmol/L 27 Anion Gap 9 - 18 mmol/L 12 eGFR >=60 mL/min/1.73m 62 TB Nil <=8.00 IU/mL 0.03 TB1 Ag minus Nil <0.35 IU/mL 0.00 TB2 Ag minus Nil <0.35 IU/mL 0.00 TB Result Negative Mitogen minus Nil >=0.50 IU/mL >9.97 TB Interpretation Infection with M. tuberculosis complex is unlikely. If latent tuberculosis infection is highly suspected, a negative result does not rule out the infection. Specimens from immunocompromised patients and those <5 years of age may show false negative results. In case of a contact investigation, please repeat 8-12 weeks after a known exposure. CCP Antibody IgG Qualitative Negative Negative CCP Antibody, IgG <20 Units <15 Hep B Surface Ab, Qual Negative Hep B Surf Ab Quant mIU/mL <8.00 Rheumatoid Factor <16 IU/mL 10 VIRY Negative Negative C3 86 - 166 mg/dL 145 C4 13 - 46 mg/dL 42 Vitamin D 25 Hydroxy 31.0 - 80.0 ng/mL 7.1 (L) Uric Acid 4.0 - 8.1 mg/dL 8.3 (H) CRP <0.9 mg/dL 1.5 (H) WSR 0 - 15 mm/hr 34 (H) G-6-PD Quantitative 9.8 - 15.5 U/g Hb 11.9 PTH, Intact 15 - 65 pg/mL 81 (H) Hep C Antibody IA Negative Negative Hep B Surface Ag Negative Negative Hep B Core Ab, Total Negative Negative documented in this encounter [facility] 12-27-2023 Note HNO ID: [id number] Author: PINEDA COATS RT(R) Service: ? Author Type: Technologist Type: Progress Notes Filed: 12/27/2023 13:31 Note Text: Radiology Service Progress Note PATIENT NAME: Xiang West DATE OF SERVICE: December 27, 2023 TIME: 1:30 PM PATIENT IDENTITY VERIFICATION COMPLETED USING TWO (2) IDENTIFIERS: Name and Date of confirmed by patient verbally. FALL SCREENING: Has the patient had 2 falls in the last year or 1 fall with injury or currently using an Ambulatory Assistive Device (Walker, Cane, Wheelchair, Crutches, etc.)? 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 Bearing and Ankle, Bilateral and Wt. Bearing Upper Extremity X-Ray(s): Hand, bilateral PERIPHERAL IV DATA: Not applicable SIGNED BY: RT Heather(R) December 27, 2023 1:30 PM [facility] 12-27-2023 Note HNO ID: [id number] Author: RERE VALENTINO APRN.CNP Service: ? Author Type: Nurse Practitioner Type: Progress Notes Filed: 12/27/2023 12:50 Note Text: Rheumatology CONSULTATION Date of Service: 12/27/2023 Patient: Xiang West Medical Record: [id number] Primary Care Physician: Rere Aguiar MD Last Rheumatology visit: None at [facility] Referring Provider: No referring provider defined for this encounter. Xiang West is here today at request of Dr. Aguiar specifically for consultation of my opinion in regards to the chief complaint listed below. Correspondence will be shared today via the [facility] electronic health record or through regular mail, where applicable. History of Present Illness Xiang West is a 58 year old Black male who presents on 12/27/2023 for an in-person visit for evaluation of New Patient Evaluation (alicia knee pain -- c/o Rt knee pain -- finished course of steroid for last flare 2 wks ago -- > 5 days since last dose of Prednisone . can feel the pain coming back in Rt knee - - seen in hospital -- ? gout vs arthritis ). Xiang reports a current pain level of 7 (Knee-Right). He describes the pain as Aching. The pain is Continuous, and has lasted for 2 Days. He is currently taking diclofenac sodium. Onset of symptoms began at age 48. Xiang is both RF and CCP negative. There are no rheumatoid nodules present. Xiang has joint swelling (Kees, ankles, hands - pips). Xiang reports he does not have any morning stiffness. HISTORY OF PRESENT ILLNESS Only see rheumatology 1 visit in the past Multiple ER visits for joint pain History gout? Allopurinol 100mg daily Went to ER twice in last few weeks Several years joint Intermittent can go months without anything or multiple times month Pains - Knees, ankles, pips, mcps, toes Swelling - ankles , toes, knees, pips, mcps Am stiffness - no If joints stiff and swollen only gets worse not better Feels locked in position Unless having flare no am stiffness Last time could not get out of bed for 4 days Could not bend either knees Painful stiff swelling Used to be able to work it out but not does not stop pain gets worse Pain stiffness swelling relieved with prednisone No redness Does have tenderness when happens No known history RA or lupus Family history gout Not increased stress No infection proceeding INTERVAL HISTORY Right knee pain Worse with weather changes Not drinking much water Was dehydrated when went to er in dec Eating better Cutting back on red med meats Eating more veggies Rarely 3 alcohol drinks week Musculoskeletal History Age at start of MSK symptoms: 48 years Joint pain: right knee, left knee, right ankle, left ankle, right MCP, right PIP, left MCP, left PIP, right toes, left toes, right MTP, left MTP No gelling Joint swelling (Comment: Kees, ankles, hands - pips) Anything make it better?: Yes (Comment: prednisone, pains meds,) Knee popping, locking, or clicking?: Yes (Comment: feels straight locked because swelling) Knee gives way or falls?: No No joint replacements Other Arthritis-related Surgery Location Date Comment right elbow sx Rheumatoid Arthritis History Age at start of arthritis symptoms: 48 years Rheumatoid Factor negative Anti CCP negative No rheumatoid nodules No morning stiffness Joint Swelling Joint Swelling: Kees, ankles, hands - pips No joint replacement Other RA-related surgery Location Date Comment right elbow sx Extra-Articular Features / Comorbidities No Sjogren's No history of malignancy No vasculitis No episcleritis No scleritis No dry eyes No dry mouth No pleural effusions No lung nodules No congestive heart failure No pericarditis No myocardial infarction No peripheral neuropathy No anemia No neutropenia No thrombocytopenia Systemic Lupus Erythematosus (SLE) History Relevant to SLICC Classification Criteria - no thrombocytopenia (<100,000/mm3) Relevant to New ACR and EULAR Classification Criteria - no thrombocytopenia Autoimmune Disease History No dry eyes no dry mouth Gout History Frequency of attacks at initial presentation: patient is unsure sometimes called gout attacks and other times not . he is not sure. more frequently RISK FACTORS No diuretic use No use of low dose aspirin No use of cyclosporine Family history: uncle Diet: cutting back recently on red meat, trying to increase water intake No chronic kidney disease Hypertension No congestive heart failure No coronary artery disease No obstructive sleep apnea No history of kidney stones No metabolic disease No solid organ transplant Pain Evaluation Pain Evaluation 02/04/2015 09/03/2017 04/20/2023 04/28/2023 12/27/2023 Pain Score 0 9 8 - 7 Location - Hand-Right Hand-Left Hand-Left Knee-Right Location Comment - Right middle finger - - - Description - Pressure;Tingling Aching;Thr (more content not included)... [facility] 11-29-2023 Discharge summary Note Date/Time November 29, 2023 1:00pm [facility] Medical Records Department [address] [place] [id number] Discharge Summary 11/29/23 1237 MR#: [id number] Acct: [id number] Name: XIANG WEST Rep #:[id number] : 1965 58 From: Wayne serrano MD PCP: Dr. Rere Aguiar MD Status:ADM ANITA Location: [place] [address] Providers Date of Admission: 11/26/23 Primary Care Physician: Dr. Rere Aguiar MD Reason For Visit: WEAKNESS AND DEBILITY Diagnosis Discharge Diagnosis (1) Weakness: Status: Acute Code(s): R53.1 - Weakness (2) Debility: Status: Acute Code(s): R53.81 - Other malaise Medications at Discharge Home Medications allopurinol 100 mg tablet 100 mg PO DAILY gout 30 days #30 tabs 11/29/23 amlodipine 10 mg tablet 10 mg PO DAILY 30 days #30 tabs 11/29/23 prednisone 10 mg tablet 40 mg (4 x 10 mg) PO BREAKFAST #53 tabs 11/29/23 Hospital Course Operations None Procedures None Summary of Care Provided Minutes Spent on Discharge: 42 Hospital Course: Per HPI:XIANG WEST, is a 58 M with a past medical history as outlined who presents via the ED on 11/26/2023 with a complaint of weakness and debility as well as bilateral knee pain. Patient said he had been having pain in his knees for about 4 days now and could not ambulate. He had pretty much been lying in bed all 4 days. He said he thought it would get better but his symptoms did notimprove so he called the EMS today. He denied any trauma to his knees, any frequent falls, any dizziness or lightheadedness, any fever or chills or any other symptoms. He does admit to a history of gout as far as he knows he does not have arthritis. Review of systems otherwise negative. At time of review, vitals were blood pressure 159/96, respiratory rate of 16 andpulse rate of 74. Temperature was initially 99.7 when he came into the ED but went down to 98.3 Fahrenheit. He was saturating at 99% on room air. CBC was unremarkable. BMP shows sodium of 136 with creatinine of 2. Urinalysis showed no evidence of UTI. X-ray of the left knee showed a small joint effusion but noevidence of acute osseous changes and x-ray of the right knee showed no acute pathology. He is evaluated to evaluate for debility due to bilateral knee pain. 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 He states that he saw a lubricating specialist 1 time in the past with no significant diagnosis. He did have an elevated uric acid in April so it is possible that this is just a gout flare, his inflammatory markers were elevated so an rheumatological panel was obtained but these take about a week to come back. Today he says that he feels much better and so I discussed with him the plan for discharge on a steroid taper. We did discuss at length the diet for gout which is essentially everything that he eats, today for breakfast he had Filipino toast as well as an Egg McMuffin sandwich scrambled eggs, ward, and hashbrowns. So encouraged him to have significant dietary modifications and to continue his home allopurinol and see if this made any changes in his symptoms. In the meantime I recommend that he follow-up with his PCP in 3 to 5 days to obtain outpatient rheumatology referral. 2. Hypertension?it does not appear that he has a history of this however in thehospital his systolics were in the 150 to 170s with a diastolic in the 90s to 100s, he was started on Norvasc and I recommended he follow-up with his PCP for outpatient monitoring, and treatment adjustment. Physical Exam Narrative General: Alert, Oriented x3, Cooperative, No apparent distress HEENT: Atraumatic, PERRLA, EOMI, Normocephalic Oral: Moist Mucosa Neck: Supple, No JVD Lungs: Clear to auscultation, Normal air movement, No rhonchi, No wheeze, No rales Cardiovascular: Regular rate, Regular Rhythm, Normal S1, Normal S2, No murmurs Abdomen: Soft, Non Tender, Non-Distended, No Hepato-splenomegaly Extremities: No edema, Capillary Refill Less than 3 Seconds Skin: No rashes, No breakdown Musculoskeletal: No Tenderness to Palpation of Joints or Extremities Neurological: Cranial nerves II-XII grossly intact, Motor Exam 5/5 strength throughout, Sensory exam intact to light touch and pain Psych/Mental Status: Normal Affect, Appropriate Medical Records Data Medical Nutrition Assessment Dietitian: Malnutrition Criteria Met Start: 11/26/23 15:18 Freq: Status: Active Protocol: Document 11/26/23 15:18 ESTUARDO (Rec: 11/26/23 15:18 ESTUARDO Desktop) Nutrition Malnutrition Evidence of Malnutrition Exists Yes Malnutrition (severe): Acute Illness/Injury Evidenced By Suboptimal Energy Intake ( Severe),Weight Loss (Severe) Clinical Problem Acute Disease or Injury Related Malnutrition Etiology related to inability to access food/water d/t unable to get out of bed x 4 days d/t alicia knee pain Signs/Symptoms as evidenced by 11% unintended wt loss and <75% of est nutritional needs x 4 days 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 Status Active Problem Recommendation Dietitian Recommendations/Changes Continue Regular diet Allow snacks tid between meals as desired by pt Weight / BMI Weight Weight: 241 lb Body Mass Index (BMI) 30.1 ABG / Lab / Microbiology Data 11/29/23 06:09 11/29/23 06:09 Laboratory: Laboratory Results - last 24 hr 11/29/23 06:09: WBC 14.4 H, RBC 4.18 L, Hgb 12.9 L, Hct 38.5 L, MCV 92.1, MCH 30.9, MCHC 33.5, RDW Std Deviation 43.6, RDW Coeff of May 12.8, Plt Count 428, MPV 9.3, Immature Gran % (Auto) 0.600, Neut % (Auto) 78.4 H, Lymph % (Auto) 12.7L, [place] % (Auto) 7.7, Eos % (Auto) 0.3, Baso % (Auto) 0.3, Absolute Neuts (auto)11.3 H, Absolute Lymphs (auto) 1.83, Nucleated RBC % 0, Sodium 137, Potassium 4.3, Chloride 110 H, Carbon Dioxide 24.0, Anion Gap 3 L, BUN 23 H, Creatinine 0.97, Estim Creat Clear Calc 96.79, Est GFR (MDRD) Af Amer 102, Est GFR (MDRD) Non-Af 84, BUN/Creatinine Ratio 23.8 H, Glucose 98, Calcium 9.1 D/C Instructions Discharge Diet: Low fat / Low cholesterol Call your doctor if you observe: Fever of 101 or Higher, Shortness of breath, Dizziness, Fainting spells, Swelling in the ankles, Chest pain and Increased palpitations (irregular heartbeat) Meaningful Use Info Meaningful Use Diagnoses (Choose all that apply): None applicable Discharge Plan Admission Admit Date/Time: 11/26/23 11:31 Attending Provider: Wayne Friend Primary Care Provider: Rere Aguiar Consulting Providers: Christiane Martin Instructions Additional Instructions / Restrictions: Follow-up with your primary care doctor as an outpatient to obtain a referral torheumatology on the off chance that this is not gout. In the meantime try to stick with the diet we talked about at length today for gout, your uric acid which can be elevated in gout was elevated back in April when you presented to the ER and you are on allopurinol which should help treat the gout if that is what the joint pain is. You also have high blood pressure so you were started on a medication called [facility] the main side effect of this can be lower extremity swelling but you do need to follow-up with your primary care doctor asyou may need further blood pressure medication adjustments. This can resolve with exercise like we talked about this morning. Discharge Orders/Prescriptions Prescriptions: New amlodipine 10 mg Tablet 10 mg PO DAILY 30 Days Qty: 30 0RF prednisone 10 mg tablet 40 mg PO BREAKFAST Qty: 53 0RF Rx Instructions: Take 4 tablets daily for 5 days then 3 tablets daily for 5 days then 2 tablets daily for 5 days then 1 tablet daily for 5 days then half tablet daily for 6 days Continued allopurinol 100 mg tablet 100 mg PO DAILY 30 Days Qty: 30 2RF Discontinued prednisone 20 mg tablet 40 mg PO DAILY 10 Days Qty: 20 0RF meloxicam 7.5 mg tablet 7.5 mg PO DAILY Qty: 20 0RF hydrocodone-acetaminophen [hydrocodone-acetaminophen] 5-325 mg tablet 1 tab PO Q4H PRN PRN (Reason: Pain) 2 Days Qty: 4 0RF prednisone 20 mg tablet 40 mg PO DAILY 7 Days Qty: 14 0RF prednisone 20 mg tablet 40 mg PO DAILY Qty: 10 0RF prednisone 20 mg tablet 60 mg PO DAILY Qty: 18 0RF prednisone 20 mg tablet 60 mg PO DAILY Qty: 18 0RF prednisone 50 mg tablet 50 mg PO DAILY Qty: 5 0RF Referrals / Follow Up: Rere Aguiar MD [Primary Care Provider] - Within 1 Week Disposition Disposition (needs filled in before D/C Order can be placed): Home, Self Care Charges/Coding Visit Charges Inpatient E&M: 69164 Disch Hosp >30min 11/29/23 1300 <Electronically signed by Wayne Friend MD> Cosigner Signature (if applicable): CC: Dr. Rere Aguiar MD; Dr. Wayne Friend MD~ Signed [facility] Work Phone: 1(139) 439-498801-01-2024 [facility] Medical Records Department [address] [place] [address] Discharge Summary 11/29/23 1237 MR#: [id number] Acct: [id number] Name: XIANG WEST Rep #: [id number] : 1965 58 From: Wayne Friend MD PCP: Dr. Rere Aguiar MD Status:ADM ANITA Location: [place] [id number] Providers Date of Admission: 11/26/23 Primary Care Physician: Dr. Rere Aguiar MD Reason For Visit: WEAKNESS AND DEBILITY Diagnosis Discharge Diagnosis (1) Weakness: Status: Acute Code(s): R53.1 - Weakness (2) Debility: Status: Acute Code(s): R53.81 - Other malaise Medications at Discharge Home Medications allopurinol 100 mg tablet 100 mg PO DAILY gout 30 days #30 tabs 11/29/23 amlodipine 10 mg tablet 10 mg PO DAILY 30 days #30 tabs 11/29/23 prednisone 10 mg tablet 40 mg (4 x 10 mg) PO BREAKFAST #53 tabs 11/29/23 Hospital Course Operations None Procedures None Summary of Care Provided Minutes Spent on Discharge: 42 Hospital Course: Per HPI:XIANG WEST, is a 58 M with a past medical history as outlined who presents via the ED on 11/26/2023 with a complaint of weakness and debility as well as bilateral knee pain. Patient said he had been having pain in his knees for about 4 days now and could not ambulate. He had pr ana much been lying in bed all 4 days. He said he thought it would get better but his symptoms did not improve so he called the EMS today. He denied any trauma to his knees, any frequent falls, any dizziness or lightheadedness, any fever or chills or any other symptoms. He does admit to a history of gout as far as he knows he does not have arthritis. Review of systems otherwise negative. At time of review, vitals were blood pressure 159/96, respiratory rate of 16 and pulse rate of 74. Temperature was initially 99.7 when he came into the ED but went down to 98.3 Fahrenheit. He was saturating at 99% on room air. CBC was unremarkable. BMP shows sodium of 136 with creatinine of 2. Urinalysis showed no evidence of UTI. X-ray of the left knee showed a small joint effusion but no evidence of acute osseous changes and x-ray of the right knee showed no acute pathology. He is evaluated to evaluate for debility due to bilateral knee pain. 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 He states that he saw a lubricating specialist 1 time in the past with no significant diagnosis. He did have an elevated uric acid in April so it is possible that this is just a gout flare, his inflammatory markers were elevated so an rheumatological panel was obtained but these take about a week to come back. Today he says that he feels much better and so I discussed with him the plan for discharge on a steroid taper. We did discuss at length the diet for gout which is essentially everything that he eats, today for breakfast he had Filipino toast as well as an Egg McMuffin sandwich scrambled eggs, ward, and hashbrowns. So encouraged him to have significant dietary modifications and to continue his home allopurinol and see if this made any changes in his symptoms. In the meantime I recommend that he follow-up with his PCP in 3 to 5 days to obtain outpatient rheumatology referral. 2. Hypertension???it does not appear that he has a history of this however in the hospital his systolics were in the 150 to 170s with a diastolic in the 90s to 100s, he was started on Norvasc and I recommended he follow-up with his PCP for outpatient monitoring, and treatment adjustment. Physical Exam Narrative General: Alert, Oriented x3, Cooperative, No apparent distress HEENT: Atraumatic, PERRLA, EOMI, Normocephalic Oral: Moist Mucosa Neck: Supple, No JVD Lungs: Clear to auscultation, Normal air movement, No rhonchi, No wheeze, No rales Cardiovascular: Regular rate, Regular Rhythm, Normal S1, Normal S2, No murmurs Abdomen: Soft, Non Tender, Non-Distended, No Hepato-splenomegaly Extremities: No edema, Capillary Refill Less than 3 Seconds Skin: No rashes, No breakdown Musculoskeletal: No Tenderness to Palpation of Joints or Extremities Neurological: Cranial nerves II-XII grossly intact, Motor Exam 5/5 strength throughout, Sensory exam intact to light touch and pain Psych/Mental Status: Normal Affect, Appropriate Medical Records Data Medical Nutrition Assessment Dietitian: Malnutrition Criteria Met Start: 11/26/23 15:18 Freq: Status: Active Protocol: Document 11/26/23 15:18 SLA (Rec: 11/26/23 15:18 SLA Desktop) Nutrition Malnutrition Evidence of Malnutrition Exists Yes Malnutrition (severe): Acute Illness/Injury Evidenced By Suboptimal Energy Intake ( Severe),Weight Loss (Severe) Clinical Problem Acute Disease or Injury Relate (more content not included)...[facility]01-01-2024 Discharge summary Author Wayne Friend [facility] November 29, 2023 10:14am Note Date/Time November 29, 2023 10 :06am [facility] Medical Records Department [address] [place] [address] Instructions for Home/Discharge Instructions 11/29/23 1005 MR#: [id number] Acct: [id number] Name: XIANG WEST Rep #:[id number] : 1965 58 From: Wayne serrano MD PCP: Dr. Rere Aguiar MD Status:ADM ANITA Discharge Instructions Diet Discharge Diet: Low fat / Low cholesterol Activity Discharge Activity: Return to Normal Activity Dressing / Incision Call your doctor if you observe: Fever of 101 or Higher, Shortness of breath, Dizziness, Fainting spells, Swelling in the ankles, Chest pain and Increased palpitations (irregular heartbeat) Follow Up Care Test Results: Test results from this visit will be discussed in further detail at your follow- up appointment, if applicable. Discharge Plan Admission Admit Date/Time: 11/26/23 11:31 Attending Provider: Wayne Friend Primary Care Provider: Rere Aguiar Consulting Providers: Christiane Martin Instructions Additional Instructions / Restrictions: Follow-up with your primary care doctor as an outpatient to obtain a referral torheumatology on the off chance that this is not gout. In the meantime try to stick with the diet we talked about at length today for gout, your uric acid which can be elevated in gout was elevated back in April when you presented to the ER and you are on allopurinol which should help treat the gout if that is what the joint pain is. You also have high blood pressure so you were started on a medication called Norvasc the main side effect of this can be lower extremity swelling but you do need to follow-up with your primary care doctor asyou may need further blood pressure medication adjustments. This can resolve with exercise like we talked about this morning. Discharge Orders/Prescriptions Prescriptions: New amlodipine 10 mg Tablet 10 mg PO DAILY 30 Days Qty: 30 0RF prednisone 10 mg tablet 40 mg PO BREAKFAST Qty: 53 0RF Rx Instructions: Take 4 tablets daily for 5 days then 3 tablets daily for 5 days then 2 tablets daily for 5 days then 1 tablet daily for 5 days then half tablet daily for 6days Continued allopurinol 100 mg tablet 100 mg PO DAILY 30 Days Qty: 30 2RF Discontinued prednisone 20 mg tablet 40 mg PO DAILY 10 Days Qty: 20 0RF meloxicam 7.5 mg tablet 7.5 mg PO DAILY Qty: 20 0RF hydrocodone-acetaminophen [hydrocodone-acetaminophen] 5-325 mg tablet 1 tab PO Q4H PRN PRN (Reason: Pain) 2 Days Qty: 4 0RF prednisone 20 mg tablet 40 mg PO DAILY 7 Days Qty: 14 0RF prednisone 20 mg tablet 40 mg PO DAILY Qty: 10 0RF prednisone 20 mg tablet 60 mg PO DAILY Qty: 18 0RF prednisone 20 mg tablet 60 mg PO DAILY Qty: 18 0RF prednisone 50 mg tablet 50 mg PO DAILY Qty: 5 0RF Referrals / Follow Up: Rere Aguiar MD [Primary Care Provider] - Within 1 Week Disposition Disposition (needs filled in before D/C Order can be placed): Home, Self Care 11/29/23 1014<Electronically signed by Wayne Friend MD>Wayne Friend MD CC: Dr. Rere Aguiar MD; Dr. Christiane Martin MD ~ Signed [facility] Work Phone: 1(488) 541-706912-31-2023 Progress note Author Christiane Martin [facility] November 28, 2023 1:12pm Note Date/Time November 28, 2023 10:11am [facility] Medical Records Department [address] [place] [address] Progress Note 11/28/23 1007 MR#: [id number] Acct: [id number] Name: XIANG WEST Rep #:[id number] : 1965 58 From: Christiane Martin MD PCP: Dr. Rere Aguiar MD Status:ADM ANITA Location: [place] [id number] Subjective Subjective Patient seen and examined. He tells me today he does not feel well enough to gohome because the pain is now migrated to his ankles. It was initially in his right ankle and now on his left ankle after initially being in his knees. He denies any rash and he states he is unable to fully weight-bear. Review of systems otherwise negative. Objective Data Objective Data Vital Signs: Vital Signs Temp Pulse Resp BP Pulse Ox O2 Del Method 97.9 F 89 16 155/98 H 100 Room Air 11/28/23 08:35 11/28/23 08:35 11/28/23 08:35 11/28/23 08:35 11/28/23 08:35 11/28/23 08:35 Oxygen Delivery Method Room Air Weight: 241 lb Body Mass Index (BMI) 30.1 Intake & Output: Intake and Output for Last 24 Hours 11/26/23 11/27/23 11/28/23 23:59 23:59 23:59 Intake Total 3870.83 / 3870.83 2635.42 / 2635.42 Output Total 500 / 500 Balance 3870.83 / 3870.83 2135.42 / 2135.42 Medical Nutrition Assessment Dietitian: Malnutrition Criteria Met Start: 11/26/23 15:18 Freq: Status: Active Protocol: Document 11/26/23 15:18 SLA (Rec: 11/26/23 15:18 ESTUARDO Desktop) Nutrition Malnutrition Evidence of Malnutrition Exists Yes Malnutrition (severe): Acute Illness/Injury Evidenced By Suboptimal Energy Intake ( Severe),Weight Loss (Severe) Clinical Problem Acute Disease or Injury Related Malnutrition Etiology related to inability to access food/water d/t unable to get out of bed x 4 days d/t alicia knee pain Signs/Symptoms as evidenced by 11% unintended wt loss and <75% of est nutritional needs x 4 days 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 Status Active Problem Recommendation Dietitian Recommendations/Changes Continue Regular diet Allow snacks tid between meals as desired by pt Lab / Micro Data 11/28/23 06:04 11/28/23 06:04 Labs: Laboratory Results - last 24 hr 11/28/23 06:04: WBC 9.3, RBC 4.19 L, Hgb 12.7 L, Hct 39.7 L, MCV 94.7 H, MCH 30.3, MCHC 32.0, RDW Std Deviation 44.1 H, RDW Coeff of May 12.7, Plt Count 382,MPV 9.4, Immature Gran % (Auto) 0.500, Neut % (Auto) 66.5, Lymph % (Auto) 21.3, [place] % (Auto) 9.4, Eos % (Auto) 1.7, Baso % (Auto) 0.6, Absolute Neuts (auto) 6.2, Absolute Lymphs (auto) 1.98, Nucleated RBC % 0, Sodium 137, Potassium 4.2, Chloride 109 H, Carbon Dioxide 24.0, Anion Gap 4 L, BUN 20 H, Creatinine 1.03, Estim Creat Clear Calc 91.15, Est GFR (MDRD) Af Amer 95, Est GFR (MDRD) Non-Af 78, BUN/Creatinine Ratio 19.4, Glucose 83, Calcium 8.8 Physical Exam Const alert, oriented x3 and no apparent distress General Appearance: cooperative and well developed HEENT normocephalic, head/scalp atraumatic and oropharynx normal Eyes PERRL and EOMs intact bilaterally Neck no lymphadenopathy and supple Lymph Lymphatic: no lymphadenopathy noted Resp normal respiratory effort, normal air movement and clear to auscultation bilaterally Cardio regular rate, regular rhythm, S1 normal heart sound, S2 normal heart sound, no murmurs, no rub and peripheral pulses 2+ throughout GI normal to inspection, nondistended, normoactive bowel sounds, soft to palpation,non-tender and non-distended Extremity normal capillary refill and no clubbing, cyanosis or edema Extremity Narrative: Has mild tenderness with palpation of the left ankle. Mild differential warmth of both knees. 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 * He denies any rash and has no obvious evidence of a rash. * Concerned that he may have an underlying rheumatologic condition. * Will do ESR and CRP. Ordered VIRY with rheumatology reflexive is positive. * Started on p.o. prednisone and continue p.o. oxycodone negative Tylenol * PT OT on board. For precautions. * * #MARLEY:resolved #History of gout: was on prednisone. I am not convinced that gout. Because of his migratory polyarthritis. Will however resume prednisone in light of the migratory joint pain DVT prophylaxis: SCDs COde status: full code * * Total time spent on evaluation and management of patient, reviewing chart, discussing plan with patient, discussion with nursing and ancillary staff as well as documentation:30 mins Charges/Coding Visit Charges Inpatient E&M: 95292 Subs Hosp L2 11/28/23 1312 <Electronically signed by Christiane Martin MD> Christiane Martin MD Cosigner Signature (if applicable): CC: ~ Signed [facility] Work Phone: 1(113) 110-367012-30-2023 History and physical note Author [facility] November 27, 2023 3:01pm Note Date/Time November 26, 2023 11:[address] [place] [address] Health System Medical Records Department [address] [place] [address] History & Physical Exam 11/26/23 1126 MR#: [id number] Acct: [id number] Name: XIANG WEST Rep #:[id number] : 1965 58 From: Christiane Martin MD PCP: Dr. Rere Aguiar MD Status:ADM ANITA Location: [place] [address] HPI - General General Date of Admission: 11/26/23 Date of Service: 11/26/23 Chief Complaint: weakness and debility HPI Narrative XIANG WEST, is a 58 M with a past medical history as outlined who presentsvia the ED on 11/26/2023 with a complaint of weakness and debility as well as bilateral knee pain. Patient said he had been having pain in his knees for about 4 days now and could not ambulate. He had pretty much been lying in bed all 4 days. He said he thought it would get better but his symptoms did not improve so he called the EMS today. He denied any trauma to his knees, any frequent falls, any dizziness or lightheadedness, any fever or chills or any other symptoms. He does admit to a history of gout as far as he knows he does not have arthritis. Review of systems otherwise negative. At time of review, vitals were blood pressure 159/96, respiratory rate of 16 andpulse rate of 74. Temperature was initially 99.7 when he came into the ED but went down to 98.3 Fahrenheit. He was saturating at 99% on room air. CBC was unremarkable. BMP shows sodium of 136 with creatinine of 2. Urinalysis showed no evidence of UTI. X-ray of the left knee showed a small joint effusion but noevidence of acute osseous changes and x-ray of the right knee showed no acute pathology. He is evaluated to evaluate for debility due to bilateral knee pain. [facility] Medical History Cataract Gout Home Medications prednisone 20 mg tablet 40 mg (2 x 20 mg) PO DAILY 10 days #20 tabs 04/21/23 [Rx Last Taken Unknown] hydrocodone-acetaminophen 5-325mg 5mg-325mg 1 tab PO Q4H PRN PRN Pain 2 days #4 TABLETS 04/28/23 [Rx Last Taken Unknown] meloxicam 7.5 mg tablet 7.5 mg PO DAILY #20 tabs 04/28/23 [Rx Last Taken Unknown] prednisone 20 mg tablet 40 mg (2 x 20 mg) PO DAILY 7 days #14 tabs 05/06/23 [Rx Last Taken Unknown] prednisone 20 mg tablet 40 mg (2 x 20 mg) PO DAILY #10 tabs 05/15/23 [Rx Last Taken Unknown] prednisone 20 mg tablet 60 mg (3 x 20 mg) PO DAILY #18 TABLETS 06/08/23 [Rx Last Taken Unknown] prednisone 50 mg tablet 50 mg PO DAILY #5 tabs 07/29/23 [Rx Last Taken Unknown] prednisone 20 mg tablet 60 mg (3 x 20 mg) PO DAILY #18 TABLETS 08/03/23 [Rx Last Taken Unknown] allopurinol 100 mg tablet 100 mg PO DAILY gout 11/26/23 [History Last Taken Unknown] Allergy/AdvReac Type Severity Reaction Status Date / Time No Known Allergies Allergy Verified 11/26/23 05:45 Family History Mother Cancer Surgical History H/O eye surgery Social History household members: other Smoking Status: Never smoker substance use type: does not use ROS Constitutional Constitutional: Reports malaise and weakness; Denies anorexia, chills, fatigue or fever(s) Eyes Eyes: Denies change in vision ENT HEENT: Denies dysphagia, headache(s), hearing loss, loss taste/smell or sore throat Cardiovascular Cardiovascular: Denies chest pain, edema, orthopnea or paroxysmal nocturnal dyspnea Gastrointestinal Gastrointestinal: Denies abdominal pain, diarrhea or hematochezia Genitourinary Genitourinary: Denies urinary frequency Musculoskeletal Musculoskeletal: Reports joint pain and limited range of motion; Denies back pain, extremity pain, joint swelling, muscle weakness, neck pain or stiffness Integumentary Integumentary: Denies jaundice Neurologic Neurologic: Denies confusion, dizziness, focal weakness, headache(s) or numbness Vital Signs Vital Signs Vital Signs: 11/26/23 05:45 11/26/23 05:48 11/26/23 05:48 Temperature 99.7 F H Temperature Source Temporal Pulse Rate 123 H Respiratory Rate 16 Respiratory Effort Normal Respiratory Pattern Normal Blood Pressure 187/140 H 179/113 H Blood Pressure Mean 155 135 Pulse Ox 98 Oxygen Delivery Method 11/26/23 08:52 11/26/23 10:00 Temperature Temperature Source Pulse Rate 74 Respiratory Rate 16 16 Respiratory Effort Respiratory Pattern Blood Pressure 159/96 H Blood Pressure Mean 117 Pulse Ox 95 Oxygen Delivery Method Room Air Weight Weight: 251 lb 1.704 oz Body Mass Index (BMI) 31.4 Physical Exam Const alert, oriented x3 and no apparent distress General Appearance: cooperative and well developed HEENT normocephalic, head/scalp atraumatic and oropharynx normal Eyes PERRL and EOMs intact bilaterally Neck no lymphadenopathy and supple Lymph Lymphatic: no lymphadenopathy noted Resp normal respiratory effort, normal air movement and clear to auscultation bilaterally Cardio regular rate, regular rhythm, S1 normal heart sound, S2 normal heart sound, no murmurs, no rub and peripheral pulses 2+ throughout GI normal to inspection, nondistended, normoactive bowel sounds, soft to palpation,non-tender and non-distended Extremity normal capillary refill and no clubbing, cyanosis or edema Extremity Narrative: has tenderness with flexion of leg at knee. Has mild swelling and minimal differential warmth of right knee, no evidence of injury or fracture General Extremity: no tenderness to palpation of joints or extremities Neuro CN's II-XII intact bilaterally, no focal motor deficits and no sensory deficits noted Motor Exam: general weakness Psych thought process normal and cooperative Appearance: appropriate Results Lab / Micro Data 11/26/23 06:40 11/26/23 06:40 Labs: Laboratory Results - last 24 hr 11/26/23 06:40: WBC 10.1, RBC 5.13, Hgb 16.0, Hct 47.9, MCV 93.4, MCH 31.2, MCHC33.4, RDW Std Deviation 44.3 H, RDW Coeff of May 12.9, Plt Count 432, MPV 10.2, Immature Gran % (Auto) 1.200 H, Neut % (Auto) 67.6, Lymph % (Auto) 19.9, [place] % (Auto) 10.4 H, Eos % (Auto) 0.5, Baso % (Auto) 0.4, Absolute Neuts (auto) 6.8, Absolute Lymphs (auto) 2.00, Nucleated RBC % 0, Sodium 136, Potassium 3.8, Chloride 104, Carbon Dioxide 20.0 L, Anion Gap 12, BUN 35 H, Creatinine 2.00 H, Estim Creat Clear Calc 46.94, Est GFR (MDRD) Af Amer 44 L, Est GFR (MDRD) Non-Af36 L, BUN/Creatinine Ratio 17.5, Glucose 116 H, Calcium 9.7, Total Bilirubin 0.70, AST 22, ALT 24, Alkaline Phosphatase 103, Total Creatine Kinase 126, TotalProtein 9.2 H, Albumin 3.1 L, Globulin 6.1 H, Albumin/Globulin Ratio 0.5 L 11/26/23 08:15: Urine Color Yellow, Urine Clarity Clear, Urine pH 5.0, Ur Specific [place] 1.025, Urine Protein 30 H, Urine Glucose (UA) Normal, Urine Ketones 15 H, Urine Occult Blood 10 H, Urine Nitrite Negative, Urine Bilirubin Negative, Urine Urobilinogen 4 H, Ur Leukocyte Esterase 25 H, Urine RBC 0-5 SEEN, Urine WBC 0-5 SEEN, Ur Squamous Epith Cells 0-5 SEEN, Urine Bacteria 0 SEEN, Urine Mucus 0 SEEN Imagaing Radiology Impression Knee X-Ray 11/26/23 07:25 IMPRESSION: No evidence of acute osseous changes. Small joint effusion. Electronically Signed: Ezio Pickard MD at 8:51 EST Reading Location ID and State: [facility] / [place] Tel , Service support , Knee X-Ray 11/26/23 07:25 IMPRESSION: No evidence of acute fracture. Electronically Signed: Ezio Pickard MD at 8:38 EST , Assessment & Plan Assessment/Plan (1) Weakness: (2) Debility: PLAN: Plan #Debility and weakness due to bilateral knee pain * Etiology of knee pain is unclear. He does have a history of gout. Right knee is only minimally swollen and tender he has a mild effusion there. This may be contributing to the pain. * Admit to MedSurg. Consult PT OT. Fall precautions. * P.o. Tylenol and p.o. oxycodone as needed for pain. * If pain persists and worsens, will consult orthopedic surgery. * #MARLEY: CR is 2. Likely due to decreased intake as patient says he has iona lying in bed for the past 4 days. CPK was only 126. Hydrate with fluids and monitor. #History of gout: was on prednisone. Will hold this for now as I dont see any clear evidence of gout flare up. DVT prophylaxis: SCDs COde status: full code * Patient counseled extensively about different types of CODE STATUS including full code, DNR CCA and DNR CCA. Patient elects to be full code. Total fa ce-to-face time 16 minutes. * Total time spent on evaluation and management of patient, reviewing chart, discussing plan with patient, discussion with nursing and ancillary staff as well as documentation:55 mins Charges/Coding Visit Charges Inpatient E&M: 22173 Init Hosp L2 Procedures Hospitalists Procedures: 85774 Advncd Care Plan 30 Min 11/27/23 1501 <Electronically signed by Christiane Martin MD> Cosigner Signature (if applicable): CC: Dr. Rere Aguiar MD; Dr. Christiane Martin MD~ Signed [facility] Work Phone: 1(207) 479-829512-30-2023 Progress note Author [facility] November 27, 2023 3:01pm Note Date/Time November 27, 2023 10:[address] [place] [address] Health System Medical Records Department [address] [place] [address] Progress Note 11/27/23 1041 MR#: [id number] Acct: [id number] Name: XIANG WEST Rep #:[id number] : 1965 58 From: Christiane Martin MD PCP: Dr. Rere Aguiar MD Status:ADM [facility] Location: [place] [address] Subjective Subjective Patient seen and examined. He states his knee pain was better but he now feels like he has some pain in his ankles. Overall pain has improved but he would want 1 more day before he is discharged. Blood pressure is elevated. Patient states his blood pressure usually runs in the 120s and 130s when he goes to his doctor. Review of systems otherwise negative. Objective Data Objective Data Vital Signs: Vital Signs Temp Pulse Resp BP Pulse Ox O2 Del Method 98.3 F 81 16 177/99 H 100 Room Air 11/27/23 08:55 11/27/23 08:55 11/27/23 08:55 11/27/23 08:55 11/27/23 08:55 11/27/23 08:55 Oxygen Delivery Method Room Air Weight: 241 lb Body Mass Index (BMI) 30.1 Intake & Output: Intake and Output for Last 24 Hours 11/25/23 11/26/23 11/27/23 23:59 23:59 23:59 Intake Total 3870.83 / 3870.83 985.42 / 985.42 Output Total 500 / 500 Balance 3870.83 / 3870.83 485.42 / 485.42 Medical Nutrition Assessment Dietitian: Malnutrition Criteria Met Start: 11/26/23 15:18 Freq: Status: Active Protocol: Document 11/26/23 15:18 SLA (Rec: 11/26/23 15:18 SLA Desktop) Nutrition Malnutrition Evidence of Malnutrition Exists Yes Malnutrition (severe): Acute Illness/Injury Evidenced By Suboptimal Energy Intake ( Severe),Weight Loss (Severe) Clinical Problem Acute Disease or Injury Related Malnutrition Etiology related to inability to access food/water d/t unable to get out of bed x 4 days d/t alicia knee pain Signs/Symptoms as evidenced by 11% unintended wt loss and <75% of est nutritional needs x 4 days 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 Status Active Problem Recommendation Dietitian Recommendations/Changes Continue Regular diet Allow snacks tid between meals as desired by pt Lab / Micro Data 11/27/23 06:16 11/27/23 06:16 Labs: Laboratory Results - last 24 hr 11/27/23 06:16: WBC 8.1, RBC 4.05 L, Hgb 12.1 L, Hct 38.6 L, MCV 95.3 H, MCH 29.9, MCHC 31.3 L D, RDW Std Deviation 45.3 H, RDW Coeff of May 12.9, Plt Count 339, MPV 9.8, Immature Gran % (Auto) 0.500, Neut % (Auto) 65.9, Lymph % (Auto) 20.5, [place] % (Auto) 10.6 H, Eos % (Auto) 2.0, Baso % (Auto) 0.5, Absolute Neuts (auto) 5.4, Absolute Lymphs (auto) 1.67, Nucleated RBC % 0, Sodium 137, Potassium 4.5, Chloride 108 H, Carbon Dioxide 29.0, Anion Gap 0 L, BUN 26 H, Creatinine 1.12, Estim Creat Clear Calc 83.83, Est GFR (MDRD) Af Amer 86, Est GFR (MDRD) Non-Af 71, BUN/Creatinine Ratio 23.2 H, Glucose 87, Calcium 8.4 L Physical Exam Const alert, oriented x3 and no apparent distress General Appearance: cooperative and well developed HEENT normocephalic, head/scalp atraumatic and oropharynx normal Eyes PERRL and EOMs intact bilaterally Neck no lymphadenopathy and supple Lymph Lymphatic: no lymphadenopathy noted Resp normal respiratory effort, normal air movement and clear to auscultation bilaterally Cardio regular rate, regular rhythm, S1 normal heart sound, S2 normal heart sound, no murmurs, no rub and peripheral pulses 2+ throughout GI normal to inspection, nondistended, normoactive bowel sounds, soft to palpation,non-tender and non-distended Extremity normal capillary refill and no clubbing, cyanosis or edema Extremity Narrative: has tenderness with flexion of leg at knee. Has mild swelling and minimal differential warmth of right knee, no evidence of injury or fracture General Extremity: no tenderness to palpation of joints or extremities Neuro CN's II-XII intact bilaterally, no focal motor deficits and no sensory deficits noted Motor Exam: general weakness Psych thought process normal and cooperative Appearance: appropriate Assessment & Plan Assessment/Plan (1) Weakness: (2) Debility: PLAN: Plan #Debility and weakness due to bilateral knee pain * pain is improving, though he says he now has pain in his ankles * able to ambulate today. * PT/OT on board. Fall precautions. * Admit to Me Consult PT OT. Fall precautions. * P.o. Tylenol and p.o. oxycodone as needed for pain. * #MARLEY:resolved. Cr is down to 1.12. #History of gout: was on prednisone. Will hold this for now as I dont see any clear evidence of gout flare up. DVT prophylaxis: SCDs COde status: full code * * Total time spent on evaluation and management of patient, reviewing chart, discussing plan with patient, discussion with nursing and ancillary staff as well as documentation:32 mins Charges/Coding Visit Charges Inpatient E&M: 58622 Subs Hosp L2 11/27/23 1501 <Electronically signed by Christiane Martin MD> Christiane Martin MD Cosigner Signature (if applicable): CC: ~ Signed [facility] Work Phone: [phone]) 856-784612-29-2023 Discharge summary Author Antonio Jarvis [facility] November 26, 2023 11:43am Note Date/Time November 26, 2023 6:55am [facility] Medical Records Department [address] [place] [address] Emergency Department Summary 11/26/23 MR#: [id number] Acct: [id number] Name: XIANG WEST Rep #:[id number] : 1965 58 From: Rei German DO PCP: Dr. Rere Aguiar MD Status:REG ER Location: ED ADDENDUM by Dr. Antonio Jarvis MD on 11/26/23 at 1143 Patient was seen by shelter case manager. They contacted hospitalist. I then discussedcase with the hospitalist. Patient will be brought in due to his generalized weakness, acute kidney injury, and inability to ambulate. 11/26/23 1143<Electronically signed by Antonio Jarvis MD> Cosigner Signature (if applicable): cc: Dr. Rere Aguiar MD ~* Signed HPI History of Present Illness Chief Complaint: Weakness Narrative Narrative: 58-year-old male presenting with weakness. He states it is all secondary to bilateral knee pain. He denies any trauma. He states he has a history of gout but does not believe he is having a gout flare in his either of his legs. He states that his knees. He states is been ongoing for 4 days and his pain is so severe he is been unable to walk. He states that he is only urinated twice in 4days and is only had 1 bowel movement. He states he has been surviving off of canned peaches at the bedside. He states that when he had to get up and use therestroom he crawled on his painful knees to the bathroom. [facility] myself asking him questions about how he ate and drank while helaid in bed for 4 days. I explained to them that I have to ask questions in order to get the right workup. He states he does not understand why everybody is asking him so many questions. I explained to him that he says he has been inbed for 4-day does not had not had a drink but has been living off canned peaches. It is also concerning if he only made and voided twice in the last couple of days so we are trying to get his input and output. He then asked for a glass of water. Patient states at that point that he was able to ambulate to the EMS cot and get over the pain for short time. Patient states he has no other medical problems other than gout. [facility] Medical History Cataract Gout Home Medications prednisone 20 mg tablet 40 mg (2 x 20 mg) PO DAILY 10 days #20 tabs 04/21/23 [Rx Last Taken Unknown] hydrocodone-acetaminophen 5-325mg 5mg-325mg 1 tab PO Q4H PRN PRN Pain 2 days #4 TABLETS 04/28/23 [Rx Last Taken Unknown] meloxicam 7.5 mg tablet 7.5 mg PO DAILY #20 tabs 04/28/23 [Rx Last Taken Unknown] prednisone 20 mg tablet 40 mg (2 x 20 mg) PO DAILY 7 days #14 tabs 05/06/23 [Rx Last Taken Unknown] prednisone 20 mg tablet 40 mg (2 x 20 mg) PO DAILY #10 tabs 05/15/23 [Rx Last Taken Unknown] prednisone 20 mg tablet 60 mg (3 x 20 mg) PO DAILY #18 TABLETS 06/08/23 [Rx Last Taken Unknown] prednisone 50 mg tablet 50 mg PO DAILY #5 tabs 07/29/23 [Rx Last Taken Unknown] prednisone 20 mg tablet 60 mg (3 x 20 mg) PO DAILY #18 TABLETS 08/03/23 [Rx Last Taken Unknown] Allergy/AdvReac Type Severity Reaction Status Date / Time No Known Allergies Allergy Verified 11/26/23 05:45 Family History Mother Cancer Surgical History H/O eye surgery Social History household members: other Smoking Status: Never smoker substance use type: does not use ROS ROS ED Constitutional Constitutional ED: Denies chills, fever(s) or sweats Eyes Eyes: Denies change in vision ENT ENT ED: Denies dysphagia or sore throat Cardiovascular Cardiovascular: Denies chest pain, leg edema, palpitations or racing heartbeat Respiratory/Chest Respiratory/Chest: Denies cough, dyspnea or dyspnea on exertion Gastrointestinal Gastrointestinal: Denies abdominal pain, diarrhea, nausea or vomiting Genitourinary Genitourinary ED: Denies dysuria, hematuria or urinary frequency Musculoskeletal Musculoskeletal: Reports other Details: Bilateral knee pain ; Denies back pain or neck pain Integumentary Reports other Details: Superficial abrasion to the proximal right calf ; Denies rash or wounds Neurologic Neurologic: Denies headache(s), paresthesias or weakness Psychiatric Psychiatric: Denies anxiety or depression EXAM Physical Exam Const Vital Signs: 11/26/23 05:45 11/26/23 05:48 11/26/23 05:48 Temperature 99.7 F H Temperature Source Temporal Pulse Rate 123 H Respiratory Rate 16 Respiratory Effort Normal Respiratory Pattern Normal Blood Pressure 187/140 H 179/113 H Blood Pressure Mean 155 135 Pulse Ox 98 Positive well nourished and well developed General Appearance ED: well developed and NAD HEENT Reports moist mucous membranes Negative for trauma Eyes PERRL and EOMs intact bilaterally Chest Wall inspection of chest normal Resp normal respiratory effort Cardio regular rate and regular rhythm Extremity Extremity Narrative: There is tenderness to palpation of the right knee. I found no evidence of ligamentous laxity, edema, erythema, warmth. Patient unable to extend the knee under his own strength. The left knee is not tender to palpation and I was ableto palpate this while evaluating the right knee and with distraction there is nopain. Individually he states is painful all over when I evaluated. Again thereis no evidence of ligamentous laxity, edema, erythema, warmth. On the right legthere appears to be a superficial abrasion on the proximal calf medially Neuro oriented x3 and CN's II-XII intact bilaterally Sensorium / Orientation: alert Motor Exam: general weakness Psych mental status grossly normal Skin Skin Narrative: As noted above MDM MDM MDM Narrative Medical decision making narrative: Patient presenting for evaluation of general weakness. He states his bilateral knees hurt so bad he has been unable to walk. He did however state that he was able to crawl on his painful knees to the bathroom and he is only urinated twiceand defecated once in the last 4 days. Patient does however states he was able to get up and walk to the EMS cot when EMS arrived. It is unclear why he cannoteven lift his leg on examination since he was able to ambulate just a few minutes ago. Externally there is no visible signs of infection, septic knee joint, edema, erythema, trauma. There is no pain with distraction. Patient is a little tachycardic and a little hypertensive. He denies any other symptoms other than painful knees and weakness. Patient also states that he has been living on canned peaches which she has been at the bedside. I did ask him when he had a occasion to go to the restroom that he drink some water while he was inthere and the patient will not answer me about this question. Patient is very agitated that he has to answer questions about why he has not been out of bed. I did clinical counselor him again that we are just trying to get inputs and outputs to tryto determine if he is dehydrated or if he is malnourished. Nursing also tells me that prior to my going into the room to try to ask similar basic questions and the patient told him to get out of the room he will wait for the doctor. Differential includes dehydration, electrolyte abnormalities, rhabdomyolysis, renal failure, gout. CBC was obtained to assess white blood cell count, hemoglobin, platelets. CMP to assess liver function, renal function, electrolytes. CPK to assess for rhabdomyolysis. Urinalysis to assess for UTI. Bilateral knee x-rays were obtained. Patient was given a liter of normal salineand I did give him a dose of Toradol for his knee pain. Patient states he currently cannot get up and walk. I reviewed bilateral knee x-rays and I do notsee an evidence of acute findings. I am still waiting for radiology to interpret these. CBC is unremarkable. CPK is normal. Creatinine is elevated today at 2.00 and this does technically meet criteria for MARLEY. Patient was given another second liter of normal saline. Patient still stating that he cannot get up and walk and he wants to be admitted secondary to this. I discussed this with the hospitalist at 8:35 AM. He states he does not believe the patient needs to be admitted and recommended that I get the shelter case manager involved. There is no shelter case manager here as it is 8:35 in the morning and nobodywill be around till 10 PM. I will sign this out to the incoming ED physician for monitoring until shelter case manager can be consulted. Impression: 1. Acute kidney injury 2. Debility 3. Bilateral knee pain Lab Data Attestation: I reviewed the patient's lab results. Labs: Laboratory Results - last 24 hr 11/26/23 06:40 WBC 10.1 RBC 5.13 Hgb 16.0 Hct 47.9 MCV 93.4 MCH 31.2 MCHC 33.4 RDW Std Deviation 44.3 H RDW Coeff of May 12.9 Plt Count 432 MPV 10.2 Immature Gran % (Auto) 1.200 H Neut % (Auto) 67.6 Lymph % (Auto) 19.9 [place] % (Auto) 10.4 H Eos % (Auto) 0.5 Baso % (Auto) 0.4 Absolute Neuts (auto) 6.8 Absolute Lymphs (auto) 2.00 Nucleated RBC % 0 Sodium 136 Potassium 3.8 Chloride 104 Carbon Dioxide 20.0 L Anion Gap 12 BUN 35 H Creatinine 2.00 H Estim Creat Clear Calc 46.94 Est GFR (MDRD) Af Amer 44 L Est GFR (MDRD) Non-Af 36 L BUN/Creatinine Ratio 17.5 Glucose 116 H Calcium 9.7 Total Bilirubin 0.70 AST 22 ALT 24 Alkaline Phosphatase 103 Total Creatine Kinase 126 Total Protein 9.2 H Albumin 3.1 L Globulin 6.1 H Albumin/Globulin Ratio 0.5 L Discharge Plan Triage Chief Complaint: Weakness ED Provider: Rei German Dx/Rx/DC Orders Prescriptions: No Action prednisone 20 mg tablet 40 mg PO DAILY 10 Days Qty: 20 0RF meloxicam 7.5 mg tablet 7.5 mg PO DAILY Qty: 20 0RF hydrocodone-acetaminophen [hydrocodone-acetaminophen] 5-325 mg tablet 1 tab PO Q4H PRN PRN (Reason: Pain) 2 Days Qty: 4 0RF prednisone 20 mg tablet 40 mg PO DAILY 7 Days Qty: 14 0RF prednisone 20 mg tablet 40 mg PO DAILY Qty: 10 0RF prednisone 20 mg tablet 60 mg PO DAILY Qty: 18 0RF prednisone 20 mg tablet 60 mg PO DAILY Qty: 18 0RF prednisone 50 mg tablet 50 mg PO DAILY Qty: 5 0RF Primary Care Provider: Rere Aguiar Referrals: Rere Aguiar MD [Primary Care Provider] - What to do if you have Problems For any increased pain, shortness of breath, bleeding, nausea or vomiting, chestpain, or any unexpected problems, contact your Primary Care Provider. Call [facility] ([phone]) or report to the closest Emergency Room. Call 911 if necessary. 11/26/23 0836 <Electronically signed by Rei German DO> Cosigner Signature (if applicable): CC: Dr. Rere Aguiar MD ~ Signed [facility] Work Phone: [phone]) 142-586812-29-2023 [facility] Medical Records Department [address] [place] [address] History Physical Exam 11/26/23 1126 MR#: [id number] Acct: [id number] Name: XIANG WEST Rep #: [id number] : 1965 58 From: Christiane Martin MD PCP: Dr. Rere Aguiar MD Status:ADM ANITA [facility] HPI - General General Date of Admission: 11/26/23 Date of Service: 11/26/23 Chief Complaint: weakness and debility HPI Narrative XIANG WEST, is a 58 M with a past medical history as outlined who presents via the ED on 11/26/2023 with a complaint of weakness and debility as well as bilateral knee pain. Patient said he had been having pain in his knees for about 4 days now and could not ambulate. He had pretty much been lying in bed all 4 days. He said he thought it would get better but his symptoms did not improve so he called the EMS today. He denied any trauma to his knees, any frequent falls, any dizziness or lightheadedness, any fever or chills or any other symptoms. He does admit to a history of gout as far as he knows he does not have arthritis. Review of systems otherwise negative. At time of review, vitals were blood pressure 159/96, respiratory rate of 16 and pulse rate of 74. Temperature was initially 99.7 when he came into the ED but went down to 98.3 Fahrenheit. He was saturating at 99% on room air. CBC was unremarkable. BMP shows sodium of 136 with creatinine of 2. Urinalysis showed no evidence of UTI. X-ray of the left knee showed a small joint effusion but no evidence of acute osseous changes and x-ray of the right knee showed no acute pathology. He is evaluated to evaluate for debility due to bilateral knee pain. [facility] Medical History Cataract Gout Home Medications prednisone 20 mg tablet 40 mg (2 x 20 mg) PO DAILY 10 days #20 tabs 04/21/23 [Rx Last Taken Unknown] hydrocodone-acetaminophen 5-325mg 5mg-325mg 1 tab PO Q4H PRN PRN Pain 2 days #4 TABLETS 04/28/23 [Rx Last Taken Unknown] meloxicam 7.5 mg tablet 7.5 mg PO DAILY #20 tabs 04/28/23 [Rx Last Taken Unknown] prednisone 20 mg tablet 40 mg (2 x 20 mg) PO DAILY 7 days #14 tabs 05/06/23 [Rx Last Taken Unknown] prednisone 20 mg tablet 40 mg (2 x 20 mg) PO DAILY #10 tabs 05/15/23 [Rx Last Taken Unknown] prednisone 20 mg tablet 60 mg (3 x 20 mg) PO DAILY #18 TABLETS 06/08/23 [Rx Last Taken Unknown] prednisone 50 mg tablet 50 mg PO DAILY #5 tabs 07/29/23 [Rx Last Taken Unknown] prednisone 20 mg tablet 60 mg (3 x 20 mg) PO DAILY #18 TABLETS 08/03/23 [Rx Last Taken Unknown] allopurinol 100 mg tablet 100 mg PO DAILY gout 11/26/23 [History Last Taken Unknown] Allergy/AdvReac Type Severity Reaction Status Date / Time No Known Allergies Allergy Verified 11/26/23 05:45 Family History Mother Cancer Surgical History H/O eye surgery Social History household members: other Smoking Status: Never smoker substance use type: does not use ROS Constitutional Constitutional: Reports malaise and weakness; Denies anorexia, chills, fatigue or fever(s) Eyes Eyes: Denies change in vision ENT HEENT: Denies dysphagia, headache(s), hearing loss, loss taste/smell or sore throat Cardiovascular Cardiovascular: Denies chest pain, edema, orthopnea or paroxysmal nocturnal dyspnea Gastrointestinal Gastrointestinal: Denies abdominal pain, diarrhea or hematochezia Genitourinary Genitourinary: Denies urinary frequency Musculoskeletal Musculoskeletal: Reports joint pain and limited range of motion; Denies back pain, extremity pain, joint swelling, muscle weakness, neck pain or stiffness Integumentary Integumentary: Denies jaundice Neurologic Neurologic: Denies confusion, dizziness, focal weakness, headache(s) or numbness Vital Signs Vital Signs Vital Signs: 11/26/23 05:45 11/26/23 05:48 11/26/23 05:48 Temperature 99.7 F H Temperature Source Temporal Pulse Rate 123 H Respiratory Rate 16 Respiratory Effort Normal Respiratory Pattern Normal Blood Pressure 187/140 H 179/113 H Blood Pressure Mean 155 135 Pulse Ox 98 Oxygen Delivery Method 11/26/23 08:52 11/26/23 10:00 Temperature Temperature Source Pulse Rate 74 Respiratory Rate 16 16 Respiratory Effort Respiratory Pattern Blood Pressure 159/96 H Blood Pressure Mean 117 Pulse Ox 95 Oxygen Delivery Method Room Air Weight Weight: 251 lb 1.704 oz Body Mass Index (BMI) 31.4 Physical Exam Const alert, oriented x3 and no apparent distress General Appearance: cooperative and well developed HEENT normocephalic, head/scalp atraumatic and oropharynx normal (more content not included)...[facility]12-29-2023 Discharge summary Author Antonio Jarvis [facility] November 26, 2023 11:43am Note Date/Time November 26, 2023 6:55am [facility] Medical Records Department [address] [place] [address] Emergency Department Summary 11/26/23 MR#: [id number] Acct: [id number] Name: XIANG WEST Rep #:[id number] : 1965 58 From: Rei German DO PCP: Dr. Rere Aguiar MD Status:REG ER Location: ED ADDENDUM by Dr. Antonio Jarvis MD on 11/26/23 at 1143 Patient was seen by shelter case manager. They contacted hospitalist. I then discussedcase with the hospitalist. Patient will be brought in due to his generalized weakness, acute kidney injury, and inability to ambulate. 11/26/23 1143<Electronically signed by Antonio Jarvis MD> Cosigner Signature (if applicable): cc: Dr. Rere Aguiar MD ~* Signed HPI History of Present Illness Chief Complaint: Weakness Narrative Narrative: 58-year-old male presenting with weakness. He states it is all secondary to bilateral knee pain. He denies any trauma. He states he has a history of gout but does not believe he is having a gout flare in his either of his legs. He states that his knees. He states is been ongoing for 4 days and his pain is so severe he is been unable to walk. He states that he is only urinated twice in 4days and is only had 1 bowel movement. He states he has been surviving off of canned peaches at the bedside. He states that when he had to get up and use therestroom he crawled on his painful knees to the bathroom. [facility] myself asking him questions about how he ate and drank while helaid in bed for 4 days. I explained to them that I have to ask questions in order to get the right workup. He states he does not understand why everybody is asking him so many questions. I explained to him that he says he has been inbed for 4-day does not had not had a drink but has been living off canned peaches. It is also concerning if he only made and voided twice in the last couple of days so we are trying to get his input and output. He then asked for a glass of water. Patient states at that point that he was able to ambulate to the EMS cot and get over the pain for short time. Patient states he has no other medical problems other than gout. [facility] Medical History Cataract Gout Home Medications prednisone 20 mg tablet 40 mg (2 x 20 mg) PO DAILY 10 days #20 tabs 04/21/23 [Rx Last Taken Unknown] hydrocodone-acetaminophen 5-325mg 5mg-325mg 1 tab PO Q4H PRN PRN Pain 2 days #4 TABLETS 04/28/23 [Rx Last Taken Unknown] meloxicam 7.5 mg tablet 7.5 mg PO DAILY #20 tabs 04/28/23 [Rx Last Taken Unknown] prednisone 20 mg tablet 40 mg (2 x 20 mg) PO DAILY 7 days #14 tabs 05/06/23 [Rx Last Taken Unknown] prednisone 20 mg tablet 40 mg (2 x 20 mg) PO DAILY #10 tabs 05/15/23 [Rx Last Taken Unknown] prednisone 20 mg tablet 60 mg (3 x 20 mg) PO DAILY #18 TABLETS 06/08/23 [Rx Last Taken Unknown] prednisone 50 mg tablet 50 mg PO DAILY #5 tabs 07/29/23 [Rx Last Taken Unknown] prednisone 20 mg tablet 60 mg (3 x 20 mg) PO DAILY #18 TABLETS 08/03/23 [Rx Last Taken Unknown] Allergy/AdvReac Type Severity Reaction Status Date / Time No Known Allergies Allergy Verified 11/26/23 05:45 Family History Mother Cancer Surgical History H/O eye surgery Social History household members: other Smoking Status: Never smoker substance use type: does not use ROS ROS ED Constitutional Constitutional ED: Denies chills, fever(s) or sweats Eyes Eyes: Denies change in vision ENT ENT ED: Denies dysphagia or sore throat Cardiovascular Cardiovascular: Denies chest pain, leg edema, palpitations or racing heartbeat Respiratory/Chest Respiratory/Chest: Denies cough, dyspnea or dyspnea on exertion Gastrointestinal Gastrointestinal: Denies abdominal pain, diarrhea, nausea or vomiting Genitourinary Genitourinary ED: Denies dysuria, hematuria or urinary frequency Musculoskeletal Musculoskeletal: Reports other Details: Bilateral knee pain ; Denies back pain or neck pain Integumentary Reports other Details: Superficial abrasion to the proximal right calf ; Denies rash or wounds Neurologic Neurologic: Denies headache(s), paresthesias or weakness Psychiatric Psychiatric: Denies anxiety or depression EXAM Physical Exam Const Vital Signs: 11/26/23 05:45 11/26/23 05:48 11/26/23 05:48 Temperature 99.7 F H Temperature Source Temporal Pulse Rate 123 H Respiratory Rate 16 Respiratory Effort Normal Respiratory Pattern Normal Blood Pressure 187/140 H 179/113 H Blood Pressure Mean 155 135 Pulse Ox 98 Positive well nourished and well developed General Appearance ED: well developed and NAD HEENT Reports moist mucous membranes Negative for trauma Eyes PERRL and EOMs intact bilaterally Chest Wall inspection of chest normal Resp normal respiratory effort Cardio regular rate and regular rhythm Extremity Extremity Narrative: There is tenderness to palpation of the right knee. I found no evidence of ligamentous laxity, edema, erythema, warmth. Patient unable to extend the knee under his own strength. The left knee is not tender to palpation and I was ableto palpate this while evaluating the right knee and with distraction there is nopain. Individually he states is painful all over when I evaluated. Again thereis no evidence of ligamentous laxity, edema, erythema, warmth. On the right legthere appears to be a superficial abrasion on the proximal calf medially Neuro oriented x3 and CN's II-XII intact bilaterally Sensorium / Orientation: alert Motor Exam: general weakness Psych mental status grossly normal Skin Skin Narrative: As noted above MDM MDM MDM Narrative Medical decision making narrative: Patient presenting for evaluation of general weakness. He states his bilateral knees hurt so bad he has been unable to walk. He did however state that he was able to crawl on his painful knees to the bathroom and he is only urinated twiceand defecated once in the last 4 days. Patient does however states he was able to get up and walk to the EMS cot when EMS arrived. It is unclear why he cannoteven lift his leg on examination since he was able to ambulate just a few minutes ago. Externally there is no visible signs of infection, septic knee joint, edema, erythema, trauma. There is no pain with distraction. Patient is a little tachycardic and a little hypertensive. He denies any other symptoms other than painful knees and weakness. Patient also states that he has been living on canned peaches which she has been at the bedside. I did ask him when he had a occasion to go to the restroom that he drink some water while he was inthere and the patient will not answer me about this question. Patient is very agitated that he has to answer questions about why he has not been out of bed. I did clinical counselor him again that we are just trying to get inputs and outputs to tryto determine if he is dehydrated or if he is malnourished. Nursing also tells me that prior to my going into the room to try to ask similar basic questions and the patient told him to get out of the room he will wait for the doctor. Differential includes dehydration, electrolyte abnormalities, rhabdomyolysis, renal failure, gout. CBC was obtained to assess white blood cell count, hemoglobin, platelets. CMP to assess liver function, renal function, electrolytes. CPK to assess for rhabdomyolysis. Urinalysis to assess for UTI. Bilateral knee x-rays were obtained. Patient was given a liter of normal salineand I did give him a dose of Toradol for his knee pain. Patient states he currently cannot get up and walk. I reviewed bilateral knee x-rays and I do notsee an evidence of acute findings. I am still waiting for radiology to interpret these. CBC is unremarkable. CPK is normal. Creatinine is elevated today at 2.00 and this does technically meet criteria for MARLEY. Patient was given another second liter of normal saline. Patient still stating that he cannot get up and walk and he wants to be admitted secondary to this. I discussed this with the hospitalist at 8:35 AM. He states he does not believe the patient needs to be admitted and recommended that I get the shelter case manager involved. There is no shelter case manager here as it is 8:35 in the morning and nobodywill be around till 10 PM. I will sign this out to the incoming ED physician for monitoring until shelter case manager can be consulted. Impression: 1. Acute kidney injury 2. Debility 3. Bilateral knee pain Lab Data Attestation: I reviewed the patient's lab results. Labs: Laboratory Results - last 24 hr 11/26/23 06:40 WBC 10.1 RBC 5.13 Hgb 16.0 Hct 47.9 MCV 93.4 MCH 31.2 MCHC 33.4 RDW Std Deviation 44.3 H RDW Coeff of May 12.9 Plt Count 432 MPV 10.2 Immature Gran % (Auto) 1.200 H Neut % (Auto) 67.6 Lymph % (Auto) 19.9 [place] % (Auto) 10.4 H Eos % (Auto) 0.5 Baso % (Auto) 0.4 Absolute Neuts (auto) 6.8 Absolute Lymphs (auto) 2.00 Nucleated RBC % 0 Sodium 136 Potassium 3.8 Chloride 104 Carbon Dioxide 20.0 L Anion Gap 12 BUN 35 H Creatinine 2.00 H Estim Creat Clear Calc 46.94 Est GFR (MDRD) Af Amer 44 L Est GFR (MDRD) Non-Af 36 L BUN/Creatinine Ratio 17.5 Glucose 116 H Calcium 9.7 Total Bilirubin 0.70 AST 22 ALT 24 Alkaline Phosphatase 103 Total Creatine Kinase 126 Total Protein 9.2 H Albumin 3.1 L Globulin 6.1 H Albumin/Globulin Ratio 0.5 L Discharge Plan Triage Chief Complaint: Weakness ED Provider: Rei German Dx/Rx/DC Orders Prescriptions: No Action prednisone 20 mg tablet 40 mg PO DAILY 10 Days Qty: 20 0RF meloxicam 7.5 mg tablet 7.5 mg PO DAILY Qty: 20 0RF hydrocodone-acetaminophen [hydrocodone-acetaminophen] 5-325 mg tablet 1 tab PO Q4H PRN PRN (Reason: Pain) 2 Days Qty: 4 0RF prednisone 20 mg tablet 40 mg PO DAILY 7 Days Qty: 14 0RF prednisone 20 mg tablet 40 mg PO DAILY Qty: 10 0RF prednisone 20 mg tablet 60 mg PO DAILY Qty: 18 0RF prednisone 20 mg tablet 60 mg PO DAILY Qty: 18 0RF prednisone 50 mg tablet 50 mg PO DAILY Qty: 5 0RF Primary Care Provider: Rere Aguiar Referrals: Rere Aguiar MD [Primary Care Provider] - What to do if you have Problems For any increased pain, shortness of breath, bleeding, nausea or vomiting, chestpain, or any unexpected problems, contact your Primary Care Provider. Call [facility] ([phone]) or report to the closest Emergency Room. Call 911 if necessary. 11/26/23 0836 <Electronically signed by Rei German DO> Cosigner Signature (if applicable): CC: Dr. Rere Aguiar MD ~ Signed [facility] Work Phone: [phone] 989-270605-31-2023 History of Present illness Narrative* Niyah Bui APRN.ANTHONY - 04/28/2023 2:03 PM EDT Patient came in with complaints of severe left hand pain. Patient says has been going on for 2 weeks. Patient says is getting worse and worse. Patient cannot bend fingers or make a fist. Patient sayshe is a 10 out of 10. Upon barely touching patient's hand he screamed at the top of his lungs. Patient is being sent to the emergency room for full evaluation due to the amount of pain and lack of range of motion in his hand. Patient was okay with this care plan. [facility] German [facility] March 01, 2023 3:31pm Note Date/Time March 01, 2023 2:17 pm [facility] Medical Records Department [address] [place] [address] Emergency Department Summary 03/01/23 MR#: [id number] Acct: [id number] Name: XIANG WEST Rep #:[id number] : 1965 57 From: Rei German DO PCP: Dr. Rere Aguiar MD Status:REG ER Location: ED HPI History of Present Illness Chief Complaint: Lower Extremity Injury Narrative Narrative: 57-year-old male presented with right knee pain and swelling. He states that hewore his [employer]ili[employer] Masha shoes yesterday and today he has swelling in the right knee. He specifically states that he does not wear the shoes anymore because itcaused knee swelling in the past. Patient denies any direct trauma. He states he does have a history of gout but has never had gout in his knee so is unsure if this is a gout flareup. He can ambulate but he does have antalgic gait. [facility] Medical History (Updated 03/01/23 @ 15:[address] Rei German DO) Cataract Gout Home Medications hydrocodone-acetaminophen 5-325mg 5mg-325mg 1 tab PO Q4H PRN PRN Pain 3 days #14TABLETS 11/23/22 [Rx Last Taken Unknown] prednisone 20 mg tablet 20 mg PO BID #10 tabs 12/25/22 [Rx Last Taken Unknown] hydrocodone-acetaminophen 5-325mg 5mg-325mg 1 tab PO Q6H PRN pain 2 days #6 TABLETS 01/26/23 [Rx Last Taken Unknown] prednisone 20 mg tablet 40 mg PO DAILY 7 days #14 tabs 01/26/23 [Rx Last Taken Unknown] hydrocodone-acetaminophen 5-325mg 5mg-325mg 1 tab PO Q6H PRN PRN Pain 1 day #4 tabs 03/01/23 [Rx Last Taken Unknown] prednisone 20 mg tablet 40 mg PO DAILY #8 tabs 03/01/23 [Rx Last Taken Unknown] Allergy/AdvReac Type Severity Reaction Status Date / Time No Known Allergies Allergy Verified 03/01/23 13:55 Family History Mother Cancer Surgical History H/O eye surgery Social History household members: other Smoking Status: Never smoker substance use type: does not use ROS ROS ED Constitutional Constitutional ED: Denies chills, fever(s) or sweats Eyes Eyes: Denies blurry vision or change in vision ENT ENT ED: Denies ear pain or sore throat Cardiovascular Cardiovascular: Denies chest pain, palpitations or racing heartbeat Respiratory/Chest Respiratory/Chest: Denies cough, dyspnea or sputum Gastrointestinal Gastrointestinal: Denies abdominal pain, constipation, diarrhea, nausea or vomiting Genitourinary Genitourinary ED: Denies dysuria, hematuria or urinary frequency Musculoskeletal Musculoskeletal: Reports other Details: Right knee pain and ; Denies myalgias or neck pain Integumentary Denies abscess, Abrasions or rash Neurologic Neurologic: Denies headache(s), paresthesias or weakness Psychiatric Psychiatric: Denies anxiety, depression, suicidal ideation or suicidal thoughts Endocrine Endocrinology: Denies polydipsia or polyuria EXAM Physical Exam Const Vital Signs: 03/01/23 13:55 Temperature 97 F L Temperature Source Temporal Pulse Rate 86 Respiratory Rate 14 Blood Pressure 162/105 H Blood Pressure Mean 124 Pulse Ox 96 Oxygen Delivery Method Room Air Positive well nourished HEENT Reports moist mucous membranes Resp normal respiratory effort Extremity Extremity Narrative: Right knee tender to palpation of the patella. Some slight swelling. No ligamentous laxity. No short arc range of motion pain to suggest septic joint. No erythema or increased warmth. Psych mental status grossly normal MDM MDM MDM Narrative Medical decision making narrative: Obtained x-ray of the right knee which on my interpretation shows no acute fracture or subluxation. It does show a moderate-sized joint effusion. I do not believe he has a septic knee. He says he had gout before but he does not recall having gout in his knee. He prefers to treat this like gout however. He will be given prednisone for home. Patient request pain medicine. I told him Icould give him a short supply but that he could use NSAIDs after his steroids were finished. He can still use Tylenol. He will follow-up with his PCP to ensure resolution. Impression: 1. Right knee effusion 2. History of gout Radiography Diagnostic Testing: Clinical Impression(s) from Imaging Studies Knee X-Ray 03/01/23 14:14 IMPRESSION: Moderate size joint effusion. Electronically Signed: Americo Lanier MD at 14:57 EDT , Discharge Plan Triage Chief Complaint: Lower Extremity Injury ED Provider: Rei German Dx/Rx/DC Orders Instructions: ED Knee Effusion Prescriptions: New prednisone 20 mg tablet 40 mg PO DAILY Qty: 8 0RF hydrocodone-acetaminophen 5-325 mg tablet 1 tab PO Q6H PRN PRN (Reason: Pain) 1 Days Qty: 4 0RF No Action hydrocodone-acetaminophen [hydrocodone-acetaminophen] 1 TABLET tablet 1 tab PO Q4H PRN PRN (Reason: Pain) 3 Days Qty: 14 0RF prednisone 20 mg tablet 20 mg PO BID Qty: 10 0RF hydrocodone-acetaminophen 5-325 mg tablet 1 tab PO Q6H PRN (Reason: pain) 2 Days Qty: 6 0RF prednisone 20 mg tablet 40 mg PO DAILY 7 Days Qty: 14 0RF Stand Alone Forms: ED Work / School Excuse Primary Care Provider: Rere Aguiar Referrals: Rere Aguiar MD [Primary Care Provider] - Disposition Disposition: Home, Self Care What to do if you have Problems For any increased pain, shortness of breath, bleeding, nausea or vomiting, chestpain, or any unexpected problems, contact your Primary Care Provider. Call [facility] ([phone]) or report to the closest Emergency Room. Call 911 if necessary. 03/01/23 1531 <Electronically signed by Rei German DO> Cosigner Signature (if applicable): CC: Dr. Rere Aguiar MD ~ Signed [facility] Work Phone: Discharge summary Author Dr. Montoya [facility] January 26, 2023 11:10am Note Date/Time January 26, 2023 11:07am [facility] Medical Records Department [address] [place] [address] Emergency Department Summary 01/26/23 MR#: [id number] Acct: [id number] Name: XIANG WEST Rep #:[id number] : 1965 57 From: Ranulfo Montoya MD PCP: Dr. Rere Aguiar MD Status:REG ER Location: ED HPI History of Present Illness Chief Complaint: Other, Pain/Inj Informant: patient Narrative Narrative: 1-2 days pain in the medial right ankle without injury. States this feels like gout and he wants to stay ahead of it before it gets worse like it has in the past. He has had gout in this joint before. No other joints affected. No fevers or chills. PFSH PFSH Medical History Cataract Gout Home Medications hydrocodone-acetaminophen 5-325mg 5mg-325mg 1 tab PO Q4H PRN PRN Pain 3 days #14TABLETS 11/23/22 [Rx Last Taken Unknown] prednisone 20 mg tablet 20 mg PO BID #10 tabs 12/25/22 [Rx Last Taken Unknown] hydrocodone-acetaminophen 5-325mg 5mg-325mg 1 tab PO Q6H PRN pain 2 days #6 TABLETS 01/26/23 [Rx Last Taken Unknown] prednisone 20 mg tablet 40 mg PO DAILY 7 days #14 tabs 01/26/23 [Rx Last Taken Unknown] Allergy/AdvReac Type Severity Reaction Status Date / Time No Known Allergies Allergy Verified 12/27/22 12:46 Family History Mother Cancer Surgical History H/O eye surgery Social History household members: other Smoking Status: Never smoker substance use type: does not use ROS ROS ED Constitutional Constitutional ED: Denies chills or fever(s) Musculoskeletal Musculoskeletal: Reports extremity pain; Denies neck pain Integumentary Denies Abrasions, rash or wounds Neurologic Neurologic: Denies paresthesias or weakness EXAM Physical Exam Const Vital Signs: 01/26/23 09:19 Temperature 98.0 F Temperature Source Temporal Pulse Rate 70 Respiratory Rate 18 Blood Pressure 164/97 H Blood Pressure Mean 119 Pulse Ox 100 Oxygen Delivery Method Room Air Positive well nourished and well developed General Appearance ED: well developed and NAD Neck full ROM and supple Back/Spine normal ROM and normal to inspection Extremity full ROM Extremity Narrative: Mild tenderness around the right medial malleolus, warm compared with surrounding areas. No overt/gross erythema, patient is -[place] and difficult to tell major and/or subtle differences. Good range of motion, he does have pain at the extremes of plantarflexion and dorsiflexion of the foot. No signs of lymphangitis or abscess or other skin lesion. Neuro oriented x3, no focal motor deficits and no sensory deficits noted Sensorium / Orientation: alert Psych mental status grossly normal and thought process normal Skin no wounds Rashes: no rashes MDM MDM MDM Narrative Medical decision making narrative: I am happy to prescribe this patient a short course of prednisone and pain medication which she is requesting for this. We did discuss the possibility that this is some other type of monoarticular arthritis, and if the prednisone starts to make this worse she should discontinue and return to the ER immediately. He is comfortable with that plan. He is not on allopurinol right now, he has multiple episodes per year, I recommend close a patient follow-up for evaluation for prophylactic when this flareup is complete. Discharge Plan Triage Chief Complaint: Other, Pain/Inj ED Provider: Ranulfo Montoya Dx/Rx/DC Orders Clinical Impression: Acute right ankle pain Instructions: ED Gout Prescriptions: Continued prednisone 20 mg tablet 40 mg PO DAILY 7 Days Qty: 14 0RF Changed hydrocodone-acetaminophen 5-325 mg tablet 1 tab PO Q6H PRN (Reason: pain) 2 Days Qty: 6 0RF No Action hydrocodone-acetaminophen [hydrocodone-acetaminophen] 1 TABLET tablet 1 tab PO Q4H PRN PRN (Reason: Pain) 3 Days Qty: 14 0RF prednisone 20 mg tablet 20 mg PO BID Qty: 10 0RF Primary Care Provider: Rere Aguiar Referrals: Rere Aguiar MD [Primary Care Provider] - 3-5 Days if not improving Disposition Disposition: Home, Self Care What to do if you have Problems For any increased pain, shortness of breath, bleeding, nausea or vomiting, chestpain, or any unexpected problems, contact your Primary Care Provider. Call [facility] ([phone]) or report to the closest Emergency Room. Call 911 if necessary. 01/26/23 1110 <Electronically signed by Ranulfo Montoya MD> Cosigner Signature (if applicable): CC: Dr. Rere Aguiar MD ~ Signed [facility] Work Phone: Discharge summary Author Dr. Rodriguez [facility] March 18, 2023 11:07am Note Date/Time March 18, 2023 10: 02am [facility] Medical Records Department [address] [place] [address] Emergency Department Summary 03/18/23 MR#: [id number] Acct: [id number] Name: XIANG WEST Rep #:[id number] : 1965 57 From: Sunday Rodriguez MD PCP: Dr. Rere Aguiar MD Status:REG ER Location: ED HPI History of Present Illness Chief Complaint: Lower Extremity Injury Narrative Narrative: 57-year-old male past medical history of gout, presents with right foot pain/pain in his toes for the last 2 weeks. He denies other injuries. He thinks he might be fractured however and is requesting an x-ray. He denies any fevers or chills or injury to his foot. States has been hurting him over the last few weeks and getting worse. It is mainly his fourth and fifth digits. PFSH PFS Medical History Cataract Gout Home Medications NK 03/18/23 [History Last Taken Unknown] Allergy/AdvReac Type Severity Reaction Status Date / Time No Known Allergies Allergy Verified 03/18/23 09:35 Family History Mother Cancer Surgical History H/O eye surgery Social History household members: other Smoking Status: Never smoker substance use type: does not use ROS ROS ED ROS Narrative Constitutional: No fever, no chills. HEENT: No sore throat. No neck pain. No loss of vision. No rhinorrhea. Cardiovascular: No chest pain. No palpitations. No pedal edema. Respiratory: No cough, no shortness of breath. Abdominal: No abdominal pain. No nausea. No vomiting. Genitourinary: No dysuria. No hematuria. Musculoskeletal: No myalgias. Right foot pain, right toe pain, mainly is #4 and5. Neurologic: No headaches. No dizziness. No lightheadedness. Skin: No rash. No change in color. Psychiatric: No depression. No anxiety. EXAM Physical Exam Narrative Exam Narrative: Afebrile. Vital signs noted. HEENT: Normocephalic. Atraumatic. PERRL, EOMI. Neck soft and supple. No pointtenderness or step off. Cardiovascular: Regular rate and rhythm. No murmurs, rubs, or gallops appreciated. Respiratory: No tachypnea. Lungs clear to auscultation bilaterally. Gastrointestinal: Abdomen soft, nontender, with normoactive bowel sounds. No rebound or guarding. Neurological: Awake. Alert. Nonfocal, nonlateralizing. Skin: No rash. Normal color. No pallor. Musculoskeletal: No pedal edema. Full range of motion extremities. Mild tenderness at base of fourth and fifth digits. No overt swelling. Palpable dorsalis pedis pulse. Const Vital Signs: 03/18/23 09:33 Temperature 97.6 F L Temperature Source Temporal Pulse Rate 88 Respiratory Rate 14 Blood Pressure 152/87 H Blood Pressure Mean 108 Pulse Ox 100 Oxygen Delivery Method Room Air MDM MDM MDM Narrative Medical decision making narrative: I reviewed the patient's prior records, mainly his ED visits. He has been seen for knee pain and effusion previously at the beginning of the month. I do not feel that this is a gouty exacerbation as it is mainly in the toes. X-rays willbe obtained of the foot and 3 views. Upon my independent interpretation, there is an oblique fracture of the fifth metatarsal bone. In review of the radiologyreport, this confirms that there is a nondisplaced fracture of the mid and distal portion of the fifth metatarsal. At this point in time, he was placed neymar postoperative shoe, and will follow-up with podiatry. He will continue ice and elevation at home and [id number] analgesics. He has been walking on this for 2 weeks but once again denies any known injury. Initially, he stated that he just wanted to take home the postoperative shoe and not have it applied here in the emergency department. Disposition is discharged home in stable condition. Radiography Diagnostic Testing: Clinical Impression(s) from Imaging Studies Foot X-Ray 03/18/23 10:11 IMPRESSION: Nondisplaced oblique fracture of the mid and distal portion of the fifth metatarsal. Electronically Signed: Americo Lanier MD at 10:50 EDT , Discharge Plan Triage Chief Complaint: Lower Extremity Injury ED Provider: Sunday Rodriguez Dx/Rx/DC Orders Clinical Impression: Metatarsal fracture, Toe pain Instructions: ED Fracture, Foot Prescriptions: No Action NK Primary Care Provider: Rere Aguiar Referrals: Rere Aguiar MD [Primary Care Provider] - Mauricio Stevens DPM [Med Staff - Active Staff] - As soon as possible Disposition Disposition: Home, Self Care What to do if you have Problems For any increased pain, shortness of breath, bleeding, nausea or vomiting, chestpain, or any unexpected problems, contact your Primary Care Provider. Call [facility] ([phone]) or report to the closest Emergency Room. Call 911 if necessary. 03/18/23 1107 <Electronically signed by Sunday Rodriguez MD> Cosigner Signature (if applicable): CC: Dr. Rere Aguiar MD ~ Signed [facility] Work Phone: Discharge summary Author Dr. Isaac [facility] May 15, 2023 7:39am Note Date/Time May 15, 2023 7:12 am [facility] Medical Records Department [address] [place] [address] Emergency Department Summary 05/15/23 MR#: [id number] Acct: [id number] Name: XIANG WEST Rep #:[id number] : 1965 57 From: Kota Pendleton PCP: Dr. Rere Aguiar MD Status:REG ER Location: ED HPI History of Present Illness Chief Complaint: Upper Extremity Injury [facility] Medical History Cataract Gout Home Medications prednisone 20 mg tablet 40 mg PO DAILY 10 days #20 tabs 04/21/23 [Rx Last Taken Unknown] hydrocodone-acetaminophen 5-325mg 5mg-325mg 1 tab PO Q4H PRN PRN Pain 2 days #4 TABLETS 04/28/23 [Rx Last Taken Unknown] meloxicam 7.5 mg tablet 7.5 mg PO DAILY #20 tabs 04/28/23 [Rx Last Taken Unknown] prednisone 20 mg tablet 40 mg PO DAILY 7 days #14 tabs 05/06/23 [Rx Last Taken Unknown] prednisone 20 mg tablet 40 mg PO DAILY #10 tabs 05/15/23 [Rx Last Taken Unknown] Allergy/AdvReac Type Severity Reaction Status Date / Time No Known Allergies Allergy Verified 05/15/23 06:32 Family History Mother Cancer Surgical History H/O eye surgery Social History household members: other Smoking Status: Never smoker substance use type: does not use EXAM Physical Exam Const Vital Signs: 05/15/23 06:33 Temperature 97 F L Temperature Source Temporal Pulse Rate 109 H Respiratory Rate 16 Blood Pressure 160/103 H Blood Pressure Mean 122 Pulse Ox 99 MDM MDM MDM Narrative Medical decision making narrative: HISTORY OF PRESENT ILLNESS: 57-year-old male here for left hand swelling. Patient states he has had 3 weeksof left fifth digit pain and swelling. States is responded to prednisone. States recently started allopurinol but has not had any effect. States he has ahistory of gouty arthritis diagnosed by arthrocentesis. Denies any trauma. Denies any fever. Denies a history of diabetes. Denies any numbness tingling loss sensation REVIEW OF SYSTEMS: Pertinent positives: Hand pain Pertinent negatives: Numbness tingling loss sensation PHYSICAL EXAM: Nursing triage notes reviewed, Vital signs reviewed Constitutional: please see mdm Extremities: No edema, no obvious deformity, slight swelling over the middle IP joint of the fifth digit of the left hand, no obvious fusiform swelling, no painover flexor tendons, the finger is held neutral and not in flexion Neuro: Intact 5/5 strength with ok sign (median), intact finger abduction (ulnar) intact wrist extension (radial n). Intact sensation in the radial, ulnar, and median nerve distributions. Skin: No rash or lesions noted, no crepitus, no bullae, pain is on reports exam. MEDICAL DECISION MAKING: Chief Complaint: Hand pain External records reviewed: Multiple recent ED visits for similar Factors affecting care: History of gout Social determinants of health: Denies drug use History obtained from others: None Consults: None ALL IMAGES (IF OBTAINED) HAVE BEEN PERSONALLY REVIEWED AND INTERPRETED BY MYSELF. [facility] Narrative: I considered the following differential diagnosis: Septic arthritis, fracture-dislocation, gouty arthritis, tenosynovitis The patient's presentation is clinically most consistent with gouty arthritis. There is no trauma to suggest fracture dislocation. The patient's presentation is not consistent with septic arthritis or flexor tenosynovitis. In addition tothis there is no obvious area to perform arthrocentesis. I discussed risk and benefits of arthrocentesis. The patient I agreed the risk were higher than benefit at this time given lack of swelling or lack of an appropriate target andrisk of damaging surrounding structures, bleeding and introducing infection. I gave the patient prednisone here in for 5 days. I gave him rheumatology follow-up. The patient and/or family, caregivers express understanding. The patient and/orfamily, caregivers agrees with the plan. Total critical care time today provided was at least 0 minutes. This excludes separately billable procedures. Critical care time (if documented) is secondary to the patient having high probability of clinically significant/life threatening deterioration in the patient's condition which required my urgent intervention. Shared decision making: I will have a discussion with the patient and or visitors regarding risk/benefits of further testing or admission. They will be made aware of of the risk/benefits inherent in this decision they will be given the opportunity to voice understanding. Discharge Plan Triage Chief Complaint: Upper Extremity Injury ED Provider: Kota Isaac Dx/Rx/DC Orders Clinical Impression: Gout Instructions: ED Gout Prescriptions: New prednisone 20 mg tablet 40 mg PO DAILY Qty: 10 0RF No Action prednisone 20 mg tablet 40 mg PO DAILY 10 Days Qty: 20 0RF meloxicam 7.5 mg tablet 7.5 mg PO DAILY Qty: 20 0RF hydrocodone-acetaminophen [hydrocodone-acetaminophen] 5-325 mg tablet 1 tab PO Q4H PRN PRN (Reason: Pain) 2 Days Qty: 4 0RF prednisone 20 mg tablet 40 mg PO DAILY 7 Days Qty: 14 0RF Primary Care Provider: Rere Aguiar Referrals: Rere Aguiar MD [Primary Care Provider] - Ryanne Dumont MD [Med Staff - Head Rigger] - Activity Restrictions/Additional Instructions: Thank you for trusting us with your care today! Please take Tylenol (2 pills, 650 mg), ibuprofen (2 pills, 400 mg) every 6 hoursas needed for pain and fever control. Please take prednisone as prescribed. Please return to the emergency department if your symptoms change or worsen. Please follow with your primary care physician for further outpatient evaluationand management. Disposition Disposition: Home, Self Care What to do if you have Problems For any increased pain, shortness of breath, bleeding, nausea or vomiting, chestpain, or any unexpected problems, contact your Primary Care Provider. Call [facility] ([phone]) or report to the closest Emergency Room. Call 911 if necessary. 05/15/23 0739 <Electronically signed by Kota Isaac DO> Cosigner Signature (if applicable): CC: Dr. Rere Aguiar MD ~ Signed [facility] Work Phone: Discharge summary Author Mayank Kent [facility] June 08, 2023 9:29am Note Date/Time June 08, 2023 9:29 am [facility] Medical Records Department [address] [place] [address] Emergency Department Summary 06/08/23 MR#: [id number] Acct: [id number] Name: XIANG WEST Rep #:[id number] : 1965 58 From: Mayank Almaguer PCP: Dr. Rere Aguiar MD Status:PRE ER Location: ED HPI History of Present Illness Chief Complaint: Other, Pain/Inj Informant: patient Narrative Narrative: Increased swelling pain left digits 3 through 5 the last 2 days. History of similar states multiple times in the last 6 weeks last time 2 weeks ago seen in ED. Symptoms improved with prednisone. Denies fevers or chills. Previously had had pain in his lower extremities ankles and knees he states he seen rheumatology once however did not like the experience. Did not follow back up. He is trying to get in with [facility] rheumatology call last week and he will try again. No family history of rheumatoid arthritis. He does work both hands, denies any specific injuries. Prior similar symptoms: Yes PFSH PFSH Medical History Cataract Gout Home Medications prednisone 20 mg tablet 40 mg (2 x 20 mg) PO DAILY 10 days #20 tabs 04/21/23 [Rx Last Taken Unknown] hydrocodone-acetaminophen 5-325mg 5mg-325mg 1 tab PO Q4H PRN PRN Pain 2 days #4 TABLETS 04/28/23 [Rx Last Taken Unknown] meloxicam 7.5 mg tablet 7.5 mg PO DAILY #20 tabs 04/28/23 [Rx Last Taken Unknown] prednisone 20 mg tablet 40 mg (2 x 20 mg) PO DAILY 7 days #14 tabs 05/06/23 [Rx Last Taken Unknown] prednisone 20 mg tablet 40 mg (2 x 20 mg) PO DAILY #10 tabs 05/15/23 [Rx Last Taken Unknown] prednisone 20 mg tablet 60 mg (3 x 20 mg) PO DAILY #18 TABLETS 06/08/23 [Rx Last Taken Unknown] Allergy/AdvReac Type Severity Reaction Status Date / Time No Known Allergies Allergy Verified 06/08/23 09:11 Family History Mother Cancer Surgical History H/O eye surgery Social History household members: other Smoking Status: Never smoker substance use type: does not use ROS ROS ED Constitutional Constitutional ED: Denies chills, fever(s) or sweats Eyes Eyes: Denies change in vision ENT ENT ED: Denies dysphagia or sore throat Cardiovascular Cardiovascular: Denies chest pain, leg edema, palpitations or racing heartbeat Respiratory/Chest Respiratory/Chest: Denies cough, dyspnea or dyspnea on exertion Gastrointestinal Gastrointestinal: Denies abdominal pain, diarrhea, nausea or vomiting Genitourinary Genitourinary ED: Denies dysuria, hematuria or urinary frequency Musculoskeletal Musculoskeletal: Reports arthralgias and extremity pain; Denies back pain or neck pain Integumentary Denies rash or wounds Neurologic Neurologic: Denies headache(s), paresthesias or weakness EXAM Physical Exam Const Vital Signs: 06/08/23 09:12 Temperature 97 F L Temperature Source Temporal Pulse Rate 107 H Respiratory Rate 18 Blood Pressure 173/93 H Blood Pressure Mean 119 Pulse Ox 97 Oxygen Delivery Method Room Air Positive well nourished and well developed General Appearance ED: well developed and NAD HEENT Reports moist mucous membranes normocephalic and atraumatic Eyes PERRL, EOMs intact bilaterally and conjunctivae normal General Eye ED: Yes normal appearance of both eyes Neck no lymphadenopathy and supple General: Negative for tenderness Chest Wall Chest: Negative for tenderness Resp normal respiratory effort and normal air movement Effort and Inspection: symmetric chest movement; Negative for respiratory distress Cardio regular rate, regular rhythm and no murmurs Peripheral Pulses: pulses 2+ throughout GI normal to inspection, nondistended, normoactive bowel sounds and non-tender Palpation: Negative for guarding or rebound tenderness present Back/Spine no CVA tenderness and no thoracic nor lumbar tenderness Extremity Extremity Narrative: Left upper extremity no elbow or wrist tenderness. There is swelling to digits 3-5 no erythema pain with movement. Skin intact. No drainage. Cap refill lessthan 3 seconds. General Extremety ED: Negative for edema or tenderness General Extremity: Negative for edema Neuro oriented x3 and no sensory deficits noted Sensorium / Orientation: awake and alert Skin no rashes or lesions noted and no wounds MDM MDM MDM Narrative Medical decision making narrative: Interventions / MDM: Differential diagnosis: Arthralgia Diagnosis considered but do not suspect: Septic joint, no erythema or warmth. My EKG interpretation: N/A Imaging independently reviewed and interpreted by myself: N/A External documents reviewed: N/A Test considered but not ordered:N/A ED course: Patient nontoxic similar episodes in the past relieved with prednisone. Nontoxic. There is no warmth erythema concerns for septic joint. At previous lower extremity joint pains from history. Nonspecific arthralgia atthis point. He is restarted on prednisone. He states the call [facility] again to try to get appointment for outpatient evaluation and further work-up. All questions were answered. Re-evaluation: stable Disposition discussed with patient/family/significant other: Patient Case discussed with consulting clinician: N/A This note was generated with [employer] dictation software. It may contain incorrectwords, spelling, and punctuation that were not noted in checking the note beforesigning. Discharge Plan Triage Chief Complaint: Other, Pain/Inj ED Provider: Mayank Kent Dx/Rx/DC Orders Clinical Impression: Left hand pain, Arthralgia Instructions: ED Arthralgia Prescriptions: New prednisone 20 mg tablet 60 mg PO DAILY Qty: 18 0RF No Action prednisone 20 mg tablet 40 mg PO DAILY 10 Days Qty: 20 0RF meloxicam 7.5 mg tablet 7.5 mg PO DAILY Qty: 20 0RF hydrocodone-acetaminophen [hydrocodone-acetaminophen] 5-325 mg tablet 1 tab PO Q4H PRN PRN (Reason: Pain) 2 Days Qty: 4 0RF prednisone 20 mg tablet 40 mg PO DAILY 7 Days Qty: 14 0RF prednisone 20 mg tablet 40 mg PO DAILY Qty: 10 0RF Primary Care Provider: Rere Aguiar Referrals: Rere Aguiar MD [Primary Care Provider] - 3-5 Days Activity Restrictions/Additional Instructions: Follow-up with your doctor and work on your appointment with rheumatology at [facility]. Take the steroid as prescribed. Next dose tomorrow. Disposition Disposition: Home, Self Care What to do if you have Problems For any increased pain, shortness of breath, bleeding, nausea or vomiting, chestpain, or any unexpected problems, contact your Primary Care Provider. Call [facility] ([phone]) or report to the closest Emergency Room. Call 911 if necessary. 06/08/23928 <Electronically signed by Mayank Almaguer> Cosigner Signature (if applicable): CC: Dr. Rere Aguiar MD ~ Signed [facility] Work Phone: Discharge summary Author Mayank Kent [facility] August 03, 2023 8:50am Note Date/Time August 03, 2023 8:50am [facility] Medical Records Department [address] [place] [address] Emergency Department Summary 08/03/23 MR#: [id number] Acct: [id number] Name: XIANG WEST Rep #:[id number] : 1965 58 From: Mayank Almaguer PCP: Dr. Rere Aguiar MD Status:DEP ER Location: ED HPI History of Present Illness Chief Complaint: Upper Extremity Injury Informant: patient Narrative Narrative: Presents with current nontraumatic swelling right middle finger. Last time few months ago. Has issues with left hand and knees in the past. He states he had a referral to [facility] however his car broke down and missed appointment. He is making another appointment. No fevers. No he has a ring on his right middle finger, he states has been there for 10 years. Denies paresthesias. Pain worse with movement improved with steroids in the past. Prior similar symptoms: Yes PFSH [facility] Medical History Cataract Gout Home Medications prednisone 20 mg tablet 40 mg (2 x 20 mg) PO DAILY 10 days #20 tabs 04/21/23 [Rx Last Taken Unknown] hydrocodone-acetaminophen 5-325mg 5mg-325mg 1 tab PO Q4H PRN PRN Pain 2 days #4 TABLETS 04/28/23 [Rx Last Taken Unknown] meloxicam 7.5 mg tablet 7.5 mg PO DAILY #20 tabs 04/28/23 [Rx Last Taken Unknown] prednisone 20 mg tablet 40 mg (2 x 20 mg) PO DAILY 7 days #14 tabs 05/06/23 [Rx Last Taken Unknown] prednisone 20 mg tablet 40 mg (2 x 20 mg) PO DAILY #10 tabs 05/15/23 [Rx Last Taken Unknown] prednisone 20 mg tablet 60 mg (3 x 20 mg) PO DAILY #18 TABLETS 06/08/23 [Rx Last Taken Unknown] prednisone 50 mg tablet 50 mg PO DAILY #5 tabs 07/29/23 [Rx Last Taken Unknown] prednisone 20 mg tablet 60 mg (3 x 20 mg) PO DAILY #18 TABLETS 08/03/23 [Rx Last Taken Unknown] Allergy/AdvReac Type Severity Reaction Status Date / Time No Known Allergies Allergy Verified 08/03/23 07:57 Family History Mother Cancer Surgical History H/O eye surgery Social History household members: other Smoking Status: Never smoker substance use type: does not use ROS ROS ED Constitutional Constitutional ED: Denies chills, fever(s) or sweats Eyes Eyes: Denies change in vision ENT ENT ED: Denies dysphagia or sore throat Cardiovascular Cardiovascular: Denies chest pain, leg edema, palpitations or racing heartbeat Respiratory/Chest Respiratory/Chest: Denies cough, dyspnea or dyspnea on exertion Gastrointestinal Gastrointestinal: Denies abdominal pain, diarrhea, nausea or vomiting Genitourinary Genitourinary ED: Denies dysuria, hematuria or urinary frequency Musculoskeletal Musculoskeletal: Reports extremity pain; Denies back pain or neck pain Integumentary Denies rash or wounds Neurologic Neurologic: Denies headache(s), paresthesias or weakness EXAM Physical Exam Const Vital Signs: 08/03/23 07:54 Temperature 97.3 F L Temperature Source Temporal Pulse Rate 122 H Respiratory Rate 18 Blood Pressure 142/96 H Blood Pressure Mean 111 Pulse Ox 100 Oxygen Delivery Method Room Air Positive well nourished and well developed General Appearance ED: well developed and NAD HEENT Reports moist mucous membranes normocephalic and atraumatic Eyes PERRL, EOMs intact bilaterally and conjunctivae normal General Eye ED: Yes normal appearance of both eyes Neck no lymphadenopathy and supple General: Negative for tenderness Chest Wall Chest: Negative for tenderness Resp normal respiratory effort and normal air movement Effort and Inspection: symmetric chest movement; Negative for respiratory distress Cardio regular rhythm and no murmurs Rate: tachycardic Peripheral Pulses: pulses 2+ throughout GI normal to inspection, nondistended, normoactive bowel sounds and non-tender Palpation: Negative for guarding or rebound tenderness present Back/Spine no CVA tenderness and no thoracic nor lumbar tenderness Extremity Extremity Narrative: Right upper extremity: Hand with swelling on the middle finger there is a ring on the proximal phalanx. Cap refills intact. Pain with movement the PIP joint. No fluctuance no drainage. General Extremety ED: Negative for edema or tenderness General Extremity: Negative for edema Neuro oriented x3 and no sensory deficits noted Sensorium / Orientation: awake and alert Skin no rashes or lesions noted and no wounds MDM MDM MDM Narrative Medical decision making narrative: Interventions / MDM: Differential diagnosis: Arthralgia Diagnosis considered but do not suspect: Septic joint, however chronic recurringsymptoms. My EKG interpretation: N/A Imaging independently reviewed and interpreted by myself: N/A External documents reviewed: N/A Test considered but not ordered:N/A ED course: Patient recurrent swelling improved with steroids in the past he started on prednisone. Discussed with patient with his ring proximal swollen joint he has good cap refills recommended removal of this ring to prevent tourniquet if swelling worsens. This was prepped, however upon presentation to remove he states he did not want this done as it got better in the past. He understands the risks for leaving on and finger worsening later. Prescription for additional 6 days of steroids sent to his pharmacy. He will call for follow-up as an outpatient as planned. Re-evaluation: stable Disposition discussed with patient/family/significant other: Patient Case discussed with consulting clinician: N/A This note was generated with [employer] dictation software. It may contain incorrectwords, spelling, and punctuation that were not noted in checking the note beforesigning. Discharge Plan Triage Chief Complaint: Upper Extremity Injury Other Complaint: Lower Extremity Injury ED Provider: Mayank Kent Dx/Rx/DC Orders Clinical Impression: Arthralgia, Finger joint swelling Instructions: ED Arthralgia Prescriptions: New prednisone 20 mg tablet 60 mg PO DAILY Qty: 18 0RF No Action prednisone 20 mg tablet 40 mg PO DAILY 10 Days Qty: 20 0RF meloxicam 7.5 mg tablet 7.5 mg PO DAILY Qty: 20 0RF hydrocodone-acetaminophen [hydrocodone-acetaminophen] 5-325 mg tablet 1 tab PO Q4H PRN PRN (Reason: Pain) 2 Days Qty: 4 0RF prednisone 20 mg tablet 40 mg PO DAILY 7 Days Qty: 14 0RF prednisone 20 mg tablet 40 mg PO DAILY Qty: 10 0RF prednisone 20 mg tablet 60 mg PO DAILY Qty: 18 0RF prednisone 50 mg tablet 50 mg PO DAILY Qty: 5 0RF Stand Alone Forms: ED Work / School Excuse Primary Care Provider: Rere Aguiar Referrals: Rere Aguiar MD [Primary Care Provider] - Activity Restrictions/Additional Instructions: Recurrent swelling right middle finger. Take steroids as prescribed. You declined attempt to remove your ring from your finger. You understand the risks. Return if worsening symptoms. Disposition Disposition: Home, Self Care What to do if you have Problems For any increased pain, shortness of breath, bleeding, nausea or vomiting, chestpain, or any unexpected problems, contact your Primary Care Provider. Call [facility] ([phone]) or report to the closest Emergency Room. Call 911 if necessary. 08/03/23 0850 <Electronically signed by Mayank Almaguer> Cosigner Signature (if applicable): CC: Dr. Rere Aguiar MD ~ Signed [facility] Work Phone: Evaluation noteNo assessment information available [facility] Work Phone: Evaluation note* Diagnosis Pain- Primary Generalized [facility] Diagnosis Onset Date Resolution Status Debility acute Weakness acute [facility] Work Phone: Evaluation note* Diagnosis Joint swelling- Primary Effusion of joint, site unspecified Vitamin D deficiency Unspecified vitamin D deficiency [facility] Diagnosis Chronic pain of both knees- Primary Hyperuricemia Other abnormal blood chemistry [facility] Diagnosis Pain in joint, multiple sites Joint swelling Effusion of joint, site unspecified Chronic pain of both ankles Bilateral hand pain Pain in limb [facility] Diagnosis Hyperuricemia- Primary Other abnormal blood chemistry [facility]* Diagnosis Chronic pain of both knees Hyperuricemia Other abnormal blood chemistry [facility] Diagnosis Hyperuricemia- Primary Other abnormal blood chemistry Joint swelling Effusion of joint, site unspecified Vitamin D deficiency Unspecified vitamin D deficiency Pain in joint, multiple sites [facility]* Diagnosis Neck mass- Primary Swelling, mass, or lump in head and neck [facility] Diagnosis Gout with manifestations- Primary Gout with other specified manifestations Vitamin D deficiency Unspecified vitamin D deficiency Chronic pain of both ankles Chronic pain of both knees documented in this encounter [facility] note* Diagnosis Onset Date Resolution Status Debility resolved Weakness resolved [facility] Work Phone: Evaluation note* Diagnosis Hyperuricemia Other abnormal blood chemistry documented in this encounter [facility] note* Diagnosis Neck mass Swelling, mass, or lump in head and neck [facility] Diagnosis Gout with manifestations- Primary Gout with other specified manifestations Chronic pain of both knees Vitamin D deficiency Unspecified vitamin D deficiency Hyperuricemia Other abnormal blood chemistry documented in this encounter [facility] note* Diagnosis Lipoma of right upper extremity- Primary Lipoma of other specified sites [facility]* Diagnosis Right shoulder pain, unspecified chronicity- Primary [facility]* Diagnosis Lipoma, unspecified site- Primary [facility]* Diagnosis Right shoulder pain, unspecified chronicity documented in this encounter [facility] note* Diagnosis Intramuscular lipoma- Primary Lipoma of other specified sites Lipoma of right upper extremity Lipoma of other specified sites Localized swelling, mass and lump, trunk [facility] Additional Instructions Gauze dressing on the affected area with antibiotic ointment like Neosporin with each dressing change. Use caution, wound is still healing and could split open if enough stresses placed on it.[facility] Work Phone: Hospital Discharge instructions Additional Instructions Motrin and [place] and for pain. Prednisone 40 mg a day for the next 7 days starting tomorrow. Follow-up with your doctor if not improving.[facility] Work Phone: Hospital Discharge instructions Additional Instructions Elevate hand to decrease pain and swelling Follow-up with your doctor if not improving. Prednisone 40 mg once a day for the next 7 days starting tomorrow. Stop the meloxicam.[facility] Work Phone: Hospital Discharge instructions Additional Instructions You need to call orthopedic surgeon or lubricating specialist. Local lubricating specialist is Dr. Tim Pearl MD. orthopedic surgeon on-call is Dr. Andrade. He may also use the [facility] which has orthopedic surgeons, lubricating specialist, multiple specialist for joint and hand pain, based out of the [facility]. Repeat visits to the ER for orthopedics, joint pain, joint discomfort, and rheumatology complaints needs to be seeing a specialist, we cannot treat chronic pain from the ER. Start recording your blood pressure at home, record your blood pressure only once or twice a day. Record this for 1 to 2 weeks, follow-up with your PCP, to see if your blood pressure is consistently over 140/90 and you may need to start taking blood pressure medication as well. This is [facility] Discharge instructions Additional Instructions Thank you for trusting us with your care today! Please take Tylenol (2 pills, 650 mg), ibuprofen (2 pills, 400 mg) every 6 hours as needed for pain and fever control. Please take prednisone as prescribed. Please return to the emergency department if your symptoms change or worsen. Please follow with your primary care physician for further outpatient evaluation and management.[facility] Work Phone: Hospital Discharge instructions Additional Instructions Follow-up with your doctor and work on your appointment with rheumatology at [facility]. Take the steroid as prescribed. Next dose tomorrow.[facility] Work Phone: Hospital Discharge instructions Additional Instructions Take prednisone until finished. You need to follow-up with specialist.[facility] Work Phone: Hospital Discharge instructions Additional Instructions Recurrent swelling right middle finger. Take steroids as prescribed. You declined attempt to remove your ring from your finger. You understand the risks. Return if worsening symptoms.[facility] Work Phone: Reason for referral (narrative)* Diagnostic Procedure Only (Routine) - Closed Specialty Diagnoses / Procedures Referred By Ilir t Referred To Contact US IMAGING Diagnoses Pain in joint, multiple sites Joint swelling Bilateral hand pain Procedures US HAND/WRIST SYNOVIAL SCREEN LEFT US COMPL JOINT R-T W/IMAGE DOCUMENTATION Rere Valentino, ASSISTANT EDITOR.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 [address] [facility] [place] [address] [place] [address] Referral ID Status Reason Start Date Expiration Date V isits Requested Visits Authorized [id number] Closed Auto-Generate d Referral OON/Self Pay Override 12/27/2023 01/25/2025 1 1 * Diagnostic Procedure Only (Routine) - Closed Specialty Diagnoses / Procedures Referred By Contac t Referred To Contact US IMAGING Diagnoses Pain in joint, multiple sites Joint swelling Bilateral hand pain Procedures US HAND/WRIST SYNOVIAL SCREEN RIGHT US COMPL JOINT R-T W/IMAGE DOCUMENTATION Rere Valentino ASSISTANT EDITOR.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 [address] [place] [address] [place] [address] Referral ID Status Reason Start Date Expiration Date V isits Requested Visits Authorized [id number] Closed Auto-Generate d Referral 12/27/2023 01/25/2025 1 1 * Diagnostic Procedure Only (Routine) - Closed Specialty Diagnoses / Procedures Referred By Contac t Referred To Contact US IMAGING Diagnoses Pain in joint, multiple sites Joint swelling Chronic pain of both ankles Procedures US FOOT/ANKLE SYNOVIAL SCREEN LEFT US LMTD JOINT/OTH NONVASC XTR STRUX R-T W/IMG Rere Valentino, ASSISTANT EDITOR.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 [address] [place] [address] [place] [address] Referral ID Status Reason Start Date Expiration Date V isits Requested Visits Authorized [id number] Closed Auto-Generate d Referral 12/27/2023 01/25/2025 1 1 * Diagnostic Procedure Only (Routine) - Closed Specialty Diagnoses / Procedures Referred By Contac t Referred To Contact US IMAGING Diagnoses Pain in joint, multiple sites Joint swelling Chronic pain of both ankles Procedures US FOOT/ANKLE SYNOVIAL SCREEN RIGHT US COMPL JOINT R-T W/IMAGE DOCUMENTATION Rere Valentino, ASSISTANT EDITOR.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 [address] [place] [address] [place] [address] Referral ID Status Reason Start Date Expiration Date V isits Requested Visits Authorized [id number] Closed Auto-Generate d Referral 12/27/2023 01/25/2025 [address] [facility] for referral (narrative)* Diagnostic Procedure Only (Routine) - Pending Review Specialty Diagnoses / Procedures Referred By Contac t Referred To Contact XR IMAGING Diagnoses Right shoulder pain, unspecified chronicity Procedures XR SHOULDER GENERAL 3V OR MORE AP/TRUE AP/OTHER RIGHT RADEX SHOULDER COMPLETE MINIMUM 2 VIEWS Maci Dorsey DO [address] [place] [address] [place] [address] Referral ID Status Reason Start Date Expiration Date Visits Requested Visits Authorized [id number] Pending Review Auto-Generat ed Referral 05/02/2024 06/01/2025 1 1 [facility] for visit Narrative* Diagnostic Procedure Only (Routine) - Closed Specialty Diagnoses / Procedures Referred By Contac t Referred To Contact US IMAGING Diagnoses Pain in joint, multiple sites Joint swelling Bilateral hand pain Procedures US HAND/WRIST SYNOVIAL SCREEN LEFT US COMPL JOINT R-T W/IMAGE DOCUMENTATION Rere Valentino APRN.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 [address] [place] [address] [place] [address] Referral ID Status Reason Start Date Expiration Date V isits Requested Visits Authorized [id number] Closed Auto-Generate d Referral OON/Self Pay Override 12/27/2023 01/25/2025 1 1 [facility] for visit Narrative* Diagnostic Procedure Only (Routine) - Closed Specialty Diagnoses / Procedures Referred By Contac t Referred To Contact XR IMAGING Diagnoses Right shoulder pain, unspecified chronicity Procedures XR SHOULDER GENERAL 3V OR MORE AP/TRUE AP/OTHER RIGHT RADEX SHOULDER COMPLETE MINIMUM 2 VIEWS Maci Dorsey DO [address] [place] [address] [place] [address] Referral ID Status Reason Start Date Expiration Date V isits Requested Visits Authorized [id number] Closed Auto-Generate d Referral 05/02/2024 06/01/2025 1 1 [facility] Summary Purpose Family History Relationship Condition Age at Onset Recorded Date/T mic mother Malignant neoplasm Unknown Advance Directives Advance Directive Response Recorded Date/ Time Advance Directives No December 29, 2017 2:23am Living Will No February 23, 2022 1:39pm Power of Motor Vehicle Inspector No February 23 1:39pm Advance Directive Response Recorded Date/ Time Advance Directives No December 29, 2017 2:23am Living Will No March 14, 2022 3:57am Power of Motor Vehicle Inspector No March 14 3:57am Advance Directive Response Recorded Date/ Time Advance Directives No December 29, 2017 2:23am Living Will No March 14, 2022 3:58pm Power of Motor Vehicle Inspector No March 14 3:58pm Advance Directive Response Recorded Date/ Time Advance Directives No December 29, 2017 2:23am Living Will No April 01, 2022 8: 13pm Power of Motor Vehicle Inspector No April 01, 2022 8:13pm Advance Directive Response Recorded Date/ Time Advance Directives No December 29, 2017 2:23am Living Will No April 04, 2022 5: 21pm Power of Motor Vehicle Inspector No April 04, 2022 5:21pm Advance Directive Response Recorded Date/ Time Advance Directives No December 29, 2017 2:23am Living Will No August 29 11:08am Power of Motor Vehicle Inspector No August 29 022 11:08am Advance Directive Response Recorded Date/ Time Advance Directives No December 29, 2017 2:23am Living Will No September 15 9:32am Power of Motor Vehicle Inspector No September 15, 2022 9:32am Advance Directive Response Recorded Date/ Time Advance Directives No December 29, 2017 1:23am Living Will No October 14, 2 022 2:19am Power of Motor Vehicle Inspector No October 14, 2022 2:19am Advance Directive Response Recorded Date/ Time Advance Directives No December 29, 2017 1:23am Living Will No October 27 2 022 3:03am Power of Motor Vehicle Inspector No October 27, 2022 3:03am Advance Directive Response Recorded Date/ Time Advance Directives No December 29, 2017 1:23am Living Will No November 22, 2 022 4:26pm Power of Motor Vehicle Inspector No November 22, 2022 4:26pm Advance Directive Response Recorded Date/ Time Advance Directives No December 29, 2017 1:23am Living Will No December 25 8:52am Power of Motor Vehicle Inspector No December 25, 2022 8:52am Advance Directive Response Recorded Date/ Time Advance Directives No December 29, 2017 1:23am Living Will No December 27 2:08pm Power of Motor Vehicle Inspector No December 27, 2022 2:08pm Advance Directive Response Recorded Date/ Time Advance Directives No December 29, 2017 1:23am Living Will No January 26, 2 023 10:42am Power of Motor Vehicle Inspector No January 26, 2023 10:42am Advance Directive Response Recorded Date/ Time Advance Directives No December 29, 2017 2:23am Living Will No March 01, 2023 2:23pm Power of Motor Vehicle Inspector No March 01 2:23pm Advance Directive Response Recorded Date/ Time Advance Directives No December 29, 2017 2:23am Living Will No March 18, 2023 9:51am Power of Motor Vehicle Inspector No March 18 9:51am Advance Directive Response Recorded Date/ Time Advance Directives No December 29, 2017 2:23am Living Will No May 06, 2023 8 :59pm Power of Motor Vehicle Inspector No May 06, 2023 8:59pm Advance Directive Response Recorded Date/ Time Advance Directives No December 29, 2017 2:23am Living Will No April 28, 2023 3 :20pm Power of Motor Vehicle Inspector No April 28, 2023 3:20pm Advance Directive Response Recorded Date/ Time Advance Directives No December 29, 2017 2:23am Living Will No May 15, 2023 6:35am Power of Motor Vehicle Inspector No May 15 6:35am Advance Directive Response Recorded Date/ Time Advance Directives No December 29, 2017 2:23am Living Will No June 08, 2023 9:17am Power of Motor Vehicle Inspector No June 08 9:17am Advance Directive Response Recorded Date/ Time Advance Directives No December 29, 2017 2:23am Living Will No July 29 1:30pm Power of Motor Vehicle Inspector No July 29 023 1:30pm Advance Directive Response Recorded Date/ Time Advance Directives No December 29, 2017 2:23am Living Will No August 03 023 8:10am Power of Motor Vehicle Inspector No August 03, 2023 8:10am Advance Directive Response Recorded Date/ Time Advance Directives No December 29, 2017 1:23am Living Will No November 26, 023 5:47am Power of Motor Vehicle Inspector No November 26, 2023 5:47am Advance Directive Response Recorded Date/ Time Advance Directives No December 29, 2017 1:23am Living Will No November 26 023 1:32pm Power of Motor Vehicle Inspector No November 26, 2023 1:32pm Advance Directive Response Recorded Date/ Time Advance Directives No December 29, 2017 2:23am Living Will No March 21, 2024 12:13pm Power of Motor Vehicle Inspector No March 21 12:13pm Chief Complaint and Reason for Visit Chief Complaint RIGHT ELBOW INJURY LUMBAR STRAIN/RX HERE CP SORE THROAT Chief Complaint RIGHT ELBOW INJURY LUMBAR STRAIN/RX HERE CP SORE THROAT r ankle Chief Complaint RIGHT ELBOW INJURY LUMBAR STRAIN/RX HERE CP SORE THROAT r ankle ABSCESS RIGHT ANKLE Chief Complaint LUMBAR STRAIN/RX HER E CP SORE THROAT r ankle ABSCESS RIGHT ANKLE back Chief Complaint LUMBAR STRAIN/RX HER E CP SORE THROAT r ankle ABSCESS RIGHT ANKLE back BACK PAIN Chief Complaint CP SORE THROAT r ankle ABSCESS RIGHT ANKLE back BACK PAIN BONE DEFORMITY OF RIGHT LOWER LEG Chief Complaint elbow pain Chief Complaint elbow pain HAND Chief Complaint elbow pain HAND LACERATION wound check Chief Complaint elbow pain HAND LACERATION wound check STITCH REMOVAL STITCHES REMOVED Chief Complaint elbow pain HAND LACERATION wound check STITCH REMOVAL STITCHES REMOVED lower extremity Chief Complaint elbow pain HAND LACERATION wound check STITCH REMOVAL STITCHES REMOVED lower extremity LEFT GREAT TOE Chief Complaint elbow pain HAND LACERATION wound check STITCH REMOVAL STITCHES REMOVED lower extremity LEFT GREAT TOE eye Chief Complaint LACERATION wound check STITCH REMOVAL STITCHES REMOVED lower extremity LEFT GREAT TOE eye PAIN Chief Complaint lower extremity LEFT GREAT TOE eye PAIN KNEE Chief Complaint lower extremity LEFT GREAT TOE eye PAIN KNEE TOE PAIN Chief Complaint PAIN KNEE TOE PAIN FINGERS SWELLING left hand edema HAND EDEMA EORDER- LAB AND XRAY- LEFT HAND pain LEFT HAND SWELLING Chief Complaint PAIN KNEE TOE PAIN FINGERS SWELLING left hand edema HAND EDEMA Chief Complaint PAIN KNEE TOE PAIN FINGERS SWELLING left hand edema HAND EDEMA EORDER- LAB AND XRAY- LEFT HAND pain LEFT HAND SWELLING NEEDS PREDNISONE Chief Complaint KNEE TOE PAIN FINGERS SWELLING left hand edema HAND EDEMA EORDER- LAB AND XRAY- LEFT HAND pain LEFT HAND SWELLING NEEDS PREDNISONE HAND SWELLING Chief Complaint FINGERS SWELLING left hand edema HAND EDEMA EORDER- LAB AND XRAY- LEFT HAND pain LEFT HAND SWELLING NEEDS PREDNISONE HAND SWELLING finger pain Chief Complaint FINGERS SWELLING left hand edema HAND EDEMA EORDER- LAB AND XRAY- LEFT HAND pain LEFT HAND SWELLING NEEDS PREDNISONE HAND SWELLING finger pain joints Chief Complaint finger pain joints WEAKNESS AND DEBILITY Chief Complaint joints WEAKNESS AND DEBILITY WEAKNESS AND DEBILITY WEAKNESS AND DEBILITY WEAKNESS AND DEBILITY Reason for Visit Debility Weakness Chief Complaint WEAKNESS AND DEBILIT Y WEAKNESS AND DEBILITY WEAKNESS AND DEBILITY WEAKNESS AND DEBILITY lower [facility] [employer]YS[employer] FINGER INJURY Reason for Visit Debility Weakness Reason for Referral Specialty Diagnoses / Procedures Referred By Ilir hall Referred To Contact CT IMAGING Diagnoses Chronic pain of both knees Hyperuricemia Procedures CT KNEE WO IVCON RIGHT CT LOWER EXTREMITY W/O CONTRAST MATERIAL Rere Valentino, ASSISTANT EDITOR.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 [address] [place] [address] [place] [address] Referral ID Status Reason Start Date Expiration Date Visits Requested Visits Authorized [id number] Additional Clinical Info Needed Auto-Generat ed Referral 01/18/2024 02/16/2025 1 1 Specialty Diagnoses / Procedures Referred By Ilir hall Referred To Contact Diagnoses Hyperuricemia Rere Valentino, ASSISTANT EDITOR.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 [address] [place] [address] Referral ID Status Reason Start Date Expiration Date V isits Requested Visits Authorized [id number] Pending Review 1 1 Referral ID Status Reason Start Date Expiration Date V isits Requested Visits Authorized [id number] Closed Clearance Not Met - Admin/Chairm an/Director Advise to Postpone/Res chedule or Not Proceed 02/04/2024 04/04/2024 1 1 Specialty Diagnoses / Procedures Referred By Ilir hall Referred To Contact MR IMAGING Diagnoses Neck mass Procedures MRI SOFT TISSUE NECK WO/W IVCON MRI ORBIT FACE & NECK W/O & W/CONTRAST MATRL Peggy Hunter MD [address] [address] [facility] [place] [address] Referral ID Status Reason Start Date Expiration Date Visits Requested Visits Authorized [id number] Pending Review Auto-Generat ed Referral 03/14/2024 04/13/2025 1 1 Specialty Diagnoses / Procedures Referred By Contac t Referred To Contact Diagnoses Chronic pain of both knees Gout with manifestations Rere Valentino, ASSISTANT EDITOR.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 [address] [place] [address] Referral ID Status Reason Start Date Expiration Date Visits Re quested Visits Authorized [id number] Closed 1 1 Referral ID Status Reason Start Date Expiration Date V isits Requested Visits Authorized [id number] Closed Auto-Generate d Referral 04/21/2024 06/06/2024 1 1 Specialty Diagnoses / Procedures Referred By Contac t Referred To Contact Orthopedics Diagnoses Lipoma of right upper extremity Procedures CONSULT TO ORTHOPAEDICS OFFICE/OUTPATIENT [facility] 60 MINUTES Peggy Hunter MD [address] [address] Pascual Perry MD [address] [place] [address] Referral ID Status Reason Start Date Expiration Date Visits Requested Visits Authorized [id number] Authorized PCP Requested Referral 04/25/2024 04/25/2025 1 1 Specialty Diagnoses / Procedures Referred By Contac t Referred To Contact MR IMAGING Diagnoses Localized swelling, mass and lump, trunk Procedures MRI CHEST WALL/RIB WO IVCON RIGHT MRI CHEST W/O CONTRAST MATERIAL Luis Miguel Rhodes MD [address] [place] [address] [facility] [place] [address] Referral ID Status Reason Start Date Expiration Date Visits Requested Visits Authorized [id number] Pending Review Auto-Generat ed Referral 05/16/2024 06/15/2025 1 1 Additional Source Comments (unrecognized sect ion and content) No Status Records FoundNo Status Records FoundNo Status Records FoundNo Status Records FoundNo Status Records Found INFORMATION SOURCE (unrecogn ized section and content) DATE CREATED AUTHOR 05/24/2018 [facility] DATE CREATED AUTHOR AUTHOR'S ORGANIZ ATION 02/10/2024 [facility] DATE CREATED AUTHOR AUTHOR'S ORGANIZ ATION [facility]/20[facility] DATE CREATED AUTHOR AUTHOR'S ORGANIZ ATION 04/26/2024 [facility] DATE CREATED AUTHOR AUTHOR'S ORGANIZ ATION 09/22/2024 [facility] Goals (unrecognized section and content) Goals may be documented in a n alternate sectionGoals may be documented in an alternate sectionGoals may be documented in an alternate sectionGoals may be documented in an alternate sectionGoals may be documented in an alternate sectionGoals may be documented in an alternate sectionGoals may be documented in an alternate sectionGoals may be documented in an alternate sectionGoals may be documented in an alternate sectionGoals may be documented in an alternate sectionGoals may be documented in an alternate sectionGoals may be documented in an alternate sectionGoals may be documented in an alternate sectionGoals may be documented in an alternate sectionGoals may be documented in an alternate sectionGoals may be documented in an alternate sectionGoals may be documented in an alternate sectionGoals may be documented in an alternate sectionGoals may be documented in an alternate sectionGoals may be documented in an alternate sectionGoals may be documented in an alternate sectionGoals may be documented in an alternate sectionGoals may be documented in an alternate sectionGoals may be documented in an alternate sectionGoals may be documented in an alternate section Care Teams (unrecognized sec tion and content) Team Status: Active Member Role Status Dates Dr. Rere Aguiar MD Family Provider Active Dr. Rere Aguiar MD Primary Care Provider Active Team Status: Inactive Member Role Status Dates Dr. Rere Aguiar MD Primary Care Provider Active Dr. Jorge Peters DO Attending Provider, Emergency P denisse Active Team Status: Inactive Member Role Status Dates Dr. Rere Aguiar MD Primary Care Provider Active Dr. Miriam Bonds MD Attending Provider, Emergency Provider Active Team Status: Inactive Member Role Status Dates Dr. Rere Aguiar MD Primary Care Provider Active Dr. Idris Capellan DO Attending Provider, Emergency P rovider Active Team Status: Inactive Member Role Status Dates Dr. Rere Aguiar MD Primary Care Provider Active Dr. Bry Baer DO Attending Provider, Emergency Pr ovider Active Team Status: Inactive Member Role Status Dates Dr. Rere Aguiar MD Primary Care Provider Active Ed Physician Provider Attending Provider, Emergency Pr ovider Active Team Status: Inactive Member Role Status Dates Dr. Rere Aguiar MD Primary Care Provider Active Dr. Ranulfo Montoya MD Attending Provider, Emergency Provider Active Team Status: Inactive Member Role Status Dates Dr. Rere Aguiar MD Primary Care Provider Active Dr. Dean Mendez MD Attending Provider, Emergency Pro vider Active Team Status: Inactive Member Role Status Dates Dr. Rere Aguiar MD Primary Care Provider Active Dr. Karel Crocker DO Emergency Provider Active Team Status: Inactive Member Role Status Dates Dr. Rere Aguiar MD Primary Care Provider Active Dr. Jorge Peters DO Emergency Provider Active Team Status: Inactive Member Role Status Dates Dr. Rere Aguiar MD Primary Care Provider Active Dr. Karel Crocker DO Attending Provider, Emergency Pro vider Active Team Status: Inactive Member Role Status Dates Dr. Rere Aguiar MD Primary Care Provider Active Dr. Ranulfo Montoya MD Emergency Provider Active Team Status: Inactive Member Role Status Dates Dr. Rere Aguiar MD Primary Care Provider Active Dr. Rei German DO Emergency Provider Active Team Status: Inactive Member Role Status Dates Dr. Rere Aguiar MD Primary Care Provider Active Dr. Rei German DO Attending Provider, Emergency Provider Active Team Status: Inactive Member Role Status Dates Dr. Rere Aguiar MD Primary Care Provider, Attendin g Provider Active Team Status: Inactive Member Role Status Dates Dr. Rere Aguiar MD Primary Care Provider Active Sunday Rodriguez MD Referring Provider, Emergency Provid er Active Team Status: Inactive Member Role Status Dates Dr. Rere Aguiar MD Primary Care Provider Active Sunday Rodriguez MD Attending Provider, Referring Provider, Emergency Provider Active Team Status: Inactive Member Role Status Dates Dr. Rere Aguiar MD Primary Care Provider Active Dr. Mauricio Ceja DO Attending Provider, Emergency Pro vider Active Team Status: Inactive Member Role Status Dates Dr. Rere Aguiar MD Primary Care Provider Active Dr. Tim Butler MD Attending Provider, Referri ng Provider Active Team Status: Inactive Member Role Status Dates Dr. Rere Aguiar MD Primary Care Provider Active Dr. Dean Mendez MD Emergency Provider Active Team Status: Inactive Member Role Status Dates Dr. Rere Aguiar MD Primary Care Provider Active Dr. Mauricio Ceja DO Emergency Provider Active Doctor Of Dental Surgery Relationship Specialty Start Date End Date DeniaRere mckeon sAhok PCP - General Family Medicine 06/05/14 Team Status: Inactive Member Role Status Dates Dr. Rere Aguiar MD Primary Care Provider Active Dr. Kota Isaac DO Emergency Provider Active Team Status: Inactive Member Role Status Dates Dr. Rere Aguiar MD Primary Care Provider Active Dr. Kota Isaac DO Attending Provider, Emergency P roasha Active Team Status: Inactive Member Role Status Dates Dr. Rere Aguiar MD Primary Care Provider Active Dr. Mayank Kent DO Emergency Provider Active Team Status: Inactive Member Role Status Dates Dr. Rere Aguiar MD Primary Care Provider Active Dr. Mayank Kent DO Attending Provider, Emergency Provide r Active Team Status: Inactive Member Role Status Dates Dr. Rere Aguiar MD Primary Care Provider Active Dr. Miriam Bonds MD Emergency Provider Active Team Status: Active Member Role Status Dates Dr. Rere Aguiar MD Primary Care Provider Active Dr. Rei German DO Emergency Provider Active Dr. Christiane Martin MD Admit Provider, Attending Prov ider Active Team Status: Active Member Role Status Dates Dr. Rere Aguiar MD Primary Care Provider Active Dr. Rei German DO Emergency Provider Active Dr. Christiane Martin MD Admit Provider, Attending Provider, Other Provider Active Team Status: Active Member Role Status Dates Dr. Rere Aguiar MD Primary Care Provider Active Dr. Rei German DO Emergency Provider Active Dr. Christiane Martin MD Admit Provider, Other Provider Active Dr. Wayne Friend MD Attending Provider, Other Provider Active Team Status: Inactive Member Role Status Dates Dr. Rere Aguiar MD Primary Care Provider Active Dr. Rei German DO Emergency Provider Active Dr. Christiane Martin MD Admit Provider, Other Provider Active Dr. Wayne Friend MD Attending Provider Active Doctor Of Dental Surgery Relationship Specialty Start Date End Date Rere Aguiarer PCP - General Family Medicine 06/05/14 Doctor Of Dental Surgery Relationship Specialty Start Date End Date Rere Aguiar Ashok PCP - General Family Medicine 06/05/14 Doctor Of Dental Surgery Relationship Specialty Start Date End Date DeniaRere mckeon PCP - General Family Medicine 06/05/14 Doctor Of Dental Surgery Relationship Specialty Start Date End Date Deniamike Rere Ashok PCP - General Family Medicine 06/05/14 Doctor Of Dental Surgery Relationship Specialty Start Date End Date Chaisaiah Rere Ashok PCP - General Family Medicine 06/05/14 Doctor Of Dental Surgery Relationship Specialty Start Date End Date ChaisaiahRere Ashok PCP - General Family Medicine 06/05/14 Doctor Of Dental Surgery Relationship Specialty Start Date End Date Deniamike Rere Ashok PCP - General Family Medicine 06/05/14 Doctor Of Dental Surgery Relationship Specialty Start Date End Date DeniaRere mckeon PCP - General Family Medicine 06/05/14 Doctor Of Dental Surgery Relationship Specialty Start Date End Date Rere Aguiar PCP - General Family Medicine 06/05/14 Doctor Of Dental Surgery Relationship Specialty Start Date End Date Rere Aguiar PCP - General Family Medicine 06/05/14 Doctor Of Dental Surgery Relationship Specialty Start Date End Date Rere Aguiar PCP - General Family Medicine 06/05/14 Doctor Of Dental Surgery Relationship Specialty Start Date End Date Rere Aguiar PCP - General Family Medicine 06/05/14 Doctor Of Dental Surgery Relationship Specialty Start Date End Date Rere Aguiar PCP - General Family Medicine 06/05/14 Doctor Of Dental Surgery Relationship Specialty Start Date End Date ChaRere colon PCP - General Family Medicine 06/05/14 Team Status: Active Member Role Status Dates Employee Health Attending Provider Active Team Status: Inactive Member Role Status Dates Dr. Rere Aguiar MD Primary Care Provider Active Dr. Antonio Jarvis MD Attending Provider, Emergency Provider Active Team Status: Active Member Role Status Dates Dr. Rere Aguiar MD Primary Care Provider Active Health Risk Assessment Attending Provider, Kel salcedo Active Team Status: Inactive Member Role Status Dates Dr. Rere Aguiar MD Primary Care Provider Active Dr. Idris Capellan DO Emergency Provider Active Doctor Of Dental Surgery Relationship Specialty Start Date End Date Rere Aguiar PCP - General Family Medicine 06/05/14 Doctor Of Dental Surgery Relationship Specialty Start Date End Date DeniaRere mckeon PCP - General Family Medicine 06/05/14 Doctor Of Dental Surgery Relationship Specialty Start Date End Date Rere Aguiar PCP - General Family Medicine 06/05/14 Doctor Of Dental Surgery Relationship Specialty Start Date End Date Rere Aguiar PCP - General Family Medicine 06/05/14 Doctor Of Dental Surgery Relationship Specialty Start Date End Date Rere Aguiar PCP - General Family Medicine 06/05/14 Source Comments (unrecognize d section and content) In the event this informatio n is protected by the Federal Confidentiality of Alcohol and Drug Abuse Patient Records regulations: The Federal rules restrict any use of the information to criminally investigate or prosecute any alcohol or drug abuse patient.[facility] the event this information is protected by the Federal Confidentiality of Alcohol and Drug Abuse Patient Records regulations: The Federal rules restrict any use of the information to criminally investigate or prosecute any alcohol or drug abuse patient.[facility]In the event this information is protected by the Federal Confidentiality of Alcohol and Drug Abuse Patient Records regulations: The Federal rules restrict any use of the information to criminally investigate or prosecute any alcohol or drug abuse patient.[facility]In the event this information is protected by the Federal Confidentiality of Alcohol and Drug Abuse Patient Records regulations: The Federal rules restrict any use of the information to criminally investigate or prosecute any alcohol or drug abuse patient.[facility]In the event this information is protected by the Federal Confidentiality of Alcohol and Drug Abuse Patient Records regulations: The Federal rules restrict any use of the information to criminally investigate or prosecute any alcohol or drug abuse patient.[facility] the event this information is protected by the Federal Confidentiality of Alcohol and Drug Abuse Patient Records regulations: The Federal rules restrict any use of the information to criminally investigate or prosecute any alcohol or drug abuse patient.[facility]In the event this information is protected by the Federal Confidentiality of Alcohol and Drug Abuse Patient Records regulations: The Federal rules restrict any use of the information to criminally investigate or prosecute any alcohol or drug abuse patient.[facility]In the event this information is protected by the Federal Confidentiality of Alcohol and Drug Abuse Patient Records regulations: The Federal rules restrict any use of the information to criminally investigate or prosecute any alcohol or drug abuse patient.[facility]In the event this information is protected by the Federal Confidentiality of Alcohol and Drug Abuse Patient Records regulations: The Federal rules restrict any use of the information to criminally investigate or prosecute any alcohol or drug abuse patient.[facility] ClinicIn the event this information is protected by the Federal Confidentiality of Alcohol and Drug Abuse Patient Records regulations: The Federal rules restrict any use of the information to criminally investigate or prosecute any alcohol or drug abuse patient.[facility]In the event this information is protected by the Federal Confidentiality of Alcohol and Drug Abuse Patient Records regulations: The Federal rules restrict any use of the information to criminally investigate or prosecute any alcohol or drug abuse patient.[facility] ClinicIn the event this information is protected by the Federal Confidentiality of Alcohol and Drug Abuse Patient Records regulations: The Federal rules restrict any use of the information to criminally investigate or prosecute any alcohol or drug abuse patient.[facility]In the event this information is protected by the Federal Confidentiality of Alcohol and Drug Abuse Patient Records regulations: The Federal rules restrict any use of the information to criminally investigate or prosecute any alcohol or drug abuse patient.[facility] ClinicIn the event this information is protected by the Federal Confidentiality of Alcohol and Drug Abuse Patient Records regulations: The Federal rules restrict any use of the information to criminally investigate or prosecute any alcohol or drug abuse patient.[facility]In the event this information is protected by the Federal Confidentiality of Alcohol and Drug Abuse Patient Records regulations: The Federal rules restrict any use of the information to criminally investigate or prosecute any alcohol or drug abuse patient.[facility]In the event this information is protected by the Federal Confidentiality of Alcohol and Drug Abuse Patient Records regulations: The Federal rules restrict any use of the information to criminally investigate or prosecute any alcohol or drug abuse patient.[facility]In the event this information is protected by the Federal Confidentiality of Alcohol and Drug Abuse Patient Records regulations: The Federal rules restrict any use of the information to criminally investigate or prosecute any alcohol or drug abuse patient.[facility] ClinicIn the event this information is protected by the Federal Confidentiality of Alcohol and Drug Abuse Patient Records regulations: The Federal rules restrict any use of the information to criminally investigate or prosecute any alcohol or drug abuse patient.[facility]In the event this information is protected by the Federal Confidentiality of Alcohol and Drug Abuse Patient Records regulations: The Federal rules restrict any use of the information to criminally investigate or prosecute any alcohol or drug abuse patient.[facility] ClinicIn the event this information is protected by the Federal Confidentiality of Alcohol and Drug Abuse Patient Records regulations: The Federal rules restrict any use of the information to criminally investigate or prosecute any alcohol or drug abuse patient.[facility]In the event this information is protected by the Federal Confidentiality of Alcohol and Drug Abuse Patient Records regulations: The Federal rules restrict any use of the information to criminally investigate or prosecute any alcohol or drug abuse patient.[facility]In the event this information is protected by the Federal Confidentiality of Alcohol and Drug Abuse Patient Records regulations: The Federal rules restrict any use of the information to criminally investigate or prosecute any alcohol or drug abuse patient.[facility]In the event this information is protected by the Federal Confidentiality of Alcohol and Drug Abuse Patient Records regulations: The Federal rules restrict any use of the information to criminally investigate or prosecute any alcohol or drug abuse patient.[facility]In the event this information is protected by the Federal Confidentiality of Alcohol and Drug Abuse Patient Records regulations: The Federal rules restrict any use of the information to criminally investigate or prosecute any alcohol or drug abuse patient.[facility]In the event this information is protected by the Federal Confidentiality of Alcohol and Drug Abuse Patient Records regulations: The Federal rules restrict any use of the information to criminally investigate or prosecute any alcohol or drug abuse patient.[facility]In the event this information is protected by the Federal Confidentiality of Alcohol and Drug Abuse Patient Records regulations: The Federal rules restrict any use of the information to criminally investigate or prosecute any alcohol or drug abuse patient.[facility]In the event this information is protected by the Federal Confidentiality of Alcohol and Drug Abuse Patient Records regulations: The Federal rules restrict any use of the information to criminally investigate or prosecute any alcohol or drug abuse patient.[facility] ClinicIn the event this information is protected by the Federal Confidentiality of Alcohol and Drug Abuse Patient Records regulations: The Federal rules restrict any use of the information to criminally investigate or prosecute any alcohol or drug abuse patient.[facility] ClinicIn the event this information is protected by the Federal Confidentiality of Alcohol and Drug Abuse Patient Records regulations: The Federal rules restrict any use of the information to criminally investigate or prosecute any alcohol or drug abuse patient.[facility] ClinicIn the event this information is protected by the Federal Confidentiality of Alcohol and Drug Abuse Patient Records regulations: The Federal rules restrict any use of the information to criminally investigate or prosecute any alcohol or drug abuse patient.[facility] Reason for Visit (unrecogniz ed section and content) Reason Comments Hand Pain L hand pain and swel ling x2 weeks intermittent Reason Comments Results Medication Problem Rx Sent to Wrong Ph[facility] Reason Comments Appointment Reason Comments Patient Question Reason Comments Results Reason Comments Appointment ? error with schedul ing -- pt seen on 02/01 - return 1 mth for repeat labs -- CT is scheduled for 02/08 Specialty Diagnoses / Procedures Referred By Ilir hall Referred To Contact CT IMAGING Diagnoses Chronic pain of both knees Hyperuricemia Procedures CT KNEE WO IVCON RIGHT CT LOWER EXTREMITY W/O CONTRAST MATERIAL Rere Valentino, ASSISTANT EDITOR.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 [address] [place] [address] [place] [id number] Referral ID Status Reason Start Date Expiration Date V isits Requested Visits Authorized [id number] Closed Clearance Not Met - Admin/Chairm an/Director Advise to Postpone/Res chedule or Not Proceed 02/04/2024 04/04/2024 1 1 Reason Comments Results Reason Comments F/U 1 month Joint pain -- US yes terday -- Rt foot pain x 3 days ago -- Reason Comments Patient Update FY Only, Knee Pain Reason Comments Consult Lump on upper back- right sided Reason Comments Right Knee Pain continues to have R knee pain, stiffness and swelling -- last dose of Prednisone 4 days ago -- requesting refill of Prednisone, Vit D and lidocaine patch Reason Comments prior authorization Reason Comments Patient Update Reason Comments Medication Problem Specialty Diagnoses / Procedures Referred By Ilir hall Referred To Contact MR IMAGING Diagnoses Neck mass Procedures MRI SOFT TISSUE NECK WO/W IVCON MRI ORBIT FACE & NECK W/O & W/CONTRAST Peggy Wood MD [address] [address] [place] [address] Referral ID Status Reason Start Date Expiration Date V isits Requested Visits Authorized [id number] Closed Auto-Generate d Referral 04/21/2024 06/06/2024 1 1 Reason Comments Follow Up Rt knee swelling and soreness -- Prednisone has only taken 2 tabs over the past 4 days-- has only been taking 100mg of Allopurinol daily Reason Comments Appointment Ortho Reason Comments New Pain Reason Comments New Tumor/Mass Specialty Diagnoses / Procedures Referred By Ilir t Referred To Contact Orthopedics Diagnoses Lipoma of right upper extremity Procedures CONSULT TO ORTHOPAEDICS OFFICE/OUTPATIENT NEW HIGH MDM 60 MINUTES Peggy Hunter MD [address] [facility] [address] [place] [address] Pascual Perry MD [address] [place] [address] Referral ID Status Reason Start Date Expiration Date V isits Requested Visits Authorized [id number] Closed PCP Requested Referral 04/25/2024 04/25/2025 1 1 Reason Comments Refill Request FOR RECORDS PERTAINING TO PATIENTS WHO ARE [...] BE BASED ON THE PRIMARY CLINICAL RECORDS. [employer] [facility]. provides no warranty or guarantee of the accuracy or completeness of information in this document.
--- NOTE | 2025-09-25 03:10 | RAD_ITS ---
PROCEDURE: RIBS UNI MIN 3V W/PA CHEST 09/25/2025 REASON FOR EXAM: PAIN TECHNIQUE: Procedure Code: RADRIB Modality: DX Procedure: RIBS UNI MIN 3V W/PA CHEST COMPARISON: None. FINDINGS: The lungs are expanded. There is no demonstrated parenchymal abnormality. There is no demonstrated pleural abnormality. Normal heart and pericardium. Normal mediastinum and romero. Normal visualized pulmonary arteries. Normal visualized aortic arch and descending thoracic aorta. Normal visualized thoracic spine. Normal visualized ribs, clavicles, and shoulders. There is no demonstrated abnormality of the visualized soft tissue structures of the upper abdomen. RAD/Ribs Uni Min 3V w/PA Chest IMPRESSION: No rib fracture is noted. Reading [facility]
--- NOTE | 2025-09-25 03:49 | EX.ED.DYSGE1 ---
HPI History of Present Illness Chief Complaint: Other, Pain/Inj Informant: patient Narrative Narrative: Patient is a 60-year-old male with past medical history of gout. He states that a few days ago he was stretching trying to reach something high up. He states he did not feel immediate pain or a pop but that the next day noticed pain in the right side. He states that the pain is worse with motion. He denies any fevers chills cough congestion or shortness of breath. He states that has been no nausea vomiting diarrhea or dysuria. He denies any hematuria. He states has been taking [id number] medications without any symptom improvement and secondary to this presents for evaluation. [facility] Medical History Cataract Gout Home Medications ?Medication ?Instructions ?Recorded ?Last Taken ?Type dupilumab 300 mg/2 mL subcutaneous mg subcut 09/25/25 Unknown History pen injector (Dupixent) methocarbamol 500 mg tablet 500 mg PO 4X/DAY PRN Muscle 09/25/25 Unknown Rx pain/spasm #40 tabs oxycodone-acetaminophen 5 mg-325 1 tab PO Q6H PRN pain 3 days #12 09/25/25 Unknown Rx mg tablet (Percocet) tabs Allergy/AdvReac Type Severity Reaction Status Date / Time No Known Allergies Allergy Verified 09/25/25 02:29 Family History Mother Cancer Surgical History H/O eye surgery Social History household members: other Smoking Status: Never smoker substance use type: does not use ROS ROS ED Constitutional Constitutional ED: Denies chills or fever(s) ENT ENT ED: Denies sore throat Cardiovascular Cardiovascular: Denies chest pain Respiratory/Chest Respiratory/Chest: Denies cough or dyspnea Gastrointestinal Gastrointestinal: Denies abdominal pain, constipation, diarrhea, nausea or vomiting Genitourinary Genitourinary ED: Denies dysuria or hematuria Musculoskeletal Musculoskeletal: Reports other Details: Positive right chest wall/rib pain ; Denies back pain or myalgias Integumentary Denies Abrasions or rash Neurologic Neurologic: Denies headache(s) Hematologic/Lymphatic Hematologic/Lymphatic: Denies easy bleeding or easy bruising EXAM Physical Exam Const Vital Signs: 09/25/25 02:26 09/25/25 02:29 09/25/25 03:58 Temperature 97.6 F L 97.6 F L Temperature Source Oral Pulse Rate 60 68 Respiratory Rate 18 18 Respiratory Effort Normal Non-Labored Respiratory Pattern Normal Blood Pressure 170/91 H 170/91 H Blood Pressure Mean 117 117 Pulse Ox 98 98 Oxygen Delivery Method Room Air Positive well nourished and well developed General Appearance ED: well developed; Negative for pallor HEENT HEENT Narrative: Normocephalic atraumatic Eyes PERRL and EOMs intact bilaterally General Eye ED: Negative for scleral icterus Neck supple Chest Wall Chest Narrative: There is reproducible right lateral and posterior rib pain with palpation along the 6th and 9th ribs. No obvious bony deformity. No subcutaneous emphysema noted No overlying soft tissue changes to suggest trauma or infection Resp normal respiratory effort and clear to auscultation bilaterally Resp Narrative: No nasal flaring retractions tachypnea or accessory muscle use Cardio regular rate and regular rhythm Rate: other Other Details: Radial and carotid pulses are equal and symmetric GI normal to inspection, nondistended, normoactive bowel sounds, non-tender, non-distended and no masses GI Narrative: No voluntary guarding or rigidity or pulsatile mass Negative Hood sign Auscultation: normoactive bowel sounds Palpation: soft Back/Spine no CVA tenderness Extremity normal to inspection Neuro oriented x3, CN's II-XII intact bilaterally and no sensory deficits noted Sensorium / Orientation: alert Motor Exam: strength 5/5 throughout Psych mental status grossly normal Skin no rashes or lesions noted and no wounds General Skin Exam: Negative for jaundice or pallor MDM MDM MDM Narrative Medical decision making narrative: Patient arrived to the ER hypertensive but otherwise with stable vitals. He reported pain in the right lateral posterior ribs/chest wall without known trauma. There is no CVA pain to suggest pyelonephritis and he denies hematuria going against kidney stone. Without pain in the right upper quadrant I have low concern for gallbladder pathology such as biliary colic or acute cholecystitis. The pain is reproducible with palpation and motion indicating this is most likely musculoskeletal and do not feel the need for cardiac workup. He also denies any recent travel surgery or history of DVT/PE and he is not tachycardic or hypoxic so I have low concern for these and there is no need for a CTA. There is potential for however a spontaneous rib fracture or pneumothorax or atypical presentation for pneumonia so I did do a right rib series with 1 view chest x-ray. This revealed no acute findings such as fracture or pneumothorax or infiltrate. After receiving Toradol and Norflex he did report improvement of his pain. Without rash have low concern for shingles. Therefore at this time his symptoms seem to be musculoskeletal in nature he will be given symptomatic medication and is otherwise safe for discharge History & Record Review Discussion w/independent historian: Patient Radiography Diagnostic Testing: Clinical Impression(s) from Imaging Studies Ribs w/Chest X-Ray 09/25/25 03:10 IMPRESSION: No rib fracture is noted. Reading Location: [place] [id number] Right rib series with 1 view chest as interpreted by the emergency medicine physician reveals no acute rib fracture or pneumothorax or infiltrate Discharge Plan Triage Chief Complaint: Other, Pain/Inj ED Provider: Bry Baer Dx/Rx/DC Orders Clinical Impression: Intercostal muscle strain, History of gout, Hypertension Instructions: ED Chest Wall Strain Prescriptions: New methocarbamol 500 mg tablet 500 mg PO 4X/DAY PRN (Reason: Muscle pain/spasm) Qty: 40 0RF oxycodone-acetaminophen [Percocet] 5-325 mg tablet 1 tab PO Q6H PRN (Reason: pain) 3 Days Qty: 12 0RF No Action Dupixent Pen 300 mg/2 mL pen injector SUBCUT Patient Comments: [NO ORIGINAL SIG] Primary Care Provider: Care Physician,No Primary Referrals: Messi Younger MD [Med Staff - Active Staff, Family Practice] Care Physician,No Primary [Primary Care Provider, Medical] Activity Restrictions/Additional Instructions: Your x-ray reveals no obvious rib fracture infection or pneumothorax/hole in your lung indicating your pain is due to irritation to the rib muscles. Continue to stretch and heat the area as well as use [id number] treatments such as lidocaine patches or IcyHot on top of the prescribed medications. Symptoms should improve over the next 5 to 7 days. Return to the ER should you have any further concerns Print Language: Barbadian Disposition Disposition: Home, Self Care Discharge Date/Time: 09/25/25 03:59
[2025-09-25 03:58] VITALS: BP 170/91; PULSE 68; RESP 18; TEMP 36.4; O2SAT 98
== END 2025-09-25 03:59 | disposition home or self-care (01) ==
PROVIDERS: Emergency Provider Emergency Medicine; Visit Provider Emergency Medicine
DX: S29.011A Strain of muscle and tendon of front wall of thorax, initial encounter (principal); I10 Essential (primary) hypertension; M10.9 Gout, unspecified; Z79.85 Long-term (current) use of injectable non-insulin antidiabetic drugs; X50.9XXA Other and unspecified overexertion or strenuous movements or postures, initial encounter
CPT/HCPCS: 71101; 96372; 99282

== ENCOUNTER 2025-10-07 22:29 | Emergency (ER) | payer MEDICAID, SELFPAY ==
[2025-10-07 22:29] VITALS: BP 165/91; PULSE 70; RESP 14; TEMP 35.6; O2SAT 98; BMI 35.2
--- NOTE | 2025-10-07 22:43 | CT_ITS ---
PROCEDURE: ABDOMEN/PELVIS WITHOUT CONT 10/08/2025 REASON FOR EXAM: RIGHT FLANK PAIN TECHNIQUE: Procedure Code: CTABDPEL Modality: CT Procedure: ABDOMEN/PELVIS WITHOUT CONT Noncontrast technique limits evaluation of the abdominal and pelvic viscera. Coronal and Sagittal reconstruction series were provided. One or more dose reduction techniques were used (e.g., Automated exposure control, adjustment of the mA and/or kV according to patient size, use of iterative reconstruction technique). RADIATION DOSE SUMMARY: CTDI Vol 13.71 mGy DLP :713.64 mGycm COMPARISON: none FINDINGS: Enlarged liver showing homogenous parenchymal attenuation. No dilated intra or extra-hepatic biliary tracts. Gall bladder showing no radiodense calculi. Normal unenhanced appearance of the pancreas with clear surrounding fat planes. The unenhanced spleen, adrenal glands and IVC are unremarkable. Vascular atheromatous calcifications Both kidneys are of average size and showing smooth outline with preserved parenchymal thickness. No renal calculi. No hydronephrosis. Bilateral renal small hypodense cortical cysts. Distension of the urinary bladder showing no obvious masses. Enlarged prostate. Few pelvic phleboli. The appendix appears unremarkable. No right iliac inflammatory changes. Colonic fecal loading. The small bowel loops are unremarkable. The stomach is unremarkable. No ascites or free air. No obvious pathologically enlarged lymph nodes. Scanned osseous structures show no osseous destruction. Thoracolumbar spondylosis. Scanned lung bases show no obvious abnormalities. CT/Abdomen/Pelvis without Cont IMPRESSION: No acute pelvi-abdominal abnormalities, collections or free air. Enlarged prostate. Reading Location: [facility]
[2025-10-07] MEDS: 0.9% Normal Saline (1000mL) 1,000 ML 999 ML IV (22:50)
[2025-10-07] MEDS: Ketorolac 30 MG/ML Syringe IV (22:51)
[2025-10-07 22:57] LABS: Hematocrit 43.2 % (40-54); Hemoglobin 14.3 g/dL (13.0-16.5); Immature Granulocytes Count 0.040 X10^3/uL (0.0-0.0); Mean Corp Hgb Conc 33.1 g/dL (32-36); Mean Corpuscular Volume 91.3 fL (80-94); Mean Platelet Vol. 10.3 fl (6.2-12.0); NRBC Flagged by Analyzer 0 % (0-5); Platelet Count 287 K/mm3 (150-450); RBC Distribution Width CV 13.6 % (11.6-14.6); RBC Distribution Width SD 46.3 fl (35.1-43.9); Red Blood Count 4.73 M/mm3 (4.6-6.2); White Blood Count 9.4 K/mm3 (4.4-11.0)
--- OUTSIDE RECORDS SUMMARY | 2025-10-07 23:02 | XMS RPT_ITS | CCD ---
Author Organization [facility]iniSynm Care Team Providers Care Marketing Financial Analyst Name Role Phone Keyana Abebe Unavailable Unavaila ble Keyana Abebe Unavailable Unavaila ble Rere Aguiar Unavailable Unavailable Keyana Abebe Unavailable Unavaila ble Keyana Abebe Unavailable Unavaila fransico JoRere mckeon Unavailable Unavailable Cosme Rere Ashok Unavailable Unavailable Keyana Abebe Unavailable Unavaila ble Keyana Abebe Unavailable Unavaila ble PCP, Pt states no Unavailable Unavailable Rere Aguiar Unavailable Unavailable Rere Aguiar Primary Care Provider Dr. Rere Aguiar Primary Care Provider Dr. Rei German Emergency Provider [phone] Dr. Christiane Martin Admit Provider Dr. Christiane Martin Attending Provider [phone] Dr. Christiane Martin Other Provider Dr. Wayne Friend Attending Provider Dr. Wayne Friend Other Provider RERE AGUIAR Primary Care Unavailable RERE VALENTINO Referring Unavailable Dr. Rere Aguiar Primary Care Provider Dr. Rei German Emergency Provider Mario Dr. Christiane Wade Admit Provider [phone] Mario, Dr. Christiane Wade Attending Provider Mairo, Dr. Christiane Wade Other Provider [phone] Wayne Friend Attending Provider Dr. Wayne Friend Other Provider Jolliff, Rere Ashok Primary Care Provider JOLLIFF, RERE ASHOK Primary Care Unavailable PEGGY [...] Care Unavailable CHICHO, RERE M Attending Unavailable SIMONORELMACI PENA Referring Unavailab le JOLLIFF, RERE ASHOK Primary Care Unavailable CHICORELLIMACI Attending Unavailab le JOLLIFF, RERE ASHOK Primary Care Unavailable LUIS MIGUEL RHODES Attending Unavailable JOLLIFF, RERE ASHOK Primary Care Unavailable HUNTERMISTYPEGGY E Referring Unavailable RAMONITAMALIK Attending Unavailable JOLLIFF, RERE ASHOK Primary Care Unavailable JOLLIFF, RERE ASHOK Primary Care Unavailable CHICHO, RERE M Attending Unavailable JOLLIFF, RERE ASHOK Primary Care Unavailable CHICHO, RERE M Referring Unavailable POLI MERAFANY M Referring Unavailable JOLLIFF, RERE ASHOK Primary Care Unavailable JOLLIFF, RERE ASHOK Primary Care Unavailable CHICHO, RERE M Attending Unavailable JOLLIFF, RERE ASHOK Primary Care Unavailable CHICHO, RERE M Referring Unavailable JOLLIFF, RERE ASHOK Primary Care Unavailable CHICHO, RERE M Attending Unavailable JOLLIFF, RERE ASHOK Primary Care Unavailable CHICHO, RERE M Referring Unavailable Bry Baer Attending Unavailable Care Physician, No Primary Primary Care Unava ilable Medications Current Medications Medication Drug Class(es) Dates [...] Comment on above: Take 2 capsules by m out once daily. clindamycin 10 mg/ml topical [...] (14 sources) Angiotensin 2 Receptor Bella Start: take 1 tablet by mouth once losartan [...] on above: Take 1 tablet by krystal every afternoon. methylPREDNISolone 4 mg oral tablet [...] MG PO every 6 to 12 hours November 18, 2017 1:00am February 24, 2018 3:30pm administer with food or milk. 500mg first dose and then 250mg q8h until pain resolves [place] (Nk) (3 sources) Start: 03-18-2023 [place] (Nk) A ctive March 18, 2023 12:00am Start: 10-14-2022 [place] (Nk) A ctive October 14, 2022 12:00am [...] 1 TABLET PO EVERY 6 HOURS NEEDED 12 September 20, 2018 12:00am September 23, 2018 12:20am [...] on above: Take 1 capsule by mo uth two times a week. (FOR EXAMPLE ONE [...] in the MR contrast administration guidelines link. Cawood-3 Fatty Acids-Vitamin E (FISH OIL) 1,000 mg cap (1 source) Cawood-3 Fatty Acids-Vitamin E (FISH OIL) 1,000 mg cap Take 1 capsule by mouth. 0 Active Comment on above: Take 1 capsule by [facility]. sulfamethoxazole 800 mg / trimethoprim 160 mg oral tablet (20 sources) Dihydrofolate Reductase Inhibitor Antibacterial, Sulfonamide Antimicrobial Start : 03-14 End: 03-14 take 1 tablet by mouth twice daily Sulfamethoxazole-Trimeth oprim Discontinued 1 TABLET PO TWICE A DAY 14 March 14, 2022 12:00am March 14, 2022 3:47pm traMADol hydrochloride 50 mg oral tablet (20 sources) Opioid Agonist Start : 01-26 End: 02-01 take 50 mg by mouth twice daily Tramadol Discontinued 50 MG PO TWICE A DAY 14 January 26, 2020 1:00am February 02, 2020 1:09am triamcinolone acetonide 40 mg/ml injectable suspension (18 sources) Corticosteroid Start : 03-18 End: 03-18 Kenalog (triamcinolone acetonide) 40 mg/mL suspension for injection Discontinued 20 MG INTRAARTIC ONCE 0.5 March 18, 2021 1:51pm March 18, 2021 2:53pm Start: 05-14-2020 End: 05-14-2020 Kenalog (triamcinolone aceto nide) 40 mg/mL suspension for injection Discontinued 40 MG INTRAARTIC ONCE May 14, 2020 10:04am May 14, 2020 11:26am Start: 11-18-2017 End: 11-18-2017 Kenalog (triamcinolone aceto nide) 10 mg/mL suspension for injection Discontinued 10 MG INTRAARTIC ONCE November 18, 2017 4:49pm November 18, 2017 4:53pm Problems Active Problems Problem Classification Problem Date Documented Date Episodic/Chronic Crushing injury or internal injury (1 source) Crushing injury of finger; Translations: [Crushing injury of unspecified finger(s), initial encounter] 03-21-2024 Episodic Essential hypertension (19 sources) Hypertensive disorder; Translations: [Essential (primary) hypertension] 09-23-2022 Chronic Fracture of lower limb (10 sources) Metatarsal bone fracture; Translations: [Fracture of unspecified metatarsal bone(s), unspecified foot, initial encounter for closed fracture] 03-18-2023 Episodic 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) Gout; Translations: [Gout, unspecified] Onset: 05-29-2024 09-21-2018 Chronic Malaise and fatigue (8 sources) Asthenia; Translations: [Weakness] 11-26-2023 Episodic Nonspecific chest pain (20 sources) Atypical chest pain; Translations: [Other chest pain] Onset: 10-04-2025 02-17-2022 Episodic Nutritional deficiencies (5 sources) Vitamin [...] Problem Classification Problem Date Documented Date Episodic/Chronic Other and unspecified benign neoplasm (1 source) Benign lipomatous neoplasm, unspecified; Translations: [Intramuscular lipoma] Onset: 05-16-2024 Episodic Other and unspecified benign neoplasm (1 source) Benign lipomatous neoplasm of skin and subcutaneous tissue of right arm; Translations: [Lipoma of right upper extremity] Onset: 05-16-2024 Episodic Other connective tissue disease (1 source) Pain in right hand; Translations: [Bilateral hand pain] Onset: 12-27-2023 Episodic Other connective tissue disease (1 source) Pain in left hand; Translations: [Bilateral hand pain] Onset: 12-27-2023 Episodic Other non-traumatic joint disorders (7 sources) Pain in right knee; Translations: [Pain in joint, lower leg] Onset: 12-27-2023 01-18-2024 Episodic Other non-traumatic joint disorders (2 [...] Test Name Value Interpretation Reference Range Facility Emergency Department Summary on 09-25-2025 Emergency Department Summary [facility] Medical Records Department [address] [place] [address] Emergency Department Summary 09/25/25 MR#: [id number] Acct: [id number] Name: XIANG WEST Rep #: [id number] : 1965 60 From: Bry Baer DO PCP: Care Physician,No Primary Status:DEP ER Location: ED HPI History of Present Illness Chief Complaint: Other, Pain/Inj Informant: patient Narrative Narrative: Patient is a 60-year-old male with past medical history of gout. He states that a few days ago he was stretching trying to reach something high up. He states he did not feel immediate pain or a pop but that the next day noticed pain in the right side. He states that the pain is worse with motion. He denies any fevers chills cough congestion or shortness of breath. He states that has been no nausea vomiting diarrhea or dysuria. He denies any hematuria. He states has been taking fdne-jyf-jnviyzw medications without any symptom improvement and secondary to this presents for evaluation. PFSH PFS Medical History Cataract Gout Home Medications ???Medication ???Instructions ???Recorded ???Last Taken ???Type dupilumab 300 mg/2 mL subcutaneous mg subcut 09/25/25 Unknown Histo ry pen injector (Dupixent) methocarbamol 500 mg tablet 500 mg PO 4X/DAY PRN Muscle Unknown Rx pain/spasm #40 tabs oxycodone-acetaminoph en 5 mg-325 1 tab PO Q6H PRN pain 3 days #12 1 Unknown Rx mg tablet (Percocet) tabs Allergy/AdvReac Type Severity Reaction Status Date / Time No Known Allergies Allergy Verified 09/25/25 02:29 Family History Mother Cancer Surgical History H/O eye surgery Social History household members: other Smoking Status: Never smoker substance use type: does not use ROS ROS ED Constitutional Constitutional ED: Denies chills or fever(s) ENT ENT ED: Denies sore throat Cardiovascular Cardiovascular: Denies chest pain Respiratory/Chest Respiratory/Chest: Denies cough or dyspnea Gastrointestinal Gastrointestinal: Denies abdominal pain, constipation, diarrhea, nausea or vomiting Genitourinary Genitourinary ED: Denies dysuria or hematuria Musculoskeletal Musculoskeletal: Reports other Details: Positive right chest wall/rib pain ; Denies back pain or myalgias Integumentary Denies Abrasions or rash Neurologic Neurologic: Denies headache(s) Hematologic/Lymphatic Hematologic/Lymphatic : Denies easy bleeding or easy bruising EXAM Physical Exam Const Vital Signs: 09/25/25 02:26 09/25/25 02:29 09/25/25 03:58 Temperature 97.6 F L 97.6 F L Temperature Source Oral Pulse Rate 60 68 Respiratory Rate 18 18 Respiratory Effort Normal Non-Labored Respiratory Pattern Normal Blood Pressure 170/91 H 170/91 H Blood Pressure Mean 117 117 Pulse Ox 98 98 Oxygen Delivery Method Room Air Positive well nourished and well developed General Appearance ED: well developed; Negative for pallor HEENT HEENT Narrative: Normocephalic atraumatic Eyes PERRL and EOMs intact bilaterally General Eye ED: Negative for scleral icterus Neck supple Chest Wall Chest Narrative: There is reproducible right lateral and posterior rib pain with palpation along the 6th and 9th ribs. No obvious bony deformity. No subcutaneous emphysema noted No overlying soft tissue changes to suggest trauma or infection Resp normal respiratory effort and clear to auscultation bilaterally Resp Narrative: No nasal flaring retractions tachypnea or accessory muscle use Cardio regular rate and regular rhythm Rate: other Other Details: Radial and carotid pulses are equal and symmetric GI normal to inspection, nondistended, normoactive bowel sounds, non-tender, non-distended and no masses GI Narrative: No voluntary guarding or rigidity or pulsatile mass Negative Hood sign Auscultation: normoactive bowel sounds Palpation: soft Back/Spine no CVA tenderness Extremity normal to inspection Neuro oriented x3, CN's II-XII intact bilaterally and no sensory deficits noted Sensorium / Orientation: alert Motor Exam: strength 5/5 throughout Psych mental status grossly normal Skin no rashes or lesions noted and no wounds General Skin Exam: Negative for jaundice or pallor MDM MDM MDM Narrative Medical decision making narrative: Patient arrived to the ER hypertensive but otherwise with stable vitals. He reported pain in the right lateral posterior ribs/chest wall without known trauma. There is no CVA pain to suggest pyelonephritis and he denies hematuria going against kidney stone. With (more content not included)... Normal [facility] Ribs Uni Min 3V w/PA Cheston 09-25-2025 Ribs Uni Min 3V w/PA Chest [facility] Imaging Services [address] [place] [address] Ribs Uni Min 3V w/PA Chest MR#: [id number] Acct: [id number] Name: XIANG WEST Rep #: [id number] : 1965 M 60 From: Rhiannon howard MD PCP: Care Physician,No Primary Status: DEP ER Study: Ribs Uni Min 3V w/PA Chest Date of Exam: 09/25 Exam# [id number] Ordering Dr: Bry Baer DO PROCEDURE: RIBS UNI MIN 3V W/PA CHEST 09/25/2025 REASON FOR EXAM: PAIN TECHNIQUE: Procedure Code: RADRIB Modality: DX Procedure: RIBS UNI MIN 3V W/PA CHEST COMPARISON: None. FINDINGS: The lungs are expanded. There is no demonstrated parenchymal abnormality. There is no demonstrated pleural abnormality. Normal heart and pericardium. Normal mediastinum and romero. Normal visualized pulmonary arteries. Normal visualized aortic arch and descending thoracic aorta. Normal visualized thoracic spine. Normal visualized ribs, clavicles, and shoulders. There is no demonstrated abnormality of the visualized soft tissue structures of the upper abdomen. RAD/Ribs Uni Min 3V w/PA Chest IMPRESSION: No rib fracture is noted. Reading Location: [facility] CC: Bry Baer DO; No Primary Care Physician Patch Machine Operator: Signed Normal [facility] S[place]ad 09-20-2024 CNPN Telephone ([employer]) BRETTXIANG PEOPLES ([id number]) 1965 Alfredo Date Time Provider Department 09/20/24 MACI DORSEY During your visit today, we recorded the following information about you: Rere De La Torre MA 09/20/2024 10:44 AM Signed Patient called in stating he was seen by Dr. Rhodes for a lipoma. Patient prefers not to travel to [facility]. Do you have someone else that you can recommend he see? He is willing to travel to [place]. PedroMaría westfall 09/20/2024 11:[address] Mendoza office, [facility] is the only place that performs this [...] RERE DE LA TORRE on 09/20/24 Normal [facility] CBC panel Auto (Bld)on 05-29 Erythrocyte distribution width (RBC) [Ratio] 14.0 % Normal 11.5-15.0 [facility] Comment on above: Order Comment: Speci men Type: BLOOD SPECIMENOrdering Facility: [facility] Address: [address] [place] [address] Performed By: #### 5 8410-2 ####[facility] LABIA [id number] [place] [id number] [place] Hematocrit (Bld) [Volume fraction] 45.9 % Normal 39.0-51.0 [facility] Comment on above: Order Comment: Speci men Type: BLOOD SPECIMENOrdering Facility: [facility] Address: [address] [place] [address] Performed By: #### 5 8410-2 ####[facility] LABIA [id number] [place] [id number] [place] Hemoglobin (Bld) [Mass/Vol] 15.4 g/dL Normal 13.0-17.0 [facility] Comment on above: Order Comment: Speci men Type: BLOOD SPECIMENOrdering Facility: [facility] Address: [address] [place] [address] Performed By: #### 5 8410-2 ####[facility] LABCLIA [id number] [place] [address] [place] MCH (RBC) [Entitic mass] 30.7 pg Normal 26.0-34.0 [facility] Comment on above: Order Comment: Speci men Type: BLOOD SPECIMENOrdering Facility: [facility] Address: [address] [place] [address] Performed By: #### 5 8410-2 ####[facility] LABCLIA [id number] [place] [address] [place] MCHC (RBC) [Mass/Vol] 33.6 g/dL Normal 30.5-36.0 [facility] Comment on above: Order Comment: Speci men Type: BLOOD SPECIMENOrdering Facility: [facility] Address: [address] [place] [address] Performed By: #### 5 8410-2 ####[facility] LABIA [id number] [place] [address] [place] MCV (RBC) [Entitic vol] 91.4 fL Normal 80.0-100.0 [facility] Comment on above: Order Comment: Speci men Type: BLOOD SPECIMENOrdering Facility: [facility] Address: [address] [place] [address] Performed By: #### 5 8410-2 ####[facility] [id number] [place] [id number] [place] Nucleated RBC (Bld) [#/Vol] 10*3/uL Normal <0.01 [facility] Comment on above: Order Comment: Speci men Type: BLOOD SPECIMENOrdering Facility: [facility] Address: [address] [place] [address] Performed By: #### 5 8410-2 ####[facility] [id number] [place] [address] [place] Platelet mean volume (Bld) [Entitic vol] 10.6 fL Normal 9.0-12.7 [facility] Comment on above: Order Comment: Speci men Type: BLOOD SPECIMENOrdering Facility: [facility] Address: [address] [place] [address] Performed By: #### 5 8410-2 ####[facility] LABIA [id number] [place] [address] [place] Platelets (Bld) [#/Vol] 283 10*3/uL Normal 150-400 [facility] Comment on above: Order Comment: Speci men Type: BLOOD SPECIMENOrdering Facility: [facility] Address: [address] [place] [address] Performed By: #### 5 8410-2 ####[facility] LABIA [id number] [place] [address] [place] [facility] RBC (Bld) [#/Vol] 5.02 10*6/uL Normal 4.20-6.00 [facility] Comment on above: Order Comment: Speci men Type: BLOOD SPECIMENOrdering Facility: [facility] Address: [address] [place] [address] Performed By: #### 5 8410-2 ####[facility] [id number] [place] [id number] [place] [facility] WBC (Bld) [#/Vol] 8.08 10*3/uL Normal 3.70-11.00 [facility] Comment on above: Order Comment: Speci men Type: BLOOD SPECIMENOrdering Facility: [facility] Address: [address] [place] [address] Performed By: #### 5 8410-2 ####[facility] LABIA [id number] [place] [id number] [facility] CNOVon 05-29-2024 CNOV Office Visit (NALDO ) XIANG WEST ([id number]) 1965 M Date Time Provider Department 05/29/24 3:00 PM MALIK MERA During your visit today, we recorded the following information about you: Pulse Blood pressure Weight 77/minute 137/88 117.3 kg Malik Mera, CONTINUOUS IMPROVEMENT FACILITATOR.WELDER RAILCAR MECHANIC 06/20/2024 8:44 AM Signed Rheumatology FOLLOW UP [...] for mobic to resume after that. 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 I spent a total of 20 minutes on the date of the service which included preparing to see the patient, [id number] patient care, completing clinical documentation, obtaining and/or reviewing separately obtained history, performing a medically appropriate examination, and counseling and educating the patient/family/caregi marilu. Malik Mera APRN.WELDER RAILCAR MECHANIC cc: PCP: Rere Aguiar MD ([facility]) Leandro E ADAM [address] [address] Subjective HISTORY OF PRESENT ILLNESS Gout- Treatment: [...] Comment allopuri (more content not included)... Normal [facility] CRP SerPl-mCncon 05-29-2024 CRP [Mass/Vol] mg/L Normal <0.9 [facility] Comment on above: Order Comment: Speci men Type: BLOOD SPECIMENOrdering Facility: [facility] Address: [address] [place] [address] Performed By: #### 2 4328, 1988-03, 3083-11 ####[facility] LABCLIA [id number] [place] [address] [place] [facility] Comprehensive metabolic 2000 panelon 05-29-2024 Albumin [Mass/Vol] 4.4 g/dL Normal 3.9-4.9 [facility] Comment on above: Order Comment: Speci men Type: BLOOD SPECIMENOrdering Facility: [facility] Address: [address] [place] [address] Performed By: #### 2 4328, 1988-03, 3083-11 ####[facility] LABCLIA [id number] [place] [address] [place] ALP [Catalytic activity/Vol] 92 U/L Normal 38-113 [facility] Comment on above: Order Comment: Speci men Type: BLOOD SPECIMENOrdering Facility: [facility] Address: [address] [place] [address] Performed By: #### 2 4328, 1988-03, 3083-11 ####[facility] LABCLIA [id number] [place] [address] [place] ALT [Catalytic activity/Vol] 19 U/L Normal 10-54 [facility] Comment on above: Order Comment: Speci men Type: BLOOD SPECIMENOrdering Facility: [facility] Address: [address] [place] [address] Performed By: #### 2 4323-8, 1988-03, 3083-11 ####[facility] LABCLIA [id number] [place] [address] [place] Anion gap [Moles/Vol] 9 mmol/L Normal 8-15 [facility] Comment on above: Order Comment: Speci men Type: BLOOD SPECIMENOrdering Facility: [facility] Address: [address] [place] [address] Performed By: #### 2 4328, 1988-03, 3083-11 ####[facility] LABCLIA [id number] [place] [address] [place] AST [Catalytic activity/Vol] 22 U/L Normal 14-40 [facility] Comment on above: Order Comment: Speci men Type: BLOOD SPECIMENOrdering Facility: [facility] Address: [address] [place] [address] Performed By: #### 2 4328, 1988-03, 3083-11 ####[facility] LABCLIA [id number] [place] [address] [place] Bilirubin [Mass/Vol] 0.3 mg/dL Normal 0.2-1.3 [facility] Comment on above: Order Comment: Speci men Type: BLOOD SPECIMENOrdering Facility: [facility] Address: [address] [place] [address] Performed By: #### 2 4328, 1988-03, 3083-11 ####[facility] LABCLIA [id number] [place] [address] [place] Calcium [Mass/Vol] 9.3 mg/dL Normal 8.5-10.2 [facility] Comment on above: Order Comment: Speci men Type: BLOOD SPECIMENOrdering Facility: [facility] Address: [address] [place], [place] [address] Performed By: #### 2 4328, 1988-03, 3083-11 ####[facility] LABCLIA [id number] [place] [address] [place] Chloride [Moles/Vol] 104 mmol/L Normal 98-107 [facility] Comment on above: Order Comment: Speci men Type: BLOOD SPECIMENOrdering Facility: [facility] Address: [address] [place], [place] [address] Performed By: #### 2 43238, 1988-03, 3083-11 ####[facility]IA [id number] [place] [address] [place] CO2 [Moles/Vol] 25 mmol/L Normal 22-30 [facility] Comment on above: Order Comment: Speci men Type: BLOOD SPECIMENOrdering Facility: [facility] Address: [address] [place], [place] [address] Performed By: #### 2 4328, 1988-03, 3083-11 ####[facility] LABIA [id number] [place] [address] [place] [facility] Creatinine [Mass/Vol] 1.10 mg/dL Normal 0.73-1.22 [facility] Comment on above: Order Comment: Speci men Type: BLOOD SPECIMENOrdering Facility: [facility] Address: [address] [place] [address] Performed By: #### 2 4323-8, 3083-11 ####[facility] LABIA [id number] [place] [address] [facility] Creatinine and Glomerular filtration rate.predicted panel (S/P/Bld) 76 mL/min/1.73m??? Normal >=60 [facility] Comment on above: Order Comment: Speci men Type: BLOOD SPECIMENOrdering Facility: [facility] Address: [address] [place], [place] [address] Result Comment: Laxmi mated Glomerular Filtration Rate [...] reflect actual GFR. Performed By: #### 2 43238, 3083-11 ####[facility] LABCLIA [id number] [place] [address] [place] Glucose [Mass/Vol] 85 mg/dL Normal 74-99 [facility] Comment on above: Order Comment: Speci men Type: BLOOD SPECIMENOrdering Facility: [facility] Address: [address] [place] [address] Result Comment: The [place] [employer] (ADA) provides guidance for cutoff [...] Standards of Medical Care in Diabetes 2016, [place] [employer]. Diabetes Care. 2016.39(Suppl 1). Performed By: #### 2 43202-03, 3083-11 ####[facility] LABIA [id number] [place] [address] [place] Potassium [Moles/Vol] 4.3 mmol/L Normal 3.7-5.1 [facility] Comment on above: Order Comment: Speci men Type: BLOOD SPECIMENOrdering Facility: [facility] Address: [address] [place] [address] Performed By: #### 2 4323-06, 3083-11 ####[facility] LABIA [id number] [place] [address] [place] Protein [Mass/Vol] 7.6 g/dL Normal 6.3-8.0 [facility] Comment on above: Order Comment: Speci men Type: BLOOD SPECIMENOrdering Facility: [facility] Address: [address] [place] [address] Performed By: #### 2 4323-06, 4-1 ####[facility] LABCLIA [id number] [place] [address] [place] Sodium [Moles/Vol] 138 mmol/L Normal 136-144 [facility] Comment on above: Order Comment: Speci men Type: BLOOD SPECIMENOrdering Facility: [facility] Address: [address] [place] [address] Performed By: #### 2 4328, 1988-03, 3083-11 ####[facility] LABIA [id number] [place] [address] [place] Urea nitrogen [Mass/Vol] 17 mg/dL Normal 9-24 [facility] Comment on above: Order Comment: Speci men Type: BLOOD SPECIMENOrdering Facility: [facility] Address: [address] [place] [address] Performed By: #### 2 4328, 1988-03, 3083-11 ####[facility] LABIA [id number] [place] [address] [place] ESR Westergren method (Bld) [Velocity]on 05-29-2024 ESR (Bld) [Velocity] 5 mm/h Normal 0-15 [facility] Comment on above: Order Comment: Speci men Type: BLOOD SPECIMENOrdering Facility: [facility] Address: [address] [place] [address] Performed By: #### 4 537-7 ####[facility] LABCLIA [id number] [address] [address] [place] Urate SerPl-mCncon 4 Urate [Mass/Vol] 3.3 mg/dL Low 4.0-8.1 [facility] Comment on above: Order Comment: Speci men Type: BLOOD SPECIMENOrdering Facility: [facility] Address: [address] [place] [address] Performed By: #### 2 432-8, 1988-03, 3083-11 ####[facility] LINDSEY LABWESTIA [id number] [place] [address] [place] CNOVon 05-16-2024 CNOV Office Visit (ORTHMN ) XIANG WEST ([id number]) 1965 M Date Time Provider Department 05/16/24 [...] % lotion CERAVE BP WASH 2.5 % oxyCODONE-acetaminoph en (PERCOCET) 5-325 mg tablet Take one(1) tablet [...] rotators, biceps, triceps, wrist extension, wrist flexion, yardage caller, dorsal interossei, EPL and APB. Sensation intact [...] a v (more content not included)... Normal [facility] CNOVon 05-11-2024 CNOV Office Visit (DURGA ) XIANG WEST ([id number]) 1965 M Date Time Provider Department 05/11/24 [...] never evaluated. He was seen by his concreting supervisor and she noticed he has a lipoma on top of his back. She had referred him to be evaluated by Peggy Hunter in [place] and then she referred him here. He denies any pain today but he can have pain at times when he stretches his arm outward. His shoulder feels tighter then the left side. Works at [employer] in [employer]. Patient had x-ray done today. MRI [...] CONTACT WITH EYES, DO NOT EXCEED 32GM/DAY oxyCODONE-acetaminoph en (PERCOCET) 5-325 mg tablet Take one(1) tablet [...] by histolo (more content not included)... Normal [facility] XR SHLDR >/=3V AP/KANG AP/OTH R [...] No acute fractures seen. Mild degenerative change Patch Machine Operator: PSCB Transcribe Date/Time: May 16 2024 5:01P Dictated by : LAWANDA MARCANO MD This examination was interpreted and the report reviewed and electronically signed by: LAWANDA MARCANO MD on May 16 2024 5:02PM EST [id number] Normal [facility] 05-02-2024 ANTHONYN Telephone (AGUSTÍN) XIANG WEST ([id number]) 1965 M Date Time Provider Department 05/02/24 RERE VALENTINO During your visit today, we recorded the following information about you: Kristyn Cornejo 05/02/2024 4:33 PM Signed Pt requesting allopurinol to be rewritten and sent to [facility] pharmacy. Unable to fill until May. Pt taking 100 mg twice daily. Please review and advise. No chief complaint on file. Patient has been identified by name and birthdate. Duration of symptoms: N/A Person calling: self Call patient at: on cell [phone] (home) Was an appointment scheduled: No Closing statement: Results or non-symptom based questions: Thank you for calling [facility], your call will be returned within the next business day. Senia Lindquist MA 05/02/2024 4:37 PM Signed Patient's request for medication is as follows: Requested Prescriptions Pending Prescriptions Disp Refills allopurinol (ZYLOPRIM) 100 mg tablet 60 tablet 3 Sig: Take 1 tablet by mouth two times a day. Please approve the above prescription(s) to electronically send to pharmacy. NERIS Leonardo Amy M, APRN.[employer] 05/02/2024 10:59 PM Signed Which is he [...] Date Reviewed: 04/24/2024 Reviewed by: Rere Valentino APRN.[employer]DER [employer] MECHANIC - Fully Assessed Reason for Visit: Medication [...] CERAVE - BP WASH 2.5 % - oxyCODONE-acetaminoph en (PERCOCET) 5-325 mg tablet Take one(1) tablet [...] Encounter Status:Closed by RERE VALENTINO on 05/03/24 [facility] Sarmad 04-25-2024 GORAN Telephone (GENFonduE) XIANG WEST ([id number]) 1965 M Date Time Provider Department 04/25/24 [...] Date Reviewed: 04/24/2024 Reviewed by: Rere Valentino, CONTINUOUS IMPROVEMENT FACILITATOR.[employer] MECHANIC - Fully Assessed Reason for Visit: Appointment [...] CERAVE - BP WASH 2.5 % - oxyCODONE-acetaminoph en (PERCOCET) 5-325 mg tablet Take one(1) tablet [...] Encounter Status:Closed by MARÍA AGUILAR on 04/25/24 [facility] Sarmad 04-22-2024 GORAN Telephone (AHMET) XIANG WEST ([id number]) 1965 M Date Time Provider Department 04/22/24 [...] right upper extremity [D17.21] Order(s):CONSULT TO ORTHOPAEDICS [9026] Order #: [id number]: 1 FUTURE Prescriptions as of 04/25/2024 - [...] CERAVE - BP WASH 2.5 % - oxyCODONE-acetaminoph en (PERCOCET) 5-325 mg tablet Take one(1) tablet [...] Encounter Status:Closed by PEGGY HUNTER on 04/25/24 [facility] MR Neck WO and W contrast IV [...] MDM2 which requires sampling of the lesion. Patch Machine Operator: PSCKeisha Transcribe Date/Time: Apr 21 2024 10:11A Dictated by : BLANCA HYATT DO This examination was interpreted and the report reviewed and electronically signed by: BLANCA HYATT DO on Apr 21 2024 4:10PM [facility] * * *Final Report* * * DATE OF EXAM: Apr 21 2024 8:49AM [facility] 0308 - MRI NECK SOFT TISSUE WO/W [...] No nodular enhancing soft tissue or septations. [facility] Provider, Elena Elizodno [facility] - 04/21/2024 * * *Final Report* * * DATE OF EXAM: Apr 21 2024 8:49AM [facility] 0308 - MRI NECK SOFT TISSUE WO/W [...] MDM2 which requires sampling of the lesion. Patch Machine Operator: BETTY Transcribe Date/Time: Apr 21 2024 10:11A Dictated by : BLANCA HYATT DO This examination was interpreted and the report reviewed and electronically signed by: BLANCA HYATT DO on Apr 21 2024 4:10PM EST [facility] Radiology Study observation (narrative) Kelsi Scott MR Neck WO and W contrast IV Ordered By: Ccf Provider on 04-21-2024 [facility] MRI NECK SOFT TISSUE WO/W IV CONon 04-21-2024 MRI NECK SOFT TISSUE WO/W IVCON * * *Final Report* * * DATE OF EXAM: Apr 21 2024 8:49AM [facility] 0308 - MRI NECK SOFT TISSUE WO/W [...] MDM2 which requires sampling of the lesion. Patch Machine Operator: BETTY Transcribe Date/Time: Apr 21 2024 10:11A Dictated by : BLANCA HYATT DO This examination was interpreted and the report reviewed and electronically signed by: BLANCA HYATT DO on Apr 21 2024 4:10PM EST [id number] [facility] 25([place])D3 [facility] 2023 25-hydroxyvitamin D3 [Mass/Vol] 40.4 ng/mL Normal 31.0-80.0 [facility] Comment on above: Order Comment: Speci men Type: BLOOD SPECIMENOrdering Facility: [facility] Address: [address] [place] [address] Result Comment: Clas sification of 25 [place] Vitamin D status: Deficiency/Insufficiency: < or = 30 ng/ml. Sufficiency/Optimal Levels: 31-80 ng/mL Toxicity: > 100 ng/mL. Test performed by chemiluminescent immunoassay. Performed By: #### 1 989-3 ####[facility] LABCLIA [id number] [place] [id number] [place] CNOVon 04-03-2024 CNOV Office Visit (AGUSTÍN ) XIANG WEST ([id number]) 1965 M Date Time Provider Department 04/03/24 3:30 PM RERE VALENTINO During your visit today, we recorded the following information about you: Temperature Pulse Blood pressure Weight 97.4 degrees 74/minute 148/84 115.5 kg Rere Valentino, NAVEEN.[facility] 04/24/2024 10:26 PM Signed Rheumatology FOLLOW UP VISIT Date of Service: 04/03/2024 Patient: Xiang West Medical Record: [id number] Primary Care Physician: Rere Aguiar MD Last [...] Location Hand-Left Hand-Left Knee-Right Knee-Right Knee-Right Description Aching;Throbbing;Sore ;Shooting Sharp;Stabbing;Throbb ing;Aching;Sore;Numbn ess;Tingling Aching Aching Aching;Sore Duration (#) 1 2 [...] blood G (more content not included)... Normal [facility] 04-03-2024 GORAN Telephone (AGUSTÍN) XIANG WEST ([id number]) 1965 M Date Time Provider Department 04/03/24 RERE VALENTINO During your visit today, we recorded the following information about you: Rere Valentino, NAVEEN.[facility] 04/06/2024 11:49 PM Signed Please call patient [...] CERAVE - BP WASH 2.5 % - oxyCODONE-acetaminoph en (PERCOCET) 5-325 mg tablet Take one(1) tablet [...] Status:Closed by TC RUIZ on 04/07/24 Normal [facility] CREATININE BLDon 04-03-2024 Creatinine [Mass/Vol] 1.07 mg/dL Normal 0.73-1.22 [facility] Comment on above: Order Comment: Trang crystal Type: BLOOD SPECIMENOrdering Facility: [facility] Address: [address] [place] [address] Performed By: #### 3 084-1, CRET1 ####[facility] [id number] [address] STATES OF [facility] Creatinine and Glomerular filtration rate.predicted panel (S/P/Bld) 79 mL/min/1.73m??? Normal >=60 [facility] Comment on above: Order Comment: Trang crystal Type: BLOOD SPECIMENOrdering Facility: [facility] Address: [address] [place] [address] Result Comment: Laxmi mated Glomerular Filtration Rate [...] GFR. Performed By: #### 3 084-1, CRET1 ####[facility] [id number] [place] [address] [place] PTH-Intact [facility] Parathyrin.intact [Mass/Vol] 42 pg/mL Normal 15-65 [facility] Comment on above: Order Comment: Speci men Type: BLOOD SPECIMENOrdering Facility: [facility] Address: [address] [place] [address] [place] [address] Performed By: #### 2 731-8 ####[facility] LABCLIA [id number] [facility] [place] [id number] [place] Urate SerPl-mCncon Urate [Mass/Vol] 4.3 mg/dL Normal 4.0-8.1 [facility] Comment on above: Order Comment: Speci men Type: BLOOD SPECIMENOrdering Facility: [facility] Address: [address] [place], [place] [address] [address] Performed By: #### 3 084-1, CRET1 ####[facility] [id number] [address] OF [facility] Sarmad 03-22-2024 GORAN Telephone (AGUSTÍN) XIANG WEST ([id number]) 1965 M Date Time Provider Department 03/22/24 [...] calling: self Call patient at: on cell [phone] (home) [phone] (cell) Was an appointment scheduled: No Closing statement: Results or non-symptom based questions: Thank you for calling [facility], your call will be returned within the [...] 30 Quantity: 30 Each Refills remainin Pharmacy: [id number] [place] [address] - [address] [facility] [id number] [place] [phone] Authorizing provider: Rere Valentino APRN.[facility] [address] [facility] [address] Pt should only be taking Allopurinol 200mg - 1 tab daily pt should continue on Losartan for his blood pressure prescribed by outside physician LOSARTAN POTASSIUM 50 MG TAB Sig: take 1 tablet by mouth once daily Dispensed: 03/20/2024 12:00 AM Unit strength: 50 mg Unit form: tablet Days supply: 90 Quantity: 90 Each Refills remainin Pharmacy: [facility] #[id number] [place] [address] [address] [facility] [phone] [place] [phone] Authorizing provider: Rere Aguiar [address] [facility] [address] [place] [id number] It also looks like pt was prescribed Prednisone for outside physician on 03/21/24 PREDNISONE 20 MG TABLET Sig: take 1 tablet by mouth once daily if needed Dispensed: 03/21/2024 12:00 AM Unit strength: 20 mg Unit form: tablet Days supply: 15 Quantity: 15 Each Refills remainin [id number] [place] [address] - [address] [facility] - [phone] [address] [address] [facility] [address] Authorizing provider: Rere Aguiar [address] [facility] [address] [place] [id number] After review : It doesn't look like pt picked up the 200mg tablet - only 100mg tablet -- Please verify pt's bottle with you to see what he actually has on hand . If he does not have the 200mg tablet on hand - we can send him a new prescription Rere Valentino APRN.W[employer]DER RAIL[employer] MECHANIC 03/22/2024 11:19 PM Signed I sent more allopurinol Please clarify meds as below mentions Also why is he taking more pred and what was this prescribed for Senia Thurston MA 03/23/2024 11:12 AM Signed Spoke with patient -- requesting that I call him back after 2pm --I route to Derm appt and did not have his med bottles to review Bethany Tee, MARIANA 03/23/2024 2:56 PM Signed -Pt returning call to office. Pt identified by name and date. Pt given message as detailed below and verbalized understanding. -Pt updated medications as detailed below. Prednisone--Pt takes this PRN for "knee pain"/states has not taken this recently Meloxicam--Pt knows [...] an issue with his hospital pharmacy in [place], so all prescriptions do need to go to his [facility] pharmacy. States the hospital pharmacy team was supposed to switch pharmacies for him for his allopurinol prescript (more content not included)... Normal [facility] CNOVon 03-15-2024 CNOV Office Visit (AGUSTÍN ) XIANG WEST ([id number]) 1965 Alfredo Date Time Provider Department 03/15/24 8:00 AM RERE VALENTINO During your visit today, we recorded the following information about you: Temperature Pulse Blood pressure Weight 98.3 degrees 67/minute 156/90 116.3 kg Rere Valentino, CONTINUOUS IMPROVEMENT FACILITATOR.[facility] 03/15/2024 10:52 PM Signed Rheumatology FOLLOW UP VISIT Date of Service: 03/15/2024 Patient: Xiang West Medical Record: [id number] Primary Care Physician: Rere Aguiar MD Last [...] Feeling much better than he as prior [facility] is where he goes Prescribed allopurinol 200mg [...] Location Comment Right middle finger Description Pressure;Tingling Aching;Throbbing;Sore ;Shooting Sharp;Stabbing;Throbb ing;Aching;Sore;Numbn ess;Tingling Aching Aching Duration (#) 2 1 2 [...] of Systems (more content not included)... Normal [facility] 03-15-2024 GORAN Telephone (AGUSTÍN) XIANG WEST ([id number]) 1965 Alfredo Date Time Provider Department 03/15/24 RERE VALENTINO During your visit today, we recorded the following information about you: Rere Valentino APRN.[employer] MECH[employer]IC 03/15/2024 10:32 PM Signed Please call [facility] and try to obtain knee aspiration records Maybe around 2017 Senia Thurston MA 03/17/2024 8:49 AM Signed called [facility] they are in process of faxing records to our office [phone] Senia Thurston MA 03/17/2024 9:01 AM Signed records received placed on Rere's desk for review Allergies As of Date: 03/15/2024 (No Known Allergies) Date Reviewed: 03/15/2024 Reviewed by: Rere Valentino, CONTINUOUS IMPROVEMENT FACILITATOR.WELDER RAILCAR MECHANIC - Fully Assessed Reason for Visit: Patient [...] CERAVE - BP WASH 2.5 % - oxyCODONE-acetaminoph en (PERCOCET) 5-325 mg tablet Take one(1) tablet [...] Encounter Status:Closed by RERE VALENTINO on 03/23/24 [facility] BRETT[place] [place] ([id number]) 1965 M Date Time Provider Department 03/15/24 RERE VALENTINO During your visit today, we recorded the following information about you: Miriam Robles 03/15/2024 2:39 PM Signed Pablo is calling Rere Valentino APRN.WELDER RAILCAR MECHANIC today to let her know that his pharmacy told him a prior authorization would be needed for colchicine 0.6 mg tablet. Please advise. Patient has been identified by name and birthdate. Duration of symptoms: N/A Person calling: self Call patient at: on cell [phone] (home) [phone] (cell) Was an appointment scheduled: No Closing statement: Results or non-symptom based questions: Thank you for calling [facility], your call will be returned within the next business day. Senia Lockett MA 03/15/2024 3:43 PM Signed PA was completed through Covermymeds awaiting determination Xiang West (Maher: [id number]) PA Rx #: [id number] Senia Thurston MA 03/16/2024 11:53 AM Signed Xiang West (Maher: [id number]) PA Rx #: [id number] Need Help? Call us at Outcome Approved on March 15 Your PA request for [id number] was approved for 365 days. The PA# assigned is [id number]. Authorization Expiration Date: 03/13/2025 Drug Colchicine 0.6MG tablets [facility] cloud logo Form [place] Medicaid [employer] Electronic PA Form (2016 [employer]) Original Claim Info [id number]:PA REQUIRED-CONTACT [employer] DESK @ [phone] ;[id number]:PRESCRIBER LICENSE NUMBER NOT ON FILE Senia Thurston MA 03/16/2024 11:53 AM Signed Pt notified sent notification to [facility] pharmacy as well Allergies As of Date: 03/15/2024 (No Known Allergies) Date Reviewed: 03/15/2024 Reviewed by: Rere Valentino APRN.WELDER RAILCAR MECHANIC - Fully Assessed Reason for Visit: prior [...] No other nsaids . With food. - oxyCODONE-acetaminoph en (PERCOCET) 5-325 mg tablet Take one(1) tablet [...] Encounter Status:Closed by SENIA THURSTON on 03/16/24 [facility] Erik 03-14-2024 CNOV Office Visit (GENSME ) XIANG WEST ([id number]) 1965 M Date Time Provider Department 03/14/24 [...] in the MR contrast administration guidelines link. oxyCODONE-acetaminoph en (PERCOCET) 5-325 mg tablet Take one(1) tablet [...] EXAM: BP 145/92 Pulse 64 Ht 6' 3" (1.91m) Wt 255 lb 11.2 oz (116.0kg) SpO2 100% BMI 31.96 kg/(m2). General: Well developed, well-nourished, in no distress HEENT: Normocephalic, atraumatic. Extraocular movements intact. Sclera are nonicteric. Neck: Very large firm mass involving the right neck and upper back measuring 15 x 9 cm. No overlying skin changes. This is immobi (more content not included)... [facility] ANTHONYN Telephone (AGUSTÍN) XIANG WEST ([id number]) 1965 M Date Time Provider Department 03/13/24 RERE VALENTINO During your visit today, we recorded the following information about you: Maribell Karina 03/13/2024 9:08 AM Signed Pablo is calling Rere Valentino APRN.ANTHONY today with concern regarding his R knee [...] calling: self Return call phone: on cell [phone] (home) [phone] (cell) Was an appointment scheduled: Yes: Date/Time: 03/15/2024 0800 Closing statement: Results or non-symptom based questions: Thank you for calling [facility], your call will be returned within the next business day. Karina Wilgor, PSS [place] POST (Patient Operations Support Team) Please note: Please do not re-route encounters back to this agent, please send to appropriate office pool. Agent works in operations center and cannot complete patient specific tasks. Senia Thurston MA 03/15/2024 3:33 PM Signed Completed PA from [facility] Xiang West (Maher: [id number]) PA Rx #: [id number] awaiting determination Allergies As of Date: 03/13/2024 (No Known Allergies) Date Reviewed: 02/02/2024 Reviewed by: Rere Valentino, CONTINUOUS IMPROVEMENT FACILITATOR.WELDER RAILCAR MECHANIC - Fully Assessed Reason for Visit: Patient [...] No other nsaids . With food. - oxyCODONE-acetaminoph en (PERCOCET) 5-325 mg tablet Take one(1) tablet [...] (None) Encounter Status:Closed by KARINA RAMIRES on 03/13/24 Normal [facility] No Panel InformationOrdered By: [facility] on 03-13-2024 Rubella IgG Antibody Reactive Nonreactive [facility] Comment on above: Antibody Results Int erpretation of Immune Status Non Reactive Presumed Non-Immune Equivocal Equivocal Reactive Presumed Immune Serum Varicella zoster virus IgG antibody assay by immunoassay (units/volume)Ordered By: [facility] on 03-13-2024 VZV IgG IA Qn (S) 1290 index Immune >165 [facility] Comment on above: Negative <135 Equivo leonid 135 - 165 Positive >165A positive result generally indicates exposure to thepathogen or administration of specific immunoglobulins,but it is not indication of active infection or stageof disease. Serum measles virus IgG anti body assay (units/volume)Ordered By: [employer] [facility] on 03-13-2024 MeV IgG Qn (S) > 300.0 AU/mL Immune >16.4 [facility] Comment on above: Negative <13.5 Equiv ocal 13.5 - 16.4 Positive >16.4Presence of antibodies to Rubeola is presumptive evidenceof immunity except when acute infection is suspected.Performed at: - [place] [place] [id number] [place], [place] [id number] Director: Brian Du PhD, Phone: [phone] Serum mumps virus IgG antibo dy assay (units/volume)Ordered By: [employer] [facility] on 03-13-2024 MuV IgG Qn (S) 271.0 AU/mL Immune >10.9 [facility] Comment on above: Negative <9.0 Equivo leonid 9.0 - 10.9 Positive >10.9A positive result generally indicates past exposure toMumps virus or previous vaccination. CBC W Auto Differential pane l (Bld)on 03-06-2024 Basophils (Bld) [#/Vol] 0.03 10*3/uL Normal <0.11 [facility] Comment on above: Order Comment: Speci men Type: BLOOD SPECIMENOrdering Facility: [facility] Address: [address] [place] [address] Performed By: #### 5 7021-8 ####[facility] LABCLIA [id number] [place] [address] [place] Basophils/100 WBC (Bld) 0.3 % Normal [facility] Comment on above: Order Comment: Speci men Type: BLOOD SPECIMENOrdering Facility: [facility] Address: [address] [place] [address] Performed By: #### 5 7021-8 ####[facility] LABCLIA [id number] [place] [address] [place] Differential cell count method Nom (Bld) Auto Normal [facility] Comment on above: Order Comment: Speci men Type: BLOOD SPECIMENOrdering Facility: [facility] Address: [address] [place] [address] Performed By: #### 5 7021-8 ####[facility] LABCLIA [id number] [place] [address] [place] Eosinophils (Bld) [#/Vol] 0.05 10*3/uL Normal <0.46 [facility] Comment on above: Order Comment: Speci men Type: BLOOD SPECIMENOrdering Facility: [facility] Address: [address] [place] [address] Performed By: #### 5 7021-8 ####[facility] LABCLIA [id number] [place] [address] [place] Eosinophils/100 WBC (Bld) 0.5 % Normal [facility] Comment on above: Order Comment: Speci men Type: BLOOD SPECIMENOrdering Facility: [facility] Address: [address] [place] [address] Performed By: #### 5 7021-8 ####[facility] LABCLIA [id number] [place] [address] [place] Erythrocyte distribution width (RBC) [Ratio] 14.2 % Normal 11.5-15.0 [facility] Comment on above: Order Comment: Speci men Type: BLOOD SPECIMENOrdering Facility: [facility] Address: [address] [place] [address] Performed By: #### 5 7021-8 ####[facility] LABIA [id number] [place] [address] [place] Hematocrit (Bld) [Volume fraction] 43.5 % Normal 39.0-51.0 [facility] Comment on above: Order Comment: Speci men Type: BLOOD SPECIMENOrdering Facility: [facility] Address: [address] [place] [address] Performed By: #### 5 7021-8 ####[facility] LABIA [id number] [place] [address] [place] Hemoglobin (Bld) [Mass/Vol] 14.1 g/dL Normal 13.0-17.0 [facility] Comment on above: Order Comment: Speci men Type: BLOOD SPECIMENOrdering Facility: [facility] Address: [address] [place] [address] Performed By: #### 5 7021-8 ####[facility] LABIA [id number] [place] [address] [place] Immature granulocytes (Bld) [#/Vol] 0.07 10*3/uL Normal <0.10 [facility] Comment on above: Order Comment: Speci men Type: BLOOD SPECIMENOrdering Facility: [facility] Address: [address] [place] [address] Performed By: #### 5 7021-8 ####[facility] LABIA [id number] [place] [address] [place] Immature granulocytes/100 WBC (Bld) 0.7 % Normal [facility] Comment on above: Order Comment: Speci men Type: BLOOD SPECIMENOrdering Facility: [facility] Address: [address] [place] [address] Performed By: #### 5 7021-8 ####[facility] LABCLIA [id number] [place] [address] [place] Lymphocytes (Bld) [#/Vol] 2.91 10*3/uL Normal 1.00-4.00 [facility] Comment on above: Order Comment: Speci men Type: BLOOD SPECIMENOrdering Facility: [facility] Address: [address] [place] [address] Performed By: #### 5 7021-8 ####[facility] LABCLIA [id number] [place] [address] [place] Lymphocytes/100 WBC (Bld) 30.6 % Normal [facility] Comment on above: Order Comment: Speci men Type: BLOOD SPECIMENOrdering Facility: [facility] Address: [address] [place] [address] Performed By: #### 5 7021-8 ####[facility] LABCLIA [id number] [place] [address] [place] MCH (RBC) [Entitic mass] 30.1 pg Normal 26.0-34.0 [facility] Comment on above: Order Comment: Speci men Type: BLOOD SPECIMENOrdering Facility: [facility] Address: [address] [place] [address] Performed By: #### 5 7021-8 ####[facility] LABCLIA [id number] [place] [address] [place] MCHC (RBC) [Mass/Vol] 32.4 g/dL Normal 30.5-36.0 [facility] Comment on above: Order Comment: Speci men Type: BLOOD SPECIMENOrdering Facility: [facility] Address: [address] [place] [address] Performed By: #### 5 7021-8 ####[facility] LABCLIA [id number] [place] [address] [place] MCV (RBC) [Entitic vol] 92.8 fL Normal 80.0-100.0 [facility] Comment on above: Order Comment: Speci men Type: BLOOD SPECIMENOrdering Facility: [facility] Address: [address] [place] [address] Performed By: #### 5 7021-8 ####[facility] LABCLIA [id number] [place] [address] [place] Monocytes (Bld) [#/Vol] 0.67 10*3/uL Normal <0.87 [facility] Comment on above: Order Comment: Speci men Type: BLOOD SPECIMENOrdering Facility: [facility] Address: [address] [place] [address] Performed By: #### 5 7021-8 ####[facility] LABCLIA [id number] [place] [address] [place] Monocytes/100 WBC (Bld) 7.1 % Normal [facility] Comment on above: Order Comment: Speci men Type: BLOOD SPECIMENOrdering Facility: [facility] Address: [address] [place] [address] Performed By: #### 5 7021-8 ####[facility] LABCLIA [id number] [place] [address] [place] Neutrophils (Bld) [#/Vol] 5.77 10*3/uL Normal 1.45-7.50 [facility] Comment on above: Order Comment: Speci men Type: BLOOD SPECIMENOrdering Facility: [facility] Address: [address] [place] [address] Performed By: #### 5 7021-8 ####[facility] LABCLIA [id number] [place] [address] [place] Neutrophils/100 WBC (Bld) 60.8 % Normal [facility] Comment on above: Order Comment: Speci men Type: BLOOD SPECIMENOrdering Facility: [facility] Address: [address] [place] [address] Performed By: #### 5 7021-8 ####[facility] LABCLIA [id number] [place] [address] [place] Nucleated RBC (Bld) [#/Vol] 10*3/uL Normal <0.01 [facility] Comment on above: Order Comment: Speci men Type: BLOOD SPECIMENOrdering Facility: [facility] Address: [address] [place] [address] Performed By: #### 5 7021-8 ####[facility] LABCLIA [id number] [place] [address] [place] Nucleated RBC/100 WBC (Bld) [Ratio] 0.0 /100 WBC Normal [facility] Comment on above: Order Comment: Speci men Type: BLOOD SPECIMENOrdering Facility: [facility] Address: [address] [place] [address] Performed By: #### 5 7021-8 ####[facility] LABCLIA [id number] [place] [address] [place] Platelet mean volume (Bld) [Entitic vol] 10.6 fL Normal 9.0-12.7 [facility] Comment on above: Order Comment: Speci men Type: BLOOD SPECIMENOrdering Facility: [facility] Address: [address] [place] [address] Performed By: #### 5 7021-8 ####[facility] LABCLIA [id number] [place] [address] [place] Platelets (Bld) [#/Vol] 311 10*3/uL Normal 150-400 [facility] Comment on above: Order Comment: Speci men Type: BLOOD SPECIMENOrdering Facility: [facility] Address: [address] [place] [address] Performed By: #### 5 7021-8 ####[facility] LABCLIA [id number] [address] [address] [place] RBC (Bld) [#/Vol] 4.69 10*6/uL Normal 4.20-6.00 [facility] Comment on above: Order Comment: Speci men Type: BLOOD SPECIMENOrdering Facility: [facility] Address: [address] [place] [address] Performed By: #### 5 7021-8 ####[facility] LABCLIA [id number] [place] [address] [place] WBC (Bld) [#/Vol] 9.50 10*3/uL Normal 3.70-11.00 [facility] Comment on above: Order Comment: Speci men Type: BLOOD SPECIMENOrdering Facility: [facility] Address: [address] [place] [address] Performed By: #### 5 7021-8 ####[facility] LABCLIA [id number] [place] [address] [place] Comprehensive metabolic 2000 panelon 03-06-2024 Albumin [Mass/Vol] 4.2 g/dL Normal 3.9-4.9 [facility] Comment on above: Order Comment: Speci men Type: BLOOD SPECIMENOrdering Facility: [facility] Address: [address] [place] [address] Performed By: #### 3 084-1, 86850-6 ####[facility] LABCLIA [id number] [place] [address] [place] ALP [Catalytic activity/Vol] 93 U/L Normal 38-113 [facility] Comment on above: Order Comment: Speci men Type: BLOOD SPECIMENOrdering Facility: [facility] Address: [address] [place] [address] Performed By: #### 3 084-1, 15013-5 ####[facility] LABCLIA [id number] [place] [address] [place] ALT [Catalytic activity/Vol] 18 U/L Normal 10-54 [facility] Comment on above: Order Comment: Speci men Type: BLOOD SPECIMENOrdering Facility: [facility] Address: [address] [place] [address] Performed By: #### 3 084-1, 19296-2 ####[facility] LABCLIA [id number] [place] [address] [place] Anion gap [Moles/Vol] 11 mmol/L Normal 9-18 [facility] Comment on above: Order Comment: Speci men Type: BLOOD SPECIMENOrdering Facility: [facility] Address: [address] [place] [address] Performed By: #### 3 084-1, 60243-7 ####[facility] LABCLIA [id number] [place] [address] [place] AST [Catalytic activity/Vol] 23 U/L Normal 14-40 [facility] Comment on above: Order Comment: Speci men Type: BLOOD SPECIMENOrdering Facility: [facility] Address: [address] [place] [address] Performed By: #### 3 084-1, 41068-8 ####[facility] LABCLIA [id number] [place] [address] [place] Bilirubin [Mass/Vol] 0.2 mg/dL Normal 0.2-1.3 [facility] Comment on above: Order Comment: Speci men Type: BLOOD SPECIMENOrdering Facility: [facility] Address: [address] [place] [address] Performed By: #### 3 084-1, 97223-5 ####[facility] LABCLIA [id number] [place] [address] [place] Calcium [Mass/Vol] 9.1 mg/dL Normal 8.5-10.2 [facility] Comment on above: Order Comment: Speci men Type: BLOOD SPECIMENOrdering Facility: [facility] Address: [address] [place] [address] Performed By: #### 3 084-1, 93252-8 ####[facility] LABCLIA [id number] [place] [address] [place] Chloride [Moles/Vol] 106 mmol/L High 97-105 [facility] Comment on above: Order Comment: Speci men Type: BLOOD SPECIMENOrdering Facility: [facility] Address: [address] [place] [address] Performed By: #### 3 084-1, 72921-7 ####[facility] LABCLIA [id number] [place] [address] [place] CO2 [Moles/Vol] 25 mmol/L Normal 22-30 [facility] Comment on above: Order Comment: Speci men Type: BLOOD SPECIMENOrdering Facility: [facility] Address: [address] [place] [address] Performed By: #### 3 084-1, 76684-1 ####[facility] LABCLIA [id number] [place] [address] [place] Creatinine [Mass/Vol] 1.03 mg/dL Normal 0.73-1.22 [facility] Comment on above: Order Comment: Speci men Type: BLOOD SPECIMENOrdering Facility: [facility] Address: [address] [place] [address] Performed By: #### 3 084-1, 53915-8 ####[facility] LABCLIA [id number] [place] [address] [place] Creatinine and Glomerular filtration rate.predicted panel (S/P/Bld) 83 mL/min/1.73m??? Normal >=60 [facility] Comment on above: Order Comment: Trang crystal Type: BLOOD SPECIMENOrdering Facility: [facility] Address: [address] [place] [address] Result Comment: Laxmi mated Glomerular Filtration Rate [...] actual GFR. Performed By: #### 3 084-1, 65165-4 ####[facility] LABIA [id number] [place] [address] [place] Glucose [Mass/Vol] 74 mg/dL Normal 74-99 [facility] Comment on above: Order Comment: Trang crystal Type: BLOOD SPECIMENOrdering Facility: [facility] Address: [address] [place] [address] Result Comment: The [place] [employer] (ADA) provides guidance for cutoff [...] Standards of Medical Care in Diabetes 2016, [place] [employer]. Diabetes Care. 2016.39(Suppl 1). Performed By: #### 3 084-1, 11463-7 ####[facility] LABIA [id number] [place] [address] [place] Potassium [Moles/Vol] 4.1 mmol/L Normal 3.7-5.1 [facility] Comment on above: Order Comment: Speci men Type: BLOOD SPECIMENOrdering Facility: [facility] Address: [address] [place], [place] [address] Performed By: #### 3 084-1, 76534-8 ####[facility] LABCLIA [id number] [address] [address] [place] Protein [Mass/Vol] 7.2 g/dL Normal 6.3-8.0 [facility] Comment on above: Order Comment: Speci men Type: BLOOD SPECIMENOrdering Facility: [facility] Address: [address] [place] [address] Performed By: #### 3 084-1, 98930-7 ####[facility] LABCLIA [id number] [place] [address] [place] Sodium [Moles/Vol] 142 mmol/L Normal 136-144 [facility] Comment on above: Order Comment: Speci men Type: BLOOD SPECIMENOrdering Facility: [facility] Address: [address] [place] [address] Performed By: #### 3 084-1, 02180-6 ####[facility] LABCLIA [id number] [place] [address] [place] Urea nitrogen [Mass/Vol] 17 mg/dL Normal 9-24 [facility] Comment on above: Order Comment: Speci men Type: BLOOD SPECIMENOrdering Facility: [facility] Address: [address] [place] [address] Performed By: #### 3 084-1, 95695-5 ####[facility] LABCLIA [id number] [place] [id number] [place] Urate SerPl-mCncon 4 Urate [Mass/Vol] 2.7 mg/dL Low 4.0-8.1 [facility] Comment on above: Order Comment: Speci men Type: BLOOD SPECIMENOrdering Facility: [facility] Address: [address] [place], [place] [address] Performed By: #### 3 084-1, 78135-7 ####[facility] ROSELIA [id number] [place]LE [place]ERNAL [place] [id number] [facility] Sarmad 02-26-2024 ANTHONYN Telephone (RHEULN) XIANG WEST ([id number]) 1965 M Date Time Provider Department 02/26/24 RERE VALENTINO [...] Date Reviewed: 02/02/2024 Reviewed by: Rere Valentino APRN.WELDER RAILCAR MECHANIC - Fully Assessed Reason for Visit: Results [...] OF 8 WEEKS, WITH A MEAL - oxyCODONE-acetaminoph en (PERCOCET) 5-325 mg tablet Take one(1) tablet [...] Encounter Status:Closed by [facility]IR[facility] RO[facility]ES [facility] GORAN Telephone (AGUSTÍN) XIANG WEST ([id number]) 1965 M Date Time Provider Department 02/25/24 RERE VALENTINO [...] feels is d/t Above med Rere Valentino APRN.WELDER RAILCAR MECHANIC 02/25/2024 10:56 AM Signed Yes he can stop due for recheck labs 03/04 Tc Ruiz MA 02/25/2024 11:14 AM Signed Spoke to pt aware of recommendations. Allergies As of Date: 02/25/2024 (No Known Allergies) Date Reviewed: 02/02/2024 Reviewed by: Rere Valentino APRN.WELDER RAILCAR MECHANIC - Fully Assessed Reason for Visit: Medication [...] OF 8 WEEKS, WITH A MEAL - oxyCODONE-acetaminoph en (PERCOCET) 5-325 mg tablet Take one(1) tablet [...] Date: 02/25/2024 (None) Encounter Status:Closed by TC RUZI on 02/25/24 Normal [facility] CT KNEE WO IVCON RTon 2023 [...] deposition. IMPRESSION: No findings to suggest gout. Patch Machine Operator: PSCKeisha Transcribe Date/Time: Feb 09 2024 12:46P Dictated by : JENN BOGGS MD This examination was interpreted and the report reviewed and electronically signed by: JENN BOGGS MD on Feb 09 2024 12:50PM EST [id number] Normal [facility] CT Knee - right WO contrasto n 02-09-2024 [facility] Sarmad 02-04-2024 GORAN Telephone (AGUSTÍN) XIANG WEST ([id number]) 1965 M Date Time Provider Department 02/04/24 RERE VALENTINO During your visit today, we recorded the following information about you: Senia Thurston MA 02/04/2024 10:23 AM Signed Called pt - left to return call Pt is on Rere's schedule for today @ 230pm , however we had just seen him in the office on 02/01 pt is to follow up in [facility] for repeat labs - Unsure reason [...] be canceled - pt aware Rere Valentino APRN.WELDER RAILCAR MECHANIC 02/08/2024 3:[address] right knee Auth # [id number] Dates approved 01/27/2024 -03/27/2024 Please schedule within these date Marilynn Adkins 02/08/2024 4:06 PM Signed Reviewed patients chart. Patient is scheduled CT knee for 02/09/24 at 12:45pm Allergies As of Date: 02/04/2024 (No Known Allergies) Date Reviewed: 02/02/2024 Reviewed by: Rere Valentino, CONTINUOUS IMPROVEMENT FACILITATOR.WELDER RAILCAR MECHANIC - Fully Assessed Reason for Visit: Appointment [...] OF 8 WEEKS, WITH A MEAL - oxyCODONE-acetaminoph en (PERCOCET) 5-325 mg tablet Take one(1) tablet [...] Status:Closed by RERE VALENTINO on 02/08/24 Normal [facility] C-REACTIVE PROTEIN (CRP)on 0 02-02-2024 CRP [Mass/Vol] 1.0 mg/dL High <0.9 mg/dL [facility] CNOVon 02-02-2024 CNOV Office Visit (AGUSTÍN ) XIANG WEST ([id number]) 1965 M Date Time Provider Department 02/02/24 10:30 AM RERE VALENTINO During your visit today, we recorded the following information about you: Temperature Pulse Blood pressure Weight 97.4 degrees 79/minute 146/89 109.5 kg Rere Valentino APRN.WELDER RAILCAR MECHANIC 02/02/2024 11:19 AM Addendum Continue prednisone mg for 1 month then stop No other nsaids With food If labs are normal We will increase allopurinol 200mg daily Recheck labs today and in 1 month Rere Valentino APRN.WELDER RAILCAR MECHANIC 02/28/2024 5:08 PM Signed Rheumatology FOLLOW UP [...] which included preparing to see the patient, [id number] patient care, completing clinical documentation, obtaining and/or reviewing separately obtained history, performing a medically appropriate examination, counseling and educating the patient/family/caregi marilu, and ordering medications, tests, or proceduresPortions of this note have been copied from my previous note and have been updated to reflect today's visit note February 02, 2024 all reflect current medical decision making from date of this visit. Rere Valentino APRN.WELDER RAILCAR MECHANIC cc: PCP: Rere Aguiar MD () [address] [place], [place] [id number] Subjective HISTORY OF PRESENT ILLNESS Only see [...] and other (more content not included)... Normal [facility] Sarmad 02-02-2024 ANTHONYN Telephone (AGUSTÍN) XIANG WEST ([id number]) 1965 M Date Time Provider Department 02/02/24 RERE VALENTINO During your visit today, we recorded the following information about you: Rere Valentino APRN.WELDER RAILCAR MECHANIC 02/02/2024 11:26 PM Signed Please call patient [...] patient to call office regarding below. Sapphire Ocampo RN 02/03/2024 12:09 PM Signed Patient returning call, [...] Reason for Visit: Results [95] Primary Visit Diagnosis:Hyperuricem ia [E79.0] Order(s):allopurinol (ZYLOPRIM) 200 mg tabletTake 1 [...] OF 8 WEEKS, WITH A MEAL - oxyCODONE-acetaminoph en (PERCOCET) 5-325 mg tablet Take one(1) tablet [...] Status:Closed by RERE VALENTINO on 02/08/24 Normal [facility] CREATININE BLDon 02-02-2024 Creatinine [Mass/Vol] 1.03 mg/dL 0.73 - 1.22 mg/dL [facility] Estimated Glomerular Filtration Rate 83 mL/min/1.73m >=60 mL/min/1.73m [facility] Creatinine [Mass/Vol] 1.03 mg/dL Normal 0.73-1.22 [facility] Comment on above: Order Comment: Trang crystal Type: BLOOD SPECIMENOrdering Facility: [facility] Address: [address] [place] [address] Performed By: #### 1 988-5, CRET1 ####[facility] LABCLIA [id number] [place] [address] [place] [facility] Creatinine and Glomerular filtration rate.predicted panel (S/P/Bld) 83 mL/min/1.73m??? Normal >=60 [facility] Comment on above: Order Comment: Trang crystal Type: BLOOD SPECIMENOrdering Facility: [facility] Address: [address] [place] [address] Result Comment: Laxmi mated Glomerular Filtration Rate [...] GFR. Performed By: #### 1 988-5, CRET1 ####[facility] LABCLIA [id number] [place] [address] [place] CRP SerPl-mCncon 02-02-2024 CRP [Mass/Vol] 1.0 mg/dL High <0.9 [facility] Comment on above: Order Comment: Speci men Type: BLOOD SPECIMENOrdering Facility: [facility] Address: [address] [place] [address] Performed By: #### 1 988-5, CRET1 ####[facility] LABCLIA [id number] [place] [address] [place] ESR Westergren method (Bld) [Velocity]on 02-02-2024 ESR (Bld) [Velocity] 34 mm/h High 0 - 15 mm/hr Cl [facility] ESR (Bld) [Velocity] 34 mm/h High 0-15 [facility] Comment on above: Order Comment: Speci men Type: BLOOD SPECIMENOrdering Facility: [facility] Address: [address] [place] [address] Performed By: #### 4 537-7 ####[facility] LABCLIA [id number] [place] [address] [place] No Panel Informationon 01-30 [facility] US FOOT/ANKLE SYNOVIAL SCREE N LTon 01-31-2024 [...] synovitis tenosynovitis in the feet or ankles. Patch Machine Operator: PSCB Transcribe Date/Time: Jan 31 2024 2:06P Dictated by : GRISEL BRANTLEY MD This examination was interpreted and the report reviewed and electronically signed by: GRISEL BRANTLEY MD on Jan 31 2024 4:16PM EST [id number] Normal [facility] US FOOT/ANKLE SYNOVIAL SCREE N RTon 01-31-2024 US [...] were saved to the permanent image archive. -2019 COMPARISON: None. FINDINGS: RIGHT SIDE: RIGHT MTP [...] synovitis tenosynovitis in the feet or ankles. Patch Machine Operator: PSYCHIATRICKeisha Transcribe Date/Time: Jan 31 2024 2:06P Dictated by : GRISEL BRANTLEY MD This examination was interpreted and the report reviewed and electronically signed by: GRISEL BRANTLEY MD on Jan 31 2024 4:16PM EST [id number] Normal [facility] US HAND/WRIST SYNOVIAL SCREE N LTon [...] or tenosynovitis in the hands or wrists. Patch Machine Operator: PSCB Transcribe Date/Time: Jan 31 2024 1:58P Dictated by : GRISEL BRANTLEY MD This examination was interpreted and the report reviewed and electronically signed by: GRISEL BRANTLEY MD on Jan 31 2024 4:13PM EST [id number] Normal [facility] HAND/WRIST SYNOVIAL SCREE N RTon 01-31-2024 US [...] were saved to the permanent image archive. -2019 COMPARISON: X-ray: 12/27/2023 FINDINGS: RIGHT SIDE: RIGHT [...] or tenosynovitis in the hands or wrists. Patch Machine Operator: PSCB Transcribe Date/Time: Jan 31 2024 1:58P Dictated by : GRISEL BRANTLEY MD This examination was interpreted and the report reviewed and electronically signed by: GRISEL BRANTLEY MD on Jan 31 2024 4:13PM EST [id number] Normal [facility] 01-20-2024 ANTHONYN Telephone (AGUSTÍN) XIANG WEST ([id number]) 1965 M Date Time Provider Department 01/20/24 RERE VALENTINO During your visit today, we recorded the following information about you: Rere Valentino, CONTINUOUS IMPROVEMENT FACILITATOR.WELDER RAILCAR MECHANIC 01/20/2024 9:13 PM Signed I tried to [...] Labs 01/30 CT 02/08 Please advise Rere Valentino, NAVEEN.WELDER RAILCAR MECHANIC 01/21/2024 10:29 AM Signed No may start prednisone now Labs in March CT as schedule d Senia Thurston MA 01/21/2024 1:23 PM Signed Notified patient of below, verbal understanding. Allergies As of Date: 01/20/2024 (No Known Allergies) Date Reviewed: 12/27/2023 Reviewed by: Rere Valentino, NAVEEN.WELDER RAILCAR MECHANIC - Fully Assessed Order(s):predniSONE (DELTASONE) 5 mg [...] 1 tablet by mouth every afternoon. - oxyCODONE-acetaminoph en (PERCOCET) 5-325 mg tablet Take one(1) tablet [...] Encounter Status:Closed by SENIA THURSTON on 01/21/24 [facility] 01-17-2024 ANTHONYN Telephone ([employer]) XIANG WEST ([id number]) 1965 M Date Time Provider Department 01/17/24 RERE VALENTINO During your visit today, we recorded the following information about you: Miriam Robles 01/17/2024 8:09 AM Signed Pablo is calling Rere Valentino APRN.ANTHONY today [...] calling: self Call patient at: on cell [phone] (home) [phone] (cell) Was an appointment scheduled: No Closing statement: Symptom Call: Thank you for calling [facility], your call is very important. A nurse [...] 3 weeks ago after last OV. Rere Valentino APRN.ANTHONY 01/18/2024 5:04 PM Addendum Pss - please schedule [employer] CT Nursing - patient will stop in office th 2:30pm to confirm joint swelling finger Does not have appointment We will take pictures of finger swelling Patient is unable to do this at home and send through [facility] Once swelling confirmed will start pred taper [...] Date Reviewed: 12/27/2023 Reviewed by: Rere Valentino APRN.WELDER RAILCAR MECHANIC - Fully Assessed Reason for Visit: Patient Question [[id number]] Primary Visit Diagnosis:Chronic pain of both knees [M25.561, M25.562, G89.29] Other Visit Diagnosis:Hyperuricem ia [E79.0] Order(s):CT KNEE WO IVCON RIGHT [[id number]] Order #: [id number] FUTURE Prescriptions as of 01/20/2024 - ergocalciferol [...] 1 tablet by mouth every afternoon. - oxyCODONE-acetaminoph en (PERCOCET) 5-325 mg tablet Take one(1) tablet every six(6) hours as needed. - amLODIPine (NORVASC) 10 mg tablet Take one(1) tablet daily. - predniSONE (DELTASONE) 10 mg tablet as directed - predniSONE (DELTASONE) 20 mg (more content not included)... Normal [facility] Sarmad 01-07-2024 GORAN Telephone (RULTTB) XIANG WEST ([id number]) 1965 Alfredo Date Time Provider Department 01/07/24 MITCH REDDY [...] exam on 01/31/24 : 12:45 PM at [facility]. Allergies As of Date: 01/07/2024 (No Known Allergies) Date Reviewed: 12/27/2023 Reviewed by: Rere Valentino APRN.WELDER RAILCAR MECHANIC - Fully Assessed Reason for Visit: Appointment [...] 1 tablet by mouth every afternoon. - oxyCODONE-acetaminoph en (PERCOCET) 5-325 mg tablet Take one(1) tablet [...] Status:Closed by TORRI LANDIN on 01/10/24 [facility] CNPN Telephone (MARKN) XIANG WEST ([id number]) 1965 M Date Time Provider Department 01/04/24 RERE VALENTINO During your visit today, we recorded the following information about you: Rere Valentino, CONTINUOUS IMPROVEMENT FACILITATOR.WELDER RAILCAR MECHANIC 01/04/2024 11:22 PM Signed Please call patient [...] Abs Lymph 1.00 - 4.00 k/uL 3.84 [place]% % 7.0 Abs [place] <0.87 k/uL 0.77 Eosin% % 0.0 Abs Eosin <0.46 k/uL 0.00 Baso% % 0.0 Abs Baso <0.11 k/uL 0.00 Myelo% % 0.9 Left Shift Present Platelet Estimate Adequate Red Cell Morph Reviewed: see results of individual morphologies Polychromasia Slight Ovalocytes Few DTYPE Manual Color Yellow Yellow Clarity Clear Clear Glucose, Urine Negative Negative Bilirubin, Urine Negative Negative Ketones, Urine Negative Trace (A) Specific [place], Ur 1.005 - 1.030 1.025 Hemoglobin/Blood,Ur Negative [...] coalition Vascular calcification seen on the xrays ------- Please send xrays to pcp for follow up Karina Ramires 01/07/2024 9:44 AM Signed Patient calling. Vitamin D Rx was sent to the wrong pharmacy. Please re-send to W (more content not included)... Normal [facility] 12-29-2023 CNPN Telephone (ORQ) XIANG WEST ([id number]) 1965 M Date Time Provider Department 12/29/23 RERE VALENTINO ORQ During your visit today, we recorded the following information about you: Cookie Mcclure 12/29/2023 2:06 PM Signed Pablo is calling Rere Valentino APRN.WELDER RAILCAR MECHANIC today to let provider know the patches [...] calling: self Call patient at: at home [phone] (home) [phone] (cell) Was an appointment scheduled: No Closing statement: Results or non-symptom based questions: Thank you for calling [facility], your call will be returned within the next business day. Cookie Mcclure Allergies As of Date: 12/29/2023 (No Known Allergies) Date Reviewed: 12/27/2023 Reviewed by: Rere Valentino APRN.WELDER RAILCAR MECHANIC - Fully Assessed Reason for Visit: Patient Update [1234] Prescriptions as of 01/02/2024 - allopurinol (ZYLOPRIM) 100 mg tablet Take one(1) tablet daily. - meloxicam (MOBIC) 7.5 mg tablet Take 1 tablet by mouth every afternoon. - oxyCODONE-acetaminoph en (PERCOCET) 5-325 mg tablet Take one(1) tablet [...] Status:Closed by RERE VALENTINO on 01/02/24 Normal [facility] 25(OH)D3 SerPl-mCncon 2023 25-hydroxyvitamin D3 [Mass/Vol] 7.1 ng/mL Low 31.0-80.0 [facility] Comment on above: Order Comment: Trang crystal Type: BLOOD SPECIMENOrdering Facility: [facility] Address: [address] [place] [address] Result Comment: Clas sification of 25 OH Vitamin D status: Deficiency/Insufficiency: < or = 30 ng/ml. Sufficiency/Optimal Levels: 31-80 ng/mL Toxicity: > 100 ng/mL. Test performed by chemiluminescent immunoassay. Performed By: #### 1 989-3 ####[facility] LABCLIA [id number] [place] [address] [place] VIRY BY IFA WITH REFLEXon Nuclear Ab Ql (S) Negative Normal Negative [facility] Comment on above: Order Comment: Trang crystal Type: BLOOD SPECIMENOrdering Facility: [facility] Address: [address] [place] [address] Result Comment: Anti -nuclear antibody test is used as an aid in diagnosis of systemic autoimmune diseases. Where positive and clinically warranted, follow-up using disease-specific testing is recommended. Low positive titers are not uncommon with advanced age, certain chronic infections, and malignancies among others. Test methodology: Indirect fluorescence immunoassay (IFA) using HEp-2 cells. Performed By: #### A NAIFR ####[facility] [id number] [address] OF [facility] BLOOD TB SCREENon 12-27-2023 M. tuberculosis tuberculin stim IFN-g Ql (Bld) Negative Normal [facility] Comment on above: Order Comment: Trang crystal Type: BLOOD SPECIMENOrdering Facility: [facility] Address: [address] [place] [address] Performed By: #### I NFTBP ####[facility] [id number] [address] STATES OF [facility] MITOGEN MINUS NIL >9.97 Normal >=0.50 [facility] Comment on above: Order Comment: Trang crystla Type: BLOOD SPECIMENOrdering Facility: [facility] Address: [address] [place] [address] Performed By: #### I NFTBP ####[facility] [id number] [address] TB GAMMA INTERPRETATION Infection with M . tuberculosis complex is unlikely. If latent tuberculosis infection is highly suspected, a negative result does not rule out the infection. Specimens from immunocompromised patients and those <5 years of age may show false negative results. In case of a contact investigation, please repeat 8-12 weeks after a known exposure. Normal [facility] Comment on above: Order Comment: Trang crystal Type: BLOOD SPECIMENOrdering Facility: [facility] Address: [address] [place] [address] Performed By: #### I NFTBP ####[facility] [id number] [address] TB NIL 0.03 IU/mL Normal <=8.00 [facility] Comment on above: Order Comment: Trang crystal Type: BLOOD SPECIMENOrdering Facility: [facility] Address: [address] [place] [address] Performed By: #### I NFTBP ####[facility] LABIA [id number] [place] [address] [place] TB1 AG MINUS NIL 0.00 IU/mL Normal <0.35 [facility] Comment on above: Order Comment: Speci men Type: BLOOD SPECIMENOrdering Facility: [facility] Address: [address] [place] [address] Performed By: #### I NFTBP ####[facility] LABIA [id number] [place] [address] [place] TB2 AG MINUS NIL 0.00 IU/mL Normal <0.35 [facility] Comment on above: Order Comment: Speci men Type: BLOOD SPECIMENOrdering Facility: [facility] Address: [address] [place] [address] Performed By: #### I NFTBP ####[facility] [id number] [place] [address] [place] C3 SerPl-mCncon 12-27-2023 Complement C3 [Mass/Vol] 145 mg/dL Normal 86-166 [facility] Comment on above: Order Comment: Speci men Type: BLOOD SPECIMENOrdering Facility: [facility] Address: [address] [place] [address] Performed By: #### 4 485-9, 99333-7, 1987-5, 2731-8 ####[facility] LABIA [id number] [place] [address] [place] C4 SerPl-mCncon 12-27-2023 Complement C4 [Mass/Vol] 42 mg/dL Normal 13-46 [facility] Comment on above: Order Comment: Speci men Type: BLOOD SPECIMENOrdering Facility: [facility] Address: [address] [place] [address] Performed By: #### 1 1572-5, 3084-1, 4498-2 ####[facility] LABCLIA [id number] [place] [address] [place] CBC W Auto Differential pane l (Bld)on 12-27-2023 Basophils (Bld) [#/Vol] 0.00 10*3/uL Normal <0.11 [facility] Comment on above: Order Comment: Speci men Type: BLOOD SPECIMENOrdering Facility: [facility] Address: [address] [place] [address] Performed By: #### 4 537-7, 06330-8 ####[facility] LABCLIA [id number] [place] [address] [place] Basophils/100 WBC (Bld) 0.0 % Normal [facility] Comment on above: Order Comment: Speci men Type: BLOOD SPECIMENOrdering Facility: [facility] Address: [address] [place] [address] Performed By: #### 4 537-7, 68622-0 ####[facility] LABCLIA [id number] [place] [address] [place] Differential cell count method Nom (Bld) Manual Normal [facility] Comment on above: Order Comment: Speci men Type: BLOOD SPECIMENOrdering Facility: [facility] Address: [address] [place] [address] Performed By: #### 4 537-7, 41315-8 ####[facility] LABCLIA [id number] [place] [address] [place] Eosinophils (Bld) [#/Vol] 0.00 10*3/uL Normal <0.46 [facility] Comment on above: Order Comment: Speci men Type: BLOOD SPECIMENOrdering Facility: [facility] Address: [address] [place] [address] Performed By: #### 4 537-7, 12920-1 ####[facility] LABCLIA [id number] [place] [address] [place] Eosinophils/100 WBC (Bld) 0.0 % Normal [facility] Comment on above: Order Comment: Speci men Type: BLOOD SPECIMENOrdering Facility: [facility] Address: [address] [place] [address] Performed By: #### 4 537-7, 83496-6 ####[facility] LABCLIA [id number] [place] [address] [place] Erythrocyte distribution width (RBC) [Ratio] 13.2 % Normal 11.5-15.0 [facility] Comment on above: Order Comment: Speci men Type: BLOOD SPECIMENOrdering Facility: [facility] Address: [address] [place] [address] Performed By: #### 4 537-7, 58319-2 ####[facility] LABCLIA [id number] [place] [address] [place] Hematocrit (Bld) [Volume fraction] 45.7 % Normal 39.0-51.0 [facility] Comment on above: Order Comment: Speci men Type: BLOOD SPECIMENOrdering Facility: [facility] Address: [address] [place] [address] Performed By: #### 4 537-7, 66652-7 ####[facility] LABCLIA [id number] [place] [address] [place] Hemoglobin (Bld) [Mass/Vol] 14.9 g/dL Normal 13.0-17.0 [facility] Comment on above: Order Comment: Speci men Type: BLOOD SPECIMENOrdering Facility: [facility] Address: [address] [place] [address] Performed By: #### 4 537-7, 42172-2 ####[facility] LABCLIA [id number] [place] [address] [place] Lymphocytes (Bld) [#/Vol] 3.84 10*3/uL Normal 1.00-4.00 [facility] Comment on above: Order Comment: Speci men Type: BLOOD SPECIMENOrdering Facility: [facility] Address: [address] [place] [address] Performed By: #### 4 537-7, 11395-0 ####[facility] LABCLIA [id number] [place] [address] [place] Lymphocytes/100 WBC (Bld) 35.1 % Normal [facility] Comment on above: Order Comment: Speci men Type: BLOOD SPECIMENOrdering Facility: [facility] Address: [address] [place] [address] Performed By: #### 4 537-7, 48014-3 ####[facility] LABCLIA [id number] [place] [address] [place] MCH (RBC) [Entitic mass] 30.0 pg Normal 26.0-34.0 [facility] Comment on above: Order Comment: Speci men Type: BLOOD SPECIMENOrdering Facility: [facility] Address: [address] [place] [address] Performed By: #### 4 537-7, 24267-2 ####[facility] LABIA [id number] [place] [address] [place] MCHC (RBC) [Mass/Vol] 32.6 g/dL Normal 30.5-36.0 [facility] Comment on above: Order Comment: Speci men Type: BLOOD SPECIMENOrdering Facility: [facility] Address: [address] [place] [address] Performed By: #### 4 537-7, 84074-1 ####[facility] LABCLIA [id number] [place] [address] [place] MCV (RBC) [Entitic vol] 92.0 fL Normal 80.0-100.0 [facility] Comment on above: Order Comment: Speci men Type: BLOOD SPECIMENOrdering Facility: [facility] Address: [address] [place] [address] Performed By: #### 4 537-7, 01309-1 ####[facility] LABCLIA [id number] [place] [address] [place] Monocytes (Bld) [#/Vol] 0.77 10*3/uL Normal <0.87 [facility] Comment on above: Order Comment: Speci men Type: BLOOD SPECIMENOrdering Facility: [facility] Address: [address] [place] [address] Performed By: #### 4 537-7, 22555-3 ####[facility] LABCLIA [id number] [place] [address] [place] Monocytes/100 WBC (Bld) 7.0 % Normal [facility] Comment on above: Order Comment: Speci men Type: BLOOD SPECIMENOrdering Facility: [facility] Address: [address] [place] [address] Performed By: #### 4 537-7, 43266-0 ####[facility] LABCLIA [id number] [place] [address] [place] MYELO% 0.9 % Normal [facility] Comment on above: Order Comment: Speci men Type: BLOOD SPECIMENOrdering Facility: [facility] Address: [address] [place] [address] Performed By: #### 4 537-7, 92592-1 ####[facility] LABCLIA [id number] [place] [address] [place] Neutrophils (Bld) [#/Vol] 6.24 10*3/uL Normal 1.45-7.50 [facility] Comment on above: Order Comment: Speci men Type: BLOOD SPECIMENOrdering Facility: [facility] Address: [address] [place] [address] Performed By: #### 4 537-7, 12077-4 ####[facility] LABCLIA [id number] [place] [address] [place] Neutrophils/100 WBC (Bld) 57.0 % Normal [facility] Comment on above: Order Comment: Speci men Type: BLOOD SPECIMENOrdering Facility: [facility] Address: [address] [place] [address] Performed By: #### 4 537-7, 22476-7 ####[facility] LABCLIA [id number] [place] [address] [place] Nucleated RBC (Bld) [#/Vol] 10*3/uL Normal <0.01 [facility] Comment on above: Order Comment: Speci men Type: BLOOD SPECIMENOrdering Facility: [facility] Address: [address] [place] [address] Performed By: #### 4 537-7, 35466-7 ####[facility] LABIA [id number] [place] [address] [place] Nucleated RBC/100 WBC (Bld) [Ratio] 0.0 /100 WBC Normal [facility] Comment on above: Order Comment: Speci men Type: BLOOD SPECIMENOrdering Facility: [facility] Address: [address] [place] [address] Performed By: #### 4 537-7, 35233-9 ####[facility] LABCLIA [id number] [place] [address] [place] Ovalocytes LM Ql (Bld) Few Normal [facility] Comment on above: Order Comment: Speci men Type: BLOOD SPECIMENOrdering Facility: [facility] Address: [address] [place] [address] Performed By: #### 4 537-7, 27564-9 ####[facility] LABIA [id number] [place] [address] [place] Platelet mean volume (Bld) [Entitic vol] 10.0 fL Normal 9.0-12.7 [facility] Comment on above: Order Comment: Speci men Type: BLOOD SPECIMENOrdering Facility: [facility] Address: [address] [place] [address] Performed By: #### 4 537-7, 05545-0 ####[facility] LABCLIA [id number] [place] [address] [place] Platelets (Bld) [#/Vol] 262 10*3/uL Normal 150-400 [facility] Comment on above: Order Comment: Speci men Type: BLOOD SPECIMENOrdering Facility: [facility] Address: [address] [place] [address] Performed By: #### 4 537-7, 79999-6 ####[facility] LABCLIA [id number] [place] [address] [place] Platelets Estimate (Bld) [#/Vol] Adequate Normal [facility] Comment on above: Order Comment: Speci men Type: BLOOD SPECIMENOrdering Facility: [facility] Address: [address] [place] [address] Performed By: #### 4 537-7, 86533-8 ####[facility] LABCLIA [id number] [place] [address] [place] Polychromasia LM Ql (Bld) Slight Normal [facility] Comment on above: Order Comment: Speci men Type: BLOOD SPECIMENOrdering Facility: [facility] Address: [address] [place] [address] Performed By: #### 4 537-7, 78235-8 ####[facility] LABCLIA [id number] [place] [address] [place] RBC (Bld) [#/Vol] 4.97 10*6/uL Normal 4.20-6.00 [facility] Comment on above: Order Comment: Speci men Type: BLOOD SPECIMENOrdering Facility: [facility] Address: [address] [place] [address] Performed By: #### 4 537-7, 07366-4 ####[facility] LABIA [id number] [place] [address] [place] RED CELL MORPH Reviewed: see result s of individual morphologies Normal [facility] Comment on above: Order Comment: Speci men Type: BLOOD SPECIMENOrdering Facility: [facility] Address: [address] [place] [address] Performed By: #### 4 537-7, 22394-4 ####[facility] [id number] [place] [address] [place] WBC (Bld) [#/Vol] 10.95 10*3/uL Normal 3.70-11.00 [facility] Comment on above: Order Comment: Speci men Type: BLOOD SPECIMENOrdering Facility: [facility] Address: [address] [place] [address] Performed By: #### 4 537-7, 82808-1 ####[facility] LABIA [id number] [place] [address] [place] WBC Left Shift Ql (Bld) Present [facility] Comment on above: Order Comment: Speci men Type: BLOOD SPECIMENOrdering Facility: [facility] Address: [address] [place] [address] Performed By: #### 4 537-7, 64931-6 ####[facility] [id number] [place] [address] [place] CNOVon 12-27-2023 CNOV Office Visit (GAUSTÍN ) XIANG WEST ([id number]) 1965 M Date Time Provider Department 12/27/23 11:00 AM RERE VALENTINO During your visit today, we recorded the following information about you: Temperature Pulse Blood pressure Weight 99.4 degrees 89/minute 140/86 111.6 kg Chicho Rere Fuentes, NAVEEN.WELDER RAILCAR 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 Xiang West is here today at request of Dr. Aguiar specifically for consultation of my opinion in regards to the chief complaint listed below. Correspondence will be shared today via the [employer] electronic health record or through regular mail, [...] No solid (more content not included)... Normal [facility] CRP SerPl-mCncon 12-27-2023 CRP [Mass/Vol] 1.5 mg/dL High <0.9 [facility] Comment on above: Order Comment: Speci men Type: BLOOD SPECIMENOrdering Facility: [facility] Address: [address] [place] [address] Performed By: #### 4 485-9, 84091-1, 1988-03, 2731-06 ####[facility] LABCLIA [id number] [place] [address] [place] Comprehensive metabolic 2000 panelon 12-27-2023 Albumin [Mass/Vol] 4.2 g/dL Normal 3.9-4.9 [facility] Comment on above: Order Comment: Speci men Type: BLOOD SPECIMENOrdering Facility: [facility] Address: [address] [place] [address] Performed By: #### 4 485-9, 01241-3, 2731-06 ####[facility] LABCLIA [id number] [place] [address] [place] ALP [Catalytic activity/Vol] 99 U/L Normal 38-113 [facility] Comment on above: Order Comment: Speci men Type: BLOOD SPECIMENOrdering Facility: [facility] Address: [address] [place] [address] Performed By: #### 4 485-9, 09678-3, 2731-06 ####[facility] LABCLIA [id number] [place] [id number] [place] ALT [Catalytic activity/Vol] 17 U/L Normal 10-54 [facility] Comment on above: Order Comment: Speci men Type: BLOOD SPECIMENOrdering Facility: [facility] Address: [address] [place] [address] Performed By: #### 4 485-9, 91991-9, 2731-06 ####[facility] LABCLIA [id number] [address] [address] [place] Anion gap [Moles/Vol] 12 mmol/L Normal 9-18 [facility] [facility] Comment on above: Order Comment: Speci men Type: BLOOD SPECIMENOrdering Facility: [facility] Address: [address] [place], [place] [address] Performed By: #### 4 485-9, 38434-2, 2731-06 ####[facility] LABCLIA [id number] [place] [id number] [place] AST [Catalytic activity/Vol] 15 U/L Normal 14-40 [facility] Comment on above: Order Comment: Speci men Type: BLOOD SPECIMENOrdering Facility: [facility] Address: [address] [place] [address] Performed By: #### 4 485-9, 74744-4, 2731-06 ####[facility] LABCLIA [id number] [place] [id number] [place] Bilirubin [Mass/Vol] 0.2 mg/dL Normal 0.2-1.3 [facility] Comment on above: Order Comment: Speci men Type: BLOOD SPECIMENOrdering Facility: [facility] Address: [address] [place], [place] [address] Performed By: #### 4 485-9, 77455-5, 2731-06 ####[facility] LABCLIA [id number] [address] [address] [place] Calcium [Mass/Vol] 8.9 mg/dL Normal 8.5-10.2 [facility] Comment on above: Order Comment: Speci men Type: BLOOD SPECIMENOrdering Facility: [facility] Address: [address] [place], [place] [address] Performed By: #### 4 485-9, 17868-6, 2731-06 ####[facility] LABCLIA [id number] [place] [id number] [place] Chloride [Moles/Vol] 101 mmol/L Normal 97-105 [facility] Comment on above: Order Comment: Speci men Type: BLOOD SPECIMENOrdering Facility: [facility] Address: [address] [place] [address] Performed By: #### 4 485-9, 08609-9, 1988-03, 2731-06 ####[facility] LABCLIA [id number] [place] [id number] [place] CO2 [Moles/Vol] 27 mmol/L Normal 22-30 [facility] Comment on above: Order Comment: Speci men Type: BLOOD SPECIMENOrdering Facility: [facility] Address: [address] [place] [address] Performed By: #### 4 485-9, 40066-0, 1988-03, 2731-06 ####[facility] LABCLIA [id number] [place] [address] [place] Creatinine [Mass/Vol] 1.32 mg/dL High 0.73-1.22 [facility] Comment on above: Order Comment: Speci men Type: BLOOD SPECIMENOrdering Facility: [facility] Address: [address] [place] [address] Performed By: #### 4 485-9, 74729-3, 1988-03, 2731-06 ####[facility] LABCLIA [id number] [place] [id number] [place] Creatinine and Glomerular filtration rate.predicted panel (S/P/Bld) 62 mL/min/1.73m??? Normal >=60 [facility] Comment on above: Order Comment: Speci men Type: BLOOD SPECIMENOrdering Facility: [facility] Address: [address] [place] [address] Result Comment: Laxmi mated Glomerular Filtration Rate [...] actual GFR. Performed By: #### 4 485-9, 78114-9, 2731-06 ####[facility] LABCLIA [id number] [address] [address] [place] Glucose [Mass/Vol] 91 mg/dL Normal 74-99 [facility] Comment on above: Order Comment: Trang crystal Type: BLOOD SPECIMENOrdering Facility: [facility] Address: [address] [place] [address] Result Comment: The [place] [employer] (ADA) provides guidance for cutoff [...] Standards of Medical Care in Diabetes 2016, [place] [employer]. Diabetes Care. 2016.39(Suppl 1). Performed By: #### 4 485-9, , 2731-06 ####[facility] LABCLIA [id number] [address] [address] [place] Potassium [Moles/Vol] 4.3 mmol/L Normal 3.7-5.1 [facility] Comment on above: Order Comment: Trang crystal Type: BLOOD SPECIMENOrdering Facility: [facility] Address: [address] [place] [address] Performed By: #### 4 485-9, 62520-0, 2731-06 ####[facility] LABCLIA [id number] [place] [address] [place] Protein [Mass/Vol] 6.8 g/dL Normal 6.3-8.0 [facility] Comment on above: Order Comment: Speci men Type: BLOOD SPECIMENOrdering Facility: [facility] Address: [address] [place] [address] Performed By: #### 4 485-9, 75258-3, 1988-03, 2731-06 ####[facility] LABCLIA [id number] [place] [address] [place] Sodium [Moles/Vol] 140 mmol/L Normal 136-144 [facility] Comment on above: Order Comment: Speci men Type: BLOOD SPECIMENOrdering Facility: [facility] Address: [address] [place] [address] Performed By: #### 4 485-9, 15818-9, 1988-03, 2731-06 ####[facility] LABCLIA [id number] [place] [address] [place] Urea nitrogen [Mass/Vol] 15 mg/dL Normal 9-24 [facility] Comment on above: Order Comment: Speci men Type: BLOOD SPECIMENOrdering Facility: [facility] Address: [address] [place] [address] Performed By: #### 4 485-9, 52870-2, 1988-03, 2731-06 ####[facility] LABCLIA [id number] [place] [address] [place] Cyclic citrullinated peptide IgG Qnon 12-27-2023 CCP ANTIBODY IGG QUALITATIVE Negative Normal Negative [facility] Comment on above: Order Comment: Speci men Type: BLOOD SPECIMENOrdering Facility: [facility] Address: [address] [place] [address] Performed By: #### 3 3935-8 ####[facility] LABCLIA [id number] [place] [address] [place] ESR Westergren method (Bld) [Velocity]on 12-27-2023 ESR (Bld) [Velocity] 34 mm/h High 0-15 [facility] Comment on above: Order Comment: Trang crystal Type: BLOOD SPECIMENOrdering Facility: [facility] Address: [address] [place] [address] Performed By: #### 4 537-7, 16650-0 ####[facility] LABIA [id number] [place] [address] [place] G-6-PD QUANTITATIVEon 2023 G6PD (RBC) [Catalytic activity/Mass] 11.9 U/g Hb Normal 9.8-15.5 [facility] Comment on above: Order Comment: [facility] Type: BLOOD SPECIMENOrdering Facility: [facility] Address: [address] [place] [address] Result Comment: This test was developed and its performance characteristics determined by [facility] Path[facility] and Laboratory Medicine [facility] (-PLMI). It has not been cleared or approved by the FDA. RT-[facility] is regulated under CLIA as qualified to perform high-complexity testing. This test is used for clinical purposes. It should not be regarded as investigational or for research. Performed By: #### Q TG6PD ####[facility] LABIA [id number] [place] [address] [place] HBV core Ab Ser Qlon 024 HBV core Ab Ql (S) Negative Normal Negative [facility] Comment on above: Order Comment: Specquinn crystal Type: BLOOD SPECIMENOrdering Facility: [facility] Address: [address] [place] [address] Result Comment: No e vidence of current or past infection with Hepatitis B virus. Should recent infection be suspected, repeat testing may be considered 3-4 weeks after this draw. Performed By: #### 5 195-3, 44844-2, 60740-6 ####[facility] LABIA [id number] [place] [address] [place] HBV surface Ab Ql (S)on 11-30 HBV surface Ab Qn (S) <8.00 Normal [facility] Comment on above: Order Comment: Speci men Type: BLOOD SPECIMENOrdering Facility: [facility] Address: [address] [place] [address] Result Comment: <8 m IU/mL: No serological evidence of immunity to Hepatitis B Virus. >/= 8 to <12 mIU/mL: No serological evidence of immunity to Hepatitis B Virus. >/= 12 mIU/mL: Consistent with serological evidence of immunity to Hepatitis B Virus. Performed By: #### 5 195-3, 37281-0, 48727-1 ####[facility] LABCLIA [id number] [place] [address] [place] HBV surface Ab Ser Qlon 11-30 HBV surface Ab Ql (S) Negative Normal [facility] Comment on above: Order Comment: Speci men Type: BLOOD SPECIMENOrdering Facility: [facility] Address: [address] [place] [address] Result Comment: No s erological evidence of immunity to Hepatitis B Virus. Performed By: #### 5 195-3, 62023-2, 28967-0 ####[facility] LABIA [id number] [place] [address] [place] HBV surface Ag Ser Qlon 11-30 HBV surface Ag Ql (S) Negative Normal Negative [facility] Comment on above: Order Comment: Speci men Type: BLOOD SPECIMENOrdering Facility: [facility] Address: [address] [place] [address] Performed By: #### 5 195-3, 71765-1, 88557-7 ####[facility] LABIA [id number] [place] [address] [place] HCV Ab Ser Qlon 12-27-2023 HCV Ab Ql (S) Negative Normal Negative [facility] Comment on above: Order Comment: Speci men Type: BLOOD SPECIMENOrdering Facility: [facility] Address: [address] [place] [address] Result Comment: The result suggests no evidence of active infection with Hepatitis C virus. Should recent infection be suspected, repeat testing may be considered 4-6 weeks after this draw. Performed By: #### 1 6128-1 ####[facility] LABCLIA [id number] [place] [id number] [place] PTH-Intact SerPl-ncon 11-30 Parathyrin.intact [Mass/Vol] 81 pg/mL High 15-65 [facility] Comment on above: Order Comment: Speci men Type: BLOOD SPECIMENOrdering Facility: [facility] Address: [address] [place] [address] Performed By: #### 4 485-9, 39529-5, 1987-5, 2731-8 ####[facility] LABCLIA [id number] [place] [address] [place] Rheumatoid fact SerPl-aCncon 12-27-2023 Rheumatoid factor Qn 10 [IU]/mL Normal <16 [facility] Comment on above: Order Comment: Speci men Type: BLOOD SPECIMENOrdering Facility: [facility] Address: [address] [place] [address] Performed By: #### 1 1572-5, 3084-1, 4498-2 ####[facility] LABCLIA [id number] [place] [id number] [place] Urate SerPl-mCncon 4 Urate [Mass/Vol] 8.3 mg/dL High 4.0-8.1 [facility] Comment on above: Order Comment: Speci men Type: BLOOD SPECIMENOrdering Facility: [facility] Address: [address] [place] [address] Performed By: #### 1 1572-5, 3084-1, 4498-2 ####[facility] LABCLIA [id number] [address] [address] [place] Urinalysis complete panel (U )on 12-27-2023 Bacteria LM.HPF (Urine sed) [#/Area] Negative Normal Negative [facility] Comment on above: Order Comment: Speci men Type: URINE SPECIMENOrdering Facility: [facility] Address: [address] [place] [address] Performed By: #### 2 4356-8 ####[facility] LABCLIA [id number] [place] [address] [place] Bilirubin Ql (U) Negative Normal Negative [facility] Comment on above: Order Comment: Speci men Type: URINE SPECIMENOrdering Facility: [facility] Address: [address] [place] [address] Performed By: #### 2 4356-8 ####[facility] LABCLIA [id number] [place] [address] [place] Clarity (Unsp spec) Clear Normal Clear [facility] Comment on above: Order Comment: Speci men Type: URINE SPECIMENOrdering Facility: [facility] Address: [address] [place] [address] Performed By: #### 2 4356-8 ####[facility] LABCLIA [id number] [address] [place] Color (U) Yellow Normal Yellow [facility] Comment on above: Order Comment: Speci men Type: URINE SPECIMENOrdering Facility: [facility] Address: [address] [place] [address] Performed By: #### 2 4356-8 ####[facility] LABCLIA [id number] [place] [address] [place] Epithelial cells LM.HPF (Urine sed) [#/Area] None Seen Normal [facility] Comment on above: Order Comment: Speci men Type: URINE SPECIMENOrdering Facility: [facility] Address: [address] [place] [address] Performed By: #### 2 4356-8 ####[facility] LABCLIA [id number] [place] [address] [place] Glucose Test strip (U) [Mass/Vol] Negative Normal Negative [facility] Comment on above: Order Comment: Speci men Type: URINE SPECIMENOrdering Facility: [facility] Address: [address] [place] [address] Performed By: #### 2 4356-8 ####[facility] LABCLIA [id number] [place] [address] [place] Hemoglobin Ql (U) Negative Normal Negative [facility] Comment on above: Order Comment: Speci men Type: URINE SPECIMENOrdering Facility: [facility] Address: [address] [place] [address] Performed By: #### 2 4356-8 ####[facility] LABCLIA [id number] [place] [address] [place] Hyaline casts (Urine sed) [#/Area] 0 /[LPF] Normal 0 /LPF [facility] Comment on above: Order Comment: Speci men Type: URINE SPECIMENOrdering Facility: [facility] Address: [address] [place] [address] Performed By: #### 2 4356-8 ####[facility] LABCLIA [id number] [place] [address] [place] Ketones Ql (U) Trace Abnormal Negative [facility] Comment on above: Order Comment: Speci men Type: URINE SPECIMENOrdering Facility: [facility] Address: [address] [place] [address] Performed By: #### 2 4356-8 ####[facility] LABCLIA [id number] [place] [address] [place] Leukocyte esterase Test strip Ql (U) Negative Normal Negative [facility] Comment on above: Order Comment: Speci men Type: URINE SPECIMENOrdering Facility: [facility] Address: [address] [place] [address] Performed By: #### 2 4356-8 ####[facility] LABCLIA [id number] [place] [address] [place] Nitrite Ql (U) Negative Normal Negative [facility] Comment on above: Order Comment: Speci men Type: URINE SPECIMENOrdering Facility: [facility] Address: [address] [place] [address] Performed By: #### 2 4356-8 ####[facility] LABCLIA [id number] [place] [address] [place] pH (U) 5.0 [pH] Normal <8.5 [facility] Comment on above: Order Comment: Speci men Type: URINE SPECIMENOrdering Facility: [facility] Address: [address] [place] [address] Performed By: #### 2 4356-8 ####[facility] LABCLIA [id number] [place] [address] [place] Protein (U) [Mass/Vol] Negative Normal Negative [facility] Comment on above: Order Comment: Speci men Type: URINE SPECIMENOrdering Facility: [facility] Address: [address] [place] [address] Performed By: #### 2 4356-8 ####[facility] LABCLIA [id number] [place] [address] [place] RBC LM.HPF (Urine sed) [#/Area] 0-2 /HPF Normal 0-2 /HPF [facility] Comment on above: Order Comment: Speci men Type: URINE SPECIMENOrdering Facility: [facility] Address: [address] [place] [address] Performed By: #### 2 4356-8 ####[facility] LABIA [id number] [place] [address] [place] Specific gravity (U) [Rel density] 1.025 Normal 1.005-1.030 [facility] Comment on above: Order Comment: Speci men Type: URINE SPECIMENOrdering Facility: [facility] Address: [address] [place] [address] Performed By: #### 2 4356-8 ####[facility] [id number] [place] [address] [place] Urobilinogen Ql (U) 0.2 EU/dL Normal 0.2-1.0 EU/dL [facility] Comment on above: Order Comment: Speci men Type: URINE SPECIMENOrdering Facility: [facility] Address: [address] [place] [address] Performed By: #### 2 4356-8 ####[facility] [id number] [place] [address] [place] WBC LM.HPF (Urine sed) [#/Area] 0-5 /HPF Normal 0-5 /HPF [facility] Comment on above: Order Comment: Speci men Type: URINE SPECIMENOrdering Facility: [facility] Address: [address] [place] [address] Performed By: #### 2 4356-8 ####[facility] [id number] [place] [address] [place] XR ANKLE 3V [...] tissues. IMPRESSION: 1. Bilateral talocalcaneal tarsal coalition. Patch Machine Operator: [facility] Transcribe Date/Time: Dec 27 2023 3:15P Dictated by : TAHIR YORK MD This examination was interpreted and the report reviewed and electronically signed by: TAHIR YORK MD on Dec 27 2023 3:18PM EST [id number] N Normal [facility] XR HAND 3V PA/LAT/OBL BILon 12-27-2023 [...] the right thumb. IMPRESSION: 1. 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 IMPRESSION: 1. Mild bilateral knee osteoarthritis Patch Machine Operator: [facility] Transcribe Date/Time: Dec 27 2023 3:18P Dictated by : TAHIR YORK MD This examination was interpreted and the report reviewed and electronically signed by: TAHIR YORK MD on Dec 27 2023 3:20PM EST [id number] N Normal [facility] cCP IgG SerPl-aCncon 024 Cyclic citrullinated peptide IgG Qn <15 Normal <20 [facility] Comment on above: Order Comment: Speci men Type: BLOOD SPECIMENOrdering Facility: [facility] Address: [address] [place] [address] Performed By: #### 3 3935-8 ####[facility] LABCLIA [id number] [address] [place] OF [facility] Absolute lymphocyte countOrd ered By: Christiane Martin on 11-29-2023 Lymphocytes Auto (Unsp spec) [#/Vol] 1.83 10*3/uL 0.83-4.51 [facility] Basophil percentageOrdered B y: Christiane Martin on 11-29-2023 Basophil percentage Not Reportable [facility] Basophils/100 WBC (Bld) 0.3 % 0-[address] [facility] Chloride [Moles/Vol] 110 mmol/L 98-107 [facility] Eosinophils/100 WBC (Bld) 0.3 % 0-5 [facility] Glucose [Mass/Vol] 98 mg/dL 74-106 [facility] Neutrophils (Bld) [#/Vol] 11.3 10*3/uL 2.0-7.7 [facility] Neutrophils/100 WBC (Bld) 78.4 % 47-70 [facility] Potassium [Moles/Vol] 4.3 mmol/L 3.5-5.1 [facility] Sodium [Moles/Vol] 137 mmol/L 136-145 [facility] WBC (Bld) [#/Vol] 14.4 10*3/uL 4.4-11.0 [facility] Blood erythrocytes count (nu mber/volume)Ordered By: Christiane Martin on 11-29-2023 RBC (Bld) [#/Vol] 4.18 10*6/uL 4.6-6.2 [facility] Blood hemoglobin measurement (mass/volume)Ordered By: Christiane Martin on 11-29-2023 Hemoglobin (Bld) [Mass/Vol] 12.9 g/dL 13.0-16.5 [facility] Blood lymphocytes/100 leukoc ytesOrdered By: Christiane Martin on 11-29-2023 Lymphocytes/100 WBC (Bld) 12.7 % 19-41 [facility] Blood monocytes/100 leukocyt esOrdered By: Christiane Martin on 11-29-2023 Monocytes/100 WBC (Bld) 7.7 % 0-[address] [facility] Blood platelet mean volumeOr dered By: Christiane Martin on 11-29-2023 Platelet mean volume (Bld) [Entitic vol] 9.3 fL 6.2-12.0 [facility] Determination of erythrocyte mean corpuscular volume (MCV)Ordered By: Christiane Martin on 11-29-2023 MCV (RBC) [Entitic vol] 92.1 fL 80-[address] [facility] Hematocrit Auto (Bld) [Volum e fraction]Ordered By: Christiane Martin on 11-29-2023 Hematocrit (Bld) [Volume fraction] 38.5 % 40-54 [facility] Laboratory - Chemistry and C hemistry - challengeOrdered By: Christiane Martin on 11-29-2023 CO2 [Moles/Vol] 24.0 mmol/L 21.0-32.0 [facility] Urea nitrogen/Creatinine [Mass ratio] 23.8 mg/mg 10-20 [facility] - Hematology and Cell countsOrdered By: Christiane Martin on 11-29-2023 Erythrocyte distribution width (RBC) [Entitic vol] 43.6 fL 35.1-43.9 [facility] Erythrocyte distribution width (RBC) [Ratio] 12.8 % 11.6-14.6 [facility] Immature granulocytes/100 WBC (Bld) 0.600 % 0.0-0.9 [facility] Comment on above: IG% - Immature Granu locytes (promyelocytes, myelocytes and metamyelocytes) > 1% indicates that a LEFT SHIFT is Present. MCH (RBC) [Entitic mass] 30.9 pg 27.0-32.0 [facility] Nucleated RBC/100 WBC (Bld) [Ratio] 0 % 0-5 [facility] MCHC Auto (RBC) [Mass/Vol]Or dered By: Christiane Martin on 11-29-2023 MCHC (RBC) [Mass/Vol] 33.5 g/dL 32-36 [facility] No Panel InformationOrdered By: Christiane Martin on 11-29-2023 Anti-Nuclear Antibody Screen Negative Negative [facility] Comment on above: Performed at: [facility] [employer] [place] [id number] Director: Brian Du PhD, Phone: [phone] [employer] Antibody Not Reportable [facility] Estimated Creatinine Clearance Calc 96.79 ml/min [facility] Estimated GFR (MDRD) Amer 102 mL/min >60 [facility] Comment on above: GFR Calc Estimated GFR (MDRD) Non-Af Amer 84 mL/min >60 [facility] Comment on above: Non- GFR Calc 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 Antibody Not Reportable [facility] Platelets bldOrdered By: Yamilex Martin on 11-29-2023 Platelets (Bld) [#/Vol] 428 10*3/uL 150-450 [facility] Serum DNA double strand anti body assay (units/volume)Ordered By: Christiane Martin on 11-29-2023 DNA double strand Ab Qn (S) Not Reportable [facility] Serum Denia-1 antibody assay (u nits/volume)Ordered By: Christiane Martin on 11-29-2023 Denia-1 extractable nuclear Ab Qn (S) Not Reportable [facility] Serum Scl-70 antibody assay (units/volume)Ordered By: Christiane Martin on 11-29-2023 SCL-70 extractable nuclear Ab Qn (S) Not Reportable [facility] Serum Baum antibody detecti onOrdered By: Christiane Martin on 11-29-2023 Baum extractable nuclear Ab Ql (S) Not Reportable [facility] Serum or plasma calcium neno urement (mass/volume)Ordered By: Christiane Martin on 11-29-2023 Calcium [Mass/Vol] 9.1 mg/dL 8.5-10.1 [facility] Serum or plasma creatinine m easurement (mass/volume)Ordered By: Christiane Martin on 11-29-2023 Creatinine [Mass/Vol] 0.97 mg/dL 0.70-1.30 [facility] Comment on above: The validity of the calculated GFR & GFRAA in patients over 70 years has not been determined. Clinical correlation is essential. Serum or plasma urea nitroge n measurement (mass/volume)Ordered By: Chrisitane Martin on 11-29-2023 Urea nitrogen [Mass/Vol] 23 mg/dL 7-18 [facility] Thin prep Papanicolaou smear with manual screeningOrdered By: Christiane Martin on 11-29-2023 Thin prep Papanicolaou smear with manual screening 3 5-15 [facility] Erythrocyte sedimentation ra teOrdered By: Christiane Martin on 11-28-2023 ESR (Bld) [Velocity] 113 mm/h 0-20 [facility] Serum or plasma C reactive p rotein measurement (mass/volume)Ordered By: Christiane Martin on 11-28-2023 CRP [Mass/Vol] 76.90 mg/L 0.0-3.0 [facility] Comment on above: C-Reactive Protein ( CRP) provides useful information for thediagnosis, therapy and monitoring of inflammatory processesand associated diseases. For the evaluation of Relative Riskfor Cardiovascular Disease, a High Sensitivity CRP (HSCRP)should be ordered. Absolute lymphocyte countOrd ered By: Rei German on 11-26-2023 Lymphocytes Auto (Unsp spec) [#/Vol] 2.00 10*3/uL 0.83-4.51 [facility] Basophil percentageOrdered B y: Rei German on 11-26-2023 Basophil percentage 0-5 SEEN /hpf 0-5 [facility] Basophils/100 WBC (Bld) 0.4 % 0-1 [facility] Bilirubin [Mass/Vol] 0.70 mg/dL 0.20-1.00 [facility] Comment on above: For patients on eltr ombopag therapy, use of Dimension [place] TBIL is not recommended. Chloride [Moles/Vol] 104 mmol/L 98-107 [facility] Eosinophils/100 WBC (Bld) 0.5 % 0-5 [facility] Glucose [Mass/Vol] 116 mg/dL 74-106 [facility] Comment on above: Fasting Glucose resu lt from 100 to 125 mg/dL suggests IMPAIRED HOMEOSTASIS per A.D.A. criteria. Neutrophils (Bld) [#/Vol] 6.8 10*3/uL 2.0-7.7 [facility] Neutrophils/100 WBC (Bld) 67.6 % 47-70 [facility] Potassium [Moles/Vol] 3.8 mmol/L 3.5-5.1 [facility] Protein [Mass/Vol] 9.2 g/dL 6.4-8.2 [facility] Sodium [Moles/Vol] 136 mmol/L 136-145 [facility] WBC (Bld) [#/Vol] 10.1 10*3/uL 4.4-11.0 [facility] Bilirubin Test strip Ql (U)O rdered By: Rei German on 11-26-2023 Bilirubin Ql (U) Negative Negative [facility] Blood erythrocytes count (nu mber/volume)Ordered By: Rei German on 11-26-2023 RBC (Bld) [#/Vol] 5.13 10*6/uL 4.6-6.2 [facility] Blood hemoglobin measurement (mass/volume)Ordered By: Rei German on 11-26-2023 Hemoglobin (Bld) [Mass/Vol] 16.0 g/dL 13.0-16.5 [facility] Blood lymphocytes/100 leukoc ytesOrdered By: Rei German on 11-26-2023 Lymphocytes/100 WBC (Bld) 19.9 % 19-41 [facility] Blood monocytes/100 leukocyt esOrdered By: Rei German on 11-26-2023 Monocytes/100 WBC (Bld) 10.4 % 0-10 [facility] Blood platelet mean volumeOr dered By: Rei German on 11-26-2023 Platelet mean volume (Bld) [Entitic vol] 10.2 fL 6.2-12.0 [facility] Determination of erythrocyte mean corpuscular volume (MCV)Ordered By: Rei German on 11-26-2023 MCV (RBC) [Entitic vol] 93.4 fL 80-[address] [facility] Hematocrit Auto (Bld) [Volum e fraction]Ordered By: Rei German on 11-26-2023 Hematocrit (Bld) [Volume fraction] 47.9 % 40-54 [facility] Ketones Test strip Ql (U)Ord ered By: Rei German on 11-26-2023 Ketones Ql (U) 15 mg/dl Negative [facility] Laboratory - Chemistry and C hemistry - challengeOrdered By: Rei German on 11-26-2023 ALP [Catalytic activity/Vol] 103 U/L 45-117 [facility] ALT [Catalytic activity/Vol] 24 U/L 16-61 [facility] CK [Catalytic activity/Vol] 126 U/L 39-308 [facility] CO2 [Moles/Vol] 20.0 mmol/L 21.0-32.0 [facility] Globulin (S) [Mass/Vol] 6.1 g/dL 2.2-4.[address] [facility] Urea nitrogen/Creatinine [Mass ratio] 17.5 mg/mg 10-20 [facility] Laboratory - Hematology and Cell countsOrdered By: Rei German on 11-26-2023 Erythrocyte distribution width (RBC) [Entitic vol] 44.3 fL 35.1-43.9 [facility] Erythrocyte distribution width (RBC) [Ratio] 12.9 % 11.6-14.6 [facility] Immature granulocytes/100 WBC (Bld) 1.200 % 0.0-0.9 [facility] Comment on above: IG% - Immature Granu locytes (promyelocytes, myelocytes and metamyelocytes) > 1% indicates that a LEFT SHIFT is Present. MCH (RBC) [Entitic mass] 31.2 pg 27.0-32.0 [facility] Nucleated RBC/100 WBC (Bld) [Ratio] 0 % 0-5 [facility] MCHC Auto (RBC) [Mass/Vol]Or dered By: Rei German on 11-26-2023 MCHC (RBC) [Mass/Vol] 33.4 g/dL 32-36 [facility] Mucus LM Ql (Urine sed)Order ed By: Rei German on 11-26-2023 Mucus Ql (Urine sed) 0 SEEN /hpf [facility] Nitrite Test strip Ql (U)Ord ered By: Rei German on 11-26-2023 Nitrite Ql (U) Negative Negative [facility] No Panel InformationOrdered By: Rei German on 11-26-2023 Estimated Creatinine Clearance Calc 46.94 ml/min [facility] Estimated GFR (MDRD) Amer 44 mL/min >60 [facility] Comment on above: GFR Calc Estimated GFR (MDRD) Non-Af Amer 36 mL/min >60 [facility] Comment on above: Non- GFR Calc Platelets bldOrdered By: Mike German on 11-26-2023 Platelets (Bld) [#/Vol] 432 10*3/uL 150-450 [facility] Protein Test strip Ql (U)Ord ered By: Rei German on 11-26-2023 Protein Ql (U) 30 mg/dl Negative [facility] Serum or plasma albumin neno urement (mass/volume)Ordered By: Rei German on 11-26-2023 Albumin [Mass/Vol] 3.1 g/dL 3.2-5.0 [facility] Serum or plasma albumin/glob ulin mass ratioOrdered By: Rei German on 11-26-2023 Albumin/Globulin [Mass ratio] 0.5 {ratio} 0.9-2.4 [facility] Serum or plasma calcium neno urement (mass/volume)Ordered By: Rei German on 11-26-2023 Calcium [Mass/Vol] 9.7 mg/dL 8.5-10.1 [facility] Serum or plasma creatinine m easurement (mass/volume)Ordered By: Rei German on 11-26-2023 Creatinine [Mass/Vol] 2.00 mg/dL 0.70-1.30 [facility] Comment on above: The validity of the calculated GFR & GFRAA in patients over 70 years has not been determined. Clinical correlation is essential. Serum or plasma urea nitroge n measurement (mass/volume)Ordered By: Rei German on 11-26-2023 Urea nitrogen [Mass/Vol] 35 mg/dL 7-18 [facility] Squamous epithelial cells de tection in urine sediment by light microscopyOrdered By: Rei German on 11-26-2023 Epithelial cells.squamous LM Ql (Urine sed) 0-5 SEEN /hpf 0-5 [facility] Thin prep Papanicolaou smear with manual screeningOrdered By: Rei German on 11-26-2023 Thin prep Papanicolaou smear with manual screening 22 U/L 15-37 [facility] Thin prep Papanicolaou smear with manual screening 12 5-15 [facility] Urine blood detectionOrdered By: Rei German on 11-26-2023 RBC Ql (U) 10 /ul Negative [facility] RBC Ql (U) 0-5 SEEN /hpf 0-5 [facility] Urine clarityOrdered By: Mike German on 11-26-2023 Clarity (U) Clear Clear [facility] Urine color determinationOrd ered By: Rei German on 11-26-2023 Color (U) Yellow Yellow [facility] Urine glucose detectionOrder ed By: Rei German on 11-26-2023 Glucose Ql (U) Normal mg/dl Normal [facility] Urine leukocyte esterase det ection by dipstickOrdered By: Rei German on 11-26-2023 Leukocyte esterase Test strip Ql (U) 25 /ul Negative [facility] Urine pHOrdered By: Rei boone on 11-26-2023 pH (U) 5.0 [pH] 5.0 - 8.0 [facility] Urine sediment bacteria coun t by microscopy (number/high power field)Ordered By: Rei German on 11-26-2023 Bacteria LM.HPF (Urine sed) [#/Area] 0 /[HPF] None Seen [facility] Urine specific gravity measu rementOrdered By: Rei German on 11-26-2023 Specific gravity (U) [Rel density] 1.025 1.002-1.030 [facility] Urobilinogen Auto test strip Ql (U)Ordered By: Rei German on 11-26-2023 Urobilinogen Ql (U) 4 mg/dl Normal [facility] Absolute lymphocyte countOrd ered By: Dr. Butler on 05-03-2023 Lymphocytes Auto (Unsp spec) [#/Vol] 1.72 10*3/uL 0.83-4.51 [facility] Basophil percentageOrdered B y: Dr. Butler on 05-03-2023 Basophils/100 WBC (Bld) 0.3 % 0-[address] [facility] Eosinophils/100 WBC (Bld) 0.1 % 0-5 [facility] Neutrophils (Bld) [#/Vol] 8.5 10*3/uL 2.0-7.7 [facility] Neutrophils/100 WBC (Bld) 78.9 % 47-70 [facility] WBC (Bld) [#/Vol] 10.7 10*3/uL 4.4-11.0 [facility] Blood erythrocytes count (nu mber/volume)Ordered By: Dr. Butler on 05-03-2023 RBC (Bld) [#/Vol] 4.68 10*6/uL 4.6-6.2 [facility] Blood hemoglobin measurement (mass/volume)Ordered By: Dr. Butler on 05-03-2023 Hemoglobin (Bld) [Mass/Vol] 14.3 g/dL 13.0-16.5 [facility] Blood lymphocytes/100 leukoc ytesOrdered By: Dr. Butler on 05-03-2023 Lymphocytes/100 WBC (Bld) 16.0 % 19-41 [facility] Blood monocytes/100 leukocyt esOrdered By: Dr. Butler on 05-03-2023 Monocytes/100 WBC (Bld) 3.3 % 0-[address] [facility] Blood platelet mean volumeOr dered By: Dr. Butler on 05-03-2023 Platelet mean volume (Bld) [Entitic vol] 10.4 fL 6.2-12.0 [facility] Determination of erythrocyte mean corpuscular volume (MCV)Ordered By: Dr. Butler on 05-03-2023 MCV (RBC) [Entitic vol] 92.9 fL 80-[address] [facility] Erythrocyte sedimentation ra teOrdered By: Dr. Butler on 05-03-2023 ESR (Bld) [Velocity] 24 mm/h 0-20 [facility] Hematocrit Auto (Bld) [Volum e fraction]Ordered By: Dr. Butler on 05-03-2023 Hematocrit (Bld) [Volume fraction] 43.5 % 40-54 [facility] Laboratory - Hematology and Cell countsOrdered By: Dr. Butler on 05-03-2023 Erythrocyte distribution width (RBC) [Entitic vol] 49.1 fL 35.1-43.9 [facility] Erythrocyte distribution width (RBC) [Ratio] 14.5 % 11.6-14.6 [facility] Immature granulocytes/100 WBC (Bld) 1.400 % 0.0-0.9 [facility] Comment on above: IG% - Immature Granu locytes (promyelocytes, myelocytes and metamyelocytes) > 1% indicates that a LEFT SHIFT is Present. MCH (RBC) [Entitic mass] 30.6 pg 27.0-32.0 [facility] Nucleated RBC/100 WBC (Bld) [Ratio] 0 % 0-5 [facility] MCHC Auto (RBC) [Mass/Vol]Or dered By: Dr. Butler on 05-03-2023 MCHC (RBC) [Mass/Vol] 32.9 g/dL 32-36 [facility] No Panel InformationOrdered By: Dr. Butler on 05-03-2023 Anti-Nuclear Antibody Screen Negative Negative [facility] Comment on above: Performed at: [address] Director: Brian Du PhD, Phone: [phone] Platelets bldOrdered By: Dr. Butler on 05-03-2023 Platelets (Bld) [#/Vol] 283 10*3/uL 150-450 [facility] Serum or plasma uric acid me asurement (mass/volume)Ordered By: Dr. Butler on 05-03-2023 Urate [Mass/Vol] 8.3 mg/dL 3.5-7.2 [facility] Comment on above: The drugs N-Acetylcy steine and Metamizole may falsely depress this assay. Serum rheumatoid factor dete ctionOrdered By: Dr. Butler on 05-03-2023 Rheumatoid factor Ql (S) < 10.0 IU/mL <15 [facility] Basophil percentageOrdered B y: Dr. Aguiar on 03-03-2023 Chloride [Moles/Vol] 110 mmol/L 98-107 [facility] Cholesterol [Mass/Vol] 169 mg/dL <200 [facility] Comment on above: <200 mg/dL Desirable 200-240 mg/dL Borderline >240 mg/dL High Risk Glucose [Mass/Vol] 91 mg/dL 74-106 [facility] Potassium [Moles/Vol] 3.7 mmol/L 3.5-5.1 [facility] Sodium [Moles/Vol] 139 mmol/L 136-145 [facility] Triglyceride [Mass/Vol] 333 mg/dL <[address] [facility] Comment on above: The drugs N-Acetylcy steine and Metamizole may falsely depress this assay.Serum Triglycerides Reference Interval Normal <150 mg/dL Borderline high 150 - 199 mg/dL High 200 - 499 mg/dL Very High > or = 500 mg/dL Laboratory - Chemistry and C hemistry - challengeOrdered By: Dr. Aguiar on 03-03-2023 CO2 [Moles/Vol] 22.0 mmol/L 21.0-32.0 [facility] Urea nitrogen/Creatinine [Mass ratio] 18.8 mg/mg 10-20 [facility] No Panel InformationOrdered By: Dr. Aguiar on 03-03-2023 Estimated GFR (MDRD) Amer 82 mL/min >60 [facility] Comment on above: GFR Calc Estimated GFR (MDRD) Non-Af Amer 68 mL/min >60 [facility] Comment on above: Non- GFR Calc Prostate Specific Antigen Total 0.96 ng/mL 0.0-4.0 [facility] Comment on above: This test was perfor med using the TPSA assay method [facility]. Values obtained with differentassay methods cannot be used interchangably.When changing PSA assays in the course of monitoring apatient, additional sequential testing should be carriedout to confirm baseline values. Urine Microalbumin/Creatinine Ratio 15.4 mg/g CRE <30 [facility] Serum or plasma calcium neno urement (mass/volume)Ordered By: Dr. Aguiar on 03-03-2023 Calcium [Mass/Vol] 8.6 mg/dL 8.5-10.1 [facility] Serum or plasma cholesterol in HDL measurement (mass/volume)Ordered By: Dr. Aguiar on 03-03-2023 Cholesterol in HDL [Mass/Vol] 48 mg/dL >40 [facility] Comment on above: The drugs N-Acetylcy steine and Metamizole may falsely depress this assay. Reference Range HDL <40 mg/dL Low HDL Cholesterol HDL >or= 60 mg/dL High HDL Cholesterol Serum or plasma cholesterol in VLDL measurement (mass/volume)Ordered By: Dr. Aguiar on 03-03-2023 Cholesterol in VLDL [Mass/Vol] 67 mg/dL 5-40 [facility] Serum or plasma creatinine m easurement (mass/volume)Ordered By: Dr. Aguiar on 03-03-2023 Creatinine [Mass/Vol] 1.17 mg/dL 0.70-1.30 [facility] Comment on above: The validity of the calculated GFR & GFRAA in patients over 70 years has not been determined. Clinical correlation is essential. Serum or plasma low density lipoprotein (LDL) cholesterol measurement (mass/volume)Ordered By: Dr. Aguiar on 03-03-2023 Cholesterol in LDL [Mass/Vol] 54 mg/dL 0-130 [facility] Serum or plasma urea nitroge n measurement (mass/volume)Ordered By: Dr. Aguiar on 03-03-2023 Urea nitrogen [Mass/Vol] 22 mg/dL 7-18 [facility] Thin prep Papanicolaou smear with manual screeningOrdered By: Dr. Aguiar on 03-03-2023 Thin prep Papanicolaou smear with manual screening 7 5-15 [facility] Thin prep Papanicolaou smear with manual screening 30.7 mg/L NO RANGE EST. [facility] Urine creatinine measurement (mass/volume)Ordered By: Dr. Aguiar on 03-03-2023 Creatinine (U) [Mass/Vol] 199.00 mg/dL NO RANGE EST. [facility] Absolute lymphocyte counton 02-09-2022 Lymphocytes Auto (Unsp spec) [#/Vol] 2.88 10*3/uL 0.83-4.51 [facility] Work Phone: Basophil percentageon 2021 Basophils/100 WBC (Bld) 0.4 % 0-[address] [facility] Work Phone: Chloride [Moles/Vol] 111 mmol/L 98-107 [facility] Work Phone: Eosinophils/100 WBC (Bld) 1.1 % 0-5 [facility] Work Phone: Glucose [Mass/Vol] 107 mg/dL 74-106 [facility] Work Phone: Comment on above: Fasting Glucose resu lt from 100 to 125 mg/dL suggests IMPAIRED HOMEOSTASIS per A.D.A. criteria. Neutrophils (Bld) [#/Vol] 5.5 10*3/uL 2.0-7.7 [facility] Work Phone: Neutrophils/100 WBC (Bld) 60.0 % 47-70 [facility] Work Phone: Potassium [Moles/Vol] 3.9 mmol/L 3.5-5.1 [facility] Work Phone: Sodium [Moles/Vol] 140 mmol/L 136-145 [facility] Work Phone: WBC (Bld) [#/Vol] 9.2 10*3/uL 4.4-11.0 [facility] Work Phone: Blood erythrocytes count (nu mber/volume)on 02-09-2022 RBC (Bld) [#/Vol] 5.34 10*6/uL 4.6-6.2 [facility] Work Phone: Blood hemoglobin measurement (mass/volume)on 02-09-2022 Hemoglobin (Bld) [Mass/Vol] 16.1 g/dL 13.0-16.5 [facility] Work Phone: Blood lymphocytes/100 leukoc yteson 02-09-2022 Lymphocytes/100 WBC (Bld) 31.4 % 19-41 [facility] Work Phone: Blood monocytes/100 leukocyt eson 02-09-2022 Monocytes/100 WBC (Bld) 6.8 % 0-[address] [facility] Work Phone: Blood platelet mean volumeon 02-09-2022 Platelet mean volume (Bld) [Entitic vol] 10.0 fL 6.2-12.0 [facility] Work Phone: Determination of erythrocyte mean corpuscular volume (MCV)on 02-09-2022 MCV (RBC) [Entitic vol] 89.9 fL 80-[address] [facility] Work Phone: Hematocrit Auto (Bld) [Volum e fraction]on 02-09-2022 Hematocrit (Bld) [Volume fraction] 48.0 % 40-54 [facility] Work Phone: INR in Blood by Coagulation assayon 02-09-2022 INR Coag (Bld) [Relative time] 0.9 {INR} [facility] Work Phone: Laboratory - Chemistry and C hemistry - challengeon 02-09-2022 CO2 [Moles/Vol] 24.0 mmol/L 21.0-32.0 [facility] Work Phone: Urea nitrogen/Creatinine [Mass ratio] 15.5 mg/mg 10-20 [facility] Work Phone: Laboratory - Coagulationon 0 02-09-2022 PT Coag (PPP) [Time] 11.9 s 11.7-14.9 [facility] Work Phone: [phone] Laboratory - Hematology and Cell countson 02-09-2022 Erythrocyte distribution width (RBC) [Entitic vol] 44.7 fL 35.1-43.9 [facility] Work Phone: [phone] Erythrocyte distribution width (RBC) [Ratio] 13.6 % 11.6-14.6 [facility] Work Phone: Immature granulocytes/100 WBC (Bld) 0.300 % 0.0-0.9 [facility] Work Phone: Comment on above: IG% - Immature Granu locytes (promyelocytes, myelocytes and metamyelocytes) > 1% indicates that a LEFT SHIFT is Present. MCH (RBC) [Entitic mass] 30.1 pg 27.0-32.0 [facility] Work Phone: Nucleated RBC/100 WBC (Bld) [Ratio] 0 % 0-5 [facility] Work Phone: [phone] MCHC Auto (RBC) [Mass/Vol]on 02-09-2022 MCHC (RBC) [Mass/Vol] 33.5 g/dL 32-36 [facility] Work Phone: No Panel Informationon 02-09 Estimated Creatinine Clearance Calc 87.49 ml/min [facility] Work Phone: [phone] Estimated GFR (MDRD) Amer 88 mL/min >60 [facility] Work Phone: [phone] Comment on above: GFR Calc Estimated GFR (MDRD) Non-Af Amer 73 mL/min >60 [facility] Work Phone: Comment on above: Non- GFR Calc Troponin I High Sensitivity 4 pg/mL 3.0-78.0 [facility] Work Phone: Comment on above: Please Note: New Sofia t Units and Gender Specific Reference Ranges. For more information see Policy Stat Procedure [place] High Sensitivity Troponin (TNIH) and attachments. Platelets bldon 02-09-2022 Platelets (Bld) [#/Vol] 296 10*3/uL 150-450 [facility] Work Phone: [phone] Serum or plasma calcium neno urement (mass/volume)on 02-09-2022 Calcium [Mass/Vol] 9.0 mg/dL 8.5-10.1 [facility] Work Phone: [phone] Serum or plasma creatinine m easurement (mass/volume)on 02-09-2022 Creatinine [Mass/Vol] 1.10 mg/dL 0.70-1.30 [facility] Work Phone: Comment on above: The validity of the calculated GFR & GFRAA in patients over 70 years has not been determined. Clinical correlation is essential. Serum or plasma urea nitroge n measurement (mass/volume)on 02-09-2022 Urea nitrogen [Mass/Vol] 17 mg/dL 7-18 [facility] Work Phone: [phone] Thin prep Papanicolaou smear with manual screeningon 02-09-2022 Thin prep Papanicolaou smear with manual screening 04 02-15 [facility] Work Phone: BASIC METABOLIC PANELon 07-30 Anion gap 12 mmol/L Normal 10 - 20 [facility] Comment on above: Performed By: #### B MP ####[id number] [place] [address] Bicarbonate (HCO3) 26 mmol/L Normal 21 - 32 [facility] Comment on above: Performed By: #### B MP ####[facility] [place] [address] Calcium 9.0 mg/dL Normal 8.6 - 10.6 [facility] Comment on above: Performed By: #### B MP ####[facility] [place] [address] Chloride 110 mmol/L High 98 - 107 [facility] Comment on above: Performed By: #### B MP ####[id number] [place] [address] Creatinine 1.14 mg/dL Normal 0.50 - 1.30 [facility] Comment on above: Performed By: #### B MP ####[facility] [place] [address] eGFR (non-black) mL/min/{1.73_m2} Normal >60 [facility] Comment on above: Result Comment: CALC ULATIONS OF ESTIMATED GFR ARE PERFORMED USING THE MDRD STUDY EQUATION FOR THE IDMS-TRACEABLE CREATININE METHODS. CLIN CHEM 2007;53:766-72 Performed By: #### B MP ####[facility] [place] [address] Glucose mass conc 66 mg/dL Low 74 - 99 [facility] Comment on above: Performed By: #### B MP ####[facility] [place] [address] Potassium molar conc 4.4 mmol/L Normal 3.5 - 5.3 [facility] Comment on above: Performed By: #### B MP ####[id number] [place] [address] Sodium 144 mmol/L Normal 136 - 145 [facility] Comment on above: Performed By: #### B MP ####[id number] [place] [address] Urea nitrogen 16 mg/dL Normal 6 - 23 [facility] Comment on above: Performed By: #### B MP ####[id number] [place] [address] C-REACTIVE PROTEINon 017 C reactive protein (CRP) 0.54 mg/dL Normal [facility] Comment on above: Result Comment: REF VALUE< 1.00 Performed By: #### C RP ####[facility] [place] [address] CBC AND DIFFERENTIALon 08-11 % AUTOMATED IMMATURE GRAN 0.6 % Normal 0.0 - 0.9 [facility] Comment on above: Result Comment: Perc ent differential counts (%) should be interpreted in the context of the absolute cell counts (cells/L). Performed By: #### C BCDF ####[facility] [place] [address] % NEUTROPHIL 56.6 % Normal 40.0 - 80.0 [facility] Comment on above: Performed By: #### C BCDF ####[id number] [place] [address] Basophils/100 WBC Auto (Bld) 0.04 x10E9/L Normal 0.00 - 0.10 [facility] Comment on above: Performed By: #### C BCDF ####[facility] [place] [address] Basophils/100 WBC Auto (Bld) 0.4 % Normal 0.0 - 2.0 [facility] Comment on above: Performed By: #### C BCDF ####[id number] [place] [address] Eosinophils 0.11 10*3/uL Normal 0.00 - 0.70 [facility] [place] Comment on above: Performed By: #### C BCDF ####[id number] [place] [address] Eosinophils/100 leukocytes 1.2 % Normal 0.0 - 6.0 [facility] Comment on above: Performed By: #### C BCDF ####[id number] [place] [address] Erythrocyte distribution width Auto Ratio (RBC) 14.4 % Normal 11.5 - 14.5 [facility] Comment on above: Performed By: #### C BCDF ####[id number] [place] [address] Erythrocytes (RBC) 4.76 x10E12/L Normal 4.50 - 5.90 [facility] Comment on above: Performed By: #### C BCDF ####[id number] [place] [address] Hematocrit (HCT) 43.9 % Normal 41.0 - 52.0 [facility] Comment on above: Performed By: #### C BCDF ####[facility] [place] [address] Hemoglobin mass conc (Bld) 14.4 g/dL Normal 13.5 - 17.5 [facility] Comment on above: Performed By: #### C BCDF ####[id number] [place] [address] Lymphocytes 2.87 10*3/uL Normal 1.20 - 4.80 [facility] [place] Comment on above: Performed By: #### C BCDF ####[id number] [place] [address] Lymphocytes/100 leukocytes 30.9 % Normal 13.0 - 44.0 [facility] Comment on above: Performed By: #### C BCDF ####[id number] [place] [address] MCHC mass conc (RBC) 32.8 g/dL Normal 32.0 - 36.0 [facility] Comment on above: Performed By: #### C BCDF ####[id number] [place] [address] MCV 92 fL Normal 80 - 100 [facility] Comment on above: Performed By: #### C BCDF ####[facility] [id number] [place] [address] Monocytes 0.96 10*3/uL Normal 0.10 - 1.00 [facility] Comment on above: Performed By: #### C BCDF ####[id number] [place] [address] Monocytes/100 leukocytes 10.3 % High 2.0 - 10.0 [facility] Comment on above: Performed By: #### C BCDF ####[id number] [place] [address] Neutrophils 5.24 10*3/uL Normal 1.20 - 7.70 [facility], [place] Comment on above: Performed By: #### C BCDF ####[id number] [place] [address] Nucleated erythrocytes 0.0 /100 WBC Normal 0.0-0.0 [facility] Comment on above: Performed By: #### C BCDF ####[id number] [place] [address] Platelets 213 10*3/uL Normal 150 - 450 [facility] Comment on above: Performed By: #### C BCDF ####[facility] [place] [address] WBC (Leukocytes) 9.3 10*3/uL Normal 4.4 - 11.3 [facility] Comment on above: Performed By: #### C BCDF ####[id number] [place] [address] ESR-WESTERGRENon 08-11-2017 ESR-WESTERGREN 10 mm/h Normal 0 - 20 [facility], [place] Comment on above: Performed By: #### E SRWS ####[id number] [place] [address] HEPATIC FUNCTION PANELon Alanine aminotransferase (ALT) 27 U/L Normal 10 - 52 [facility] Comment on above: Result Comment: Vanda ents treated with Sulfasalazine may generate falsely decreased results for ALT. Performed By: #### H EPFP ####[facility] [place] [address] Albumin 3.9 g/dL Normal 3.4 - 5.0 [facility] Comment on above: Performed By: #### H EPFP ####[id number] [place] [address] Alkaline phosphatase (ALP) 67 U/L Normal 33 - 120 [facility] Comment on above: Performed By: #### H EPFP ####[id number] [place] [address] Aspartate aminotransferase (AST) 19 U/L Normal 9 - 39 [facility] Comment on above: Performed By: #### H EPFP ####[id number] [place] [address] Bilirubin (direct) 0.1 mg/dL Normal 0.0 - 0.3 [facility] Comment on above: Performed By: #### H EPFP ####[facility] [place] [address] Bilirubin (total) 0.3 mg/dL Normal 0.0 - 1.2 [facility] Comment on above: Performed By: #### H EPFP ####[facility] [place] [address] Protein 6.8 g/dL Normal 6.4 - 8.2 [facility] Comment on above: Performed By: #### H EPFP ####[facility] [place] [address] URIC ACIDon 08-11-2017 Urate 8.9 mg/dL High 4.0 - 7.5 [facility] Comment on above: Result Comment: Sondra puncture immediately after or during the administration of Metamizole may lead to falsely low results. Testing should be performed immediately prior to Metamizole dosing. Performed By: #### U GERMÁN ####[id number] [place] [address] Vital Signs Date Time Vital Sign Value Performing Clinician Facility 04-03-2024 15:45-0400 Body mass index (BMI) [Ratio] 31.83 kg/m2 Rere Valentino APRN.[employer] Work Phone: [facility] 04-03-2024 15:45-0400 Body temperature 97.39 [degF] Rere Valentino APRN.[employer] Work Phone: [facility] 04-03-2024 15:45-0400 Body weight 115.5 kg Rere Valentino APRN.[employer] Work Phone: [facility] 04-03-2024 15:45-0400 Diastolic blood pressure 84 mm[Hg] Rere Valentino APRN.[employer] Work Phone: [facility] 04-03-2024 15:45-0400 Heart rate 74 /min Rere Valentino APRN.[employer] Work Phone: [facility] 04-03-2024 15:45-0400 SaO2% (BldA) [Mass fraction] 99 % Rere Valentino APRN.[employer] Work Phone: [facility] 04-03-2024 15:45-0400 Systolic blood pressure 148 mm[Hg] Rere Valentino APRN.[employer] Work Phone: [facility] 03-21-2024 13:32-0400 Body temperature 98.3 [degF] Dr. Rere Aguiar Work Phone: [facility] 03-21-2024 13:32-0400 Diastolic blood pressure 92 mm[Hg] Dr. Rere Aguiar Work Phone: [facility] 03-21-2024 13:32-0400 Heart rate 79 /min Dr. Rere Aguiar Work Phone: [facility] 03-21-2024 13:32-0400 Respiratory rate 17 /min Dr. Rere Aguiar Work Phone: [facility] 03-21-2024 13:32-0400 SaO2% (BldA) [Mass fraction] 100 % Dr. Rere Aguiar Work Phone: [facility] 03-21-2024 13:32-0400 Systolic blood pressure 171 mm[Hg] Dr. Rere Aguiar Work Phone: [facility] 03-21-2024 12:05-0400 Body height 187.[address] Rere Aguiar Work Phone: [facility] 03-21-2024 12:05-0400 Body mass index (BMI) [Ratio] 33.2 kg/m2 Dr. Rere Aguiar Work Phone: [facility] 03-21-2024 12:05-0400 Body weight 117.[address] Rere Aguiar Work Phone: [facility] 03-15-2024 09:19-0400 Diastolic blood pressure 90 mm[Hg] Rere Valentino APRN.[employer] Work Phone: [facility] 03-15-2024 09:19-0400 Heart rate 67 /min Rere Valentino APRN.[employer] Work Phone: [facility] 03-15-2024 09:19-0400 Systolic blood pressure 156 mm[Hg] Rere Valentino APRN.[employer] Work Phone: [facility] 03-15-2024 08:11-0400 Body temperature 98.29 [degF] Rere Valentino APRN.[employer] Work Phone: [facility] 03-15-2024 08:11-0400 Body weight 116.35 kg Rere Valentino APRN.[employer] Work Phone: [facility] 03-15-2024 08:11-0400 SaO2% (BldA) [Mass fraction] 100 % Rere Valentino APRN.[employer] Work Phone: [facility] 03-14-2024 12:50-0400 Body height 190.5 cm Peggy Hunter MD Work Phone: [facility] 03-14-2024 12:50-0400 Body weight 115.98 kg Peggy Hunter MD Work Phone: [facility] 03-14-2024 12:50-0400 Diastolic blood pressure 92 mm[Hg] Peggy Hunter MD Work Phone: [facility] 03-14-2024 12:50-0400 Heart rate 64 /min Peggy Hunter MD Work Phone: [facility] 03-14-2024 12:50-0400 SaO2% (BldA) [Mass fraction] 100 % Peggy Hunter MD Work Phone: [facility] 03-14-2024 12:50-0400 Systolic blood pressure 145 mm[Hg] Peggy Hunter MD Work Phone: [facility] 02-02-2024 10:25-0500 Body temperature 97.39 [degF] Rere Valentino APRN.[employer] Work Phone: [facility] 02-02-2024 10:25-0500 Body weight 109.55 kg Rere Valentino APRN.[employer] Work Phone: [facility] 02-02-2024 10:25-0500 Diastolic blood pressure 89 mm[Hg] Rere Valentino APRN.[employer] Work Phone: [facility] 02-02-2024 10:25-0500 Heart rate 79 /min Rere Valentino APRN.[employer] Work Phone: [facility] 02-02-2024 10:25-0500 SaO2% (BldA) [Mass fraction] 100 % Rere Valentino APRN.[employer] Work Phone: [facility] 02-02-2024 10:25-0500 Systolic blood pressure 146 mm[Hg] Rere Valentino APRN.[employer] Work Phone: [facility] 12-20-2023 03:08-0500 Diastolic blood pressure 84 mm[Hg] Dr. Rere Aguiar Work Phone: [facility] 12-20-2023 03:08-0500 Heart rate 91 /min Dr. Rere Aguiar Work Phone: [facility] 12-20-2023 03:08-0500 Respiratory rate 16 /min Dr. Rere Aguiar Work Phone: [facility] 12-20-2023 03:08-0500 SaO2% (BldA) [Mass fraction] 99 % Dr. Rere Aguiar Work Phone: [facility] 12-20-2023 03:08-0500 Systolic blood pressure 141 mm[Hg] Dr. Rere Aguiar Work Phone: [facility] 12-20-2023 02:05-0500 Body temperature 98.3 [degF] Dr. Rere Aguiar Work Phone: [phone] [place] [address] 12-20-2023 02:02-0500 Body mass index (BMI) [Ratio] 32.3 kg/m2 Dr. Rere Aguiar Work Phone: [facility] 12-20-2023 02:02-0500 Body weight 114.[address] Rere Aguiar Work Phone: [facility] 11-29-2023 08:58-0500 Body temperature 98.2 [degF] Dr. Rere Aguiar Work Phone: [facility] 11-29-2023 08:58-0500 Diastolic blood pressure 104 mm[Hg] Dr. Rere Aguiar Work Phone: [facility] 11-29-2023 08:58-0500 Heart rate 87 /min Dr. Rere Aguiar Work Phone: [facility] 11-29-2023 08:58-0500 Respiratory rate 16 /min Dr. Rere Aguiar Work Phone: [facility] 11-29-2023 08:58-0500 SaO2% (BldA) [Mass fraction] 100 % Dr. Rere Aguiar Work Phone: [facility] 11-29-2023 08:58-0500 Systolic blood pressure 154 mm[Hg] Dr. Rere Aguiar Work Phone: [facility] 11-29-2023 00:30-0500 Body mass index (BMI) [Ratio] 30.1 kg/m2 Dr. Rere Aguiar Work Phone: [facility] 11-29-2023 00:30-0500 Body weight 109.[address] Rere Aguiar Work Phone: [facility] 11-26-2023 14:54-0500 Body height 190.[address] Rere Aguiar Work Phone: [facility] 11-26-2023 13:01-0500 Diastolic blood pressure 74 mm[Hg] [facility] 11-26-2023 13:01-0500 Heart rate 78 /min [facility] 11-26-2023 13:01-0500 Respiratory rate 18 /min [facility] 11-26-2023 13:01-0500 SaO2% (BldA) [Mass fraction] 98 % [facility] 11-26-2023 13:01-0500 Systolic blood pressure 160 mm[Hg] [facility] 11-26-2023 05:45-0500 Body height 190.5 cm [facility] 11-26-2023 05:45-0500 Body mass index (BMI) [Ratio] 31.4 kg/m2 [facility] 11-26-2023 05:45-0500 Body temperature 99.7 [degF] [facility] 11-26-2023 05:45-0500 Body weight 113.9 kg [facility] 08-03-2023 08:49-0400 Diastolic blood pressure 69 mm[Hg] [facility] 08-03-2023 08:49-0400 Heart rate 72 /min [facility] 08-03-2023 08:49-0400 Respiratory rate 15 /min [facility] 08-03-2023 08:49-0400 SaO2% (BldA) [Mass fraction] 98 % [facility] 08-03-2023 08:49-0400 Systolic blood pressure 124 mm[Hg] [facility] 08-03-2023 07:54-0400 Body height 190.5 cm [facility] 08-03-2023 07:54-0400 Body mass index (BMI) [Ratio] 35.2 kg/m2 [facility] 08-03-2023 07:54-0400 Body temperature 97.3 [degF] [facility] 08-03-2023 07:54-0400 Body weight 127.91 kg [facility] 07-29-2023 13:18-0400 Body height 190.5 cm [facility] 07-29-2023 13:18-0400 Body mass index (BMI) [Ratio] 33.7 kg/m2 [facility] 07-29-2023 13:18-0400 Body temperature 97.1 [degF] [facility] 07-29-2023 13:18-0400 Body weight 122.46 kg [facility] 07-29-2023 13:18-0400 Diastolic blood pressure 93 mm[Hg] [facility] 07-29-2023 13:18-0400 Heart rate 107 /min [facility] 07-29-2023 13:18-0400 Respiratory rate 18 /min [facility] 07-29-2023 13:18-0400 SaO2% (BldA) [Mass fraction] 97 % [facility] 07-29-2023 13:18-0400 Systolic blood pressure 163 mm[Hg] [facility] 06-08-2023 09:12-0400 Body height 190.5 cm [facility] 06-08-2023 09:12-0400 Body mass index (BMI) [Ratio] 32.8 kg/m2 [facility] 06-08-2023 09:12-0400 Body temperature 97 [degF] [facility] 06-08-2023 09:12-0400 Body weight 118.93 kg [facility] 06-08-2023 09:12-0400 Diastolic blood pressure 93 mm[Hg] [facility] 06-08-2023 09:12-0400 Heart rate 107 /min [facility] 06-08-2023 09:12-0400 Respiratory rate 18 /min [facility] 06-08-2023 09:12-0400 SaO2% (BldA) [Mass fraction] 97 % [facility] 06-08-2023 09:12-0400 Systolic blood pressure 173 mm[Hg] [facility] 05-15-2023 06:33-0400 Body height 190.5 cm [facility] 05-15-2023 06:33-0400 Body mass index (BMI) [Ratio] 32.2 kg/m2 [facility] 05-15-2023 06:33-0400 Body temperature 97 [degF] [facility] 05-15-2023 06:33-0400 Body weight 117 kg [facility] 05-15-2023 06:33-0400 Diastolic blood pressure 103 mm[Hg] [facility] 05-15-2023 06:33-0400 Heart rate 109 /min [facility] 05-15-2023 06:33-0400 Respiratory rate 16 /min [facility] 05-15-2023 06:33-0400 SaO2% (BldA) [Mass fraction] 99 % [facility] 05-15-2023 06:33-0400 Systolic blood pressure 160 mm[Hg] [facility] 05-06-2023 20:31-0400 Body height 190.5 cm [facility] 05-06-2023 20:31-0400 Body mass index (BMI) [Ratio] 32.8 kg/m2 [facility] 05-06-2023 20:31-0400 Body temperature 98.8 [degF] [facility] 05-06-2023 20:31-0400 Body weight 118.97 kg [facility] 05-06-2023 20:31-0400 Diastolic blood pressure 96 mm[Hg] [facility] 05-06-2023 20:31-0400 Heart rate 80 /min [facility] 05-06-2023 20:31-0400 Respiratory rate 16 /min [facility] 05-06-2023 20:31-0400 SaO2% (BldA) [Mass fraction] 96 % [facility] 05-06-2023 20:31-0400 Systolic blood pressure 144 mm[Hg] [facility] 04-28-2023 15:18-0400 Diastolic blood pressure 97 mm[Hg] [facility] 04-28-2023 15:18-0400 Systolic blood pressure 167 mm[Hg] [facility] 04-28-2023 14:13-0400 Body height 190.5 cm [facility] 04-28-2023 14:13-0400 Body mass index (BMI) [Ratio] 32.6 kg/m2 [facility] 04-28-2023 14:13-0400 Body temperature 98 [degF] [facility] 04-28-2023 14:13-0400 Body weight 118.5 kg [facility] 04-28-2023 14:13-0400 Heart rate 84 /min [facility] 04-28-2023 14:13-0400 Respiratory rate 16 /min [facility] 04-28-2023 14:13-0400 SaO2% (BldA) [Mass fraction] 99 % [facility] 04-28-2023 14:04-0400 Body temperature 98.2 [degF] Niyah Bui APRN.[employer] Work Phone: [facility] 04-28-2023 14:04-0400 Body weight 118.03 kg Niyah Bui APRN.[employer] Work Phone: [facility] 04-28-2023 14:04-0400 Diastolic blood pressure 88 mm[Hg] Niyah Bui APRN.[employer] Work Phone: [facility] 04-28-2023 14:04-0400 Heart rate 98 /min Niyah Bui APRN.[employer] Work Phone: [facility] 04-28-2023 14:04-0400 Respiratory rate 18 /min Niyah Bui APRN.[employer] Work Phone: [facility] 04-28-2023 14:04-0400 SaO2% (BldA) [Mass fraction] 97 % Niyah Bui APRN.[employer] Work Phone: [facility] 04-28-2023 14:04-0400 Systolic blood pressure 146 mm[Hg] Niyah Hao MONTANEZ Work Phone: [facility] 04-21-2023 03:03-0400 Body mass index (BMI) [Ratio] 32.8 kg/m2 [facility] 04-21-2023 03:03-0400 Body temperature 98.1 [degF] [facility] 04-21-2023 03:03-0400 Body weight 119.3 kg [facility] 04-21-2023 03:03-0400 Diastolic blood pressure 86 mm[Hg] [facility] 04-21-2023 03:03-0400 Heart rate 64 /min [facility] 04-21-2023 03:03-0400 Respiratory rate 15 /min [facility] 04-21-2023 03:03-0400 SaO2% (BldA) [Mass fraction] 100 % [facility] 04-21-2023 03:03-0400 Systolic blood pressure 159 mm[Hg] [facility] 04-14-2023 18:49-0400 Body mass index (BMI) [Ratio] 35.6 kg/m2 [facility] 04-14-2023 18:49-0400 Body temperature 97.8 [degF] [facility] 04-14-2023 18:49-0400 Body weight 129.27 kg [facility] 04-14-2023 18:49-0400 Diastolic blood pressure 97 mm[Hg] [facility] 04-14-2023 18:49-0400 Heart rate 78 /min [facility] 04-14-2023 18:49-0400 Respiratory rate 16 /min [facility] 04-14-2023 18:49-0400 SaO2% (BldA) [Mass fraction] 98 % [facility] 04-14-2023 18:49-0400 Systolic blood pressure 152 mm[Hg] [facility] 03-18-2023 11:23-0400 Respiratory rate 18 /min [facility] 03-18-2023 09:33-0400 Body height 190.5 cm [facility] 03-18-2023 09:33-0400 Body mass index (BMI) [Ratio] 35.2 kg/m2 [facility] 03-18-2023 09:33-0400 Body temperature 97.6 [degF] [facility] 03-18-2023 09:33-0400 Body weight 127.91 kg [facility] 03-18-2023 09:33-0400 Diastolic blood pressure 87 mm[Hg] [facility] 03-18-2023 09:33-0400 Heart rate 88 /min [facility] 03-18-2023 09:33-0400 SaO2% (BldA) [Mass fraction] 100 % [facility] 03-18-2023 09:33-0400 Systolic blood pressure 152 mm[Hg] [facility] 03-01-2023 13:55-0400 Body height 187.96 cm [facility] 03-01-2023 13:55-0400 Body temperature 97 [degF] [facility] 03-01-2023 13:55-0400 Diastolic blood pressure 105 mm[Hg] [facility] 03-01-2023 13:55-0400 Heart rate 86 /min [facility] 03-01-2023 13:55-0400 Respiratory rate 14 /min [facility] 03-01-2023 13:55-0400 SaO2% (BldA) [Mass fraction] 96 % [facility] 03-01-2023 13:55-0400 Systolic blood pressure 162 mm[Hg] [facility] 01-26-2023 09:19-0500 Body height 190.5 cm [facility] 01-26-2023 09:19-0500 Body mass index (BMI) [Ratio] 33.3 kg/m2 [facility] 01-26-2023 09:19-0500 Body temperature 98 [degF] [facility] 01-26-2023 09:19-0500 Body weight 121.15 kg [facility] 01-26-2023 09:19-0500 Diastolic blood pressure 97 mm[Hg] [facility] 01-26-2023 09:19-0500 Heart rate 70 /min [facility] 01-26-2023 09:19-0500 Respiratory rate 18 /min [facility] 01-26-2023 09:19-0500 SaO2% (BldA) [Mass fraction] 100 % [facility] 01-26-2023 09:19-0500 Systolic blood pressure 164 mm[Hg] [facility] 12-27-2022 12:46-0500 Body height 190.5 cm [facility] 12-27-2022 12:46-0500 Body mass index (BMI) [Ratio] 34.9 kg/m2 [facility] 12-27-2022 12:46-0500 Body temperature 98 [degF] [facility] 12-27-2022 12:46-0500 Body weight 127 kg [facility] 12-27-2022 12:46-0500 Diastolic blood pressure 91 mm[Hg] [facility] 12-27-2022 12:46-0500 Heart rate 90 /min [facility] 12-27-2022 12:46-0500 Respiratory rate 16 /min [facility] 12-27-2022 12:46-0500 SaO2% (BldA) [Mass fraction] 99 % [facility] 12-27-2022 12:46-0500 Systolic blood pressure 164 mm[Hg] [facility] 12-25-2022 08:45-0500 Body height 190.5 cm [facility] 12-25-2022 08:45-0500 Body mass index (BMI) [Ratio] 34.9 kg/m2 [facility] 12-25-2022 08:45-0500 Body temperature 97.8 [degF] [facility] 12-25-2022 08:45-0500 Body weight 127 kg [facility] 12-25-2022 08:45-0500 Diastolic blood pressure 78 mm[Hg] [facility] 12-25-2022 08:45-0500 Heart rate 78 /min [facility] 12-25-2022 08:45-0500 Respiratory rate 16 /min [facility] 12-25-2022 08:45-0500 SaO2% (BldA) [Mass fraction] 99 % [facility] 12-25-2022 08:45-0500 Systolic blood pressure 138 mm[Hg] [facility] 11-22-2022 16:04-0500 Body height 190.5 cm [facility] Work Phone: 11-22-2022 16:04-0500 Body mass index (BMI) [Ratio] 34.3 kg/m2 [facility] 11-22-2022 16:04-0500 Body temperature 98.8 [degF] [facility] 11-22-2022 16:04-0500 Body weight 124.73 kg [facility] 11-22-2022 16:04-0500 Diastolic blood pressure 106 mm[Hg] [facility] 11-22-2022 16:04-0500 Heart rate 88 /min [facility] 11-22-2022 16:04-0500 Respiratory rate 15 /min [facility] 11-22-2022 16:04-0500 SaO2% (BldA) [Mass fraction] 99 % [facility] 11-22-2022 16:04-0500 Systolic blood pressure 175 mm[Hg] [facility] 10-27-2022 03:23-0500 Diastolic blood pressure 90 mm[Hg] [facility] 10-27-2022 03:23-0500 Heart rate 74 /min [facility] 10-27-2022 03:23-0500 Respiratory rate 16 /min [facility] 10-27-2022 03:23-0500 Systolic blood pressure 165 mm[Hg] [facility] 10-27-2022 03:01-0500 Body height 190.5 cm [facility] Work Phone: 10-27-2022 03:01-0500 Body mass index (BMI) [Ratio] 31.8 kg/m2 [facility] 10-27-2022 03:01-0500 Body temperature 98.4 [degF] [facility] 10-27-2022 03:01-0500 Body weight 115.5 kg [facility] 10-27-2022 03:01-0500 SaO2% (BldA) [Mass fraction] 97 % [facility] 10-23-2022 13:32-0500 Body mass index (BMI) [Ratio] 33.7 kg/m2 [facility] 10-23-2022 13:32-0500 Body temperature 97.8 [degF] [facility] 10-23-2022 13:32-0500 Body weight 122.46 kg [facility] 10-23-2022 13:32-0500 Diastolic blood pressure 76 mm[Hg] [facility] 10-23-2022 13:32-0500 Heart rate 78 /min [facility] 10-23-2022 13:32-0500 Respiratory rate 16 /min [facility] 10-23-2022 13:32-0500 SaO2% (BldA) [Mass fraction] 100 % [facility] 10-23-2022 13:32-0500 Systolic blood pressure 133 mm[Hg] [facility] 10-14-2022 01:19-0500 Body height 190.5 cm [facility] Work Phone: 10-14-2022 01:19-0500 Body mass index (BMI) [Ratio] 32 kg/m2 [facility] 10-14-2022 01:19-0500 Body temperature 97.7 [degF] [facility] 10-14-2022 01:19-0500 Body weight 116.3 kg [facility] 10-14-2022 01:19-0500 Diastolic blood pressure 97 mm[Hg] [facility] 10-14-2022 01:19-0500 Heart rate 69 /min [facility] 10-14-2022 01:19-0500 Respiratory rate 18 /min [facility] 10-14-2022 01:19-0500 SaO2% (BldA) [Mass fraction] 100 % [facility] 10-14-2022 01:19-0500 Systolic blood pressure 172 mm[Hg] [facility] 10-13-2022 11:20-0500 Body mass index (BMI) [Ratio] 33.7 kg/m2 [facility] 10-13-2022 11:20-0500 Body temperature 97.8 [degF] [facility] 10-13-2022 11:20-0500 Body weight 122.46 kg [facility] 10-13-2022 11:20-0500 Diastolic blood pressure 110 mm[Hg] [facility] 10-13-2022 11:20-0500 Heart rate 69 /min [facility] 10-13-2022 11:20-0500 Respiratory rate 16 /min [facility] 10-13-2022 11:20-0500 SaO2% (BldA) [Mass fraction] 100 % [facility] 10-13-2022 11:20-0500 Systolic blood pressure 179 mm[Hg] [facility] 09-15-2022 10:26-0400 Diastolic blood pressure 132 mm[Hg] [facility] 09-15-2022 10:26-0400 Systolic blood pressure 174 mm[Hg] [facility] 09-15-2022 09:14-0400 Body height 190.5 cm [facility] Work Phone: 09-15-2022 09:14-0400 Body mass index (BMI) [Ratio] 31.7 kg/m2 [facility] 09-15-2022 09:14-0400 Body temperature 97 [degF] [facility] 09-15-2022 09:14-0400 Body weight 115.2 kg [facility] 09-15-2022 09:14-0400 Heart rate 78 /min [facility] 09-15-2022 09:14-0400 Respiratory rate 14 /min [facility] 09-15-2022 09:14-0400 SaO2% (BldA) [Mass fraction] 98 % [facility] 08-29-2022 12:52-0400 Diastolic blood pressure 88 mm[Hg] [facility] 08-29-2022 12:52-0400 Heart rate 71 /min [facility] 08-29-2022 12:52-0400 Respiratory rate 16 /min [facility] 08-29-2022 12:52-0400 SaO2% (BldA) [Mass fraction] 99 % [facility] 08-29-2022 12:52-0400 Systolic blood pressure 129 mm[Hg] [facility] 08-29-2022 10:44-0400 Body height 190.5 cm [facility] Work Phone: 08-29-2022 10:44-0400 Body mass index (BMI) [Ratio] 30.9 kg/m2 [facility] 08-29-2022 10:44-0400 Body temperature 98.2 [degF] [facility] 08-29-2022 10:44-0400 Body weight 112.12 kg [facility] 04-04-2022 17:10-0400 Body height 190.5 cm [facility] Work Phone: 04-04-2022 17:10-0400 Body mass index (BMI) [Ratio] 37.5 kg/m2 [facility] Work Phone: 04-04-2022 17:10-0400 Body temperature 98.3 [degF] [facility] Work Phone: 04-04-2022 17:10-0400 Body weight 136.07 kg [facility] Work Phone: 04-04-2022 17:10-0400 Diastolic blood pressure 105 mm[Hg] [facility] Work Phone: 04-04-2022 17:10-0400 Heart rate 88 /min [facility] Work Phone: 04-04-2022 17:10-0400 Respiratory rate 16 /min [facility] Work Phone: 04-04-2022 17:10-0400 SaO2% (BldA) [Mass fraction] 97 % [facility] Work Phone: 04-04-2022 17:10-0400 Systolic blood pressure 177 mm[Hg] [facility] Work Phone: 04-01-2022 20:10-0400 Body height 190.5 cm [facility] Work Phone: 04-01-2022 20:10-0400 Body mass index (BMI) [Ratio] 37.5 kg/m2 [facility] Work Phone: 04-01-2022 20:10-0400 Body temperature 98.7 [degF] [facility] Work Phone: 04-01-2022 20:10-0400 Body weight 136.07 kg [facility] Work Phone: 04-01-2022 20:10-0400 Diastolic blood pressure 99 mm[Hg] [facility] Work Phone: 04-01-2022 20:10-0400 Heart rate 69 /min [facility] Work Phone: 04-01-2022 20:10-0400 Respiratory rate 17 /min [facility] Work Phone: 04-01-2022 20:10-0400 SaO2% (BldA) [Mass fraction] 99 % [facility] Work Phone: 04-01-2022 20:10-0400 Systolic blood pressure 180 mm[Hg] [facility] Work Phone: 03-14-2022 15:58-0400 Body temperature 98.9 [degF] [facility] Work Phone: 03-14-2022 15:58-0400 Diastolic blood pressure 91 mm[Hg] [facility] Work Phone: 03-14-2022 15:58-0400 Heart rate 73 /min [facility] Work Phone: 03-14-2022 15:58-0400 Respiratory rate 18 /min [facility] Work Phone: 03-14-2022 15:58-0400 SaO2% (BldA) [Mass fraction] 99 % [facility] Work Phone: 03-14-2022 15:58-0400 Systolic blood pressure 175 mm[Hg] [facility] Work Phone: 03-14-2022 15:00-0400 Body mass index (BMI) [Ratio] 32.1 kg/m2 [facility] Work Phone: 03-14-2022 15:00-0400 Body weight 116.7 kg [facility] Work Phone: 03-14-2022 03:55-0400 Body height 190.5 cm [facility] Work Phone: 03-14-2022 03:55-0400 Body mass index (BMI) [Ratio] 37.5 kg/m2 [facility] Work Phone: 03-14-2022 03:55-0400 Body temperature 98.5 [degF] [facility] Work Phone: 03-14-2022 03:55-0400 Body weight 136.07 kg [facility] Work Phone: 02-23-2022 14:33-0400 SaO2% (BldA) [Mass fraction] 98 % [facility] Work Phone: 02-23-2022 13:25-0400 Body height 190.5 cm [facility] Work Phone: 02-23-2022 13:25-0400 Body mass index (BMI) [Ratio] 36.2 kg/m2 [facility] Work Phone: 02-23-2022 13:25-0400 Body temperature 97.2 [degF] [facility] Work Phone: 02-23-2022 13:25-0400 Body weight 131.54 kg [facility] Work Phone: 02-23-2022 13:25-0400 Diastolic blood pressure 103 mm[Hg] [facility] Work Phone: 02-23-2022 13:25-0400 Heart rate 94 /min [facility] Work Phone: 02-23-2022 13:25-0400 Respiratory rate 14 /min [facility] Work Phone: 02-23-2022 13:25-0400 Systolic blood pressure 164 mm[Hg] [facility] Work Phone: 02-09-2022 16:15-0400 Diastolic blood pressure 105 mm[Hg] [facility] Work Phone: 02-09-2022 16:15-0400 Systolic blood pressure 176 mm[Hg] [facility] Work Phone: 02-09-2022 15:00-0400 Heart rate 87 /min [facility] Work Phone: 02-09-2022 15:00-0400 Respiratory rate 12 /min [facility] Work Phone: 02-09-2022 15:00-0400 SaO2% (BldA) [Mass fraction] 99 % [facility] Work Phone: 02-09-2022 13:42-0400 Body mass index (BMI) [Ratio] 37.5 kg/m2 [facility] Work Phone: 02-09-2022 13:42-0400 Body temperature 97.9 [degF] [facility] Work Phone: 02-09-2022 13:42-0400 Body weight 136.07 kg [facility] Work Phone: 11-18-2021 09:03-0500 Body mass index (BMI) [Ratio] 34.9 kg/m2 [facility] Work Phone: 11-18-2021 09:03-0500 Body temperature 97.5 [degF] [facility] Work Phone: 11-18-2021 09:03-0500 Body weight 127 kg [facility] Work Phone: 11-18-2021 09:03-0500 Diastolic blood pressure 85 mm[Hg] [facility] Work Phone: 11-18-2021 09:03-0500 Heart rate 92 /min [facility] Work Phone: 11-18-2021 09:03-0500 Respiratory rate 16 /min [facility] Work Phone: 11-18-2021 09:03-0500 SaO2% (BldA) [Mass fraction] 100 % [facility] Work Phone: 11-18-2021 09:03-0500 Systolic blood pressure 174 mm[Hg] [facility] Work Phone: Encounters Encounter Date Encounter Type Care Provider Facility Start: 09-25-2025 End: 09-25-2025 Emergency department patient visit [facility] Facility:[facility] Start: 04-24-2025 End: 04-24-2025 Refill Rere Valentino APRN.[employer] Work Phone: Rheumatology Comment on above: Refill Request Start: 02-07-2025 End: 02-07-2025 Refill Malik Mera CONTINUOUS IMPROVEMENT FACILITATOR.[employer] Work Phone: Rheumatology Comment on above: Refill Request Start: 09-20-2024 End: 09-20-2024 Telephone encounter Maci Dorsey DO Work Phone: Orthopaedics Comment on above: Patient Update Start: 05-29-2024 End: 05-29-2024 ambulatory MALIK MERA Facility:[facility] Start: 05-16-2024 End: 05-16-2024 ambulatory LUIS MIGUEL RHODES Facility:[facility] Start: 05-16-2024 End: 05-16-2024 Office outpatient new 45 minutes Luis Miguel Rhodes MD Work Phone: Orthopaedics Comment on above: Intramuscular lipoma (Primary Dx); Lipoma of right upper extremity; Localized swelling, mass and lump, trunk Start: 05-11-2024 End: 05-11-2024 Patient encounter procedure Maci Dorsey DO Work Phone: Orthopaedics Comment on above: Lipoma, unspecified site (Primary Dx) Start: 05-11-2024 End: 05-11-2024 ambulatory MACI DORSEY Facility:[facility] Start: 05-11-2024 End: 05-11-2024 Subsequent hospital visit by physician [facility] Keily Balir Work Phone: Radiology Comment on above: Right shoulder pain, unspecified chronicity [M25.511] Start: 05-02-2024 Orders Only Maci Dorsey DO Work Phone: Orthopaedics Comment on above: Right shoulder pain, unspecified chronicity (Primary Dx) Medication Problem Start: 04-25-2024 Telephone encounter Peggy Hunter MD Work Phone: General Surgery Comment on above: Appointment (Ortho) Start: 04-22-2024 Telephone encounter Peggy Hunter MD Work Phone: [place] Provider Adult Comment on above: Results Start: 04-21-2024 [facility] Start: 04-21-2024 End: 04-21-2024 Subsequent hospital visit by physician Mri [facility] (1.5t) Radiology Comment on above: Neck mass [R22.1] Start: 04-03-2024 End: 04-03-2024 ambulatory [facility] Facility:[facility] Start: 04-03-2024 End: 04-03-2024 Patient encounter procedure Rere Valentino APRN.[employer] Work Phone: Rheumatology Comment on above: Gout with manifestat ions (Primary Dx); Chronic pain of both knees; Vitamin D deficiency; Hyperuricemia Start: 04-03-2024 Telephone encounter Rere reeder CONTINUOUS IMPROVEMENT FACILITATOR.[employer] Work Phone: Rheumatology Start: 04-03-2024 End: 04-03-2024 ambulatory RERE ASHOK HARSHAD Facility:[facility] Start: 03-22-2024 Telephone encounter Rere reeder CONTINUOUS IMPROVEMENT FACILITATOR.[employer] Work Phone: Rheumatology Comment on above: Medication Problem Start: 03-21-2024 End: 03-21-2024 Emergency department patient visit Dr. Rere Aguiar Work Phone: [facility] Work Phone: Start: 03-15-2024 Telephone encounter Rere reeder CONTINUOUS IMPROVEMENT FACILITATOR.[employer] Work Phone: Rheumatology Comment on above: prior authorization Patient Update Start: 03-15-2024 End: 03-15-2024 ambulatory RERE AGUIAR Facility:[facility] Start: 03-15-2024 End: 03-15-2024 Patient encounter procedure Rere Valentino CONTINUOUS IMPROVEMENT FACILITATOR.[employer] Work Phone: Rheumatology Comment on above: Gout with manifestat ions (Primary Dx); Vitamin D deficiency; Chronic pain of both ankles; Chronic pain of both knees Start: 03-14-2024 End: 03-14-2024 ambulatory RERE AGUIAR Facility:[facility] Start: 03-14-2024 End: 03-14-2024 Patient encounter procedure Peggy Hunter MD Work Phone: General Surgery Comment on above: Neck mass (Primary D x) Start: 03-13-2024 Telephone encounter Rere reeder CONTINUOUS IMPROVEMENT FACILITATOR.[employer] Work Phone: Rheumatology Comment on above: Patient Update (I Only, Knee Pain) Start: 03-13-[address] Rere mckeon Work Phone: [facility] Start: 03-13-[address] Rere hernandez Work Phone: [facility] Start: 03-06-2024 End: 03-06-2024 ambulatory RERE AGUIAR Facility:[facility] Start: 02-26-2024 Telephone encounter Rere reeder CONTINUOUS IMPROVEMENT FACILITATOR.[employer] Work Phone: Rheumatology Comment on above: Results Start: 02-09-2024 ambulatory RERE AGUIAR Fac ility:[facility] Start: 02-09-2024 End: 02-09-2024 Subsequent hospital visit by physician [facility] Radiology Comment on above: Chronic pain of both knees [M25.561, M25.562, G89.29] Start: 02-04-2024 Telephone encounter Rere reeder CONTINUOUS IMPROVEMENT FACILITATOR.[employer] Work Phone: Rheumatology Comment on above: Appointment (? error with scheduling -- pt seen on 02/01 - return 1 mth for repeat labs -- CT is scheduled for 02/08) Start: 02-02-2024 Telephone encounter Rere reeder CONTINUOUS IMPROVEMENT FACILITATOR.[employer] Work Phone: Rheumatology Comment on above: Results Start: 02-02-2024 End: 02-02-2024 ambulatory [facility] Facility:[facility] Start: 02-02-2024 End: 02-02-2024 ambulatory [facility] Facility:[facility] Start: 02-02-2024 End: 02-02-2024 Patient encounter procedure Rere Valentino APRN.[employer] Work Phone: Rheumatology Comment on above: Hyperuricemia (Prima ry Dx); Joint swelling; Vitamin D deficiency; Pain in joint, multiple sites Start: 01-31-2024 End: 01-31-2024 ambulatory [facility] Facility:[facility] Start: 01-31-2024 End: 01-31-2024 Subsequent hospital visit by physician [facility] Rej Work Phone: Radiology Comment on above: Pain in joint, multi ple sites [M25.50] Start: 01-20-2024 Telephone encounter Rere reeder CONTINUOUS IMPROVEMENT FACILITATOR.[employer] Work Phone: Rheumatology Start: 01-17-2024 Telephone encounter Rere reeder CONTINUOUS IMPROVEMENT FACILITATOR.[employer] Work Phone: Rheumatology Comment on above: Patient Question Start: 01-07-2024 Telephone encounter Mitch Reddy ( Coord) Radiology Comment on above: Appointment Start: 01-04-2024 Telephone encounter Rere reeder CONTINUOUS IMPROVEMENT FACILITATOR.[employer] Work Phone: Rheumatology Comment on above: Results; Medication Problem (Rx Sent to Wrong Pharmacy) Start: 12-27-2023 End: 12-27-2023 ambulatory [facility] Facility:[facility] Start: 12-20-2023 End: 12-20-2023 Emergency department patient visit Dr. Rere Aguiar Work Phone: [facility] Work Phone: Start: 11-29-2023 Non-patient / Non-visit Dr. Madeline Aguiar Work Phone: [facility] Work Phone: Start: 11-28-2023 Non-patient / Non-visit Dr. Madeline Aguiar Work Phone: [facility] Work Phone: Start: 11-27-2023 Non-patient / Non-visit Dr. Madeline Aguiar Work Phone: [facility] Work Phone: Start: 11-26-2023 End: 11-29-2023 Evaluation and management of inpatient [facility] 3 Work Phone: Start: 11-26-2023 End: 11-29-[address] Reer Aguiar Work Phone: [facility] Work Phone: Start: 08-03-2023 End: 08-03-2023 Emergency department patient visit [facility] Work Phone: Start: 07-29-2023 End: 07-29-2023 Emergency department patient visit [facility] Work Phone: Start: 06-08-2023 End: 06-08-2023 Emergency department patient visit [facility] Work Phone: Start: 05-15-2023 End: 05-15-2023 Emergency department patient visit [facility] Start: 05-06-2023 End: 05-06-2023 Emergency department patient visit [facility] Start: 05-03-2023 End: 05-03-2023 ambulatory [facility] Work Phone: Start: 05-03-2023 End: 05-03-2023 Patient encounter procedure [facility] Start: 04-28-2023 End: 04-28-2023 [facility] Start: 04-28-2023 End: 04-28-2023 Patient encounter procedure Niyah Bui APRN.[facility] Work Phone: [facility] Comment on above: Pain (Primary Dx) Start: 04-21-2023 End: 04-21-2023 [facility] Start: 04-14-2023 End: 04-14-2023 Emergency department patient visit [facility] Start: 03-18-2023 End: 03-18-2023 [facility] Start: 03-03-2023 End: 03-03-2023 ambulatory [facility] Work Phone: Start: 03-03-2023 End: 03-03-2023 Patient encounter procedure [facility] Start: 03-01-2023 End: 03-01-2023 Emergency department patient visit [facility] Start: 01-26-2023 End: 01-26-2023 [facility] Start: 12-27-2022 End: 12-27-2022 [facility] Start: 12-25-2022 End: 12-25-2022 [facility] Start: 11-22-2022 End: 11-22-2022 Emergency department patient visit [facility] Start: 10-27-2022 End: 10-27-2022 Emergency department patient visit [facility] Start: 10-23-2022 End: 10-23-2022 [facility] Start: 10-14-2022 End: 10-14-2022 [facility] Start: 10-13-2022 End: 10-13-2022 [facility] Start: 09-15-2022 End: 09-15-2022 Emergency department patient visit [facility] Start: 08-29-2022 End: 08-29-2022 Emergency department patient visit [facility] Start: 04-21-2022 End: 04-21-2022 Patient encounter procedure [facility]Cat Scan, [facility] Start: 04-04-2022 End: 04-04-2022 Emergency department patient visit [facility] Start: 04-01-2022 End: 04-01-2022 Emergency department patient visit [facility] Start: 03-31-2022 End: 03-31-2022 Patient encounter procedure [facility], [place] Start: 03-14-2022 End: 03-14-2022 Emergency department patient visit [facility] Start: 03-14-2022 End: 03-14-2022 Emergency department patient visit [facility] Start: 02-23-2022 End: 02-23-2022 Emergency department patient visit [facility] Start: 02-09-2022 End: 02-09-2022 Emergency department patient visit [facility] Start: 12-22-2021 End: 12-22-2021 Discharged Recurring [facility]Physical Therapy Start: 11-18-2021 End: 11-18-2021 Emergency department patient visit [facility] Start: 10-12-2017 Ambulatory Keyana Abebe Facility:[facility] Start: 08-10-2017 Ambulatory Keyana Asia Abebe Facility:[facility] Start: 07-20-2017 Ambulatory Keyana Asia Alexiss Facility:[facility] Procedures Date Procedure Procedure Detail Performing Clinician Start: 04-21-2024 Mri orbit face & nec k w/o & w/contrast matrcasandra Hunter MD Work Phone: Start: 03-21-2024 Plain x-ray of hand Dr. Rere Aguiar Work Phone: Start: 02-09-2024 Ct lower extremity w /o contrast material Rere Valentino APRN.[employer] Work Phone: Start: 01-31-2024 End: 01-31-2024 Us compl joint r-t w/image documentation Rere Valentino APRN.[employer] Work Phone: Start: 11-26-2023 Radiologic examinati on [...] neck Start: 02-09-2022 Plain chest X-ray Start: 11-18-2021 Plain x-ray of elbow Start: 02-04-2015 Colonoscopy Niyah Bui APRN.[employer] Work Phone: Plan of Treatment Date Care Activity Detail Author Start: 2038 RSV Vaccine (1 - 1-d ose 75+ series) RSV Vaccine (1 - 1-dose 75+ series) [facility] Start: 10-13-2032 Urine microalbumin profile DTaP,Tdap,Td Vaccine (4 - Td or Tdap) [facility] Start: 05-29-2027 Diabetes Screening Diabetes Screenin g [facility] Start: 03-06-2027 Diabetes Screening Diabetes Screenin g [facility] Start: 12-27-2026 Diabetes Screening Diabetes Screenin g [facility] Start: 07-30-2025 Influenza vaccination Influenz a Vaccine (Season Ended) [facility] Start: 02-04-2025 Colonoscopy COLONOSCOPY [facility] Start: 02-04-2025 COLORECTAL CANCER SCREENING COLORECTAL CANCER SCREENING [facility] Start: 02-04-2025 Screening for malign ant neoplasm of colon [facility] Start: 10-03-2024 End: 10-03-2024 Patient encounter procedure 10/03/2024 9:15 AM EST Office Visit Orthopaedics [address] [address] Luis Miguel Rhodes MD [address] [place] [address] Lipoma of right upper extremity [D17.21] follow up Orthopaedics Comment on above: Lipoma of right uppe r extremity [D17.21] follow up Start: 07-30-2024 Covid-19 Vaccine ( season) Covid-19 Vaccine ( season) [facility] Start: 07-30-2024 Influenza vaccination [facility] Start: 07-25-2024 End: 07-25-2024 Patient encounter procedure 07/25/2024 11:00 AM EDT Office Visit Rheumatology [address] [place] [address] Tito Vega MD [address] [place] [address] Joint Pain Rheumatology Comment on above: Joint Pain Start: 05-16-2024 End: 05-16-2024 Patient encounter procedure 05/16/2024 1:00 PM EDT Office Visit Orthopaedics [address] [address] Luis Miguel Rhodes MD [address] [place] [address] Lipoma of right upper extremity [D17.21] Orthopaedics Comment on above: Lipoma of right uppe r extremity [D17.21] Start: 05-11-2024 End: 05-11-2024 Patient encounter procedure 05/11/2024 10:15 AM EDT Office Visit Orthopaedics [address] [place] [address] Maci Dorsey DO [address] [place] [address] Shoulder pain/ Soft Tissue / Neck Mass referral per Dr Hunter Orthopaedics Comment on above: Shoulder pain/ Soft Tissue / Neck Mass referral per Dr Hunter Start: 04-21-2024 End: 04-21-2024 Patient encounter procedure 04/21/2024 8:00 AM EDT Appointment Radiology [address] [place] [address] Neck WO/W, Dx Neck mass [R22.1], pt made the appt Radiology Comment on above: MRI ST Neck WO/W, Dx Neck mass [R22.1], pt made the appt Start: 04-03-2024 End: 04-03-2024 Patient encounter procedure 04/03/2024 3:30 PM EDT Office Visit Rheumatology [address] [facility] [place] [address] Rere Valentino, CONTINUOUS IMPROVEMENT FACILITATOR.[employer] [address] [facility] [address] follow up in 2 months Rheumatology Comment on above: follow up in 2 month s Start: 04-03-2024 End: 07-03-2024 25-hydroxyvitamin D3 [Mass/volume] in Serum or Plasma VITAMIN D 25 HYDROXY Lab Routine Vitamin D deficiency Expected: 04/03/2024 (Approximate), Expires: 07/03/2024 [facility] Work Phone: Comment on above: Expected: 04/03/2024 (Approximate), Expires: 07/03/2024 Start: 04-03-2024 End: 07-03-2024 CREATININE BLD CREATININE BLD Lab Routine Joint swelling Expected: 04/03/2024 (Approximate), Expires: 07/03/2024 [facility] Work Phone: Comment on above: Expected: 04/03/2024 (Approximate), Expires: 07/03/2024 Start: 04-03-2024 End: 07-03-2024 Parathyrin.intact [Mass/volume] in Serum or Plasma PTH INTACT BLD Lab Routine Joint swelling Expected: 04/03/2024 (Approximate), Expires: 07/03/2024 [facility] Work Phone: Comment on above: Expected: 04/03/2024 (Approximate), Expires: 07/03/2024 Start: 04-03-2024 End: 07-03-2024 Urate [Mass/volume] in Serum or Plasma URIC ACID BLOOD Lab Routine Joint swelling Expected: 04/03/2024 (Approximate), Expires: 07/03/2024 [facility] Work Phone: Comment on above: Expected: 04/03/2024 (Approximate), Expires: 07/03/2024 Start: 04-03-2024 End: 04-03-2024 ambulatory 04/03/2024 10:00 AM EDT Results Only [facility] [address] [place] [address] Vitamin D deficiency [E55.9] [facility] Comment on above: Vitamin D deficiency [E55.9] Start: 03-21-2024 [facility] Start: 03-04-2024 End: 06-03-2024 CBC W Auto Differential panel - Blood CBC + DIFF Lab Routine Hyperuricemia Expected: 03/04/2024 (Approximate), Expires: 06/03/2024 [facility] Work Phone: Comment on above: Expected: 03/04/2024 (Approximate), Expires: 06/03/2024 Start: 03-04-2024 End: 06-03-2024 Comprehensive metabolic 2000 panel - Serum or Plasma COMP METABOLIC PANEL Lab Routine Hyperuricemia Expected: 03/04/2024 (Approximate), Expires: 06/03/2024 [facility] Work Phone: Comment on above: Expected: 03/04/2024 (Approximate), Expires: 06/03/2024 Start: 03-04-2024 End: 06-03-2024 Urate [Mass/volume] in Serum or Plasma URIC ACID BLOOD Lab Routine Hyperuricemia Expected: 03/04/2024 (Approximate), Expires: 06/03/2024 [facility] Work Phone: Comment on above: Expected: 03/04/2024 (Approximate), Expires: 06/03/2024 Start: 12-20-2023 [facility] Start: 11-30-2023 Blood chemistry [facility] Start: 11-29-2023 Behavioral Health Screening Behavioral Health Screening [facility] Start: 11-29-2023 Depression Assessment Depression Ass essment [facility] Start: 11-29-2023 Patient discharge [facility] Start: 11-26-2023 Following clinical pathway protocol [facility] Start: 11-26-2023 Assessment of risk o f venous thromboembolism [facility] Start: 11-26-2023 Fall prevention [facility] Start: 11-26-2023 Insertion of cathete r into peripheral vein [facility] Start: 11-26-2023 Providing care accor ding to standard [facility] Start: 11-26-2023 Provision of activit y privileges [facility] Start: 11-26-2023 Referral to occupati onal therapist [facility] Start: 11-26-2023 Referral to service [facility] Start: 11-26-2023 [facility] [facility] Start: 11-26-2023 Hospital admission, emergency, from emergency room, medical nature [facility] Start: 11-26-2023 Admission procedure [facility] Start: 11-26-2023 Verification routine [facility] Start: 11-26-2023 Patient referral to dietitian [facility] Start: 11-26-2023 [facility] Start: 07-30-2023 Covid-19 Vaccine ( season) Covid-19 Vaccine ( season) [facility] Start: 07-30-2023 Influenza vaccination C [facility] Start: 2023 RSV Vaccine (1 - 1-d ose 60+ series) RSV Vaccine (1 - 1-dose 60+ series) [facility] Start: 11-29-2022 DEPRESSION ASSESSMENT DEPRESSION ASS ESSMENT [facility] Start: 10-14-2022 Simple repair scalp/neck/ax/genit/trunk 2.5cm/< RPR S/N/AX/GEN/TRNK 2.5CM/< [facility] Start: 03-14-2022 Emergency department visit low/moder severity EMERGENCY DEPT VISIT [facility] Work Phone: Start: 2018 PROSTATE CANCER SCRE ENING DISCUSSION PROSTATE CANCER SCREENING DISCUSSION [facility] Start: 2018 Prostate specific an tigen measurement Prostate Cancer Screening Discussion [facility] Start: 2013 Pneumococcal Vaccine : 50+ (1 of 1 - PCV) Pneumococcal Vaccine: 50+ (1 of 1 - PCV) [facility] Start: 2013 SHINGRIX VACCINE (1 of 2) LOZANO GRIX VACCINE (1 of 2) [facility] Start: 2008 COLOGUARD (FIT-DNA) COLOGUARD (FIT-D NA) [facility] Start: [address] [facility] Start: 2008 DIABETES SCREEN DIABETES SCREEN [facility] Start: 2008 FECAL OCCULT BLOOD FECAL OCCULT BLOO D [facility] Start: 2008 Prostate specific an tigen measurement Prostate Cancer Screening Discussion [facility] Start: 2008 Screening for malign ant neoplasm of colon [facility] Start: 2008 SIGMOIDOSCOPY SIGMOIDOSCOPY [facility] Start: 1998 Lipid panel Lipid Screening [facility] Start: 1998 LIPID SCREEN LIPID SCREEN [facility] Start: 1982 Urine microalbumin profile DTAP,TDAP,TD (1 - Tdap) [facility] Start: 1981 Anxiety Screening Anxiety Screening [facility] Start: 1981 Depression Screening Depression Scre ening [facility] Start: 1981 HEPATITIS C SCREENING HEPATITIS C SC REENING [facility] Start: 1981 HIV SCREENING HIV SCREENING [facility] Start: 1981 HIV screening HIV Screening [facility] Start: 1965 COVID-19 VACCINE (#1) COVID-19 VACCI NE (#1) [facility] Antibody to lupus La protein measurement [facility] Antibody to SS-A measurement [facility] Centromere protein B Ab [Units/volume] in Serum [facility] Chromatin Ab [Units/volume] in Serum or Plasma [facility] End: 02-16-2025 CT Knee - right WO contrast CT KNEE WO IVCON RIGHT Radiology Routine Chronic pain of both knees Hyperuricemia 1 Occurrences starting 01/18/2024 until 02/16/2025 [facility] Work Phone: Comment on above: 1 Occurrences starti ng 01/18/2024 until 02/16/2025 DNA double strand Ab [Units/volume] in Serum [facility] Denia-1 extractable nuc lear Ab [Units/volume] in Serum [facility] End: 06-15-2025 MR Chest WO contrast MRI CHEST WALL/RIB WO IVCON RIGHT Radiology Routine Localized swelling, mass and lump, trunk 1 Occurrences starting 05/16/2024 until 06/15/2025 [facility] Work Phone: Comment on above: 1 Occurrences starti ng 05/16/2024 until 06/15/2025 End: 04-13-2025 MR Neck WO and W contrast IV MRI SOFT TISSUE NECK WO/W IVCON Radiology Routine Neck mass 1 Occurrences starting 03/14/2024 until 04/13/2025 [facility] Work Phone: Comment on above: 1 Occurrences starti ng 03/14/2024 until 04/13/2025 Nuclear Ab [Presence ] in Serum [facility] Patient Education [facility] Work Phone: Patient referral [facility] Work Phone: SCL-70 extractable nuclear Ab [Units/volume] in Serum by Immunoassay [facility] extractable nu clear Ab [Presence] in Serum [facility] End: 06-01-2025 XR Shoulder - right 3 Views XR SHOULDER GENERAL 3V OR MORE AP/TRUE AP/OTHER RIGHT Radiology Routine Right shoulder pain, unspecified chronicity 1 Occurrences starting 05/02/2024 until 06/01/2025 [facility] Work Phone: Comment on above: 1 Occurrences starti ng 05/02/2024 until 06/01/2025 XR Shoulder - right 3 Views XR SHOULDER GENERAL 3V OR MORE AP/TRUE AP/OTHER RIGHT Radiology Routine Right shoulder pain, unspecified chronicity 05/11/2024 9:46 AM EDT [facility] Work Phone: [facility] Immunizations Immunization Date Immunization Notes Care Provider Magdy mackey 10-13-2022 tetanus toxoid, redu veronica diphtheria toxoid, and acellular pertussis vaccine, adsorbed [facility] 08-10-2016 tetanus toxoid, redu veronica diphtheria toxoid, and acellular pertussis vaccine, adsorbed [facility] 12-14-2014 tetanus toxoid, redu veronica diphtheria toxoid, and acellular pertussis vaccine, adsorbed Dr. Rere Aguiar Work Phone: [facility] Payers Date Payer Category Payer Self-pay [id number] 2022 Medicaid [id number] 2014 Unknown [id number] 2014 Unknown [id number] Unknown [facility] [id number] Unknown [id number] Social History Date Type Detail Facility Start: 02-23-2022 End: 03-21-2024 Tobacco smoking status MDIS Unknown if ever smoked [facility] Start: 04-08-2021 Non-smoker [facility] Start: 1965 Sex Assigned At Male [facility] Start: 04-20-2023 Tobacco smoking status NHIS Ex-smoker [facility] Work Phone: History of tobacco use Current smoker [facility] Work Phone: Start: 04-20-2023 End: 12-27-2023 Tobacco use and exposure Smokeless tobacco non-user [facility] Work Phone: Start: 04-28-2023 End: 05-29-2024 Alcohol intake Current drinker of alcohol (finding) [facility] Start: 02-04-2015 Alcohol Comment occasional use [facility] Start: 1965 Sex Assigned At Not on file [facility] Start: 12-27-2023 Tobacco smoking status NHIS Never smoked tobacco [facility] Start: 12-27-2023 End: 05-29-2024 History of Social function [facility] Start: 12-27-2023 End: 05-29-2024 Tobacco use panel [facility] National Score (1-100), lower number is lower risk 90 [facility] NEGATED: Highlighted rowStart: NINF History of tobacco use Passive smoker [facility] Goals Date Patient Goal Desired Activity /State Functional Status Date Assessment Result Facility 11-29-2023 Functional status Ambulates;Bath room Privilege [facility] Work Phone: 06-29-2014 Are you deaf, or do you have serious difficulty hearing No 06/29/2014 3:01 PM ROSIBELT Rosita Foley LPN No [facility] 06-29-2014 Are you blind, or do you have serious difficulty seeing, even when wearing glasses Yes 06/29/2014 3:01 PM ROSIBELT Rosita Foley LPN Yes [facility] 06-29-2014 Do you have serious difficulty walking or climbing stairs No 06/29/2014 3:01 PM EDT Rosita Foley LPN No [facility] 06-29-2014 Do you have difficul ty dressing or bathing No 06/29/2014 3:01 PM EDRosita Rodas LPN No [facility] 06-29-2014 Because of a physica l, mental, or emotional condition, do you have difficulty doing errands alone such as visiting a physician's office or shopping No 06/29/2014 3:01 PM EDT Rosita Foley LPN No [facility] Mental Status Date Assessment Result Facility 11-29-2023 Cognitive function Voice/Name [facility] Work Phone: 11-26-2023 Cognitive function Level Of Cons ciousness Awake;Alert;Appropriate [facility] Work Phone: 06-08-2023 Cognitive function Level Of Cons ciousness Awake;Alert;Appropriate [facility] Work Phone: 05-06-2023 Cognitive function Level Of Cons ciousness Awake;Alert;Appropriate;Fol lows Commands [facility] Work Phone: 01-26-2023 Cognitive function Level Of Cons ciousness Awake;Alert;Appropriate [facility] Work Phone: 02-09-2022 Cognitive function Voice/Name [facility] Work Phone: 06-29-2014 Because of a physica l, mental, or emotional condition, do you have serious difficulty concentrating, remembering, or making decisions No 06/29/2014 3:01 PM EDT Rosita Foley LPN No [facility] Clinical Notes 03-01-2023 to 04-24-2025 Telephone Encounter - Kirstin Metcalf MA - 04/24/2025 9:32 AM EDTTelephone Encounter - Kirstin Metcalf MA - 04/24/2025 9:32 AM EDTLuis Miguel Rhodes MD - 05/16/2024 1:00 PM EDT Note Date & Type Note Facility 04-24-2025 Telephone encounter Note Last office visit: Next office visit: Requested Prescriptions Pending Prescriptions Disp Refills allopurinol (ZYLOPRIM) 100 mg tablet [Pharmacy Med Name: ALLOPURINOL 100 MG TABLET] 180 tablet 2 Sig: TAKE 2 TABLETS BY MOUTH EVERY DAY Please review and advise. Kirstin Metcalf MA [facility] 04-24-2025 Miscellaneous Notes Last office visit: Next office visit: Requested Prescriptions Pending Prescriptions Disp Refills allopurinol (ZYLOPRIM) 100 mg tablet [Pharmacy Med Name: ALLOPURINOL 100 MG TABLET] 180 tablet 2 Sig: TAKE 2 TABLETS BY MOUTH EVERY DAY Please review and advise. Kirstin Metcalf MA documented in this encounter [facility] 02-07-2025 Telephone encounter Note Most recent Rheumatology visit: 05/29/2024 (with Mailk Mera) Last Bone Density on file: None on file Rheumatology Care Team: None on file Recent Office Visits - This Specialty 05/29/2024 Gout with manifestations Rheumatology Malik Mera APRN.WELDER RAILCAR MECHANIC 04/03/2024 Gout with manifestations Rheumatology Rere Valentino CONTINUOUS IMPROVEMENT FACILITATOR.WELDER RAILCAR MECHANIC 03/15/2024 Gout with manifestations Rheumatology Rere Valentino, CONTINUOUS IMPROVEMENT FACILITATOR.WELDER RAILCAR MECHANIC Upcoming Rheumatology Appointments - Next 365 Days [...] Open Future (Single Instance) Lab Orders None [facility] 02-07-2025 Miscellaneous Notes Most recent Rheumatology visit: 05/29/2024 (with Malik Mera) Last Bone Density on file: None on file Rheumatology Care Team: None on file Recent Office Visits - This Specialty 05/29/2024 Gout with manifestations Rheumatology Malik Mera APRN.WELDER RAILCAR MECHANIC 04/03/2024 Gout with manifestations Rheumatology Rere Valentino, CONTINUOUS IMPROVEMENT FACILITATOR.WELDER RAILCAR MECHANIC 03/15/2024 Gout with manifestations Rheumatology Rere Valentino, CONTINUOUS IMPROVEMENT FACILITATOR.WELDER RAILCAR MECHANIC Upcoming Rheumatology Appointments - Next 365 Days [...] Lab Orders None documented in this encounter [facility] 09-20-2024 Telephone encounter Note Called Dr Mendoza office, [facility] is the only place that performs this type of surgery. Spoke with Pablo & natali agreed with a follow up appointment with Dr. Rhodes on 10/03. [facility] 09-20-[address] Mendoza office, [facility] is the only place that performs this type of surgery. Spoke with Pablo & natali agreed with a follow up appointment with Dr. Rhodes on 10/03. Patient called in stating he was seen by Dr. Rhodes for a lipoma. Patient prefers not to travel to [facility]. Do you have someone else that you can recommend he see? He is willing to travel to [place]. documented in this encounter [facility] 09-20-2024 Telephone encounter Note Patient called in stating he was seen by Dr. Rhodes for a lipoma. Patient prefers not to travel to [facility]. Do you have someone else that you can recommend he see? He is willing to travel to [place]. [facility] 05-29-2024 Note HNO ID: [id number] Author: MALIK MERA APRN.WELDER RAILCAR MECHANIC Service: ? Author Type: Nurse Practitioner Type: [...] for mobic to resume after that. 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 I spent a total of 20 minutes on the date of the service which included preparing to see the patient, [id number] patient care, completing clinical documentation, obtaining and/or reviewing separately obtained history, performing a medically appropriate examination, and counseling and educating the patient/family/caregiver. Malik Mera APRN.WELDER RAILCAR MECHANIC cc: PCP: Rere Aguiar MD ([facility]) [address] [place] [address] Subjective HISTORY OF PRESENT ILLNESS Gout- Treatment: [...] - 8.1 mg/dL (more content not included)... [facility] 05-16-2024 History of Present illness Narrative [...] rotators, biceps, triceps, wrist extension, wrist flexion, yardage caller, dorsal interossei, EPL and APB. Sensation intact [...] being sent back to Peggy Hunter via [employer] Local Data Integration Architect or "Chart CC" for [facility] Providers. Luis Miguel Rhodes MD Washer Repairman, Orthopaedic Surgery Division of Musculoskeletal Oncology documented in this encounter [facility] 05-16-2024 Note HNO ID: [id number] Author: LUIS MIGUEL RHODES MD Service: ? [...] rotators, biceps, triceps, wrist extension, wrist flexion, yardage caller, dorsal interossei, EPL and APB. Sensation intact [...] is generally not (more content not included)... [facility] 05-11-2024 Note HNO ID: [id number] Author: MACI DORSEY, DO Service: ? Author [...] never evaluated. He was seen by his concreting supervisor and she noticed he has a lipoma on top of his back. She had referred him to be evaluated by Peggy Hunter in [place] and then she referred him here. He denies any pain today but he can have pain at times when he stretches his arm outward. His shoulder feels tighter then the left side. 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 Patient had x-ray done [...] messaged dr sarabia (more content not included)... [facility] 05-11-2024 History of Present illness Narrative [...] never evaluated. He was seen by his concreting supervisor and she noticed he has a lipoma on top of his back. She had referred him to be evaluated by Peggy Hunter in [place] and then she referred him here. He denies any pain today but he can have pain at times when he stretches his arm outward. His shoulder feels tighter then the left side. Works at [employer] in [employer] services. Patient had x-ray done today. MRI [...] upper thoracic region deep to trapezius Maci MoncadaPAvelHAvel documented in this encounter [facility] 05-11-2024 History of Present illness Narrative Radiology [...] PATIENT PRESENTS WITH AN IMPLANTABLE OR ATTACHED MARINE ELECTRICIAN: No RADIOLOGY DEPARTMENT: General X-ray: Exam(s) Completed: Upper Extremity X-Ray(s): Shoulder, AP / TRUE AP / AXILLARY right PERIPHERAL IV DATA: Not applicable SIGNED BY: WILLIAM Larson) May 11, 2024 9:36 AM documented in this encounter [facility] 05-11-2024 Note HNO ID: [id number] Author: HEENA HAMILTON RT(R) Service: ? Author Type: Technologist Type: [...] PATIENT PRESENTS WITH AN IMPLANTABLE OR ATTACHED MARINE ELECTRICIAN: No RADIOLOGY DEPARTMENT: General X-ray: Exam(s) Completed: Upper Extremity X-Ray(s): Shoulder, AP / TRUE AP / AXILLARY right PERIPHERAL IV DATA: Not applicable SIGNED BY: RT Marsha(R) May 11, 2024 9:36 AM [facility] 05-03-2024 Telephone encounter Note Spoke with [...] electronically send to pharmacy. Senia Thurston MA [facility] 05-03-2024 Miscellaneous Notes Spoke with patient -- [...] allopurinol to be rewritten and sent to [facility] pharmacy. Unable to fill until May. Pt taking 100 mg twice daily. Please review and advise. No chief complaint on file. Patient has been identified by name and birthdate. Duration of symptoms: N/A Person calling: self Call patient at: on cell [phone] (home) Was an appointment scheduled: No Closing statement: Results or non-symptom based questions: Thank you for calling [facility], your call will be returned within the next business day. Kristyn Carrion documented in this encounter [facility] 05-02-2024 Telephone encounter Note Which is he using the 100mg or or the 200mg ?? [facility] 05-02-2024 Telephone encounter Note Patient's request for medication is as follows: Requested Prescriptions Pending Prescriptions Disp Refills allopurinol (ZYLOPRIM) 100 mg tablet 60 tablet 3 Sig: Take 1 tablet by mouth two times a day. Please approve the above prescription(s) to electronically send to pharmacy. Senia Thurston MA [facility] 05-02-2024 Telephone encounter Note Pt requesting allopurinol to be rewritten and sent to [facility] pharmacy. Unable to fill until May. Pt taking 100 mg twice daily. Please review and advise. No chief complaint on file. Patient has been identified by name and birthdate. Duration of symptoms: N/A Person calling: self Call patient at: on cell [phone] (home) Was an appointment scheduled: No Closing statement: Results or non-symptom based questions: Thank you for calling [facility], your call will be returned within the next business day. Kristyn Carrion [facility] 04-25-2024 Telephone encounter Note Attempted to call patient to schedule an appointment with ortho. Patients voicemail was full & does not have my chart. I will call again [facility] 04-25-2024 Miscellaneous Notes Attempted to call patient to schedule an appointment with ortho. Patients voicemail was full & does not have my chart. I will call again documented in this encounter [facility] 04-22-2024 Telephone encounter Note Left message with MRI results - very large intramuscular lipoma. I recommend referral to ortho - will have our office assist with scheduling. [facility] 04-22-2024 Miscellaneous Notes Left message with MRI results - very large intramuscular lipoma. I recommend referral to ortho - will have our office assist with scheduling. documented in this encounter [facility] 04-21-2024 Note HNO ID: [id number] Author: JESSIKA SANDOVAL RT(R) Service: Radiology Author [...] PATIENT PRESENTS WITH AN IMPLANTABLE OR ATTACHED MARINE ELECTRICIAN: No ALLERGIES: Reviewed and unchanged CONTRAST ALLERGY: NO. EXAM: MRI - CONTRAST TYPE: GROUP II PERIPHERAL IV DATA: Ambulatory: A peripheral IV was started in the Right antecubital site with a Angio cath/Butterfly: 22 gauge. RADIOLOGY DEPARTMENT: MR; Exam(s) Completed: soft tissue neck trapezius mass SIGNATURE: RT Kaylah(R) PATIENT NAME: Xiang West DATE: April 21, 2024 TIME: 8:08 AM [facility] 04-21-2024 History of Present illness Narrative Radiology [...] PATIENT PRESENTS WITH AN IMPLANTABLE OR ATTACHED MARINE ELECTRICIAN: No ALLERGIES: Reviewed and unchanged CONTRAST ALLERGY: NO. EXAM: MRI - CONTRAST TYPE: GROUP II PERIPHERAL IV DATA: Ambulatory: A peripheral IV was started in the Right antecubital site with a Angio cath/Butterfly: 22 gauge. RADIOLOGY DEPARTMENT: MR; Exam(s) Completed: soft tissue neck trapezius mass SIGNATURE: RT Kaylah(R) PATIENT NAME: Xiang West DATE: April 21, 2024 TIME: 8:08 AM documented in this encounter [facility] 04-07-2024 Telephone encounter Note Left message for patient to call office regarding below. [facility] 04-07-2024 Miscellaneous Notes Left message for patient [...] 8.1 mg/dL 4.3 documented in this encounter [facility] 04-07-2024 Telephone encounter Note Patient returning call in regards to missed call. Please contact patient. [facility] 04-07-2024 Telephone encounter Note Lm regarding results and recommendations. [facility] 04-06-2024 Telephone encounter Note Please call patient Normal labs Please continue plan Latest Ref Rng 04/03/2024 Creatinine 0.73 - 1.22 mg/dL 1.07 eGFR >=60 mL/min/1.73m 79 Vitamin D 25 Hydroxy 31.0 - 80.0 ng/mL 40.4 PTH, Intact 15 - 65 pg/mL 42 Uric Acid 4.0 - 8.1 mg/dL 4.3 [facility] 04-03-2024 Instructions Rere Valentino APRN.ANTHONY - 04/03/2024 4:11 PM EDT Allopurinol 200mg [...] are not recommended. documented in this encounter [facility] 04-03-2024 History of Present illness Narrative Images from the original note were not included. Rheumatology FOLLOW UP VISIT Date of Service: 04/03/2024 Patient: Xiang West Medical Record: [id number] Primary Care Physician: Rere Aguiar MD Last [...] (Final result) Impression: IMPRESSION: 1. Mild osteoarthritis Patch Machine Operator: PSCB Transcribe Date/Time: Dec 27 2023 3:20P Dictated [...] Impression: IMPRESSION: 1. Mild bilateral knee osteoarthritis Patch Machine Operator: PSCB Transcribe Date/Time: Dec 27 2023 3:18P Dictated by : TAHIR YORK MD... Last CT Knee - Impression Only CT KNEE WO IVCON RIGHT Exam End: 02/09/2024 12:39 PM (Final result) Impression: IMPRESSION: No findings to suggest gout. Patch Machine Operator: PSCB Transcribe Date/Time: Feb 09 2024 12:46P ... Last XR Ankle - Impression Only XR ANKLE GENERAL 3V AP/LAT/OBL BILATERAL Exam End: 12/27/2023 1:32 PM (Final result) Impression: IMPRESSION: 1. Bilateral talocalcaneal tarsal coalition. Patch Machine Operator: [facility] Transcribe Date/Time: Dec 27 2023 3:15P [...] Full ROM in flexion and extension. Full yardage caller strength. No swelling or synovitis along the [...] is currently [facility] Go to the Rheumatology activity and complete the [facility] joint exam. Joint Exam 04/03/2024 No [...] which included preparing to see the patient, [id number] patient care, completing clinical documentation, obtaining and/or [...] 2024 Time: 03:30pm documented in this encounter [facility] 04-03-2024 Note HNO ID: [id number] Author: RERE VALENTINO APRN.CNP Service: ? Author Type: Nurse Practitioner Type: Progress Notes Filed: 04/24/2024 22:26 Note Text: Rheumatology FOLLOW UP VISIT Date of Service: 04/03/2024 Patient: Xiang West Medical Record: [id number] Primary Care Physician: Rere Aguiar MD Last [...] for: Headaches, Numbness, (more content not included)... [facility] 03-23-2024 Telephone encounter Note Refilled at [facility] 03-23-2024 Miscellaneous Notes Refilled at [facility] -Pt returning call to office. Pt identified by name and date. Pt given message as detailed below and verbalized understanding. -Pt updated medications as detailed below. Prednisone--Pt takes this PRN for "knee pain"/states has not taken this recently Meloxicam--Pt knows [...] an issue with his hospital pharmacy in [place], so all prescriptions do need to go to his [facility] pharmacy. States the hospital pharmacy team was [...] 30 Quantity: 30 Each Refills remainin Pharmacy: [facility] #[id number] [place] [address] [address] [facility] [id number] [place] [id number] Authorizing provider: Rere Valentino APRN.WELDER RAILCAR MECHANIC [address] [facility] [address] Pt should only be taking Allopurinol 200mg - 1 tab daily pt should continue on Losartan for his blood pressure prescribed by outside physician LOSARTAN POTASSIUM 50 MG TAB Sig: take 1 tablet by mouth once daily Dispensed: 03/20/2024 12:00 AM Unit strength: 50 mg Unit form: tablet Days supply: 90 Quantity: 90 Each Refills remainin Pharmacy: [facility] #[id number] - [place] [address] [address] [facility] [phone] [id number] [address] Authorizing provider: Rere Aguiar [address] [facility] [address] [place] [phone] It also looks like pt was prescribed Prednisone for outside physician on 03/21/24 PREDNISONE 20 MG TABLET Sig: take 1 tablet by mouth once daily if needed Dispensed: 03/21/2024 12:00 AM Unit strength: 20 mg Unit form: tablet Days supply: 15 Quantity: 15 Each Refills remainin [facility]acy: [id number] - [place] [phone] - [address] [facility] - [phone] [address] [place] [phone] Authorizing provider: Rere Aguiar [address] [facility] [address] [place] [phone] After review : It doesn't look like [...] calling: self Call patient at: on cell [phone] (home) [phone] (cell) Was an appointment scheduled: No Closing statement: Results or non-symptom based questions: Thank you for calling [facility], your call will be returned within the next business day. Kristyn Carrion documented in this encounter [facility] 03-23-2024 Telephone encounter Note -Pt returning call to office. Pt identified by name and date. Pt given message as detailed below and verbalized understanding. -Pt updated medications as detailed below. Prednisone--Pt takes this PRN for "knee pain"/states has not taken this recently Meloxicam--Pt knows [...] an issue with his hospital pharmacy in [place], so all prescriptions do need to go to his [facility] pharmacy. States the hospital pharmacy team was supposed to switch pharmacies for him for his allopurinol prescription. Will contact office if has issues with this. T [facility] 03-23-2024 Telephone encounter Note Spoke with patient -- requesting that I call him back after 2pm --I route to Derm appt and did not have his med bottles to review T [facility] 03-22-2024 Telephone encounter Note I sent more allopurinol Please clarify meds as below mentions Also why is he taking more pred and what was this prescribed for [facility] 03-22-2024 Telephone encounter Note Left message for [...] 30 Quantity: 30 Each Refills remainin [facility] #[id number] - [place] [address] - [address] [facility] [phone] [address] [place] [phone] Authorizing provider: Rere Valentino APRN.[facility] [address] [id number] Pt should only be taking Allopurinol 200mg - 1 tab daily pt should continue on Losartan for his blood pressure prescribed by outside physician LOSARTAN POTASSIUM 50 MG TAB Sig: take 1 tablet by mouth once daily Dispensed: 03/20/2024 12:00 AM Unit strength: 50 mg Unit form: tablet Days supply: 90 Quantity: 90 Each Refills remainin Pharmacy: [facility] #[id number] [place] [address] [address] [facility] [phone] [id number] [address] [facility] [address] Authorizing provider: Rere Aguiar [address] [place] [phone] It also looks like pt was prescribed Prednisone for outside physician on 03/21/24 PREDNISONE 20 MG TABLET Sig: take 1 tablet by mouth once daily if needed Dispensed: 03/21/2024 12:00 AM Unit strength: 20 mg Unit form: tablet Days supply: 15 Quantity: 15 Each Refills remainin [facility]: [id number] - [place] [address] [address] [facility] [phone] [address] [place] [phone] Authorizing provider: Rere Aguiar [address] [facility] [address] After review : It doesn't look like pt picked up the 200mg tablet - only 100mg tablet -- Please verify pt's bottle with you to see what he actually has on hand . If he does not have the 200mg tablet on hand - we can send him a new prescription [facility] 03-22-2024 Telephone encounter Note Pt called [...] calling: self Call patient at: on cell [phone] (home) [phone] (cell) Was an appointment scheduled: No Closing statement: Results or non-symptom based questions: Thank you for calling [facility], your call will be returned within the next business day. Kristyn Carrion [facility] 03-17-2024 Telephone encounter Note records received placed on Rere's desk for review [facility] 03-17-2024 Miscellaneous Notes records received placed on Rere's desk for review called [facility] they are in process of faxing records to our office [phone] Please call [facility] and try to obtain knee aspiration records Maybe around 2017 documented in this encounter [facility] 03-17-2024 Telephone encounter Note called [facility] they are in process of faxing records to our office [phone] [facility] 03-16-2024 Miscellaneous Notes Pt notified sent notification to [facility] as well Xiang West (Maher: [id number]) PA Rx #: [id number] Need Help? Call us at Outcome Approved on March 15 Your PA request for [id number] was approved for 365 days. The PA# assigned is [id number]. Authorization Expiration Date: 03/13/2025 Drug Colchicine 0.6MG tablets [facility] cloud logo Form [place] Medicaid [employer] Electronic PA Form (2016 [employer]) Original Claim Info [id number]:PA REQUIRED-CONTACT [place] [employer] DESK @ [phone] ;[id number]:PRESCRIBER LICENSE NUMBER NOT ON FILE PA was completed through Covermymeds awaiting determination Xiang West (Maher: [id number]) PA Rx #: [id number] Pablo is calling Rere Valentino APRN.CNP today to let her know that his pharmacy told him a prior authorization would be needed for colchicine 0.6 mg tablet. Please advise. Patient has been identified by name and birthdate. Duration of symptoms: N/A Person calling: self Call patient at: on cell [phone] (home) [phone] (cell) Was an appointment scheduled: No Closing statement: Results or non-symptom based questions: Thank you for calling [facility], your call will be returned within the next business day. Miriam Carrion documented in this encounter [facility] 03-15-2024 Telephone encounter Note Please call [facility] and try to obtain knee aspiration records Maybe around 2017 [facility] 03-15-2024 Instructions Rere Valentino APRN.CNP - 03/15/2024 [...] are not recommended. documented in this encounter [facility] 03-15-2024 Note HNO ID: [id number] Author: PEGGY HUNTER MD Service: ? Author [...] EXAM: BP 145/92 Pulse 64 Ht 6' 3" (1.91m) Wt 255 lb 11.2 oz (116.0kg) [...] for today's visit: none Peggy Hunter MD [facility] 03-15-2024 History of Present illness Narrative [...] EXAM: BP 145/92 Pulse 64 Ht 6' 3" (1.91m) Wt 255 lb 11.2 oz (116.0kg) [...] Peggy Hunter MD documented in this encounter [facility] 03-15-2024 History of Present illness Narrative Images from the original note were not included. Rheumatology FOLLOW UP VISIT Date of Service: 03/15/2024 Patient: Xiang West Medical Record: [id number] Primary Care Physician: Rere Aguiar MD Last Rheumatology visit: 02/02/2024 (with Rree Valentino) History of Present Illness Xiang West [...] Feeling much better than he as prior [facility] is where he goes Prescribed allopurinol 200mg [...] Impression: IMPRESSION: 1. Mild bilateral knee osteoarthritis Patch Machine Operator: PSCB Transcribe Date/Time: Dec 27 2023 3:18P Dictated by : TAHIR YORK MD... Last CT Knee - Impression Only CT KNEE WO IVCON RIGHT Exam End: 02/09/2024 12:39 PM (Final result) Impression: IMPRESSION: No findings to suggest gout. Patch Machine Operator: PSCB Transcribe Date/Time: Feb 09 2024 12:46P ... Last XR Knee - Impression Only XR KNEE GENERAL 4V AP BOTH/PA BOTH/LAT/MERC BILATERAL Exam End: 12/27/2023 1:33 PM (Final result) Impression: IMPRESSION: 1. Mild bilateral knee osteoarthritis Patch Machine Operator: PSCB Transcribe Date/Time: Dec 27 2023 3:18P Dictated by : TAHIR YORK MD... Last CT Knee - Impression Only CT KNEE WO IVCON RIGHT Exam End: 02/09/2024 12:39 PM (Final result) Impression: IMPRESSION: No findings to suggest gout. Patch Machine Operator: [facility] Transcribe Date/Time: Feb 09 2024 12:46P [...] Full ROM in flexion and extension. Full yardage caller strength. No swelling or synovitis along the [...] is currently no information documented on the [facility]. Go to the Rheumatology activity and complete the [facility] joint exam. Joint Exam 03/15/2024 No joint [...] which included preparing to see the patient, [id number] patient care, completing clinical documentation, obtaining and/or [...] 2024 Time: 8:00am documented in this encounter [facility] 03-15-2024 Note HNO ID: [id number] Author: RERE VALENTINO APRN.CNP Service: ? Author Type: Nurse Practitioner Type: Progress Notes Filed: 03/15/2024 22:52 Note Text: Rheumatology FOLLOW UP VISIT Date of Service: 03/15/2024 Patient: Xiang West Medical Record: [id number] Primary Care Physician: Rere Aguiar MD Last [...] Feeling much better than he as prior [facility] is where he goes Prescribed allopurinol 200mg [...] Coughing up bl (more content not included)... [facility] 03-14-2024 Instructions Peggy Hunter MD - 03/14/2024 12:59 PM EDT Call to schedule the MRI documented in this encounter [facility] 03-13-2024 Miscellaneous Notes Pablo is calling Rere [...] calling: self Return call phone: on cell [phone] (home) [phone] (cell) Was an appointment scheduled: Yes: Date/Time: 03/15/2024 0800 Closing statement: Results or non-symptom based questions: Thank you for calling [facility], your call will be returned within the next business day. LORENZO [place] POST (Patient Operations Support Team) Please note: Please do not re-route encounters back to this agent, please send to appropriate office pool. Agent works in operations center and cannot complete patient specific tasks. documented in this encounter [facility] 02-28-2024 Miscellaneous Notes Patient returned call and was given message below. Patient had no further questions at this time. -Called and left message on pt's VM for pt to call back to the office to receive the message below. CT knee normal documented in this encounter [facility] 02-09-2024 Note HNO ID: [id number] Author: TOI WOODSON CT Service: ? Author Type: Jewelry Appraiser Type: Progress Notes Filed: 02/09/2024 12:37 Note [...] PATIENT PRESENTS WITH AN IMPLANTABLE OR ATTACHED MARINE ELECTRICIAN: No RADIOLOGY DEPARTMENT: CT; Exam(s) Completed: KNEE - DUAL ENERGY PERIPHERAL IV DATA: Not applicable SIGNED BY: KERRY Carlin February 09, 2024 12:36 PM [facility] 02-09-2024 History of Present illness Narrative Radiology [...] PATIENT PRESENTS WITH AN IMPLANTABLE OR ATTACHED MARINE ELECTRICIAN: No RADIOLOGY DEPARTMENT: CT; Exam(s) Completed: KNEE - DUAL ENERGY PERIPHERAL IV DATA: Not applicable SIGNED BY: KERRY Carlin February 09, 2024 12:36 PM documented in this encounter [facility] 02-08-2024 Miscellaneous Notes Reviewed patients chart. Patient is scheduled CT knee for 02/09/24 at 12:45pm Approved CT right knee Auth # [id number] Dates approved 01/27/2024 -03/27/2024 Please schedule within [...] 02/01 pt is to follow up in [facility] for repeat labs - Unsure reason for visit -- please cancel if this is in error CT scheduled for 02/08 documented in this encounter [facility] 02-08-2024 Miscellaneous Notes Rx sent Patient returning [...] mm/hr 34 (H) documented in this encounter [facility] 02-02-2024 Note HNO ID: [id number] Author: RERE VALENTINO APRN.CNP Service: ? Author [...] which included preparing to see the patient, [id number] patient care, completing clinical documentation, obtaining and/or reviewing separately obtained history, performing a medically appropriate examination, counseling and educating the patient/family/caregiver, and ordering medications, tests, or proceduresPortions of this note have been copied from my previous note and have been updated to reflect today's visit note February 02, 2024 all reflect current medical decision making from date of this visit. Rere Valentino APRN.WELDER RAILCAR MECHANIC cc: PCP: Rere Aguiar MD ([facility]) [address] [place] [phone] Subjective HISTORY OF PRESENT ILLNESS Only see [...] use) Autoimmune Disease (more content not included)... [facility] 02-02-2024 History of Present illness Narrative [...] which included preparing to see the patient, [id number] patient care, completing clinical documentation, obtaining and/or reviewing separately obtained history, performing a medically appropriate examination, counseling and educating the patient/family/caregiver, and ordering medications, tests, or proceduresPortions of this note have been copied from my previous note and have been updated to reflect today's visit note February 02, 2024 all reflect current medical decision making from date of this visit. Rere Valentino APRN.WELDER RAILCAR MECHANIC cc: PCP: Rere Aguiar MD ([facility]) [address] [place] [address] Subjective HISTORY OF PRESENT ILLNESS Only see [...] to the Rheumatology activity and [facility]. Joint Exam 02/02/2024 No joint exam has been documented for this visit Joint Exam Data (across time) documented in this encounter [facility] 02-02-2024 Instructions Rere Valentino APRN.ANTHONY - 02/02/2024 11:11 AM EST Continue prednisone mg for 1 month then stop No other nsaids With food If labs are normal We will increase allopurinol 200mg daily Recheck labs today and in 1 month documented in this encounter [facility] 01-21-2024 Miscellaneous Notes Notified patient of below, [...] No redness tender documented in this encounter [facility] 01-19-2024 Miscellaneous Notes Called and spoke with patient; patient stated working out and will call back to schedule DUAL energy CT Pss - please schedule DUAL energy CT Nursing - patient will stop in office thurs 2:30pm to confirm joint swelling finger Does not have appointment We will take pictures of finger swelling Patient is unable to do this at home and send through [facility] Once swelling confirmed will start pred taper [...] almost double in size. -[facility] and discussed how [...] to advise. Pablo is calling Rere Valentino APRN.WELDER RAILCAR MECHANIC today saying he is having joint pain [...] calling: self Call patient at: on cell [phone] (home) [phone] (cell) Was an appointment scheduled: No Closing statement: Symptom Call: Thank you for calling [facility], your call is very important. A nurse will call in approximately 2-4 hours during business hours. If this is an emergency, please contact 911. Miriam Carrion documented in this encounter [facility] 01-10-2024 Miscellaneous Notes Patient has been scheduled for their MSK US exam on 01/31/24 : 12:45 PM at [facility]. Called patient on January 07, 2024 at 2:17 PM to schedule their MSK US exam. No answer, left VM, 1st attempt. Visit Type: MSK SYNx2 Visit Length: 90, 100 OR 120 MINUTES Order Name/Protocol:US HAND/WRIST SYNOVIAL SCREEN RT+LT AND US FOOT/ANKLE SYNOVIAL SCREEN RT+LT Preferred Provider: N/A Comment: N/A Location: ANY FACILITY Slot held: N/A documented in this encounter [facility] 01-07-2024 Miscellaneous Notes Encounter sent to schedule [...] to the wrong pharmacy. Please re-send to [facility] pharmacy, order pended. Thank you. Patient [...] to pharmacy. No need to notify patient. LORENZO [place] POST (Patient Operations Support Team) Please note: [...] Abs Lymph 1.00 - 4.00 k/uL 3.84 [place]% % 7.0 Abs [place] <0.87 k/uL 0.77 Eosin% % 0.0 Abs Eosin <0.46 k/uL 0.00 Baso% % 0.0 Abs Baso <0.11 k/uL 0.00 Myelo% % 0.9 Left Shift Present Platelet Estimate Adequate Red Cell Morph Reviewed: see results of individual morphologies Polychromasia Slight Ovalocytes Few DTYPE Manual Color Yellow Yellow Clarity Clear Clear Glucose, Urine Negative Negative Bilirubin, Urine Negative Negative Ketones, Urine Negative Trace (A) Specific [place], Ur 1.005 - 1.030 1.025 Hemoglobin/Blood,Ur Negative [...] Total Negative Negative documented in this encounter [facility] 12-27-2023 Note HNO ID: [id number] Author: VENUS MORALES RT(R) Service: ? Author Type: Technologist Type: [...] PATIENT PRESENTS WITH AN IMPLANTABLE OR ATTACHED MARINE ELECTRICIAN: No RADIOLOGY DEPARTMENT: General X-ray: Exam(s) Completed: Lower Extremity X-Ray(s): Knee, AP / Lat / Tunne / Merchant Bilateral and Wt. Bearing and Ankle, Bilateral and Wt. Bearing Upper Extremity X-Ray(s): Hand, bilateral PERIPHERAL IV DATA: Not applicable SIGNED BY: Venus Morales, RT(R) December 27, 2023 1:30 PM [facility] 12-27-2023 Note HNO ID: [id number] Author: RERE VALENTINO APRN.WELDER RAILCAR MECHANIC Service: ? Author Type: Nurse Practitioner Type: Progress Notes Filed: 12/27/2023 12:50 Note Text: Rheumatology CONSULTATION Date of Service: 12/27/2023 Patient: Xiang West Medical Record: [id number] Primary Care Physician: Rere Aguiar MD Last Rheumatology visit: None at [facility] Referring Provider: No referring provider defined for this encounter. Xiang West is here today at request of Dr. Aguiar specifically for consultation of my opinion in regards to the chief complaint listed below. Correspondence will be shared today via the [facility] electronic health record or through regular mail, [...] - Pressure;Tingling Aching;Thr (more content not included)... [facility] 11-29-2023 Discharge summary Note Date/Time November 29, 2023 1:00pm [facility] Medical Records Department [address] [place] [address] Discharge Summary 11/29/23 1237 MR#: [id number] Acct: [id number] Name: XIANG WEST Rep #:[id number] : 1965 58 From: Wayne serrano MD PCP: Dr. Rere Aguiar MD Status:ADM ANITA Location: [place] [address] Providers Date of Admission: 11/26/23 Primary Care [...] on Discharge: 42 Hospital Course: Per HPI:XIANG WSET, is a 58 M with a past [...] shoulders. 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 Rere Aguiar MD; Dr. Wayne Friend MD~ Signed [facility] Work Phone: 1(980) 397-831801-01-2024 Discharge summary Author Wayne Friend [facility] November 29, 2023 10:14am Note Date/Time November 29, 2023 10 :06am [facility] System Medical Records Department [address] [place] [address] Instructions for Home/Discharge Instructions 11/29/23 1005 MR#: [id number] Acct: [id number] Name: XIANG WEST Rep #:[id number] : 1965 58 From: Wayne serrano MD [...] MD; Dr. Christiane Martin MD ~ Signed [facility] Work Phone: 1(372) 638-257812-31-2023 Progress note Author [facility] November 28, 2023 1:12pm Note Date/Time November 28, 2023 10:11am [facility] Medical Records Department [address] [place] [address] Progress Note 11/28/23 1007 MR#: [id number] Acct: [id number] Name: XIANG WEST Rep #:[id number] : 1965 58 From: Christiane Martin MD PCP: Dr. Rere Aguiar MD Status:ADM ANITA Location: MA3 ON216-2 Subjective Subjective Patient seen and examined. 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 Dietitian Recommendations/Changes [...] % (Auto) 66.5, Lymph % (Auto) 21.3, [place] % (Auto) 9.4, Eos % (Auto) 1.7, [...] documentation:30 mins Charges/Coding Visit Charges Inpatient E&M: 61995 Subs Hosp L2 11/28/23 1312 <Electronically signed by Christiane Martin MD> Christiane Martin MD Cosigner Signature (if applicable): CC: ~ Signed [facility] Work Phone: 1(616) 673-506012-30-2023 History and physical note Author Christiane [facility] November 27, 2023 3:01pm Note Date/Time November 26, 2023 11:27[facility] Medical Records Department [address] [place] [address] [place] [address] History & Physical Exam 11/26/23 1126 MR#: [id number] Acct: [id number] Name: XIANG WEST Rep #:[id number] : 1965 58 From: Christiane Martin MD PCP: Dr. Rere Aguiar MD Status:ADM ANITA Location: [place] [address] HPI - General General Date of Admission: [...] for debility due to bilateral knee pain. [facility] Medical History Cataract Gout Home Medications prednisone [...] % (Auto) 67.6, Lymph % (Auto) 19.9, [place] % (Auto) 10.4 H, Eos % (Auto) [...] Clarity Clear, Urine pH 5.0, Ur Specific [place] 1.025, Urine Protein 30 H, Urine Glucose [...] 8:51 EST Reading Location ID and State: [facility] / [place] Tel , Service support , Knee X-Ray [...] documentation:55 mins Charges/Coding Visit Charges Inpatient E&M: 26996 Init Hosp L2 Procedures Hospitalists Procedures: 23603 Advncd Care Plan 30 Min 11/27/23 1501 <Electronically signed by Christiane Martin MD> Cosigner Signature (if applicable): CC: Dr. Rere Aguiar MD; Dr. Christiane Martin MD~ Signed [facility] Work Phone: 1([phone]) 528-376412-30-2023 Progress note Author [facility] November 27, 2023 3:01pm Note Date/Time November 27, 2023 10:[address] [place] [address] Health System Medical Records Department [address] [place] [address] Progress Note 11/27/23 1041 MR#: [id number] Acct: [id number] Name: XIANG WEST Rep #:[id number] : 1965 58 From: Christiane Martin MD PCP: Dr. Rere Aguiar MD Status:ADM ANITA Location: [place] [id number] Subjective Subjective Patient seen and examined. 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 Dietitian Recommendations/Changes [...] % (Auto) 65.9, Lymph % (Auto) 20.5, [place] % (Auto) 10.6 H, Eos % (Auto) [...] documentation:32 mins Charges/Coding Visit Charges Inpatient E&M: 34613 Subs Hosp L2 11/27/23 1501 <Electronically signed by Christiane Martin MD> Christiane Martin MD Cosigner Signature (if applicable): CC: ~ Signed [facility] Work Phone: 1(579) 567-577412-29-2023 Discharge summary Author Antonio Jarvis [facility] November 26, 2023 11:43am Note Date/Time November 26, 2023 6:55am [facility] Medical Records Department [address] [place] [address] Emergency Department Summary 11/26/23 MR#: [id number] Acct: [id number] Name: XIANG WEST Rep #:[id number] : 1965 58 From: Rei German DO PCP: Dr. Rere Aguiar MD Status:REG ER Location: ED ADDENDUM by Dr. Antonio Jarvis MD on 11/26/23 at 1143 Patient was seen by rn case mgr. They contacted hospitalist. I then discussedcase with [...] knees to the bathroom. [facility] and myself asking him questions about [...] no other medical problems other than gout. [facility] Medical History Cataract Gout Home [...] not been out of bed. I did school adjustment counselor him again that we are just [...] admitted and recommended that I get the rn case mgr involved. There is no rn case mgr here as it is 8:35 in the morning and nobodywill be around till 10 PM. I will sign this out to the incoming ED physician for monitoring until rn case mgr can be consulted. Impression: 1. Acute kidney [...] % (Auto) 67.6 Lymph % (Auto) 19.9 [place] % (Auto) 10.4 H Eos % (Auto) [...] your Primary Care Provider. Call [facility] ([phone]) or report to the closest Emergency Room. Call 911 if necessary. 11/26/23 0836 <Electronically signed by Rei German DO> Cosigner Signature (if applicable): CC: Dr. Rere Aguiar MD ~ Signed [facility] Work Phone: 1(909) 656-455912-29-2023 Discharge summary Author Antonio Jarvis [facility] November 26, 2023 11:43am Note Date/Time November 26, 2023 6:55am [facility] Medical Records Department [address] [place] [address] Emergency Department Summary 11/26/23 MR#: [id number] Acct: [id number] Name: XIANG WEST Rep #:[id number] : 1965 58 From: Rei German DO PCP: Dr. Rere Aguiar MD Status:REG ER Location: ED ADDENDUM by Dr. Antonio Jarvis MD on 11/26/23 at 1143 Patient was seen by rn case mgr. They contacted hospitalist. I then discussedcase with [...] knees to the bathroom. Patient is [facility] and myself asking him questions about [...] no other medical problems other than gout. [facility] Medical History Cataract Gout Home [...] not been out of bed. I did school adjustment counselor him again that we are just [...] admitted and recommended that I get the rn case mgr involved. There is no rn case mgr here as it is 8:35 in the morning and nobodywill be around till 10 PM. I will sign this out to the incoming ED physician for monitoring until rn case mgr can be consulted. Impression: 1. Acute kidney [...] % (Auto) 67.6 Lymph % (Auto) 19.9 [place] % (Auto) 10.4 H Eos % (Auto) [...] your Primary Care Provider. Call [facility] ([phone]) or report to the closest Emergency Room. Call 911 if necessary. 11/26/23 0836 <Electronically signed by Rei German DO> Cosigner Signature (if applicable): CC: Dr. Rere Aguiar MD ~ Signed [facility] Work Phone: 1([phone]) 270-571505-31-2023 History of Present illness Narrative* Niyah Bui APRN.WELDER RAILCAR MECHANIC - 04/28/2023 2:03 PM EDT Patient came [...] with this care plan. [facility] German [facility] March 01, 2023 3:31pm Note Date/Time March 01, 2023 2:17 pm [facility] Medical Records Department [address] [place] [address] Emergency Department Summary 03/01/23 MR#: [id number] Acct: [id number] Name: XIANG WEST Rep #:[id number] : 1965 57 From: Rei German DO PCP: Dr. Rere Aguiar MD Status:REG ER Location: ED HPI History of Present Illness Chief Complaint: Lower Extremity Injury Narrative Narrative: 57-year-old male presented with right knee pain and swelling. He states that hewore his Novast shoes yesterday and today he has swelling [...] ambulate but he does have antalgic gait. [facility] Medical History (Updated 03/01/23 @ 15:28 by [...] your Primary Care Provider. Call [facility] ([phone]) or report to the closest Emergency Room. Call 911 if necessary. 03/01/23 1531 <Electronically signed by Rei German DO> Cosigner Signature (if applicable): CC: Dr. Rere Aguiar MD ~ Signed [facility] Work Phone: Discharge summary Author Dr. Montoya [facility] January 26, 2023 11:10am Note Date/Time January 26, 2023 11:07am [facility] Medical Records Department [address] [place] [address] Emergency Department Summary 01/26/23 MR#: [id number] Acct: [id number] Name: XIANG WEST Rep #:[id number] : 1965 57 From: Ranulfo Montoya MD PCP: Dr. Reer Aguiar MD Status:REG ER Location: ED HPI [...] surrounding areas. No overt/gross erythema, patient is -Guyanese and difficult to tell major and/or subtle [...] problems, contact your Primary Care Provider. Call [facility] ([phone]) or report to the closest Emergency Room. Call 911 if necessary. 01/26/23 1110 <Electronically signed by Ranulfo Montoya MD> Cosigner Signature (if applicable): CC: Dr. Rere Aguiar MD ~ Signed [facility] Work Phone: Discharge summary Author Dr. Rodriguez [facility] March 18, 2023 11:07am Note Date/Time March 18, 2023 10: 02am [facility] Medical Records Department [address] [place] [address] Emergency Department Summary 03/18/23 MR#: [id number] Acct: [id number] Name: XIANG WEST Rep #:[id number] : 1965 57 From: Sunday Rodriguez MD [...] is mainly his fourth and fifth digits. [facility] Cataract Gout Home Medications [...] continue ice and elevation at home and [id number]-[id number] analgesics. He has been walking on this [...] your Primary Care Provider. Call [facility] ([phone]) or report to the closest Emergency Room. Call 911 if necessary. 03/18/23 1107 <Electronically signed by Sunday Rodriguez MD> Cosigner Signature (if applicable): CC: Dr. Rere Aguiar MD ~ Signed [facility] Work Phone: Discharge summary Author Dr. Isaac [facility] May 15, 2023 7:39am Note Date/Time May 15, 2023 7:12 am [facility] Medical Records Department [address] [place] [address] Emergency Department Summary 05/15/23 MR#: [id number] Acct: [id number] Name: XIANG WEST Rep #:[id number] : 1965 57 From: Kota Pendleton PCP: Dr. Rere Aguiar MD Status:REG ER Location: ED HPI History of Present Illness Chief Complaint: Upper Extremity Injury [facility] Medical History Cataract Gout Home [...] - Ryanne Dumont MD [Med Staff - Concreting Supervisor] - Activity Restrictions/Additional Instructions: Thank you for [...] your Primary Care Provider. Call [facility] ([phone]) or report to the closest Emergency Room. Call 911 if necessary. 05/15/23 0739 <Electronically signed by Kota Isaac DO> Cosigner Signature (if applicable): CC: Dr. Rere Aguiar MD ~ Signed [facility] Work Phone: Discharge summary Author Mayank Le [facility] June 08, 2023 9:29am Note Date/Time June 08, 2023 9:29 am [facility] Medical Records Department [address] [place] [address] Emergency Department Summary 06/08/23 MR#: [id number] Acct: [id number] Name: XIANG WEST Rep #:[id number] : 1965 58 From: Mayank Almaguer PCP: [...] He is trying to get in with [facility] rheumatology call last week and he will try again. No family history of rheumatoid arthritis. He does work both hands, denies any specific injuries. Prior similar symptoms: Yes PFSH [facility] Medical History Cataract Gout Home Medications prednisone [...] restarted on prednisone. He states the call [facility] again to try to get appointment for outpatient evaluation and further work-up. All questions were answered. Re-evaluation: stable Disposition discussed with patient/family/significant other: Patient Case discussed with consulting clinician: N/A This note was generated with Appuri dictation software. It may contain incorrectwords, spelling, [...] work on your appointment with rheumatology at [facility]. Take the steroid as prescribed. Next dose tomorrow. Disposition Disposition: Home, Self Care What to do if you have Problems For any increased pain, shortness of breath, bleeding, nausea or vomiting, chestpain, or any unexpected problems, contact your Primary Care Provider. Call [facility] ([phone]) or report to the closest Emergency Room. Call 911 if necessary. 06/08/23928 <Electronically signed by Mayank Almaguer> Cosigner Signature (if applicable): CC: Dr. Rere Aguiar MD ~ Signed [facility] Work Phone: Discharge summary Author Mayank Kent [facility] August 03, 2023 8:50am Note Date/Time August 03, 2023 8:50am [facility] Medical Records Department [address] [place] [address] Emergency Department Summary 08/03/23 MR#: [id number] Acct: [id number] Name: XIANG WEST Rep #:[id number] : 1965 58 From: Mayank Almaguer PCP: [...] the past. Prior similar symptoms: Yes PFSH [facility] Medical History Cataract Gout Home Medications prednisone [...] clinician: N/A This note was generated with Appuri dictation software. It may contain incorrectwords, spelling, [...] your Primary Care Provider. Call [facility] ([phone]) or report to the closest Emergency Room. Call 911 if necessary. 08/03/23 0850 <Electronically signed by Mayank Almaguer> Cosigner Signature (if applicable): CC: Dr. Rere Aguiar MD ~ Signed [facility] Work Phone: Evaluation noteNo assessment information available [facility] Work Phone: Evaluation note* Diagnosis Pain- Primary Generalized pain [facility] [place] [facility] Diagnosis Onset Date Resolution Status Debility acute Weakness acute [facility] Work Phone: Evaluation note* Diagnosis Joint swelling- Primary Effusion of joint, site unspecified Vitamin D deficiency Unspecified vitamin D deficiency [facility]* Diagnosis Chronic pain of both knees- Primary Hyperuricemia Other abnormal blood chemistry [facility] Pain in joint, multiple sites Joint swelling Effusion of joint, site unspecified Chronic pain of both ankles Bilateral hand pain Pain in limb [facility]* Diagnosis Hyperuricemia- Primary Other abnormal blood chemistry [facility]* Diagnosis Chronic pain of both knees Hyperuricemia Other abnormal blood chemistry [facility]* Diagnosis Hyperuricemia- Primary Other abnormal blood chemistry Joint swelling Effusion of joint, site unspecified Vitamin D deficiency Unspecified vitamin D deficiency Pain in joint, multiple sites [facility]* Diagnosis Neck mass- Primary Swelling, mass, or lump in head and neck [facility]* Diagnosis Gout with manifestations- Primary Gout with other specified manifestations Vitamin D deficiency Unspecified vitamin D deficiency Chronic pain of both ankles Chronic pain of both knees [facility]* Diagnosis Onset Date Resolution Status Debility resolved Weakness resolved [facility] Work Phone: Evaluation note* Diagnosis Hyperuricemia Other abnormal blood chemistry [facility]* Diagnosis Neck mass Swelling, mass, or lump in head and neck documented [facility] [place] [facility]* Diagnosis Gout with manifestations- Primary Gout with other specified manifestations Chronic pain of both knees Vitamin D deficiency Unspecified vitamin D deficiency Hyperuricemia Other abnormal blood chemistry [facility] [place] [facility]* Diagnosis Lipoma of right upper extremity- Primary Lipoma of other specified sites [facility] [place] [facility]* Diagnosis Right shoulder pain, unspecified chronicity- Primary [facility]* Diagnosis Lipoma, unspecified site- Primary [facility] [place] [facility]* Diagnosis Right shoulder pain, unspecified chronicity [facility] [place] [facility]* Diagnosis Intramuscular lipoma- Primary Lipoma of other specified sites Lipoma of right upper extremity Lipoma of other specified sites Localized swelling, mass and lump, trunk [facility] Additional Instructions Gauze dressing on the affected area with antibiotic ointment like Neosporin with each dressing change. Use caution, wound is still healing and could split open if enough stresses placed on it.[facility] Work Phone: Hospital Discharge instructions Additional Instructions Motrin and Rye and for pain. Prednisone 40 mg a day for the next 7 days starting tomorrow. Follow-up with your doctor if not improving.[facility] Work Phone: Hospital Discharge instructions Additional Instructions Elevate hand to decrease pain and swelling Follow-up with your doctor if not improving. Prednisone 40 mg once a day for the next 7 days starting tomorrow. Stop the meloxicam.[facility] Work Phone: Hospital Discharge instructions Additional Instructions You need to call orthopedic surgeon or smoke inspector. Local smoke inspector is Dr. Tim Pearl MD. orthopedic surgeon on-call is Dr. Andrade. He may also use the [facility] which has orthopedic surgeons, smoke inspector, multiple specialist for joint and hand pain, based out of the [facility]. Repeat visits to the ER for orthopedics, [...] This is creating a blood pressure logWooster [facility] Work Phone: Hospital Discharge instructions Additional Instructions [...] care physician for further outpatient evaluation and management.[facility] Work Phone: Hospital Discharge instructions Additional Instructions Follow-up with your doctor and work on your appointment with rheumatology at [facility]. Take the steroid as prescribed. Next dose tomorrow.[facility] Work Phone: Hospital Discharge instructions Additional Instructions Take prednisone until finished. You need to follow-up with specialist.[facility] Work Phone: Hospital Discharge instructions Additional Instructions Recurrent swelling right middle finger. Take steroids as prescribed. You declined attempt to remove your ring from your finger. You understand the risks. Return if worsening symptoms.[facility] Work Phone: Reason for referral (narrative)* Diagnostic Procedure Only (Routine) - Closed Specialty Diagnoses / Procedures Referred By Ilir t Referred To Contact US IMAGING Diagnoses Pain in joint, multiple sites Joint swelling Bilateral hand pain Procedures US HAND/WRIST SYNOVIAL SCREEN LEFT US COMPL JOINT R-T W/IMAGE DOCUMENTATION Rere Valentino APRN.WELDER RAIL[employer] MECHANIC [address] [place] [address] [place] [address] Referral ID Status Reason Start Date Expiration Date V isits Requested Visits Authorized [id number] Closed Auto-Generate d Referral OON/Self Pay Override 12/27/2023 01/25/2025 1 1 * Diagnostic Procedure Only (Routine) - Closed Specialty Diagnoses / Procedures [facility] To [facility] Diagnoses Pain in joint, multiple sites Joint swelling Bilateral hand pain Procedures US HAND/WRIST SYNOVIAL SCREEN RIGHT US COMPL JOINT R-T W/IMAGE DOCUMENTATION Rere Valentino CONTINUOUS IMPROVEMENT FACILITATOR.WELDER RAILCAR MECHANIC [address] [place] [address] [place] [address] Referral ID Status Reason Start Date Expiration Date V isits Requested Visits Authorized [id number] Closed Auto-Generate d Referral 12/27/2023 01/25/2025 1 1 * Diagnostic Procedure Only (Routine) - Closed Specialty Diagnoses / Procedures [facility] Referred To Contact US IMAGING Diagnoses Pain in joint, multiple sites Joint swelling Chronic pain of both ankles Procedures US FOOT/ANKLE SYNOVIAL SCREEN LEFT US LMTD JOINT/OTH NONVASC XTR STRUX R-T W/IMG Rere Valentino CONTINUOUS IMPROVEMENT FACILITATOR.WELDER RAILCAR MECHANIC [address] [place] [address] [place] [address] Referral ID Status Reason Start Date Expiration Date V isits Requested Visits Authorized [id number] Closed Auto-Generate d Referral 12/27/2023 01/25/2025 1 1 * Diagnostic Procedure Only (Routine) - Closed Specialty Diagnoses / Procedures [facility] Referred To Contact US IMAGING Diagnoses Pain in joint, multiple sites Joint swelling Chronic pain of both ankles Procedures US FOOT/ANKLE SYNOVIAL SCREEN RIGHT US COMPL JOINT R-T W/IMAGE DOCUMENTATION Rere Valentino CONTINUOUS IMPROVEMENT FACILITATOR.WELDER RAILCAR MECHANIC [address] [place] [address] [place] [address] Referral ID Status Reason Start Date Expiration Date V isits Requested Visits Authorized [id number] Closed Auto-Generate d Referral 12/27/2023 01/25/2025 1 1 [facility] for referral (narrative)* Diagnostic Procedure Only (Routine) - Pending Review Specialty Diagnoses / Procedures Referred By [place] [facility] Referred To Contact XR IMAGING Diagnoses Right shoulder pain, unspecified chronicity Procedures XR SHOULDER GENERAL 3V OR MORE AP/TRUE AP/OTHER RIGHT RADEX SHOULDER COMPLETE MINIMUM 2 VIEWS Maci Dorsey DO [address] [place] [address] [place] [address] Referral ID Status Reason Start Date Expiration Date Visits Requested Visits Authorized [id number] Pending Review Auto-Generat ed Referral 05/02/2024 06/01/2025 1 1 [facility] for visit Narrative* Diagnostic Procedure Only (Routine) - Closed Specialty Diagnoses / Procedures [facility] Referred To Contact US IMAGING Diagnoses Pain in joint, multiple sites Joint swelling Bilateral hand pain Procedures US HAND/WRIST SYNOVIAL SCREEN LEFT US COMPL JOINT R-T W/IMAGE DOCUMENTATION Rere Valentino, CONTINUOUS IMPROVEMENT FACILITATOR.WELDER RAILCAR MECHANIC [address] [place] [address] [place] [address] Referral ID Status Reason Start Date Expiration Date V isits Requested Visits Authorized [id number] Closed Auto-Generate d Referral OON/Self Pay Override 12/27/2023 01/25/2025 1 1 [facility] for visit Narrative* Diagnostic Procedure Only (Routine) - Closed Specialty Diagnoses / Procedures Referred By [facility] t Referred To Contact XR IMAGING Diagnoses Right shoulder pain, unspecified chronicity Procedures XR SHOULDER GENERAL 3V OR MORE AP/TRUE AP/OTHER RIGHT RADEX SHOULDER COMPLETE MINIMUM 2 VIEWS Maci Dorsey DO [address] [place] [address] [place] [address] Referral ID Status Reason Start Date Expiration Date V isits Requested Visits Authorized [id number] Closed Auto-Generate d Referral 05/02/2024 06/01/2025 1 1 [facility] Summary Purpose Family History No Family History Records Found Relationship Condition Age at Onset Recorded Date/T mic mother Malignant neoplasm Unknown Advance Directives No Advanced Directives Records Found Advance Directive Response Recorded Date/ Time Advance Directives No December 29, 2017 2:23am Living Will No February 23, 2022 1:39pm Power of Gettering Filament Machine Operator No February 23 1:39pm Advance Directive Response Recorded Date/ Time Advance Directives No December 29, 2017 2:23am Living Will No March 14, 2022 3:57am Power of Gettering Filament Machine Operator No March 14 3:57am Advance Directive Response Recorded Date/ Time Advance Directives No December 29, 2017 2:23am Living Will No March 14, 2022 3:58pm Power of Gettering Filament Machine Operator No March 14 3:58pm Advance Directive Response Recorded Date/ Time Advance Directives No December 29, 2017 2:23am Living Will No April 01, 2022 8: 13pm Power of Gettering Filament Machine Operator No April 01, 2022 8:13pm Advance Directive Response Recorded Date/ Time Advance Directives No December 29, 2017 2:23am Living Will No April 04, 2022 5: 21pm Power of Gettering Filament Machine Operator No April 04, 2022 5:21pm Advance Directive Response Recorded Date/ Time Advance Directives No December 29, 2017 2:23am Living Will No August 29 11:08am Power of Gettering Filament Machine Operator No August 29 022 11:08am Advance Directive Response Recorded Date/ Time Advance Directives No December 29, 2017 2:23am Living Will No September 15 9:32am Power of Gettering Filament Machine Operator No September 15, 2022 9:32am Advance Directive Response Recorded Date/ Time Advance Directives No December 29, 2017 1:23am Living Will No October 14, 2 022 2:19am Power of Gettering Filament Machine Operator No October 14, 2022 2:19am Advance Directive Response Recorded Date/ Time Advance Directives No December 29, 2017 1:23am Living Will No October 27, 2 022 3:03am Power of Gettering Filament Machine Operator No October 27, 2022 3:03am Advance Directive Response Recorded Date/ Time Advance Directives No December 29, 2017 1:23am Living Will No November 22, 2 022 4:26pm Power of Gettering Filament Machine Operator No November 22, 2022 4:26pm Advance Directive Response Recorded Date/ Time Advance Directives No December 29, 2017 1:23am Living Will No December 25 8:52am Power of Gettering Filament Machine Operator No December 25, 2022 8:52am Advance Directive Response Recorded Date/ Time Advance Directives No December 29, 2017 1:23am Living Will No December 27 2:08pm Power of Gettering Filament Machine Operator No December 27, 2022 2:08pm Advance Directive Response Recorded Date/ Time Advance Directives No December 29, 2017 1:23am Living Will No January 26 2 023 10:42am Power of Gettering Filament Machine Operator No January 26, 2023 10:42am Advance Directive Response Recorded Date/ Time Advance Directives No December 29, 2017 2:23am Living Will No March 01, 2023 2:23pm Power of Gettering Filament Machine Operator No March 01 2:23pm Advance Directive Response Recorded Date/ Time Advance Directives No December 29, 2017 2:23am Living Will No March 18, 2023 9:51am Power of Gettering Filament Machine Operator No March 18 9:51am Advance Directive Response Recorded Date/ Time Advance Directives No December 29, 2017 2:23am Living Will No May 06, 2023 8 :59pm Power of Gettering Filament Machine Operator No May 06, 2023 8:59pm Advance Directive Response Recorded Date/ Time Advance Directives No December 29, 2017 2:23am Living Will No April 28, 2023 3 :20pm Power of Gettering Filament Machine Operator No April 28, 2023 3:20pm Advance Directive Response Recorded Date/ Time Advance Directives No December 29, 2017 2:23am Living Will No May 15, 2023 6:35am Power of Gettering Filament Machine Operator No May 15 6:35am Advance Directive Response Recorded Date/ Time Advance Directives No December 29, 2017 2:23am Living Will No June 08, 2023 9:17am Power of Gettering Filament Machine Operator No June 08 9:17am Advance Directive Response Recorded Date/ Time Advance Directives No December 29, 2017 2:23am Living Will No July 29 1:30pm Power of Gettering Filament Machine Operator No July 29, 2 023 1:30pm Advance Directive Response Recorded Date/ Time Advance Directives No December 29, 2017 2:23am Living Will No August 03 023 8:10am Power of Gettering Filament Machine Operator No August 03, 2023 8:10am Advance Directive Response Recorded Date/ Time Advance Directives No December 29, 2017 1:23am Living Will No November 26, 023 5:47am Power of Gettering Filament Machine Operator No November 26, 2023 5:47am Advance Directive Response Recorded Date/ Time Advance Directives No December 29, 2017 1:23am Living Will No November 26, 023 1:32pm Power of Gettering Filament Machine Operator No November 26, 2023 1:32pm Advance Directive Response Recorded Date/ Time Advance Directives No December 29, 2017 2:23am Living Will No March 21, 2024 12:13pm Power of Gettering Filament Machine Operator No March 21 12:13pm Chief Complaint and [...] WEAKNESS AND DEBILITY WEAKNESS AND DEBILITY lower [facility] 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 EMPLOYEE PHYSICAL FINGER INJURY Reason for Visit Debility Weakness Reason for Referral Specialty Diagnoses / Procedures Referred By Ilir hall Referred To Contact CT IMAGING Diagnoses Chronic pain of both knees Hyperuricemia Procedures CT KNEE WO IVCON RIGHT CT LOWER EXTREMITY W/O CONTRAST MATERIAL Rere Valentino, CONTINUOUS IMPROVEMENT FACILITATOR.WELDER RAILCAR MECHANIC [address] [place] [address] [place] [id number] Referral ID Status Reason Start Date Expiration Date Visits Requested Visits Authorized [id number] Additional Clinical Info Needed Auto-Generat ed Referral 01/18/2024 02/16/2025 1 1 Specialty Diagnoses / Procedures Referred By Ilir hall Referred To Contact Diagnoses Hyperuricemia Rere Valentino, CONTINUOUS IMPROVEMENT FACILITATOR.WELDER RAILCAR MECHANIC [address] [place] [address] Referral ID Status Reason Start Date Expiration Date V isits Requested Visits Authorized [id number] Pending Review 1 1 Referral ID Status Reason Start Date Expiration Date V isits Requested Visits Authorized [id number] Closed Clearance Not Met - Admin/Chairm an/Director Advise to Postpone/Res chedule or Not Proceed 02/04/2024 04/04/2024 1 1 Specialty Diagnoses / Procedures Referred By Ilir hall Referred To Contact MR IMAGING Diagnoses Neck mass Procedures MRI SOFT TISSUE NECK WO/W IVCON MRI ORBIT FACE & NECK W/O & W/CONTRAST Peggy Wood MD [address] [address] [facility] [place] [address] Referral ID Status Reason Start Date Expiration Date Visits Requested Visits Authorized [id number] Pending Review Auto-Generat ed Referral 03/14/2024 04/13/2025 1 1 Specialty Diagnoses / Procedures Referred By Contac t Referred To Contact Diagnoses Chronic pain of both knees Gout with manifestations Rere Valentino, CONTINUOUS IMPROVEMENT FACILITATOR.WELDER RAILCAR MECHANIC [address] [place] [address] Referral ID Status Reason Start Date Expiration Date Visits Re quested Visits Authorized [id number] Closed 1 1 Referral ID Status Reason Start Date Expiration Date V isits Requested Visits Authorized [id number] Closed Auto-Generate d Referral 04/21/2024 06/06/2024 1 1 Specialty Diagnoses / Procedures Referred By Contac t Referred To Contact Orthopedics Diagnoses Lipoma of right upper extremity Procedures CONSULT TO ORTHOPAEDICS OFFICE/OUTPATIENT [facility] 60 MINUTES Peggy Hunter MD [address] [address] Pascual Perry MD [address] [place] [address] Referral ID Status Reason Start Date Expiration Date Visits Requested Visits Authorized [id number] Authorized PCP Requested Referral 04/25/2024 04/25/2025 1 1 Specialty Diagnoses / Procedures Referred By Contac t Referred To Contact MR IMAGING Diagnoses Localized swelling, mass and lump, trunk Procedures MRI CHEST WALL/RIB WO IVCON RIGHT MRI CHEST W/O CONTRAST MATERIAL Luis Miguel Rhodes MD [address] [place] [address] [place] [address] [facility] [place] [address] Referral ID Status Reason Start Date Expiration Date Visits Requested Visits Authorized [id number] Pending Review Auto-Generat ed Referral 05/16/2024 06/15/2025 1 1 Additional Source Comments (unrecognized sect ion and content) No Status Records FoundNo Status Records FoundNo Status Records FoundNo Status Records FoundNo Status Records Found INFORMATION SOURCE (unrecogn ized section and content) DATE CREATED AUTHOR 05/24/2018 [facility] DATE CREATED AUTHOR AUTHOR'S ORGANIZ ATION 02/10/2024 [facility] DATE CREATED AUTHOR AUTHOR'S ORGANIZ ATION 04/26/2024 [facility] DATE CREATED AUTHOR AUTHOR'S ORGANIZ ATION 09/22/2024 [facility] DATE CREATED AUTHOR AUTHOR'S ORGANIZ ATION 10/06/2025 [facility] Goals (unrecognized section and content) Goals [...] Jorge Peters DO Attending Provider, Emergency P rovider Active [...] Dr. Mauricio Ceja DO Emergency Provider Active Marketing Financial Analyst Relationship Specialty Start Date End Date Rere Aguiar PCP - General Family Medicine 06/05/14 Team [...] German DO Emergency Provider Active Dr. Christiane aMrtin MD Admit Provider, Other Provider Active Dr. Wayne Friend MD Attending Provider Active Marketing Financial Analyst Relationship Specialty Start Date End Date ChaRere colon Ashok PCP - General Family Medicine 06/05/14 Marketing Financial Analyst Relationship Specialty Start Date End Date Rere Aguiar PCP - General Family Medicine 06/05/14 Marketing Financial Analyst Relationship Specialty Start Date End Date Rere Aguiar PCP - General Family Medicine 06/05/14 Marketing Financial Analyst Relationship Specialty Start Date End Date Rere Aguiar PCP - General Family Medicine 06/05/14 Marketing Financial Analyst Relationship Specialty Start Date End Date Rere Aguiar PCP - General Family Medicine 06/05/14 Marketing Financial Analyst Relationship Specialty Start Date End Date Rere Aguiar PCP - General Family Medicine 06/05/14 Marketing Financial Analyst Relationship Specialty Start Date End Date Rere Aguiar PCP - General Family Medicine 06/05/14 Marketing Financial Analyst Relationship Specialty Start Date End Date Rere Aguiar PCP - General Family Medicine 06/05/14 Marketing Financial Analyst Relationship Specialty Start Date End Date Rere Aguiar PCP - General Family Medicine 06/05/14 Marketing Financial Analyst Relationship Specialty Start Date End Date Rere Aguiar PCP - General Family Medicine 06/05/14 Marketing Financial Analyst Relationship Specialty Start Date End Date Rere Aguiar PCP - General Family Medicine 06/05/14 Marketing Financial Analyst Relationship Specialty Start Date End Date Rere Aguiar PCP - General Family Medicine 06/05/14 Marketing Financial Analyst Relationship Specialty Start Date End Date Rere Aguiar PCP - General Family Medicine 06/05/14 Marketing Financial Analyst Relationship Specialty Start Date End Date Rere Aguiar PCP - General Family Medicine 06/05/14 Team [...] Dr. Idris Capellan DO Emergency Provider Active Marketing Financial Analyst Relationship Specialty Start Date End Date Rere Aguiar PCP - General Family Medicine 06/05/14 Marketing Financial Analyst Relationship Specialty Start Date End Date Rere Aguiar PCP - General Family Medicine 06/05/14 Marketing Financial Analyst Relationship Specialty Start Date End Date Rere Aguiar PCP - General Family Medicine 06/05/14 Marketing Financial Analyst Relationship Specialty Start Date End Date DeniaRere mckeoner PCP - General Family Medicine 06/05/14 Marketing Financial Analyst Relationship Specialty Start Date End Date Rere Aguiar PCP - General Family Medicine 06/05/14 Source Comments (unrecognize d section and content) In the event this informatio n is protected by the Federal Confidentiality of Alcohol and Drug Abuse Patient Records regulations: The Federal rules restrict any use of the information to criminally investigate or prosecute any alcohol or drug abuse patient.[facility] the event this information is protected by the Federal Confidentiality of Alcohol and Drug Abuse Patient Records regulations: The Federal rules restrict any use of the information to criminally investigate or prosecute any alcohol or drug abuse patient.[facility] the event this information is protected by the Federal Confidentiality of Alcohol and Drug Abuse Patient Records regulations: The Federal rules restrict any use of the information to criminally investigate or prosecute any alcohol or drug abuse patient.[facility] the event this information is protected by the Federal Confidentiality of Alcohol and Drug Abuse Patient Records regulations: The Federal rules restrict any use of the information to criminally investigate or prosecute any alcohol or drug abuse patient.[facility] the event this information is protected by the Federal Confidentiality of Alcohol and Drug Abuse Patient Records regulations: The Federal rules restrict any use of the information to criminally investigate or prosecute any alcohol or drug abuse patient.[facility] the event this information is protected by the Federal Confidentiality of Alcohol and Drug Abuse Patient Records regulations: The Federal rules restrict any use of the information to criminally investigate or prosecute any alcohol or drug abuse patient.[facility] the event this information is protected by the Federal Confidentiality of Alcohol and Drug Abuse Patient Records regulations: The Federal rules restrict any use of the information to criminally investigate or prosecute any alcohol or drug abuse patient.[facility] the event this information is protected by the Federal Confidentiality of Alcohol and Drug Abuse Patient Records regulations: The Federal rules restrict any use of the information to criminally investigate or prosecute any alcohol or drug abuse patient.[facility] the event this information is protected by the Federal Confidentiality of Alcohol and Drug Abuse Patient Records regulations: The Federal rules restrict any use of the information to criminally investigate or prosecute any alcohol or drug abuse patient.[facility] Hospital[facility] the event this information is protected by the Federal Confidentiality of Alcohol and Drug Abuse Patient Records regulations: The Federal rules restrict any use of the information to criminally investigate or prosecute any alcohol or drug abuse patient.[facility] the event this information is protected by the Federal Confidentiality of Alcohol and Drug Abuse Patient Records regulations: The Federal rules restrict any use of the information to criminally investigate or prosecute any alcohol or drug abuse patient.[facility] Hospital[facility] the event this information is protected by the Federal Confidentiality of Alcohol and Drug Abuse Patient Records regulations: The Federal rules restrict any use of the information to criminally investigate or prosecute any alcohol or drug abuse patient.[facility] the event this information is protected by the Federal Confidentiality of Alcohol and Drug Abuse Patient Records regulations: The Federal rules restrict any use of the information to criminally investigate or prosecute any alcohol or drug abuse patient.[facility] the event this information is protected by the Federal Confidentiality of Alcohol and Drug Abuse Patient Records regulations: The Federal rules restrict any use of the information to criminally investigate or prosecute any alcohol or drug abuse patient.[facility] the event this information is protected by the Federal Confidentiality of Alcohol and Drug Abuse Patient Records regulations: The Federal rules restrict any use of the information to criminally investigate or prosecute any alcohol or drug abuse patient.[facility] Hospital[facility] the event this information is protected by the Federal Confidentiality of Alcohol and Drug Abuse Patient Records regulations: The Federal rules restrict any use of the information to criminally investigate or prosecute any alcohol or drug abuse patient.[facility] the event this information is protected by the Federal Confidentiality of Alcohol and Drug Abuse Patient Records regulations: The Federal rules restrict any use of the information to criminally investigate or prosecute any alcohol or drug abuse patient.[facility] HospitalIn the event this information is protected by the Federal Confidentiality of Alcohol and Drug Abuse Patient Records regulations: The Federal rules restrict any use of the information to criminally investigate or prosecute any alcohol or drug abuse patient.[facility] the event this information is protected by the Federal Confidentiality of Alcohol and Drug Abuse Patient Records regulations: The Federal rules restrict any use of the information to criminally investigate or prosecute any alcohol or drug abuse patient.[facility] HospitalIn the event this information is protected by the Federal Confidentiality of Alcohol and Drug Abuse Patient Records regulations: The Federal rules restrict any use of the information to criminally investigate or prosecute any alcohol or drug abuse patient.[facility]In the event this information is protected by the Federal Confidentiality of Alcohol and Drug Abuse Patient Records regulations: The Federal rules restrict any use of the information to criminally investigate or prosecute any alcohol or drug abuse patient.[facility]In the event this information is protected by the Federal Confidentiality of Alcohol and Drug Abuse Patient Records regulations: The Federal rules restrict any use of the information to criminally investigate or prosecute any alcohol or drug abuse patient.[facility]In the event this information is protected by the Federal Confidentiality of Alcohol and Drug Abuse Patient Records regulations: The Federal rules restrict any use of the information to criminally investigate or prosecute any alcohol or drug abuse patient.[facility] the event this information is protected by the Federal Confidentiality of Alcohol and Drug Abuse Patient Records regulations: The Federal rules restrict any use of the information to criminally investigate or prosecute any alcohol or drug abuse patient.[facility]In the event this information is protected by the Federal Confidentiality of Alcohol and Drug Abuse Patient Records regulations: The Federal rules restrict any use of the information to criminally investigate or prosecute any alcohol or drug abuse patient.[facility]In the event this information is protected by the Federal Confidentiality of Alcohol and Drug Abuse Patient Records regulations: The Federal rules restrict any use of the information to criminally investigate or prosecute any alcohol or drug abuse patient.[facility] HospitalIn the event this information is protected by the Federal Confidentiality of Alcohol and Drug Abuse Patient Records regulations: The Federal rules restrict any use of the information to criminally investigate or prosecute any alcohol or drug abuse patient.[facility] HospitalIn the event this information is protected by the Federal Confidentiality of Alcohol and Drug Abuse Patient Records regulations: The Federal rules restrict any use of the information to criminally investigate or prosecute any alcohol or drug abuse patient.[facility] HospitalIn the event this information is protected by the Federal Confidentiality of Alcohol and Drug Abuse Patient Records regulations: The Federal rules restrict any use of the information to criminally investigate or prosecute any alcohol or drug abuse patient.[facility] HospitalIn the event this information is protected by the Federal Confidentiality of Alcohol and Drug Abuse Patient Records regulations: The Federal rules restrict any use of the information to criminally investigate or prosecute any alcohol or drug abuse patient.[facility] Reason for Visit (unrecogniz ed section and content) Reason Comments Hand Pain L hand pain and swel ling x2 weeks intermittent Reason Comments Results Medication Problem Rx Sent to [facility] Reason Comments Appointment Reason Comments Patient Question Reason Comments Results Reason Comments Appointment ? 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 [address] [place] [address] [place] [address] Referral ID Status Reason Start Date Expiration Date V isits Requested Visits Authorized [id number] Closed Clearance Not Met - Admin/Chairm an/Director Advise to Postpone/Res chedule or Not Proceed 02/04/2024 04/04/2024 1 1 Reason Comments Results Reason Comments F/U 1 month Joint pain -- US yes terday -- Rt foot pain x 3 days ago -- Reason Comments Patient Update FYI Only, Knee Pain Reason Comments Consult Lump [...] & W/CONTRAST Peggy Wood MD [address] [address] [place] [address] Referral ID Status Reason Start Date Expiration Date V isits Requested Visits Authorized [id number] Closed Auto-Generate d Referral 04/21/2024 06/06/2024 1 1 Reason Comments Follow Up Rt knee swelling and soreness -- Prednisone has only taken 2 tabs over the past 4 days-- has only been taking 100mg of Allopurinol daily Reason Comments Appointment Ortho Reason Comments New Pain Reason Comments New Tumor/Mass Specialty Diagnoses / Procedures Referred By Ilir hall Referred To Contact Orthopedics Diagnoses Lipoma of right upper extremity Procedures CONSULT TO ORTHOPAEDICS OFFICE/OUTPATIENT NEW HIGH MDM 60 MINUTES Peggy Hunter MD [address] [facility] [address] [place] [address] Pascual Perry MD [address] [place] [address] Referral ID Status Reason Start Date Expiration Date V isits Requested Visits Authorized [id number] Closed PCP Requested Referral 04/25/2024 04/25/2025 1 [...] BE BASED ON THE PRIMARY CLINICAL RECORDS. [employer] provides no warranty or guarantee of the accuracy or completeness of information in this document.
[2025-10-07 23:11] LABS: Anion Gap 10 (5-15); BUN 21 mg/dL (4-19); BUN/Creat Ratio 16.4 RATIO (10-20); Calcium,Total 7.9 mg/dL (7.6-11.0); Carbon Dioxide 22.1 mmol/L (21.0-32.0); Chloride 108 mmol/L (98-108); Estimated Creatinine Clearance 88.21 ml/min (50-250); Glucose 113 mg/dL (70-99); Potassium 3.9 mmol/L (3.3-5.1)
[2025-10-07 23:22] LABS: Color, Urine Yellow (Yellow); Glucose, Dipstick Normal (Normal); Ketone-Dipstick Negative (Negative); Leukocyte Esterase-Dipstick Negative /ul (Negative); Nitrite-Dipstick Negative (Negative); Occult Blood-Urine 10 /ul (Negative); Protein-Dipstick 15 mg/dl (Negative); Specific Gravity, Urine 1.025 (1.002-1.030); Urine Bilirubin Dipstick Negative (Negative)
[2025-10-07 23:34] LABS: Mucous, Urine 1+ /hpf (<or=2+); Red Blood Cells-Urine 0-5 SEEN /hpf (0-5); Squamous Epithelial Cells - UA 0-5 SEEN /hpf (0-5)
--- NOTE | 2025-10-07 23:56 | EDS_ITS ---
HPI History of Present Illness Chief Complaint: Flank Pain Informant: patient Narrative Narrative: Patient is a 60-year-old male who reports a past medical history of gout. He was seen a few weeks ago secondary to right sided flank/rib pain. At that time it was felt it was musculoskeletal but there was concern for rib fracture or spontaneous pneumothorax or pneumonia so a rib series with chest x-ray was obtained. This revealed no acute findings and he reported feeling better after medication was discharged home. He states he has been doing well but then the last few days there has been return of pain to the right side. He states the symptoms are worse with motion. He denies any recent trauma. He states that there is no dysuria or hematuria however as the pain has returned he presents for evaluation [facility] Medical History Cataract Gout Home Medications Medication Instructions Recorded Last Taken Type dupilumab 300 mg/2 mL subcutaneous mg subcut 09/25/25 Unknown History pen injector (Dupixent) methocarbamol 500 mg tablet 500 mg PO 4X/DAY PRN Muscl e 09/25/25 Unknown Rx pain/spasm #40 tabs oxycodone-acetaminophen 5 mg-325 1 tab PO Q6H PRN pain 3 days #12 09/25/25 Unknown Rx mg tablet (Percocet) tabs gabapentin 300 mg capsule 300 mg PO TID 14 days #42 ca ps 10/07/25 Unknown Rx methocarbamol 500 mg tablet 1,000 mg (2 x 500 mg) PO 4 X/DAY 10/07/25 Unknown Rx PRN Muscle pain/spasm #56 tabs oxycodone-acetaminophen 5 mg-325 1 tab PO Q6H PRN pain 3 days #12 10/07/25 Unknown Rx mg tablet (Percocet) tabs Allergy/AdvReac Type Severity Reaction Status Date / Time No Known Allergies Allergy Verified 10/07/25 22:30 Family History Mother Cancer Surgical History H/O eye surgery Social History household members: other Smoking Status: Never smoker substance use type: does not use ROS ROS ED Constitutional Constitutional ED: Denies chills or fever(s) ENT ENT ED: Reports sore throat Cardiovascular Cardiovascular: Denies chest pain, palpitations or racing heartbeat Respiratory/Chest Respiratory/Chest: Denies cough or dyspnea Gastrointestinal Gastrointestinal: Denies abdominal pain, diarrhea, nausea or vomiting Genitourinary Genitourinary ED: Denies dysuria or hematuria Musculoskeletal Musculoskeletal: Reports other Details: Positive right flank/rib pain Integumentary Denies Abrasions or rash Neurologic Neurologic: Denies headache(s) Hematologic/Lymphatic Hematologic/Lymphatic: Denies easy bleeding or easy bruising EXAM Physical Exam Const Vital Signs: 10/07/25 22:29 Temperature 96.1 F L Temperature Source Temporal Pulse Rate 70 Respiratory Rate 14 Blood Pressure 165/91 H Blood Pressure Mean 115 Pulse Ox 98 Oxygen Delivery Method Room Air Positive well nourished and well developed General Appearance ED: well developed; Negative for pallor HEENT HEENT Narrative: Normocephalic atraumatic Eyes PERRL and EOMs intact bilaterally General Eye ED: Negative for scleral icterus Neck supple Resp normal respiratory effort and clear to auscultation bilaterally Cardio regular rate and regular rhythm Rate: other Other Details: Heart is regular rate and rhythm Radial and carotid pulses are equal and symmetric GI normal to inspection, nondistended, normoactive bowel sounds, non-tender, non-d istended and no masses GI Narrative: No voluntary guarding or rigidity or pulsatile mass No peritoneal signs Negative Hood sign Auscultation: normoactive bowel sounds Palpation: soft Back/Spine Back/Spine Narrative: No bony deformity or step-off of the thoracic or lumbar spine; no midline tenderness to palpation There is pain along the right CVA region. However there is also pain along the right posterior lateral rib cage rib isaias ons 7-10 that is reproducible with palpation and motion; no obvious bony deformity or crepitance noted No overlying soft tissue changes to suggest trauma or infection Extremity normal to inspection Extremity Narrative: No asymmetric edema no pitting edema negative Homans' sign bilaterally Neuro oriented x3, CN's II-XII intact bilaterally and no sensory deficits noted Sensorium / Orientation: alert Motor Exam: strength 5/5 throughout Psych mental status grossly normal Skin no rashes or lesions noted and no wounds Skin Narrative: No overlying soft tissue changes to suggest trauma or infection General Skin Exam: Negative for jaundice or pallor MDM MDM MDM Narrative Medical decision making narrative: Patient arrived to ER hypertensive but otherwise with stable vitals. As he was seen previously and it was known that there is no pneumothorax or rib fracture I felt that symptoms could be atypical presentation for kidney stone or pyelonephritis. Secondary to this basic labs and a urine sample were obtained as well as a noncontrast CT scan. Labs revealed no signs of acute kidney injury or UTI or pyelonephritis. CT scan showed no sign of kidney stone or intestinal infection. Therefore at this time as the pain is reproducible but there is no rash to suggest shingles and previous x-ray as well as today CT scan is not showing kidney stone or rib fracture or pneumothorax I do not feel the need for further workup and is otherwise safe for discharge with symptomatic care. History & Record Review Discussion w/independent historian: Patient Lab Data Attestation: I reviewed the patient's lab results. Labs: Laboratory Results - last 24 hr 10/07/25 10/07/25 22:50 23:15 WBC 9.4 RBC 4.73 Hgb 14.3 Hct 43.2 MCV 91.3 MCH 30.2 MCHC 33.1 RDW Std Deviation 46.3 H RDW Coeff of May 13.6 Plt Count 287 MPV 10.3 Immature Gran % (Auto) 0.400 Neut % (Auto) 47.5 Lymph % (Auto) 42.2 H [place] % (Auto) 7.5 Eos % (Auto) 1.9 Baso % (Auto) 0.5 Absolute Neuts (auto) 4.5 Absolute Lymphs (auto) 3.96 Nucleated RBC % 0 Sodium 139 Potassium 3.9 Chloride 108 Carbon Dioxide 22.1 Anion Gap 10 BUN 21 H Creatinine 1.25 H Estim Creat Clear Calc 88.21 Est GFR (MDRD) Non-Af 65 BUN/Creatinine Ratio 16.4 Glucose 113 H Calcium 7.9 Urine Color Yellow Urine Clarity Clear Urine pH 5.0 Ur Specific [place] 1.025 Urine Protein 15 H Urine Glucose (UA) Normal Urine Ketones Negative Urine Occult Blood 10 H Urine Nitrite Negative Urine Bilirubin Negative Urine Urobilinogen Normal Ur Leukocyte Esterase Negative Urine RBC 0-5 SEEN Urine WBC 0-5 SEEN Ur Squamous Epith Cells 0-5 SEEN Amorphous Sediment 1+ Urine Bacteria 1+ Urine Mucus 1+ Radiography Diagnostic Testing: Clinical Impression(s) from Imaging Studies Abdomen/Pelvis CT 10/07/25 22:43 IMPRESSION: No acute pelvi-abdominal abnormalities, collections or free air. Enlarged prostate. Reading Location: [place] [address] Discharge Plan Triage Chief Complaint: Flank Pain ED Provider: Bry Baer Dx/Rx/DC Orders Clinical Impression: Right flank pain, History of gout, Hypertension Instructions: ED Flank Pain with Uncertain Cause Prescriptions: New methocarbamol 500 mg tablet 1,000 mg PO 4X/DAY PRN (Reason: Muscle pain/spasm) Qty: 56 0RF gabapentin 300 mg capsule 300 mg PO TID 14 Days Qty: 42 0RF oxycodone-acetaminophen [Percocet] 5-325 mg tablet 1 tab PO Q6H PRN (Reason: pain) 3 Days Qty: 12 0RF No Action Dupixent Pen 300 mg/2 mL pen injector SUBCUT Patient Comments: [NO ORIGINAL SIG] methocarbamol 500 mg tablet 500 mg PO 4X/DAY PRN (Reason: Muscle pain/spasm) Qty: 40 0RF oxycodone-acetaminophen [Percocet] 5-325 mg tablet 1 tab PO Q6H PRN (Reason: pain) 3 Days Qty: 12 0RF Primary Care Provider: Care Physician,No Primary Referrals: Messi Younger MD [Med Staff - Active Staff, Family Practice] Care Physician,No Primary [Primary Care Provider, Medical] Activity Restrictions/Additional Instructions: Your last visit did not show any sign of rib fracture hole in your lung or lung infection. Today's visit does not show any obvious kidney stone or sign of kidney infection or intestinal infection. I do feel your symptoms are most likely musculoskeletal in nature. Therefore take the prescribed medication as directed to help control the pain and return to the ER should you have any further concerns. You may also use [id number] medications such as lidocaine patches or IcyHot to help with symptoms Print Language: Maltese Disposition Disposition: Home, Self Care
[2025-10-08 00:03] VITALS: BP 154/73; PULSE 64; RESP 18; TEMP 36.3; O2SAT 99
== END 2025-10-08 00:07 | disposition home or self-care (01) ==
PROVIDERS: Emergency Provider Emergency Medicine; Visit Provider Emergency Medicine
DX: R10.A1 Flank pain, right side (principal); I10 Essential (primary) hypertension; J02.9 Acute pharyngitis, unspecified; M10.9 Gout, unspecified
CPT/HCPCS: 74176; 80048; 81001; 85025; 96361; 96374; 99283; A4216